=== PATIENT | female | born 1965 | race Caucasian/White ===

== ENCOUNTER 2018-04-19 10:41 | Emergency (ER) | payer MEDICARE, MEDICAID, SELFPAY ==
[2018-04-19 10:46] VITALS: BP 123/68; PULSE 84; RESP 20; TEMP 36.6; O2SAT 97
--- NOTE | 2018-04-19 10:59 | ED.GENADUL_ITS ---
Discharge Plan Disposition Patient Disposition: HOME Condition: Improving Discharge Details Chief Complaint: RespSymp Clinical Impression: Acute bronchitis Primary Care Provider: Iliana Hurt ED Provider: Moe Taylor Home Meds and New Rx's Prescriptions: New azithromycin 250 mg tablet See Rx Instructions .ROUTE .COMPLEX Qty: 6 RF: 0 Continued cholecalciferol (vitamin D3) [Vitamin D3] 1,000 UNIT capsule 1,000 unit PO DAILY RF: 0 acetaminophen [Mapap Extra Strength] 500 MG tablet 1 - 2 tab PO PRN PRNRF: 0 methylphenidate HCl [Ritalin] 20 MG tablet 20 mg PO TID RF: 0 bupropion HCl [Wellbutrin] 100 MG tablet 100 mg PO BID RF: 0 Discharge Instructions Instructions: Acute Bronchitis (ED) Additional Instructions: Home to rest. Small, frequent sips of fluids to maintain hydration. Recommend continue with Tylenol and ibuprofen as needed for aches, pains, fever. Follow-up with regular doctor if not improving in 7 days time. Medical Decision Making 52-year-old female presents from home stating she has had 10-14 days of cough, congestion that over the past 2-3 days has become productive of yellow sputum. She has ongoing subjective fever chills. He had some posttussive emesis but no persistent nausea or abdominal pain. Her vital signs are normal and she is well-appearing. Consistent with a developing bronchitis likely secondary to previous flulike illness. Discussed with her options for management and will place her on a course of antibiotics to include coverage of atypical organisms HPI General Mode of arrival: ambulatory . Date/Time Provider Initiated Documentation: 04/19/18 10:42 . Limitations to Documentation: no limitations . Information obtained by: patient . History of Present Illness 52 year old F p resents to the emergency department with the chief complaint of Cough, congestion, fever, production of sputum over greater than 10 days, described as moderate, Quality is described as dull, and is localized to the chest. Patient started experiencing this day(s) and it has been constant. No relieving factors improve symptom(s), No exacerbating factors reported . Patient notes fever/chills, loss of appetite, weakness and other (Posttussive emesis). Patient did receive the following treatments prior to arrival, none Related Data Home Medications Medication Instructions Recorded Confirmed cholecalciferol (vitamin D3) 1,000 unit PO DAILY 06/13/15 04/19/18 [Vitamin D3] acetaminophen [Mapap Extra 1 - 2 tab PO PRN PRN 08/19/15 04/19/18 Strength] bupropion HCl [Wellbutrin] 100 mg PO BID 05/27/17 04/19/18 methylphenidate HCl [Ritalin] 20 mg PO TID 05/27/17 04/19/18 azithromycin See Rx Instructions .ROUTE 04/19/18 .COMPLEX #6 tab Previous Rx's Medication Instructions Recorded azithromycin See Rx Instructions .ROUTE 04/19/18 .COMPLEX #6 tab Allergies Allergy/AdvReac Type Severity Reaction Status Date / Time codeine AdvReac Unknown unable to Unverified 04/19/18 10:49 take related to colon removal ibuprofen AdvReac Unknown unable to Unverified 04/19/18 10:49 take related to colon removal General Stated Complaint: RespSymp WILL: 3 Review of Systems Review of Systems 8 systems reviewed and otherwise neg PFSH Social History Smoking and Tabacco status: Never Exam Narrative Exam Narrative: GEN: awake, alert, oriented 3. Pleasant, well groomed, interactive. HEAD: Normocephalic, atraumatic ENT: Mucous membranes moist, oropharynx unremarkable, External ear exam unremarkable EYES: PERRL, EOMI NECK: Full ROM, no HAYDEN, no menigismus CHEST/RESP: Nontender, clear to auscultation bilateral, no wheeze/rhonchi/rales, cough noted CARDIOVASCULAR: RRR, no murmur, rub padma. 2+ Rad pulse bilateral ABDOMEN: Soft, nontender, no mass. +Bowel sounds EXT: Full ROM, no edema, no rash Neuro: Grossly normal neurologic exam, conversant, interactive. Psych: Speech fluent, thoughts congruent, affect normal Course Vital Signs Temperature 36.6 C 04/19/18 10:46 Pulse 84 04/19/18 10:46 Respiratory Rate 20 04/19/18 10:46 Blood Pressure 123/68 04/19/18 10:46 Pulse Oximetry 97 04/19/18 10:46 Temperature 36.6 C 04/19/18 10:46 Temperature Source Temporal Artery Scan 04/19/18 10:46 Pulse 84 04/19/18 10:46 Respiratory Rate 20 04/19/18 10:46 Respiratory Effort Non-Labored 04/19/18 10:50 Respiratory Depth Normal 04/19/18 10:50 Blood Pressure 123/68 04/19/18 10:46 Blood Pressure Position Sitting 04/19/18 10:46 Pulse Oximetry 97 04/19/18 10:46 Oxygen Delivery Method Room Air 04/19/18 10:46 Oxygen Flow Rate 0 04/19/18 10:46 Pain Level 8 04/19/18 10:46
== END 2018-04-19 11:11 | disposition home or self-care (01) ==
PROVIDERS: Emergency Provider Emergency Medicine; PCP Nurse Practitioner
DX: R50.9 Fever, unspecified (principal); R09.89 Other specified symptoms and signs involving the circulatory and respiratory systems; J20.9 Acute bronchitis, unspecified
CPT/HCPCS: 99283

== ENCOUNTER 2018-05-09 10:15 | Outpatient (CLI) | payer MEDICARE, MEDICAID, SELFPAY ==
[2018-05-09 12:23] LABS: TSH (W/Ref FT4) 1.86 uIU/mL (0.358-3.74)
[2018-05-10 12:35] LABS: SS-A Antibody 2.1 Units (<20)
[2018-05-10 12:36] LABS: SS-B (La) Ab, IgG 4.1 Units (<20)
== END 2018-05-09 10:35 ==
PROVIDERS: PCP Nurse Practitioner; Visit Provider Physician Assistant
DX: R43.0 Anosmia (principal); R43.2 Parageusia; R09.89 Other specified symptoms and signs involving the circulatory and respiratory systems
CPT/HCPCS: 36415; 84443; 86235

== ENCOUNTER 2018-07-26 10:26 | Outpatient (REF) | payer MEDICARE, MEDICAID, SELFPAY ==
[2018-07-26 13:15] LABS: HCT 25.9 % (36.0-46.0); HGB 8.1 g/dL (12.0-15.5); Mean Corp. HGB Concentration 31.3 g/dL (32.0-36.0); Mean Corpuscular Hemoglobin 30.8 pg (27.0-33.0); Mean Corpuscular Volume 98.5 fL (80-95); Mean Platelet Volume 11.7 fL (8.0-11.0); Platelet Count 184 x1000/uL (130-400); RBC 2.63 m/cumm (4.00-5.20); RBC Distribution Width 14.6 % (11.7-14.6); White Blood Cell Count 5.26 k/cumm (4.4-10.8)
[2018-07-26 13:37] LABS: Iron 20 ug/dL (50-175); Total Iron Binding Capacity 383 ug/dL (250-450); Transferrin Sat 5 % (15-50)
[2018-07-26 14:00] LABS: Anion Gap 10.3 mmol/L (3-11); BUN 13 mg/dL (7-18); CO2 24.7 mmol/L (21.0-32.0); Calcium 8.1 mg/dL (8.5-10.1); Chloride 107 mmol/L (98-107); Ferritin 27 ng/mL (8-388); Glucose 128 mg/dL (70-100); Potassium 4.3 mmol/L (3.5-5.1); Sodium 142 mmol/L (136-145); Vitamin B12 593 pg/mL (193-986)
[2018-07-28 06:29] LABS: Vitamin D 25 Total 22.9 ng/ml (30-100)
== END 2018-07-26 10:46 ==
LOC: NCHCN 10:26
PROVIDERS: PCP Nurse Practitioner; Visit Provider Nurse Practitioner Family
DX: E55.9 Vitamin D deficiency, unspecified (principal); E53.8 Deficiency of other specified B group vitamins; R53.83 Other fatigue; C18.9 Malignant neoplasm of colon, unspecified
CPT/HCPCS: 80048; 82306; 85027; 82607; 82728; 83540; 83550

== ENCOUNTER 2018-07-29 16:31 | Observation (INO) | payer MEDICARE, MEDICAID, SELFPAY ==
[2018-07-29 16:33] VITALS: BP 117/57; PULSE 97; RESP 16; TEMP 37; O2SAT 98
[2018-07-29 17:02] VITALS: BP 116/40; BP 118/60; BP 124/61; PULSE 105; PULSE 90; PULSE 97
[2018-07-29 17:31] LABS: Abs Immature Grans 0.02 k/cumm (0.0-0.09); Absolute Basophil Count 0.02 k/cumm (0.0-0.2); Absolute Eosinophil Count 0.04 k/cumm (0.0-0.7); Absolute Lymphocyte Count 1.31 k/cumm (1.2-3.4); Absolute Monocyte Count 0.46 k/cumm (0.11-0.7); Absolute Neutrophil Count 3.33 k/cumm (1.2-6.7); Basophils % 0.4; Eosinophils % 0.8; Immature Grans % 0.4; Lymphocytes % 25.3; Mean Corp. HGB Concentration 30.9 g/dL (32.0-36.0); Mean Corpuscular Hemoglobin 30.4 pg (27.0-33.0); Mean Corpuscular Volume 98.2 fL (80-95); Mean Platelet Volume 10.8 fL (8.0-11.0); Monocytes % 8.9; Neutrophils % 64.2; Platelet Count 171 x1000/uL (130-400); RBC 2.24 m/cumm (4.00-5.20); RBC Distribution Width 14.9 % (11.7-14.6); White Blood Cell Count 5.18 k/cumm (4.4-10.8)
[2018-07-29 17:38] LABS: HGB 6.8 g/dL (12.0-15.5)
[2018-07-29 17:46] LABS: INR 1.1 (0.9-1.1); PTT Activated 19.8 sec (21.0-31.4)
[2018-07-29 17:49] LABS: ALT 26 U/L (12-78); AST 37 U/L (15-37); Albumin 2.9 g/dL (3.4-5.0); Alkaline Phosphatase 82 U/L (46-116); Anion Gap 9.5 mmol/L (3-11); BUN 11 mg/dL (7-18); Bilirubin, Total 0.6 mg/dL (0.2-1.0); CO2 24.5 mmol/L (21.0-32.0); CREATININE 0.79 mg/dL (0.55-1.02); Calcium 8.1 mg/dL (8.5-10.1); Chloride 106 mmol/L (98-107); Glucose 180 mg/dL (70-100); Magnesium 1.9 mg/dL (1.8-2.4); Potassium 3.8 mmol/L (3.5-5.1); Sodium 140 mmol/L (136-145); Total Protein 6.3 g/dL (6.4-8.2)
[2018-07-29 17:53] LABS: Troponin I < 0.02 ng/mL (0.00-0.06)
--- NOTE | 2018-07-29 18:38 | ED.GENADUL_ITS ---
Discharge Plan Disposition Patient Disposition: [facility] INPATIENT Condition: Stable Discharge Details Chief Complaint: GI Bleed Clinical Impression: GI bleed, History of colostomy, Anemia Primary Care Provider: Iliana Hurt ED Provider: Dede Saucedo Home Meds and New Rx's Prescriptions: No Action cholecalciferol (vitamin D3) [Vitamin D3] 1,000 UNIT capsule 2,000 unit PO DAILY RF: 0 acetaminophen [Mapap Extra Strength] 500 MG tablet 1 - 2 tab PO PRN PRNRF: 0 ferrous sulfate [iron] 325 mg (65 mg iron) Tablet 325 mg PO TID RF: 0 methylphenidate HCl [Ritalin] 20 MG tablet 20 mg PO TID RF: 0 bupropion HCl [Wellbutrin] 100 MG tablet 100 mg PO BID RF: 0 Medical Decision Making 52-year-old female with history of colon cancer status post colostomy in 1999 who presents for GI bleeding, weakness, dizziness and shortness of breath for the past week. Vitals within normal limits. Orthostats done on arrival which are negative. Labs drawn on arrival which noted a hemoglobin of 6.8, hemoglobin on 07/26 was 8.1. Normal white blood cell count. Normal coagulation studies. Normal electrolytes. Negative troponin. Abdomen soft and nontender and do not see an indication for imaging. Patient states she had her colostomy with Dr. Dyson in 1999. She states she attempted to call his office this week but was unable to reach him. She states 1 year ago he thought that the area could be cauterized as her bleeding is close to the surface and due to irritation from her colostomy bag. Patient is refusing blood transfusion. Patient drove herself to the emergency department. As patient is symptomatic and refusing blood, and is continuing to bleed, would be concerned about worsening anemia. 1800 -- Case discussed with surgery Dr. Acevedo -she recommends that colostomy bag be removed to see if there is a source of bleeding which can be cauterized with silver nitrate. If no source is seen, likely unable to do anything at this time, and to monitor her hemoglobin and follow-up with surgery as indicated. 1929 --colostomy bag removed and there was a small source approximately 1 to 2 mm noted as an area of oozing around 5:00 in the stump. This area was cauterized with silver nitrate and the bleeding was completely stopped. A colostomy bag was replaced. Will admit patient for continued monitoring and for recheck of hemoglobin this evening or tomorrow morning as she is symptomatic. She drove herself to the emergency department, and as she is symptomatic and refusing blood, would be concerned about worsening anemia and would recommend recheck of labs. 1944 --Case discussed with hospitalist -accepts patient for admission. Medical Records Medical records reviewed: Yes I reviewed the patient's medical records. Lab Data Lab results reviewed: Yes I reviewed the patient's lab results. Laboratory Tests Range/Units 07/29/18 07/29/18 07/29/18 17:20 17:20 17:20 WBC (4.4-10.8) k/cumm 5.18 RBC (4.00-5.20) m/cumm 2.24 L Hgb (12.0-15.5) g/dL 6.8 L* Hct (36.0-46.0) % 22.0 L MCV (80-95) fL 98.2 H MCH (27.0-33.0) pg 30.4 MCHC (32.0-36.0) g/dL 30.9 L RDW (11.7-14.6) % 14.9 H Plt Count (130-400) x1000/uL 171 MPV (8.0-11.0) fL 10.8 Immature Gran % 0.4 Neutrophils % 64.2 Lymphocytes % 25.3 Monocytes % 8.9 Eosinophils % 0.8 Basophils % 0.4 Absolute Neutrophils (1.2-6.7) k/cumm 3.33 Absolute Lymphocytes (1.2-3.4) k/cumm 1.31 Absolute Monocytes (0.11-0.7) k/cumm 0.46 Absolute Eosinophils (0.0-0.7) k/cumm 0.04 Absolute Basophils (0.0-0.2) k/cumm 0.02 PT (9.3-11.0) sec 11.0 INR (0.9-1.1) 1.1 APTT (21.0-31.4) sec 19.8 L Sodium (136-145) mmol/L 140 Potassium (3.5-5.1) mmol/L 3.8 Chloride (98-107) mmol/L 106 Carbon Dioxide (21.0-32.0) mmol/L 24.5 Anion Gap (3-11) mmol/L 9.5 BUN (7-18) mg/dL 11 Creatinine (0.55-1.02) mg/dL 0.79 Estimated GFR/1.73 m2 (mL/min/1.73m2) >= 60.00 Glucose (70-100) mg/dL 180 H Calcium (8.5-10.1) mg/dL 8.1 L Magnesium (1.8-2.4) mg/dL 1.9 Total Bilirubin (0.2-1.0) mg/dL 0.6 AST (15-37) U/L 37 ALT (12-78) U/L 26 Alkaline Phosphatase (46-116) U/L 82 Troponin I (0.00-0.06) ng/mL < 0.02 Total Protein (6.4-8.2) g/dL 6.3 L Albumin (3.4-5.0) g/dL 2.9 L ECG Data Attestation: I personally reviewed and interpreted this ECG (s) as follows: Interpretation: Rate of 82, sinus, no acute ST elevation or depression. QTc 430. QRS 90 HPI General Mode of arrival: ambulatory . Date/Time Provider Initiated Documentation: 07/29/18 16:41 . Limitations to Documentation: no limitations . Information obtained by: patient . HPI Narrative: Patient is a 52-year-old female with a history of colon cancer status post colectomy with colostomy in 1999 who presents with bright red GI bleeding, weakness, shortness of breath and dizziness for the past week. She states she had a similar history occur 1 year ago but resolved on its own. She does admit to frequent GI bleeding in her colostomy bag but states it only occurs over a day and resolves. She also admits to a history of anemia associated with this but denies any previous history of transfusions and states she does not want to receive any blood due to fear of disease from donated blood. She understands that this blood was tested but is still concerned and refuses. She states she saw her primary care doctor earlier this week and had labs drawn due to her anemia which noted a hemoglobin of 8. She presents today with worsening shortness of breath, dizziness, and weakness upon standing. She denies any fever, nausea, vomiting, abdominal pain. Related Data Home Medications Medication Instructions Recorded Confirmed cholecalciferol (vitamin D3) 2,000 unit PO DAILY 06/13/15 07/29/18 [Vitamin D3] acetaminophen [Mapap Extra 1 - 2 tab PO PRN PRN 08/19/15 07/29/18 Strength] bupropion HCl [Wellbutrin] 100 mg PO BID 05/27/17 07/29/18 methylphenidate HCl [Ritalin] 20 mg PO TID 05/27/17 07/29/18 ferrous sulfate [iron] 325 mg PO TID 07/29/18 07/29/18 Allergies Allergy/AdvReac Type Severity Reaction Status Date / Time codeine AdvReac Unknown unable to Unverified 07/29/18 16:46 take related to colon removal ibuprofen AdvReac Unknown unable to Unverified 07/29/18 16:46 take related to colon removal General Stated Complaint: GI Bleed WILL: 2 Review of Systems Review of Systems All systems reviewed & are unremarkable except as noted in HPI and below Constitutional Reports as per HPI, Denies chills, Reports fatigue, Denies fever(s) and Reports weakness Eyes Denies blurry vision ENT Reports dizziness, Denies sore throat and Denies throat swelling Cardiovascular Reports chest pain and Reports dyspnea Respiratory Denies cough and Reports dyspnea Gastrointestinal Denies abdominal pain, Reports hematochezia, Denies diarrhea and Denies vomiting Genitourinary Denies hematuria and Denies dysuria Musculoskeletal Denies back pain and Denies numbness Integumentary/Breasts Denies lesions and Denies rash Neurologic Reports dizziness, Denies focal weakness, Denies numbness and Reports weakness Endocrine Reports fatigue Allergic/Immunologic Denies throat swelling [facility] Medical History PTSD (post-traumatic stress disorder) (Acute) Colon cancer (Chronic) Surgical History History of endometrial ablation (Acute) S/P colectomy (Acute) H/O ileostomy (Chronic) Social History Smoking/Tobacco Use Status: Never Alcohol Intake: never Drug use: Never Do you feel safe at home: Yes Do you feel safe in your relationship?: Yes Exam Const General: cooperative, healthy appearing and no acute distress [facility] Head: normal to inspection Face and sinus: normal facial exam Eyes General: appearance normal, both eyes and all related structures EOM: EOM intact bilaterally Neck Neck: normal visual inspection and No submandibular swelling Lymphatic: no lymphadenopathy noted Chest Chest: normal inspection of the chest and no tenderness Resp Effort & Inspection: normal respiratory effort and able to speak in complete sentences Auscultation: clear to auscultation bilaterally Cardio Rate: regular rate Rhythm: regular rhythm GI Inspection: normal to inspection and other (Colostomy bag in right lower quadrant. No bleeding around site.) Palpation: soft, not firm, not rigid and nontender Auscultation: normal bowel sounds Skin General skin exam: no rashes or lesions noted Neuro General: alert, awake and oriented x3 Cognition: normal cognition Speech: speech normal Motor: muscle tone normal throughout Sensory Exam: no sensory deficits noted Extrem General: normal to inspection, full ROM and no edema Psych Appearance: grossly normal Mental Status: mental status grossly normal Speech and Movement: speech and movement normal Affect: normal affect Course Vital Signs Temperature 98.6 F 07/29/18 16:33 Pulse 97 H 07/29/18 16:33 Respiratory Rate 16 07/29/18 16:33 Blood Pressure 117/57 L 07/29/18 16:33 Pulse Oximetry 98 07/29/18 16:33 Temperature 98.6 F 07/29/18 16:33 Temperature Source Skin 07/29/18 16:33 Pulse 90 07/29/18 17:02 Respiratory Rate 16 07/29/18 16:33 Respiratory Effort 07/29/18 16:49 Blood Pressure 116/40 L 07/29/18 17:02 Blood Pressure Position Sitting 07/29/18 16:33 Pulse Oximetry 98 07/29/18 16:33 Oxygen Delivery Method Room Air 07/29/18 16:33 Oxygen Flow Rate 0 07/29/18 16:33 Pain Level 0 07/29/18 16:33
[2018-07-29 18:41] VITALS: BP 117/51; PULSE 85; RESP 18; TEMP 37.3; O2SAT 98
--- NOTE | 2018-07-29 20:22 | HPE_ITS ---
Date of service: 07/29/18 Time of Service: 20:14 Assessment and Plan (1) GI bleed: Current visit: Yes Status: Chronic Lower GI bleed secondary apparently to unspecified stomatitis. Will await results of ER cautery but in any event will watch overnight and repeat hematocrit in AM. If bleeding persists will consult surgery. History of Present Illness Chief Complaint: lower GI bleed Narrative: 52 year old female with h/o colon CA, sp/ colostomy in 1999. Present with 1 week of bleeding per stoma. On no blo od thinners. In ER hematocrit of 22 was noted. Patient declined transfusion. Surgery was consulted by phone and advised take down of ostomy bag and cautery of any visible bleeding; this is being attempted at this time. Patient denies abdominal pain. States this type of bleeding has occurred once before but resolved spontaneously.She does agree to stay in hospital and says she would reconsider transfusion if counts continued to drop Review of Systems Review of Systems All systems reviewed & are unremarkable except as noted in HPI and below PFSH Medical History PTSD (post-traumatic stress disorder) (Acute) Colon cancer (Chronic) Surgical History History of endometrial ablation (Acute) S/P colectomy (Acute) H/O ileostomy (Chronic) Social History Smoking/Tobacco Use Status: Never Alcohol Intake: never Drug use: Never Do you feel safe at home: Yes Do you feel safe in your relationship?: Yes Meds Home Medications Medication Instructions Recorded Confirmed Type cholecalciferol (vitamin D3) 2,000 unit PO DAILY 06/13/15 07/29/18 History [Vitamin D3] acetaminophen [Mapap Extra 1 - 2 tab PO PRN PRN 08/19/15 07/29/18 History Strength] bupropion HCl [Wellbutrin] 100 mg PO BID 05/27/17 07/29/18 History methylphenidate HCl [Ritalin] 20 mg PO TID 05/27/17 07/29/18 History ferrous sulfate [iron] 325 mg PO TID 07/29/18 07/29/18 History Allergies Allergy/AdvReac Type Severity Reaction Status Date / Time codeine AdvReac Unknown unable to Unverified 07/29/18 16:46 take related to colon removal ibuprofen AdvReac Unknown unable to Unverified 07/29/18 16:46 take related to colon removal Exam Narrative Exam Narrative: 117/51, 85, 18, 37.3; HEENT unremarkable; neck supple; lungs clear; heart RRR; abdomen soft, NT, ostomy in place (opaque bag, unable to assess contents visually); extr: no edema; neuro non-focal Results Labs : 07/29/18 17:20 07/29/18 17:20 Laboratory Results - last 24 hr 07/29/18 07/29/18 07/29/18 17:20 17:20 17:20 WBC 5.18 RBC 2.24 L Hgb 6.8 L* Hct 22.0 L MCV 98.2 H MCH 30.4 MCHC 30.9 L RDW 14.9 H Plt Count 171 MPV 10.8 Immature Gran % 0.4 Neutrophils % 64.2 Lymphocytes % 25.3 Monocytes % 8.9 Eosinophils % 0.8 Basophils % 0.4 Absolute Neutrophils 3.33 Absolute Lymphocytes 1.31 Absolute Monocytes 0.46 Absolute Eosinophils 0.04 Absolute Basophils 0.02 PT 11.0 INR 1.1 APTT 19.8 L Sodium 140 Potassium 3.8 Chloride 106 Carbon Dioxide 24.5 Anion Gap 9.5 BUN 11 Creatinine 0.79 Estimated GFR/1.73 m2 >= 60.00 Glucose 180 H Calcium 8.1 L Magnesium 1.9 Total Bilirubin 0.6 AST 37 ALT 26 Alkaline Phosphatase 82 Troponin I < 0.02 Total Protein 6.3 L Albumin 2.9 L Last Vital Signs Temp 37.3 C 07/29/18 18:41 Pulse 85 07/29/18 18:41 Resp 18 07/29/18 18:41 BP 117/51 L 07/29/18 18:41 Pulse Ox 98 07/29/18 18:41
[2018-07-29 21:15] VITALS: BP 135/81; PULSE 80; RESP 16; TEMP 37; O2SAT 98
[2018-07-30] VITALS (14 sets, daily range): BP systolic 91–128; BP diastolic 59–72; PULSE 65–95; RESP 14–19; TEMP 36.6–37.1; O2SAT 95–98
--- NOTE | 2018-07-30 01:19 | NUR.NOTE ---
Nursing Note: colostomy bag changed post cauterization of bleeding at site on the stoma at 1999.
[2018-07-30] MEDS: Methylphenidate 10 MG TAB 20 MG PO ×3 (07:00→17:50)
[2018-07-30 07:01] LABS: Mean Corp. HGB Concentration 29.9 g/dL (32.0-36.0); Mean Corpuscular Hemoglobin 29.7 pg (27.0-33.0); Mean Corpuscular Volume 99.5 fL (80-95); Mean Platelet Volume 10.9 fL (8.0-11.0); Platelet Count 141 x1000/uL (130-400); RBC 1.95 m/cumm (4.00-5.20); White Blood Cell Count 3.86 k/cumm (4.4-10.8)
[2018-07-30 07:09] LABS: HCT 19.4 % (36.0-46.0); HGB 5.8 g/dL (12.0-15.5)
[2018-07-30] MEDS: Pantoprazole 40 MG VIAL IVP ×2 (08:07→19:43)
[2018-07-30] MEDS: Acetaminophen 500 MG TAB 1000 MG PO (08:07)
[2018-07-30] MEDS: Ferrous Sulfate 325 MG TAB PO ×3 (08:07→19:45)
[2018-07-30] MEDS: Normal Saline Flush 10 ML SYR IVP ×2 (08:08→19:43)
[2018-07-30] MEDS: buPROPion 100 MG TAB PO (08:30)
--- NOTE | 2018-07-30 09:44 | W.PM.PROGNOT ---
Date of Service Date of service: 07/30/18 Time of Service: 09:45 Assessment and Plan (1) GI bleed: Current visit: Yes Status: Chronic Lower GI bleed secondary apparently to unspecified stomatitis, cauterized in the ED after discussion with surgery. Even so, hct dropped overnight. Given symptomatic anemia with ongoing blood loss I strongly urged Janice to proceed with transfusion, 2 units. After reviewing her concerns and the risks/benefits, she agrees to proceed. I also added PPI as a precaution, but the source does appear to be the stoma. If h/h continue to drop later today and tomorrow, will discuss with surgery and expand evaluation likely to include EGD. (2) Anemia, blood loss: Current visit: Yes Status: Acute Has been on iron chronically, likely this represents acute on chronic blood loss. Has responded to oral iron in past but has taken months. (3) ADHD: Current visit: Yes Status: Acute Mood and behavior appears stable, continue outpatient methyfenidate and bupropion (4) DVT prophylaxis: Current visit: Yes Status: Acute holding medical prophylaxis with active bleed. SCDs. (5) Discharge planning issues: Current visit: Yes Status: Acute Hemodynamically stable so continue on medical floor. Home when h/h stable. Subjective Patient reports: no new complaints and afebrile; denies diarrhea and nausea Interval history since last seen: Still feeling lightheaded with sitting up, also some shortness of breath and slight chest tightness with activity. No current chest pain or palpitations. She feels week all over but nothing focal. Has not noted more blood in ostomy bag since cautery done, though stool occult blood positive. Exam Narrative Exam Narrative: HEENT: conjunctiva clear, pale, MMM. neck supple; lungs CTAB with normal effort; heart RRR no m/g/r; abdomen soft, NT, ostomy in place (no gross red blood or clots in bag or around stoma); extr: no edema, not tender; neuro non-focal Objective Objective Clinical Data: Abnormal lab results 07/29/18 07/29/18 07/29/18 Range/Units 17:20 17:20 17:20 WBC (4.4-10.8) k/cumm RBC 2.24 L (4.00-5.20) m/cumm Hgb 6.8 L* (12.0-15.5) g/dL Hct 22.0 L (36.0-46.0) % MCV 98.2 H (80-95) fL MCHC 30.9 L (32.0-36.0) g/dL RDW 14.9 H (11.7-14.6) % APTT 19.8 L (21.0-31.4) sec Glucose 180 H (70-100) mg/dL Calcium 8.1 L (8.5-10.1) mg/dL Total Protein 6.3 L (6.4-8.2) g/dL Albumin 2.9 L (3.4-5.0) g/dL Crossmatch 07/30/18 07/30/18 Range/Units 06:30 07:35 WBC 3.86 L (4.4-10.8) k/cumm RBC 1.95 L (4.00-5.20) m/cumm Hgb 5.8 L* (12.0-15.5) g/dL Hct 19.4 L* (36.0-46.0) % MCV 99.5 H (80-95) fL MCHC 29.9 L (32.0-36.0) g/dL RDW 15.0 H (11.7-14.6) % APTT (21.0-31.4) sec Glucose (70-100) mg/dL Calcium (8.5-10.1) mg/dL Total Protein (6.4-8.2) g/dL Albumin (3.4-5.0) g/dL Crossmatch See Detail Vital Signs Temperature 36.9 C 07/30/18 07:20 Temperature Source Tympanic 07/30/18 07:20 Pulse 66 07/30/18 07:20 Pulse Rhythm Regular 07/30/18 07:50 Respiratory Rate 17 07/30/18 07:20 Respiratory Effort Non-Labored 07/30/18 07:50 Respiratory Depth Normal 07/30/18 07:50 Respiratory Pattern Normal 07/30/18 07:50 Blood Pressure 100/66 07/30/18 07:20 Blood Pressure Position Sitting 07/29/18 16:33 Pulse Oximetry 96 07/30/18 07:20 Oxygen Delivery Method Room Air 07/30/18 07:20 Oxygen Flow Rate 0 07/30/18 07:20 Pain Level 4 07/30/18 08:07 Intake & Output 07/29/18 07/29/18 07/30/18 11:59 23:59 11:59 Intake Total 240 / 240 Output Total 300 / 300 Balance -60 / -60 Weight 97.931 kg Intake: Oral 240 / 240 Output: Stool 300 / 300 Other: Urine Color Yellow Yellow Urine Appearance Clear Clear Urine Odor None None Stool Occult Blood Positive Stool Size Moderate Stool Characteristics Liquid Brown Emesis Description None Voiding Methods Toilet Toilet Laboratory Results WBC 3.86 k/cumm (4.4-10.8) L 07/30/18 06:30 RBC 1.95 m/cumm (4.00-5.20) L 07/30/18 06:30 Hgb 5.8 g/dL (12.0-15.5) L* 07/30/18 06:30 Hct 19.4 % (36.0-46.0) L* 07/30/18 06:30 MCV 99.5 fL (80-95) H 07/30/18 06:30 MCH 29.7 pg (27.0-33.0) 07/30/18 06:30 MCHC 29.9 g/dL (32.0-36.0) L 07/30/18 06:30 RDW 15.0 % (11.7-14.6) H 07/30/18 06:30 Plt Count 141 x1000/uL (130-400) 07/30/18 06:30 MPV 10.9 fL (8.0-11.0) 07/30/18 06:30 Immature Gran % 0.4 07/29/18 17:20 Neutrophils % 64.2 07/29/18 17:20 Lymphocytes % 25.3 07/29/18 17:20 Monocytes % 8.9 07/29/18 17:20 Eosinophils % 0.8 07/29/18 17:20 Basophils % 0.4 07/29/18 17:20 Absolute Neutrophils 3.33 k/cumm (1.2-6.7) 07/29/18 17:20 Absolute Lymphocytes 1.31 k/cumm (1.2-3.4) 07/29/18 17:20 Absolute Monocytes 0.46 k/cumm (0.11-0.7) 07/29/18 17:20 Absolute Eosinophils 0.04 k/cumm (0.0-0.7) 07/29/18 17:20 Absolute Basophils 0.02 k/cumm (0.0-0.2) 07/29/18 17:20 PT 11.0 sec (9.3-11.0) 07/29/18 17:20 INR 1.1 (0.9-1.1) 07/29/18 17:20 APTT 19.8 sec (21.0-31.4) L 07/29/18 17:20 Sodium 140 mmol/L (136-145) 07/29/18 17:20 Potassium 3.8 mmol/L (3.5-5.1) 07/29/18 17:20 Chloride 106 mmol/L (98-107) 07/29/18 17:20 Carbon Dioxide 24.5 mmol/L (21.0-32.0) 07/29/18 17:20 Anion Gap 9.5 mmol/L (3-11) 07/29/18 17:20 BUN 11 mg/dL (7-18) 07/29/18 17:20 Creatinine 0.79 mg/dL (0.55-1.02) 07/29/18 17:20 Estimated GFR/1.73 m2 >= 60.00 (mL/min/1.73m2) 07/29/18 17:20 Glucose 180 mg/dL (70-100) H 07/29/18 17:20 Calcium 8.1 mg/dL (8.5-10.1) L 07/29/18 17:20 Magnesium 1.9 mg/dL (1.8-2.4) 07/29/18 17:20 Total Bilirubin 0.6 mg/dL (0.2-1.0) 07/29/18 17:20 AST 37 U/L (15-37) 07/29/18 17:20 ALT 26 U/L (12-78) 07/29/18 17:20 Alkaline Phosphatase 82 U/L (46-116) 07/29/18 17:20 Troponin I < 0.02 ng/mL (0.00-0.06) 07/29/18 17:20 Total Protein 6.3 g/dL (6.4-8.2) L 07/29/18 17:20 Albumin 2.9 g/dL (3.4-5.0) L 07/29/18 17:20 Patient ABO/Rh A Positive 07/30/18 07:35 Antibody Screen Negative 07/30/18 07:35 Crossmatch See Detail 07/30/18 07:35
--- NOTE | 2018-07-30 14:17 | PDOC.CMIN ---
Care Management Initial Assess REASON FOR HOSPITALIZATION:: Lower GI Bleed PAST MEDICAL HISTORY/PAST SURGICAL HISTORY:: Medical: PTSD (post-traumatic stress disorder) (Acute); Colon cancer (Chronic). Surgical: History of endometrial ablation (Acute); S/P colectomy (Acute); H/O ileostomy (Chronic) PREVIOUS FUNCTIONAL STATUS/SOCIAL/FAMILY SUPPORTS:: This is the first [facility] Inpatient admission for Janice. She has 5 children and they all live close to her. The youngest, 20 yo, is a dabetic and lives with her at their [place] home. She also has custody of her 15 yo granddaughter. Current source of income is SSID. Independent at baseline and had had a colostomy since age 32. She has a English Mendez, Max, that she loves. CURRENT FUNCTIONAL STATUS:: Lying in bed. One unit of blood has just finished transfusing and she said she feels a little better. Is hoping to be back on her feet and ready to go home tomorrow. ADVANCE DIRECTIVES:: None on file at [facility] Has patient been provided with information about the portal?: No Did the patient sign up for the portal?: No CODE STATUS:: Full Code CODE STATUS COMMENT:: Full Code INSURANCE COVERAGE / FINANCIAL ISSUES:: Medicaid. Medicare CURRENT HOME/COMMUNITY SERVICES/EQUIPMENT:: None at this time PRIMARY CARE PHYSICIAN:: Iliana Hurt NP POTENTIAL DISCHARGE NEEDS:: None identified at this time PATIENT/FAMILY EDUCATION NEEDS:: Discharge instructions and follow up appointments ANTICIPATED BARRIERS TO DISCHARGE:: None identified TRANSPORTATION:: Family will transpport PLAN:: Janice will return home when medically cleared for discharge. No services needed. Family will transport.
--- NOTE | 2018-07-30 15:03 | INITIAL_ITS ---
Care Management Initial Assess REASON FOR HOSPITALIZATION:: Lower GI Bleed PAST MEDICAL HISTORY/PAST SURGICAL HISTORY:: Medical: PTSD (post-traumatic stress disorder) (Acute); Colon cancer (Chronic). Surgical: History of endometrial ablation (Acute); S/P colectomy (Acute); H/O ileostomy (Chronic) PREVIOUS FUNCTIONAL STATUS/SOCIAL/FAMILY SUPPORTS:: This is the first [facility] Inpatient admission for Janice. She has 5 children and they all live close to her. The youngest, 20 yo, is a dabetic and lives with her at their [place] home. She also has custody of her 15 yo granddaughter. Current source of income is SSID. Independent at baseline and had had a colostomy since age 32. She has a Green[place] Mendez, Max, that she loves. CURRENT FUNCTIONAL STATUS:: Lying in bed. One unit of blood has just finished transfusing and she said she feels a little better. Is hoping to be back on her feet and ready to go home tomorrow. ADVANCE DIRECTIVES:: None on file at [facility] Has patient been provided with information about the portal?: No Did the patient sign up for the portal?: No CODE STATUS:: Full Code CODE STATUS COMMENT:: Full Code INSURANCE COVERAGE / FINANCIAL ISSUES:: Medicaid. Medicare CURRENT HOME/COMMUNITY SERVICES/EQUIPMENT:: None at this time PRIMARY CARE PHYSICIAN:: Iliana Hurt NP POTENTIAL DISCHARGE NEEDS:: None identified at this time PATIENT/FAMILY EDUCATION NEEDS:: Discharge instructions and follow up appointments ANTICIPATED BARRIERS TO DISCHARGE:: None identified TRANSPORTATION:: Family will transpport PLAN:: Janice will return home when medically cleared for discharge. No services needed. Family will transport.
[2018-07-30 18:03] LABS: HCT 27.6 % (36.0-46.0)
[2018-07-31 00:15] VITALS: BP 153/72; PULSE 82; RESP 16; TEMP 37.4; O2SAT 98
[2018-07-31 04:00] VITALS: BP 121/62; PULSE 74
[2018-07-31] MEDS: Methylphenidate 10 MG TAB 20 MG PO ×2 (06:07→11:30)
[2018-07-31 07:03] LABS: HCT 28.7 % (36.0-46.0)
[2018-07-31 07:30] VITALS: O2SAT 97
[2018-07-31 07:40] VITALS: BP 139/89; PULSE 97; RESP 20; TEMP 37.3; O2SAT 95
[2018-07-31] MEDS: Pantoprazole 40 MG VIAL IVP (07:44)
[2018-07-31] MEDS: Ferrous Sulfate 325 MG TAB PO (07:46)
[2018-07-31] MEDS: Acetaminophen 500 MG TAB 1000 MG PO (07:46)
[2018-07-31] MEDS: Normal Saline Flush 10 ML SYR IVP (07:47)
--- NOTE | 2018-07-31 09:08 | W.PM.PROGNOT ---
Date of Service Date of service: 07/31/18 Time of Service: 09:08 Assessment and Plan (1) GI bleed: Current visit: Yes Status: Chronic Lower GI bleed secondary apparently to stomatitis, cauterized in the ED after discussion with surgery. Even so, hct dropped the night of admission to josé miguel of 5.8%. Tolerated transfusion, 2 units. Apropriate increase in hgb, stable from last night to this morning, no ongoing bleeding noted (ostomy contents FOB neg) Can f/u with surgery (2) Chest pain: Current visit: Yes Status: Acute History and exam do suggest most likely MSK with some anxiety component. EKG reassuring. Even so, given age and risk factors and patient concern I think it prudent to further assess for cardiac disease and PE. Will get troponin and d-dime, CT prn. If these reassuring, treat with APAP prn. (3) Anemia, blood loss: Current visit: Yes Status: Acute Has been on iron chronically, likely this represents acute on chronic blood loss. Has responded to oral iron in past but has taken months. Labs prior to admission showed stores still quite low (trans sat 5%) despite high dose oral iron. Given this, consider IV iron as outpatient. (4) ADHD: Current visit: Yes Status: Acute Mood and behavior appears stable, continue outpatient methyfenidate and bupropion (5) DVT prophylaxis: Current visit: Yes Status: Acute holding medical prophylaxis with active bleed. SCDs. (6) Discharge planning issues: Current visit: Yes Status: Acute Hemodynamically stable so continue on medical floor. Home today if reassuring assessment for chest pain Subjective Patient reports: voiding w/o difficulty; denies blood in stool, vomiting and fever Interval history since last seen: events: s/p 2 units PRBC yesterday chest pain overnight, EKG no change from admission, not c/w ischemia per Dr. Diaz S: Patient c/o ongoing left sided chest pain. Sudden onset at rest last night around 9pm. Pressure type pain, heaviness, to left shoulder and upper arm, a/w numbness/tingling in left arm and then left neck to side of face. Has gradually improved overnight. She didn't want medication to cover it up so declined acetaminophen and alprazolam. She is a little SOB and lightheaded still, but not clearly worse. She does have some nausea, but she relates that to getting worked up emotionally last night with the pain. She hasn't noted any more bleeding into ostomy bag. No abdominal pain (had some soreness last night when crying. Exam Narrative Exam Narrative: GEN: A&O, NAD, speaking in full sentances. HEENT: conjunctiva clear, pale, MMM. neck supple, nl ROM and not tender, no masses. lungs: CTAB with normal effort; heart RRR no m/g/r; abdomen soft, NT, ostomy in place (no gross red blood or clots in bag or around stoma); MSK: no chest wall tenderness. some increase shoulder pain with abduction left shoulder, neg spurling, negative impingment signs. extr: no edema, not tender; neuro non-focal, nl strength/senstion UE Objective Objective Clinical Data: Abnormal lab results 07/30/18 07/30/18 07/31/18 Range/Units 07:35 17:20 06:49 Hgb 9.0 L D 9.0 L (12.0-15.5) g/dL Hct 27.6 L D 28.7 L (36.0-46.0) % Crossmatch See Detail Vital Signs Temperature 37.4 C 07/31/18 00:15 Temperature Source Tympanic 07/31/18 00:15 Pulse 74 07/31/18 04:00 Pulse Rhythm Regular 07/30/18 19:40 Respiratory Rate 16 07/31/18 00:15 Respiratory Effort Non-Labored 07/30/18 19:40 Respiratory Depth Normal 07/30/18 19:40 Respiratory Pattern Normal 07/30/18 19:40 Blood Pressure 121/62 07/31/18 04:00 Blood Pressure Position Sitting 07/29/18 16:33 Pulse Oximetry 98 07/31/18 00:15 Oxygen Delivery Method Room Air 07/31/18 00:15 Oxygen Flow Rate 0 07/31/18 00:15 Pain Level 5 07/31/18 07:46 Intake & Output 07/30/18 07/30/18 07/31/18 11:59 23:59 11:59 Intake Total 600 / 2040 1440 / 2040 Output Total 475 / 475 Balance 600 / 1565 965 / 1565 Intake: Oral 1140 / 1140 Blood Product 600 / 900 300 / 900 Rbc Leuko Reduced Unit 600 / 600 [id number] Rbc Leuko Reduced Unit 300 / 300 [id number] Output: Stool 475 / 475 Other: Urine Color Yellow Yellow Urine Appearance Clear Clear Urine Odor None None Comment voided in toilet Stool Occult Blood Positive Negative Voiding Methods Toilet Toilet Laboratory Results WBC 3.86 k/cumm (4.4-10.8) L 07/30/18 06:30 RBC 1.95 m/cumm (4.00-5.20) L 07/30/18 06:30 Hgb 9.0 g/dL (12.0-15.5) L 07/31/18 06:49 Hct 28.7 % (36.0-46.0) L 07/31/18 06:49 MCV 99.5 fL (80-95) H 07/30/18 06:30 MCH 29.7 pg (27.0-33.0) 07/30/18 06:30 MCHC 29.9 g/dL (32.0-36.0) L 07/30/18 06:30 RDW 15.0 % (11.7-14.6) H 07/30/18 06:30 Plt Count 141 x1000/uL (130-400) 07/30/18 06:30 MPV 10.9 fL (8.0-11.0) 07/30/18 06:30 Immature Gran % 0.4 07/29/18 17:20 Neutrophils % 64.2 07/29/18 17:20 Lymphocytes % 25.3 07/29/18 17:20 Monocytes % 8.9 07/29/18 17:20 Eosinophils % 0.8 07/29/18 17:20 Basophils % 0.4 07/29/18 17:20 Absolute Neutrophils 3.33 k/cumm (1.2-6.7) 07/29/18 17:20 Absolute Lymphocytes 1.31 k/cumm (1.2-3.4) 07/29/18 17:20 Absolute Monocytes 0.46 k/cumm (0.11-0.7) 07/29/18 17:20 Absolute Eosinophils 0.04 k/cumm (0.0-0.7) 07/29/18 17:20 Absolute Basophils 0.02 k/cumm (0.0-0.2) 07/29/18 17:20 PT 11.0 sec (9.3-11.0) 07/29/18 17:20 INR 1.1 (0.9-1.1) 07/29/18 17:20 APTT 19.8 sec (21.0-31.4) L 07/29/18 17:20 Sodium 140 mmol/L (136-145) 07/29/18 17:20 Potassium 3.8 mmol/L (3.5-5.1) 07/29/18 17:20 Chloride 106 mmol/L (98-107) 07/29/18 17:20 Carbon Dioxide 24.5 mmol/L (21.0-32.0) 07/29/18 17:20 Anion Gap 9.5 mmol/L (3-11) 07/29/18 17:20 BUN 11 mg/dL (7-18) 07/29/18 17:20 Creatinine 0.79 mg/dL (0.55-1.02) 07/29/18 17:20 Estimated GFR/1.73 m2 >= 60.00 (mL/min/1.73m2) 07/29/18 17:20 Glucose 180 mg/dL (70-100) H 07/29/18 17:20 Calcium 8.1 mg/dL (8.5-10.1) L 07/29/18 17:20 Magnesium 1.9 mg/dL (1.8-2.4) 07/29/18 17:20 Total Bilirubin 0.6 mg/dL (0.2-1.0) 07/29/18 17:20 AST 37 U/L (15-37) 07/29/18 17:20 ALT 26 U/L (12-78) 07/29/18 17:20 Alkaline Phosphatase 82 U/L (46-116) 07/29/18 17:20 Troponin I < 0.02 ng/mL (0.00-0.06) 07/29/18 17:20 Total Protein 6.3 g/dL (6.4-8.2) L 07/29/18 17:20 Albumin 2.9 g/dL (3.4-5.0) L 07/29/18 17:20 Patient ABO/Rh A Positive 07/30/18 07:35 Antibody Screen Negative 07/30/18 07:35 Crossmatch See Detail 07/30/18 07:35
[2018-07-31 09:52] LABS: Troponin I < 0.02 ng/mL (0.00-0.06)
[2018-07-31 09:58] LABS: D-Dimer 270 ng/mlFEU (<500)
--- NOTE | 2018-07-31 11:39 | DSE_ITS ---
Date of service: 07/31/18 Time of Service: 11:38 DS: Diagnosis Discharge Diagnosis (1) GI bleed: Status: Chronic (2) Chest pain: Status: Acute (3) Anemia, blood loss: Status: Acute (4) ADHD: Status: Acute (5) DVT prophylaxis: Status: Acute (6) Discharge planning issues: Status: Acute Discharge Plan Disposition Patient Disposition: HOME Condition: Stable Discharge Details Chief Complaint: GI Bleed Reason For Visit: LOWER GI BLEED Admit Date/Time: 07/29/18 20:23 Admit Provider: Denys Ortiz Attending Provider: Denys Ortiz Primary Care Provider: Iliana Hurt ED Provider: Dede Saucedo Hospital Course Hospital Course: Patient presented to the emergency room July 29 after noting a week of significant bleeding from her stoma including clots in her ostomy bag. Her hemoglobin was noted to be 8.1 on July 26 (last hemoglobin was normal at 12.5 on May 27, 2017), and was 6.8 at presentation in the emergency room. She was symptomatically with lightheadedness and shortness of breath. The stoma was cauterized after consultation with surgery, and the active bleeding stopped. Even so, the hemoglobin dropped from 6.8-5.8 overnight. Patient was initially hesitant to have a transfusion, but agreed given this acute drop in her symptoms to a transition of 2 units packed red blood cells. She tolerated it well. Her hemoglobin increased to 9 after transfusion and was stable morning of discharge. Overnight prior to discharge the patient experienced some left sided chest and shoulder pain associated with numbness in her arm and neck. EKG was unchanged. She was not acutely more short of breath or dizzy. The pain was persistent, so troponin and d-dimer were drawn next morning which were both normal. Exam was most consistent with musculoskeletal pain with possible nerve impingement. Patient was reassured and can follow-up as outpatient. Home Meds and New Rx's Prescriptions: Continued cholecalciferol (vitamin D3) [Vitamin D3] 1,000 UNIT capsule 2,000 unit PO DAILY RF: 0 acetaminophen [Mapap Extra Strength] 500 MG tablet 1 - 2 tab PO PRN PRNRF: 0 ferrous sulfate [iron] 325 mg (65 mg iron) Tablet 325 mg PO TID RF: 0 methylphenidate HCl [Ritalin] 20 MG tablet 20 mg PO TID RF: 0 bupropion HCl [Wellbutrin] 100 MG tablet 100 mg PO BID RF: 0 Discharge Instructions Instructions: Gastrointestinal Bleeding (DC) Additional Instructions: Do the blood test prior to follow up in the clinic Call Dr. Dyson to follow up as planned regarding the stoma. Come in right away if it starts to bleed a lot again Activity:: Activity as Tolerated Equipment/Supplies:: No Equipment Needed Diet:: As Tolerated Discharge Orders Other Ambulatory Orders: Hemoglobin/Hematocrit (Routine) Timeframe: 3 Days Location: Determined by Patient Ordered By: Gordon Richardson Exam Narrative Exam Narrative: GEN: A&O, NAD, speaking in full sentances. HEENT: conjunctiva clear, pale, MMM. neck supple, nl ROM and not tender, no masses. lungs: CTAB with normal effort; heart RRR no m/g/r; abdomen soft, NT, ostomy in place (no gross red blood or clots in bag or around stoma); MSK: no chest wall tenderness. some increase shoulder pain with abduction left shoulder, neg spurling, negative impingment signs. extr: no edema, not tender; neuro non-focal, nl strength/senstion UE DS: Data Vitals/I&O Vitals and I&O: Vital Signs Temperature 37.3 C 07/31/18 07:40 Temperature Source Tympanic 07/31/18 07:40 Pulse 97 H 07/31/18 07:40 Pulse Rhythm Regular 07/31/18 07:45 Respiratory Rate 20 07/31/18 07:40 Respiratory Effort Non-Labored 07/31/18 07:45 Respiratory Depth Normal 07/31/18 07:45 Respiratory Pattern Normal 07/31/18 07:45 Blood Pressure 139/89 07/31/18 07:40 Blood Pressure Position Sitting 07/29/18 16:33 Pulse Oximetry 95 07/31/18 07:40 Oxygen Delivery Method Room Air 07/31/18 07:40 Oxygen Flow Rate 0 07/31/18 07:40 Pain Level 5 07/31/18 07:46 Intake & Output 07/30/18 07/30/18 07/31/18 11:59 23:59 11:59 Intake Total 600 / 2040 1440 / 2040 250 / 250 Output Total 475 / 475 Balance 600 / 1565 965 / 1565 250 / 250 Intake: Oral 1140 / 1140 250 / 250 Blood Product 600 / 900 300 / 900 Rbc Leuko Reduced Unit 600 / 600 [id number] Rbc Leuko Reduced Unit 300 / 300 [id number] Output: Stool 475 / 475 Other: Urine Color Yellow Yellow Urine Appearance Clear Clear Clear Urine Odor None None Comment voided in toilet indep to toilet self. Stool Occult Blood Positive Negative Voiding Methods Toilet Toilet Toilet Labs on day of discharge: Labs from last 24 hours 07/31/18 07/31/18 07/31/18 09:15 09:15 06:49 Hgb 9.0 L Hct 28.7 L D-Dimer 270 Troponin I < 0.02 Patient ABO/Rh Antibody Screen Crossmatch 07/30/18 07/30/18 17:20 07:35 Hgb 9.0 L D Hct 27.6 L D D-Dimer Troponin I Patient ABO/Rh A Positive Antibody Screen Negative Crossmatch See Detail [facility] Medical History PTSD (post-traumatic stress disorder) (Acute) Colon cancer (Chronic) Surgical History History of endometrial ablation (Acute) S/P colectomy (Acute) H/O ileostomy (Chronic) Social History Smoking/Tobacco Use Status: Never Alcohol Intake: never Drug use: Never Do you feel safe at home: Yes Do you feel safe in your relationship?: Yes
--- NOTE | 2018-07-31 12:18 | PDOC.CMDIS ---
LACE Index Scoring Tool - Questions: Length of Stay (in days): 2 Acuity (Admit via E.D.?): Yes E.D. Visits: 1 - Answers: Total Score: 6 Risk of Readmission: Low Risk Care Management Discharge Reason for Hospitalization: Lower GI Bleed Discharge Plan: Janice will return home today. No services needed. She has an appointment already scheduled with Dr. Manfred Dyson. Plans to drive herself home. Patient/Family Education Needs: Discharge instructions
== END 2018-07-31 12:39 | disposition home or self-care (01) ==
LOC: ER 20:40 → MS 21:11
PROVIDERS: Internal Medicine; Admitting Provider General Practice; Emergency Provider Physician Assistant; PCP Nurse Practitioner; Visit Provider Family Medicine
DX: K94.01 Colostomy hemorrhage (principal); D62 Acute posthemorrhagic anemia; Y83.3 Surgical operation with formation of external stoma as the cause of abnormal reaction of the patient, or of later complication, without mention of misadventure at the time of the procedure; R19.5 Other fecal abnormalities; R07.9 Chest pain, unspecified; R20.0 Anesthesia of skin; M25.512 Pain in left shoulder; F90.9 Attention-deficit hyperactivity disorder, unspecified type; Z85.038 Personal history of other malignant neoplasm of large intestine; Z90.49 Acquired absence of other specified parts of digestive tract
CPT/HCPCS: 36415; 36430; 80053; 85027; 86850; 86900; 86901; 86920; 99222; 99232; 99239; 99285; NC; 83735; 84484; 85014; 85018; 85025; 85379; 85610; 85730; 93005; 93010; 99219; 99284; G0378; P9016

== ENCOUNTER 2018-08-03 13:51 | Outpatient (CLI) | payer MEDICARE, MEDICAID, SELFPAY ==
[2018-08-03 14:08] LABS: HCT 30.9 % (36.0-46.0); HGB 9.4 g/dL (12.0-15.5)
== END 2018-08-03 14:11 ==
PROVIDERS: PCP Nurse Practitioner; Visit Provider Family Medicine
DX: K92.2 Gastrointestinal hemorrhage, unspecified (principal)
CPT/HCPCS: 36415; 85014; 85018

== ENCOUNTER 2018-08-10 18:41 | Emergency (ER) | payer MEDICARE, MEDICAID, SELFPAY ==
--- NOTE | 2018-08-10 18:43 | W.ED.GENAD ---
Discharge Plan Disposition Patient Disposition: AGAINST MEDICAL ADVICE Condition: Fair Discharge Details Chief Complaint: GI Bleed Clinical Impression: GI bleed, Anemia, blood loss Primary Care Provider: Iliana Hurt ED Provider: Theresa Mistry Home Meds and New Rx's Prescriptions: Continued cholecalciferol (vitamin D3) [Vitamin D3] 1,000 UNIT capsule 2,000 unit PO DAILY RF: 0 acetaminophen [Mapap Extra Strength] 500 MG tablet 1 - 2 tab PO PRN PRNRF: 0 ferrous sulfate [iron] 325 mg (65 mg iron) Tablet 325 mg PO TID RF: 0 methylphenidate HCl [Ritalin] 20 MG tablet 20 mg PO TID RF: 0 Discharge Instructions Instructions: Anemia (ED) Additional Instructions: The vessel that was bleeding under your stoma was controlled with direct pressure. However, you need continued care as this has failed more conservative measurements of the past few weeks. You are leaving AGAINST MEDICAL ADVICE. Please follow-up with Dr. Dyson as soon as possible. You may return here at any point for further care. Spoke with Dr. Dyson who is happy to see you and care for your bleeding, he is expecting you at the [facility] ER. Referrals: Segundo Dyson DO [OSTEOPATHIC DOCTOR] - Iliana Hurt [Primary Care Provider] - Medical Decision Making Patient is a 52-year-old female presenting today with chief complaint of GI bleed. Patient is brought in via EMS. Patient has a st[place] [address] Dyson. Patient was seen here on 07/31/2018 at which time a small bleeding vessel on the inferior aspect of the stoma was cauterized. Patient was admitted overnight and needed to be transfused secondary to her anemic state. Patient was seen [address] Segundo Dyson at [facility], patient's preferred surgeon, at which time the vessel was stitched. Patient reports that this evening, she began noting bleeding into her pouch again. Has emptied 3 bags of blood. At this time, patient is 125 cc in the bag which was emptied approximately an hour and a half prior to arrival. She denies any pain. Is feeling weak and fatigued. States that when she initially noted the bleeding, she suddenly became weak and had difficulty with ambulation. EKG was reviewed by Dr. Saucedo with no acute ischemic changes noted. Consulted with Dr. Segundo Dyson at [facility]. He advised that as the patient has failed conservative management she may need operative intervention. He did advise that I remove the bag and apply direct pressure to the bleeding vessel. I did so at Hyster reaction and applied Rusher for 10 minutes. Patient had scant amount of bleeding noted prior to the pressure application Patient's hemoglobin is 9.5, this is up from 9.4 that was noted recently. Her potassium is low at 3.1. Magnesium is also low at 1.6, calcium low at 7.9. Type and screen was performed. INR is normal. Consulted with Dr. Dyson once again. Patient prefers to go to see him for definitive care. I advised that this would be AMA as patient will take POV to his facility. Patient refuses to have general surgeon here care for her, again requests Dr. Dyson. She is aware of the risks, particular the risk of deterioration when she leaves the facility. I expresssed by concern with her symptomatic anemia and advised she remain here which she refuses. She is cognitively appropriate and is going to [facility] ED where Dr. Dyson is expecting to see her. Al of her questions and concerns were addressed, she is in agreement with this plan. HPI General Mode of arrival: EMS. Date/Time Provider Initiated Documentation: 08/10/18 18:43. Limitations to Documentation: no limitations. Information obtained by: patient, family, EMS and RN notes reviewed. History of Present Illness 52 year old F presents to the emergency department with the chief complaint of GI bleed, described as moderate, with intensity rated at 1 (no pain). Patient started experiencing this hour(s) and it has been constant. Immobilization improves symptom(s), Movement worsens symptoms (feels lightheaded with movement) . Patient notes weakness; denies chest pain, cough, fever/chills, headaches, loss of appetite, nausea/vomiting, rash, shortness of breath and syncope (near syncope prior to arrival). Patient did receive the following treatments prior to arrival, none Related Data Home Medications Medication Instructions Recorded Confirmed cholecalciferol (vitamin D3) 2,000 unit PO DAILY 06/13/15 08/10/18 [Vitamin D3] acetaminophen [Mapap Extra 1 - 2 tab PO PRN PRN 08/19/15 08/10/18 Strength] methylphenidate HCl [Ritalin] 20 mg PO TID 05/27/17 08/10/18 ferrous sulfate [iron] 325 mg PO TID 07/29/18 08/10/18 Allergies Allergy/AdvReac Type Severity Reaction Status Date / Time codeine AdvReac Unknown unable to Unverified 08/10/18 18:59 take related to colon removal ibuprofen AdvReac Unknown unable to Unverified 08/10/18 18:59 take related to colon removal General WILL: 2 Review of Systems Constitutional Reports as per HPI, Denies chills, Reports fatigue, Denies fever(s), Denies headache(s) and Reports weakness (has felt lightheaded) ENT Denies headache(s) Cardiovascular Reports as per HPI, Denies chest pain and Denies dyspnea Respiratory Reports as per HPI, Denies cough and Denies dyspnea Gastrointestinal Reports as per HPI Musculoskeletal Reports as per HPI and Denies back pain Integumentary/Breasts Reports as per HPI and Denies rash Neurologic Reports as per HPI, Denies headache(s) and Reports weakness (has felt lightheaded) Endocrine Reports fatigue [facility] Medical History PTSD (post-traumatic stress disorder) (Acute) Colon cancer (Chronic) Surgical History History of endometrial ablation (Acute) S/P colectomy (Acute) H/O ileostomy (Chronic) Social History Smoking/Tobacco Use Status: Never Alcohol Intake: never Drug use: Never Do you feel safe at home: Yes Do you feel safe in your relationship?: Yes Exam Const General: cooperative, healthy appearing, comfortable, no acute distress and well developed Nutritional Appearance: average body habitus and well nourished Orientation: alert and awake HENAK Head: normal to inspection Mouth: moist mucous membranes Eyes Conjunctivae: conjunctival abnormality bilaterally pallor Resp Effort & Inspection: normal respiratory effort, able to speak in complete sentences and no respiratory distress Auscultation: clear to auscultation bilaterally, no rales, no rhonchi and no wheezes Cardio Rate: regular rate Rhythm: regular rhythm Heart Sounds: S1 normal and S2 normal GI Inspection: abnormal to inspection (patient has bleeding at the 6 oclock position of ostomy), no abdominal wall ecchymosis and non-distended Palpation: soft, no hepatosplenomegaly, not firm, no guarding, not rigid and nontender Percussion: normal to percussion Auscultation: normal bowel sounds Back/Spine/Pelvis Back: no CVA tenderness Skin General skin exam: no rashes or lesions noted Trauma: no lacerations or abrasions Neuro General: alert and awake Cognition: normal cognition Speech: speech normal Gait: normal gait Psych Appearance: grossly normal and well kempt Mental Status: mental status grossly normal Speech and Movement: speech and movement normal
[2018-08-10 18:50] VITALS: BP 139/70; PULSE 108; RESP 16; TEMP 37.2; O2SAT 95
[2018-08-10 19:27] LABS: Abs Immature Grans 0.01 k/cumm (0.0-0.09); Absolute Basophil Count 0.02 k/cumm (0.0-0.2); Absolute Eosinophil Count 0.17 k/cumm (0.0-0.7); Absolute Lymphocyte Count 2.14 k/cumm (1.2-3.4); Absolute Monocyte Count 0.77 k/cumm (0.11-0.7); Basophils % 0.3; Eosinophils % 2.8; HCT 31.3 % (36.0-46.0); HGB 9.5 g/dL (12.0-15.5); Immature Grans % 0.2; Mean Corp. HGB Concentration 30.4 g/dL (32.0-36.0); Mean Corpuscular Hemoglobin 29.7 pg (27.0-33.0); Mean Corpuscular Volume 97.8 fL (80-95); Monocytes % 12.6; Neutrophils % 49.1; Platelet Count 183 x1000/uL (130-400); White Blood Cell Count 6.11 k/cumm (4.4-10.8)
[2018-08-10 19:38] LABS: INR 1.1 (0.9-1.1)
[2018-08-10 19:45] LABS: ALT 33 U/L (12-78); AST 57 U/L (15-37); Albumin 3.1 g/dL (3.4-5.0); Alkaline Phosphatase 83 U/L (46-116); Anion Gap 11.7 mmol/L (3-11); BUN 11 mg/dL (7-18); Bilirubin, Total 0.7 mg/dL (0.2-1.0); CO2 22.3 mmol/L (21.0-32.0); Calcium 7.9 mg/dL (8.5-10.1); Chloride 105 mmol/L (98-107); Glucose 165 mg/dL (70-100); Magnesium 1.6 mg/dL (1.8-2.4); Potassium 3.1 mmol/L (3.5-5.1); Sodium 139 mmol/L (136-145); Total Protein 6.4 g/dL (6.4-8.2)
[2018-08-10 19:46] LABS: Troponin I < 0.05 ng/mL (0.00-0.06)
[2018-08-10] MEDS: Normal Saline 1,000 ML 1000 ML IV (19:59)
[2018-08-10] MEDS: Normal Saline Flush 10 ML SYR IVP (19:59)
--- NOTE | 2018-08-10 20:26 | ED.GENADUL_ITS ---
Discharge Plan Disposition Patient Disposition: AGAINST MEDICAL ADVICE Condition: Fair Discharge Details Chief Complaint: GI Bleed Clinical Impression: GI bleed, Anemia, blood loss Primary Care Provider: Iliana Hurt ED Provider: Theresa Mistry Home Meds and New Rx's Prescriptions: Continued cholecalciferol (vitamin D3) [Vitamin D3] 1,000 UNIT capsule 2,000 unit PO DAILY RF: 0 acetaminophen [Mapap Extra Strength] 500 MG tablet 1 - 2 tab PO PRN PRNRF: 0 ferrous sulfate [iron] 325 mg (65 mg iron) Tablet 325 mg PO TID RF: 0 methylphenidate HCl [Ritalin] 20 MG tablet 20 mg PO TID RF: 0 Discharge Instructions Instructions: Anemia (ED) Additional Instructions: The vessel that was bleeding under your stoma was controlled with direct pressure. However, you need continued care as this has failed more conservative measurements of the past few weeks. You are leaving AGAINST MEDICAL ADVICE. Please follow-up with Dr. Dyson as soon as possible. You may return here at any point for further care. Spoke with Dr. Dyson who is happy to see you and care for your bleeding, he is expecting you at the [facility] ER. Referrals: Segundo Dyson DO [OSTEOPATHIC DOCTOR] - Iliana Hurt [Primary Care Provider] - Medical Decision Making Patient is a 52-year-old female presenting today with chief complaint of GI bleed. Patient is brought in via EMS. Patient has a st[place] [address] Dyson. Patient was seen here on 07/31/2018 at which time a small bleeding vessel on the inferior aspect of the stoma was cauterized. Patient was admitted overnight and needed to be transfused secondary to her anemic state. Patient was seen [address] Segnudo Dyson at [facility], patient's preferred surgeon, at which time the vessel was stitched. Patient reports that this evening, she began noting bleeding into her pouch again. Has emptied 3 bags of blood. At this time, patient is 125 cc in the bag which was emptied approximately an hour and a half prior to arrival. She denies any pain. Is feeling weak and fatigued. States that when she initially noted the bleeding, she suddenly became weak and had difficulty with ambulation. EKG was reviewed by Dr. Saucedo with no acute ischemic changes noted. Consulted with Dr. Segundo Dyson at [facility]. He advised that as the patient has failed conservative management she may need operative intervention. He did advise that I remove the bag and apply direct pressure to the bleeding vessel. I did so at Hyster reaction and applied Rusher for 10 minutes. Patient had scant amount of bleeding noted prior to the pressure application Patient's hemoglobin is 9.5, this is up from 9.4 that was noted recently. Her potassium is low at 3.1. Magnesium is also low at 1.6, calcium low at 7.9. Type and screen was performed. INR is normal. Consulted with Dr. Dyson once again. Patient prefers to go to see him for definitive care. I advised that this would be AMA as patient will take POV to his facility. Patient refuses to have general surgeon here care for her, again requests Dr. Dyson. She is aware of the risks, particular the risk of deterioration when she leaves the facility. I expresssed by concern with her symptomatic anemia and advised she remain here which she refuses. She is cognitively appropriate and is going to [facility] ED where Dr. Dyson is expecting to see her. Al of her questions and concerns were addressed, she is in agreement with this plan. HPI General Mode of arrival: EMS . Date/Time Provider Initiated Documentation: 08/10/18 18:43 . Limitations to Documentation: no limitations . Information obtained by: patient, family, EMS and RN notes reviewed . History of Present Illness 52 year old F presents to the emergency department with the chief complaint of GI bleed, described as moderate, with intensity rated at 1 (no pain). Patient started experiencing this hour(s) and it has been constant. Immobilization improves symptom(s), Movement worsens symptoms (feels lightheaded with movement) . Patient notes weakness; denies chest pain, cough, fever/chills, headaches, loss of appetite, nausea/vomiting, rash, shortness of breath and syncope (near syncope prior to arrival). Patient did receive the following treatments prior to arrival, none Related Data Home Medications Medication Instructions Recorded Confirmed cholecalciferol (vitamin D3) 2,000 unit PO DAILY 06/13/15 08/10/18 [Vitamin D3] acetaminophen [Mapap Extra 1 - 2 tab PO PRN PRN 08/19/15 08/10/18 Strength] methylphenidate HCl [Ritalin] 20 mg PO TID 05/27/17 08/10/18 ferrous sulfate [iron] 325 mg PO TID 07/29/18 08/10/18 Allergies Allergy/AdvReac Type Severity Reaction Status Date / Time codeine AdvReac Unknown unable to Unverified 08/10/18 18:59 take related to colon removal ibuprofen AdvReac Unknown unable to Unverified 08/10/18 18:59 take related to colon removal General WILL: 2 Review of Systems Constitutional Reports as per HPI, Denies chills, Reports fatigue, Denies fever(s), Denies headache(s) and Reports weakness (has felt lightheaded) ENT Denies headache(s) Cardiovascular Reports as per HPI, Denies chest pain and Denies dyspnea Respiratory Reports as per HPI, Denies cough and Denies dyspnea Gastrointestinal Reports as per HPI Musculoskeletal Reports as per HPI and Denies back pain Integumentary/Breasts Reports as per HPI and Denies rash Neurologic Reports as per HPI, Denies headache(s) and Reports weakness (has felt lightheaded) Endocrine Reports fatigue [facility] Medical History PTSD (post-traumatic stress disorder) (Acute) Colon cancer (Chronic) Surgical History History of endometrial ablation (Acute) S/P colectomy (Acute) H/O ileostomy (Chronic) Social History Smoking/Tobacco Use Status: Never Alcohol Intake: never Drug use: Never Do you feel safe at home: Yes Do you feel safe in your relationship?: Yes Exam Const General: cooperative, healthy appearing, comfortable, no acute distress and well developed Nutritional Appearance: average body habitus and well nourished Orientation: alert and awake HENPR Head: normal to inspection Mouth: moist mucous membranes Eyes Conjunctivae: conjunctival abnormality bilaterally pallor Resp Effort & Inspection: normal respiratory effort, able to speak in complete sentences and no respiratory distress Auscultation: clear to auscultation bilaterally, no rales, no rhonchi and no wheezes Cardio Rate: regular rate Rhythm: regular rhythm Heart Sounds: S1 normal and S2 normal GI Inspection: abnormal to inspection (patient has bleeding at the 6 oclock position of ostomy), no abdominal wall ecchymosis and non-distended Palpation: soft, no hepatosplenomegaly, not firm, no guarding, not rigid and nontender Percussion: normal to percussion Auscultation: normal bowel sounds Back/Spine/Pelvis Back: no CVA tenderness Skin General skin exam: no rashes or lesions noted Trauma: no lacerations or abrasions Neuro General: alert and awake Cognition: normal cognition Speech: speech normal Gait: normal gait Psych Appearance: grossly normal and well kempt Mental Status: mental status grossly normal Speech and Movement: speech and movement normal
[2018-08-10 20:55] VITALS: BP 141/64; PULSE 92; RESP 16; O2SAT 97
== END 2018-08-10 20:56 | disposition left against medical advice (07) ==
PROVIDERS: Emergency Provider Physician Assistant; PCP Nurse Practitioner
DX: K92.2 Gastrointestinal hemorrhage, unspecified (principal); D62 Acute posthemorrhagic anemia; Z53.29 Procedure and treatment not carried out because of patient's decision for other reasons
CPT/HCPCS: 36415; 80053; 86850; 86900; 86901; 93005; 96360; 99284; 83735; 84484; 85025; 85610; 93010

== ENCOUNTER 2018-09-28 12:12 | Outpatient (REF) | payer MEDICARE, MEDICAID, SELFPAY ==
--- NOTE | 2018-09-28 10:30 | SKI_PTH ---
PATIENT: Janice Briones LOC: [facility] U#:[id number] AGE/SX: 52/F ROOM: RE09/28/[address]: Gordon Richardson : 1965 BED: DIS: 09/28/2018 SPEC #: [id number] RECD: 09/29/18 12:41 STATUS: WILFRID REQ #: [id number] MARIANO: 09/28/18 10:[address]: Gordon Richardson DEPT: Surgical Specimen RECD BY: Florence Beckwith ENTERED: 09/29/18 12:43 SP TYPE: KEVIN FERNANDEZ DR: Iliana Hurt Tissues: 1 - SKIN BIOPSY(SHAVE/PUNCH) Procedures: SKIN LEVEL 4 Comments: [id number]
== END 2018-09-28 12:32 ==
LOC: NCHCN 12:12
PROVIDERS: PCP Nurse Practitioner; Visit Provider Family Medicine
DX: L82.1 Other seborrheic keratosis (principal); L28.1 Prurigo nodularis
CPT/HCPCS: 88305

== ENCOUNTER 2018-10-03 00:46 | Outpatient (CLI) | payer MEDICARE, MEDICAID, SELFPAY ==
--- NOTE | 2018-10-03 12:47 | DI.MAMMO_ITS ---
SYMPTOMS/DIAGNOSIS: SCREENING, Z12.39 MAMMOGRAM: Mammograms were interpreted according to the usual protocol including computer analysis with CAD system, tomosynthesis and C view imaging. The breasts are of moderate density with fairly symmetrical distribution of fibroglandular tissue. No dominant mass or clumped microcalcification identified in either breast. The current examination is compared with previous examinations including December 2016 and there has been no gross interval change in appearance in comparison with the previous studies. CONCLUSION: No specific evidence of malignancy at this time. Routine screening examinations are suggested at yearly intervals due to the family history of breast carcinoma. Category I. Breast density Category B. MQSA ASSESSMENT OF FINDINGS: Negative. Category 1. Patient will receive a letter notifying them of these results. BI-RADS category B. There are scattered areas of fibroglandular density.
== END 2018-10-03 01:06 ==
PROVIDERS: PCP Nurse Practitioner; Visit Provider Nurse Practitioner
DX: Z12.31 Encounter for screening mammogram for malignant neoplasm of breast (principal)
CPT/HCPCS: 77063; 77067

== ENCOUNTER 2019-01-21 21:29 | Emergency (ER) | payer MEDICARE, MEDICAID, SELFPAY ==
[2019-01-21 21:33] VITALS: BP 150/79; PULSE 85; RESP 14; TEMP 37.2; O2SAT 94
--- NOTE | 2019-01-21 21:45 | ED.GENADUL_ITS ---
Discharge Plan Disposition Patient Disposition: HOME Condition: Stable Discharge Details Chief Complaint: Abd Prob Clinical Impression: Ileostomy care Primary Care Provider: Iliana Hurt ED Provider: Moe Taylor Home Meds and New Rx's Prescriptions: No Action cholecalciferol (vitamin D3) [Vitamin D3] 1,000 UNIT capsule 2,000 unit PO DAILY RF: 0 acetaminophen [Mapap Extra Strength] 500 MG tablet 1 - 2 tab PO PRN PRNRF: 0 ferrous sulfate [iron] 325 mg (65 mg iron) Tablet 325 mg PO TID RF: 0 methylphenidate HCl [Ritalin] 20 MG tablet 20 mg PO TID RF: 0 Medical Decision Making 53-year-old female status post colectomy with ileostomy, followed by Dr. Segundo Dyson. States that she had a large blood clot in her ostomy bag this evening, was worried that she had bleeding requiring suture repair and transfusion from the ostomy site last summer. She is afebrile with a blood pressure 150/79, pulse is 85. On exam, the ostomy bag is taken down there is discrete area of 1 cm oozing blood on the superior and left side rim of the ostomy. Screening labs obtained patient's hemoglobin is at her baseline, 9.6 today with hematocrit 31. Patient seen in consultation by Dr Bravo, who performed bedside cautery. Patient remains stable, she has pre-standing plans to follow-up in clinic with Dr. Dyson this week. She understands urgent return precautions to the ER. Lab Data Lab results reviewed: Yes I reviewed the patient's lab results. Labs: Laboratory Results - last 24 hr 01/21/19 01/21/19 22:00 22:00 WBC 4.73 RBC 3.67 L Hgb 9.6 L Hct 31.2 L MCV 85.0 MCH 26.2 L MCHC 30.8 L RDW 15.4 H Plt Count 142 MPV 11.2 H Immature Gran % 0.2 Neutrophils % 56.7 Lymphocytes % 27.9 Monocytes % 11.2 Eosinophils % 3.8 Basophils % 0.2 Absolute Neutrophils 2.68 Absolute Lymphocytes 1.32 Absolute Monocytes 0.53 Absolute Eosinophils 0.18 Absolute Basophils 0.01 RBC Morphology See below Hypochromasia 1+ Sodium 143 Potassium 3.4 L Chloride 106 Carbon Dioxide 27.1 Anion Gap 9.9 BUN 17 Creatinine 0.72 Estimated GFR/1.73 m2 >= 60.00 Glucose 219 H Calcium 8.2 L Magnesium 1.7 L Total Bilirubin 0.4 AST 45 H ALT 28 Alkaline Phosphatase 89 Total Protein 6.9 Albumin 3.1 L HPI General Mode of arrival: ambulatory . Date/Time Provider Initiated Documentation: 01/21/19 21:29 . Limitations to Documentation: no limitations . Information obtained by: patient . History of Present Illness 53 year old F presents to the emergency department with the chief complaint of Bleeding from ileostomy site, and is localized to the abdomen. Patient reports no radiation. Patient started experiencing this minute(s) and it has been now resolved. No relieving factors improve symptom(s), No exacerbating factors reported . Patient notes no other symptoms.. Patient did receive the following treatments prior to arrival, none Related Data Home Medications Medication Instructions Recorded Confirmed cholecalciferol (vitamin D3) 2,000 unit PO DAILY 06/13/15 01/21/19 [Vitamin D3] acetaminophen [Mapap Extra 1 - 2 tab PO PRN PRN 08/19/15 01/21/19 Strength] methylphenidate HCl [Ritalin] 20 mg PO TID 05/27/17 01/21/19 ferrous sulfate [iron] 325 mg PO TID 07/29/18 01/21/19 Allergies Allergy/AdvReac Type Severity Reaction Status Date / Time codeine AdvReac Unknown unable to Unverified 01/21/19 21:36 take related to colon removal ibuprofen AdvReac Unknown unable to Unverified 01/21/19 21:36 take related to colon removal General Stated Complaint: Abd Prob WILL: 3 Review of Systems Narrative: Similar to previous last summer. Has followed with Dr. Dyson. No vomiting, no abdominal pain, no fever. Reports intermittent muscle cramps sometimes with low magnesium [facility] Medical History Colon cancer (Chronic) PTSD (post-traumatic stress disorder) (Acute) Social History Smoking/Tobacco Use Status: Never Alcohol Intake: never Drug use: Never Substance use type: does not use Do you feel safe at home: Yes Do you feel safe in your relationship?: Yes Exam Narrative Exam Narrative: GEN: awake, alert, oriented 3. Pleasant, well groomed, interactive. HEAD: Normocephalic, atraumatic ENT: Mucous membranes moist, oropharynx unremarkable, External ear exam unremarkable EYES: PERRL, EOMI NECK: Full ROM, no HAYDEN, no menigismus CHEST/RESP: Nontender, clear to auscultation bilateral, no wheeze/rhonchi/rales CARDIOVASCULAR: RRR, no murmur, rub padma. 2+ Rad pulse bilateral ABDOMEN: Soft, nontender, no mass. +Bowel sounds. Right lower quadrant ileostomy dressed, clean dry and intact. EXT: Full ROM, no edema, no rash Neuro: Grossly normal neurologic exam, conversant, interactive. Psych: Speech fluent, thoughts congruent, affect normal Course Vital Signs Vital signs: Vital Signs Temperature 37.2 C 01/21/19 21:33 Pulse 85 01/21/19 21:33 Respiratory Rate 14 01/21/19 21:33 Blood Pressure 150/79 H 01/21/19 21:33 Pulse Oximetry 94 L 01/21/19 21:33 Temperature 37.2 C 01/21/19 21:33 Temperature Source Temporal Artery Scan 01/21/19 21:33 Pulse 85 01/21/19 21:33 Respiratory Rate 14 01/21/19 21:33 Respiratory Effort Non-Labored 01/21/19 21:35 Blood Pressure 150/79 H 01/21/19 21:33 Blood Pressure Position Sitting 01/21/19 21:33 Pulse Oximetry 94 L 01/21/19 21:33 Oxygen Delivery Method Room Air 01/21/19 21:33 Oxygen Flow Rate 0 01/21/19 21:33 Pain Level 0 01/21/19 21:33
[2019-01-21] MEDS: Normal Saline Flush 10 ML SYR IVP (22:03)
[2019-01-21 22:08] LABS: Abs Immature Grans 0.01 k/cumm (0.0-0.09); Absolute Basophil Count 0.01 k/cumm (0.0-0.2); Absolute Eosinophil Count 0.18 k/cumm (0.0-0.7); Absolute Lymphocyte Count 1.32 k/cumm (1.2-3.4); Absolute Monocyte Count 0.53 k/cumm (0.11-0.7); Absolute Neutrophil Count 2.68 k/cumm (1.2-6.7); Basophils % 0.2; Eosinophils % 3.8; HCT 31.2 % (36.0-46.0); HGB 9.6 g/dL (12.0-15.5); Immature Grans % 0.2; Lymphocytes % 27.9; Mean Corp. HGB Concentration 30.8 g/dL (32.0-36.0); Mean Corpuscular Hemoglobin 26.2 pg (27.0-33.0); Mean Platelet Volume 11.2 fL (8.0-11.0); Monocytes % 11.2; Neutrophils % 56.7; Platelet Count 142 x1000/uL (130-400); RBC 3.67 m/cumm (4.00-5.20); RBC Distribution Width 15.4 % (11.7-14.6); White Blood Cell Count 4.73 k/cumm (4.4-10.8)
[2019-01-21 22:18] LABS: Hypochromasia 1+
[2019-01-21 22:21] LABS: ALT 28 U/L (14-59); AST 45 U/L (15-37); Albumin 3.1 g/dL (3.4-5.0); Alkaline Phosphatase 89 U/L (46-116); Anion Gap 9.9 mmol/L (3-11); BUN 17 mg/dL (7-18); Bilirubin, Total 0.4 mg/dL (0.2-1.0); CO2 27.1 mmol/L (21.0-32.0); CREATININE 0.72 mg/dL (0.55-1.02); Calcium 8.2 mg/dL (8.5-10.1); Chloride 106 mmol/L (98-107); Glucose 219 mg/dL (74-106); Magnesium 1.7 mg/dL (1.8-2.4); Potassium 3.4 mmol/L (3.5-5.1); Sodium 143 mmol/L (136-145); Total Protein 6.9 g/dL (6.4-8.2)
[2019-01-21] MEDS: Lidocaine 2% Jelly 6 ML SYR (22:59)
[2019-01-21] MEDS: Silver Nitrate Stick 1 EACH (22:59)
--- NOTE | 2019-01-21 23:21 | W.SURGCON ---
Date of service: 01/21/19 Time of Service: 23:21 Assessment and Plan Assessment and plan (1) Stoma bleed: Status: Acute Assessment and plan: there are areas at 3 & 5oclock that seem to have areas that are irritated. This area is cauterized w/ electrolcautery. EMLA cream was applies for 25 mins prior. The procedure was done under clean conditions. Elcetrocuatery was used to ablate the areas that appear to be very irritated. No bleeding was noted and pt tolerated the procedure. She was given a fresh pouch. She will f/u w/ her own surgeon. History of Present Illness Narrative: Pt has had a exterminator stoma for CRC/crohn's. She comes in to the ED tonight w/ bleeding from the stoma. The whole stoma is very friable. There is no hypergranulation around the edge. There are no skin excoriations. There is no active bleeding as I am seeing it. Consults Consult date: 01/21/19 Requesting physician: Moe Taylor Review of Systems All systems reviewed & are unremarkable except as noted in HPI and below PFSH Medical History Colon cancer (Chronic) PTSD (post-traumatic stress disorder) (Acute) Surgical History H/O ileostomy (Chronic) History of endometrial ablation (Acute) S/P colectomy (Acute) Social History Smoking/Tobacco Use Status: Never Alcohol Intake: never Drug use: Never Substance use type: does not use Do you feel safe at home: Yes Do you feel safe in your relationship?: Yes Exam Const General: cooperative, healthy appearing, comfortable, no acute distress, well developed and well groomed Nutritional Appearance: average body habitus and well nourished Orientation: alert, awake and oriented x3 HENMT Head: normal to inspection, normocephalic and atraumatic Ears: hearing grossly normal bilaterally and external ears normal General nose exam: external nose normal Face and sinus: normal facial exam and sinuses nontender Mouth: oral mucosae normal, lip normal, tongue normal and moist mucous membranes Teeth and gingiva: dentition normal Eyes General: appearance normal, both eyes and all related structures Conjunctivae: conjunctivae normal Sclera: sclerae normal Pupils: PERRL Neck Neck: normal visual inspection and full ROM Chest Chest: normal inspection of the chest Resp Effort & Inspection: normal respiratory effort, able to speak in complete sentences, no cough, no nasal flaring, not tachypneic and no use of accessory muscles Auscultation: clear to auscultation bilaterally, no rales, no rhonchi and no wheezes Cardio Jugular venous pressure: no JVD Rate: regular rate Rhythm: regular rhythm GI Inspection: normal to inspection, no edema, non-distended and scar Palpation: soft, no masses, nontender and No ascites Auscultation: normal bowel sounds Other: stoma in RLQ. beefy red and healthy appearing. no active bleeding. It is slt friable at 3 and 5 olcock positions. skin around is clean and well maintained. Skin General skin exam: no rashes or lesions noted Trauma: no lacerations or abrasions Neuro General: alert, oriented x3, oriented, gait normal, moves all extremities, no focal motor deficits and CN's II-XI intact bilaterally Cognition: normal cognition Speech: speech normal Gait: normal gait Motor: muscle tone normal throughout Extrem General: normal to inspection, full ROM and no clubbing, cyanosis or edema Psych Appearance: grossly normal and well kempt Mental Status: mental status grossly normal Speech and Movement: speech and movement normal Affect: normal affect Results Last Vital Signs Temp 37.2 C 01/21/19 21:33 Pulse 85 01/21/19 21:33 Resp 14 01/21/19 21:33 BP 150/79 H 01/21/19 21:33 Pulse Ox 94 L 01/21/19 21:33 Labs Result diagrams: 01/21/19 22:00 01/21/19 22:00 Labs: Laboratory Results - last 24 hr 01/21/19 01/21/19 22:00 22:00 WBC 4.73 RBC 3.67 L Hgb 9.6 L Hct 31.2 L MCV 85.0 MCH 26.2 L MCHC 30.8 L RDW 15.4 H Plt Count 142 MPV 11.2 H Immature Gran % 0.2 Neutrophils % 56.7 Lymphocytes % 27.9 Monocytes % 11.2 Eosinophils % 3.8 Basophils % 0.2 Absolute Neutrophils 2.68 Absolute Lymphocytes 1.32 Absolute Monocytes 0.53 Absolute Eosinophils 0.18 Absolute Basophils 0.01 RBC Morphology See below Hypochromasia 1+ Sodium 143 Potassium 3.4 L Chloride 106 Carbon Dioxide 27.1 Anion Gap 9.9 BUN 17 Creatinine 0.72 Estimated GFR/1.73 m2 >= 60.00 Glucose 219 H Calcium 8.2 L Magnesium 1.7 L Total Bilirubin 0.4 AST 45 H ALT 28 Alkaline Phosphatase 89 Total Protein 6.9 Albumin 3.1 L
[2019-01-21] MEDS: Lidocaine/Prilocaine Cream 5 GM TUBE (23:31)
[2019-01-22] MEDS: Acetaminophen 500 MG TAB 1000 MG PO
[2019-01-22] MEDS: Acetaminophen 500 MG TAB (00:21)
== END 2019-01-22 00:15 | disposition home or self-care (01) ==
PROVIDERS: Emergency Provider Emergency Medicine; PCP Nurse Practitioner
DX: K94.01 Colostomy hemorrhage (principal); Z90.49 Acquired absence of other specified parts of digestive tract; Z85.038 Personal history of other malignant neoplasm of large intestine
CPT/HCPCS: 36415; 80053; 99252; 99283; 83735; 85025; 99284

== ENCOUNTER 2019-03-13 11:49 | Outpatient (REF) | payer MEDICARE, MEDICAID, SELFPAY ==
[2019-03-13 13:28] LABS: Bilirubin Negative (Negative); Blood Negative (Negative); Clarity Cloudy (Clear); Glucose Negative (Negative); Ketones Negative (Negative); Leukocyte Esterase Trace (Negative); Nitrite Positive (Negative); Specific Gravity >= 1.030 (1.005-1.025); Urobilinogen 0.2 EU/dL (Up TO 0.2)
[2019-03-13 13:49] LABS: Bacteria Rare HPF (Negative); C & S Indicated? Yes; Casts Negative LPF (Negative); Crystals Many Amorphous HPF (Negative); Epithelial Cells Rare HPF (Negative); Mucus Negative (Negative); RBC 0-2 HPF (0-2)
== END 2019-03-13 12:09 ==
LOC: NCHCN 11:49
PROVIDERS: PCP Nurse Practitioner; Visit Provider Nurse Practitioner Family
DX: R39.9 Unspecified symptoms and signs involving the genitourinary system (principal)
CPT/HCPCS: 87077; 81003; 81015; 87086; 87186

== ENCOUNTER 2019-03-20 11:35 | Outpatient (CLI) | payer MEDICARE, MEDICAID, SELFPAY ==
--- NOTE | 2019-03-20 11:15 | DI.RAD_ITS ---
EXAM: XR CHEST 2V PA LATERAL INDICATION: COUGH R05. COMPARISON: No exams were available for comparison TECHNIQUE: 2D digital imaging was performed. FINDINGS: The heart size is normal. The lungs are clear. There is no infiltrate or effusion. IMPRESSION: Negative chest x-ray.
== END 2019-03-20 11:55 ==
PROVIDERS: PCP Nurse Practitioner; Visit Provider Nurse Practitioner
DX: R05 Cough (principal)
CPT/HCPCS: 71046

== ENCOUNTER 2019-03-20 12:24 | Outpatient (REF) | payer MEDICARE, MEDICAID, SELFPAY ==
[2019-03-20 19:26] LABS: Iron 45 ug/dL (50-170); Total Iron Binding Capacity 422 ug/dL (250-450); Transferrin Sat 11 % (15-50)
[2019-03-20 19:34] LABS: Hemoglobin A1C 7.7 % (3.8-5.6)
[2019-03-20 19:43] LABS: Vitamin D 25 Total 22.4 ng/ml (30-100)
[2019-03-20 19:46] LABS: Vitamin B12 668 pg/mL (193-986)
[2019-03-20 20:19] LABS: Abs Immature Grans 0.01 k/cumm (0.0-0.09); Absolute Basophil Count 0.01 k/cumm (0.0-0.2); Absolute Eosinophil Count 0.06 k/cumm (0.0-0.7); Absolute Lymphocyte Count 1.16 k/cumm (1.2-3.4); Basophils % 0.2; Eosinophils % 1.3; HCT 34.4 % (36.0-46.0); HGB 10.2 g/dL (12.0-15.5); Immature Grans % 0.2 %; Mean Corp. HGB Concentration 29.7 g/dL (32.0-36.0); Mean Corpuscular Hemoglobin 22.6 pg (27.0-33.0); Mean Corpuscular Volume 76.3 fL (80-95); Monocytes % 10.8; Neutrophils % 62.5; RBC 4.51 m/cumm (4.00-5.20); RBC Distribution Width 17.7 % (11.7-14.6); White Blood Cell Count 4.64 k/cumm (4.4-10.8)
[2019-03-20 20:36] LABS: Anisocytosis 2+; Diff Comment RBC Morph Reviewed; Hypochromasia 3+; Microcytosis 3+; Ovalocytes 2+; Platelet Count 167 x1000/uL (130-400); Polychromasia Present
== END 2019-03-20 12:44 ==
LOC: NCHCN 12:24
PROVIDERS: PCP Nurse Practitioner; Visit Provider Nurse Practitioner
DX: D64.9 Anemia, unspecified (principal); R73.9 Hyperglycemia, unspecified; R53.83 Other fatigue; E55.9 Vitamin D deficiency, unspecified
CPT/HCPCS: 82306; 82607; 83036; 83540; 83550; 85025

== ENCOUNTER 2019-04-13 10:26 | Outpatient (REF) | payer MEDICARE, MEDICAID, SELFPAY ==
[2019-04-13 19:04] LABS: ALT 36 U/L (14-59); AST 74 U/L (15-37); Albumin 3.4 g/dL (3.4-5.0); Alkaline Phosphatase 103 U/L (46-116); Anion Gap 11.2 mmol/L (3-11); BUN 11 mg/dL (7-18); Bilirubin, Total 0.8 mg/dL (0.2-1.0); CO2 23.8 mmol/L (21.0-32.0); CREATININE 0.61 mg/dL (0.55-1.02); Calcium 8.4 mg/dL (8.5-10.1); Chloride 105 mmol/L (98-107); Glucose 256 mg/dL (74-106); Potassium 4.1 mmol/L (3.5-5.1); Sodium 140 mmol/L (136-145); Total Protein 7.3 g/dL (6.4-8.2)
== END 2019-04-13 10:46 ==
LOC: NCHCN 10:26
PROVIDERS: PCP Nurse Practitioner; Visit Provider Nurse Practitioner
DX: E11.9 Type 2 diabetes mellitus without complications (principal)
CPT/HCPCS: 80053

== ENCOUNTER 2019-08-17 02:33 | Outpatient (CLI) | payer OTHER, SELFPAY ==
[2019-08-17 12:54] LABS: Absolute Basophil Count 0.01 k/cumm (0.0-0.2); Absolute Eosinophil Count 0.06 k/cumm (0.0-0.7); Absolute Lymphocyte Count 1.02 k/cumm (1.2-3.4); Absolute Monocyte Count 0.27 k/cumm (0.11-0.7); Absolute Neutrophil Count 2.55 k/cumm (1.2-6.7); Basophils % 0.3; Eosinophils % 1.5; HCT 30.7 % (36.0-46.0); HGB 9.6 g/dL (12.0-15.5); Lymphocytes % 26.1; Mean Corp. HGB Concentration 31.3 g/dL (32.0-36.0); Mean Corpuscular Hemoglobin 28.2 pg (27.0-33.0); Mean Corpuscular Volume 90.3 fL (80-95); Mean Platelet Volume 11.5 fL (8.0-11.0); Monocytes % 6.9; Neutrophils % 65.2; Platelet Count 131 x1000/uL (130-400); RBC Distribution Width 16.5 % (11.7-14.6); White Blood Cell Count 3.91 k/cumm (4.4-10.8)
[2019-08-17 13:15] LABS: Anisocytosis 1+; Diff Comment RBC Morph Reviewed; Polychromasia Present
== END 2019-08-17 02:53 ==
PROVIDERS: PCP Nurse Practitioner; Visit Provider Surgery
DX: R58 Hemorrhage, not elsewhere classified (principal)
CPT/HCPCS: 36415; 85025

== ENCOUNTER 2019-11-09 10:04 | Outpatient (REF) | payer MEDICARE, MEDICAID, SELFPAY ==
[2019-11-09 18:40] LABS: Iron 42 ug/dL (50-170); Total Iron Binding Capacity 426 ug/dL (250-450); Transferrin Sat 10 % (15-50)
[2019-11-09 18:45] LABS: HCT 37.5 % (36.0-46.0); HGB 10.7 g/dL (11.2-15.7); MCH 23.2 pg (27.0-33.0); MCHC 28.5 % (32.0-36.0); MCV 81.2 fL (80-95); MPV 11.8 fL (8.0-11.0); Platelet Count 129 10^3/uL (130-400); RBC 4.62 10^6/uL (3.93-5.22); RDW 17.9 % (11.7-14.6); RDW-SD 53.1 fL; WBC 4.05 10^3/uL (4.4-10.8)
[2019-11-09 19:07] LABS: Vitamin B12 499 pg/mL (193-986)
[2019-11-09 19:11] LABS: COMMENT (LAB VIEW ONLY) 235.97 mg/dL; Microalb ug/mg Crea 7.8 ug/mg Cr
[2019-11-09 19:39] LABS: Hemoglobin A1C 6.7 % (<5.7)
== END 2019-11-09 10:24 ==
LOC: NCHCN 10:04
PROVIDERS: PCP Nurse Practitioner; Visit Provider Nurse Practitioner
DX: E11.9 Type 2 diabetes mellitus without complications (principal); D50.9 Iron deficiency anemia, unspecified; E55.9 Vitamin D deficiency, unspecified; E53.8 Deficiency of other specified B group vitamins
CPT/HCPCS: 85027; 82043; 82570; 82607; 83036; 83540; 83550

== ENCOUNTER 2020-01-29 14:21 | Outpatient (CLI) | payer MEDICARE, MEDICAID, SELFPAY ==
--- NOTE | 2020-01-29 10:35 | DI.MRI_ITS ---
EXAM: MR LUMBAR SPINE WO CLINICAL HISTORY: CHRONIC LOW BACK PAIN,M54.5. TECHNIQUE: Multiplanar multisequence MRI of the Lumbar spine was performed. COMPARISON: CR LUMBAR SPINE COMPLETE from 08/10/2012 CR LUMBAR SPINE COMPLETE from 08/10/2012 MR MRI - LUMBAR SPINE WO CONTRAST from 01/27/2013 FINDINGS: Conus medullaris is at the T12-L1 level. There is no evidence of conus mass nor subjacent clumping o f intrathecal nerve roots to suggest arachnoiditis. The distal thecal sac appears unremarkable.There is no evidence of Tarlov intrasacral cysts nor other significant findings within the sacral canal Bones:There are no fractures nor ominous osseous lesions in the lumbar vertebral bodies. With respect to the individual levels... T12-L1: Unremarkable L1-2: Normal disc height and signal. No disc herniation nor central canal stenosis.No foraminal steno sis L2-3: Normal disc height. No disc herniation nor central canal stenosis.No foraminal stenosis.No face t arthropathy. L3-4: Normal disc height. No disc herniation or central canal stenosis.No foraminal stenosis.No face t arthropathy. L4-5: Preserved disc height. Mild annular bulging but without a significant disc herniation. Centra l canal dimensions are lower normal. No foraminal stenosis. No significant facet arthropathy on the right side. Mild degenerative changes in the left facet joint L5-S1: Moderate decreased disc height. There is a relatively central small disc protrusion again not ed at this level which remains subligamentous and exhibits minimal if any significant change compared to the prior study. Contacts the anterior aspect of the thecal sac but there is no prominent canal stenosis at this level. Also no significant foraminal stenosis evident. Mild degenerative changes i n both facet joints. Soft tissues: The visualized SI joints and sacrum appear unremarkable. Paraspinal soft tissues appear unremarkable IMPRESSION: 1. Size of the small disc herniation at L5-S1 level appears relatively stable when compared to the pr ior MRI study of January 2013. It slightly indents the thecal sac but there is no significant centr al canal stenosis nor foraminal stenosis at this level. 2. No other significant disc protrusions evident. 3. No significant central nor foraminal canal stenosis. 4. No prominent facet arthropathy. DATA REPOSITORY:
== END 2020-01-29 14:41 ==
PROVIDERS: PCP Nurse Practitioner; Visit Provider Nurse Practitioner
DX: M51.27 Other intervertebral disc displacement, lumbosacral region (principal)
CPT/HCPCS: 72148

== ENCOUNTER 2020-04-08 23:22 | Emergency (ER) | payer MEDICARE, MEDICAID, SELFPAY ==
[2020-04-08 23:28] VITALS: BP 162/66; PULSE 92; RESP 18; TEMP 37.2; O2SAT 94
--- NOTE | 2020-04-08 23:36 | ED.GENADUL_ITS ---
Discharge Plan Disposition Patient Disposition: HOME Condition: Stable Discharge Details Clinical Impression: Stoma bleed Primary Care Provider: Iliana Hutr ED Provider: Martin De Leon Home Meds and New Rx's Prescriptions: Continued cholecalciferol (vitamin D3) [Vitamin D3] 1,000 UNIT capsule 2,000 unit PO DAILY RF: 0 ascorbate calcium (vitamin C) 500 mg tablet 250 mg PO BID RF: 0 ferrous gluconate 256 mg (28 mg iron) tablet 256 mg PO BID RF: 0 metformin 500 mg tablet 500 mg PO BID RF: 0 Shingrix gE Antigen Component 50 mcg suspension for reconstitution IM ONCE RF: 0 albuterol sulfate [ProAir HFA] 90 mcg/actuation HFA aerosol inhaler 2 puff inhalation .Q4-6HR PRNRF: 0 cholecalciferol (vitamin D3) 50 mcg (2,000 unit) tablet 50 mcg PO DAILY RF: 0 acetaminophen [Tylenol] 325 mg tablet 325 mg PO ONCE PRNRF: 0 methylphenidate HCl 20 mg tablet 20 mg PO DIRECTED RF: 0 bupropion HCl 100 mg tablet 100 mg PO BID RF: 0 levalbuterol tartrate [Xopenex HFA] 45 mcg/actuation HFA aerosol inhaler 2 inh inhalation .Q4-6HR RF: 0 mometasone 0.1 % cream 1 applic topical DAILY RF: 0 acetaminophen [Mapap Extra Strength] 500 MG tablet 1 - 2 tab PO PRN PRNRF: 0 methylphenidate HCl [Ritalin] 20 MG tablet 20 mg PO TID RF: 0 Discharge Instructions Additional Instructions: Your blood work did not show any evidence of significant bleeding here. You had no bleeding while observed here. Follow up with your surgeon who cares for your ostomy within 1 week if you have worsening bleeding that is unable to be controlled return to the emergency department Medical Decision Making 54 yo female with hx of ostomy from resection of malignant neoplasm of colon and has had bleeding at the ostomy site before requiring suturing and cauterization comes in after she started to have bleeding that sprayed from the ostomy prior to arrival. Denies dyspnea, fevers, chills, and no abdominal pain. There is no blood right now in the ostomy bag, will obtain another ostomy bag prior to taki ng the ostomy bag down to evaluate for source of bleeding. removed ostomy and she states the bleeding she had was on the inferior surface of the stoma and has no bleeding now even after I wiped the paste away. Will keep it uncovered and monitor for recurrent bleeding labs unremarkable and continues to have no bleeding. I offered to observe her here longer for bleeding recurrence but she declines and wishes to go home and f/u with her surgeon. She understands need to return immediately if she has worsening bleeding that is uncontrolled as she was getting dressed had a small amout of oozing from inerior stoma site that stopped when I entered the room, I applied a small surgicell to the area and had no recurrent bleeding after ostomy reapplied. Differential Diagnosis Differential Diagnosis: ostomy bleeding, arterial bleeding, gi bleed Lab Data Lab results reviewed: Yes I reviewed the patient's lab results. HPI General Mode of arrival: ambulatory . Date/Time Provider Initiated Documentation: 04/08/20 23:22 . Limitations to Documentation: no limitations . Information obtained by: patient . History of Present Illness 54 year old F presents to the emergency department with the chief complaint of blood from ostomy, described as moderate, Patient started experiencing this hour(s) (1) No relieving factors improve symptom(s), No exacerbating factors reported . Patient notes no other symptoms.. Related Data Home Medications Medication Instructions Recorded Confirmed cholecalciferol (vitamin D3) 2,000 unit PO DAILY 06/13/15 04/09/20 [Vitamin D3] acetaminophen [Mapap Extra 1 - 2 tab PO PRN PRN 08/19/15 04/09/20 Strength] methylphenidate HCl [Ritalin] 20 mg PO TID 05/27/17 04/09/20 acetaminophen 325 mg tablet 325 mg PO ONCE PRN 01/22/20 04/09/20 albuterol sulfate 90 mcg/actuation 2 puff INHALATION .Q4-6HR PRN g 01/22/20 04/09/20 aerosol inhaler ascorbate calcium (vitamin C) 500 250 mg PO BID tab 01/22/20 04/09/20 mg tablet bupropion HCl 100 mg tablet 100 mg PO BID 01/22/20 cholecalciferol (vitamin D3) 50 50 mcg PO DAILY 01/22/20 04/09/20 mcg (2,000 unit) tablet ferrous gluconate 256 mg (28 mg 256 mg PO BID tab 01/22/20 04/09/20 iron) tablet levalbuterol tartrate 45 2 inh INHALATION .Q4-6HR g 01/22/20 04/09/20 mcg/actuation aerosol inhaler metformin 500 mg tablet 500 mg PO BID 01/22/20 04/09/20 methylphenidate HCl 20 mg tablet 20 mg PO DIRECTED tab 01/22/20 04/09/20 mometasone 0.1 % topical cream 1 applic TOPICAL DAILY 01/22/20 04/09/20 varicella-zoster gE vac,2 of 2 50 mcg IM ONCE ea 01/22/20 mcg IM suspension Allergies Allergy/AdvReac Type Severity Reaction Status Date / Time codeine AdvReac Unknown unable to Unverified 04/09/20 00:02 take related to colon removal ibuprofen AdvReac Unknown unable to Unverified 04/09/20 00:02 take related to colon removal General Stated Complaint: Abd Prob WILL: 2 Review of Systems All systems reviewed & are unremarkable except as noted in HPI and below Constitutional Constitutional: Denies chills, Denies fever(s) and Denies weakness Cardiovascular Cardiovascular: Denies chest pain and Denies dyspnea Respiratory Respiratory: Denies cough and Denies dyspnea Gastrointestinal Gastrointestinal: Denies abdominal pain, Denies nausea and Denies vomiting Neurologic Neurologic: Denies weakness [facility] Medical History (Updated 04/09/20 @ 00:46 by Martin De Leon MD) Colon cancer PTSD (post-traumatic stress disorder) Stoma bleed Surgical History H/O ileostomy History of endometrial ablation S/P colectomy Social History Smoking/Tobacco Use Status: Never Smoking risk assessment performed?: Yes Alcohol Intake: never Drug use: Never Substance use type: does not use Do you feel safe at home: Yes Do you feel safe in your relationship?: Yes Exam Const General: no acute distress Orientation: alert HENMT Head: normal to inspection Ears: external ears normal General nose exam: external nose normal Mouth: moist mucous membranes Eyes General: appearance normal, both eyes and all related structures Neck Neck: normal visual inspection Resp Effort & Inspection: normal respiratory effort and able to speak in complete sentences Cardio Rate: regular rate GI Palpation: soft and nontender Skin General skin exam: no rashes or lesions noted Neuro General: patient alert and patient oriented x3 Extrem General: normal to inspection Psych Mental Status: mental status grossly normal Course Vital Signs Vital signs: Vital Signs Temperature 37.2 C 04/08/20 23:28 Pulse 92 H 04/08/20 23:28 Respiratory Rate 18 04/08/20 23:28 Blood Pressure 162/66 H 04/08/20 23:28 Pulse Oximetry 94 04/08/20 23:28 Temperature 37.2 C 04/08/20 23:28 Temperature Source Temporal Artery Scan 04/08/20 23:28 Pulse 92 H 04/08/20 23:28 Respiratory Rate 18 04/08/20 23:28 Blood Pressure 162/66 H 04/08/20 23:28 Blood Pressure Position Supine 04/08/20 23:28 Pulse Oximetry 94 04/08/20 23:28 Oxygen Delivery Method Room Air 04/08/20 23:28 Oxygen Flow Rate 0 04/08/20 23:28 Pain Level 0 04/08/20 23:28
[2020-04-08 23:44] LABS: Abs Immature Grans 0.02 10^3/uL (0.0-0.06); Absolute Basophil Count 0.02 10^3/uL (0.0-0.2); Absolute Eosinophil Count 0.17 10^3/uL (0.0-0.7); Absolute Lymphocyte Count 1.36 10^3/uL (1.2-3.4); Absolute Monocyte Count 0.62 10^3/uL (0.1-0.8); Basophils % 0.3; Eosinophils % 2.7; HCT 37.3 % (36.0-46.0); Immature Grans % 0.3; Lymphocytes % 21.6; MCH 28.2 pg (27.0-33.0); MCHC 32.2 % (32.0-36.0); MCV 87.8 fL (80-95); MPV 11.5 fL (8.0-11.0); Monocytes % 9.9; Neutrophils % 65.2; Nucleated RBC 0 %; Platelet Count 107 10^3/uL (130-400); RBC 4.25 10^6/uL (3.93-5.22); RDW 15.9 % (11.7-14.6); RDW-SD 51.3 fL; WBC 6.29 10^3/uL (4.4-10.8)
[2020-04-09 00:02] LABS: ALT 25 U/L (14-59); AST 41 U/L (15-37); Albumin 3.1 g/dL (3.4-5.0); Alkaline Phosphatase 112 U/L (46-116); Anion Gap 11.1 mmol/L (3-11); BUN 13 mg/dL (7-18); Bilirubin, Total 1.2 mg/dL (0.2-1.0); CO2 24.9 mmol/L (21.0-32.0); CREATININE 0.8 mg/dL (0.55-1.02); Calcium 8.3 mg/dL (8.5-10.1); Chloride 102 mmol/L (98-107); Glucose 306 mg/dL (74-106); Magnesium 1.6 mg/dL (1.8-2.4); Potassium 3.6 mmol/L (3.5-5.1); Sodium 138 mmol/L (136-145); Total Protein 7.1 g/dL (6.4-8.2)
[2020-04-09 00:03] LABS: INR 1.2 (0.9-1.1); PTT Activated 24.7 sec (21.0-27.5); Prothrombin Time 11.9 sec (9.3-11.0)
[2020-04-09] MEDS: Normal Saline 500 ML 999 ML IV (00:08)
--- NOTE | 2020-04-09 00:48 | NUR.NOTE ---
Nursing Note: Contact with pt after handoff from Lizet HARRELL. Pt performing own self care and ostomy bag replacement.
--- NOTE | 2020-04-09 00:51 | NUR.NOTE ---
Nursing Note: Pt calls out states,can you have the doctor come in because it's bleeding again.
[2020-04-09 01:18] VITALS: BP 148/82; PULSE 69; RESP 15; O2SAT 96
== END 2020-04-09 01:15 | disposition home or self-care (01) ==
LOC: ER 04-09 01:12
PROVIDERS: Emergency Provider Emergency Medicine; PCP Nurse Practitioner
DX: K94.01 Colostomy hemorrhage (principal); C18.9 Malignant neoplasm of colon, unspecified; Z98.890 Other specified postprocedural states
CPT/HCPCS: 80053; 86850; 86900; 86901; 96360; 99283; 83735; 85025; 85610; 85730

== ENCOUNTER 2020-04-09 22:45 | Emergency (ER) | payer MEDICARE, MEDICAID, SELFPAY ==
[2020-04-09 22:49] VITALS: BP 148/59; PULSE 93; RESP 18; TEMP 36.5; O2SAT 97
--- NOTE | 2020-04-09 23:10 | W.ED.GENAD ---
Discharge Plan Disposition Patient Disposition: HOME Condition: Stable Discharge Details Clinical Impression: Stoma bleed Primary Care Provider: Iliana Hurt ED Provider: Martin De Leon Home Meds and New Rx's Prescriptions: Continued cholecalciferol (vitamin D3) [Vitamin D3] 1,000 UNIT capsule 2,000 unit PO DAILY RF: 0 ascorbate calcium (vitamin C) 500 mg tablet 250 mg PO BID RF: 0 ferrous gluconate 256 mg (28 mg iron) tablet 256 mg PO BID RF: 0 metformin 500 mg tablet 500 mg PO BID RF: 0 Shingrix gE Antigen Component 50 mcg suspension for reconstitution IM ONCE RF: 0 albuterol sulfate [ProAir HFA] 90 mcg/actuation HFA aerosol inhaler 2 puff inhalation .Q4-6HR PRNRF: 0 cholecalciferol (vitamin D3) 50 mcg (2,000 unit) tablet 50 mcg PO DAILY RF: 0 acetaminophen [Tylenol] 325 mg tablet 325 mg PO ONCE PRNRF: 0 methylphenidate HCl 20 mg tablet 20 mg PO DIRECTED RF: 0 bupropion HCl 100 mg tablet 100 mg PO BID RF: 0 levalbuterol tartrate [Xopenex HFA] 45 mcg/actuation HFA aerosol inhaler 2 inh inhalation .Q4-6HR RF: 0 mometasone 0.1 % cream 1 applic topical DAILY RF: 0 acetaminophen [Mapap Extra Strength] 500 MG tablet 1 - 2 tab PO PRN PRNRF: 0 methylphenidate HCl [Ritalin] 20 MG tablet 20 mg PO TID RF: 0 Discharge Instructions Additional Instructions: follow up with Dr. Dyson for your stoma care as needed if you have recurrent bleeding that you are unable to stop return to the emergency department Medical Decision Making 54 yo female with hx of colon cancer s/p resection with ostomy comes in with bleeding from inferior portion of the ostomy site. Was seen yesterday and had no bleeding until she stood up then had oozing which I placed a surgicell gauze on and had no recurrent bleeding. She states again tonight she stood up and had bleeding come from the inferior ostomy site. No pain or distention. Will obtain cbc and has no evidence of bleeding on external ostomy, will obtain supplies to replace ostomy and evaluate the area for source of bleeding Patient did have bleeding at inferior border of the stoma and was oozing did not appear arterial. I offered to cauterize but she declined as this has not worked in the past and she would prefer a surgeon close it with a suture, will consult surgery Dr. Bravo evaluated and placed sutures with control of bleeding, will monitor here for recurrent bleeding until her ride is able to come later this morning pt with no recurrence of bleeding and otherwise feels well, will d/c home Differential Diagnosis Differential Diagnosis: irritation, artieral bleedin, venous bleed HPI General Mode of arrival: EMS. Date/Time Provider Initiated Documentation: 04/09/20 22:58. Limitations to Documentation: no limitations. Information obtained by: patient. History of Present Illness 54 year old F presents to the emergency department with the chief complaint of bleeding from stoma, described as moderate, Patient started experiencing this day(s) (1) and it has been constant. No relieving factors improve symptom(s), No exacerbating factors reported . Related Data Home Medications Medication Instructions Recorded Confirmed cholecalciferol (vitamin D3) 2,000 unit PO DAILY 06/13/15 04/09/20 [Vitamin D3] acetaminophen [Mapap Extra 1 - 2 tab PO PRN PRN 08/19/15 04/09/20 Strength] methylphenidate HCl [Ritalin] 20 mg PO TID 05/27/17 04/09/20 acetaminophen 325 mg tablet 325 mg PO ONCE PRN 01/22/20 04/09/20 albuterol sulfate 90 mcg/actuation 2 puff INHALATION .Q4-6HR PRN g 01/22/20 04/09/20 aerosol inhaler ascorbate calcium (vitamin C) 500 250 mg PO BID tab 01/22/20 04/09/20 mg tablet bupropion HCl 100 mg tablet 100 mg PO BID 01/22/20 cholecalciferol (vitamin D3) 50 50 mcg PO DAILY 01/22/20 04/09/20 mcg (2,000 unit) tablet ferrous gluconate 256 mg (28 mg 256 mg PO BID tab 01/22/20 04/09/20 iron) tablet levalbuterol tartrate 45 2 inh INHALATION .Q4-6HR g 01/22/20 04/09/20 mcg/actuation aerosol inhaler metformin 500 mg tablet 500 mg PO BID 01/22/20 04/09/20 methylphenidate HCl 20 mg tablet 20 mg PO DIRECTED tab 01/22/20 04/09/20 mometasone 0.1 % topical cream 1 applic TOPICAL DAILY 01/22/20 04/09/20 varicella-zoster gE vac,2 of 2 50 mcg IM ONCE ea 01/22/20 mcg IM suspension Allergies Allergy/AdvReac Type Severity Reaction Status Date / Time codeine AdvReac Unknown unable to Unverified 04/09/20 00:02 take related to colon removal ibuprofen AdvReac Unknown unable to Unverified 04/09/20 00:02 take related to colon removal General Stated Complaint: Abd Prob WILL: 3 Review of Systems All systems reviewed & are unremarkable except as noted in HPI and below Constitutional Constitutional: Denies chills, Denies fever(s) and Denies weakness Cardiovascular Cardiovascular: Denies chest pain and Denies dyspnea Respiratory Respiratory: Denies cough and Denies dyspnea Gastrointestinal Gastrointestinal: Denies abdominal pain, Denies nausea and Denies vomiting Musculoskeletal Musculoskeletal: Denies joint swelling Neurologic Neurologic: Denies weakness [facility] Medical History (Updated 04/10/20 @ 01:06 by Martin De Leon MD) Colon cancer PTSD (post-traumatic stress disorder) Stoma bleed Surgical History H/O ileostomy History of endometrial ablation S/P colectomy Social History Smoking/Tobacco Use Status: Never Smoking risk assessment performed?: Yes Alcohol Intake: never Drug use: Never Substance use type: does not use Do you feel safe at home: Yes Do you feel safe in your relationship?: Yes Exam Const General: no acute distress Orientation: alert HENID Head: normal to inspection Ears: external ears normal General nose exam: external nose normal Mouth: moist mucous membranes Eyes General: appearance normal, both eyes and all related structures Neck Neck: normal visual inspection Resp Effort & Inspection: normal respiratory effort and able to speak in complete sentences Cardio Rate: regular rate Skin General skin exam: no rashes or lesions noted Neuro General: patient alert and patient oriented x3 Extrem General: normal to inspection Psych Mental Status: mental status grossly normal Course Vital Signs Vital signs: Vital Signs Temperature 36.5 C 04/09/20 22:49 Pulse 93 H 04/09/20 22:49 Respiratory Rate 18 04/09/20 22:49 Blood Pressure 148/59 H 04/09/20 22:49 Pulse Oximetry 97 04/09/20 22:49 Temperature 36.5 C 04/09/20 22:49 Temperature Source Temporal Artery Scan 04/09/20 22:49 Pulse 93 H 04/09/20 22:49 Respiratory Rate 18 04/09/20 22:49 Respiratory Effort Non-Labored 04/09/20 23:00 Blood Pressure 148/59 H 04/09/20 22:49 Blood Pressure Position Supine 04/09/20 22:49 Pulse Oximetry 97 04/09/20 22:49 Oxygen Delivery Method Room Air 04/09/20 22:49 Oxygen Flow Rate 0 04/09/20 22:49 Pain Level 0 04/09/20 22:49
[2020-04-09 23:12] LABS: Abs Immature Grans 0.02 10^3/uL (0.0-0.06); Absolute Basophil Count 0.02 10^3/uL (0.0-0.2); Absolute Eosinophil Count 0.17 10^3/uL (0.0-0.7); Absolute Monocyte Count 0.39 10^3/uL (0.1-0.8); Absolute Neutrophil Count 2.95 10^3/uL (1.2-6.7); Basophils % 0.4; Eosinophils % 3.6; HCT 34.2 % (36.0-46.0); HGB 10.9 g/dL (11.2-15.7); Immature Grans % 0.4; Lymphocytes % 25.3; MCH 28.2 pg (27.0-33.0); MCHC 31.9 % (32.0-36.0); MCV 88.6 fL (80-95); Monocytes % 8.2; Neutrophils % 62.1; Nucleated RBC 0 %; Platelet Count 101 10^3/uL (130-400); RBC 3.86 10^6/uL (3.93-5.22); RDW 15.9 % (11.7-14.6); WBC 4.75 10^3/uL (4.4-10.8)
[2020-04-10] MEDS: Lidocaine/Epinephri/Tetracaine Topical Gel 3 ML TP (00:23)
[2020-04-10 02:48] VITALS: BP 148/59; PULSE 93; RESP 18; TEMP 36.5; O2SAT 97
--- NOTE | 2020-04-10 06:22 | NUR.NOTE ---
Nursing Note: Pt seen by Dr De Leon after standing again to assess for bleeding. None noted. Pt comfortable with original plan to DC to home.
--- NOTE | 2020-04-14 20:54 | W.SURGCON ---
Date of service: 04/09/20 Time of Service: 23:45 Assessment and Plan Assessment and plan (1) Crohn's disease in remission: Status: Acute (2) Stoma bleed: Status: Acute Assessment and plan: Patient would like a stitch placed at the site of bleeding. She refused to have it cauterized. The area is prepped and draped in usual sterile fashion using a Betadine scrub solution. The area of the vein at the 6 o'clock position is infiltrated with 10 cc of 1% lidocaine plain. There is a dilated vein and the 6 o'clock position. This is most likely the source of bleeding. 2 stitches of 4-0 Vicryl are placed through this to tie off the vein. Patient tolerated procedure well without complications. Appliance was replaced. 60 minutes is spent doing the consult and doing the procedure reviewing her chart and reviewing her labs including CBC and doing the required documentation. Patient will follow up with her regular surgeon Dr. Segundo Dyson (3) ADHD: Status: Acute History of Present Illness Narrative: Pt has had a detention stoma for CRC/crohn's. She comes in to the ED tonight w/ bleeding from the stoma. The whole stoma is very friable. There is no hypergranulation around the edge. There are no skin excoriations. There is no active bleeding as I am seeing it. The patient is well-known to me. Is in the ER on 215. The same problem. The ER physician cauterized it. Her hemoglobin at that time was 12. Hemoglobin tonight is 10.8. However reviewing the chart that is her normal hemoglobin appears to be. And I think the 12 he was in the room he is reading. Her whole stoma is very friable. There is no bleeding visualized while I look at her stoma. At the 6 o'clock position there is a small engorged vein almost looks like it is varicosed. This certainly could be a site of bleeding. She has had biopsies of her stoma to see if there is any recurrence of Crohn's in this area. This is a longstanding stoma. The tissue immediately surrounding the stoma is quite thickened and tough. Consults Consult date: 04/09/20 Review of Systems All systems reviewed & are unremarkable except as noted in HPI and below [facility] Medical History (Updated 04/14/20 @ 20:59 by Lexus Bravo DO) Colon cancer PTSD (post-traumatic stress disorder) Stoma bleed Surgical History H/O ileostomy History of endometrial ablation S/P colectomy Social History Smoking/Tobacco Use Status: Never Smoking risk assessment performed?: Yes Alcohol Intake: never Drug use: Never Substance use type: does not use Do you feel safe at home: Yes Do you feel safe in your relationship?: Yes Exam HENMT Other: No jaundice. No pupillary dilation. She is ANO x3 in no distress. Resp Effort & Inspection: normal respiratory effort and able to speak in complete sentences Auscultation: clear to auscultation bilaterally Cardio Rate: regular rate Rhythm: regular rhythm Other: Abdomen is soft and nontender. Postsurgical changes noted. No hernias. Her stoma is pink patent and productive. It is in the right lower quadrant. Technically it is an ileostomy. It has been there for some time. The stoma itself is quite friable and read bleeds readily. However there is absolutely no bleeding noted at the time of visualization. See HPI. I do not know if the stoma has been biopsied for any recurrent problems. Results Last Vital Signs Temp 36.5 C 04/10/20 02:48 Pulse 93 H 04/10/20 02:48 Resp 18 04/10/20 02:48 BP 148/59 H 04/10/20 02:48 Pulse Ox 97 04/10/20 02:48 Labs Result diagrams: 04/09/20 23:05
== END 2020-04-10 06:25 | disposition home or self-care (01) ==
LOC: ER 04-10 06:52
PROVIDERS: Emergency Provider Emergency Medicine; PCP Nurse Practitioner
DX: K94.01 Colostomy hemorrhage (principal); C18.9 Malignant neoplasm of colon, unspecified
CPT/HCPCS: 86850; 86900; 86901; 96360; 99283; 85025

== ENCOUNTER → 2020-04-15 07:57 | Outpatient (BNVA) | payer MEDICARE, MEDICAID, SELFPAY | PROVIDERS: PCP Nurse Practitioner; Referring Provider Nurse Practitioner; Visit Provider Psychiatry & Neurology Neurology | DX: M54.5 Low back pain (principal); G89.29 Other chronic pain | CPT/HCPCS: 95885; 95908; 99215 ==

== ENCOUNTER 2020-04-19 03:06 | Outpatient (CLI) | payer MEDICARE, MEDICAID, SELFPAY ==
--- NOTE | 2020-04-19 15:52 | DI.MAMMO_ITS ---
EXAM: MAMMO SCREENING CLINICAL HISTORY: SCREENING, Z12.39 TECHNIQUE: Mammograms were interpreted according to the usual protocol including computer analysis w [employer] CAD system, tomosynthesis and C-view imaging. COMPARISON: 2011 through 2018 FINDINGS: The breasts are composed of mainly fatty density , Breast Density category A. No suspicious masses or suspicious microcalcifications are seen. No skin thickening or abnormal axillary lymph nodes are seen. There has been no significant change from prior exams. IMPRESSION: BI-RADS Category 1, Negative mammogram Yearly screening mammography is recommended. Breast Density - Category A, fatty density. A negative radiographic report should not delay biopsy if a dominant or clinically suspicious mass is present. Up to ten percent of cancers are not identified on mammography. A negative report may reinforce clinical impression. Adenosis and dense breasts may obscure an underlying neoplasm. False positive reports average 6 to 10%. Patient will receive a letter notifying them of these results.
== END 2020-04-19 03:07 ==
LOC: DI 03:06
PROVIDERS: PCP Nurse Practitioner; Visit Provider Nurse Practitioner
DX: Z12.31 Encounter for screening mammogram for malignant neoplasm of breast (principal)
CPT/HCPCS: 77063; 77067

== ENCOUNTER 2020-04-19 12:12 | Outpatient (REF) | payer MEDICARE, MEDICAID, SELFPAY ==
[2020-04-19 15:38] LABS: Iron 33 ug/dL (50-170); Total Iron Binding Capacity 441 ug/dL (250-450); Transferrin Sat 7 % (15-50)
[2020-04-19 15:39] LABS: Hemoglobin A1C 8.3 % (<5.7)
[2020-04-19 15:54] LABS: Calculated LDL 73 mg/dL (<100); Cholesterol 136 mg/dL (<200); Ferritin 14 ng/mL (8-252); Folate 17.3 ng/mL (8.6-20.0); HDL Cholesterol 55 mg/dL (40-60); TSH (W/Ref FT4) 2.15 uIU/mL (0.36-3.74); Triglyceride 44 mg/dL (<150)
[2020-04-19 16:58] LABS: Reticulocyte 2.2 % (0.5-2.4)
[2020-04-19 22:04] LABS: CEA <0.5 ng/mL (See Note)
== END 2020-04-19 12:13 | disposition home or self-care (01) ==
LOC: NCHCN 12:12
PROVIDERS: PCP Nurse Practitioner; Visit Provider Nurse Practitioner
DX: E11.9 Type 2 diabetes mellitus without complications (principal); Z85.038 Personal history of other malignant neoplasm of large intestine
CPT/HCPCS: 80061; 82378; 82728; 82746; 83036; 83540; 83550; 84443; 85045

== ENCOUNTER 2020-05-01 11:48 | Outpatient (REF) | payer MEDICARE, MEDICAID, SELFPAY ==
--- NOTE | 2020-05-01 10:30 | PAPFT_PTH ---
PATIENT: Janice Briones LOC: [facility]#:[id number] AGE/SX: 54/F ROOM: RE05/01/[address]: Iliana Hurt : 1965 BED: DIS: 05/01/2020 SPEC #: [id number] RECD: 05/01/20 17:28 STATUS: WILFRID TORIBIO #: [id number] MARIANO: 05/01/20 10:[address]: Iliana Hurt DEPT: [facility] Cytology RECD BY: Florence Beckwith Tissues: 1 - CX/ENDOCX FOR PAP SMEARS Procedures: PAP THIN PREP/UVM Screening HPV DNA PROBE Comments: [id number]
--- OUTSIDE RECORDS SUMMARY | 2020-05-01 11:55 | XMS_ITS ---
:1965 Author Care Team Providers Name Role Phone DR. ALEX CANSECO Primary Care Provider [phone] DR. ALEX CANSECO Referring Provider [phone] ALEX CANSECO Primary Care Provider [phone] MONY CARRERO Primary Care Provider [phone] MONY CARRERO Referring Provider [phone] Allergies Code Code System Name Reaction Severity Status Onset 2670 RxNorm Codeine ? ? Active ? 5640 RxNorm Ibuprofen ? ? Active ? Notes: No time release medicatio n due to Colon removal Medications Name Status Start Date Stop Date ? ? Aleve 220 mg capsule Completed ? 08/01/2018 Take 2 capsules twice a day by oral route. Bengay Ultra Strength 4 %-30 %-10 % topical cream Active ? Not available Apply 1 g 3 times a day by topical route as directed. cholecalciferol (vitamin D3) 25 mcg (1,000 unit) capsule Complet ed ? 08/01/2018 Take 1 capsule every day by oral route. cholecalciferol (vitamin D3) 50 mcg (2,000 unit) capsule Active ? Not available Take 1 capsule every day by oral route. ferrous sulfate 325 mg (65 mg iron) tablet Active ? Not available Take 1 tablet 3 times a day by oral route. metformin 500 mg tablet Active ? Not avai lable Take 1 tablet every day by oral route. methylphenidate 20 mg tablet Active ? Not available Take 1 tablet 3 times a day by oral route. Tylenol Extra Strength 500 mg tablet Active ? Not available Take 2 tablets every 4 hours by oral route. Wellbutrin SR 100 mg tablet, 12 hr sustained-release Completed ? 08/01/2018 Take 1 tablet twice a day by oral route. Problems Name Status Onset Date Source ? Malignant Tumor of Colon Active 10/08/1999 ? Low Back Pain Active 06/03/2017 ? Posttraumatic Stress Disorder Active ? ? Procedures Date Name Performed by ? 10/08/1999 Colostomy Information not avai lable 10/08/1999 Removal of Colon Information not avai lable 08/23/2019 US, Abdomen, Limited [facility] - Radiology [address] [place] [address] (Work Place) Results Lab Results Date Name Specimen Result Interpretation Description Value Range Status Address ? 08/17/2019 CBC W/ Auto Diff ? No ? ? ? [facility] Vermo nt recorded. [facility] Hospital: [address], [place] 08/29/2018 CBC W/ Auto Diff WB Normal Wbc 4.8 4.8- [place] 10^3/ 10.8 Hospital mm^3 10^3 (Lab): 90 /mm^ [address] ? ? WB Low Rbc 3.74 3.90 Final [facility] 10^6/ -5.0 Hospital mm^3 3 (Lab): 90 10^6 [place] /mm^ [address] ? ? WB Low Hgb 10.7 12.0 Final [facility] g/dL -15. Hospital 5 (Lab): 90 g/dL [facility] ? ? WB Normal Hct 36 % 36-4 Final [facility] 6 % Hospital (Lab): 90 [facility] ? ? WB Normal Mcv 94.9 81.0 Final [facility] fL -99. Hospital 0 fL (Lab): 90 [facility] ? ? WB Low Mch 28.6 33.0 Final [facility] pg -36. Hospital 0 pg (Lab): 90 [facility] ? ? WB Low Mchc 30 33-3 Final [facility] g/dL 6 Hospital g/dL (Lab): 90 [facility] ? ? WB Normal Rdw 14.7 11.6 [facility] 8 % (Lab): 90 [facility] ? ? WB Normal Platelets 165 150- [facility] 400 Hospital mm^3 10^3 (Lab): 90 /mm^ [address] ? ? WB Normal Ne# 3.07 1.20 Final [facility] 10^3/ -6.7 Hospital mm^3 0 (Lab): 90 10^3 [place] /mm^ Road, [address] [place] ? ? WB Low Ly# 1.13 1.20 [place] 10^3/ -3.4 Hospital mm^3 0 (Lab): 90 10^3 [place] /mm^ Road, [address] [place] ? ? WB Normal Mo# 0.49 0.11 [place] 10^3/ -0.7 Hospital mm^3 0 (Lab): 90 10^3 [place] /mm^ Road, [address] [place] ? ? WB Normal Eo# 0.07 0.00 [facility] [place] 10^3/ -0.7 Hospital mm^3 0 (Lab): 90 10^3 [place] /mm^ Road, [address] [place] ? ? WB Normal Ba# 0.02 0.00 [place] 10^3/ -0.2 Hospital mm^3 0 (Lab): 90 10^3 [place] /mm^ [address], [address] [place] ? ? WB Normal Neut% 64 % 40-7 [place] per 4 % Hospital 100 per (Lab): 90 [address] [place] [address], [place] ? ? WB Normal Ly% 24 % 19-4 [place] per 8 % Hospital 100 per (Lab): [address]BC [address] [place] [address], [place] ? ? WB High Mo% 10.3 3.0- [place] % per 10.0 Hospital 100 % (Lab): 90 WBC per [place] [address], WBC [place] ? ? WB Normal Eo% 1.5 % 1.0- [place] per 7.0 Hospital 100 % (Lab): 90 WBC per [place] [address], WBC [place] ? ? WB Normal Ba% 0.4 % 0.0- [place] per 2.0 Hospital 100 % (Lab): 90 WBC per [place] [address], WBC [place] 07/15/2017 Carcinoembryonic ? No ? ? ? [facility], Quant, Serum observation [place] or Plasma recorded. [facility]: [address], [place] Past Encounters 09/07/2019 Manfred Dyson, DO: [address] [place] [address], Ph. 08/17/2019 Manfred Dyson, DO: [address] [place] [address], Ph. 08/14/2019 Manfred Dyson, DO: [address] [place] [address], Ph. 01/24/2019 Manfred Dyson, DO: [address] [place] [address], Ph. 12/05/2018 Manfred Dyson, DO: [address] [place] [address], Ph. Social History Tobacco Smoking Status Never Smoker Vaccine List None recorded. Plan of Care Reminders Provider Appointments None ? ? recorded. Lab None ? ? recorded. Referral None ? ? recorded. Procedures None ? ? recorded. Surgeries None ? ? recorded. Imaging None ? ? recorded. Vitals 09/07/2019 04:20PM General Surgery F/U 20 min Height Weight BMI Blood Pressure 162.56 cm 96.62 kg 36.6 kg/m2 110/68 mm[Hg] 08/17/2019 04:40PM General Surgery F/U 20 min Height Weight BMI Blood Pressure 162.56 cm 96.62 kg 36.6 kg/m2 102/68 mm[Hg] 08/14/2019 01:05PM General Surgery F/U 20 min Height Weight BMI Blood Pressure 162.56 cm 96.62 kg 36.6 kg/m2 126/68 mm[Hg] 01/24/2019 11:45AM General Surgery F/U 20 min Height Weight BMI Blood Pressure 162.56 cm 97.52 kg 36.9 kg/m2 104/62 mm[Hg] 12/05/2018 10:05AM General Surgery F/U 20 min Height Weight BMI Blood Pressure 162.56 cm 94.8 kg 35.9 kg/m2 104/62 mm[Hg] 08/29/2018 10:45AM General Surgery F/U 20 min Height Weight BMI Blood Pressure 162.56 cm 96.62 kg 36.6 kg/m2 100/60 mm[Hg] 08/01/2018 01:45PM General Surgery H&P 40 Height Weight BMI Blood Pressure 162.56 cm 96.62 kg 36.6 kg/m2 114/62 mm[Hg] 07/15/2017 03:30PM FOLLOW UP Height Weight BMI Blood Pressure 162.56 cm 97.07 kg 36.7 kg/m2 118/62 mm[Hg] 06/03/2017 10:30AM INITIAL CONSULT Height Weight BMI Blood Pressure 162.56 cm 96.62 kg 36.6 kg/m2 118/62 mm[Hg]
== END 2020-05-01 11:49 | disposition home or self-care (01) ==
LOC: NCHCN 11:48
PROVIDERS: PCP Nurse Practitioner; Visit Provider Nurse Practitioner
DX: Z12.4 Encounter for screening for malignant neoplasm of cervix (principal); Z11.51 Encounter for screening for human papillomavirus (HPV)
CPT/HCPCS: 88142; 87624

== ENCOUNTER 2020-07-01 03:23 | Outpatient (CLI) | payer MEDICARE, MEDICAID, SELFPAY ==
[2020-07-01 11:24] LABS: Abs Immature Grans 0.01 10^3/uL (0.0-0.06); Absolute Basophil Count 0.02 10^3/uL (0.0-0.2); Absolute Eosinophil Count 0.08 10^3/uL (0.0-0.7); Absolute Lymphocyte Count 1.18 10^3/uL (1.2-3.4); Absolute Monocyte Count 0.41 10^3/uL (0.1-0.8); Absolute Neutrophil Count 2.97 10^3/uL (1.2-6.7); Basophils % 0.4; Eosinophils % 1.7; HCT 41.6 % (36.0-46.0); HGB 13.4 g/dL (11.2-15.7); Immature Grans % 0.2; Lymphocytes % 25.3; MCH 29.5 pg (27.0-33.0); MCHC 32.2 % (32.0-36.0); MCV 91.4 fL (80-95); MPV 11.6 fL (8.0-11.0); Monocytes % 8.8; Neutrophils % 63.6; Nucleated RBC 0 %; Platelet Count 94 10^3/uL (130-400); RBC 4.55 10^6/uL (3.93-5.22); RDW 14.5 % (11.7-14.6); RDW-SD 48.9 fL; WBC 4.67 10^3/uL (4.4-10.8)
[2020-07-01 12:23] LABS: Iron 53 ug/dL (50-170); Total Iron Binding Capacity 384 ug/dL (250-450); Transferrin Sat 14 % (15-50)
[2020-07-01 12:51] LABS: ALT 28 U/L (14-59); AST 34 U/L (15-37); Albumin 3.4 g/dL (3.4-5.0); Alkaline Phosphatase 86 U/L (46-116); Anion Gap 7.9 mmol/L (3-11); BUN 12 mg/dL (7-18); Bilirubin, Total 1.2 mg/dL (0.2-1.0); CO2 27.1 mmol/L (21.0-32.0); CREATININE 0.6 mg/dL (0.55-1.02); Calcium 8.6 mg/dL (8.5-10.1); Chloride 108 mmol/L (98-107); Ferritin 26 ng/mL (8-252); Glucose 119 mg/dL (74-106); Potassium 4.2 mmol/L (3.5-5.1); Sodium 143 mmol/L (136-145); Vitamin B12 562 pg/mL (193-986)
[2020-07-02 09:14] LABS: Alpha 1 Antitrypsin,Serum 155 mg/dL (90-200)
[2020-07-02 09:34] LABS: HBs Antibody, Quant 5.2 mIU/mL (See Note); Hepatitis B Surface Ab Negative (See Note)
[2020-07-02 09:41] LABS: Hepatitis B Surface Ag Negative (Negative)
[2020-07-02 10:37] LABS: Hepatitis C Ab w Rflx HCV PCR Negative (Negative)
[2020-07-02 21:33] LABS: Mitochondrial Ab, M2 <0.1 U
[2020-07-03 13:32] LABS: IgA 557 mg/dL (85-499); Interpretation (See Note); Tissue Transglutaminase IgA 1.2 U/mL (<4.0)
[2020-07-03 14:31] LABS: Smooth Muscle Ab Screen Negative (Negative)
== END 2020-07-01 03:24 | disposition home or self-care (01) ==
LOC: LBO 03:23
PROVIDERS: PCP Nurse Practitioner; Visit Provider Internal Medicine
DX: R16.0 Hepatomegaly, not elsewhere classified (principal); D64.9 Anemia, unspecified; D51.9 Vitamin B12 deficiency anemia, unspecified; E55.9 Vitamin D deficiency, unspecified
CPT/HCPCS: 36415; 80053; 82306; 82784; 83516; 86706; 86803; 87340; 82103; 82607; 82728; 83540; 83550; 85025; 86255

== ENCOUNTER 2020-07-04 01:18 | Outpatient (CLI) | payer MEDICARE, MEDICAID, SELFPAY ==
--- NOTE | 2020-07-04 | DI.CT_ITS ---
Exam(s) CT ABDOMEN PELVIS W EXAM: CT ABDOMEN PELVIS W CLINICAL HISTORY: HEPATOMEGALY,R16.0. TECHNIQUE: Imaging Protocol: Axial computed tomography images with coronal and sagittal reformatted images were created and reviewed CONTRAST MATERIAL: Intravenous: Omnipaque 100cc Oral: Yes COMPARISON: No exams were available for comparison FINDINGS: VISUALIZED LUNG BASES: No nodules nor pleural effusions evident. ABDOMEN: There is no ascites. LIVER: Mildly enlarged and hypodense implying steatosis. In addition, the liver appears slightly mot tled which may indicate an element of cirrhosis. There appears to be recanalization of the umbilical vein which joins the left intrahepatic portal vein. There also appear to be esophageal varices. GALLBLADDER/BILIARY: No obvious gallbladder pathology. CBD is not dilated. PANCREAS: No evidence of pancreatic mass nor dilatation of the pancreatic duct. SPLEEN: The spleen is enlarged. There are no intrasplenic lesions but there is some capsular calcifi cation lateral aspect. Splenic vein diameter is somewhat increased, exhibiting diameter of 9 millime ters. Flow is demonstrated in the splenic and portal veins as well as superior mesenteric vein. ADRENALS: There are no significant adrenal masses. KIDNEYS:No cysts evident. No solid renal masses. No calculi nor hydronephrosis.. ABDOMINAL AORTA: Abdominal aorta is not enlarged. LYMPH NODES:There is no prominent retroperitineal nor paraaortic adenopathy. ABDOMINAL WALL: There is right-sided ileostomy. There has been prior colectomy. GI: There is no evidence of bowel obstruction, free air, nor abscess. PELVIS: GI: Appendix is not present (previous colectomy). LYMPH NODES: No adenopathy around the aortic bifurcation nor along the iliac chains. There is also n o inguinal adenopathy. REPRODUCTIVE: Age-appropriate URINARY BLADDER: No calculi nor obvious masses evident OSSEOUS: No significant osseous lesions. Sacroiliac joints appear unremarkable. Advanced disc space narrowing L5-S1 and vacuum phenomenon within this diminished disc space evident. IMPRESSION: 1. Hepatosplenomegaly and findings consistent with portal venous hypertension, as described above, in cluding esophageal varices. There is no ascites 2. Previous colectomy. Right-sided ileostomy. No bowel obstruction. No free air. No abscess. RADIATION DOSE DELIVERED: 1,185.61mGy.cm Total DLP DATA REPOSITORY: All CT scans at this facility are submitted to the National Radiology Data Registry (NRDR) Dose Index Registry (DIR) with the [employer] (ACR). RADIATION OPTIMIZATION: All CT scans at this facility use at least one of these dose optimization te chniques: automated exposure control; mA and/or kV adjustment per patient size (includes targeted exa ms where dose is matched to clinical indication); or iterative reconstruction.
[2020-07-04] MEDS: Breeza Beverage 473 ML BTL PO ×2 (11:39→11:40)
[2020-07-04] MEDS: Omnipaque 350 MG/ML 50 ML BTL PO (11:40)
[2020-07-04] MEDS: Omnipaque 350 MG/ML 100 ML BTL IJ (13:08)
[2020-07-04] MEDS: Normal Saline - Diluent 50 ML VIAL IV (13:08)
== END 2020-07-04 01:38 ==
PROVIDERS: PCP Nurse Practitioner; Visit Provider Internal Medicine
DX: R16.2 Hepatomegaly with splenomegaly, not elsewhere classified (principal); K76.6 Portal hypertension; Z90.49 Acquired absence of other specified parts of digestive tract; Z93.2 Ileostomy status
CPT/HCPCS: 74177; J3490; Q9967

== ENCOUNTER 2020-08-07 00:56 | Outpatient (CLI) | payer MEDICARE, MEDICAID, SELFPAY ==
--- NOTE | 2020-08-07 10:06 | DI.US_ITS ---
APPROVED REPORT EXAM: Comprehensive 2D, Doppler, and color-flow Echocardiogram Patient Location: Out-Patient Lead Portfolio Manager: Angelina Schwartz RDCS (AE) Indications: Pre op surgical, Cirrhosis of liver Other Information Study Quality: Adequate Conclusion Normal left ventricular wall thickness and chamber size. Estimated ejection fraction is 55 to 60%. Wall motion is normal Normal right ventricular size and systolic function Both atria are normal in size There is no significant valvular disease Wall motion Left Ventricle The left ventricle is normal size. The left ventricular systolic function is normal. The left ventric ular ejection fraction is within the normal range. There is normal left ventricular wall thickness. T here is normal LV segmental wall motion. There is no ventricular septal defect visualized. LVEF is 57 %. Right Ventricle The right ventricle is normal size. The right ventricular systolic function is normal. The RVSP is 22 .8 mmHg. Atria The left atrium size is normal. The right atrium size is normal. The interatrial septum is intact wit h no evidence for an atrial septal defect. Aortic Valve The aortic valve is normal in structure. Aortic valve is trileaflet. There is no aortic valvular sten osis. No aortic regurgitation is present. Mitral Valve The mitral valve is normal in structure. No evidence of mitral valve stenosis. Trace mitral regurgita tion. Tricuspid Valve The tricuspid valve is normal in structure. There is no tricuspid valve stenosis. Trace tricuspid reg urgitation. Pulmonic Valve The pulmonary valve is normal in structure. There is no pulmonic valvular stenosis. Trace pulmonic re gurgitation. Great Vessels The aortic root is normal in size. The ascending aorta is normal in size. Aortic arch is normal in ca liber. The IVC collapses <50% with inspiration. Pericardium There is no pericardial effusion. 2D Dimensions IVSD d PLAX 0.86 cm F: 0.6-1.0 LV Vol A2C d MOD 110.2 mL LVPW d PLAX 0.88 cm F: 0.6 - 1.0 LV Vol A4C d MOD 115.5 mL LVID d PLAX 5.30 cm F: 3.8 - 5.2 LA vol/ BSA A2C s A-L 22.6 mL/m2 LVDs 3.65 cm F: 2.2 - 3.5 LA vol/ BSA A4C s A-L 26.1 mL/m2 Ao Root d 2.68 cm F: 2.7 - 3.3 LA Vol/ BSA Biplane s A-L 25.3 mL/m2 RA Area A4C 15.58 cm2 LA Area A4C s MOD 19.13 cm2 RA Vol/ BSA A4C s A-L 19.5 mL/m2 LA Area A2C s MOD 17.06 cm2 Ao Asc Diam d 2.75 cm F: 2.3 - 3.1 LV EF A4C MOD 56.6 % LV EF Teichholz 57.2 % LV EF A2C MOD 57.3 % LVEF (Driscoll's) 54.95 % F: 54 - 74 LV EF Biplane MOD 55.0 % LV Volume 84.30 mL F: 46 - 106 SV 62.22 mL LV Volume Index 41.32 mL/m2 F: 29 - 61 SV Index 30.44 mL/m2 LV Vol Biplane MOD 113.2 mL FS 30.25 % M-Mode TAPSE 2.63 cm (M/F) >1.7 LV Diastology MV E' medial 0.095 (>0.07 m/s) E/A Ratio 1.1 LV E/e MED 8.40 (<14) MV E Vmax 0.79 (0.4-1.3 m/s) MV E' lateral 0.142 (>0.1 m/s) MV A Vmax 0.70 (0.4-1.3 m/s) LV E/e LAT 5.60 (<14) MV E/A Ratio 1.13 MV E/E' medial 8.41 MV E/E' lateral 5.60 Aortic Valve LVOT Area 3.46 cm2 AoV Area Vmax 2.65 cm2 LVOT Vmax 1.25 m/s AoV Area/ BSA (Vmax) 1.29 cm2/m2 LVOT Mean Jimbo. 0.79 m/s PAUL Mean Jimbo. 2.58 cm2 LVOT Peak Grad 6.3 mmHg PAUL Mean Jimbo. Index 1.26 cm2/m2 LVOT Mean Grad 3.0 mmHg LVOT VTI 0.246 m LVOT Diam s 2.05 cm AoV Vmax 1.64 m/s Velocity Ratio 0.76 AoV Mean Jimbo. 1.06 m/s AoV Peak Grad 10.7 mmHg LVOT SV 85.06 mL AoV Mean Grad 5.1 mmHg AoV VTI 0.326 m AoV Area VTI 2.61 cm2 AoV Area/ BSA (VTI) 1.28 cm/m2 Mitral Valve MV DT 197 (160-240 msec) MV PHT 57 msec MV Area PHT 3.85 cm2 MV VTI 0.418 m MV VTI Annulus 0.417 m MV Area VTI 2.03 (4.0-6.0 cm2) Pulmonary Valve PV Vmax 1.05 (0.5-1.5 m/s) RVOT Peak Gr. 2.84 mmHg PV Peak Grad 4.4 mmHg RVOT Mean Gr. 1.40 mmHg PV Mean Grad 2.4 mmHg RVOT VTI 0.208 m PV VTI 0.242 m RVOT Vmax 0.84 m/s Tricuspid Valve TR Peak Grad 14.8 mmHg TR Vmax 1.93 m/s RA Pressure 8.00 mmHg RVSP (TR) 22.8 mmHg
== END 2020-08-07 01:16 ==
PROVIDERS: PCP Nurse Practitioner; Visit Provider Internal Medicine
DX: Z01.810 Encounter for preprocedural cardiovascular examination (principal); K74.60 Unspecified cirrhosis of liver
CPT/HCPCS: 93306

== ENCOUNTER 2020-08-14 03:05 | Outpatient (CLI) | payer MEDICARE, MEDICAID, SELFPAY ==
--- NOTE | 2020-08-14 12:22 | W.NUTCONSULT ---
Date of service: 08/14/20 Time of Service: 10:00 Nutritional Consult ASSESSMENT: ASSESSMENT: Janice presents with referral for DM edu and weight loss concerns r/t NAFLD.. Hx Colon CA and Crohn's with removal of colon.Has surg scheduled for chronic bleeding around stoma. Noted: On Fe, Vit C, and D3 to cover micronutrient needs and help w/ hx anemia. On metformin 1000mg BID.. Patient reports FBG of 115 mg/dl this am and random fingerstick at this encounter revealed 126Mg/dl indicating DM. She stated that she does not eat breakfast and avoids leafy greens due to gastic dumping. Currently 212lbs at this encounter, she is 170% IBW. Documentation reveals A1c 8.3% (04/19/20) and patient states it is now 6.5% per last visit to provider. NUTRITIONAL DIAGNOSIS: Obesity r/t Food Choices and caloric intake AEB: 170% IBW INTERVENTION: INTERVENTION: Provided review and literature with food choices and sample menus to help with Crohn's/IBS along with portion sizes. Reviewed CHO counting techniques and recommended <45g/CHO/meal period to help with weight loss and BG levels. Explained 7% weight loss can result in lower A1c and provided demo and instructions on using Carbs and cals phone arsh to help with CHO counting. Reviewed hydration and encouraged continued omission of sodas in the diet. Due to multiple comorbidities we made the focus on fresh, whole food choices, water as a beverage and counting CHO's with goal of 7% weight loss within 30 days. MONITORING AND EVALUATION: MONITOR/EVAL: Janice has agreed to a F/U appointment in 30 days to track progress, She also agrees that she will use the phone arsh to help with CHO Tracking. She has contact info for this RD to set up F/U appointment and stated that her son will help her download Carbs and cals arsh to her tablet at home. Time Spent in Nutritional Counseling and Treatment: 2 units/ 30 minutes
== END 2020-08-14 03:06 | disposition home or self-care (01) ==
LOC: DS 03:05
PROVIDERS: PCP Nurse Practitioner; Visit Provider Dietitian, Registered
DX: E11.9 Type 2 diabetes mellitus without complications (principal); Z79.84 Long term (current) use of oral hypoglycemic drugs; E66.8 Other obesity; Z71.3 Dietary counseling and surveillance
CPT/HCPCS: 97802

== ENCOUNTER 2020-10-11 13:19 | Outpatient (REF) | payer MEDICARE, MEDICAID, SELFPAY ==
--- OUTSIDE RECORDS SUMMARY | 2020-10-11 13:23 | XMS_ITS | Encounter Summary ---
:1965 Author Care Team Providers Name Role Phone Dr. Iliana Hurt Primary Care Provider [phone] Iliana Hurt Primary Care Provider [phone] Yenifer Salcedo Primary Care Provider [phone] Dr. Iliana Hurt Referring Provider [phone] Yenifer Salcedo Referring Provider [phone] Reason for Visit f/u echo and labs [facility] Assessment and Plan 1. Cirrhosis of liver Reviewed that her imaging and lab work are consistent with cirrhosis secondary to DAMON. Recommend diet and exercise for weight loss with a goal weight loss of 10% total body weight which has b een shown to improve portal hypertension in patients with cirrhosis. Will arrange visit with GI reel stripper at [facility] to help with diet for DAMON cirrhosis, weight loss, and her end ileostomy. Her ECHO was normal. Discussed TIPS proc formerly [facility]. Will move forward with scheduling TIPS at [facility]. Reviewed on going cirrhosis management w ith ultrasound, CBC, CMP, INR, and AFP every 6 months. Next due in 12/2020. Reviewed that her blood work was negativ e for Hep B, Hep C, hemochromatosis, celiac, A1AT, AIH, and PBC. Reviewed that based on risk factors DAMON is the most likely underlying cause of her cirrhosis. 43 minutes was spent in face to face enc ounter. Approximately 6 minutes was spent in review of records and documentation. Approximate total encounter time today was 49 minutes. ? US, abdomen, limited - cir rhosis, HCC screening ? CBC w/ auto diff ? CMP, serum or plasma ? PT/INR ? afp (alpha-fetoprotein) tu mor marker, serum or plasma Discussion Note: None recorded.Patient educational handouts: No information available. Plan of Care Reminders Provider Appointments None ? ? recorded. Lab CBC W/ Auto [facility] CMP, Serum Jodi henderson [place] or Plasma 12/23/2020 [facility] ? PT/INR Harpreet perry [place] 12/23/2020 [facility] ? Afp Linda quigley [place] (Alpha-fetoprotein) 12/23/2020 [facility] Tumor Marker, Serum or Plasma Referral None ? ? recorded. Procedures None ? ? recorded. Surgeries None ? ? recorded. Imaging US, [facility] Xray Abdomen, Limited 12/23/2020 Medications Name Start Date ? ? Bengay Ultra Strength 4 %-30 %-10 % topical cream ? Apply 1 g 3 times a day by topical route as directed. cholecalciferol (vitamin D3) 50 mcg (2,000 unit) capsu le ? Take 1 capsule every day by oral route. ferrous sulfate 325 mg (65 mg iron) tablet ? Take 1 tablet 3 times a day by oral route. metformin 500 mg tablet ? Take 2 tablets twice a day by oral route. methylphenidate 20 mg tablet ? Take 1 tablet 3 times a day by oral route. Tylenol Extra Strength 500 mg tablet ? Take 2 tablets every 4 hours by oral route. Medications Administered None recorded. Vitals Height Weight BMI Blood Pressure 5 ft 4 in 216 lbs 37.1 kg/m2 108/60 mm[Hg] Results Lab Results None recorded. Allergies Code Code System Name Reaction Severity Onset 2670 RxNorm Codeine ? ? ? 5640 RxNorm Ibuprofen ? ? ? Notes: No time release medicatio n due to Colon removal Problems Name Status Onset Date Source ? Malignant Tumor of Colon Active 10/08/1999 ? Low Back Pain Active 06/03/2017 ? Posttraumatic Stress Disorder Active ? ? Procedures Date Name Performed by ? 10/08/1999 Colostomy Information not avai lable 10/08/1999 Removal of Colon Information not avai lable Vaccine List None recorded. Social History Tobacco Smoking Status Never Smoker Has tobacco cessation counseling been provided? N Are you able to care for yourself? Y Are you currently waiting on results of a COVID-19 test? N Tobacco - Do you use chewing tobacco? N Are you isolating or quarantining because you may have been N exposed to a person with COVID-19 or are worried that you ma y be sick with COVID-19? What was the date of your most recent tobacco screening? Do you have an advanced directive? N Tobacco - Do you smoke? N Do you use any illicit or recreational drugs? N Tobacco - Are you around people that smoke? N What is your level of alcohol consumption? None Have you travelled outside of [place] in the past 14 day s? N Have you experienced any of the following symptoms in the [facility] N 48 hours? Fever/Chills, Cough, Shortness of breath or difficulty breathing, fatigue, muscle or body aches, headach e, new loss of taste or smell, sore throat, congestion or runny nose, nausea or vomiting and/or diarrhea Which illicit or recreational drugs have you used? none Within the past 14 days, have you been in close physical N contact (6 feet or closer for a cumulative total of 15 minutes) with anyone that is known to have laboratory-confirmed COVID-19? OR Anyone who has any symptoms consistent with COVID-19? Do you or have you ever used any other forms of tobacco or N nicotine? Alcohol - Daily intake: None Family History Relation Problem Onset Age of Age Notes Mother Myocardial (No 49 (No Notes) infarction Information) Maternal Grandmother Malignant tumor of (No 60 ( No Notes) breast Information) Father Malignant neoplasm (No 80 (No Notes ) of skin Information) Paternal Aunt Malignant tumor of (No N/A (No Note s) colon Information) Functional Status Unknown. Past Encounters 08/13/2020 Cirrhosis of Liver Juani Hi MD: [address] [place] [phone], Ph. History of Present Illness Note: She is here today to review her new diagnosis of cirrhosis, ECHO results, and discuss TIPS for management of peristomal varices. She has been working on weight loss, but notes it is hard to find ananda that works for weight loss and her ostomy. She has not further bleeding episodes from her stoma. She notes that she has been avoiding lifting or exercise due to worries that her stoma will bleed again.Review of Systems: ROS as noted in the HPI Review of Systems None recorded. Physical Exam ? Notes: Gen: appears stated age, NAD
--- OUTSIDE RECORDS SUMMARY | 2020-10-11 13:23 | XMS_ITS ---
:1965 Author Care Team Providers Name Role Phone DR. ALEX CANSECO Primary Care Provider [phone] DR. ALEX CANSECO Referring Provider [phone] ALEX CANSECO Primary Care Provider [phone] MONY CARRERO Primary Care Provider [phone] MONY CARRERO Referring Provider [phone] Allergies Code Code System Name Reaction Severity [...] tablet Active ? Not avai lable Take 2 tablets twice a day by [...] not avai lable 08/23/2019 US, Abdomen, Limited [facility] - Radiology [address] [place] [address] (Work Place) 06/27/2020 CT, Abdomen, W/ Contrast Xray [facility] [address] [place], [place] [address] (Work Place) 07/01/2020 CT, Abdomen + Pelvis, W/ Contrast Xray [facility] [address] [place], [place] [address] (Work Place) Results Lab Results Date Name Specimen Result Interpretation Description Value Range Status Address ? 07/01/2020 CBC W/ Auto Diff ? No ? ? ? observation recorded. 08/17/2019 CBC W/ Auto Diff ? No ? ? ? [facility] nt recorded. [facility]: [address] [facility] [address], [place] 08/29/2018 CBC W/ Auto Diff WB Normal Wbc 4.8 4.8- Fin al [facility] 10^3/ 10.8 Hospital mm^3 10^3 (Lab): 90 /mm^ [place] [address] [facility] ? ? WB Low Rbc 3.74 3.90 Final [facility] 10^6/ -5.0 Hospital mm^3 3 (Lab): 90 10^6 [facility]^ [address] ? ? WB Low Hgb 10.7 12.0 Final [facility] g/dL -15. Hospital 5 (Lab): 90 g/dL [facility] ? ? WB Normal Hct 36 % 36-4 Final [facility] 6 % Hospital (Lab): 90 [facility] ? ? WB Normal Mcv 94.9 81.0 Final [facility] fL -99. Hospital 0 fL (Lab): 90 [facility] ? ? WB Low Mch 28.6 33.0 Final [facility] pg -36. Hospital 0 pg (Lab): [address] [place] [address] ? ? WB Low Mchc 30 33-3 Final [facility] g/dL 6 Hospital g/dL (Lab): 90 [facility], [place] ? ? WB Normal Rdw 14.7 11.6 [facility] [place] % -14. Hospital 8 % (Lab): [address], [place] ? ? WB Normal Platelets 165 150- [facility] [place] e 10^3/ 400 Hospital mm^3 10^3 (Lab): 90 /mm^ [address], [place] ? ? WB Normal Ne# 3.07 1.20 [facility] 10^3/ -6.7 Hospital mm^3 0 (Lab): 90 10^3 [place] /mm^ [address], [address] [place] ? ? WB Low Ly# 1.13 1.20 [facility] 10^3/ -3.4 Hospital mm^3 0 (Lab): 90 10^3 [place] /mm^ [address], [address] [place] ? ? WB Normal Mo# 0.49 0.11 [facility] [place] 10^3/ -0.7 Hospital mm^3 0 (Lab): 90 10^3 [place] /mm[address], [address] [place] ? ? WB Normal Eo# 0.07 0.00 [facility] [place] 10^3/ -0.7 Hospital mm^3 0 (Lab): 90 10^3 [place] /mm[address], [address] [place] ? ? WB Normal Ba# 0.02 0.00 [facility] [place] 10^3/ -0.2 Hospital mm^3 0 (Lab): 90 10^3 [place] [address], [address] [place] ? ? WB Normal Neut% 64 % 40-7 [facility] [place] per 4 % Hospital 100 per (Lab): 90 [address], [place] ? ? WB Normal Ly% 24 % 19-4 [facility] [place] per 8 % Hospital 100 per (Lab): [address], [place] ? ? WB High Mo% 10.3 3.0- [facility] [place] % per 10.0 Hospital 100 % (Lab): 90 WBC per [address], WBC [place] ? ? WB Normal Eo% 1.5 % 1.0- [facility] [place] per 7.0 Hospital 100 % (Lab): 90 WBC per [address], WBC [place] ? ? WB Normal Ba% 0.4 % 0.0- [facility] [place] per 2.0 Hospital 100 % (Lab): 90 WBC per [place] [address], WBC [place] 07/15/2017 Carcinoembryonic ? No ? ? ? [facility], Quant, Serum observation [place] or Plasma recorded. [facility]: [address], [place] Past Encounters 08/13/2020 Cirrhosis of Liver Juani Hi MD: [address] [place] [address], Ph. 06/27/2020 Large Liver; Gastrointestinal Hemorrhage Juani Hi MD: [address] [place] [address], Ph. 05/09/2020 Manfred Dyson, DO: [address] [place] [address], Ph. 09/07/2019 Manfred Dyson, DO: [address] [place] [address], Ph. 08/17/2019 Manfred Dyson, DO: [address] [place] [address], Ph. 08/14/2019 Manfred Dyson, DO: [address] [place] [address], Ph. Social History Tobacco Smoking Status Never Smoker Vaccine List None recorded. Plan of Care Reminders Provider Appointments None ? ? recorded. Lab None ? ? recorded. Referral None ? ? recorded. Procedures None ? ? recorded. Surgeries None ? ? recorded. Imaging None ? ? recorded. Vitals 08/13/2020 01:00PM GASTROENTEROLOGY FOLLOW UP Height Weight BMI Blood Pressure 162.56 cm 97.98 kg 37.1 kg/m2 108/60 mm[Hg] 06/27/2020 01:00PM GASTROENTEROLOGY NEW PATIENT Height Weight BMI Blood Pressure 162.56 cm 97.98 kg 37.1 kg/m2 124/62 mm[Hg] 05/09/2020 02:00PM General Surgery F/U 20 min Height 162.56 cm 09/07/2019 04:20PM General Surgery F/U 20 min [...]
[2020-10-11 14:55] LABS: Abs Immature Grans 0.11 10^3/uL (0.0-0.06); Absolute Basophil Count 0.04 10^3/uL (0.0-0.2); Absolute Eosinophil Count 0.13 10^3/uL (0.0-0.7); Absolute Lymphocyte Count 1.51 10^3/uL (1.2-3.4); Absolute Neutrophil Count 5.43 10^3/uL (1.2-6.7); Basophils % 0.5; Eosinophils % 1.6; HCT 42.6 % (36.0-46.0); Immature Grans % 1.3; Lymphocytes % 18.4; MCH 31.5 pg (27.0-33.0); MCHC 32.9 % (32.0-36.0); MCV 95.9 fL (80-95); MPV 11.6 fL (8.0-11.0); Monocytes % 12.2; Nucleated RBC 0 %; Platelet Count 107 10^3/uL (130-400); RBC 4.44 10^6/uL (3.93-5.22); RDW 14.7 % (11.7-14.6); RDW-SD 51.6 fL; WBC 8.22 10^3/uL (4.4-10.8)
== END 2020-10-11 13:20 | disposition home or self-care (01) ==
LOC: NCHCN 13:19
PROVIDERS: PCP Nurse Practitioner; Visit Provider Nurse Practitioner
DX: R79.1 Abnormal coagulation profile (principal); D69.6 Thrombocytopenia, unspecified
CPT/HCPCS: 85025

== ENCOUNTER 2020-11-30 11:36 | Outpatient (REF) | payer MEDICARE, MEDICAID, SELFPAY | END 2020-11-30 11:37 | disposition home or self-care (01) | LOC: LBN 11:36 | PROVIDERS: PCP Nurse Practitioner; Visit Provider Family Medicine | DX: N39.0 Urinary tract infection, site not specified (principal) | CPT/HCPCS: 87086 ==

== ENCOUNTER 2021-01-07 08:31 | Outpatient (CLI) | payer MEDICARE, MEDICAID, SELFPAY ==
--- NOTE | 2021-01-07 | DI.US_ITS ---
Exam(s) US ABDOMEN LIMITED EXAM: US ABDOMEN LIMITED CLINICAL HISTORY: F/U CIRRHOSIS OF LIVER, K74.60,S/P TIPS, EVALUATE FLOW IN TIPS TECHNIQUE: Ultrasound abdomen performed using standard protocol. COMPARISON: CT CT ABDOMEN PELVIS W from 07/04/2020 FINDINGS: LIVER: Normal size, 13.8 cm in length. Markedly increased echogenicity and coarsened echotexture. M ild surface nodularity, consistent with cirrhosis. No focal liver lesions are seen.. Blood flow is demonstrated in the TIPS as well as portal vein. GALLBLADDER: No evidence of cholelithiasis. No evidence of wall thickening. No pericholecystic fluid identified. GUERRA'S SIGN: Negative. BILIARY SYSTEM: No intrahepatic or extrahepatic biliary ductal dilation. RIGHT KIDNEY: Normal size. No evidence of renal calculi. No evidence of hydronephrosis. No suspicious renal mass. No cyst identified. PANCREAS: Normal where visualized. ABDOMINAL AORTA AND IVC: Visualized portions normal caliber. ASCITES: None seen. IMPRESSION: Cirrhotic liver. TIPS patent. DATA REPOSITORY:
== END 2021-01-07 08:51 ==
PROVIDERS: PCP Nurse Practitioner; Visit Provider Internal Medicine
DX: K74.69 Other cirrhosis of liver (principal); Z96.89 Presence of other specified functional implants
CPT/HCPCS: 76705

== ENCOUNTER 2021-01-09 02:18 | Outpatient (CLI) | payer MEDICARE, MEDICAID, SELFPAY ==
[2021-01-09 09:07] LABS: Abs Immature Grans 0.02 10^3/uL (0.0-0.06); Absolute Basophil Count 0.03 10^3/uL (0.0-0.2); Absolute Lymphocyte Count 0.78 10^3/uL (1.2-3.4); Absolute Monocyte Count 0.46 10^3/uL (0.1-0.8); Absolute Neutrophil Count 3.21 10^3/uL (1.2-6.7); Basophils % 0.7; Eosinophils % 2.2; HCT 40.3 % (36.0-46.0); HGB 13.6 g/dL (11.2-15.7); Immature Grans % 0.4; MCH 33.7 pg (27.0-33.0); MCHC 33.7 % (32.0-36.0); MPV 10.5 fL (8.0-11.0); Neutrophils % 69.7; Nucleated RBC 0 %; Platelet Count 101 10^3/uL (130-400); RBC 4.03 10^6/uL (3.93-5.22); RDW 14.1 % (11.7-14.6); RDW-SD 52.4 fL
[2021-01-09 10:47] LABS: Iron 236 ug/dL (50-170); Total Iron Binding Capacity 253 ug/dL (250-450)
[2021-01-09 11:13] LABS: Vitamin D 25 Total 33.2 ng/mL (30-100)
[2021-01-09 11:15] LABS: ALT 26 U/L (14-59); AST 49 U/L (15-37); Albumin 3.1 g/dL (3.4-5.0); Alkaline Phosphatase 112 U/L (46-116); Anion Gap 9.8 mmol/L (3-11); BUN 13 mg/dL (7-18); Bilirubin, Total 4.4 mg/dL (0.2-1.0); CO2 25.2 mmol/L (21.0-32.0); CREATININE 0.6 mg/dL (0.55-1.02); Calcium 8.2 mg/dL (8.5-10.1); Chloride 107 mmol/L (98-107); Ferritin 140 ng/mL (8-252); Glucose 128 mg/dL (74-106); Potassium 3.8 mmol/L (3.5-5.1); Sodium 142 mmol/L (136-145); Total Protein 6.4 g/dL (6.4-8.2); Vitamin B12 582 pg/mL (193-986)
[2021-01-10 09:13] LABS: HBs Antibody, Quant >1000.0 mIU/mL (See Note); Hepatitis B Surface Ab Positive (See Note)
[2021-01-10 09:26] LABS: Hepatitis B Surface Ag Negative (Negative)
[2021-01-10 09:54] LABS: Alpha 1 Antitrypsin,Serum 156 mg/dL (90-200)
[2021-01-10 09:55] LABS: Hepatitis C Ab w Rflx HCV PCR Negative (Negative)
[2021-01-10 10:54] LABS: IgA 557 mg/dL (85-499)
[2021-01-10 15:51] LABS: Smooth Muscle Ab Screen Negative (Negative)
[2021-01-10 19:37] LABS: Tissue Transglutaminase Ab IgA <1.2 U/mL
[2021-01-10 22:22] LABS: Mitochondrial Ab, M2 <0.1 U
== END 2021-01-09 02:19 | disposition home or self-care (01) ==
LOC: LBO 02:18
PROVIDERS: PCP Nurse Practitioner; Visit Provider Internal Medicine
DX: R16.0 Hepatomegaly, not elsewhere classified (principal)
CPT/HCPCS: 36415; 80053; 82306; 82784; 83516; 86706; 86803; 87340; 82103; 82607; 82728; 83540; 83550; 85025; 86255

== ENCOUNTER 2021-05-21 01:31 | Emergency (ER) | payer MEDICARE, MEDICAID, SELFPAY ==
[2021-05-21 01:35] VITALS: BP 117/57; PULSE 72; RESP 18; TEMP 36.8; O2SAT 97
--- NOTE | 2021-05-21 01:45 | DI.CT_ITS ---
Exam(s) CT RENAL COLIC WO EXAM: CT RENAL COLIC WO INDICATION: right flank pain. COMPARISON: CT CT ABDOMEN PELVIS W from 07/04/2020 TECHNIQUE: CT examination was performed without contrast administration. FINDINGS: Images obtained through the lung bases are unremarkable. There is mild splenomegaly. There is a no dular hepatic contour consistent with cirrhosis and there is a TI PS in place period. Visualized portions of the pancreas are unremarkable. Probable cholelithiasis, bile ducts are CT normal. Abdominal aorta is of normal diameter. No significant abdominal wall hernia. No significant abdominal or pelvic adenopathy. Adrenals appear normal bilaterally. The kidneys are normal in size and shape. There is moderate right hydronephrosis and hydroureter to the level of the distal ureter where there is a 3 millimeter in diameter intramural UVJ stone. Left kidney, ureter, and collecting system system are unremarkable, with no hydronephrosis or nephrol ithiasis. No ureteral dilatation or calcification identified. Urinary bladder is nearly empty and cannot be ev aluated. Right paramedian enterostomy noted.. IMPRESSION: 3 millimeter in diameter obstructing stone of the right ureterovesical junction period the stone appe ars to be intramural in location.. RADIATION DOSE DELIVERED: 1,385.72mGy.cm DLP 1,385.72mGy.cm Total DLP !Error CTDIvol RADIATION OPTIMIZATION: All CT scans at this facility use at least one of these dose optimization te chniques: automated exposure control; mA and/or kV adjustment per patient size (includes targeted exa ms where dose is matched to clinical indication); or iterative reconstruction.
--- NOTE | 2021-05-21 01:47 | ED.GENADUL_ITS ---
Discharge Plan Disposition Patient Disposition: HOME Condition: Stable Discharge Details Clinical Impression: Kidney stone, Flank pain Primary Care Provider: Iliana Hurt ED Provider: Martin De Leon Home Meds and New Rx's Prescriptions: New levofloxacin 750 mg tablet 750 mg PO DAILY Qty: 6 0RF ondansetron 4 mg tablet,disintegrating 4 mg PO Q8H PRN (Reason: nausea and vomiting) Qty: 30 0RF oxycodone 5 mg tablet 5 mg PO TID PRNQty: 10 0RF Continued calcium carbonate-vitamin D3 1,000 mg(2,500 mg)-800 unit tablet PO BID 0RF gabapentin 100 mg capsule See Rx Instructions PO QHS Qty: 90 5RF Rx Instructions: 100mg HS x 1wk, then 200mg HS x 1wk, then 300mg HS thereafter PO every day at bedtime; magnesium chloride 64 mg Tablet Extended Release 113 mg PO DAILY 0RF bupropion HCl 100 mg Tablet 100 mg PO BID 0RF ascorbate calcium (vitamin C) 500 mg tablet 250 mg PO BID 0RF ferrous gluconate 256 mg (28 mg iron) tablet 256 mg PO BID 0RF albuterol sulfate [ProAir HFA] 90 mcg/actuation HFA aerosol inhaler 2 puff inhalation .Q4-6HR PRN0RF levalbuterol tartrate [Xopenex HFA] 45 mcg/actuation HFA aerosol inhaler 2 inh inhalation .Q4-6HR 0RF metformin 500 mg tablet 1,000 mg PO BID 0RF acetaminophen [Mapap Extra Strength] 500 MG tablet 1 - 2 tab PO PRN PRN0RF methylphenidate HCl [Ritalin] 20 MG tablet 20 mg PO TID 0RF Discharge Data Discharge Physician: Martin De Leon Medical Decision Making 55 yo female with hx of crohn's s/p colon resection and ostomy, adhd, who comes in with complaints of burning with urination and right flank pain starting earlier tonight. She says yesterday she had n/v and did not feel well that improved and then her pain and dysuria began. Denies fevers, chills. Has had some blood in her urine when she urinated earlier as well. She arrives stable though does appear uncomfortable. she localizes the pain to the right oblique and right lower back. No cva tenderness, no abdominal tenderness, and normal appearing stool in her ostomy. She Has no midline back tenderness, no erythema, no warmth, no saddle anesthesia and normal distal sensation and pulses. Suspect pyelo vs cystitis vs kidney stone, will obtain ct renal colic and labs. She declines pain meds at this time. labs show bilirubin of 7 but had a TIPS done and has chronic cirrhosis. No ascites. She does have a 2.5mm uvj stone and is positive for nitrites. She has no fever or leukocytosis so doubt sepsis. I offered admission for pain control and antibiotics and if decline in status potential urological intervention but she declines at this time. She has stable vitals and no evidence of sepsis so feel it is reasonable to try oral antibiotics given the stone is at the uvj. Will start her on levofloxacin and will have her f/u with urology maria alejandra. Return precautions given (this was done with [employer] as there was an issue printing instructions through [employer] at the time) Differential Diagnosis Differential Diagnosis: cystitis, pyelo, kidney stone Medical Records Medical records reviewed: Yes I reviewed the patient's medical records. Imaging Data Radiologic Study: Attestation: I personally reviewed and interpreted this imaging study as follows: Imaging: CT Scan Radiologist's impression: IMPRESSION: 1. Right ureteral vesicular junction stone, 2.5 mm, almost within the urinary bladder. 2. Mild right hydroureteronephrosis. 3. Additional findings of enteritis with mesenteric inflammation. 4. Uncomplicated right lower quadrant ileostomy. 5. Cirrhosis. Splenomegaly. TIPS. No ascites. 6. Cholelithiasis, without cholecystitis. Lab Data Lab results reviewed: Yes I reviewed the patient's lab results. HPI General Mode of arrival: ambulatory . Date/Time Provider Initiated Documentation: 05/21/21 01:32 . Limitations to Documentation: no limitations . Information obtained by: patient . History of Present Illness 55 year old F presents to the emergency department with the chief complaint of dysuria, described as moderate, Patient started experiencing this hour(s) (6) and it has been constant. improves with No relieving factors improve symptom(s), No exacerbating factors reported . Patient notes denies chest pain, fever/chills and shortness of breath. Patient did receive the following treatments prior to arrival, other (tylenol) Related Data Home Medications Medication Instructions Recorded Confirmed acetaminophen 500 mg tablet (Mapap 1 - 2 tab PO PRN PRN 06/27/16 02/22/21 Extra Strength) methylphenidate HCl 20 mg tablet 20 mg PO TID 05/27/17 04/15/20 (Ritalin) albuterol sulfate 90 mcg/actuation 2 puff INHALATION .Q4-6HR PRN g 01/22/20 04/15/20 aerosol inhaler (ProAir HFA) ascorbate calcium (vitamin C) 500 250 mg PO BID tab 01/22/20 04/15/20 mg tablet ferrous gluconate 256 mg (28 mg 256 mg PO BID tab 01/22/20 04/15/20 iron) tablet levalbuterol tartrate 45 2 inh INHALATION .Q4-6HR g 01/22/20 04/15/20 mcg/actuation aerosol inhaler (Xopenex HFA) calcium carbonate 1,000 mg-vitamin tab PO BID tab 04/15/20 04/15/20 D3 20 mcg (800 unit) tablet gabapentin 100 mg capsule See Rx Instructions PO QHS #90 cap 04/15/20 04/15/20 bupropion HCl 100 mg tablet 100 mg PO BID 06/06/20 06/06/20 magnesium chloride 64 mg 113 mg PO DAILY 06/06/20 06/06/20 tablet,extended release metformin 500 mg tablet 1,000 mg PO BID tab 06/17/20 levofloxacin 750 mg tablet 750 mg PO DAILY #6 tab 05/21/21 ondansetron 4 mg disintegrating 4 mg PO Q8H PRN #30 tab 05/21/21 tablet oxycodone 5 mg tablet 5 mg PO TID PRN #10 tab 05/21/21 Previous Rx's Medication Instructions Recorded gabapentin 100 mg capsule See Rx Instructions PO QHS #90 cap 04/15/20 levofloxacin 750 mg tablet 750 mg PO DAILY #6 tab 05/21/21 ondansetron 4 mg disintegrating 4 mg PO Q8H PRN #30 tab 05/21/21 tablet oxycodone 5 mg tablet 5 mg PO TID PRN #10 tab 05/21/21 Allergies Allergy/AdvReac Type Severity Reaction Status Date / Time codeine AdvReac Unknown unable to Unverified 05/21/21 01:41 take related to colon removal ibuprofen AdvReac Unknown unable to Unverified 05/21/21 01:41 take related to colon removal General Stated Complaint: Urinary WILL: 4 Review of Systems All systems reviewed & are unremarkable except as noted in HPI and below Constitutional Constitutional: Denies chills, Denies fever(s) and Denies weakness Cardiovascular Cardiovascular: Denies chest pain and Denies dyspnea Respiratory Respiratory: Denies cough and Denies dyspnea Integumentary/Breasts Skin/Breast: Denies rash Neurologic Neurologic: Denies weakness PFSH All Active Problems (Updated 05/21/21 @ 03:29 by Martin De Leon MD) Kidney stone (Chronic) Flank pain (Acute) ADHD (Acute) Crohn's disease in remission (Acute) Anemia of chronic disease (Acute) Acute exacerbation of chronic low back pain (Acute) Back pain (Acute) Stoma bleed (Acute) Chest pain (Acute) H/O malignant neoplasm of colon (Acute) DVT prophylaxis (Acute) Discharge planning issues (Acute) Anemia, blood loss (Acute) GI bleed (Chronic) Medical History ADHD Adjustment disorder Anemia of chronic disease Chronic low back pain Colon cancer Crohn's disease in remission Depression with anxiety Diabetes mellitus type 2 in obese GERD (gastroesophageal reflux disease) Hyposmia HADLEY (obstructive sleep apnea) PTSD (post-traumatic stress disorder) Stoma bleed Vitamin B12 deficiency Vitamin D deficiency Surgical History H/O ileostomy History of endometrial ablation S/P colectomy S/P D&C (status post dilation and curettage) S/P LEEP Family History Mother , age 49 due to heart disease Diabetes Heart disease Hypertension Father Heart disease Social History Smoking/Tobacco Use Status: Never Smoking risk assessment performed?: Yes Alcohol Intake: never Drug use: Never Substance use type: does not use Household members: family Housing: house Number of Children: 5 number of grandchildren: 15 Pets and animals: Yes Pets and animals: dog(s) What type of physical activity do you participate in: none Seatbelt use: always Do you feel safe at home: Yes Do you feel safe in your relationship?: Yes Exam Const General: no acute distress Orientation: alert HENMT Head: normal to inspection Ears: external ears normal General nose exam: external nose normal Mouth: moist mucous membranes Eyes General: appearance normal, both eyes and all related structures Neck Neck: normal visual inspection Resp Effort & Inspection: normal respiratory effort and able to speak in complete sentences Cardio Rate: regular rate GI Palpation: soft and nontender Back/Spine/Pelvis Back: no CVA tenderness Skin General skin exam: no rashes or lesions noted Neuro General: patient alert and patient oriented x3 Extrem General: normal to inspection Psych Mental Status: mental status grossly normal Course Vital Signs Vital signs: Vital Signs Temperature 36.8 C 05/21/21 01:35 Pulse 72 05/21/21 01:35 Respiratory Rate 18 05/21/21 01:35 Blood Pressure 117/57 L 05/21/21 01:35 Pulse Oximetry 97 05/21/21 01:35 Temperature 36.8 C 05/21/21 01:35 Temperature Source Skin 05/21/21 01:35 Pulse 72 05/21/21 01:35 Respiratory Rate 18 05/21/21 01:35 Respiratory Effort 05/21/21 01:40 Blood Pressure 117/57 L 05/21/21 01:35 Blood Pressure Position Sitting 05/21/21 01:35 Pulse Oximetry 97 05/21/21 01:35 Oxygen Delivery Method Room Air 05/21/21 01:35 Oxygen Flow Rate 0 05/21/21 01:35 Pain Level 10 05/21/21 01:35
[2021-05-21] MEDS: Normal Saline 1,000 ML 1000 ML IV (01:56)
[2021-05-21 02:07] LABS: Abs Immature Grans 0.04 10^3/uL (0.0-0.06); Absolute Basophil Count 0.03 10^3/uL (0.0-0.2); Absolute Eosinophil Count 0.15 10^3/uL (0.0-0.7); Absolute Lymphocyte Count 1.65 10^3/uL (1.2-3.4); Absolute Monocyte Count 0.95 10^3/uL (0.1-0.8); Absolute Neutrophil Count 3.33 10^3/uL (1.2-6.7); Basophils % 0.5; Eosinophils % 2.4; HCT 42.9 % (36.0-46.0); HGB 14.6 g/dL (11.2-15.7); Immature Grans % 0.7; Lymphocytes % 26.8; MPV 11.1 fL (8.0-11.0); Monocytes % 15.4; Neutrophils % 54.2; Nucleated RBC 0 %; Platelet Count 104 10^3/uL (130-400); RBC 4.29 10^6/uL (3.93-5.22); RDW 14.2 % (11.7-14.6); RDW-SD 51.8 fL; WBC 6.15 10^3/uL (4.4-10.8)
[2021-05-21 02:17] LABS: BUN 22 mg/dL (7-18); CREATININE 0.8 mg/dL (0.55-1.02); Potassium 3.7 mmol/L (3.5-5.1); Sodium 135 mmol/L (136-145); Total Protein 7.5 g/dL (6.4-8.2)
[2021-05-21 02:30] LABS: ALT 41 U/L (14-59); AST 100 U/L (15-37); Albumin 3.3 g/dL (3.4-5.0); Alkaline Phosphatase 110 U/L (46-116); Anion Gap 13.2 mmol/L (3-11); Bilirubin, Total 7.1 mg/dL (0.2-1.0); CO2 18.8 mmol/L (21.0-32.0); Calcium 8.6 mg/dL (8.5-10.1); Chloride 103 mmol/L (98-107); Glucose 102 mg/dL (74-106); Lipase 93 U/L (73-393)
--- NOTE | 2021-05-21 02:45 | DI.VRAD_ITS ---
PROCEDURE INFORMATION: Exam: CT Abdomen And Pelvis Without Contrast Exam date and time: 05/21/2021 2:04 AM Age: 55 years old Clinical indication: Abdominal pain; Other: R flank and rlq; Prior surgery; Surgery date: 6+ months; Surgery type: Colectomy, ileostomy, leep, and endometrial ablation, ; patient HX: R flank pain radiating into rlq; Additional info: HX of colon cancer TECHNIQUE: Imaging protocol: Computed tomography of the abdomen and pelvis without contrast. Radiation optimization: All CT scans at this facility use at least one of these dose optimization techniques: automated exposure control; mA and/or kV adjustment per patient size (includes targeted exams where dose is matched to clinical indication); or iterative reconstruction. COMPARISON: CT ABDOMEN PELVIS W 07/04/2020 12:54 PM FINDINGS: Lungs: Lung bases are clear. Liver: Limited noncontrast liver imaging. Transjugular intrahepatic portosystemic shunt (TIPS) stent material noted. Gallbladder and bile ducts: Small calcified stones noted in the gallbladder. No inflammatory change. No ductal dilatation. Pancreas: Normal. No ductal dilation. Spleen: Elongated spleen, 15 cm. Splenic capsule calcifications noted laterally, unchanged. Adrenal glands: Normal. No mass. Kidneys and ureters: Mild right hydronephrosis. Right ureter is mildly dilated. A 2.5 mm stone is observed at the right ureteral vesicular junction. Normal left kidney. Stomach and bowel: Subtotal colectomy. Unremarkable distal colonic stump, collapsed. Right lower quadrant ileostomy. Fat planes around the small bowel are indistinct. No abnormal distension. Unremarkable stomach. Appendix: Absent. Intraperitoneal space: Mild mesenteric fat stranding. Negative for free fluid or free air. Negative for abscess. Vasculature: Unremarkable. No abdominal aortic aneurysm. Lymph nodes: Mildly prominent mesenteric lymph nodes. Negative for suspicious retroperitoneal lymphadenopathy. Urinary bladder: Collapsed urinary bladder. Reproductive: Unremarkable as visualized. Bones/joints: Negative for compression fracture. Moderate degenerative changes noted at the lumbosacral junction. Narrowing and osteophytes noted in both hips. Soft tissues: Unremarkable. IMPRESSION: 1. Right ureteral vesicular junction stone, 2.5 mm, almost within the urinary bladder. 2. Mild right hydroureteronephrosis. 3. Additional findings of enteritis with mesenteric inflammation. 4. Uncomplicated right lower quadrant ileostomy. 5. Cirrhosis. Splenomegaly. TIPS. No ascites. 6. Cholelithiasis, without cholecystitis. Dictated and Authenticated by: Martin Hdz MD. Ordering:ADELA Salazar MD
[2021-05-21 02:57] LABS: Bilirubin Large (Negative); Blood Large (Negative); Clarity Cloudy (Clear); Glucose 100 mg/dL (Negative); Ketones 15 mg/dL (Negative); Leukocyte Esterase Large (Negative); Nitrite Positive (Negative); Specific Gravity >= 1.030 (1.005-1.025)
[2021-05-21 03:13] LABS: RBC >50 HPF (0-2)
[2021-05-21 03:14] LABS: C & S Indicated? Yes
[2021-05-21] MEDS: fentaNYL 100 MCG/2 ML VIAL IVP (03:18)
[2021-05-21] MEDS: levoFLOXacin 500 MG, levoFLOXacin 250 MG 750 MG PO (03:37)
[2021-05-21] MEDS: Ondansetron 4 MG/2 ML VIAL IVP (03:37)
[2021-05-21 03:50] VITALS: BP 132/68; PULSE 95; RESP 18; O2SAT 98
== END 2021-05-21 03:50 | disposition home or self-care (01) ==
PROVIDERS: Emergency Provider Emergency Medicine; PCP Nurse Practitioner
DX: N20.0 Calculus of kidney (principal); R10.9 Unspecified abdominal pain; R11.2 Nausea with vomiting, unspecified
CPT/HCPCS: 36415; 80053; 83690; 96361; 96374; 96375; 99284; 74176; 81003; 81015; 85025; 87086; J2405; J3010

== ENCOUNTER → 2021-06-25 12:46 | Outpatient (BNVA) | payer MEDICARE, MEDICAID, SELFPAY | PROVIDERS: PCP Family Medicine; Referring Provider Nurse Practitioner; Visit Provider Nurse Practitioner Gerontology | DX: N20.0 Calculus of kidney (principal); N13.30 Unspecified hydronephrosis | CPT/HCPCS: 81003; 99215 ==

== ENCOUNTER 2021-07-30 09:56 | Outpatient (REF) | payer MEDICARE, MEDICAID, SELFPAY ==
--- OUTSIDE RECORDS SUMMARY | 2021-07-30 09:58 | XMS_ITS | Encounter Summary ---
:1965 Author Care Team Providers Name Role Phone Dr. Iliana Hurt Primary Care Provider [phone] Iliana Hurt Primary Care Provider [phone] Yenifer Salcedo Primary Care Provider [phone] Dr. Iliana Hurt Referring Provider [phone] Yenifer Salcedo Referring Provider [phone] Reason for Visit Dr Hi wants to see pt in May for a 6 month follow up. Patient's feet are swollen so much she can't wear shoes. By the afternoon she has to lay down, put cold packs on them. She has a hard time walki ng to the bathroom when they are that bad. Assessment and Plan 1. Cirrhosis of liver She has not had further bleeding since her TIPS. Her gradient was decreased from 10 mmHg to 4-5 mmHg. Reviewed on going cirrhosis management w ith ultrasound, CBC, CMP, INR, and AFP every 6 months. Next due in now. Follow up visit in 6 months with ultrasound and labs. #At risk for HCC - due for ultrasound now, will also eval uate TIPS given lower limb edema and increasing T bili. #Lower limb edema Start Lasix and Aldactone. Follow up lab s next week. 25 minutes was spent in face to face enc ounter. Approximately 5 minutes was spent in review of records and documentation. Approximate total encounter time today was 30 minutes. ? US, abdomen - cirrhosis, HCC screenin g, f/u TIP, ?increase velocities ? CBC w/ auto diff ? hepatic function panel, serum ? BMP, serum or plasma ? PT/INR ? Lasix 20 mg tablet ? Aldactone 50 mg tablet Discussion Note: None recorded.Patient educational handouts: No information available. Plan of Care Reminders Provider Appointments Gastroenterology Follow up 01/13/2022 Isabela Hi MD 10:00AM Lab CBC W/ Auto Diff 07/08/2021 [facility] l Lab ? Hepatic Function Panel, Serum 07/08/2021 [facility] Lab ? BMP, Serum or Plasma 07/08/2021 [facility] Lab ? PT/INR 07/08/2021 [facility] Lab Referral None recorded. ? ? Procedures None recorded. ? ? Surgeries None recorded. ? ? Imaging US, Abdomen 07/08/2021 [facility] Medications Name Start Date ? ? Aldactone 50 mg tablet ? Take 1 tablet every day by oral route. Bengay Ultra Strength 4 %-30 %-10 % topical cream ? Apply 1 g 3 times a day by topical route as directed. cholecalciferol (vitamin D3) 50 mcg (2,000 unit) capsu le ? Take 1 capsule every day by oral route. ferrous sulfate 325 mg (65 mg iron) tablet ? Take 1 tablet 3 times a day by oral route. Lasix 20 mg tablet ? Take 1 tablet every day by oral route. metformin 500 mg tablet ? Take 2 tablets twice a day by oral route. methylphenidate 20 mg tablet ? Take 1 tablet 3 times a day by oral route. Tylenol Extra Strength 500 mg tablet ? Take 2 tablets every 4 hours by oral route. Medications Administered None recorded. Vitals Height Weight BMI Blood Pressure 5 ft 4 in 220.8 lbs 37.9 kg/m2 110/64 mm[Hg] Results Lab Results None recorded. Allergies Code Code System Name Reaction Severity Onset 2670 RxNorm Codeine ? ? ? 5640 RxNorm Ibuprofen ? ? ? Notes: No time release medication due to Colon removal Problems Name Status Onset Date Source ? Malignant Tumor of Colon Active 10/08/1999 ? Low Back Pain Active 06/03/2017 ? Posttraumatic Stress Disorder Active ? ? Procedures Date Name Performed by ? 10/08/1999 Colostomy Information not avai lable 10/08/1999 Removal of Colon Information not avai lable 07/08/2021 US, Abdomen Xray [facility] [address] [place], [place] [address] (Work Place) Vaccine List None recorded. Social History Tobacco Smoking Status Never Smoker Has tobacco cessation counseling been provided? N Are you able to care for yourself? Y Are you currently waiting on results of a COVID-19 test? N Tobacco - Do you use chewing tobacco? N Are you isolating or quarantining because you may have been exposed N to a person with COVID-19 or are worried that you may be sic k with COVID-19? What was the date of your most recent tobacco screening? Do you have an advanced directive? N Tobacco - Do you smoke? N Do you use any illicit or recreational drugs? N Tobacco - Are you around people that smoke? N What is your level of alcohol consumption? None Have you travelled outside of [place] in the past 14 day s? N Have you experienced any of the following symptoms in the mt st 48 N hours? Fever/Chills, Cough, Shortness of breath or difficult y breathing, fatigue, muscle or body aches, headache, new loss of taste or smell, sore throat, congestion or runny nose, nause a or vomiting and/or diarrhea Have you had any vaccines in the last month or do you have a ny N vaccines scheduled? Which illicit or recreational drugs have you used? none Within the past 14 days, have you been in close physical con tact (6 N feet or closer for a cumulative total of 15 minutes) with an yone that is known to have laboratory-confirmed COVID-19? OR Anyo ne who has any symptoms consistent with COVID-19? Are you passively exposed to smoke? N Do you or have you ever used any other forms of tobacco or n icotine? N Alcohol - Daily intake: None Family History Relation Problem Onset Age of Age Notes Mother Myocardial infarction (No Information) 49 (N o Notes) Maternal Grandmother Malignant tumor of (No Information) 60 (No Notes) breast Father Malignant neoplasm of (No Information) 80 (N o Notes) skin Paternal Aunt Malignant tumor of (No Information) N/A (No Notes) colon Functional Status Unknown. Past Encounters 07/08/2021 Cirrhosis of Liver Juani Hi MD: [address] [place] [phone], Ph. History of Present Illness Note: <div>She has noted more lower edema around her feet. She has found that interferes with driving and walking. This has been present for the three to four weeks. She had a kidney stone at the timeand did get IV fluids and had decreased urination with hematuria. She was seen for this in [facility]. No jaundice, ascites, hepatic encephalopathy, or GI bleeding. She reports chest pain on occasion, reports this has been going on for years and is unchanged. She tries to eat low salt, but is not tracking her sodium intake, and states she does not like bland food. </div>Review of Systems: ROS as noted in the HPI Review of Systems None recorded. Physical Exam ? Notes: <div>Gen: appears state age, NAD</div><div>Limbs: +2 edema in feet bilaterally </div>
--- OUTSIDE RECORDS SUMMARY | 2021-07-30 09:58 | XMS_ITS ---
:1965 Author Care Team Providers Name Role Phone DR. ALEX CANSECO Primary Care Provider [phone] DR. ALEX CANSECO Referring Provider [phone] ALEX CANSECO Primary Care Provider [phone] MONY CARRERO Primary Care Provider [phone] MONY CARRERO Referring Provider [phone] Allergies Code Code System Name Reaction Severity Status Onset 2670 RxNorm Codeine ? ? Active ? 5640 RxNorm Ibuprofen ? ? Active ? Notes: No time release medication due to Colon removal Medications Name Status Start Date Stop Date ? ? Aldactone 50 mg tablet Active ? Not avail able Take 1 tablet every day by oral route. Aleve 220 mg capsule Completed ? 08/01/2018 [...] by oral route. Lasix 20 mg tablet Active ? Not available Take 1 tablet every day by oral [...] Performed by ? 10/08/1999 Colostomy Information not [facility] lab 10/08/1999 Removal of Colon Information not [facility] 08/23/2019 US, Abdomen, [facility] - Radiology [address] [place] [address] (Work Place) 06/27/2020 CT, Abdomen, W/ Contrast Xray [facility] [address] [place], [place] [address] (Work Place) 07/01/2020 CT, Abdomen + Pelvis, W/ Contrast Xray [facility] [address] [place], [place] [address] (Work Place) 12/20/2020 US, Abdomen, Limited Xray [facility] [address] [place], [place] [address] (Work Place) 11/28/2020 US, Duplex, Abdomen Xray [facility] [address] [place], [place] [address] (Work Place) 07/08/2021 US, Abdomen Xray [facility] [address] [place], [place] [address] (Work Place) Results Lab Results Date Name Specimen Result Interpretation Description Value Range Status Address ? 07/01/2020 CBC W/ Auto Diff ? No ? ? ? observation recorded. 08/17/2019 CBC W/ Auto Diff ? No ? ? ? [facility] nt recorded. [facility]: [address] [facility] [address], [place] 08/29/2018 CBC W/ Auto Diff WB Normal Wbc 4.8 4.8- Fin al [facility] 10^3/ 10.8 Hospital mm^3 10^3 Laboratory & /mm^ Pathology: 90 [address] [facility] ? ? WB Low Rbc 3.74 3.90 Final [facility] 10^6/ -5.0 Hospital mm^3 3 Laboratory & 10^6 Pathology: 90 /mm^ [address] ? ? WB Low Hgb 10.7 12.0 [place] g/dL -15. Hospital 5 Laboratory & g/dL Pathology: [facility] ? ? WB Normal Hct 36 % 36-4 [facility] [place] 6 % Hospital Laboratory & Pathology: [address] [place] [address] ? ? WB Normal Mcv 94.9 81.0 [place] fL -99. Hospital 0 fL Laboratory & Pathology: [address] [place] [address] ? ? WB Low Mch 28.6 33.0 [place] pg -36. Hospital 0 pg Laboratory & Pathology: [address] [place] [address] ? ? WB Low Mchc 30 33-3 [place] g/dL 6 Hospital g/dL Laboratory & Pathology: [address] [place] [address] ? ? WB Normal Rdw 14.7 11.6 [place] % -14. Hospital 8 % Laboratory & Pathology: [address] [place] [address] ? ? WB Normal Platelets 165 150- [place] [facility] 10^3/ 400 Hospital mm^3 10^3 Laboratory & /mm^ Pathology: 90 3 [facility] ? ? WB Normal Ne# 3.07 1.20 [facility] [place] 10^3/ -6.7 Hospital mm^3 0 Laboratory & 10^3 Pathology: 90 /mm^ [address] ? ? WB Low Ly# 1.13 1.20 [facility] 10^3/ -3.4 Hospital mm^3 0 Laboratory & 10^3 Pathology: 90 /mm^ [address] ? ? WB Normal Mo# 0.49 0.11 [facility] 10^3/ -0.7 Hospital mm^3 0 Laboratory & 10^3 Pathology: 90 /mm^ [address] ? ? WB Normal Eo# 0.07 0.00 [facility] 10^3/ -0.7 Hospital mm^3 0 Laboratory & 10^3 Pathology: 90 /mm^ [address] ? ? WB Normal Ba# 0.02 0.00 [facility] [place] 10^3/ -0.2 Hospital mm^3 0 Laboratory & 10^3 Pathology: 90 /mm^ [address] ? ? WB Normal Neut% 64 % 40-7 [place] per 4 % Hospital 100 per Laboratory & WBC 100 Pathology: 90 WBC [facility] ? ? WB Normal Ly% 24 % 19-4 [place] per 8 % Hospital 100 per Laboratory & WBC 100 Pathology: 90 WBC [facility] ? ? WB High Mo% 10.3 3.0- [facility] [place] % per 10.0 Hospital 100 % Laboratory & WBC per Pathology: 90 100 [facility] ? ? WB Normal Eo% 1.5 % 1.0- [place] per 7.0 Hospital 100 % Laboratory & WBC per Pathology: 90 100 [facility] ? ? WB Normal Ba% 0.4 % 0.0- [place] per 2.0 Hospital 100 % Laboratory & WBC per Pathology: 90 100 [facility] 07/15/2017 Carcinoembryonic ? No ? ? ? [facility], Quant, Serum observation [place] or Plasma recorded. [facility]: [address] [facility] , [place] Past Encounters 07/08/2021 Cirrhosis of Liver Juani Hi MD: [address] [place] [phone], Ph. 11/28/2020 Cirrhosis of Liver Juani Hi MD: [address] [place] [phone], Ph. 08/13/2020 Cirrhosis of Liver Juani Hi MD: [address] [place] [phone], Ph. 06/27/2020 Hepatomegaly; Gastrointestinal Hemorrhag e Juani Hi MD: [address] [place] [phone], Ph. 05/09/2020 Manfred Dyson, DO: [address] [place] [phone], Ph. Social History Tobacco Smoking Status Never Smoker Vaccine List None recorded. Plan of Care Reminders Provider Appointments None recorded. ? ? Lab None recorded. ? ? Referral None recorded. ? ? Procedures None recorded. ? ? Surgeries None recorded. ? ? Imaging None recorded. ? ? Vitals 07/08/2021 11:00AM FOLLOW UP Height Weight BMI Blood Pressure 162.56 cm 100.15 kg 37.9 kg/m2 110/64 mm[Hg] 11/28/2020 11:30AM GASTROENTEROLOGY FOLLOW UP Height Weight BMI Blood Pressure 162.56 cm 98.61 kg 37.3 kg/m2 128/62 mm[Hg] 08/13/2020 01:00PM GASTROENTEROLOGY FOLLOW UP Height Weight [...]
[2021-07-30 16:16] LABS: COMMENT (LAB VIEW ONLY) 194.64 mg/dL; Microalb ug/mg Crea 4.7 ug/mg Cr
== END 2021-07-30 09:57 | disposition home or self-care (01) ==
LOC: NCHCN 09:56
PROVIDERS: PCP Family Medicine; Visit Provider Family Medicine
DX: E11.9 Type 2 diabetes mellitus without complications (principal)
CPT/HCPCS: 82043; 82570

== ENCOUNTER 2021-08-13 16:03 | Outpatient (REF) | payer MEDICARE, MEDICAID, SELFPAY ==
[2021-08-13 14:26] LABS: HCT 38.6 % (36.0-46.0); HGB 13.4 g/dL (11.2-15.7); MCH 34.8 pg (27.0-33.0); MCHC 34.7 % (32.0-36.0); MCV 100 fL (80-95); MPV 11.4 fL (8.0-11.0); RBC 3.85 10^6/uL (3.93-5.22); RDW 14.2 % (11.7-14.6); RDW-SD 51.8 fL; WBC 5.05 10^3/uL (4.4-10.8)
[2021-08-13 14:34] LABS: ALT 33 U/L (14-59); AST 55 U/L (15-37); Albumin 3.1 g/dL (3.4-5.0); Alkaline Phosphatase 113 U/L (46-116); Anion Gap 8.3 mmol/L (3-11); BUN 12 mg/dL (7-18); Bilirubin, Direct 2.9 mg/dL (0.0-0.2); CO2 25.7 mmol/L (21.0-32.0); CREATININE 0.6 mg/dL (0.55-1.02); Calcium 8.3 mg/dL (8.5-10.1); Chloride 101 mmol/L (98-107); Glucose 129 mg/dL (74-106); Potassium 3.4 mmol/L (3.5-5.1); Sodium 135 mmol/L (136-145); Total Protein 6.8 g/dL (6.4-8.2)
[2021-08-13 14:48] LABS: Platelet Count 96 10^3/uL (130-400)
[2021-08-14 09:56] LABS: HIV-1/2 Ag & Ab Screen Negative (Negative)
== END 2021-08-13 16:04 | disposition home or self-care (01) ==
LOC: NCHCN 16:03
PROVIDERS: PCP Family Medicine; Visit Provider Family Medicine
DX: R60.0 Localized edema (principal); Z11.4 Encounter for screening for human immunodeficiency virus [HIV]; R79.1 Abnormal coagulation profile; K74.69 Other cirrhosis of liver
CPT/HCPCS: 80048; 80076; 85027; 87389

== ENCOUNTER → 2021-08-22 00:14 | Outpatient (CLI) | payer MEDICARE, MEDICAID, SELFPAY ==
--- NOTE | 2021-08-22 | DI.US_ITS ---
Exam(s) US ABDOMEN EXAM: US ABDOMEN CLINICAL HISTORY: F/U CIRRHOSIS OF LIVER, K74.60 TECHNIQUE: Ultrasound of complete upper abdomen performed using standard protocol. COMPARISON: US US ABDOMEN LIMITED from 01/07/[address] RENAL COLIC WO from 05/21/2021 FINDINGS: Recent CT scan of 05/21/2021 revealed a TIPS shunt in place. LIVER: Liver is echogenic with mildly coarse echotexture., consistent with element of cirrhosis. The re are no discrete focal hepatic lesions evident on these images. Flow interrogation in the portal v ein revealed flow to be hepatopetal. GALLBLADDER/BILIARY: No obvious gallstones evident on these images. The common hepatic duct isnot dilated, measuring 2-3mm at the level of edelmira hepatis. PANCREAS: There is no evidence of pancreatic mass nor dilatation of the pancreatic duct. SPLEEN: The spleen is not enlarged and there are no intrasplenic lesions evident. KIDNEYS:Kidneys exhibit normal size with no evidence of solid mass, calculus, nor hydronephrosis. No cortical cysts evident. Previously present hydronephrosis of the right kidney seen on the CT scan of 05/21/2021 is not evident on today's ultrasound. That was apparently caused by a small distal right ureteral calculus at the intramural aspect of the right UVJ. ABDOMINAL AORTA: There is no evidence of abdominal aortic aneurysm. IVC: Normal diameter where visualized. IMPRESSION: 1. No evidence of obvious cholelithiasis nor dilatation of the biliary tree on these ultrasound imag es... However, in reviewing the recent CT scan of 05/21/2021 there does appear to be a hyperdense ma terial at the level the gallbladder neck suspicious for gallstones. 2. Cirrhotic appearing liver. Prior CT scan revealed a TIPS in place. 3. There is no ascites. DATA REPOSITORY:
--- OUTSIDE RECORDS SUMMARY | 2021-08-22 00:16 | XMS_ITS | Encounter Summary ---
:1965 Author Organization [facility] [address] Care Team Providers Name Role Phone Iliana Hurt APRN Primary Care Provider Reason for Visit Diagnostic Test (Routine) - Closed Specialty Diagnoses / Procedures Referred By Contact Refer red To Contact Radiology Diagnoses Hepatic cirrhosis, unspecified hepatic cirrhosis type, unspecified whether ascites present Juani Hi MD [facility] Interventionl Rad Procedures IR TIPS [facility] [address] [place] [phone] Fax: Referral ID Status Reason Start Date Expiration Date Visits V isits Requested Authorized [id number] Closed Specialty 07/23/2020 01/22/2022 1 1 Service Requested Encounter Details Date Type Department Care Team Description 09/03/2020 Hospital Encounter Radiology [place] [facility] Juani Hi, Canceled (P-CHANGE [facility] PROVIDER) [facility] [address] [place], [place] [phone] Social History Tobacco Use Types Packs/Day Years Used Date Never Smoker Sex Assigned at Date Recorded Not on file documented as of this encounter Medications at Time of Discharge Medication Sig Dispensed Refills Start Date End Date oxyCODONE (Roxicodone) 5 mg Take 1 tablet by 10 tablet 0 Tablet mouth every 4 hours as needed for Pain. metFORMIN (Glucophage) 500 Take 500 mg by 0 mg Tablet mouth 2 times daily (with meals). 1,000 mg twice a day ferrous gluconate (Fergon) Take 324 mg by 0 324 mg (37.5 mg iron) mouth daily. Tablet methylphenidate (RITALIN) Take 20 mg by 0 20 mg Tablet mouth 3 times daily. Ostomy Supplies (Convatec by Misc.(Non-Drug; 0 Night Drain Container) Misc Combo Route) route. naproxen sodium (ALEVE) 220 Take 660 mg by 0 10/07/2020 mg tablet mouth 2 times daily as needed. HYDROcodone-acetaminophen Take 1-1.5 tablets 0 10/09/2020 5-325 mg per tablet by mouth every 6 hours as needed. clonazePAM (KLONOPIN) 1 mg Take 1 mg by mouth 0 10/09/2020 tablet 2 times daily. melatonin 3 mg Tab Take by mouth 0 nightly. documented as of this encounter Plan of Treatment Not on filedocumented as of this encounter Procedures Procedure Name Priority Date/Time Associated Diagnosis Comme nts IR TIPS Routine 10/08/2020 11:24 AM Hepatic cirrhosis, Re sults for this EDT unspecified hepatic procedur e are in cirrhosis type, the results unspecified whether section. ascites present documented in this encounter Results IR TIPS (10/08/2020 11:24 AM EDT) Anatomical Region Laterality Modality Abdomen X-Ray Angiography Specimen (Source) Anatomical Location Collection Method / Collectio n Time Received Time / Laterality Volume Narrative 10/10/2020 8:46 AM EDT IR PROCEDURE NOTE Procedure: TIPS creation Portosystemic pressure transduction Indication for Procedure: As per the not e by Dr. Rocha on 09/05/20, 54 y.o. female presenting in consultati on at the request of Dr. Juani Hi and Dr. Rob Huitron as well as the patient herself for recurrent ostial bleeding in the setting of DAMON Cirrhosis and Portal Hypertension for consideration of TIPSS creation. ??Past medical history is significant for obesity, pre-diabetes, c olon carcinoma status post colonic resection and colostomy creation in 2019 . ??The patient was recently diagnosed with macrocytosis. ??The patie nt was followed by Dr. Hi at [facility]. 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 ??The ashanti chavez underwent work-up at [facility] which revealed a normal echocar diogram and a conventional hepatic vein/portal vein anatomy. Procedure events and findings: After obtaining written/informed consent , the patient was positioned supine on the procedure table under Anes thesia. Right neck base was prepped and draped, maximum sterile [place] ier technique was employed through out the case. The right internal jugular vein was acce ssed using a micropuncture set. A 4 Fr sheath was placed then exchanged fo r a 5 Fr sheath. A second, more cranial, position on the right neck was selected and the right IJ vein was accessed once again using micropuncture technique, a 4 Fr sheath was placed. A 5 Fr angled catheter and glide wire we re placed through the existing 5 Fr sheath which were used to select the right hepatic vein. The catheter was then advanced distally into the hepa tic vein and wedged in a small hepatic vein branch. A CO2 portogram was performed, demonstrating position of the portal venous system. The more cranial 4 Fr sheath in the formerly [facility] t IJV was exchanged for a 10Fr sheath over a guidewire following dilati on of the tract. An IVUS probe was then advanced through the sheath and pos itioned in the IVC. The IVUS probe was used for intra-procedural imaging in cluding assistance with needle deployment and assessing stent position in the portal vein and at the hepatic vein-IVC confluence. The 5 Fr sheath was exchanged for a 10 F r sheath and advanced into the right hepatic vein. Attempts to advanced the Rosch Uchida TIPS set and needle resulted in dislodgement of the s radha from the right hepatic vein. The right hepatic vein was then selected with the assistance of a 5 Fr C2 glidecath and an 0.035 glidewire advanc ed through the 10 Fr sheath. The Rosch Uchida TIPS set and needle wer e then advanced through the sheath into the right hepatic vein over an 0.03 5 guidewire. The guidewire was removed and the needle was advanced, dir ected with the tip anteromedial and advanced through the parenchyma into the portal system, needle position documented with IVUS. Once the position in the portal system had been documented with contrast injection, a wire was advanced into the main portal vein. An angled catheter was adva nced into the portal vein and position was confirmed with contrast inj ection. An 0.035 Amplatz guidewire was then adv anced through the angled catheter into the splenic vein. Angled catheter w as removed and the parenchymal tract was dilated to 8 mm with over the wire 8 mm x 40 mm balloon angioplasty. At this time pressures were measured as follows: 15 mm Hg main portal vein, 5 mm Hg right atrium f or a gradient of 10 mm Hg. An 8-10 mm x 10 cm (8 cm covered) Viator r stent was then placed over the wire, positioned between the right edelmira l and right hepatic veins. The portal venous aspect of the stent was re inforced with a 10 mm x 40 mm LifeStar stent due to concern for kink d ue to telescoping at the junction between covered and uncovered portions o f the Viatorr. The TIPS (both stents) was then dilated to 8 mm. Repeat pressures were performed: 12 mm Hg main portal vein, 7-8 mm Hg right atr ium for a gradient of 4-5 mm Hg. IVUS showed the tip of the TIPS stent te rminating at the hepatic vein-IVC confluence. A 5 Fr angled catheter was a dvanced through the TIPS to the main portal vein and portogram was perfo rmed. Portogram showed flow from the portal vein through the TIPS to the right atrium. There was no opacification of varices in the expected region of the ostomy or the umbilicus. The angled catheter and IVUS probe were then respectively withdrawn. Both 10 Fr sheaths were removed and hemostasi s was obtained with manual compression. A dressing was applied. The patient tolerated the procedure well and there were no immediate complic ations. Medications: 1% Lidocaine <10 cc SQ, ple ase see Anesthesiology documentation for additional medication details. ??Antibiotic Prophylaxis: Unasyn 3 g IV once ? Contrast: 95 cc. Omni 350. Fluoro: 530 mGray Est Blood Loss: <20 cc. Complications: No immediate. Impression: 1. TIPS creation, 8-10 mm x 10 cm Viator r stent (8 cm covered) from the right portal vein to the IVC. 2. Uncovered 10mm stent placed across TI PS portal end (covered/uncovered junction) due to concern for kink at cov ered/uncovered junction. 2. TIPS dilated to 8 mm, final portosyst emic gradient 4-5 mm Hg on conclusion of procedure. 3. No opacification of varices in the re gion of the ostomy or umbilicus on post-procedural portal venography. Resident/Fellow: Vidal Delgado MD Attending: Gordon Fang MD. ??I, Dr. Malu burnett was present throughout this procedure. ?? Juani Hi MD IMG IR ORDERABLES documented in this encounter Visit Diagnoses Not on filedocumented in this encounter Care Teams Senior Environmental Scientist Relationship Specialty Start Date End Date Iliana Hurt APRN PCP - General Family Medicine 07/18/[address] [place] [address] [place] [address] documented as of this encounter
--- OUTSIDE RECORDS SUMMARY | 2021-08-22 00:16 | XMS_ITS | Encounter Summary ---
:1965 [place] [address] Care Team Providers Name Role Phone Iliana Hurt APRN Primary Care Provider Reason for Referral Consultation (Routine) - Closed Specialty Diagnoses / Procedures Referred By Contact Refer red To Contact Gastroenterology Diagnoses S/P TIPS (transjugular intrahepatic portosystemic shunt) Tatyana Coyne Drinane, Mary C, MD MD [address] [place] [id number] [facility] [place] [address] Referral ID Status Reason Start Date Expiration Date Visits V isits Requested Authorized [id number] Closed Consult, 10/09/2020 04/07/2021 1 1 Test & Treat Reason for Visit Auth/Cert Specialty Diagnoses / Procedures Referred By Contact Refer red To Contact Diagnoses S/P TIPS (transjugular intrahepatic portosystemic shunt) Hepatic cirrhosis Procedures PRO INSERT TRANSVEN INTRAHEP PORTOSYS SHUNT TRANSJUGULAR INTRAHEPATIC PORTAL SHUNT (WRVU 16.97) Referral ID Status Reason Start Date Expiration Date Visits Requ ested Visits Authorized [id number] 1 1 Encounter Details Date Type Department Care Team Description 10/08/2020 - Hospital Short Stay Unit at Alek Berman MD [facility] DIAGNOST[place] [address] S/P TIPS 10/09/2020 Encounter [place] [address] ([facility] [place] [address] intrahepatic [facility] portosyst emic shunt) [place] [id number] Social History Tobacco Use Types Packs/Day Years Used Date Never Smoker Smokeless Tobacco: Never Used Alcohol Use Standard Drinks/Week Comments Not Currently 0 (1 standard drink = 0.6 oz pure alcoho l) Sex Assigned at Date Recorded Not on file documented as of this encounter Last Filed Vital Signs Vital Sign Reading Time Taken Comments Blood Pressure 121/58 10/09/2020 11:19 AM EDT Pulse 89 10/08/2020 7:19 PM EDT Temperature 37 ??C (98.6 ??F) 10/09/2020 11:19 AM EDT Respiratory Rate 14 10/09/2020 11:19 AM EDT Oxygen Saturation 94% 10/09/2020 11:19 AM EDT Inhaled Oxygen Concentration - - Weight 95.7 kg (211 lb) 10/08/2020 6:36 AM EDT Height 162.6 cm (5' 4) 10/08/2020 6:36 AM EDT Body Mass Index 36.22 10/08/2020 6:36 AM EDT documented in this encounter Discharge Instructions Discharge Doc Knutson - 10/09/2020 1:49 PM EDT [facility] Vascular and Interventional Radiology Transjugular Intrahepatic Portosystemic Shunt (TIPS)-revision Activity And Diet: ??? Go home and rest quietly for the remainder of the day. You may resume your normal activities tomorrow. ??? Resume your usual diet after the procedure. ??? Do not drive, sign any important/legal documents, or make any important decisions for 24 hours following sedation medications. When to call your healthcare provider: ??? If you see any redness, swelling or drainage at the catheter site. ??? If you develop chills. ??? If you have a fever greater than or equal to 101 degrees Fahrenheit. ??? If you develop pain at the puncture site in your neck. ??? If you develop abdominal pain. Bandage: ??? Check the dressing/bandaid throughout the day for an increase in drainage. Keep the site dry for24 hours. Replace the bandaid as needed. You may shower 24 hours after the procedure. Medication: ??? DO NOT take aspirin-containing products, ibuprofen, or blood-thinning medication for the next 24hours unless your provider says you may do so. ??? Generally you may use acetaminophen as needed for discomfort unless you have liver disease and are instructed not to take acetaminophen. When to call the Interventional Radiology Department: Please call with any questions or concerns. Ifit is during regular office hours, please call [phone]. If it is after regular office hours, oron s or holidays, please call [phone] and ask to speak to the Sales Operations Coordinator on callfor Interventional Radiology. XX You have received medication during your procedure to help lessen anxiety and keep you comfortable. These medications affect judgement and reaction time. We recommend that you do not drive, operateequipment, sign any important documents, or smoke unattended for 24 hours following your procedure. Because of the sedation, be careful on stairs, as you may be unsteady on your feet. You may resume your regular diet as tolerated. IV site -- slight redness, or tenderness is normal, you can use a warm compress. If tenderness and redness increases or foul drainage occurs, please contact your M. D. Revised 12/08/18 Patient InstructionsPoDoc walker - 10/09/2020 12:28 PM EDT Instruction after leaving the hospital Why you were hospitalized: TIPS Procedure Specific instructions related to your condition: - See TIPS instructions below Follow-Up Appointments: - You have a hospital follow up with your primary care provider, Iliana Hurt APRN, Friday October 16, 2020 11:30 - Dr. Hi's office at [facility] will call you directly to schedule a follow up visit. - We will schedule you for a blood draw, likely at the end of the week. We will notify you when thisis scheduled. Your Inpatient Doctor(s) at [facility]: - Dr. Tatyana Coyne documented in this encounter Medications at Time of Discharge [...] by 0 324 mg (37.5 mg iron) Tablet mouth daily. methylphenidate (RITALIN) 20 Take 20 mg by mouth 0 mg Tablet 3 times daily. Ostomy Supplies (Convatec by Misc.(Non-Drug; 0 Night Drain Container) Misc Combo Route) route. documented as of this encounter Progress Notes Saul Curry RN - 10/09/2020 2:31 PM EDT [facility] Short Stay Unit Discharge Note All relevant discharge milestones have been met by the patent. After Visit Summary and discharge teaching reviewed with the patient. IV access has been discontinued. All personal belongings have been returned to the patient/family upon their departure from the unit.Patient has been discharged to home The patient has been discharged without VNA services. Discharge papers reviewed with pt, has f/u with pcp & at [facility], has script at local pharmacy, verbalized understanding. Pt a & o x4 breathing normally on RA in no apparent distress. Pt ambulates independently, has transportation. Pt to be discharged by wheelchair upon dressing. Yanni Dale RN - 10/09/2020 2:00 PM EDT CARE MANAGEMENT FINAL DISCHARGE NOTE Chart reviewed, care reviewed with primary team and at interdisciplinary rounds. Patient is medically ready for discharge 10/22/20. Needs for Transition of Care Plan for discharge is: Home without needs Agency Referrals: None indicated Transportation: Family in private vehicle. Functional status prior to admission: Independent Current Functional Ability: Stand by assist Current DME: None indicated DME Needed at DC: None indicated Patient is insured through: Primary Insurance: MEDICARE Payor: MEDICARE / Plan: MEDICARE PART A & B / Product Type: *No Product type* / Secondary Insurance: MEDICAID [place] Prescription Coverage: Yes, see above Preferred Pharmacy: See below [id number] - [place], [place] - [address] [place] [address] AT [address] OF [address] [id number] This plan was formulated with input from patient, Janice Silvestre, and team. All are in agreement with plan. Yanni Dale RN [employer] Senior Officer of Care Management Vidal Delgado MD - 10/09/2020 7:41 AM EDT Vascular and Interventional Radiology Inpatient Progress Note Admitted 10/08/2020 Procedure: s/p TIPS creation Post-procedure day: #1 Time of patient encounter: 7:00AM 24 Hour Events: - VSS and WNL. Tolerating light PO without issues. Some soreness of throat (possibly secondary to recent intubation) and right neck incision sites, improved with PRN medication overnight. - AAOx3 this AM, no signs/symptoms of encephalopathy. - No significant lab changes this AM. Last Value 24 Hour Range Temperature 36.8 ??C (98.2 ??F) Temp: [36.4 ??C (97.5 ??F)-36.8 ??C (98.2 ??F)] Heart Rate 89 Heart Rate: [73-89] Blood Pressure 138/58 BP: (138-170)/(58-88) Respiratory Rate 16 Resp: [13-21] SpO2 95 % SpO2: [93 %-98 %] Physical Exam GEN Pleasant female, in NAD CV Warm and well perfused PULM No increased WOB on RA NECK Right neck incision site with dressing CD&I, soft, mild tenderness to palpation Drains/Tubes: N/A Labs: Last 3 wbc, hgb, hct plt Recent Labs 10/09/20 0315 10/08/20 0559 WBC 11.9* 5.6 HGB 13.7 15.0 HCT 40.2 45.1 PLATELET 109* 99* Last 3 Lytes Recent Labs 10/09/205 10/08/20 0559 NA 138 140 K 4.4 3.9 CL 104 106 CO2 24 22 BUN 11 12 CREATININE 0.63* 0.52* Last 3 LFTs Recent Labs 10/09/20 0315 10/08/20 0559 AST 68* 35* ALT 35* 18 ALKPHOS 76 82 BILITOT 1.7* 1.5* BILIDIR 0.7* -- Micro: N/A Imaging: None since the time of the procedure. Assessment & Plan: 54 y.o. 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 TIPS stent balloon dilated to 8 mm, final portosystemic gradient 4-5 mm Hg on conclusion of procedure. No colostomy or periumbilical varices opacified at the time of the procedure. No signs/symptoms on encephalopathy this AM. - OK for discharge from the IR perspective - PRN pain control per the primary team - Follow-up as outpatient with GI (Dr. Hi) and baseline TIPS U/S in 1-2 weeks as outpatient (OKto be done at [facility], which is located closer to the patient). Vidal Delgado MD Diagnostic and Interventional Radiology (PGY 6) Pager No.: [phone] Saul Curry RN - 10/08/2020 6:18 PM EDT Pt a & o x4, feeling tired, but no longer falling asleep between care. Pain remains moderated at5/10, initially at R neck site, dressing CDI, now also has back pain, see MAR. Pt breathing normallyon RA, awaiting arrival of dinner at this time. Pt refused insulin. Pt in no apparent distress. Acceptable urinary output. Likely discharge tomorrow. Taffy will be pt's ride, lives 2 hours away. Peyton Pablo RN - 10/08/2020 12:18 PM EDT 1218 This RN providing break relief. Pt resting eyes closed. Respirations equal and unlabored. No apparent signs of discomfort or distress. Vitals WNL. Continue to monitor. 1236 This RN contacted Interventional Radiology for orders. Awaiting call back. 1239 Pt complaining of nausea. Pt medicated with PRN antiemetics. 1244 Hospital medicine at bedside. Dr. Curry from hospital medicine evaluating patient at this time. Peyton Pablo RN - 10/08/2020 12:15 PM EDT 1144: Pt received from IR Report from team Vital signs stable Placed on monitor and O2 1218: Report to Sheryl HARRELL for meal break 1245: Pt meets criteria for Phase II Tolerating ice chips without n/v Awaiting bed assignment and transfer 1315: Report given to Saul HARRELLeducation dean to short stay 02 Vidal Delgado MD - 10/08/2020 6:58 AM EDT INTERVENTIONAL RADIOLOGY FOCUSED H&P: Procedure: TIPS creation The patient's history and physical exam have been reviewed and completed. There has been no intervalchange from that of the pre-operative history and physical exam done within the last 30 days. Physical Exam: General: Pleasant female, AAOx3 Cardiovascular: Warm and well perfused Pulmonary: No increased WOB on RA The planned procedure (and sedation plan if appropriate) , its benefits and risks, and alternatives were discussed with the patient. The patient consented to the procedure. PRE-SEDATION ASSESSMENT: Sedation Plan: anesthesia Confirm NPO status: Yes Allergies reviewed: Yes Code Status: Attempt Cardiopulmonary Resuscitation (Full Code) documented in this encounter H&P Notes Nicolle Miranda MD - 10/08/2020 1:03 PM EDT Inpatient Hospital Medicine - Admission Note Problem List: Active Hospital Problems Diagnosis ??? S/P TIPS (transjugular intrahepatic portosystemic shunt) Resolved Hospital Problems No resolved problems to display. Active Non-Hospital Problems Diagnosis ??? Hx of colon cancer, stage III ??? H/O colectomy ??? Back pain ID: 54 y.o. Female presents to [facility] for TIPS History of Present Illness: AISHWARYA Rivers is a 54 y.o. woman with PMH of DAMON cirrhosis with portal HTN and peristomal varices, colon CA s/p colectomy 2019, pre-diabetes, obesity admitted to [facility] for monitoring post TIPS procedure. Patient is followed by Dr. Hi at [facility] and was referred to IR for TIPS for management of peristomal varices. The procedure was performed on 10/08/20 without complication and with reduction in portal venous pressures. Patient was evaluated in the PACU post procedure. She was somnolent from anesthesia and not fully participatory in interview. She noted she was not feeling good andnauseated and had received compazine. She also c/o neck soreness at the site of the procedure for which she received IV dilaudid in the PACU. Review of Systems: Review of Systems Unable to perform ROS: Mental status change Past Medical and Surgical History: Past Medical History: Diagnosis Date ??? H/O colectomy 06/22/2013 History reviewed. No pertinent surgical history. Prior To Admission Medications: Medications Prior to Admission Medication Sig Dispense Refill Last Dose ??? metFORMIN (Glucophage) 500 mg Tablet Take 500 mg by mouth 2 times daily (with meals). 1,000 mg twice a day 10/07/2020 at Unknown time ??? ferrous gluconate (Fergon) 324 mg (37.5 mg iron) Tablet Take 324 mg by mouth daily. 10/07/2020 atUnknown time ??? methylphenidate (RITALIN) 20 mg Tablet Take 20 mg by mouth 3 times daily. 10/07/2020 at Unknown time ??? Ostomy Supplies (Convatec Night Drain Container) Misc by [facility].(Non-Drug; Combo Route) route. 10/07/2020 at Unknown time ??? HYDROcodone-acetaminophen 5-325 mg per tablet Take 1-1.5 tablets by mouth every 6 hours as needed. More than a month at Unknown time ??? clonazePAM (KLONOPIN) 1 mg tablet Take 1 mg by mouth 2 times daily. More than a month at Unknowntime Allergies: Allergies Allergen Reactions ??? Codeine Other (See Comments) surgery ??? Ibuprofen Other (See Comments) surgery Family History: History reviewed. No pertinent family history. Social History and Habits: Social History Socioeconomic History ??? Marital status: Single Spouse name: Not on file ??? Number of children: Not on file ??? Years of education: Not on file ??? Highest education level: Not on file Occupational History ??? Not on file Tobacco Use ??? Smoking status: Never Smoker ??? Smokeless tobacco: Never Used Substance and Sexual Activity ??? Alcohol use: Not Currently ??? Drug use: Never ??? Sexual activity: Not on file Other Topics Concern ??? Not on file Social History Narrative ??? Not on file Social Determinants of Health Financial Resource Strain: ??? Difficulty of Paying Living Expenses: Not on file Food Insecurity: ??? Worried About Running Out of Food in the Last Year: Not on file ??? Ran Out of Food in the Last Year: Not on file Transportation Needs: ??? Lack of Transportation (Medical): Not on file ??? Lack of Transportation (Non-Medical): Not on file Physical Activity: ??? Days of Exercise per Week: Not on file ??? Minutes of Exercise per Session: Not on file Immunizations: There is no immunization history on file for this patient. Physical Exam: Last Set of Vitals and range of vitals over past 24 hours: Last value Range last 24 hrs Temperature Temp: 36.4 ??C (97.5 ??F) Temp: [36.4 ??C (97.5 ??F)-36.6 ??C (97.9 ??F)] Heart Rate Heart Rate: 77 Heart Rate: [62-88] Blood Pressure BP: 164/74 BP: (133-170)/(61-88) Respiratory Rate Resp: 16 Resp: [13-19] SpO2 SpO2: 95 % SpO2: [94 %-98 %] Body mass index is 36.22 kg/m??. Physical Exam Vitals and nursing note reviewed. Constitutional: General: She is not in acute distress. Appearance: She is not toxic-appearing or diaphoretic. Comments: Somnolent but arousable to voice and answering questions HENT: Head: Normocephalic and atraumatic. Nose: No congestion. Mouth/Throat: Mouth: Mucous membranes are moist. Pharynx: No oropharyngeal exudate. Eyes: General: No scleral icterus. Extraocular Movements: Extraocular movements intact. Pupils: Pupils are equal, round, and reactive to light. Cardiovascular: Rate and Rhythm: Normal rate and regular rhythm. Heart sounds: No murmur heard. Comments: R IJ site covered by dressing, c/d/i Pulmonary: Effort: Pulmonary effort is normal. No respiratory distress. Breath sounds: Normal breath sounds. No wheezing or rales. Abdominal: General: Abdomen is flat. Bowel sounds are normal. There is no distension. Palpations: Abdomen is soft. Tenderness: There is no abdominal tenderness. There is no guarding. Musculoskeletal: General: Normal range of motion. Cervical back: Normal range of motion and neck supple. Right lower leg: No edema. Left lower leg: No edema. Skin: General: Skin is warm and dry. Findings: No rash. Neurological: General: No focal deficit present. Laboratory (Last 24 Hours): Recent Results (from the past 24 hour(s)) Hemogram Result Value Ref Range WBC 5.6 4.0 - 9.5 x10(3)/mcL RBC 4.73 4.00 - 5.21 x10(6)/mcL Hemoglobin 15.0 11.7 - 15.5 gm/dL Hematocrit 45.1 35.7 - 45.8 % MCV 95.3 (H) 82.6 - 94.4 fL MCH 31.7 27.1 - 32.0 pg MCHC 33.3 31.7 - 35.0 gm/dL Platelets 99 (L) 145 - 357 x10(3)/mcL RDWSD 51.6 (H) 37.0 - 46.0 fL RDWCV 14.5 (H) 11.5 - 14.1 % MPV 11.8 7.6 - 12.9 fL nRBC % Auto 0.0 % nRBC Abs Auto 0.000 0.000 - 0.000 x10(3)/mcL Comprehensive metabolic panel (non-fasting) Result Value Ref Range Glucose Lvl 137 65 - 199 mg/dL BUN 12 8 - 18 mg/dL Creatinine 0.52 (L) 0.70 - 1.20 mg/dL Sodium 140 135 - 145 mmol/L Potassium 3.9 3.5 - 5.0 mmol/L Chloride 106 98 - 107 mmol/L CO2 22 22 - 31 mmol/L Anion Gap 12 5 - 15 mmol/L Calcium 9.2 8.5 - 10.5 mg/dL Total Protein 7.4 6.1 - 8.0 gm/dL Albumin 4.1 3.2 - 5.2 gm/dL AST 35 (H) 0 - 30 unit/L ALT 18 0 - 30 unit/L Alk Phos 82 35 - 105 unit/L Total Bilirubin 1.5 (H) 0.2 - 1.3 mg/dL Estimated GFR 108 >=60 mL/min/1.73 m?? Prothrombin Time Result Value Ref Range PT 14.4 (H) 9.4 - 12.5 sec INR 1.3 POCT Glucose Result Value Ref Range POC Glucose 142 65 - 199 mg/dL * Radiology: TIPS 10/08/20 Brief description of the procedure: ?? US-guided access of the right IJV x2 ?? Catheter selection of the right hepatic vein, CO2 portogram ?? Transcatheter IVUS from the IVC and the right atrium ?? TIPS creation, with 8-10 mm Viatorr stent 8 cm covered from the right portal vein to the IVC. Portal venous aspect of the stent reinforced with a 10 mm x 40 mm LifeStar stent. ?? Pressure transduction to determine portosystemic gradient ?? Portogram with CO2 and contrast injection ?? Findings of the procedure: ?? Patient and easily compressible right IJV by ultrasound ?? Pressure measurements following CYANIDE POT HARDENER of parenchymal tract to 8 mm: Main portal vein 15 mm Hg, right atrium 5 mm Hg, portosystemic gradient 10 mm Hg ?? 8-10 mm Viatorr stent 8 cm covered with 10 mm x 40 mm LifeStar stent reinforcing at portal venousaspect (stent extends from right portal vein to IVC), entirety of stent balloon dilated to 8 mm ?? Pressure measurements following TIPS creation and CYANIDE POT HARDENER to 8 mm: Main portal vein 12 mm Hg, right atrium 7-8 mm Hg, portosystemic gradient 4-5 mm Hg ?? IVUS showed tip of TIPS stent terminating at the hepatic vein-IVC confluence. ?? Portogram showed preferential flow from the portal vein through the TIPS to the right atrium. No opacification of varices in the expected region of the ostomy or the umbilicus. ?? EBL: <20 mL ?? Specimens: _N/A_ ?? Complications: No immediate ?? Plan/Disposition: - To PACU with Anesthesia. Admit to follow with Hospital Medicine (pager [phone]) - signout provided tothe admitting team. IR will also follow. Assessment: Janice Rivers is a 54 y.o. woman with PMH of DAMON cirrhosis with portal HTN and peristomal varices, colon CA s/p colectomy 2019, pre-diabetes, obesity admitted to [facility] for monitoring post TIPS procedure. Will plan to monitor overnight for evidence of hepatic encephalopathy, bleeding, or other immediate complication. Currently she is hemodynamically stable and waking up from anesthesia. #Post TIPS monitoring #H/o DAMON cirrhosis with portal HTN and peristomal bleeding - labs ordered for tomorrow AM - monitor for evidence of HE, dyspnea, bleeding - pain control with tylenol and oxycodone PRN #H/o pre DM - hold metformin - SSI Plan: Admit to hospital medicine for observation DVT Prophylaxis - anticipated stay <48 hours If currently a smoker - advised about smoking cessation and will provide smoking cessation material and support. Pneumovax and Influenza Immunizations given as needed. Discussed Advanced Directives and Code Status. The patient wishesto be Full Code. A copy of this document will be sent to the patient's Primary Care Physician and/or Referring Physician. Nicolle Miranda MD 10/08/2020 documented in this encounter Miscellaneous Notes Plan of Care - Manuel Wang RN - 10/09/2020 2:50 AM EDT OUTCOME EVALUATION NOTE: OUTCOME SUMMARY: Patient alert and oriented throughout shift. Vital signs stable. Patient able to ambulate to bathroom with no issue. Pain well controlled. Dressing to neck clean, dry and intact. Call monsalve within reachand patient ringing appropriately. Will continue to monitor. PLAN MOVING FORWARD: Mobilization, discharge INDIVIDUALIZED FALL PREVENTION INTERVENTIONS: Patient-specific fall risk factors per assessment: Recent surgery Assistance: SBA Supervision: Arms reach Surveillance: Bed locked in low position, call monsalve within reach, purposeful hourly rounding, clutter free environment, bed/chair alarm on Patient-specific fall prevention interventions for sensory deficits provided: Yes CPG GOAL OUTCOME EVALUATION: Continue care plan as documented. documented in this encounter Plan of Treatment Scheduled Referrals Name Type Priority Associated Diagnoses Order S chedule Referral to Outpatient Routine S/P TIPS Ordered: Gastroenterology Referral (transjugular 10/09/2020 intrahepatic portosystemic shunt) documented as of this encounter Procedures Procedure Name Priority Date/Time Associated Comments Diagnosis POCT GLUCOSE Routine 10/09/2020 11:22 Results for this AM EDT procedure are i n the results section. POCT GLUCOSE Routine 10/09/2020 7:24 AM Results f or this EDT procedure are i n the results section. HEMOGRAM Routine 10/09/2020 3:15 AM Results f or this EDT procedure are i n the results section. DIFFERENTIAL, Routine 10/09/2020 3:15 AM Results for this AUTOMATED EDT procedure are i n the results section. HC PROTHROMBIN TIME Routine 10/09/2020 3:15 AM Re sults for this EDT procedure are i n the results section. HC CBC,PLT & AUTO DIFF Routine 10/09/2020 3:15 AM EDT HEPATIC FUNCTION PANEL Routine 10/09/2020 3:15 AM Results for this EDT procedure are i n the results section. BASIC METABOLIC PANEL Routine 10/09/2020 3:15 AM Results for this (NON-FASTING) EDT procedure are in the results section. POCT GLUCOSE Routine 10/08/2020 11:46 Results for this AM EDT procedure are i n the results section. @TRANSJUGULAR 10/08/2020 7:35 AM Hepatic cirrhosis INTRAHEPATIC PORTAL EDT SHUNT (WRVU 16.97) HC VENIPUNCTURE Routine 10/08/2020 5:59 AM Result s for this EDT procedure are i n the results section. HC PROTHROMBIN TIME Routine 10/08/2020 5:59 AM Re sults for this EDT procedure are i n the results section. COMPREHENSIVE Routine 10/08/2020 5:59 AM Results for this METABOLIC PANEL EDT procedure ar e in (NON-FASTING) the results section. documented in this encounter Results POCT Glucose (10/09/2020 11:22 AM EDT) athologist Signature POC Glucose 174 65 - [facility] Comment: Supplemental ranges: <140 mg/dL before meals <180 mg/dL all other times of the day Specimen Anatomical Collection Method Collection Time Receive d Time (Source) Location / / Volume Laterality Blood 10/09/2020 11:22 10/09/2020 AM EDT 11:22 AM EDT Alek Berman MD POINT OF CARE TEST ORDERABLE S Performing Organization Address City/State/ZIP Code Phon e Number [address] POCT Glucose (10/09/2020 7:24 AM EDT) athologist Signature POC Glucose 164 65 - [facility] Comment: Supplemental ranges: <140 mg/dL before meals <180 mg/dL all other times of the day Specimen Anatomical Collection Method Collection Time Receive d Time (Source) Location / / Volume Laterality Blood 10/09/2020 7:24 AM 7:24 EDT AM EDT Alek Berman MD POINT OF CARE TEST ORDERABLE S Performing Organization Address City/[facility]/ZIP Code Phon e Number [address] (ABNORMAL) Differential, Automated (10/09/2020 3:15 AM EDT) [facility] gist Method Time Signature Neutrophils % 88.0 % [facility] Neutr Abs (ANC) 10.48 (H) 1.70 - [facility] 6.10 [facility] x10(3)/[facility] L LABORATORY Lymphocytes % 5.9 % [facility] Lymphocytes Abs 0.7 (L) 0.9 - 3.2 [facility] x10(3)/[facility] LABORATORY Monocytes % 5.4 % [facility] Monocyte Abs 0.6 0.3 - 0.9 [facility] x10(3)/[facility] LABORATORY Eosinophils % 0.0 % [facility] Eosinophils Abs 0.0 0.0 - 0.4 [facility] x10(3)/[facility] LABORATORY Basophils % 0.2 % [facility] Basophils Abs 0.0 0.0 - 0.1 [facility] x10(3)/[facility] LABORATORY Immature Gran % 0.50 % [facility] Comment: Immature granulocytes(IG's)percentage an d absolute count will include metamyelocytes, myelocytes, and promyelo cytes. Blood smears from CBCs yielding IG's will be scanned manually for concor dance. If this scan disagrees with the automated IG or if promyelocytes are not ed, a manual differential will be performed. Lisset Gran Abs 0.06 (H) 0.00 - 0.04 x10(3)/[facility] LABORATORY Specimen Anatomical Collection Method Collection Time Receive d Time (Source) Location / / Volume Laterality Blood 10/09/2020 3:15 AM 3:19 EDT AM EDT Resulting Agency Comment Spec In Lab Nicolle Miranda MD HEMATOLOGY ORDERABLES Performing Organization Address City/State/[place] [address] (ABNORMAL) Hemogram (10/09/2020 3:15 AM EDT) Analysis Performed At Patho logist Time Signature WBC 11.9 (H) 4.0 - 9.5 [facility] x10(3)/[facility] LABORATORY RBC 4.33 4.00 - [facility] [address] [facility] x10(6)/[facility] LABORATORY Hemoglobin 13.7 11.7 - [facility] 15.5 gm/dL [facility] Hematocrit 40.2 35.7 - [facility] 45.8 % [facility] MCV 92.8 82.6 - [facility] 94[facility]4 [facility]ATORY MCH 31.6 27.1 - [facility] pg [facility] MCHC 34.1 31.7 - [facility] 35.0 gm/dL [facility] Platelets 109 (L) 145 - 357 [facility] x10(3)/[facility] LABORATORY RDWSD 48.8 (H) 37.0 - [facility] 46.0 [facility] LABORATORY RDWCV 14.1 11.5 - [facility] 14.1 % [facility] MPV 11.4 7.6 - 12.9 [facility] LABORATORY nRBC % Auto 0.0 % [facility] nRBC Abs Auto 0.000 0.000 - [facility] 0.[address] [facility] x10(3)/[facility] LABORATORY Specimen Anatomical Collection Method Collection Time Receive d Time (Source) Location / / Volume Laterality Blood 10/09/2020 3:15 AM 3:19 EDT AM EDT Resulting Agency Comment Spec In Lab Nicolle Miranda MD HEMATOLOGY ORDERABLES Performing Organization Address City/State/[place] [address] (ABNORMAL) Basic Metabolic Panel (non-fasting) (10/09/2020 3:15 AM EDT) athologist Signature Glucose Lvl 167 65 - 199 [facility] mg/dL [facility] Comment: Diabetes: >=200 mg/dL plus symp toms BUN 11 8 - 18 mg/dL [facility] Creatinine 0.63 (L) 0.70 - 1.20 mg/dL [facility] Sodium 138 135 - 145 mmol/L [facility] Potassium 4.4 3.5 - 5.0 mmol/L [facility] Comment: Please note: ??Patients with WBC >100,00 0 may have falsely elevated Potassium levels. ??For accurate Potassium quantif ication in these patients send serum separator tube (gold top) for subsequent determinations. ??Contact the Clinical Chemistry Laboratory if there are any qu estions. Chloride 104 98 - 107 mmol/L [facility] CO2 24 22 - 31 mmol/L [facility] Anion Gap 10 5 - 15 mmol/L [facility] Calcium 8.5 8.5 - 10.5 mg/dL [facility] Estimated GFR 102 >=60 mL/min/1.73 m?? [facility] Comment: This patient? s estimated glomerular filtration rate (eGFR) is between 102 mL/min/1.73 m2 (patients with less muscl e mass) and 118 mL/min/1.73 m2 (patients with more muscle mass) as dete rmined by the CKD-EPI equation. Assessment of eGFR is not appropriate wh en creatinine concentrations are rapidly changing. For clinical decisions where creatinine clearance will affect therapy, a 24-hour urine creatinine kiarra montse may be advised. Assignment of CKD stage 1 - 5 for patien ts with an eGFR near the transition point between stages may be based on cli nical assessment of muscle mass and symptoms in addition to eGFR. Specimen Anatomical Collection Method Collection Time Receive d Time (Source) Location / / Volume Laterality Blood 10/09/2020 3:15 AM 3:19 EDT AM EDT Resulting Agency Comment Spec In Lab Nicolle Miranda MD CHEMISTRY ORDERABLES Performing Organization Address City/State/[place] [address] (ABNORMAL) Prothrombin Time (10/09/2020 3:15 AM EDT) P athologist Signature PT 17.5 (H) 9.4 - 12.5 [facility] LABORATORY INR 1.5 [facility] Comment: An INR <2.0 indicates adequate procoagul ant activity for hemostasis in most patients without underlying bleeding dis orders, though the INR may not adequately reflect hemostatic capacity i n patients with liver disease and synthetic impairment. The recommended ta rget INR range for therapeutic anticoagulation is 2.0 ? 3.0 for most applications, though lower and higher ranges may be appropriate depending on c linical circumstances. Specimen Anatomical Collection Method Collection Time Receive d Time (Source) Location / / Volume Laterality Blood 10/09/2020 3:15 AM 3:19 EDT AM EDT Resulting Agency Comment Spec In Lab Nicolle Miranda MD HEMATOLOGY ORDERABLES Performing Organization Address City/[facility]/[place] [address] (ABNORMAL) Hepatic Function Panel (10/09/2020 3:15 AM EDT) athologist Signature Total Protein 6.4 6.1 - 8.0 [facility] gm/dL [facility] Albumin 3.5 3.2 - 5.2 [facility] gm/dL [facility] AST 68 (H) 0 - 30 [facility] unit/L [facility] Comment: result rechecked-cecile ALT 35 (H) 0 - 30 unit/L [facility] Comment: result rechecked-cecile Alk Phos 76 35 - 105 unit/L [facility] Total Bilirubin 1.7 (H) 0.2 - 1.3 mg/dL [facility] Bili, Direct 0.7 (H) 0.0 - 0.3 mg/dL [facility] Specimen Anatomical Collection Method Collection Time Receive d Time (Source) Location / / Volume Laterality Blood 10/09/2020 3:15 AM 3:19 EDT AM EDT Resulting Agency Comment Spec In Lab Nicolle Miranda MD CHEMISTRY ORDERABLES Performing Organization Address City/[facility]/[place] [address] POCT Glucose (10/08/2020 11:46 AM EDT) athologist Signature POC Glucose 142 65 - 199 [facility] mg/dL [facility] Comment: Supplemental ranges: <140 mg/dL before meals <180 mg/dL all other times of the day Specimen Anatomical Collection Method Collection Time Receive d Time (Source) Location / / Volume Laterality Blood 10/08/2020 11:46 10/08/2020 AM EDT 11:46 AM EDT Alek Berman MD POINT OF CARE TEST ORDERABLE S Performing Organization Address City/[facility]/ZIP Code Phon e Number [place] [id number] HOSP[address] LAB[address]ORY [address] (ABNORMAL) Prothrombin Time (10/08/2020 5:59 AM EDT) P athologist Signature PT 14.4 (H) 9.4 - 12.5 [facility] LABORATORY INR 1.3 [facility] Comment: An INR <2.0 indicates adequate procoagul ant activity for hemostasis in most patients without underlying bleeding dis orders, though the INR may not adequately reflect hemostatic capacity i n patients with liver disease and synthetic impairment. The recommended ta rget INR range for therapeutic anticoagulation is 2.0 ? 3.0 for most applications, though lower and higher ranges may be appropriate depending on c linical circumstances. Specimen Anatomical Collection Method Collection Time Receive d Time (Source) Location / / Volume Laterality Blood 10/08/2020 5:59 AM 6:01 EDT AM EDT Resulting Agency Comment Spec In Lab Rob Huitron MD HEMATOLOGY ORDERABLES Performing Organization Address City/[facility]/ZIP Code Phon e Number [place] [phone]OSP[address] LAB[address]ORY Drive (ABNORMAL) Comprehensive metabolic panel (non-fasting) (10/08/2020 5:59 AM EDT) P athologist Signature Glucose Lvl 137 65 - 199 [facility] mg/dL [facility] Comment: Diabetes: >=200 mg/dL plus symp toms BUN 12 8 - 18 mg/dL [facility] Creatinine 0.52 (L) 0.70 - 1.20 mg/dL [facility] Sodium 140 135 - 145 mmol/L [facility] Potassium 3.9 3.5 - 5.0 mmol/L [facility] Comment: Please note: ??Patients with WBC >100,00 0 may have falsely elevated Potassium levels. ??For accurate Potassium quantif ication in these patients send serum separator tube (gold top) for subsequent determinations. ??Contact the Clinical Chemistry Laboratory if there are any qu estions. Chloride 106 98 - 107 mmol/L [facility] CO2 22 22 - 31 mmol/L [facility] Anion Gap 12 5 - 15 mmol/L [facility] Calcium 9.2 8.5 - 10.5 mg/dL [facility] Total Protein 7.4 6.1 - 8.0 gm/dL [facility] Albumin 4.1 3.2 - 5.2 gm/dL [facility] AST 35 (H) 0 - 30 unit/L [facility] ALT 18 0 - 30 unit/L [facility] Alk Phos 82 35 - 105 unit/L [facility] Total Bilirubin 1.5 (H) 0.2 - 1.3 mg/dL [facility] Estimated GFR 108 >=60 mL/min/1.73 m?? [facility] Comment: This patient? s estimated glomerular filtration rate (eGFR) is between 108 mL/min/1.73 m2 (patients with less muscl e mass) and 126 mL/min/1.73 m2 (patients with more muscle mass) as dete rmined by the CKD-EPI equation. Assessment of eGFR is not appropriate wh en creatinine concentrations are rapidly changing. For clinical decisions where creatinine clearance will affect therapy, a 24-hour urine creatinine kiarra willard may be advised. Assignment of CKD stage 1 - 5 for patien ts with an eGFR near the transition point between stages may be based on cli nical assessment of muscle mass and symptoms in addition to eGFR. Specimen Anatomical Collection Method Collection Time Receive d Time (Source) Location / / Volume Laterality Blood 10/08/2020 5:59 AM 6:01 EDT AM EDT Resulting Agency Comment Spec In Lab Rob Huitron MD CHEMISTRY ORDERABLES Performing Organization Address City/State/[place] [address] (ABNORMAL) Hemogram (10/08/2020 5:59 AM EDT) Analysis Performed At Patho logist Time Signature WBC 5.6 4.0 - 9.5 [facility](3[facility] LABORATORY RBC 4.73 4.00 - [facility] [address] [facility] x10(6)/[facility] LABORATORY Hemoglobin 15.0 11.7 - [facility] 15.[facility] gm/dL [facility] Hematocrit 45.1 35.7 - [facility] 45.8 % [facility] MCV 95.3 (H) 82.6 - [facility] 94.4 [facility] LABORATORY MCH 31.7 27.1 - [facility] 32.0 pg [facility] MCHC 33.3 31.7 - [facility] 35.0 gm/dL [facility] Platelets 99 (L) 145 - 357 [facility] x10(3)/[facility] LABORATORY RDWSD 51.6 (H) 37.0 - [facility] 46.0 [facility] LABORATORY RDWCV 14.5 (H) 11.5 - [facility] 14.1 % [facility] MPV 11.8 7.6 - 12.9 [facility] LABORATORY nRBC % Auto 0.0 % [facility] nRBC Abs Auto 0.000 0.000 - [facility] 0.000 [facility] x10(3)/[facility] LABORATORY Specimen Anatomical Collection Method Collection Time Receive d Time (Source) Location / / Volume Laterality Blood 10/08/2020 5:59 AM 6:01 EDT AM EDT Resulting Agency Comment Spec In Lab Rob Huitron MD HEMATOLOGY ORDERABLES Performing Organization Address City/State/[place] [address] documented in this encounter Visit Diagnoses Diagnosis S/P TIPS (transjugular intrahepatic port osystemic shunt) Other postprocedural status documented in this encounter Admitting Diagnoses Diagnosis S/P TIPS (transjugular intrahepatic port osystemic shunt) Other postprocedural status documented in this encounter Administered Medications Inactive Administered Medications - up to 3 most recent administrations Medication Order MAR Action Action Date Dose Rate Site acetaminophen (Tylenol) tablet 650 mg 650 mg, Oral, EVERY 8 HOURS PRN, Startin g on Wed10/08/20 at 1409, Until Wed10/09/20 at 1710, Pain, Fever, Headaches, Maximum dose of acetaminophen is 2000 mg from all sources in 24 hours. When ordered for pa in, acetaminophen should be given even when other ordered pain medications are indicated., Routine dextrose 10% infusion 250 mL, at 1,000 mL/hr, Intravenous, PETER RY 30 MIN PRN, Starting on Wed10/08/20 at 1343, Until Wed10/09/20 at 1710, For BG 50-70 mg/dL: Oral treatment preferred:?? If able to drink, give 120 mL Juice or R egular (not diet) soda OR If NPO, give 15 gram glucose 40% oral gel massaged into buccal mucosa OR if unconscious or uncooperative, give 25 gram (250 mL) Dex trose 10% IV over 15 minutes per protocol OR, if no IV access, 1 mg Glucagon IM. * * For BG less than 50 mg/dL: Oral treatment preferred:?? If able to drink, give 240 mL Juice or Regular (not diet) soda OR If NPO, give 30 gram glucose 40% oral gel m assaged in buccal mucosa OR if unconscious or uncooperative, give 25 gram (250 mL) Dextrose 10% I V over 15 minutes per protocol OR, if no IV access, 1 mg Glucagon IM. Rech deejay BG in 30 minutes. May repeat juice/soda, gel, dextrose or gluc agon once per episode. For persistent hypoglycemia, consider longer-acting treatment for the duration of the active insulin. ferrous gluconate (Fergon) tablet 324 mg Given 10/09/2020 9:06 AM EDT 324 mg 324 mg, Oral, DAILY, First dose on Wed10/09/20 at 0900, Until Discontinued, Routine glucagon (Glucagen) (1 mg/mL) injection solution 1 mg 1 mg, Intramuscular, EVERY 30 MIN PRN, S tarting on Wed10/08/20 at 1343, Until Wed10/09/20 at 1710, Low blood sugar, For BG 50-70 mg/d L: Oral treatment preferred:?? If able to drink, give 120 mL Juice or Regular (not diet) soda OR If NPO, give 15 gram glucose 40% oral gel massaged into b uccal mucosa OR if unconscious or uncooperative, give 25 gr am (250 mL) Dextrose 10% IV over 15 minutes per protocol OR, if no IV access, 1 mg G lucagon IM. For BG less than 50 mg/dL: Oral treatment preferred:?? If able to drink, give 240 mL Juice or Regular (not diet) soda OR If NPO, give 30 gram gluco se 40% oral gel massaged in buccal mucosa OR if unconscious or uncooperative, give 25 gram (250 mL) Dextrose 10% IV over 15 minutes per protocol OR, if no IV access, 1 mg Glucago n IM. Recheck BG in 30 minutes. May repeat juice/soda, gel, dex trose or glucagon once per episode. For persistent hypoglycemia, consider longer -acting treatment for the duration of the active insulin., Routine glucose (GLUTOSE) 40% oral geL 15-30 g, Buccal, EVERY 30 MIN PRN, Starting on 09/22 at 1343, Until Wed10/09/20 at 1710, Low blood sugar, For BG 50-70 mg/d L: Oral treatment preferred:?? If able to drink, give 120 mL Juice or Regular (not diet) soda OR If NPO, give 15 gram glucose 40% oral gel massaged into b uccal mucosa OR if unconscious or uncooperative, give 25 gr am (250 mL) Dextrose 10% IV over 15 minutes per protocol OR, if no IV access, 1 mg G lucagon IM. For BG less than 50 mg/dL: Oral treatment preferred:?? If able to drink, give 240 mL Juice or Regular (not diet) soda OR If NPO, give 30 gram gluco se 40% oral gel massaged in buccal mucosa OR if unconscious or uncooperative, give 25 gram (250 mL) Dextrose 10% IV over 15 minutes per protocol OR, if no IV access, 1 mg Glucago n IM. Recheck BG in 30 minutes. May repeat juice/soda, gel, dex trose or glucagon once per episode. For persistent hypoglycemia, consider longer -acting treatment for the duration of the active insulin. 1 tube contains 15 grams of glucose (n et weight of tube = 37.5 grams., Routine HYDROmorphone (Dilaudid) (2 mg/mL) Given 10/08/2020 12:13 PM EDT 0.4 mg multi-dose injection solution 0.4 mg 0.4 mg, Intravenous, EVERY 10 MIN PRN, Starting on Wed10/08/20 at 1206, Until Wed10/08/20 at 1335, Pain, For Moderate to Severe Pain (6-10 out of 10), Hold for respiratory rate less than 10 per minute. Maximum dose 3 mg over one hour including administrations in the OR. If multiple pain medications are ordered, start with HYDROmorphone or morphine and use fentaNYL for breakthrough pain, PACU Recovery, Routine insulin lispro (HumaLOG;Admelog) (100 Given 10/09/2020 11:27 AM EDT 1 Units unit/mL) subcutaneous injection vial 1-5 Units 1-5 Units, Subcutaneous, 3 TIMES DAILY BEFORE MEALS, First dose on Wed10/08/20 at 1630, Until Discontinued, CORRECTION BOLUS [1-4 Units] Sensitive Sliding Scale (BG in mg/dL): Correction factor 40 (1 unit of insulin is expected to drop the glucose 40 mg/dL) BG 160 - 200 Give 1 unit BG 201 - 240 Give 2 units BG 241 - 280 Give 3 units BG greater than 280, give 4 units and recheck BG in 2 hours. - If recheck BG is LESS than 280, give no insulin and resume schedule - If recheck BG is GREATER than 280, give 4 units and repeat BG in 2 hours (no more than 3 times) & call for new insulin orders. DO NOT hold if NPO, unless specifically directed to do so by written order. Per Blood Glucose Monitoring Policy, re-check a BG of > 240 mg/dL in 2 hours., Routine lactated ringers infusion New Bag 10/08/2020 7:35 AM EDT 1,000 mL, at 100 mL/hr, Intravenous, CONTINUOUS, Starting on Wed10/08/20 at 0700, Until Wed10/08/20 at 1335, Day of Surgery (Day of Procedure) New Bag 10/08/2020 7:20 AM EDT 1,000 mLs 100 mL/hr lidocaine (Xylocaine) 1% (10 mg/mL) injection 3 Given 10/08/2020 7:20 AM EDT 3 mg mg 3 mg (0.3 mL), Subcutaneous, ONCE PRN, 1 dose, Starting on Wed10/08/20 at 0642, Until Wed10/08/20 at 0720, for discomfort with PIV insertion, Day of Surgery (Day of Procedure), Routine ondansetron (pf) (Zofran) (2 mg/mL) inje ction 4-8 mg 4-8 mg, Intravenous, EVERY 8 HOURS PRN, Starting on Wed10/08/20 at 1343, Until Wed10/09/20 at 1710, Nausea, Start with 4mg and if ineffective in 30 minutes, give an additional 4mg If multiple antiemetic s are ordered, give ondansetron first. ondansetron (Zofran) tablet 4-8 mg 4-8 mg, Oral, EVERY 8 HOURS PRN, Startin g on Wed10/08/20 at 1343, Until Wed10/09/20 at 1710, Nausea, Vomiting, If multiple antiemetics are ordered, use ondansetron first. PO Preferred. If patient unable to take PO, may give IV if ordered. Start with 4mg and if ineffective in 45 minutes, give an add itional 4mg. If unable to take PO, may give IV., Routine oxyCODONE (Roxicodone) tablet 5 mg Given 10/09/2020 10:25 AM EDT 5 mg 5 mg, Oral, EVERY 4 HOURS PRN, Starting on Wed10/08/20 at 1411, Until Wed10/09/20 at 1710, Pain, Routine Given 10/09/2020 3:33 AM EDT 5 mg Given 10/08/2020 5:17 PM EDT 5 mg prochlorperazine (Compazine) (5 mg/mL) Given 10/08/2020 12:39 PM EDT 5 mg injection 5 mg 5 mg, Intravenous, EVERY 30 MIN PRN, 2 doses, Starting on Wed10/08/20 at 1206, Until Wed10/08/20 at 1335, Nausea, Maximum total dose of 10 mg (including OR administration). If multiple antiemetics ordered, use ondansetron first and if ineffective use prochlorperazine second and if ineffective use promethazine, PACU Recovery, Routine documented in this encounter Active and Recently Administered Medications Times are shown in EDT. Scheduled Medication Order 10/07/2020 10/08/2020 10/09/2020 ampicillin-sulbactam (Unasyn) 3 g vial a ttach to sodium chloride 0.9% 100 mL Mini-Bag Plus (COMPLETED) 0751 (New Bag - Provider: Ganesh Coon) 3 g, Intravenous, ONCE, 1 dose, On Wed at 0700, Administer over 30 Minutes, Warning Vesicant/Irritant Medication , Day of Surgery (Day of Procedure), Indication for (Active or Suspected): Prophylaxis ferrous gluconate (Fergon) tablet 324 mg 09 (Given - Provider: Saul Curry RN) 324 mg, Oral, DAILY, First dose on Wed at 0900, Until Discontinued, Routine insulin lispro (HumaLOG;Admelog) (100 un it/mL) subcutaneous injection vial 1-5 Units(Linked Group 1) 1702 (Not Given - Provider: Saul Curry RN - Reason: Patient/family refused) 0730 (Not Given - Provider: Matilda cade LPN - Reason: Patient/family refused)1127 (Given - Provider: Saul Curry RN) 1-5 Units, Subcutaneous, 3 TIMES DAILY B EFORE MEALS, First dose on Wed10/08/20 at 1630, Until Discontinued, CORRECTION BOLUS [1-4 Units] Sensitive Sliding Scale (BG in mg/dL): Correction factor 40 ( 1 unit of insulin is expected to drop th e glucose 40 mg/dL) BG 160 - 200 Give 1 unit BG 201 - 240 Give 2 units BG 241 - 280 Give 3 units BG greater than 280, give 4 units and recheck BG in 2 hours. - If recheck BG is LESS than 280, give no in sulin and resume schedule - If recheck BG is GREATER than 280, give 4 units and repeat BG in 2 hours (no more than 3 times) & call for new insulin orders. DO NOT hold if NPO, unless specifically dir ected to do so by written order. Per Blood Glucose Monitoring Policy, re-check a BG of > 240 mg/dL in 2 hours., Routine Continuous Medication Order 10/07/2020 10/08/2020 10/09/2020 lactated ringers infusion (CANCELED) 072 0 (New Bag - Provider: Jossy Farias, RN)0734 (Paused - Provider: Ganesh Coon - Comment: Switch to gravity)0735 (New Bag - Provider: Ganesh Coon)1108 (Anesthesia Volume Adjustment - Provider: Ganesh Coon) 1,000 mL, at 100 mL/hr, Intravenous, CON TINUOUS, Starting on Wed10/08/20 at 0700, Until Wed10/08/20 at 1335, Day of Surgery (Day of Procedure) 1435 (Stopped - Provider: Saul Curry RN) PRN Medication Order 10/07/2020 10/08/2020 10/09/2020 acetaminophen (Tylenol) tablet 650 mg 650 mg, Oral, EVERY 8 HOURS PRN, Startin g on Wed10/08/20 at 1409, Until Wed10/09/20 at 1710, Pain, Fever, Headaches, Maximum dose of acetaminophen is 2000 mg from all sources in 24 hours. When ordered f or pain, acetaminophen should be given e all when other ordered pain medications are indicated., Routine dextrose 10% infusion(Linked Group 2) 250 mL, at 1,000 mL/hr, Intravenous, PETER RY 30 MIN PRN, Starting on Wed10/08/20 at 1343, Until Wed10/09/20 at 1710, For BG 50-70 mg/dL: Oral treatment preferred:?? If able to drink, give 120 mL Juice or Regular (not diet) soda OR If NPO, gi ve 15 gram glucose 40% oral gel massaged into buccal mucosa OR if unconscious or uncooperative, give 25 gram (250 mL) Dextrose 10% IV over 15 minutes per protocol OR, if no IV access, 1 mg Glucagon IM. For BG less than 50 mg/dL: Oral treatment preferred:?? If able to drink, give 240 mL Juice or Regular (not diet) soda OR If NPO, give 30 gram glucose 40% oral gel massaged in buccal mucosa OR if unco nscious or uncooperative, give 25 gram (250 mL) Dextrose 10% IV over 15 minutes per protocol OR, if no IV access, 1 mg Glucagon IM. Recheck BG in 30 minutes. Ma y repeat juice/soda, gel, dextrose or gl ucagon once per episode. For persistent hypoglycemia, consider longer-acting treatment for the duration of the active insulin. glucagon (Glucagen) (1 mg/mL) injection solution 1 mg(Linked Dawn up 2) 1 mg, Intramuscular, EVERY 30 MIN PRN, S tarting on Wed10/08/20 at 1343, Until Wed10/09/20 at 1710, Low blood sugar, For BG 50-70 mg/dL: Oral treatment preferred:?? If able to drink, give 120 mL Juice or Regular (not diet) soda OR If NPO, g guillermo 15 gram glucose 40% oral gel massaged into buccal mucosa OR if unconscious or uncooperative, give 25 gram (250 mL) Dextrose 10% IV over 15 minutes per protoco l OR, if no IV access, 1 mg Glucagon IM. For BG less than 50 mg/dL: Oral treatment preferred:?? If able to drink, give 240 mL Juice or Regular (not diet) soda OR If NPO, give 30 gram glucose 40% oral gel massaged in buccal mucosa OR if unc onscious or uncooperative, give 25 gram (250 mL) Dextrose 10% IV over 15 minutes per protocol OR, if no IV access, 1 mg Glucagon IM. Recheck BG in 30 minutes. M ay repeat juice/soda, gel, dextrose or g lucagon once per episode. For persistent hypoglycemia, consider longer-acting treatment for the duration of the active insulin., Routine glucose (GLUTOSE) 40% oral geL(Linked Group 2) 15-30 g, Buccal, EVERY 30 MIN PRN, Start ing on Wed10/08/20 at 1343, Until Wed10/09/20 at 1710, Low blood sugar, For BG 50-70 mg/dL: Oral treatment preferred:?? If able to drink, give 120 mL Juice or Regular (not diet) soda OR If NPO, give 15 gram glucose 40% oral gel massaged into buccal mucosa OR if unconscious or uncooperative, give 25 gram (250 mL) Dextrose 10% IV over 15 minutes per protocol OR , if no IV access, 1 mg Glucagon IM. For BG less than 50 mg/dL: Oral treatment preferred:?? If able to drink, give 240 mL Juice or Regular (not diet) soda OR If NPO, give 30 gram glucose 40% oral gel massaged in buccal mucosa OR if unconsc ious or uncooperative, give 25 gram (250 mL) Dextrose 10% IV over 15 minutes per protocol OR, if no IV access, 1 mg Glucagon IM. Recheck BG in 30 minutes. May r epeat juice/soda, gel, dextrose or gluca musa once per episode. For persistent hypoglycemia, consider longer-acting treatment for the duration of the active insulin. 1 tube contains 15 grams of glucose (net weight of tube = 37.5 grams., Routine HYDROmorphone (Dilaudid) (2 mg/mL) multi -dose injection solution 0.4 mg (CANCELED) 1213 (Given - Provider: Peyton Pablo RN) 0.4 mg, Intravenous, EVERY 10 MIN PRN, S tarting on Wed10/08/20 at 1206, Until Wed10/08/20 at 1335, Pain, For Moderate to Severe Pain (6-10 out of 10), Hold for respiratory rate less than 10 per minute. Maximum dose 3 mg over one hour includin g administrations in the OR. If multiple pain medications are ordered, start with HYDROmorphone or morphine and use fentaNYL for breakthrough pain, PACU Recovery, Routine lidocaine (Xylocaine) 1% (10 mg/mL) injection 3 mg (COMPLETE D) 0720 (Given - Provider: Jossy Farias RN) 3 mg (0.3 mL), Subcutaneous, ONCE PRN, 1 dose, Starting on Wed10/08/20 at 0642, Until Wed10/08/20 at 0720, for discomfort with PIV insertion, Day of Surgery (Day of Procedure), Routine melatonin tablet 3 mg 3 mg, Oral, NIGHTLY PRN, Starting on Wed10/08/20 at 1343, Until Wed10/09/20 at 1710, Sleep, Routine ondansetron (pf) (Zofran) (2 mg/mL) injection 4-8 mg(Linked Grou p 3) 4-8 mg, Intravenous, EVERY 8 HOURS PRN, Starting on Wed10/08/20 at 1343, Until Wed10/09/20 at 1710, Nausea, Start with 4mg and if ineffective in 30 minutes, give an additional 4mg If multiple antiemetics are ordered, give ondansetron first. ondansetron (Zofran) tablet 4-8 mg(Linked Group 3) 4-8 mg, Oral, EVERY 8 HOURS PRN, Startin g on Wed10/08/20 at 1343, Until Wed10/09/20 at 1710, Nausea, Vomiting, If multiple antiemetics are ordered, use ondansetron first. PO Preferred. If patient un able to take PO, may give IV if ordered. Start with 4mg and if ineffective in 45 minutes, give an additional 4mg. If unable to take PO, may give IV., Routine oxyCODONE (Roxicodone) tablet 5 mg 1717 (Given - Provider: Saul Curry RN) 0333 (Given - Provider: Manuel Wang RN) 1025 (Given - Provider: Azeem Shields, SHARRI) 5 mg, Oral, EVERY 4 HOURS PRN, Starting on Wed10/08/20 at 1411, Until Wed10/09/20 at 1710, Pain, Routine prochlorperazine (Compazine) (5 mg/mL) injection 5 mg (CANCE LED) 1239 (Given - Provider: Sheryl Campos, SHARRI) 5 mg, Intravenous, EVERY 30 MIN PRN, 2 d oses, Starting on Wed10/08/20 at 1206, Until Wed10/08/20 at 1335, Nausea, Maximum total dose of 10 mg (including OR administration). If multiple antiemetics ord ered, use ondansetron first and if ineff ective use prochlorperazine second and if ineffective use promethazine, PACU Recovery, Routine senna-docusate (Pericolace) 8.6-50 mg per tablet 2 tablet 2 tablet, Oral, 2 TIMES DAILY PRN, Start ing on Wed10/08/20 at 1343, Until Wed10/09/20 at 1710, Constipation, Routine Linked Groups Order Group 1: POCT Fingerstick Glucose (CANCELED) Routine, 4 TIMES DAILY BEFORE MEALS & AT BEDTIME, First occurrence on Wed10/08/20 at 1700, Until Specified
Consider choosing FOUR TIMES A DAY BEFORE MEALS AND AT BEDTIME as frequency fo r: Patients who have good hypoglycemia a wareness: -Patients who are eating meals during the day and sleeping at night -Patient who are otherwise stable And insulin lispro (HumaLOG;Admelog) (100 unit/mL) subcutaneous injection vial 1-5 UnitsJump to med 1-5 Units, Subcutaneous, 3 TIMES DAILY B EFORE MEALS, First dose on Wed10/08/20 at 1630, Until Discontinued
CORRECTION BOLUS [1-4 Units] Sensitive Sliding Scale (BG in mg/dL): Corre ction factor 40 (1 unit of insulin is ex pected to drop the glucose 40 mg/dL) BG 160 - 200 Give 1 unit BG 201 - 240 Give 2 units BG 241 - 280 Give 3 units &nb sp;BG greater than 280, give 4 units and recheck BG in 2 hours. - If recheck BG is LESS than 280, give no insulin and resume schedule - If recheck BG is GREATER than 280, give 4 units and repeat BG in 2 hours (no more than 3 times) & call for new insulin orders. DO NOT hold if NPO, unless specifically directed to do so by written order. Per Blood Glucose Monitoring Policy, re-check a BG of > 240 mg/dL in 2 hours.
Routine Group 2: glucose (GLUTOSE) 40% oral geLJump to med 15-30 g, Buccal, EVERY 30 MIN PRN, Start ing on Wed10/08/20 at 1343, Until Wed10/09/20 at 1710, Low blood sugar
For BG 50-70 mg/dL: Oral treatment preferred:?? If able to drink, give 120 mL J uice or Regular (not diet) soda OR If FELT HAT FLANGING OPERATOR O, give 15 gram glucose 40% oral gel massaged into buccal mucosa OR if unconscious or uncooperative, give 25 gram (250 mL) Dextrose 10% IV over 15 minutes per pro tocol OR, if no IV access, 1 mg Glucagon IM. For BG less than 50 mg/dL: Oral treatment preferred:?? If able to drink, give 240 mL Juice or Regular (not diet) soda OR If NPO, give 30 gram gl ucose 40% oral gel massaged in buccal mu cosa OR if unconscious or uncooperative, give 25 gram (250 mL) Dextrose 10% IV over 15 minutes per protocol OR, if no IV access, 1 mg Glucagon IM. Rech deejay BG in 30 minutes. May repeat juice/s zena, gel, dextrose or glucagon once per episode. For persistent hypoglycemia, consider longer-acting treatment for the duration of the active insulin . 1 tube contains 15 grams of gluco se (net weight of tube = 37.5 grams.
Routine Or dextrose 10% infusionJump to med 250 mL, at 1,000 mL/hr, Intravenous, PETER RY 30 MIN PRN, Starting on Wed10/08/20 at 1343, Until Wed10/09/20 at 1710
For BG 50-70 mg/dL: Oral treatment preferred:?? If able to drink, give 120 m L Juice or Regular (not diet) soda OR If NPO, give 15 gram glucose 40% oral gel massaged into buccal mucosa OR if unconscious or uncooperative, give 25 gram (250 mL) Dextrose 10% IV over 15 minutes per protocol OR, if no IV access, 1 mg Gluca musa IM. For BG less than 50 mg/dL: Oral treatment preferred:?? If able to drink, give 240 mL Juice or Regular (not diet) soda OR If NPO, give 30 gram glucose 40% oral gel massaged in buccal mucosa OR if unconscious or uncooperative, give 25 gram (250 mL) Dextrose 10% IV over 15 minutes per protocol OR, if no IV access, 1 mg Glucagon IM. R echeck BG in 30 minutes. May repeat juic e/soda, gel, dextrose or glucagon once per episode. For persistent hypoglycemia, consider longer-acting treatment for the duration of the active insulin.
Or glucagon (Glucagen) (1 mg/mL) injection solution 1 mgJump to med 1 mg, Intramuscular, EVERY 30 MIN PRN, S tarting on Wed10/08/20 at 1343, Until Wed10/09/20 at 1710, Low blood sugar
For BG 50-70 mg/dL: Oral treatment preferred:?? If able to drink, give 120 mL Juice or Regular (not diet) soda OR I f NPO, give 15 gram glucose 40% oral gel massaged into buccal mucosa OR if unconscious or uncooperative, give 25 gram (250 mL) Dextrose 10% IV over 15 minutes per protocol OR, if no IV access, 1 mg Gluc agon IM. For BG less than 50 mg/dL: Oral treatment preferred:?? If able to drink, give 240 mL Juice or Regular (not diet) soda OR If NPO, give 30 gra m glucose 40% oral gel massaged in bucca l mucosa OR if unconscious or uncooperative, give 25 gram (250 mL) Dextrose 10% IV over 15 minutes per protocol OR, if no IV access, 1 mg Glucagon IM. Recheck BG in 30 minutes. May repeat jui ce/soda, gel, dextrose or glucagon once per episode. For persistent hypoglycemia, consider longer-acting treatment for the duration of the active insulin.
Routine Group 3: ondansetron (Zofran) tablet 4-8 mgJump to med 4-8 mg, Oral, EVERY 8 HOURS PRN, Startin g on Wed10/08/20 at 1343, Until Wed10/09/20 at 1710, Nausea, Vomiting
If multiple antiemetics are ordered, use ondansetron first. PO Prefer red. If patient unable to take PO, may g guillermo IV if ordered. Start with 4mg and if ineffective in 45 minutes, give an additional 4mg. If unable to take PO, may give IV.
Routine Or ondansetron (pf) (Zofran) (2 mg/mL) injection 4-8 mgJump to med 4-8 mg, Intravenous, EVERY 8 HOURS PRN, Starting on Wed10/08/20 at 1343, Until Wed10/09/20 at 1710, Nausea
Start with 4mg and if ineffective in 30 minutes, give an additional 4mg If multiple antiemetics are ordered, give ondansetron first.
documented in this encounter Care Teams Fashion Marketer Relationship Specialty Start Date End Date Iliana Hurt, ARSEN PCP - General Family Medicine 07/18/20 [address] [place] [address] documented as of this encounter
--- OUTSIDE RECORDS SUMMARY | 2021-08-22 00:16 | XMS_ITS | Encounter Summary ---
:1965 Author Organization [facility] [place] [address] Care Team Providers Name Role Phone Iliana Hurt APRN Primary Care Provider Encounter Details Date Type Department Care Team Description 08/14/2020 Orders Only Gastroenterology at [facility] Juani Hi, Hepatic cirrhosis, [facility] Jourdan jauregui [place] [address] [facility] Medical cirrhosis type, [place] unspecified whether [place], [place] ascites present [address] Social History Tobacco Use Types Packs/Day Years Used Date Never Smoker Sex Assigned at Date Recorded Not on file documented as of this encounter Plan of Treatment Not on filedocumented as of this encounter Visit Diagnoses Diagnosis Hepatic cirrhosis, unspecified hepatic c irrhosis type, unspecified whether ascites present documented in this encounter Care Teams Power Press Operator Relationship Specialty Start Date End Date Iliana Hurt APRN PCP - General Family Medicine 07/18/20 [place] [address] documented as of this encounter
--- OUTSIDE RECORDS SUMMARY | 2021-08-22 00:16 | XMS_ITS | Encounter Summary ---
:1965 Author Organization [facility] [place] [address] Care Team Providers Name Role Phone Iliana Hurt ARSEN Primary Care Provider Encounter Details Date Type Department Care Team Description 11/08/2020 Orders Only Radiology at [facility] [place] Gordon Fang MD [place] [address] DIAGNOSTIC RADIOLOGY [phone] [place], [place] [address] (Wo rk) Social History Tobacco Use Types Packs/Day Years Used Date Never Smoker Smokeless Tobacco: Never Used Alcohol Use Standard Drinks/Week Comments Not Currently 0 (1 standard drink = 0.6 oz pure alcoho l) Sex Assigned at Date Recorded Not on file documented as of this encounter Progress Notes Gordon Fang MD - 11/08/2020 5:22 PM EDT Images from the original note were not included. Good morning Dr. Fang, I received a call from Ms. Rivers in reference to this procedure ???IR TIPS [[id number]]?? dated 10.08.20. She has stated that she has an extreme amount of swelling, discomfort and pain in her feet. She said she did reach out to her PCP but they told her there was nothing they could do for her to reach out to you. She is asking that you contact her to discuss what she should do. Her contact information is [phone]. Thank you Trish Jiménez Sr. [facility] (P) [phone] (f) [phone] [email or web address] I called Ms. Rivers who has foot swelling when she is on her feet even for fairly short periods oftime. Leg elevation does help. Feet swell enough that her shoes do not fit and she has discomfort with walking. She says she is due to see Dr. Hi November 23 although I do not see that listed in [facility]. I told Ms. Rivers that treatment for her foot swelling might include work on the TIPS but I wouldnot do that until she is seen Dr. Hi. Her situation may be addressable with medication alone and revision of the TIPS could increase her risk of encephalopathy. documented in this encounter Plan of Treatment Not on filedocumented as of this encounter Visit Diagnoses Not on filedocumented in this encounter Care Teams Kiln Maintenance Relationship Specialty Start Date End Date Iliana Hurt APRN PCP - General Family Medicine 07/18/[address] [place] [address] [place] [address] documented as of this encounter
--- OUTSIDE RECORDS SUMMARY | 2021-08-22 00:16 | XMS_ITS | Encounter Summary ---
:1965 Author Organization [facility] [place] [address] Care Team Providers Name Role Phone Iliana Hurt APRN Primary Care Provider Reason for Referral Diagnostic Test (Routine) - Closed Specialty Diagnoses / Procedures Referred By Contact Refer red To Contact Radiology Diagnoses Hepatic cirrhosis, unspecified hepatic cirrhosis type, unspecified whether ascites present Juani Hi MD [facility] Interventionl Rad Procedures IR TIPS [place] [address] [place] [address] Fax: Referral ID Status Reason Start Date Expiration Date Visits V isits Requested Authorized [id number] Closed Specialty 07/23/2020 01/22/2022 1 1 Service Requested Reason for Visit Auth/Cert Specialty Diagnoses / Procedures Referred By Contact Refer red To Contact Diagnoses S/P TIPS (transjugular intrahepatic portosystemic shunt) Hepatic cirrhosis Procedures PRO INSERT TRANSVEN INTRAHEP PORTOSYS SHUNT TRANSJUGULAR INTRAHEPATIC PORTAL SHUNT (WRVU 16.97) Referral ID Status Reason Start Date Expiration Date Visits Requ ested Visits Authorized [id number] 1 1 Encounter Details Date Type Department Care Team Description 10/08/2020 Hospital Encounter Rad[place] [facility] [place] Hi, Hepatic cirrhosis, [facility] unspecified hepatic [address] [facility] Medical cirrhosis type, [facility] unspecified whether [address] [place], [place] ascites present [phone] [id number] Social History Tobacco Use Types Packs/Day Years Used Date Never Smoker Smokeless Tobacco: Never Used Alcohol Use Standard Drinks/Week Comments Not Currently 0 (1 standard drink = 0.6 oz pure alcoho l) Sex Assigned at Date Recorded Not on file documented as of this encounter Discharge Instructions Discharge Arya Moulton RN - 10/08/2020 8:07 AM EDT [facility] Vascular and Interventional Radiology Transjugular Intrahepatic Portosystemic [...] is during regular office hours, please call [phone]. If it is after regular office hours, oron weekends or holidays, please call [phone] and ask to speak to the County Agent on callfor Interventional Radiology. XX You have [...] please contact your M. D. Revised 12/08/18 documented in this encounter Medications at Time [...] Night Drain Container) Misc Combo Route) route. HYDROcodone-acetaminophen Take 1-1.5 tablets 0 10/09/2020 5-325 mg per tablet by mouth every 6 hours as needed. clonazePAM (KLONOPIN) 1 mg Take 1 mg by mouth 0 10/09/2020 tablet 2 times daily. documented as of this encounter Progress Notes Arya Menchaca RN - 10/08/2020 8:07 AM EDT [facility] DATABASE Name: FRANK RIVERS Date of : 1965 AGE: 54 y.o. Address: [address] [address] (home) Mobile: No relevant phone numbers on file. Referring Provider: Juani Hi REASON FOR VISIT: Order Questions Answers Where will study be performed? [facility] Radiology [120] Is the patient on anticoagulant / antiplatelet therapy ? 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 Huitron Is the patient ? No Allergies Allergen Reactions ??? Codeine Other (See Comments) surgery ??? Ibuprofen Other (See Comments) surgery Pertinent PMH: Patient Active Problem List Diagnosis Code ??? Hx of colon cancer, stage III Z85.038 ??? H/O colectomy Z90.49 ??? Back pain M54.9 Date/Procedure Meds Given/Comments 10/08/20 TIPS ANES. Laboratory Results: Lab Results Component Value Date INR 1.3 10/08/2020 Lab Results Component Value Date CREATININE 0.52 (L) 10/08/2020 Lab Results Component Value Date K 3.9 10/08/2020 Lab Results Component Value Date PLATELET 99 (L) 10/08/2020 documented in this encounter Procedure Notes Gordon Fang MD - 10/08/2020 11:59 PM EDT IR PROCEDURE NOTE Procedure: TIPS creation Portosystemic pressure transduction Indication for Procedure: As per the note by Dr. Rocha on 09/05/20, 54 y.o. female presenting in consultation at the request of Dr. Juani Hi and Dr. Rob Huitron as well as the patient herself for recurrent ostial bleeding in the setting of DAMON Cirrhosis and Portal Hypertension for consideration of TIPSS creation. Past medical history is significant for obesi ty, pre-diabetes, colon carcinoma status post colonic resection and colostomy creation in 2019. The patient was recently diagnosed with macrocytosis. The patient was followed by Dr. Hi at [facility]. The patient has had recurrent episodes of variceal bleeding related to her ostomy. The patient underwent work-up at [facility] which revealed a normal echocardiogram and a conventional hepatic vein/portal vein anatomy. Procedure events and findings: After obtaining written/informed consent, the patient was positioned supine on the procedure table under Anesthesia. Right neck base was prepped and draped, maximum sterile barrier technique was employed through out the case. The right internal jugular vein was accessed using a micropuncture set. A 4 Fr sheath was placed then exchanged for a 5 Fr sheath. A second, more cranial, position on the right neck was selected and the right IJ vein was accessed once again using micropuncture technique, a 4 Fr sheath was placed. A 5 Fr angled catheter and glide wire were placed through the existing 5 Fr sheath which were used to select the right hepatic vein. The catheter was then advanced distally into the hepatic vein and wedged in a small hepatic vein branch. A CO2 portogram was performed, demonstrating position of the portal venous system. The more cranial 4 Fr sheath in the right IJV was exchanged for a 10Fr sheath over a guidewire following dilation of the tract. An IVUS probe was then advanced through the sheath and positioned in the IVC. The IVUS probe was used for intra-procedural imaging including assistance with needle deploymentand assessing stent position in the portal vein and at the hepatic vein-IVC confluence. The 5 Fr sheath was exchanged for a 10 Fr sheath and advanced into the right hepatic vein. Attempts to advanced the Rosch Uchida TIPS set and needle resulted in dislodgement of the sheath from the right hepatic vein. The right hepatic vein was then selected with the assistance of a 5 Fr C2 glidecath and an 0.035 glidewire advanced through the 10 Fr sheath. The Rosch Uchida TIPS set and needle were then advanced through the sheath into the right hepatic vein over an 0.035 guidewire. The guidewire was removed and the needle was advanced, directed with thetip anteromedial and advanced through the parenchyma into the portal system, needle position documented with IVUS. Once the position in the portal system had been documented with contrast injection, a wire was advanced into the main portal vein. An angled catheter was advanced into the portal vein andposition was confirmed with contrast injection. An 0.035 Amplatz guidewire was then advanced through the angled catheter into the splenic vein. Angled catheter was removed and the parenchymal tract was dilated to 8 mm with over the wire 8 mm x 40 mm balloon angioplasty. At this time pressures were measured as follows: 15 mm Hg main portal vein, 5 mm Hg right atrium for a gradient of 10 mm Hg. An 8-10 mm x 10 cm (8 cm covered) Viatorr stent was then placed over the wire, positioned between the right portal and right hepatic veins. The portal venous aspect of the stent was reinforced with a 10 mm x 40 mm LifeStar stent due to concern for kink due to telescoping at the junction between covered and uncovered portions of the Viatorr. The TIPS (both stents) was then dilated to 8 mm. Repeat pressures were performed: 12 mm Hg main portal vein, 7-8 mm Hg right atrium for a gradient of 4-5 mm Hg. IVUS showed the tip of the TIPS stent terminating at the hepatic vein-IVC confluence. A 5 Fr angled catheter was advanced through the TIPS to the main portal vein and portogram was performed. Portogramshowed flow from the portal vein through the TIPS to the right atrium. There was no opacification ofvarices in the expected region of the ostomy or the umbilicus. The angled catheter and IVUS probe were then respectively withdrawn. Both 10 Fr sheaths were removedand hemostasis was obtained with manual compression. A dressing was applied. The patient tolerated the procedure well and there were no immediate complications. Medications: 1% Lidocaine <10 cc SQ, please see Anesthesiology documentation for additional medication details. Antibiotic Prophylaxis: Unasyn 3 g IV once Contrast: 95 cc. Omni 350. Fluoro: 530 mGray Est Blood Loss: <20 cc. Complications: No immediate. Impression: 1. TIPS creation, 8-10 mm x 10 cm Viatorr stent (8 cm covered) from the right portal vein to the IVC. 2. Uncovered 10mm stent placed across TIPS portal end (covered/uncovered junction) due to concern for kink at covered/uncovered junction. 2. TIPS dilated to 8 mm, final portosystemic gradient 4-5 mm Hg on conclusion of procedure. 3. No opacification of varices in the region of the ostomy or umbilicus on post- procedural portal venography. Resident/Fellow: Vidal Delgado MD Attending: Gordon Fang MD. I, Dr. Fang was present throughout this procedure. documented in this encounter Miscellaneous Notes Brief Op Note - Vidal Delgado MD - 10/08/2020 11:25 AM EDT INTERVENTIONAL RADIOLOGY BRIEF PROCEDURE NOTE Patient Name: Frank Rivers : 1965 Case Date: 10/08/2020 Operators: Attending: Leoncio Resident/Fellow: Sandy Post-operative diagnosis/Indication: DAMON cirrhosis, bleeding ostomy varcies Name of Procedure Performed: TIPS creation, portosystemic pressure transduction Brief description of the procedure: ?? US-guided [...] ?? Portogram with CO2 and contrast injection Findings of the procedure: ?? Patient and easily compressible right IJV by ultrasound ?? Pressure measurements following FRUIT AND VEGETABLE CLASSER of parenchymal tract to 8 mm: Main [...] ?? Pressure measurements following TIPS creation and FRUIT [employer] VEGETABLE CLASSER to 8 mm: Main portal vein 12 mm Hg, right atrium 7-8 mm Hg, portosystemic gradient 4-5 mm Hg ?? IVUS showed tip of TIPS stent terminating at the hepatic vein-IVC confluence. ?? Portogram showed preferential flow from the portal vein through the TIPS to the right atrium. No opacification of varices in the expected region of the ostomy or the umbilicus. EBL: <20 mL Specimens: _N/A_ Complications: No immediate Plan/Disposition: - To PACU with Anesthesia. Admit to follow with Hospital Medicine (pager [phone]) - signout provided tothe admitting team. IR will also follow. FULL PROCEDURE NOTE TO FOLLOW IN IMAGE REPORT documented in this encounter Plan of Treatment Not on filedocumented as of this encounter Procedures Procedure Name Priority Date/Time Associated Diagnosis Comme nts POCT GLUCOSE Routine 10/08/2020 4:31 PM Results f or this EDT procedure are i n the results section. IR TIPS Routine 10/08/2020 11:24 AM Hepatic cirrhosis, Re sults for this EDT unspecified hepatic procedur e are in cirrhosis type, the results unspecified whether section. ascites present documented in this encounter Results POCT Glucose (10/08/2020 4:31 PM EDT) P athologist Signature POC Glucose 160 65 - 199 JUANI RUIZ mg/dL [facility] Comment: Supplemental ranges: <140 mg/dL before meals <180 mg/dL all other times of the day Specimen Anatomical Collection Method Collection Time Receive d Time (Source) Location / / Volume Laterality Blood 10/08/2020 4:31 PM 4:31 EDT PM EDT Juani Hi MD POINT OF CARE TEST ORDERABLE S Performing Organization Address City/State/ZIP Code Phon e Number [place] [address] IR TIPS (10/08/2020 11:24 AM EDT) Anatomical [...] nt was followed by Dr. Hi at [facility]. 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 ??The pa scott underwent work-up at [facility] which revealed a normal echocar diogram [...] more cranial 4 Fr sheath in the [facility] t IJV was exchanged for a 10Fr [...] right hepatic vein. Attempts to advanced the [facility] Uchida TIPS set and needle resulted in [...] ORDERABLES documented in this encounter Visit Diagnoses Diagnosis Hepatic cirrhosis, unspecified hepatic c irrhosis type, unspecified whether ascites present documented in this encounter Administered Medications Inactive Administered Medications - up to 3 most recent administrations Medication Order MAR Action Action Date Dose Rate Site iohexoL (Omnipaque) (350 mg/mL) Given 10/08/2020 11:32 AM EDT 95 mLs injection solution 1-400 mL 1-400 mL, Intravenous, ONCE, 1 dose, On Wed10/08/20 at 0830, For intra-procedural use by proceduralist., Angio/IR (Intra-Procedure), Routine documented in this encounter Care Teams Flame Annealing Machine Operator Relationship Specialty Start Date End Date Iliana Hurt APRN PCP - General Family Medicine 07/18/20 [place] [address] documented as of this encounter
--- OUTSIDE RECORDS SUMMARY | 2021-08-22 00:16 | XMS_ITS | Encounter Summary ---
:1965 Author Organization [facility] [place] [address] Care Team Providers Name Role Phone Iliana Hurt APRN Primary Care Provider Reason for Visit Auth/Cert Specialty Diagnoses / Procedures Referred By Contact Refer red To Contact Diagnoses S/P TIPS (transjugular intrahepatic portosystemic shunt) Hepatic cirrhosis Procedures PRO INSERT TRANSVEN INTRAHEP PORTOSYS SHUNT TRANSJUGULAR INTRAHEPATIC PORTAL SHUNT (WRVU 16.97) Referral ID Status Reason Start Date Expiration Date Visits Requ ested Visits Authorized [id number] 1 1 Encounter Details Date Type Department Care Team Description 10/08/2020 Anesthesia Event [facility] Janae Rivera MD [facility] [place] [address] [facility] Quincy Barnhart MD [facility] [place] [place] [address] [place] [address] Anesthesia Record Procedure Summary Procedure Name Responsible Anesthesia Start Anesthesia Stop Anesthesiologist Time Time @TRANSJUGULAR Janae Pérez MD 10/08/20 0735 10/08/20 114 9 INTRAHEPATIC PORTAL SHUNT (WRVU 16.97) (N/A ) Events Date Time Event Comment 10/08/2020 0720 0735 AN Verify 0735 Start 0735 An Start Data 0742 An Induction 0745 An Intubation 0752 Anesthesia Ready 0823 Break/Relief In I assumed care f or Break Relief before which we: 1. Identifie d the patient 2. Identified the responsible provider(s) 3. Reviewed the pertinent medica l history 4. Discussed the surgical plan an d course 5. Reviewed intra-op anesthesia manag ement and issues during anesthesia 6. Se t expectations for the relief (and/or post-pro cedure) period 7. Allowed opportunity for questions and acknowledgement of understanding Mariam Hill CRNA 0823 Quick Note 1% lidocaine inj ected by IR staff 0948 Quick Note Do not redose an tibiotics per surgeon 1116 Procedure Stop 1136 Extubation/LMA Out 1137 an stop data 1149 Recovery or ICU Handoff Patient care was transferred to the destination unit staff after review of the patient's medica l history, current anesthetic/surgi bethany status and plan, according to the Provider Handoff Checklist. 1149 Stop Name Total Midazolam 2 mg fentaNYL 100 mcg IV Lidocaine 100 mg Propofol 200 mg Rocuronium 70 mg Ondansetron 4 mg Dexamethasone 8 mg Neostigmine 3 mg Glycopyrrolate 0.4 mg ampicillin-sulbactam (Unasyn) 3 g vial attach to sodiu m chloride 0.9% 100 3 g mL Mini-Bag Plus Propofol INF 971.36 mg lactated ringers infusion 600 mL Agents Name O2 Air N2O Sevoflurane (et) Blood No blood administrations on file. Lines, Drains, and Airways Type Details Placement Removal Incision 10/08/20; 0831; Right; neck; 10/08/[address], non-laparascopic puncture; Arya Martin RN ACCESS SITE FOR TIPS PIV 10/08/20; 0718; metacarpal 10/08/20 0718 by 09/12 1027 by vein (top of hand), left; Jossy Farias, RN Fredrick Chester cafi-oxl-wreimg catheter system; Anatomical Landmarks; 20 gauge, 1 in length; rtrn; intradermal injection, tolerated well, appears comfortable; 07/29/21 (LDA Cleanup utility RA#[id number]); 1027 (LDA Cleanup utility RA#[id number]) ETT Mask Ventilation: Easy (1); 10/08/20 0745 by Ana max, 10/08/20 1136 by Shaggy, ETT Type: Cuffed; ETT Size: Ganesh Elliott 7 mm; Aguilar Blade: 2; Notes: Asleep, Pre-O2, Stylette; Attempts: 1; Laryngoscopy Grade: 1; ETT Placement Verified By: Auscultation, Capnometry, Visual; Secured at Teeth: 21 cm; Inserted by: Tye LACKEY documented in this encounter Social History Tobacco Use Types Packs/Day Years Used Date Never Smoker Smokeless Tobacco: Never Used Alcohol Use Standard Drinks/Week Comments Not Currently 0 (1 standard drink = 0.6 oz pure alcoho l) Sex Assigned at Date Recorded Not on file documented as of this encounter OR Notes Anesthesia Postprocedure Evaluation - Janae Pérez MD - 10/08/2020 2:25 PM EDT Department of Anesthesiology Post-procedure Note Patient: Janice Rivers Procedure Summary Date: 10/08/20 Room / Location: [facility] INTERVENTIONAL RADIOLOGY / [facility] Anesthesia Start: 734 Anesthesia Stop: 1149 Procedure: TRANSJUGULAR INTRAHEPATIC PORTAL SHUNT (WRVU 16.97) (N/A ) Diagnosis: (Hepatic cirrhosis) Surgeons: Alek Berman MD Responsible Provider: Janae Pérez MD Anesthesia Type: general ASA Status: 3 All Anesthesia Providers: Anesthesiologist: Janae Pérez MD OFFICE SERVICE COORDINATOR: Alek Trivedi CRNA Student Nurse Doctor Of Medicine: Ganesh Coon Vitals Value Taken Time BP 162/87 10/08/20 1315 Temp 36.4 ??C (97.5 ??F) 10/08/20 1144 Pulse 85 10/08/20 1325 Resp 23 10/08/20 1325 SpO2 93 % 10/08/20 1329 Pain Level 0 10/08/20 1245 Vitals shown include unvalidated device data. Patient Location: PACU/[facility] Level of Consciousness: Awake and Alert Pain Management: Satisfactory Analgesia PONV: None Cardiovascular Status: At Baseline and Hemodynamically Stable Respiratory Status: At Baseline and Room Air Postoperative Fluid Status: Intravascular EUvolemia Possible Anesthetic Complications: NONE apparent at time of evaluation Final Primary Anesthesia Type: General (The anesthetic type performed was the same as planned.) Comments: JANAE PÉREZ MD Anesthesia Preprocedure Evaluation - Janae Pérez MD - 10/08/2020 7:15 AM EDT Pre-Anesthesia Evaluation for: Janice Rivers a 54 y.o. female. Procedure(s): TRANSJUGULAR INTRAHEPATIC PORTAL SHUNT (WRVU 16.97) Patient Active Problem List Diagnosis ??? Hx of colon cancer, stage III ??? H/O colectomy ??? Back pain Past Medical History: Diagnosis Date ??? H/O colectomy 06/22/2013 History reviewed. No pertinent surgical history. Social History Tobacco Use ??? Smoking status: Never Smoker ??? Smokeless tobacco: Never Used Substance Use Topics ??? Alcohol use: Not Currently Social History Substance and Sexual Activity Drug Use Never Allergies Allergen Reactions ??? Codeine Other (See Comments) surgery ??? Ibuprofen Other (See Comments) surgery Medications: MAR and/or home medications have been reviewed. Physical Exam: Preprocedure Vitals Current as of 10/08/20 0715 BP: 133/61 Pulse: 62 Resp: 16 SpO2: 98 Temp: 36.6 ??C (97.9 ??F) Height: 162.6 cm (5' 4) (10/08/20) Weight: 95.7 kg (211 lb) (10/08/20) BMI: 36.21 IBW: 54.7 kg (120 lb 10.7 oz) Last edited 10/08/20 0636 by RT Airway Assessment: Mallampati: II TM distance: >3 FB Neck ROM: full Cardiovascular Assessment: Rhythm: regular Pulmonary Assessment: unlabored breathing Dental Assessment: - normal exam Misc Assessment: Last Filed Perioperative Cognitive Screening None Anesthesia Plan: ASA 3 general, with a(n) intravenous induction 54 yo female for TIPS. PMH: DAMON cirrhosis, remote colon cancer with resection and ostomy, NIDDM, mild asthma associated with URI (no inhaler use for months). No recent illness, allergies reviewed, NPO. Tolerated prior anesthesia. Normal recent ECHO, labs and notes from OSH reviewed. Mild thombocytopenia noted. 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 GETA, std monitors. Region - Other Informed Consent: Anesthetic plan and risks discussed with patient. Use of blood products discussed with patient who consented to blood products. Plan discussed with OFFICE SERVICE COORDINATOR. Anesthesia Screening documented in this encounter Plan of Treatment Not on filedocumented as of this encounter Visit Diagnoses Not on filedocumented in this encounter Administered Medications Inactive Administered Medications - up to 3 most recent administrations Medication Order MAR Action Action Date Dose Rate Site ampicillin-sulbactam (Unasyn) 3 g New Bag 10/08/2020 7:51 AM EDT 3 g vial attach to sodium chloride 0.9% 100 mL Mini-Bag Plus 3 g, Intravenous, ONCE, 1 dose, On Wed10/08/20 at 0700, Administer over 30 Minutes, Warning Vesicant/Irritant Medication , Day of Surgery (Day of Procedure), Indication for (Active or Suspected): Prophylaxis dexamethasone (Decadron) injection Given 10/08/2020 7:51 AM EDT 8 mg Intravenous, PRN, Starting on Wed10/08/20 at 0751, Until Wed10/08/20 at 1149, Anesthesia Intra-op, Routine fentaNYL (pf) (50 mcg/mL) multi-dose Given 10/08/2020 10:36 AM E DT 50 mcg injection Intravenous, PRN, Starting on Wed10/08/20 at 1008, Until Wed10/08/20 at 1149, Anesthesia Intra-op, Routine Given 10/08/2020 10:08 AM EDT 50 mcg glycopyrrolate (Robinul) (0.2 mg/mL) Given 10/08/2020 11:14 AM E DT 0.4 mg multi-dose injection Intravenous, PRN, Starting on Wed10/08/20 at 1114, Until Wed10/08/20 at 1149, Anesthesia Intra-op, Routine lactated ringers infusion New Bag 10/08/2020 7:35 AM EDT 1,000 mL, at 100 mL/hr, Intravenous, CONTINUOUS, Starting on Wed10/08/20 at 0700, Until Wed10/08/20 at 1335, Day of Surgery (Day of Procedure) New Bag 10/08/2020 7:20 AM EDT 1,000 mLs 100 mL/hr lidocaine (pf) (Xylocaine) (20 mg/mL) 2% Given 10/08/2020 7:42 A M EDT 100 mg injection syringe Intravenous, PRN, Starting on Wed10/08/20 at 0742, Until Wed10/08/20 at 1149, Anesthesia Intra-op, Routine midazolam (pf) (Versed) (1 mg/mL) multi-dose Given 10/08/2020 7: 30 AM EDT 2 mg injection Intravenous, PRN, Starting on Wed10/08/20 at 0730, Until Wed10/08/20 at 1149, Anesthesia Intra-op, Routine neostigmine (Bloxiver) (1 mg/mL) injecti on Given 10/08/2020 11:14 AM EDT 3 mg Intravenous, PRN, Starting on Wed10/08/20 at 1114, Until Wed10/08/20 at 1149, Anesthesia Intra-op, Routine ondansetron (pf) (Zofran) (2 mg/mL) inje ction Given 10/08/2020 11:08 AM EDT 4 mg Intravenous, PRN, Starting on Wed10/08/20 at 1108, Until Wed10/08/20 at 1149, Anesthesia Intra-op, Routine propofoL (Diprivan) 10 mg/mL bolus injection Given 7:42 AM EDT 200 mg (Anesthesia) Intravenous, PRN, Starting on Wed10/08/20 at 0742, Until Wed10/08/20 at 1149, Anesthesia Intra-op propofoL (Diprivan) infusion New Bag 10/08/2020 7:45 AM 50 mcg/kg/min 28.71 mL/hr Intravenous, CONTINUOUS PRN, EDT Starting on Wed10/08/20 at 0745, Until Wed10/08/20 at 1149, Anesthesia Intra-op, Routine rocuronium (Zemuron) (10 mg/mL) multi-dose Given 10/08/2020 8:30 AM EDT 10 mg injection Intravenous, PRN, Starting on Wed10/08/20 at 0742, Until Wed10/08/20 at 1149, Anesthesia Intra-op, Routine Given 10/08/2020 7:42 AM EDT 60 mg documented in this encounter Care Teams Assistant Tennis Coach Relationship Specialty Start Date End Date Iliana Hurt APRN PCP - General Family Medicine 07/18/20 [address] [facility] [place] [address] documented as of this encounter
--- OUTSIDE RECORDS SUMMARY | 2021-08-22 00:16 | XMS_ITS | Encounter Summary ---
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 INT RAHEPATIC PORTAL Drive DR SHUNT (WRVU 16.97) [place] [address] DIAGNOSTIC [phone] RADIOLOGY [place], [place] 0375 (Wo rk) Social History Tobacco Use Types Packs/Day Years Used Date Never Smoker Smokeless Tobacco: Never Used Alcohol Use Standard Drinks/Week Comments Not Currently 0 (1 standard drink = 0.6 oz pure alcoho l) Sex Assigned at Date Recorded Not on file documented as of this encounter Last Filed Vital Signs Vital Sign Reading Time Taken Comments Blood Pressure 133/61 10/08/2020 6:36 AM EDT Pulse 62 10/08/2020 6:36 AM EDT Temperature 36.6 ??C (97.9 ??F) 10/08/2020 6:36 AM EDT Respiratory Rate 16 10/08/2020 6:36 AM EDT Oxygen Saturation 98% 10/08/2020 6:36 AM EDT Inhaled Oxygen Concentration - - Weight 95.7 kg (211 lb) 10/08/2020 6:36 AM EDT Height 162.6 cm (5' 4) 10/08/2020 6:36 AM EDT Body Mass Index 36.22 10/08/2020 6:36 AM EDT documented in this encounter Discharge Instructions Discharge InstructionsSukhDoc Robb - 10/09/2020 1:49 PM EDT [facility] Vascular and Interventional Radiology Transjugular [...] is during regular office hours, please call [phone]. If it is after regular office hours, oron weekends or holidays, please call [phone] and ask to speak to the Sr. Logistics Analyst on callfor Interventional Radiology. XX You have [...] 2020 11:30 - Dr. Hi's office at [facility] Gastroenterology will call you directly to schedule a follow up visit. - We will schedule you for a blood draw, likely at the end of the week. We will notify you when thisis scheduled. Your Inpatient Doctor(s) at [facility]: - Dr. Tatyana Coyne [...] Curry RN - 10/09/2020 2:31 PM EDT [facility] Short Stay Unit Discharge Note All relevant [...] pt, has f/u with pcp & at [facility], has script at local pharmacy, verbalized understanding. [...] Yes, see above Preferred [facility]: [id number] [facility] & [address] [phone] This plan was formulated with input from patient, Janice Rivers, and team. All are in agreement with plan. Yanni Dale RN Case Senior Managing Director of Care Management Vidal Delgado MD - [...] 109* 99* Last 3 Lytes Recent Labs 10/09/20 0315 10/08/20 0559 NA 138 140 K 4.4 [...] weeks as outpatient (OKto be done at [facility], which is located closer to the patient). Vidal Delgado MD Diagnostic and Interventional Radiology (PGY 6) Pager No.: [phone] Saul Curry RN - 10/08/2020 6:18 PM [...] and transfer 1315: Report given to Saul HARRELLhuman resources services specialist to short stay 02 Vidal Delgado MD [...] pain ID: 54 y.o. Female presents to [facility] for TIPS History of Present Illness: AISHWARYA Rivers is a 54 y.o. 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 Patient is followed by Dr. Hi at [facility] and was referred to IR for TIPS [...] Supplies (Convatec Night Drain Container) Misc by [facility].(Non-Drug; Combo Route) route. 10/07/2020 at Unknown time [...] IJV by ultrasound ?? Pressure measurements following ETHOLOGIST of parenchymal tract to 8 mm: Main [...] ?? Pressure measurements following TIPS creation and ETHOLOGIST to 8 mm: Main portal vein 12 [...] Admit to follow with Hospital Medicine (pager [phone]) - signout provided tothe admitting team. IR will also follow. Assessment: Janice Rivers is a 54 y.o. woman with PMH of DAMON cirrhosis with portal HTN and peristomal varices, colon CA s/p colectomy 2019, pre-diabetes, obesity admitted to [facility] for monitoring post TIPS [...] Signature POC Glucose 174 65 - 199 [facility] mg/dL [facility] Comment: Supplemental ranges: <140 mg/dL before meals <180 mg/dL all other times of the day Specimen Anatomical Collection Method Collection Time Receive d Time (Source) Location / / Volume Laterality Blood 10/09/2020 11:22 10/09/2020 AM EDT 11:22 AM EDT Alek Berman MD POINT OF CARE TEST ORDERABLE S Performing Organization Address City/State/[place] [address] POCT Glucose (10/09/2020 7:24 AM EDT) P athologist Signature POC Glucose 164 65 - 199 [facility] mg/dL [facility] Comment: Supplemental ranges: <140 mg/dL before meals <180 mg/dL all other times of the day Specimen Anatomical Collection Method Collection Time Receive d Time (Source) Location / / Volume Laterality Blood 10/09/2020 7:24 AM 7:24 EDT AM EDT Alek Berman MD POINT OF CARE TEST ORDERABLE S Performing Organization Address City/State/ZIP Code Phon e Number [address] (ABNORMAL) Differential, Automated (10/09/2020 3:15 AM EDT) Patholo gist Method Time Signature Neutrophils % 88.0 % [facility] Neutr Abs (ANC) 10.48 (H) 1.70 - [facility] 6.10 [facility] x10(3)/[facility] L LABORATORY Lymphocytes % 5.9 % [facility] Lymphocytes Abs 0.7 (L) 0.9 - 3.2 [facility] x10(3)/[facility] LABORATORY Monocytes % 5.4 % [facility] Monocyte Abs 0.6 0.3 - 0.9 [facility] x10(3)/[facility] LABORATORY Eosinophils % 0.0 % [facility] Eosinophils Abs 0.0 0.0 - 0.4 [facility] x10(3)/[facility] LABORATORY Basophils % 0.2 % [facility] Basophils Abs 0.0 0.0 - 0.1 [facility] x10(3)/[facility] LABORATORY Immature Gran % 0.50 % [facility] Comment: Immature granulocytes(IG's)percentage an d absolute count will include metamyelocytes, myelocytes, and promyelo cytes. Blood smears from CBCs yielding IG's will be scanned manually for concching danoracio. If this scan disagrees with the automated IG or if promyelocytes are not ed, a manual differential will be performed. [place] Gran Abs 0.06 (H) 0.00 - 0.04 x10(3)/[facility] LABORATORY Specimen Anatomical Collection Method Collection Time Receive d Time (Source) Location / / Volume Laterality Blood 10/09/2020 3:15 AM 1 3:19 EDT AM EDT Resulting Agency Comment Spec In Lab Nicolle Miranda MD HEMATOLOGY ORDERABLES Performing Organization Address City/State/[place] [address] (ABNORMAL) Hemogram (10/09/2020 3:15 AM EDT) Analysis Performed At Patho logist Time Signature WBC 11.9 (H) 4.0 - 9.5 [facility] x10(3)/[facility] LABORATORY RBC 4.33 4.00 - [facility] 5.21 [facility] x10(6)/[facility] LABORATORY Hemoglobin 13.7 11.7 - [facility] 15.[facility] gm/dL [facility] Hematocrit 40.2 35.7 - [facility] 45.8 % [facility] MCV 92.8 82.6 - [facility] 94.4 [facility] LABORATORY MCH 31.6 27.1 - [facility] 32.0 pg [facility] MCHC 34.1 31.7 - [facility] 35.0 gm/dL [facility] Platelets 109 (L) 145 - 357 [facility] x10(3)/[facility] LABORATORY RDWSD 48.8 (H) 37.0 - [facility] 46.0 [facility] LABORATORY RDWCV 14.1 11.5 - [facility] 14.1 % [facility] MPV 11.4 7.6 - 12.9 [facility] LABORATORY nRBC % Auto 0.0 % [facility] nRBC Abs Auto 0.000 0.000 - [facility] 0.000 [facility] x10(3)/[facility] LABORATORY Specimen Anatomical Collection Method Collection Time Receive d Time (Source) Location / / Volume Laterality Blood 10/09/2020 3:15 AM 3:19 EDT AM EDT Resulting Agency Comment Spec In Lab Nicolle Miranda MD HEMATOLOGY ORDERABLES Performing Organization Address City/State/[place] [address] (ABNORMAL) Basic Metabolic Panel (non-fasting) (10/09/2020 3:15 AM EDT) P athologist Signature Glucose Lvl 167 65 - 199 [facility] mg/dL [facility] Comment: Diabetes: >=200 mg/dL plus symp toms BUN 11 8 - 18 mg/dL [facility] Creatinine 0.63 (L) 0.70 - 1.20 mg/dL [facility] Sodium 138 135 - 145 mmol/L [facility] Potassium 4.4 3.5 - 5.0 mmol/L [facility] Comment: Please note: ??Patients with WBC >100,00 0 may have falsely elevated Potassium levels. ??For accurate Potassium quantif ication in these patients send serum separator tube (gold top) for subsequent determinations. ??Contact the Clinical Chemistry Laboratory if there are any qu estions. Chloride 104 98 - 107 mmol/L [facility] CO2 24 22 - 31 mmol/L [facility] Anion Gap 10 5 - 15 mmol/L [facility] Calcium 8.5 8.5 - 10.5 mg/dL [facility] Estimated GFR 102 >=60 mL/min/1.73 m?? [facility] Comment: This patient? s [...] Miranda MD CHEMISTRY ORDERABLES Performing Organization Address City/[facility]/[place] [address] (ABNORMAL) Prothrombin Time (10/09/2020 3:15 AM EDT) P athologist Signature PT 17.5 (H) 9.4 - 12.5 [facility] LABORATORY INR 1.5 [facility] Comment: An INR <2.0 [...] Miranda MD HEMATOLOGY ORDERABLES Performing Organization Address City/[facility]/[place] [address] (ABNORMAL) Hepatic Function Panel (10/09/2020 3:15 AM EDT) P athologist Signature Total Protein 6.4 6.1 - 8.0 [facility] gm/dL [facility] Albumin 3.5 3.2 - 5.2 [facility] gm/dL [facility] AST 68 (H) 0 - 30 [facility] unit/L [facility] Comment: result rechecked-cecile ALT 35 (H) 0 - 30 unit/L [facility] Comment: result rechecked-cecile Alk Phos 76 35 - 105 unit/L [facility] Total Bilirubin 1.7 (H) 0.2 - 1.3 mg/dL [facility] Bili, Direct 0.7 (H) 0.0 - 0.3 mg/dL [facility] Specimen Anatomical Collection Method Collection Time Receive d Time (Source) Location / / Volume Laterality Blood 10/09/2020 3:15 AM 1 3:19 EDT AM EDT Resulting Agency Comment Spec In Lab Nicolle Miranda MD CHEMISTRY ORDERABLES Performing Organization Address City/[facility]/[place] [address] POCT Glucose (10/08/2020 11:46 AM EDT) P athologist Signature POC Glucose 142 65 - 199 [facility] mg/dL [facility] Comment: Supplemental ranges: <140 mg/dL before meals <180 mg/dL all other times of the day Specimen Anatomical Collection Method Collection Time Receive d Time (Source) Location / / Volume Laterality Blood 10/08/2020 11:46 10/08/2020 AM EDT 11:46 AM EDT Alek Berman MD POINT OF CARE TEST ORDERABLE S Performing Organization Address City/[facility]/[place] [address] (ABNORMAL) Prothrombin Time (10/08/2020 5:59 AM EDT) P athologist Signature PT 14.4 (H) 9.4 - 12.5 [facility] LABORATORY INR 1.3 [facility] Comment: An INR <2.0 [...] Organization Address City/State/[place] [address] (ABNORMAL) Comprehensive metabolic panel (non-fasting) (10/08/2020 5:59 AM EDT) athologist Signature Glucose Lvl 137 65 - 199 [facility] mg/dL [facility] Comment: Diabetes: >=200 mg/dL plus symp toms BUN 12 8 - 18 mg/dL [facility] Creatinine 0.52 (L) 0.70 - 1.20 mg/dL [facility] Sodium 140 135 - 145 mmol/L [facility] Potassium 3.9 3.5 - 5.0 mmol/L [facility] Comment: Please note: ??Patients with WBC >100,00 0 may have falsely elevated Potassium levels. ??For accurate Potassium quantif ication in these patients send serum separator tube (gold top) for subsequent determinations. ??Contact the Clinical Chemistry Laboratory if there are any qu estions. Chloride 106 98 - 107 mmol/L [facility] CO2 22 22 - 31 mmol/L [facility] Anion Gap 12 5 - 15 mmol/L [facility] Calcium 9.2 8.5 - 10.5 mg/dL [facility] Total Protein 7.4 6.1 - 8.0 gm/dL [facility] Albumin 4.1 3.2 - 5.2 gm/dL [facility] AST 35 (H) 0 - 30 unit/L [facility] ALT 18 0 - 30 unit/L [facility] Alk Phos 82 35 - 105 unit/L [facility] Total Bilirubin 1.5 (H) 0.2 - 1.3 mg/dL [facility] Estimated GFR 108 >=60 mL/min/1.73 m?? [facility] Comment: This patient? s [...] Organization Address City/State/ZIP Code Phon e Number [place] [id number] (ABNORMAL) Hemogram (10/08/2020 5:59 AM EDT) Analysis Performed At Patho logist Time Signature WBC 5.6 4.0 - 9.5 [facility] x[facility](3[facility] LABORATORY RBC 4.73 4.00 - [facility] 5.21 [facility] x10(6)/[facility] LABORATORY Hemoglobin 15.0 11.7 - [facility] 15.5 gm/dL [facility] Hematocrit 45.1 35.7 - [facility] 45.8 % [facility] MCV 95.3 (H) 82.6 - [facility] 94.4 [facility] LABORATORY MCH 31.7 27.1 - [facility] 32.0 pg [facility] MCHC 33.3 31.7 - [facility] 35.0 gm/dL [facility] Platelets 99 (L) 145 - 357 [facility] x[facility](3[facility] LABORATORY RDWSD 51.6 (H) 37.0 - [facility] 46.0 [facility] LABORATORY RDWCV 14.5 (H) 11.5 - [facility] 14.1 % [facility] MPV 11.8 7.6 - 12.9 [facility] LABORATORY nRBC % Auto 0.0 % [facility] nRBC Abs Auto 0.000 0.000 - [facility] 0.000 [facility] x10(3)/[facility] LABORATORY Specimen Anatomical Collection Method Collection Time Receive d Time (Source) Location / / Volume Laterality Blood 10/08/2020 5:59 AM 6:01 EDT AM EDT Resulting Agency Comment Spec In Lab Rob Huitron MD HEMATOLOGY ORDERABLES Performing Organization Address City/State/[place] [address] documented in this encounter Visit Diagnoses Not on filedocumented in this encounter Admitting Diagnoses Diagnosis S/P [...] Prophylaxis ferrous gluconate (Fergon) tablet 324 mg 905 (Given - Provider: Saul Curry RN) 324 mg, Oral, DAILY, First dose on Wed at 0900, Until Discontinued, Routine insulin lispro (HumaLOG;Admelog) (100 un it/mL) subcutaneous injection vial 1-5 Units(Linked Group 1) 1702 (Not Given - Provider: Saul Curry RN - Reason: Patient/family refused) 0730 (Not Given - Provider: Matilda cade LPN - Reason: Patient/family refused)1127 (Given - Provider: Saul Curry, SHARRI) 1-5 Units, Subcutaneous, 3 TIMES DAILY B [...] 072 0 (New Bag - Provider: Jossy Farias RN)0734 (Paused - Provider: Ganesh Coon - Comment: Switch to gravity)0735 (New Bag - Provider: Ganesh Coon)1108 (Anesthesia Volume Adjustment - Provider: Ganesh Coon) 1,000 mL, at 100 mL/hr, Intravenous, CON TINUOUS, Starting on Wed10/08/20 at 0700, Until Wed10/08/20 at 1335, Day of Surgery (Day of Procedure) 1435 (Stopped - Provider: Saul Curry, SHARRI) PRN Medication Order 10/07/2020 10/08/2020 10/09/2020 acetaminophen [...] Wang RN) 1025 (Given - Provider: Azeem Shields RN) 5 mg, Oral, EVERY 4 HOURS PRN, Starting on Wed10/08/20 at 1411, Until Wed10/09/20 at 1710, Pain, Routine prochlorperazine (Compazine) (5 mg/mL) injection 5 mg (CANCE LED) 1239 (Given - Provider: Sheryl Campos RN) 5 mg, Intravenous, EVERY 30 MIN PRN, [...] or Regular (not diet) soda OR If HEAT TREAT SUPERVISOR O, give 15 gram glucose 40% oral [...] first.
documented in this encounter Care Teams Architectural Examiner Relationship Specialty Start Date End Date Iliana Hurt APRN PCP - General Family Medicine 07/18/20 [place] [address] documented as of this encounter
--- OUTSIDE RECORDS SUMMARY | 2021-08-22 00:16 | XMS_ITS | Clinical Summary ---
:1965 Author Organization [facility] [place] [address] Care Team Providers Name Role Phone Iliana Hurt APRN Primary Care Provider Allergies Active Allergy Reactions Severity Noted Date Comments Codeine Other (See Comments) 06/22/2013 surgery Ibuprofen Other (See Comments) 06/22/2013 surgery Medications Medication Sig Dispensed Refills Start Date End Date Status metFORMIN (Glucophage) Take 500 mg by 0 Active 500 mg Tablet mouth 2 times daily (with meals). 1,000 mg twice a day ferrous gluconate Take 324 mg by 0 Active (Fergon) 324 mg (37.5 mg mouth daily. iron) Tablet methylphenidate (RITALIN) Take 20 mg by 0 Active 20 mg Tablet mouth 3 times daily. Ostomy Supplies (Convatec by 0 Active Night Drain Container) Misc.(Non-Drug; Misc Combo Route) route. oxyCODONE (Roxicodone) 5 Take 1 tablet 10 tablet 0 10/09/2020 Active mg Tablet by mouth every 4 hours as needed for Pain. Active Problems Problem Noted Date S/P TIPS (transjugular intrahepatic portosystemic shun t) 10/08/2020 Hx of colon cancer, stage III 06/22/2013 H/O colectomy 06/22/2013 Back pain 06/22/2013 Social History Tobacco Use Types Packs/Day Years Used Date Never Smoker Smokeless Tobacco: Never Used Alcohol Use Standard Drinks/Week Comments Not Currently 0 (1 standard drink = 0.6 oz pure alcoho l) Sex Assigned at Date Recorded Not on file Last Filed Vital Signs Vital Sign Reading [...] Mass Index 36.22 10/08/2020 6:36 AM EDT Plan of Treatment Health Maintenance Due Date Last Done Comments Covid-19 Vaccine (#1) 1970 HIV screen 11/19/1983 Hepatitis C Screening 11/19/1983 Lipid Screening 11/19/1983 Tdap adult 1984 Tetanus vaccine 1984 HPV test 11/19/1995 PAP Smear 11/19/1995 Breast Cancer Share Decision Needed 2005 Colonoscopy 2010 Breast Cancer screening 11/19/2015 Zoster vaccine (1 of 2) 11/19/2015 Influenza (Flu) vaccine (1 of 1 - 10/23/2020 Influenza standard series) Advance Directive 2020 Diabetes Screening (HgbA1C or Glucose) 10/10/2023 , 10/08/2020 Medical Devices Implanted Type Area Varnish Inspector Device Shelf Model / Identifier Expiration Serial / Date Lot Stent Lifestar [id number] Otw Nit ([id number])-10/08/2020 IMPLANTS Liver CR [employer] - CR 04/19/2023 [id number] / Implanted: Qty: 1 on 10/08/2020 by Gordon Fang MD BARD / [id number] Description: 10MM X 40MM LIFESTAR STENT Insurance Payer Benefit Plan / Subscriber ID Effective Dates Phone Addre ss Type Group MEDICARE MEDICARE PART [id number] 2020-Presen [phone] [id number] [place] [id number] [place] [id number] 2020-Prese [phone] [address] [place] [address] Advance Directives Latest Code Status on File Code Status Date Activated Date Inactivated Comments Attempt Cardiopulmonary Resuscitation - 10/08/2020 6:57 AM 021 4:35 AM Inpatient Code Status decision made by: Patient Care Teams Insights Analyst Relationship Specialty Start Date End Date Iliana Hurt APRN PCP - General Family Medicine 07/18/20 [address] [place] [address]
--- OUTSIDE RECORDS SUMMARY | 2021-08-22 00:16 | XMS_ITS | Encounter Summary ---
:1965 [place] [address] Care Team Providers Name Role Phone Iliana Hurt APRN Primary Care Provider Encounter Details Date Type Department Care Team Description 09/05/2020 TH Visit Interventional Denys Rocha, Hepatic c irrhosis, (TeleHealth) Radiology at [facility] DO unspecified hepatic [facility] cirrhosis type, Drive [address] [place] [address] RADIOLOGY ascites present [phone] [place] [address] Social History Tobacco Use Types Packs/Day Years Used Date Never Smoker Sex Assigned at Date Recorded Not on file documented as of this encounter H&P Notes Denys Rocha, DO - 09/05/2020 1:00 PM EDT Images from the original note were not included. INTERVENTIONAL RADIOLOGY FOCUSED CONSULTATION, H&P and PRE-PROCEDURE NOTE: PCP: Iliana Hurt APRN Referring Provider: Dr. Juani Hi and Dr. Rob Huitron Planned Procedure: Planned procedure: TIPS Creation Procedure Indication: DAMON Cirrhosis. Recurrent ostial bleeding. Portal Hypertension. Presenting Diagnosis/ Complaint: Janice Rivers is a 54 y.o. female presenting in consultation at the request of Dr. Juani Hi and Dr. Rob Huitron as well as the patient herself for recurrentostial bleeding in the setting of DAMON Cirrhosis and Portal Hypertension for consideration of TIPSS creation. Past medical history is significant for obesity, pre-diabetes, colon carcinoma status post colonic resection and colostomy creation in 2019. The patient was recently diagnosed with macrocytosis. The patient was followed by Dr. Hi at [facility]. The patient has had recurrent episodes of variceal bleeding related to her ostomy. The patient underwent [facility] whichrevealed a normal echocardiogram and a conventional hepatic vein/portal vein anatomy. IR History: None Antiplatelets: None. Anticoagulants: None. Recent Laboratories: ??? No recent laboratories in our system nor in scanned documents. Reported history of thrombocytopenia. ??? Getting Laboratories Before Procedure: Hemogram, Coagulation Panel, and CMP. Allergies: Codeine and Ibuprofen. Past Medical/Surgical History: Patient Active Problem List Diagnosis Code ??? Hx of colon cancer, stage III Z85.038 ??? H/O colectomy Z90.49 ??? Back pain M54.9 Past Medical History: Diagnosis Date ??? H/O colectomy 06/22/2013 No past surgical history on file. Medications: Bengay Metformin Vitamin D Iron Supplement Methyphendiate Allergies: Codeine and Ibuprofen Social History and Habits: Social History Socioeconomic History ??? Marital status: Single Spouse name: Not on file ??? Number of children: Not on file ??? Years of education: Not on file ??? Highest education level: Not on file Occupational History ??? Not on file Tobacco Use ??? Smoking status: Never Smoker Substance and Sexual Activity ??? Alcohol use: Not on file ??? Drug use: Not on file ??? Sexual activity: Not on file Other Topics Concern ??? Not on file Social History Narrative ??? Not on file Social Determinants of Health Financial Resource Strain: ??? Difficulty of Paying Living Expenses: Food Insecurity: ??? Worried About Running Out of Food in the Last Year: ??? Ran Out of Food in the Last Year: Transportation Needs: ??? Lack of Transportation (Medical): ??? Lack of Transportation (Non-Medical): Physical Activity: ??? Days of Exercise per Week: ??? Minutes of Exercise per Session: Significant Family History: No family history on file. Pertinent ROS: as per HPI Labs: Imaging: Physical Exam: Pending (to be performed in angio the day of procedure) ASA: Pending (to be assessed in angio the day of procedure) Mallampati Class: Pending (to be assessed in angio the day of procedure) Discussion: Today, Ms. Rivers and I dicussed the TIPSS Procedure. In brief, I described the transjugular intrahepatic portosystemic shunt (TIPS) as a medical procedure in which a stent graft is used to connect the 2 blood vessels in the liver, portal vein and hepaticvein. Portal veins are the blood vessels that carry blood into the liver. Hepatic veins are blood vessels not draining blood from the liver. Transjugular means that we go through the vein in the neck. Intrahepatic stent replaced the stent graft through the hepatic parenchyma itself. Portosystemic moving that we are connecting the portal veins and hepatic veins. And shunt alluding that we are creating bypass of the liver through the shunt. I described that this procedure is done from multiple different reasons including variceal bleeding and ascites. Given her history recurrent bleeding from her ostomy, that the reason would be doing this is to decrease the pressure on the portal system to reduce the bleeding from her ostomy. I described that we do this procedure with general anesthesia in which the patient will be complete and sedated and intubated throughout the procedure. The patient will require admission to the hospital following the procedure, typically for 1 to 2 days. I reported that there are risks to the procedure which include new or worsening hepatic encephalopathy (mild confusion, trouble concentrating, changes in their sleep-wake cycle), which most of the timecan be managed with oral medications. In addition I reported a small risk of progression of hepatic failure as well as related to the procedure. Hemorrhage (bleeding) from the procedure itself, while typically small in volume, has been reported to be large requiring repeat interventions. Ms. Lei asked specifically about her thrombocytopenia (low platelets) and its effect on the procedure. Per report, her platelets have been in the high 80s to low 100s, which would be within the safe range for the procedure. If her platelets were significantly lower, she may require platelet transfusions during the procedure. I reported that we typically do this procedure in patients that have altered hepatic function and therefore are prone to thrombocytopenia. Assessment: 54 y.o. female with DAMON cirrhosis with portal hypertension complicated by recurrent variceal bleeding. Plan: Plan Planned procedure: TIPS Creation Labs to be performed day of procedure: Hemogram, Coags, CMP Sedation: Anesthesia Prophylactic antibiotic : Unasyn Contrast: Omnipaque, CO2 Additional medications for procedure: Lidocaine Planned access site: Right IJ Position: Supine Consent: Pending Medications to discontinue (and days held): None Cytopathology presence needed: No Case Urgency:: G- Other (non E or F elective cases) 09/10/2020 Over 20 minutes of this 30 minute visit were spent in counseling and coordination of care. Denys Rocha DO, MPH Staff Physician - Interventional Radiology Pager [phone] documented in this encounter Plan of Treatment Not on filedocumented as of this encounter Visit Diagnoses Diagnosis Hepatic cirrhosis, unspecified hepatic c irrhosis type, unspecified whether ascites present documented in this encounter Care Teams [employer] Architect Relationship Specialty Start Date End Date Iliana Hurt APRN PCP - General Family Medicine 07/18/[address] [place] [address] [place] [address] documented as of this encounter
--- OUTSIDE RECORDS SUMMARY | 2021-08-22 00:17 | XMS_ITS | Encounter Summary ---
:1965 Author Organization [facility] Address [address] [place] [address] Care Team Providers Name Role Phone VernellquincyIliana pleitez KENNETH Primary Care Provider Encounter Details Date Type Department Care Team Description 01/09/2021 Lab Requisition [facility] Outr Resulting Lab, Pathology & Laboratory Provider [facility] [address], [place] [id number] Social History Tobacco Use Types Packs/Day Years Used Date Never Assessed Sex Assigned at Date Recorded Not on file documented as of this encounter Plan of Treatment Not on filedocumented as of this encounter Procedures Procedure Name Priority Date/Time Associated Diagnosis Comme nts HEPATITIS C AB W Routine 01/09/2021 8:52 EST Resu lts for this REFLEX TO HCV RNA procedure are in BY PCR the results section. HEPATITIS B SURFACE Routine 01/09/2021 8:52 EST R esults for this ANTIBODY procedure are i n the results section. HEPATITIS B SURFACE Routine 01/09/2021 8:52 EST R esults for this ANTIGEN procedure are i n the results section. documented in this encounter Results HEPATITIS B SURFACE ANTIBODY (01/09/2021 8:52 EST) Hep B Surface Ab, >1000.0 See Note [facility] Quantitative Comment: mIU/mL [facility] Reference Range for Hep B Surface Ab, Quant: SERVICES Positive: >= 10.0 mIU/mL Negative: ??< 10.0 mIU/mL Patient is presumed to be immune to infection with Hep atitis B Virus. Hep B Surface Ab, Positive See Note [facility] Qualitative Comment: [facility] Reference Range for Hep B Surface Ab, Qual: SERVICES Unvaccinated: ??Negative Vaccinated: ??Positive Specimen Blood - Venous blood (substance) Performing Organization Address City/[facility]/ZIP Code Phon e Number [facility] [address] [place] [address] SERVICES HEPATITIS B SURFACE ANTIGEN (01/09/2021 8:52 EST) Pathologist Sig nature Hep B Surface Ag Negative Negative [facility] SERVICES Specimen Blood - Venous blood (substance) Performing Organization Address [facility] Phon e Number [facility] [address] [place] [address] SERVICES HEPATITIS C AB W REFLEX TO HCV RNA BY PCR (01/09/2021 8:52 EST) Pathologist Sig nature Hep C Antibody Negative Negative [facility] [place] SERVICES Specimen Blood - Venous blood (substance) Performing Organization Address [facility] Phon e Number [facility] [address] [place] [address] SERVICES documented in this encounter Visit Diagnoses Not on filedocumented in this encounter Care Teams Utility Mechanic Relationship Specialty Start Date End Date Iliana Hurt NP PCP - General 10/03/[address] [place] [address] documented as of this encounter
--- OUTSIDE RECORDS SUMMARY | 2021-08-22 00:17 | XMS_ITS | Encounter Summary ---
:1965 Author Organization [facility] Address [address] [place] [address] Care Team Providers Name Role Phone Iliana Hurt CARE MANAGEMENT SPECIALIST Primary Care Provider Encounter Details Date Type Department Care Team Description 05/02/2020 Lab Requisition [facility] Iliana Hurt, En counter for general adult medical examination without abnormal findings; Pathology & CARE MANAGEMENT SPECIALIST Encounter for screening for malignant ne oplasm of cervix; Laboratory Medicine [address] Encounter for screening for human papill omavirus (HPV) - [place], [place] [address] [facility] [address] [place], [place] [phone] (Work) [phone] Social History Tobacco Use Types Packs/Day Years Used Date Never Assessed Sex Assigned at Date Recorded Not on file documented as of this encounter Plan of Treatment Not on filedocumented as of this encounter Procedures Procedure Name Priority Date/Time Associated Diagnosis Comme nts PAP TEST Today 05/01/2020 10:30 Encounter for general Re sults for this EST adult medical procedure are in examination without the resu lts abnormal finding s section. Encounter for screening for malignant neoplasm of cervix Encounter for screening for human papillomavirus (HPV) HUMAN PAPILLOMAVIRUS Today 05/01/2020 10:30 Encounter for ge neral Results for this (HPV) DETECTION-HIGH EST adult medical proced ure are in RISK TYPES examination without the resu lts abnormal finding s section. Encounter for screening for malignant neoplasm of cervix Encounter for screening for human papillomavirus (HPV) documented in this encounter Results HUMAN PAPILLOMAVIRUS (HPV) DETECTION-HIGH RISK TYPES (05/01/2020 10:30 EST) Human Papillomavirus NegativeComment: No Negative [facility] (HPV) Detection-High E6 or E7 mRNA is CENTER LABORATOR Y Types detected from HPV SERVICES types 16,18,31,33,35,39,45 ,51,52,56,58,59,66, and 68 by substation operator automatic mediated amplification. Specimen Pap Test - Cervix and/or Endocervix Performing Organization Address City/State/ZIP Code Phon e Number [facility] [address] [place] [address] SERVICES PAP TEST (05/01/2020 10:30 EST) Specimens A. Cervix and/or UV MEDICAL Endocervix , ThinPrep CENTER Imaging System with LABORATORY Manual Evaluation SERVICES Specimen Adequacy Satisfactory for [facility] Evaluation - CENTER transformation zone LABORATORY component present SERVICES General Negative for [facility]ICAL Categorization intraepithelial CENTER lesion or malignancy LABORATORY SERVICES Descriptive Reactive cellular [facility] Diagnosis changes associated CENTER with inflammation LABORATORY present (includes SERVICES repair). Attestation By the signature below, the attending physician certifies that they have personally conducted a gross and/or microscopic [facility] Electronically examination of the described specimens and rendered or confirmed the above diagnosis. CENTER signed by CATE Riley MD on SERVICES 05/09/2020 at 09 37 Clinical History See below [facility] SERVICES HPV The result for the Human Pap illomavirus (HPV) Detection-High Risk Types is Negative. No E6 or E7 mRNA is detected from HPV types 16,18,31,33,35,39,45,51,52,56,58,59,66, and 68 by substation operator automatic mediated [facility] amplification.Testing was pe rformed on specimen [id number] and was resulted on 05/08/2020 1447 EDT by FELIBERTO, LAB INSTRUMENT RESULTS IN [facility] SERVICES Performing Lab [facility] SERVICES Scanned Images [facility] SERVICES Specimen Pap Test - Cervix and/or Endocervix Performing Organization Address City/State/ZIP Code Phon e Number [facility] [address] [place] [address] SERVICES documented in this encounter Visit Diagnoses Diagnosis Encounter for general adult medical exam ination without abnormal findings Unspecified general medical examination Encounter for screening for malignant ne oplasm of cervix Screening for malignant neoplasm of the cervix Encounter for screening for human papill omavirus (HPV) Special screening examination for human papillomavirus (HPV) documented in this encounter Care Teams Services Rep Relationship Specialty Start Date End Date Iliana Hurt, KENNETH PCP - General 10/03/18 [address] [place] [address] documented as of this encounter
--- OUTSIDE RECORDS SUMMARY | 2021-08-22 00:17 | XMS_ITS | Encounter Summary ---
:1965 Author Organization [facility] Address [address] [place] [address] Care Team Providers Name Role Phone VernellquincyIliana pleitez KENNETH Primary Care Provider Encounter Details Date Type Department Care Team Description 07/01/2020 Lab Requisition [facility] Outr Resulting Lab, Pathology & Laboratory Provider [facility] [address] [place], [place] [address] Social History Tobacco Use Types Packs/Day Years Used Date Never Assessed Sex Assigned at Date Recorded Not on file documented as of this encounter Plan of Treatment Not on filedocumented as of this encounter Procedures Procedure Name Priority Date/Time Associated Comments Diagnosis CELIAC DISEASE PANEL Today 07/01/2020 11:05 Res ults for this EDT procedure are i n the results section. HOLD SST Today 07/01/2020 11:05 Results for this EDT procedure are i n the results section. ALPHA 1 ANTITRYPSIN Today 07/01/2020 11:05 Resu lts for this EDT procedure are i n the results section. documented in this encounter Results HOLD SST (07/01/2020 11:05 EDT) Pathologist Sig nature Hold Hold [facility] Y SERVICES Specimen Blood - Venous blood (substance) Performing Organization Address City/[facility]/ZIP Code Phon e Number [facility] [address] [place] [address] SERVICES ALPHA 1 ANTITRYPSIN (07/01/2020 11:05 EDT) Pathologist Sig nature Alpha 1 Antitrypsin 155 90 - 200 mg/dL [facility] SERVICES Specimen Blood - Venous blood (substance) Performing Organization Address City/State/ZIP Code Phon e Number [facility] [address] [place] [address] SERVICES (ABNORMAL) CELIAC DISEASE PANEL (07/01/2020 11:05 EDT) Tissue 1.2 <4.0 U/mL [facility] Transglutaminase Comment: CENTER Antibody IGA A negative result may be due to IgA deficiency and does not rule out celiac disease. LABORATORY SERVICES ? Negative: ??<4.0 U/mL ? Weak Positive: ??4.0 - 10.0 U/mL ? Positive: ??>10.0 U/mL Results were obtained with александр FonemeshA Harperlabze R h-tTG IgA MATT assay on the [employer] DSX. IgA 557 (H) 85 - 499 [facility] mg/dL CENTER LABORATORY SERVICES Celiac Disease Negative Serology. [facility] Interpretation Celiac disease CENTER unlikely. LABORATORY Approximately 10% of SERVICES patients with celiac disease are seronegative. Patients who are already adhering to a gluten-free diet may also be seronegative. If celiac disease is highly clinically suspected, referral to gastroenterology for additional evaluation is recommended. Specimen Blood - Venous blood (substance) Performing Organization Address City/State/ZIP Code Phon e Number [facility] [address] [place] [address] SERVICES documented in this encounter Visit Diagnoses Not on filedocumented in this encounter Care Teams Senior Safety Support Manager Relationship Specialty Start Date End Date Iliana Hurt NP PCP - General 10/03/18 [address] [facility], [place] [address] documented as of this encounter
--- OUTSIDE RECORDS SUMMARY | 2021-08-22 00:17 | XMS_ITS | Encounter Summary ---
:[address] [facility] Address [address] [place] [address] Care Team Providers Name Role Phone Iliana Hurt CARBON PAPER COATING SUPERVISOR Primary Care Provider Encounter Details Date Type Department Care Team Description 01/09/2021 Lab Requisition [facility] Outr Resulting Lab, Pathology & Laboratory Provider [facility] [address] [place], [place] [address] Social History Tobacco Use Types Packs/Day Years Used Date Never Assessed Sex Assigned at Date Recorded Not on file documented as of this encounter Plan of Treatment Not on filedocumented as of this encounter Procedures Procedure Name Priority Date/Time Associated Comments Diagnosis ALPHA 1 ANTITRYPSIN Routine 01/09/2021 8:52 EST R esults for this procedure are i n the results section. documented in this encounter Results ALPHA 1 ANTITRYPSIN (01/09/2021 8:52 EST) Pathologist Sig nature Alpha 1 Antitrypsin 156 90 - 200 mg/dL [facility] SERVICES Specimen Blood - Venous blood (substance) Performing Organization Address City/State/[facility] Code Phon e Number [facility] [address] [place] [address] SERVICES documented in this encounter Visit Diagnoses Not on filedocumented in this encounter Care Teams Pot Firer Relationship Specialty Start Date End Date Iliana Hurt NP PCP - General 10/03/18 [facility] [place] [id number] documented as of this encounter
--- OUTSIDE RECORDS SUMMARY | 2021-08-22 00:17 | XMS_ITS | Encounter Summary ---
:1965 [place] [address] Care Team Providers Name Role Phone Blank He ASSISTANT MERCHANDISER Primary Care Provider [phone] Encounter Details Date Type Department Care Team Description 08/10/2012 Orders Only Functional Mandaeism Ronen Viveros APRN Program at [facility] [address] [place] [address] [place], [place] [address] [phone] (Wo rk) Social History Tobacco Use Types Packs/Day Years Used Date Never Assessed Sex Assigned at Date Recorded Not on file documented as of this encounter Plan of Treatment Not on filedocumented as of this encounter Procedures Procedure Name Priority Date/Time Associated Diagnosis Comme nts FILM LIBRARY Routine 08/10/2012 7:55 AM Results f or this STORAGE ONLY DX EDT procedure ar e in SPINE the results section. documented in this encounter Results Film Library- Storage only DX Spine (08/10/2012 7:55 AM EDT) Anatomical Region Laterality Modality Other Specimen (Source) Anatomical Collection Method Collection Time Re ceived Time Location / / Volume Laterality 08/10/2012 7:55 AM EDT Narrative 06/12/2013 8:09 AM EDT This is a Non-reportable exam Procedure Note 06/12/2013 This is a Non-reportable exam Rosa Viveros APRN IMG FILM LIBRARY ORDERABLES documented in this encounter Visit Diagnoses Not on filedocumented in this encounter Care Teams Rn Clinical Appeals Relationship Specialty Start Date End Date Blank He, ARSEN PCP - General 10/31/12 06/22/13 documented as of this encounter
--- OUTSIDE RECORDS SUMMARY | 2021-08-22 00:17 | XMS_ITS ---
:1965 Author Care Team Providers Name Role Phone DR. ALEX CANSECO Primary Care Provider [phone] DR. ALEX CANSECO Referring Provider [phone] ALEX CANSECO Primary Care Provider [phone] MONY CARRERO Primary Care Provider [phone] MONY CARRERO Referring Provider [phone] Allergies Code Code System Name Reaction Severity [...] Performed by ? 10/08/1999 Colostomy Information not [facility] lab 10/08/1999 Removal of Colon Information not [facility] 08/23/2019 US, Abdomen, [facility] - Radiology [address] [place] [address] (Work Place) 06/27/2020 CT, Abdomen, W/ Contrast Xray [facility] [address] [place], [place] [address] (Work Place) 07/01/2020 CT, Abdomen + Pelvis, W/ Contrast Xray [facility] [address] [place], [place] [address] (Work Place) 12/20/2020 US, Abdomen, Limited Xray [facility] [address] [place] [address] (Work Place) 11/28/2020 US, Duplex, Abdomen Xray [facility] [address] [place], [place] [address] (Work Place) 07/08/2021 US, Abdomen Xray [facility] [address] [place] [address] (Work Place) Results Lab Results Date Name Specimen Result Interpretation Description Value Range Status Address ? 07/01/2020 CBC W/ Auto Diff ? No ? ? ? observation recorded. 08/17/2019 CBC W/ Auto Diff ? No ? ? ? [facility] nt recorded. [facility]: [address] [facility] [place], [place] 08/29/2018 CBC W/ Auto Diff WB Normal Wbc 4.8 4.8- Fin al [facility] 10^3/ 10.8 Hospital mm^3 10^3 Laboratory & /mm^ Pathology: 90 3 [facility] ? ? WB Low Rbc 3.74 3.90 Final [facility] 10^6/ -5.0 Hospital mm^3 3 Laboratory & 10^6 Pathology: 90 /mm^ [address] ? ? WB Low Hgb 10.7 12.0 [facility] g/dL -15. Hospital 5 Laboratory & g/dL Pathology: [facility] ? ? WB Normal Hct 36 % 36-4 [facility] 6 % Hospital Laboratory & Pathology: [address] [place] [address] ? ? WB Normal Mcv 94.9 81.0 [facility] fL -99. Hospital 0 fL Laboratory & Pathology: [address] [place] [address] ? ? WB Low Mch 28.6 33.0 [facility] pg -36. Hospital 0 pg Laboratory & Pathology: [address] [place] [address] ? ? WB Low Mchc 30 33-3 [facility] g/dL 6 Hospital g/dL Laboratory & Pathology: [address] [place] [address] ? ? WB Normal Rdw 14.7 11.6 [facility] % -14. Hospital 8 % Laboratory & Pathology: [address] [place] [address] ? ? WB Normal Platelets 165 150- [facility] 10^3/ 400 Hospital mm^3 10^3 Laboratory & /mm^ Pathology: 90 3 [facility] ? ? WB Normal Ne# 3.07 1.20 [facility] 10^3/ -6.7 Hospital mm^3 0 Laboratory & 10^3 Pathology: 90 /mm^ [address] ? ? WB Low Ly# 1.13 1.20 [facility] 10^3/ -3.4 Hospital mm^3 0 Laboratory & 10^3 Pathology: 90 /mm^ [address] ? ? WB Normal Mo# 0.49 0.11 [facility] 10^3/ -0.7 Hospital mm^3 0 Laboratory & 10^3 Pathology: 90 /mm^ [address] ? ? WB Normal Eo# 0.07 0.00 [facility] 10^3/ -0.7 Hospital mm^3 0 Laboratory & 10^3 Pathology: 90 /mm^ [address] ? ? WB Normal Ba# 0.02 0.00 [facility] 10^3/ -0.2 Hospital mm^3 0 Laboratory & 10^3 Pathology: 90 /mm^ [address] ? ? WB Normal Neut% 64 % 40-7 [facility] per 4 % Hospital 100 per Laboratory & WBC 100 Pathology: 90 WBC [facility] ? ? WB Normal Ly% 24 % 19-4 [facility] per 8 % Hospital 100 per Laboratory & WBC 100 Pathology: 90 WBC [facility] ? ? WB High Mo% 10.3 3.0- [facility] % per 10.0 Hospital 100 % Laboratory & WBC per Pathology: 90 100 [facility] ? ? WB Normal Eo% 1.5 % 1.0- [facility] per 7.0 Hospital 100 % Laboratory & WBC per Pathology: 90 100 [facility] ? ? WB Normal Ba% 0.4 % 0.0- [facility] per 2.0 Hospital 100 % Laboratory & WBC per Pathology: 90 100 [facility] 07/15/2017 Carcinoembryonic ? No ? ? ? [facility] Ag, Quant, Serum observation [place] or Plasma recorded. [facility]: [address] [facility] , [place] Past Encounters 07/08/2021 Cirrhosis of Liver Juani Hi MD: [address] [place] [phone], Ph. 11/28/2020 Cirrhosis of Liver Juani Hi MD: [address] [place] [phone], Ph. 08/13/2020 Cirrhosis of Liver Juani Hi MD: [address] [place] [phone], Ph. 06/27/2020 Hepatomegaly; Gastrointestinal Hemorrhag e Juani Hi MD: [address] [place] [phone], Ph. 05/09/2020 Manfred Dyson, DO: [address] [place] [phone], Ph. Social History Tobacco Smoking Status Never [...]
--- OUTSIDE RECORDS SUMMARY | 2021-08-22 00:17 | XMS_ITS | Encounter Summary ---
:1965 Author Organization [facility] Address [address] [place] [address] Care Team Providers Name Role Phone Iliana Hurt PROFESSOR OF MATHEMATICS Primary Care Provider Encounter Details Date Type Department Care Team Description 08/13/2021 Lab Requisition [facility] Outr Resulting Lab, Pathology & Laboratory Provider [facility] [address] [place] [id number] Social History Tobacco Use Types Packs/Day Years Used Date Never Assessed Sex Assigned at Date Recorded Not on file documented as of this encounter Plan of Treatment Not on filedocumented as of this encounter Procedures Procedure Name Priority Date/Time Associated Comments Diagnosis HIV 1/2 ANTIGEN AND Routine 08/13/2021 8:13 EDT R esults for this ANTIBODY, 4TH procedure are in GENERATION the results section. documented in this encounter Results HIV 1/2 ANTIGEN AND ANTIBODY, 4TH GENERATION (08/13/2021 8:13 EDT) HIV 1 and 2 NegativeComment: If Negative [facility] Antibody/p24 acute HIV-1 LABORATORY Antigen, 4th infection is SERVICES Generation suspected in a high risk patient, submit plasma specimen for HIV-1 RNA quantitation test. Specimen Blood - Venous blood (substance) Narrative [facility] LABORATORY SERVICES - 08/14/2021 9:52 EDT Fourth Generation assay performed on the Siemens Trigenceaur XPT. Performing Organization Address City/State/ZIP Code Phon e Number [facility]OR[facility]ORY [address] [place] [address] SERVICES documented in this encounter Visit Diagnoses Not on filedocumented in this encounter Care Teams Ski Guide Relationship Specialty Start Date End Date Iliana Hurt NP PCP - General 10/03/18 [place] [address] documented as of this encounter
--- OUTSIDE RECORDS SUMMARY | 2021-08-22 00:17 | XMS_ITS | Encounter Summary ---
:1965 Author Organization [facility] Address [address] [facility] [place] [address] Care Team Providers Name Role Phone Deandra Hutchins MD Primary Care Provider Reason for Visit - Closed Specialty Diagnoses / Procedures Referred By Contact Refer red To Contact Procedures Deandra Hutchins MD Film Library- Storage Only CT [address] Abdomen & [place] [address] Referral ID Status Reason Start Date Expiration Date Visits Requ ested Visits Authorized [id number] Closed 07/17/2020 07/17/2021 1 1 Encounter Details Date Type Department Care Team Description 07/04/2020 Ancillary Procedure Radiology Library at Deandra Hutchins MD [place] [address] [address] [address] [phone] (Wo rk) Social History Tobacco Use Types Packs/Day Years Used Date Never Smoker Sex Assigned at Date Recorded Not on file documented as of this encounter Plan of Treatment Not on filedocumented as of this encounter Procedures Procedure Name Priority Date/Time Associated Diagnosis Comme nts FILM LIBRARY Routine 07/04/2020 12:00 AM Results for this STORAGE ONLY CT EDT procedure ar e in ABDOMEN AND PELVIS the resul ts section. documented in this encounter Results Film Library- Storage Only CT Abdomen & Pelvis (07/04/2020 12:00 AM EDT) Specimen (Source) Anatomical Location Collection Method / Collectio n Time Received Time / Laterality Volume Narrative [facility] - 07/17/2020 8:21 PM EDT This exam is auto-finalizing. It's purpo se is for storage only. Deandra Hutchins MD IMG FILM LIBRARY ORDERABLES Performing Organization Address City/State/ZIP Code Phon e Number [place], [place] documented in this encounter Visit Diagnoses Not on filedocumented in this encounter Care Teams Silverware Buffer Relationship Specialty Start Date End Date Deandra Hutchins MD PCP - General 06/23/13 07/17/20 [address] [place] [address] documented as of this encounter
--- OUTSIDE RECORDS SUMMARY | 2021-08-22 00:17 | XMS_ITS | Encounter Summary ---
:1965 Author Care Team Providers Name Role Phone Dr. Iliana Hurt Primary Care Provider [phone] Iliana Hurt Primary Care Provider [phone] Yenifer Salcedo Primary Care Provider [phone] Dr. Iliana Hurt Referring Provider [phone] Yenifer Salcedo Referring Provider [phone] Reason for Visit Dr Hi wants to [...] 10:00AM Lab CBC W/ Auto Diff 07/08/2021 [facility] l Lab ? Hepatic Function Panel, Serum 07/08/2021 [facility] l Lab ? BMP, Serum or Plasma 07/08/2021 [facility] l Lab ? PT/INR 07/08/2021 [...] 07/08/2021 US, Abdomen Xray [facility] [address] [place], [place] [address] (Work Place) Vaccine List [...] consumption? None Have you travelled outside of [place] in the past 14 day s? N Have you experienced any of the following symptoms in the mo st 48 N hours? Fever/Chills, Cough, Shortness [...] 07/08/2021 Cirrhosis of Liver Juani Hi MD: [address] [place] [phone], Ph. History of Present Illness Note: <div>She has noted more lower edema around her feet. She has found that interferes with driving and walking. This has been present for the three to four weeks. She had a kidney stone at the timeand did get IV fluids and had decreased urination with hematuria. She was seen for this in [facility]. No jaundice, ascites, hepatic encephalopathy, or [...]
--- OUTSIDE RECORDS SUMMARY | 2021-08-22 00:17 | XMS_ITS | Encounter Summary ---
:1965 Author Organization [facility] Address [address] [place] [address] Care Team Providers Name Role Phone Iliana Hurt MECHANICAL SPREADER OPERATOR Primary Care Provider Encounter Details Date Type Department Care Team Description 01/09/2021 Lab Requisition [facility] Outr Resulting Lab, Pathology & Laboratory Provider [facility] [address] [place], [place] [address] Social History Tobacco Use Types Packs/Day Years Used Date Never Assessed Sex Assigned at Date Recorded Not on file documented as of this encounter Plan of Treatment Not on filedocumented as of this encounter Procedures Procedure Name Priority Date/Time Associated Diagnosis Comme nts IGA Routine 01/09/2021 8:52 EST Results for this procedure are i n the results section . documented in this encounter Results (ABNORMAL) IGA (01/09/2021 8:52 EST) Pathologist Sig nature IgA 557 (H) 85 - 499 mg/dL [facility] SERVICES Specimen Blood - Venous blood (substance) Performing Organization Address City/State/ZIP Code Phon e Number [facility] [address] [place] [address] SERVICES documented in this encounter Visit Diagnoses Not on filedocumented in this encounter Care Teams Bond Clerk Relationship Specialty Start Date End Date Iliana Hurt NP PCP - General 10/03/18 [facility] [place], [place] [address] documented as of this encounter
--- OUTSIDE RECORDS SUMMARY | 2021-08-22 00:17 | XMS_ITS | Encounter Summary ---
:1965 Author Organization [facility] Address [address] [place] [address] Care Team Providers Name Role Phone VernellquincyIliana pleitez KENNETH Primary Care Provider Encounter Details Date Type Department Care Team Description 07/01/2020 Lab Requisition [facility] Outr Resulting Lab, Pathology & Laboratory Provider [facility] [address] [place], [place] [id number] Social History Tobacco Use Types Packs/Day Years Used Date Never Assessed Sex Assigned at Date Recorded Not on file documented as of this encounter Plan of Treatment Not on filedocumented as of this encounter Procedures Procedure Name Priority Date/Time Associated Diagnosis Comme nts HEPATITIS C AB W Routine 07/01/2020 11:05 Results for this REFLEX TO HCV RNA EDT procedure are in BY PCR the results section. HEPATITIS B SURFACE Routine 07/01/2020 11:05 Resu lts for this ANTIBODY EDT procedure are i n the results section. HEPATITIS B SURFACE Routine 07/01/2020 11:05 Resu lts for this ANTIGEN EDT procedure are i n the results section. documented in this encounter Results HEPATITIS B SURFACE ANTIBODY (07/01/2020 11:05 EDT) Hep B Surface Ab, 5.2 See Note [facility] [[email or web address] MEDICAL Quantitative Comment: mIU/mL [facility] Reference Range for Hep B Surface Ab, Quant: SERVICES Positive: >= 10.0 mIU/mL Negative: ??< 10.0 mIU/mL Patient is presumed to not be immune to infection with Hepatitis B Virus. Hep B Surface Ab, Negative See Note [facility] [[email or web address]] MEDICAL Qualitative Comment: [facility] Reference Range for Hep B Surface Ab, Qual: SERVICES Unvaccinated: ??Negative Vaccinated: ??Positive Specimen Blood - Venous blood (substance) Performing Organization Address City/[facility]/ZIP Code Phon e Number [facility] [address] [place] [address] SERVICES HEPATITIS B SURFACE ANTIGEN (07/01/2020 11:05 EDT) Pathologist Sig nature Hep B Surface Ag Negative Negative [facility] SERVICES Specimen Blood - Venous blood (substance) Performing Organization Address [facility]/ZIP Code Phon e Number [facility] [address] [place] [address] SERVICES HEPATITIS C AB W REFLEX TO HCV RNA BY PCR (07/01/2020 11:05 EDT) Pathologist Sig nature Hep C Antibody Negative Negative [facility] SERVICES Specimen Blood - Venous blood (substance) Performing Organization Address [facility] Phon e Number [facility] [address] [place] [address] SERVICES documented in this encounter Visit Diagnoses Not on filedocumented in this encounter Care Teams Product Manager Financial Services Relationship Specialty Start Date End Date Iliana Hurt NP PCP - General 10/03/[address] [place] [address] [place] [address] documented as of this encounter
--- OUTSIDE RECORDS SUMMARY | 2021-08-22 00:17 | XMS_ITS | Encounter Summary ---
:1965 Author Organization [facility] [address] Care Team Providers Name Role Phone Blank He APRN Primary Care Provider [phone] Reason for Visit Reason Comments Back Pain Left Leg Pain Encounter Details Date Type Department Care Team Description 06/22/2013 Office Visit [facility] Back pa in (Primary Dx) [place] [facility] [address] [place] [facility] [address] [place] [address] [phone] Social History Tobacco Use Types Packs/Day Years Used Date Never Smoker Sex Assigned at Date Recorded Not on file documented as of this encounter Last Filed Vital Signs Vital Sign Reading Time Taken Comments Blood Pressure 140/74 06/22/2013 12:57 PM EDT Pulse - - Temperature - - Respiratory Rate - - Oxygen Saturation - - Inhaled Oxygen Concentration - - Weight 93 kg (205 lb) 06/22/2013 12:57 PM EDT Height 165.1 cm (5' 5) 06/22/2013 12:57 PM EDT Body Mass Index 34.11 06/22/2013 12:57 PM EDT documented in this encounter Progress Notes [facility] APRN - 06/22/2013 1:29 PM EDT Chief complaint: Chief Complaint Patient presents with ??? Back Pain ??? Left Leg Pain History of present illness:This patient is a 47 y.o. female that presents to the spine center for Chronic low back pain with radiation to the left lateral thigh. The symptoms have been present for years but have increased and last year she stopped working because of the symptoms. 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 She describes the pain as anywhere from 6-10 on a scale of 10 a burning sensation without associated numbness, tingling, weakness. It's better she leans over a quarter sits and worse with walking or standing. She doesn't sleep well. She has mild balance difficulties that have been present since she had a colectomy atage 32. She was walking a year ago to try to lose weight but her leg pain became severe. Past medical history: colon cancer, Crohn's disease, colostomy, anxiety Social and family history: some very female who is no longer working she lives with her boyfriend. She doesn't use alcohol or tobacco. Family history is positive for mother dying of [place] in her 40s a grandmother with breast cancer and a son with juvenile diabetes. Problem List: Patient Active Problem List Diagnosis Code ??? Hx of colon cancer, stage III V10.05 ??? H/O colectomy V45.89 ??? Back pain 724.5 Review of Systems: negative for GI or symptoms. She has a colostomy she does have some night sweats. Medications and allergies were reviewed and updated. Physical Examination: this is an overweight female age 47, her shoulders, hips, knees are grossly level to inspection she has mild tenderness in the low back particularly over the SI joint on the left.Her gait isn't nonantalgic but cautious. She can walk briefly on heels and toes. She has mildly limited range of motion in the lumbar spine. She has normal strength, sensation, and reflexes. There is no García or clonus and Babinski are downgoing toes. Diagnostic data: MRI and x-rays of the spine were reviewed with her the x-rays show no malalignment only some mild facet hypertrophy. The MRI shows three-level disc desiccation at L3-4, L4-5, L5-S1. There is a small central disc protrusion but there is absolutely no canal stenosis or neural foraminal narrowing. Assessment: chronic back pain with mild facet hypertrophy and mild disc degeneration Plan: Janice is a pleasant, 47-year-old female who has had back pain and leg symptoms for the last year or so the back pain has been for many years. She has a history of colon cancer was concern that she may have some disease process going on but there is no evidence of this on her MRI. There is no evidence of nerve root impingement at any level and I suspect she may have some facet hypertrophy causing her symptoms. We discussed a medial branch block and radiofrequency and I giving her some materialsto review. If she would like to have this done then she will get back to me and I would scheduled for all questions were answered This note was written with voice recognition software documented in this encounter Plan of Treatment Not on filedocumented as of this encounter Visit Diagnoses Diagnosis Back pain - Primary Backache, unspecified documented in this encounter Care Teams Chief Marketing Officer Relationship Specialty Start Date End Date Blank He APRN PCP - General 10/31/12 06/22/13 documented as of this encounter
--- OUTSIDE RECORDS SUMMARY | 2021-08-22 00:17 | XMS_ITS | Clinical Summary ---
:1965 Author Organization [facility] Address [address] [place] [address] Care Team Providers Name Role Phone Iliana Hurt BOTTLE HOUSE PUMPER Primary Care Provider Encounters Date Type Specialty Care Team Description 08/13/2021 Lab Requisition Clinical Laboratory Outr Resulting Lab , Provider from Last 3 Months Social History Tobacco Use Types Packs/Day Years Used Date Never Assessed Sex Assigned at Date Recorded Not on file Plan of Treatment Health Maintenance Due Date Last Done Comments COVID-19 Vaccine (#1) 1970 Hepatitis C Screen Completed 01/09/2021, 07/01/2020 Procedures Procedure Name Priority Date/Time Associated Comments Diagnosis HIV 1/2 ANTIGEN AND Routine 08/13/2021 8:13 EDT R esults for this ANTIBODY, 4TH procedure are in GENERATION the results section. from Last 3 Months Results HIV 1/2 ANTIGEN AND ANTIBODY, 4TH GENERATION (08/13/2021 8:13 EDT) HIV 1 and 2 NegativeComment: If Negative [facility] Antibody/p24 acute HIV-1 LABORATORY Antigen, 4th infection is SERVICES Generation suspected in a high risk patient, submit plasma specimen for HIV-1 RNA quantitation test. Specimen Blood - Venous blood (substance) Narrative [facility] SERVICES - 08/14/2021 9:52 EDT Fourth Generation assay performed on the Siemens Centaur XPT. Performing Organization Address City/State/ZIP Code Phon e Number [facility] [address] [place] [address] SERVICES from Last 3 Months Care Teams Councilman Relationship Specialty Start Date End Date Iliana Hurt, KENNETH PCP - General 10/03/18 [place] [address] (work)
--- OUTSIDE RECORDS SUMMARY | 2021-08-22 00:17 | XMS_ITS | Encounter Summary ---
:1965 Author Organization [facility] Address [address] [place] [address] Care Team Providers Name Role Phone Deandra Hutchins MD Primary Care Provider Encounter Details Date Type Department Care Team Description 09/28/2018 Hospital Encounter [facility] - S Unknown, Pro Daniel andrade MD 1 [facility] [phone] [place] [address] (Work) [phone] Social History Tobacco Use Types Packs/Day Years Used Date Never Assessed Sex Assigned at Date Recorded Not on file documented as of this encounter Discharge Disposition Disposition Code Departure Means Destination Home or Self Longterm documented in this encounter Plan of Treatment Not on filedocumented as of this encounter Visit Diagnoses Not on filedocumented in this encounter Care Teams Filenet Admin Relationship Specialty Start Date End Date Deandra Hutchins MD PCP - General 12/18/09 10/02/[address] [phone] documented as of this encounter
--- OUTSIDE RECORDS SUMMARY | 2021-08-22 00:17 | XMS_ITS | Encounter Summary ---
:1965 Author Organization [facility] [place] [address] Care Team Providers Name Role Phone Iliana Hurt APRN Primary Care Provider Reason for Referral Diagnostic Test (Routine) - Closed Specialty Diagnoses / Procedures Referred By Contact Refer red To Contact Radiology Diagnoses Hepatic cirrhosis, unspecified hepatic cirrhosis type, unspecified whether ascites present Juani Hi MD [facility] Interventionl Rad Procedures IR TIPS [facility] [place] [address] [place] [address] Fax: Referral ID Status Reason Start Date Expiration Date Visits V isits Requested Authorized [id number] Closed Specialty 07/23/2020 01/22/2022 1 1 Service Requested Encounter Details Date Type Department Care Team Description 07/23/2020 Orders Only [facility]astro[facility]ology at [facility] Juani Hi, Hepatic cirrhosis, [facility] Jourdan jauregui [place] [address] [facility] cirrhosis type, Center unspecified whether [place], [place] ascites present [facility] Social History Tobacco Use Types Packs/Day Years Used Date Never Smoker Sex Assigned at Date Recorded Not on file documented as of this encounter Plan of Treatment Not on filedocumented as of this encounter Results IR TIPS (10/08/2020 11:24 [...] nt was followed by Dr. Hi at [facility]. 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 ??The ashanti chavez underwent work-up at [facility] which revealed a normal echocar diogram and [...] more cranial 4 Fr sheath in the rig t IJV was exchanged for a 10Fr [...] c irrhosis type, unspecified whether ascites present Hepatic cirrhosis, unspecified hepatic c irrhosis type, unspecified whether ascites present documented in this encounter Care Teams Sheep Sticker Relationship Specialty Start Date End Date Iliana Hurt APRN PCP - General Family Medicine 07/18/20 [place] [address] documented as of this encounter
--- OUTSIDE RECORDS SUMMARY | 2021-08-22 00:17 | XMS_ITS | Encounter Summary ---
:1965 Author Organization [facility] [place] [address] Care Team Providers Name Role Phone Blank He OIL FIELD PUMPER Primary Care Provider [phone] Encounter Details Date Type Department Care Team Description 06/18/2013 External Results XRay at [facility] Provider, [address] [place] [address] Social History Tobacco Use Types Packs/Day Years Used Date Never Assessed Sex Assigned at Date Recorded Not on file documented as of this encounter Plan of Treatment Not on filedocumented as of this encounter Procedures Procedure Name Priority Date/Time Associated Diagnosis Comme nts MRI/MRA SCAN Routine 01/27/2013 documented in this encounter Results Scan Doc: MRI/MRA (01/27/2013) Anatomical Region Laterality Modality Other Narrative This result has an attachment that is no t available. Scanning Provider MEDIA MGR SCAN EXT ORDR/RSLT documented in this encounter Visit Diagnoses Not on filedocumented in this encounter Care Teams Maintenance Engineer Oil Field Relationship Specialty Start Date End Date Blank He APRN PCP - General 10/31/12 06/22/13 documented as of this encounter
--- OUTSIDE RECORDS SUMMARY | 2021-08-22 00:17 | XMS_ITS | Encounter Summary ---
:1965 [place] [address] Care Team Providers Name Role Phone Blank He APRN Primary Care Provider [phone] Encounter Details Date Type Department Care Team Description 01/27/2013 Orders Only Functional Orthodoxy Ronen Viveros APRN Program at [facility] [address] [place] [address] [place], [place] [id number] [phone] (Wo rk) Social History Tobacco Use Types Packs/Day Years Used Date Never Assessed Sex Assigned at Date Recorded Not on file documented as of this encounter Plan of Treatment Not on filedocumented as of this encounter Procedures Procedure Name Priority Date/Time Associated Diagnosis Comme nts FILM LIBRARY Routine 01/27/2013 8:05 AM Results f or this STORAGE ONLY MR EST procedure ar e in SPINE the results section. documented in this encounter Results Film Library- Storage only MR Spine (01/27/2013 8:05 AM EST) Anatomical Region Laterality Modality Other Specimen (Source) Anatomical Collection Method Collection Time Re ceived Time Location / / Volume Laterality 01/27/2013 8:05 AM EST Narrative 06/12/2013 8:14 AM EDT This is a Non-reportable exam Procedure Note 06/12/2013 This is a Non-reportable exam Rosa Viveros APRN IMRodrigue FILM LIBRARY ORDERABLES documented in this encounter Visit Diagnoses Not on filedocumented in this encounter Care Teams Brazer Electronic Relationship Specialty Start Date End Date Blank He APRN PCP - General 10/31/12 06/22/13 documented as of this encounter
--- OUTSIDE RECORDS SUMMARY | 2021-08-22 00:18 | XMS_ITS | Encounter Summary ---
:1965 Author Organization [facility] Address [address] [place] [address] Care Team Providers Name Role Phone Unavailable Primary Care Provider Unavailable Encounter Details Date Type Department Care Team Description 05/14/2004 Results Only [facility] - Kendy Cee, KENNETH conversion [address] [facility] [address] [place] [phone] (Wo rk) Social History Tobacco Use Types Packs/Day Years Used Date Never Assessed Sex Assigned at Date Recorded Not on file documented as of this encounter Plan of Treatment Not on filedocumented as of this encounter Procedures Procedure Name Priority Date/Time Associated Diagnosis Comme [facility] CYTOPATHOLOGY Routine 05/14/2004 0:00 EST Results for this procedure are i n the results section . documented in this encounter Results CYTOPATHOLOGY (05/14/2004 0:00 EST) Pathology Report: CYTOPATHOLOGY REPORT [facility] Reports generated via electronic interface contain breezy ginal data; however they are lacking the format of the original re port. Caution should be taken when reading/interpreting unfo rmatted reports. Name: ? FRANK RIVERS ? Accession #: ? [id number] : ? 1965 (Age: 38) ??F ?Collect Date: ? 04/23 Location: ? [facility] ? Receive Date : ? 05/16/2004 Provider: ?KENDY NICHOLS ZMT OPERATOR Copy to: ? Specimen/Source: ?ThinPrep Pap Test, Cervix/ Endocervix Last Menstrual Period: ? 05/05/04 ? SPECIMEN ADEQUACY ? Satisfactory for Evaluation - transformation zone component present GENERAL CATEGORIZATION ? Negative for Intraepithelial Lesion or Malignan cy ? Document reviewed and electronically signed by: ? YULI Bates(ASCP)(IAC) ? Report Date: ??05/19/2004 15:34 End of Report Specimen Performing Organization Address City/State/ZIP Code Phon e Number [facility] [address] [place] [address] SERVICES [facility] [address] [place] [address] documented in this encounter Visit Diagnoses Not on filedocumented in this encounter
--- OUTSIDE RECORDS SUMMARY | 2021-08-22 00:18 | XMS_ITS | Encounter Summary ---
:1965 Author Organization [facility] Address [address] [place] [address] Care Team Providers Name Role Phone Deandra Hutchins MD Primary Care Provider Encounter Details Date Type Department Care Team Description 08/15/2015 Results Only [facility]- Iliana Mcmanus NP [phone] [address] [address] (Wo rk) Social History Tobacco Use Types Packs/Day Years Used Date Never Assessed Sex Assigned at Date Recorded Not on file documented as of this encounter Plan of Treatment Not on filedocumented as of this encounter Procedures Procedure Name Priority Date/Time Associated Diagnosis Comme nts PAP TEST- RESULT Routine 08/15/2015 0:00 EDT Resu lts for this ONLY procedure are i n the results section. documented in this encounter Results PAP TEST- RESULT ONLY (08/15/2015 0:00 EDT) Pathology Report: CYTOPATHOLOGY REPORT [facility] Reports generated via electronic interface contain breezy ginal data; SERVICES however they are lacking the format of the original re port. Caution should be taken when reading/interpreting unfo rmatted reports. Name: ? FRANK RIVERS ? Accession #: ? [id number] ? : ? 1965 (Age: [age]) ??F ?Collect Date: ? 08/15/2015 ? Location: ? [facility] ? Receive Date: ? 08/16/19 16 ? Provider: ILIANA CANSECO CASTING CLEANER Copy to: PELON MAYFIELD MD ? Final Report SPECIMEN ADEQUACY ? Satisfactory for Evaluation - transformation zone component present GENERAL CATEGORIZATION ? Negative for Intraepithelial Lesion or Malignan cy INTERPRETATION ? Reactive cellular cathleen nges associated with inflammation present (includes repair). Last Menstrual Period: 2 years ago Previous Gynecologic Pathology: BALA III: LSIL: Treatment History: Endometrial biopsy: 12/16/09, Specimen/Source: ??Pap Test, Cervix/Endocervix, ThinPr ep Imaging System with manual evaluation Document reviewed and electronically signed by: ? CHALO ALLEN MD ? Report ??Date: 08/30/2015 11:47 HPV with Pap Test ? Date Ordered: ? 08/30/2015 ? Status: ?? S igned Out ?Date Complete: ? 09/03/2015 ? By: ??Sy stem Interface ? Date Reported: ? 09/03/2015 ? Interpretation RESULT: Negative for HPV. No E6 or E7 mRNA is detected from HPV types 16,18,31,3 3,35, 39,45,51,52,56,58,59,66, and 68 by quill fixer media robinson amplification. Comments Document reviewed and electronically signed by: ? System Interface ? Report date: 09/03/2015 By the signature above, the attending physician certif ies that he/she has personally conducted a gross and/or microscopic examin ation of the described specimens and rendered or confirmed the above diagnosi s. End of Report Specimen Performing Organization Address [facility]/State/ZIP Code Phon e Number [facility] [address] [place] [address] SERVICES documented in this encounter Visit Diagnoses Not on filedocumented in this encounter Care Teams Welding Operator Relationship Specialty Start Date End Date Deandra Hutchins MD PCP - General 12/18/09 10/02/[address] [phone] documented as of this encounter
--- OUTSIDE RECORDS SUMMARY | 2021-08-22 00:18 | XMS_ITS | Encounter Summary ---
:1965 Author Organization [facility] Address [address] [place] [address] Care Team Providers Name Role Phone Deandra Hutchins MD Primary Care Provider Encounter Details Date Type Department Care Team Description 07/05/2006 Results Only [facility] - Kendy Cee, TEST ADMINISTRATOR conversion [address] [facility] [address] [place] [phone] (Wo rk) Social History Tobacco Use Types Packs/Day Years Used Date Never Assessed Sex Assigned at Date Recorded Not on file documented as of this encounter Plan of Treatment Not on filedocumented as of this encounter Procedures Procedure Name Priority Date/Time Associated Diagnosis Comme nts CYTOPATHOLOGY Routine 07/05/2006 0:00 EDT Results for this procedure are i n the results section . documented in this encounter Results CYTOPATHOLOGY (07/05/2006 0:00 EDT) Pathology Report: CYTOPATHOLOGY REPORT [facility] Reports generated via electronic interface contain breezy ginal data; however they are lacking the format of the original re port. Caution should be taken when reading/interpreting unfo rmatted reports. Name: ? FRANK ZIMMERMAN ? Accession #: ? [id number] : ? 1965 (Age: 40) ??F ?Collect Date: ? 06/22 Location: ? [facility] ? Receive Date : ? 07/06/2006 Provider: ?KENDY NICHOLS TEST ADMINISTRATOR Copy to: ? Specimen/Source: ? ThinPrep Pap Test, Cervix/Endocervix, processed on Zeomatrix ThinPrep Imaging System, with manual evaluation Last Menstrual Period: ? 06/14/06 Previous Gynecologic Pathology: ? BALA III: Carcinoma: Colon 1999 Treatment History: ? LEEP: Endometrial biopsy: 09/01/01 Other: ? HPVA - HPV testing requested if ASC-US on the current ThinPrep Pap test. ? SPECIMEN ADEQUACY ? Satisfactory for Evaluation - transformation zone component present GENERAL CATEGORIZATION ? Negative for Intraepithelial Lesion or Malignan cy ? Document reviewed and electronically signed by: ? CHINEDU Pulliam(ASCP) ? Report Date: ??07/07/2006 16:17 End of Report Specimen Performing Organization Address City/State/ZIP Code Phon e Number [facility] [address] [place] [address] SERVICES [facility] [address] [place] [address] documented in this encounter Visit Diagnoses Not on filedocumented in this encounter Care Teams Monument Stonecutter Relationship Specialty Start Date End Date Deandra Hutchins MD PCP - General 12/18/09 10/02/[address] [phone] documented as of this encounter
--- OUTSIDE RECORDS SUMMARY | 2021-08-22 00:18 | XMS_ITS | Encounter Summary ---
:1965 Author Organization [facility] Address [address] [place] [address] Care Team Providers Name Role Phone Unavailable Primary Care Provider Unavailable Encounter Details Date Type Department Care Team Description 08/04/1999 Results Only [facility] - Natalie Raphael, Chr istopher, conversion DO [address] [facility] [address] [facility] JUANA QUINTEROS [address] [place] [address] [place] [address] (Wo rk) Social History Tobacco Use Types Packs/Day Years Used Date Never Assessed Sex Assigned at Date Recorded Not on file documented as of this encounter Plan of Treatment Not on filedocumented as of this encounter Procedures Procedure Name Priority Date/Time Associated Diagnosis Comme [facility] SURGICAL PATHOLOGY Routine 08/04/1999 0:00 EDT Re sults for this procedure are i n the results section. documented in this encounter Results SURGICAL PATHOLOGY (08/04/1999 0:00 EDT) Pathology Report: SURGICAL PATHOLOGY REPORT [facility] Reports generated via electronic interface contain breezy ginal data; LAB however they are lacking the format of the original re port. Caution should be taken when reading/interpreting unfo rmatted reports. Name: ? FRANK ZIMMERMAN ? Accession #: ? [id number] ? : ? 1965 (Age: 33) ??F ? Collect Date: ? 08/04/1999 ? Location: ? [facility] ? Receive Date: ? 000 ? Provider: ROGER RAPHAEL DO Copy to: QUYEN LAW MD ? Final Pathologic Diagnosis: A. ?Colon, mass at 60 cm, biopsies: 1. 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 See comment. 2. ?Chronic colitis, mildly active with g ranulomas. B. ?Colon, sigmoid, biopsies: 1. ?Chronic col itis, mildly active with granulomas. ??See comment. C. ?Rectum, biopsies: 1. ?Chronic col itis, mildly active with granulomas. ??See comment. Comment: ? The biopsies from all three sites show chronic architectural changes as well as acute inflammation with crypt abscesses and cr yptitis as well as frequent granulomas. ??Some of the granulomas are crypt associated while others are not. ??These findings ar e suggestive of Crohn' s disease as an etiology for the chronic colitis. The biopsies from the mass at 6 0 cm show changes reminiscent of a tubulovillo us adenoma with high grade dysplasia. However in the light of the chronic colitis, this likely repres ents dysplasia arising in the setting of IBD. No definitive invasive tumor is identi fied. Dr. Fadia Hackett has reviewed this case and concurs with the diagnosis. ??( Dr. Riley)/[facility] Document reviewed and electronically signed by: Agueda Riley MD Report ??Date: 08/06/1999 17:24 By the signature above, the attending physician certif ies that he/she has personally conducted a gross and/or microscopic examin ation of the described specimens and rendered or confirmed the above diagnosi s. Specimen(s) Received: A. ?Mass 60 cm biopsy B. ?Sigmoid biopsy C. ?Rectal biopsy Clinical History: ? Chronic diarrhea and hematochezia, ? inflammato ry bowel disease Gross Description: ? Received in Hollande' s fixative labelled McNaulty and #1 mass at 60 cm are six henson-parkinson friable soft tissue fra gments ranging from 0.2 x 0.2 x 0.2 cm to 0.4 x 0.3 x 0.2 cm. ??The specimen is entirel y submitted as (A1) and (A2). Received in Hollande' s fixa tive labelled McNaulty and #2 sigmoid colon are four henson-parkinson irregular soft tissues ranging fro m 0.2 x 0.2 x 0.2 cm to 0.4 x 0.2 x 0.2 cm. ??The specimen is entirely submitted as (B1) and (B2). ?? Received in Hollande' s fixative labelled McNaulty a nd #3 rectum are two henson-parkinson irregular soft tiss ues measuring 0.2 x 0.2 x 0.2 cm to 0.4 x 0.2 x 0.2 cm. ??The specimen is entirely submitted as (C). ??(Chetan Coyle)/[facility] End of Report Specimen Performing Organization Address City/State/ZIP Code Phon e Number [facility] [address] [place] [phone] SERVICES [facility] [address] [place] [address] documented in this encounter Visit Diagnoses Not on filedocumented in this encounter
--- OUTSIDE RECORDS SUMMARY | 2021-08-22 00:18 | XMS_ITS | Encounter Summary ---
:1965 Author Organization [facility] Address [address] [place] [address] Care Team Providers Name Role Phone Unavailable Primary Care Provider Unavailable Encounter Details Date Type Department Care Team Description 12/16/2009 Results Only [facility] Katie Hampton MD Laboratory Services - [address] [place] [address] REY,S [facility] [address] [place] [phone] (Wo rk) Social History Tobacco Use Types Packs/Day Years Used Date Never Assessed Sex Assigned at Date Recorded Not on file documented as of this encounter Plan of Treatment Not on filedocumented as of this encounter Procedures Procedure Name Priority Date/Time Associated Diagnosis Comme [facility] SURGICAL PATHOLOGY Routine 12/16/2009 0:00 EDT Re sults for this procedure are i n the results section. documented in this encounter Results SURGICAL PATHOLOGY (12/16/2009 0:00 EDT) Pathology Report: SURGICAL PATHOLOGY REPORT ? [facility] Reports generated via electr CardLab interface contain original data; ? LAB however they are lacking the format of the original report. ? Caution should be taken when reading/interpreting unformatted reports. ? Name: ? MCNAMIKEY, FRANK ? Accession #: ? [id number] ? : ? 1965 (Age: 44) ??F ? Collec t Date: ? 12/16/2009 ? Location: ? [facility] ? R eceive Date: ? 12/16/2009 ? Provider: GAILYN B QUYEN MD ? Copy to: LEIA LAW MD ? Final Pathologic Diagnosis: ? Endometrium, biopsy: ? 1. ?Superficial fragments of weakly proliferative endometrium and lower uterine segment tissue. ??Se e comment. ? 2. ? No hyperplasia iden tified. ? Comment: ? Life Enrichment Assistant sectio ns have been reviewed at intradepartmental ? consultation conference. ??( Dr. Dyson)/kmm ? Document reviewed and electr onically signed by: ? IVORY J BUTNOR MD ? Report ??Date: 12/19/2009 10 :23 ? By the signature above, the attending physician certifies that he/she has ? personally conducted a gross and/or microscopic examination of the described ? specimens and rendered or co nfirmed the above diagnosis. ? Specimen(s) Received: ? Endometrial biopsy ? Clinical History: ? Menometrorrhagia; hx of colon Ca; FH of endometrial Ca ? Gross Description: ? Received in formalin labelled McNaulty, Frank and endometrium are 0.4 x 0.3 x 0.2 cm of henson-parkinson muc oid tissue fragments. ??The specimen is entirely ? submitted in one cassette fo llowing filtration. ??(Chetan Coyle)/mms ? End of Report ? Specimen Performing Organization Address City/State/ZIP Code Phon e Number [facility] [address] [place] [address] SERVICES [facility] [address] [place] [address] documented in this encounter Visit Diagnoses Not on filedocumented in this encounter
--- OUTSIDE RECORDS SUMMARY | 2021-08-22 00:18 | XMS_ITS | Encounter Summary ---
:1965 Author Organization [facility] Address [address] [place] [address] Care Team Providers Name Role Phone Deandra Hutchins MD Primary Care Provider Encounter Details Date Type Department Care Team Description 09/15/2011 Results Only [facility] Robb Nichols NP Laboratory Services - [address] [place] [address] [address] [facility] [phone] [place], [place] [id number] [phone] Social History Tobacco Use Types Packs/Day Years Used Date Never Assessed Sex Assigned at Date Recorded Not on file documented as of this encounter Plan of Treatment Not on filedocumented as of this encounter Procedures Procedure Name Priority Date/Time Associated Diagnosis Comme nts PAP TEST- RESULT Routine 09/15/2011 0:00 EDT Resu lts for this ONLY procedure are i n the results section. documented in this encounter Results PAP TEST- RESULT ONLY (09/15/2011 0:00 EDT) Pathology Report: CYTOPATHOLOGY REPORT [facility] Reports generated via electronic interface contain breezy ginal data; however they are lacking the format of the original re port. Caution should be taken when reading/interpreting unfo rmatted reports. Name: ? FRANK RIVERS ? Accession #: ? [id number] : ? 1965 (Age: 45) ??F ?Collect Date: ? 08/23 Location: ? [facility] ? Receive Date : ? 09/16/2011 Provider: ?KENDY NICHOLS CARGO INSPECTOR Copy to: ? Specimen/Source: ? Pap Test, Cervix/Endocervix, ThinPrep Imaging System with manual evaluation Last Menstrual Period: ? 03/05 Previous Gynecologic Pathology: ? BALA III: LSIL: Treatment History: ? Endometrial biopsy: 12/16/09, 09/01/01 ? SPECIMEN ADEQUACY ? Satisfactory for Evaluation - transformation zone component present GENERAL CATEGORIZATION ? Negative for Intraepithelial Lesion or Malignan cy INTERPRETATION ? Reactive cellular cathleen nges associated with inflammation present (includes repair). Shift in mike present suggestive of bacterial vaginos is. ? Document reviewed and electronically signed by: ? UMBERTO BREWSTER MD ? Report Date: ??09/24/2011 10:48 End of Report Specimen Performing Organization Address City/State/ZIP Code Phon e Number [facility] [address] [place] [address] SERVICES [facility] [address] [place] [address] documented in this encounter Visit Diagnoses Not on filedocumented in this encounter Care Teams Cardiac Cath Lab Technologist Relationship Specialty Start Date End Date Deandra Hutchins MD PCP - General 12/18/09 10/02/[address] [phone] documented as of this encounter
--- OUTSIDE RECORDS SUMMARY | 2021-08-22 00:18 | XMS_ITS | Encounter Summary ---
:1965 Author Organization [facility] Address [address] [place] [address] Care Team Providers Name Role Phone Unavailable Primary Care Provider Unavailable Encounter Details Date Type Department Care Team Description 06/06/1999 Results Only [facility] Marquise Mix MD conversion [address] [place] [address] Social History Tobacco Use Types Packs/Day Years Used Date Never Assessed Sex Assigned at Date Recorded Not on file documented as of this encounter Plan of Treatment Not on filedocumented as of this encounter Procedures Procedure Name Priority Date/Time Associated Diagnosis Comme nts CYTOPATHOLOGY Routine 06/06/1999 15:12 EDT Result s for this procedure are i n the results section . documented in this encounter Results CYTOPATHOLOGY (06/06/1999 15:12 EDT) Pathology Report: CYTOPATHOLOGY REPORT [facility] Reports generated via electronic interface contain breezy ginal data; however they are lacking the format of the original re port. Caution should be taken when reading/interpreting unfo rmatted reports. Name: ? FRANK RIVERS ? Accession #: ? [id number] : ? 1965 (Age: 33) ??F ?Collect Date: ? 05/23 Location: ?Receive Date: ? 06/06/1999 Provider: ?MARQUISE COVARRUBIAS MD Copy to: ?MARQUISE COVARRUBIAS MD ? Specimen/Source: ?Chief Nurse Executive ThinPrep Last Menstrual Period: ? GYNECOLOGIC ??CYTOPATHOLOG Y ??REPORT Name: FRANK RIVERS ? [facility] : 1965 ?? 33Y F ?Client ID: [id number] SS#: [id number] ? Ac cession #: [email or web address] Clinician: MARQUISE COVARRUBIAS MD ?? Location: [facility] ??Copy to: ?? Specimen: ?Chief Nurse Executive ThinPrep ? Source: Cervix/Endocervix ?Collected: 06/04/99 ? Received: 06/06/1999 ?LMP: 06/04/99 ? Hormone Therapy: No ? : No ? Radiation Therapy: No ?? Post : No ?Chemotherapy: No ?IUD: No ? Prev Abnormal Pap: Yes ?? Clinical Hx: ASCUS, CHRISTIANO, Cx BALA III, CUS, Cx ? bx BALA III. ?(Blank sams indicate information not provided on requisition) SPECIMEN ADEQUACY: ? Satisfactory For Evaluation ?? GENERAL CATEGORIZATION: ? WITHIN NORMAL LIMITS ? Reviewed And Electronically Signed By: ? Maggi chawla, CT(ASCP) ? Ana quigley, SCT(ASCP) ? Report Date : ?? 06/12/1999 Energy [employer] Archived Tests - Final Diagnosis Text Field: Clinical History : ; ASC US, CHRISTIANO, Cx BALA III, ASCUS, Cx bx BALA III. ? Document reviewed and electronically signed by: ? Conversion ? Report Date: ??06/12/1999 00:00 End of Report Specimen Performing Organization Address City/State/ZIP Code Phon e Number [facility] [address] [place] [address] SERVICES [facility] [address] [place] [address] documented in this encounter Visit Diagnoses Not on filedocumented in this encounter
--- OUTSIDE RECORDS SUMMARY | 2021-08-22 00:18 | XMS_ITS | Encounter Summary ---
:1965 Author Organization [facility] Address [address] [place] [address] Care Team Providers Name Role Phone Unavailable Primary Care Provider Unavailable Encounter Details Date Type Department Care Team Description 10/10/1999 Results Only [facility] - Natalie Raphael, Chr istopher, conversion DO [address] [facility] [address] [facility] [address] [place] [address] [place] [address] (Wo rk) Social History Tobacco Use Types Packs/Day Years Used Date Never Assessed Sex Assigned at Date Recorded Not on file documented as of this encounter Plan of Treatment Not on filedocumented as of this encounter Procedures Procedure Name Priority Date/Time Associated Diagnosis Comme [facility] SURGICAL PATHOLOGY Routine 10/10/1999 0:00 EDT Re sults for this procedure are i n the results section. documented in this encounter Results SURGICAL PATHOLOGY (10/10/1999 0:00 EDT) Pathology Report: SURGICAL PATHOLOGY REPORT ALF L[facility] Reports generated via electronic interface contain breezy ginal data; LAB however they are lacking the format of the original re port. Caution should be taken when reading/interpreting unfo rmatted reports. Name: ? FRANK ZIMMERMAN ? Accession #: ? [id number] ? : ? 1965 (Age: 33) ??F ? Collect Date: ? 10/10/1999 ? Location: ? [facility] ? Receive Date: ? 000 ? Provider: ROGER RAPHAEL DO Copy to: LEIA SALES MD ? Final Pathologic Diagnosis: ? Terminal ileum, colon, rectum, and anus, colect geovanna: 1. ?Mucinous ad enocarcinoma, invasive, arising within a tubulovillous adenoma. ??See comment. ? - Tumor invades throu gh muscularis propria and into pericolonic fat (AJCC: T3). - Fifty-eight benign regiona l lymph nodes negative for tumor (0/58) (AJCC: N0). - Proximal and distal surgical resection margins negat guillermo for tumor. 2. 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 See comment. Comment: ? The tumor is arising in the background of a tub ulovillous adenoma and consists of well differentiated neoplast ic glands associated with formation of large lakes of mucin extendi ng through the serosa and into the pericolonic fat. These mucinous foci constitu te greater than half of the tumor mass. ??Coexistence of adenocarcinoma and coliti s cystica profunda is in consideration, however, the confirmation of this possibi lity is difficult. The tumor mass measures 6.5 cm in greatest dimension. ??Althou gh the tumor is found arising within a tubulovillous adenoma, it has a diffuse flat component which c overs an area measuring 6.5 x 3.0 cm on the mucosal surfac e. ??In addition, a majority of the intestinal mucosa exhibits chronic inflammatio n with skip areas of focal acute cryptitis. ??There is significant glandular dis array with a thickening of the muscularis mucosa and muscularis propria with skip areas of transmural inflammation and granulomatous inflammation, consistent with a diagnosi s of Crohn' s disease. ??This case has been reviewed at the intrade partmental consultation conference. ??(Dr. Salmon)/ljn Document reviewed and electronically signed by: Eri Painting MD Report ??Date: 10/15/1999 14:33 By the signature above, the attending physician certif ies that he/she has personally conducted a gross and/or microscopic examin ation of the described specimens and rendered or confirmed the above diagnosi s. Specimen(s) Received: ? Colon - rectum Clinical History: ? Crohn' s; dysplastic lesion in descending colon ? Gross Description: ? Received in formalin labelled McNaulty and # 1 colon/rectum is the product of a colectomy received closed w ith a 9.0 cm portion of attached small bowel. ??The specimen measur es 60.0 cm in total length. ??Proximally, there is a structure that appears to be the ileocecal valve locat ed 9.0 cm from the proximal surgical resection margin. ??Distal to the presumed ileocecal valve, the bowel lumen has skip areas of stenosis and varie s in inner circumference from 9.0 cm to 2.0 cm. ??Approxim ately 15.0 cm from the presumed ileocecal valve there is a portion of membranous fibrofatty tissue attached to the bowel wall that grossly appears to be omentu m. ??There is a significant amount of pericolonic fat with evidence of fat wrappin g along the entire length of the specimen. ??There is a 5.0 cm surgical defect tow ards the proximal end of the specimen, 11.0 cm from the presumed ileocecal valve , with overlying henson-bynum cyst-like structure filled with mucoid-material. ??Ther e is no evidence of overlying exudate. ??The serosa of the proximal and mid portion of the spec imen is henson-pink and generally smooth. There is no identifiable serosa overlying the di stal 15.0 cm of the specimen. At the distal end of the specimen, there is a segment of anal mucosa measuring 3.5 cm in length and 2.5 cm in inner circumference. ??The mucosa of the portion of small bowel is hemorrhagic, edematous and has a cob blestone appearance. There is a 1.0 cm full thickness defect approximately 1.0 cm distal to the ileocecal valve without overlying serosal exudat e. ??Adjacent to this defect, there is a granular polypoid lesion measuring 1.0 x 0.8 x 0.3 cm. ??Subjacent to this lesion the mucosa is henson-brown and granular over an area measuring 7.0 x 3.0 cm. ??The proximal 10.0 cm of large bowel has a dilated lumen with hyperemic and focally hemorrhagic mucosa and flattened mucosal f olds. ??Distal to this segment (7.0 cm portion of bowel with attached o mental appearing tissue), the lumen becomes quite stenotic and the mucosa is edemato us, cobblestoned, and quite granular. ??There are several 0.8 cm to 1.0 cm full thickness defects in the bowel wall without any o verlying serosal exudate. ??The bowel lumen remains stenotic with a thickened muscularis propria to within 15.0 cm of the distal surgical resection margin. ??The distal end of the vineet gical resection margin measures 6.0 cm in inner circumference, and the mucosa is less hyperemic, henson-white, with smooth mucosal folds. ??There is a valentin miform appendix at the proximal end of the specimen measuring 5 .0 cm in length and 0.4 cm in diameter and is generally unremarkable. BLOCK MIRANDA A1 ?Proximal resection margin adjacent to staple line A2 ?Perpendicular section of distal surgi bethany resection margin A3 ?Full thickness warehouse representative section of small bowel mucosa A4 ?Fruit Raiser section of ileocecal v alve A5 ?Fruit Raiser section of cecum A6 ?Representat guillermo section of dilated proximal portion of large bowel A7 ?Fruit Raiser section of mucos a adjacent to surgical defect A8 ?Representat guillermo section of smaller full thickness defect from mid portion of large bowel A9 ?Two represe ntative sections of large bowel mucosa, 15.0 cm from ileocecal valve. A10 ?Representa tive section of large bowel, 20.0 cm from ileocecal valve A11 ?Representa tive section of large bowel, 25.0 cm from ileocecal valve A12 ?Representa tive section of large bowel, 30.0 cm from ileocecal valve A13 ?Representa tive section of large bowel, 35.0 cm from ileocecal valve A14 ?Representa tive section of large bowel, 40.0 cm from ileocecal valve A15 ?Representa tive section of focally hemorrhagic area 5.0 cm from ileocecal valve A16 ?Section of granular polypoid lesion in the mid portion of the specimen A17 ?Section ad jacent to surgical defect with overlying mucoid cyst-like structure A18 ?One-half o f distal tip of appendix and one warehouse representative cross section A19-A21 ? Three lymph nodes, bisected A22 ?Section of granular hemorrhagic mucosa 9.0 cm from ileocecal valve A23 ?Section of granular mucosa 12.0 cm f rom ileocecal valve A24 ?Section of granular mucosa and adjacent normal appearing mucosa 14.0 from ileocecal valve ? A25 ? Granular po lypoid lesion underlying serosal cyst-like structure, 11.0 cm from ileocecal valve (representing deepe st depth of invasion grossly) A26 ? Four intact lymph nodes in region of tumor A27 ? Four intact lymph nodes in the region of the tumor A28 ? Four intact lymph nodes in the region of the tumor A29 ? Four intact lymph nodes in the region of the tumor A30 ? Four intact lymph nodes in the region of the tumor A31 ? One lymph node in the region of the tumor, b isected A32 ? One lymph node in the region of the tumor, b isected A33 ? Four intact lymph nodes in the region of the tumor A34 ? Four intact lymph nodes in the region of the tumor A35 ? Four intact lymph nodes in the region of the tumor A36 ? Four intact lymph nodes A37 ? Four intact lymph nodes A38 ? Four intact lymph nodes A39 ? Four intact lymph nodes A40 ? One lymph node, bisected A41 ? Two intact lymph nodes ? (Dr. Salmon)/eliane End of Report Specimen Performing Organization Address City/State/[facility] Phon e Number [facility] [address] [place] [address] SERVICES ALF [facility] [address] [place] [address] documented in this encounter Visit Diagnoses Not on filedocumented in this encounter
--- OUTSIDE RECORDS SUMMARY | 2021-08-22 00:18 | XMS_ITS | Encounter Summary ---
:1965 Author Organization [facility] Address [address] [place] [address] Care Team Providers Name Role Phone Unavailable Primary Care Provider Unavailable Encounter Details Date Type Department Care Team Description 09/30/2001 Results Only [facility] - Deandra Min MD conversion [address] [facility] [address] [place] [phone] (Wo rk) Social History Tobacco Use Types Packs/Day Years Used Date Never Assessed Sex Assigned at Date Recorded Not on file documented as of this encounter Plan of Treatment Not on filedocumented as of this encounter Procedures Procedure Name Priority Date/Time Associated Diagnosis Comme [facility] SURGICAL PATHOLOGY Routine 09/30/2001 0:00 EDT Re sults for this procedure are i n the results section. documented in this encounter Results SURGICAL PATHOLOGY (09/30/2001 0:00 EDT) Pathology Report: SURGICAL PATHOLOGY REPORT ALF [facility] Reports generated via electronic interface contain breezy ginal data; LAB however they are lacking the format of the original re port. Caution should be taken when reading/interpreting unfo rmatted reports. Name: ? FRANK RIVERS ? Accession #: ? [id number] ? : ? 1965 (Age: 35) ??F ? Collect Date: ? 09/30/2001 ? Location: ? [facility] ? Receive Date: ? 002 ? Provider: DEANDRA LAW MD Copy to: QUYEN SALES MD ? Final Pathologic Diagnosis: ? Uterine contents, evacuation: 1. ?Immature hydropic chorionic villi. ?? See comment. 2. ?Hypersecretory endometrium. 3. ?Decidualized stroma. Comment: ? Given that some of the villi present are hydropic with scalloping, the differential of a partial mole was raised. ??However, these changes could be consistent with a blighted o vum. ??Flow cytometry will be performed on a paraffin block with the results issued in a separate report. ?? (Dr. Guzman)/eliane Document reviewed and electronically signed by: Agueda Riley MD Report ??Date: 10/08/2001 08:22 By the signature above, the attending physician certif ies that he/she has personally conducted a gross and/or microscopic examin ation of the described specimens and rendered or confirmed the above diagnosi s. Specimen(s) Received: ? Uterine contents Clinical History: ? Blighted ovum; LMP 08/01/01 Gross Description: ? Received in formalin labelled McNaulty and u terine contents are multiple red-brown spongy me mbranous diffusely hemorrhagic soft tissue fragments measuring 6.0 x 4.0 x 1.0 cm in aggregate. ??No parts are grossly identified. ??Approximately 50% of the specimen is submitted as (A1) to (A3). One additional section of tissue is submitted as (A4). ??(Chetan Mcdonough/dusty DNA FLOW CYTOMETRY RESULTS ? Date Ordered: ? 10/26/2001 ? Status: ?? Signed Out ?Date Complete: ? 10/26/2001 ? By: ??C carine Lara ? Date Reported: ? 10/27/2001 ? Interpretation ? Products of conception with entirely DNA diploi d cell population, see comments. ??See supplementary report. Comment ? The absence of aneuploidy (specifically triploi dy) would support a diagnosis of hydropic abortus given the differential d iagnosis. ??An early complete mole cannot be excl uded solely on the basis of the flow cytometric DNA analysis. Description ? Paraffin embedded tissue block A4; hydropic abo rtus r/o partial hydatidiform mole. Document reviewed and electronically signed by: ? Abdelrahman Mejía MD ? Report date: 10/27/2001 By the signature above, the attending physician certif ies that he/she has personally conducted a gross and/or microscopic examin ation of the described specimens and rendered or confirmed the above diagnosi s. End of Report Specimen Performing Organization Address City/State/ZIP Code Phon e Number [facility] [address] [place] [address] SERVICES ALF [facility] [address] [place] [address] documented in this encounter Visit Diagnoses Not on filedocumented in this encounter
--- OUTSIDE RECORDS SUMMARY | 2021-08-22 00:18 | XMS_ITS | Encounter Summary ---
:1965 Author Organization [facility] Address [address] [place] [address] Care Team Providers Name Role Phone Deandra Hutchins MD Primary Care Provider Encounter Details Date Type Department Care Team Description 09/28/2018 Results Only [facility]- Janae Alcantara MD [phone] [address] [place] [address] (Wo rk) Social History Tobacco Use Types Packs/Day Years Used Date Never Assessed Sex Assigned at Date Recorded Not on file documented as of this encounter Plan of Treatment Not on filedocumented as of this encounter Procedures Procedure Name Priority Date/Time Associated Diagnosis Comme nts SURGICAL PATHOLOGY Routine 09/28/2018 15:38 Resul ts for this EDT procedure are i n the results section. documented in this encounter Results SURGICAL PATHOLOGY (09/28/2018 15:38 EDT) Pathology SURGICAL PATHOLOGY REPORT [facility] Report: Reports generated via electronic interface conta in original data; CENTER however they are lacking the format of the original re port. LABORATORY Caution should be taken when reading/interpretin g unformatted reports. SERVICES Name: ? FRANK RIVERS ? Accession #: ? [id number] ? : ? 1965 (Age: [age]) ??F ? Collect Date: ? 09/28/2018 ? Location: ? [facility] ? Receive Date: ? 9 ? Provider: JANAE PARKER MD Copy to: ? Final Pathologic Diagnosis: SKIN OF WRIST/FOREARM, RIGHT, EXCISIONAL BIOPSY: - Seborrheic keratosis with superimposed changes of pr urigo nodularis. Microscopic Description: The stratum corneum is thickened by orthohyperkeratosi s with foci of parakeratosis and scale shira t. ??The epidermis shows marked irregular hyperplasia with elongate and thickened rete ridges. ??The keratinocytes show mild reactive changes with an accentuated granular layer. ??The dermal papillae are widened by thick bundles of collagen oriented in a vertical array. There is mild chronic inflammation. ??(Dr. Mack)/[facility] Document reviewed and electronically signed by: RAY MACK MD Report ??Date: 09/30/2018 16:21 By the signature above, the attending physician certif ies that he/she has personally conducted a gross and/or microscopic examin ation of the described specimens and rendered or confirmed the above diagnosi s. Specimen(s) Received: Excisional biopsy R wrist/forearm Clinical History: Nodule on arm, part papule c/w wart but growing latera lly sclerotic Gross Description: ? Received in formalin labelled with proper patient identification (initials M, D) and Rt arm is an unoriented lorne ptical excision of henson skin (1.4 x 1.0 cm, and is excised to a depth of 0.4 cm). There is a c entral white keratotic raised focus (1.0 x 0.7 x 0.1 cm) locate d on the skin surface. The margins are inked blue. The specimen is serially sectioned and entirely submitted as 1 tips, reverse en face and 2 and [address] central sections. RANULFO Cr (ASCP) 09/29/2018 5:23 PM End of Report Specimen Performing Organization Address City/State/ZIP Code Phon e Number [facility] [address] [place] [address] SERVICES documented in this encounter Visit Diagnoses Not on filedocumented in this encounter Care Teams Collection Analyst Relationship Specialty Start Date End Date Deandra Hutchins MD PCP - General 12/18/09 10/02/[address] [place] [phone] documented as of this encounter
--- OUTSIDE RECORDS SUMMARY | 2021-08-22 00:18 | XMS_ITS | Encounter Summary ---
:1965 Author Organization [facility] Address [address] [place] [address] Care Team Providers Name Role Phone Unavailable Primary Care Provider Unavailable Encounter Details Date Type Department Care Team Description 08/29/2001 Results Only [facility] - Deandra Min MD conversion [address] [facility] [address] [place] [phone] (Wo rk) Social History Tobacco Use Types Packs/Day Years Used Date Never Assessed Sex Assigned at Date Recorded Not on file documented as of this encounter Plan of Treatment Not on filedocumented as of this encounter Procedures Procedure Name Priority Date/Time Associated Diagnosis Comme nts CYTOPATHOLOGY Routine 08/29/2001 0:00 EDT Results for this procedure are i n the results section. SURGICAL PATHOLOGY Routine 08/29/2001 0:00 EDT Re sults for this procedure are i n the results section. documented in this encounter Results SURGICAL PATHOLOGY (08/29/2001 0:00 EDT) Pathology Report: SURGICAL PATHOLOGY REPORT ALF [facility] Reports generated via electronic interface contain breezy ginal data; LAB however they are lacking the format of the original re port. Caution should be taken when reading/interpreting unfo rmatted reports. Name: ? FRANK RIVERS ? Accession #: ? [id number] ? : ? 1965 (Age: 35) ??F ? Collect Date: ? 08/29/2001 ? Location: ? [facility] ? Receive Date: ? 002 ? Provider: DEANDRA LAW MD Copy to: QUYEN SALES MD ? Final Pathologic Diagnosis: ? Endometrium, biopsy: ? - ??Immature chorioni c villi, decidua and gestational endometrium consistent with products of conception. See comment. ?? Comment: ? Dr. Deandra Law' ??off ice has been contacted with the results of this biopsy on 09/01/01. ??(Dr. Salmon)/dtl Document reviewed and electronically signed by: Neville Cortez [facility] Report ??Date: 09/01/2001 16:16 By the signature above, the attending physician certif ies that he/she has personally conducted a gross and/or microscopic examin ation of the described specimens and rendered or confirmed the above diagnosi s. Specimen(s) Received: ? Endometrial bx Clinical History: ? Irregular menses/DUB Gross Description: ? Received in formalin labelled McNaulty and e ndometrial biopsy are multiple cylindrical soft tissue fragmen ts which range in measurement from 0.1 to 3.0 cm in length and 0.1 cm in diameter. ??Th e soft tissue is hemorrhagic, henson-brown, and mucousy. ??Th e entire specimen is submitted as (A1) and (A2). ??(Julissa Simmons/[facility] End of Report Specimen Performing Organization Address City/State/ZIP Code Phon e Number [facility] [address] [place] [address] SERVICES ALF [facility] [address] [place] [address] CYTOPATHOLOGY (08/29/2001 0:00 EDT) Pathology Report: CYTOPATHOLOGY REPORT [facility]F [facility] Reports generated via electronic interface contain breezy ginal data; however they are lacking the format of the original re port. Caution should be taken when reading/interpreting unfo rmatted reports. Name: ? FRANK RIVERS ? Accession #: ? [id number] : ? 1965 (Age: 35) ??F ?Collect Date: ? 09/2001 Location: ? [facility] ? Receive Date : ? 08/31/2001 Provider: ?DEANDRA LAW MD Copy to: ? Specimen/Source: ?ThinPrep Pap Test, Cervix/ Endocervix Last Menstrual Period: ? 08/02/01 Hormonal/Contraceptive Status: ? Control Pills Previous Gynecologic Pathology: ? BALA III: Treatment History: ? LEEP: ? SPECIMEN ADEQUACY ? Satisfactory for Evaluation - transformation zone component present - scant squamous epithelial component secondary to exc essive blood GENERAL CATEGORIZATION ? Negative for Intraepithelial Lesion or Malignan cy INTERPRETATION ? Reactive cellular cathleen nges associated with inflammation present (includes repair). ? Document reviewed and electronically signed by: ? PHILIP HAQUE MD ? Report Date: ??09/07/2001 14:25 End of Report Specimen Performing Organization Address City/State/ZIP Code Phon e Number [facility] [address] [place] [address] SERVICES ALF [facility] [address] [place] [address] documented in this encounter Visit Diagnoses Not on filedocumented in this encounter
--- OUTSIDE RECORDS SUMMARY | 2021-08-22 00:18 | XMS_ITS | Encounter Summary ---
:1965 Author Organization [facility] Address [address] [place] [address] Care Team Providers Name Role Phone Unavailable Primary Care Provider Unavailable Encounter Details Date Type Department Care Team Description 06/18/2009 Results Only [facility] Robb He NP Laboratory Services [address] [facility] [id number] [place] [address] [phone] Social History Tobacco Use Types Packs/Day Years Used Date Never Assessed Sex Assigned at Date Recorded Not on file documented as of this encounter Plan of Treatment Not on filedocumented as of this encounter Procedures Procedure Name Priority Date/Time Associated Diagnosis Comme [facility] CYTOPATHOLOGY Routine 06/18/2009 0:00 EDT Results for this procedure are i n the results section . documented in this encounter Results CYTOPATHOLOGY (06/18/2009 0:00 EDT) Pathology Report: CYTOPATHOLOGY REPORT ? [facility] ? LAB Reports generated via [employer] interface contain original data; ? however they are lacking the format of the original report. ? Caution should be taken when reading/interpreting unformatted reports. ? Name: ? FRANK RIVERS ? Accession #: ? [id number] ? : ? 1965 (Age: 43) ??F ?Collect Date: ? 06/18/2009 ? Location: ? [facility] ? Receive Date: ? 06/19/2009 ? Provider: ?KENDY OCAMPO NP ? Copy to: ? Specimen/Source: ? Pap Test, Cervix/Endocervix, ThinPrep Imaging System ? with manual evaluation ? Last Menstrual Period: ? 04/10 ? Hormonal/Contraceptive Statu s: ? Yes: Ortho-Novum ? Previous Gynecologic Patholo gy: ? BALA III: 08/98 ? Treatment History: ? Endometrial biopsy: 07/11/02 ? LEEP: 05/99 ? Other: ? Additional clinical informat ion: Colon carcinoma 2000 ? HPVA - HPV testing requested if ASC-US on the current ThinPrep Pap test. ? SPECIMEN ADEQUACY ? Satisfactory for Eval uation ? - transformation zone compon ent present ? GENERAL CATEGORIZATION ? Negative for Intraepi thelial Lesion or Malignancy ? INTERPRETATION ? Reactive cellular cathleen nges associated with inflammation present (includes ?? repair). ? Shift in mike present sugge stive of bacterial vaginosis. ? Document reviewed and electr onically signed by: ? PROSPER LUGO MD [facility] ? Report Date: ??05/07/ 2010 10:51 ? End of Report ? Specimen Performing Organization Address City/State/ZIP Code Phon e Number [facility] [address] [place] [address] SERVICES ALF [facility] [address] [place] [address] documented in this encounter Visit Diagnoses Not on filedocumented in this encounter
--- OUTSIDE RECORDS SUMMARY | 2021-08-22 00:18 | XMS_ITS | Encounter Summary ---
:1965 Author Organization [facility] Address [address] [place] [address] Care Team Providers Name Role Phone Deandra Hutchins MD Primary Care Provider Encounter Details Date Type Department Care Team Description 05/19/2005 Results Only [facility] - Kendy Cee, [employer] conversion [address] [phone] (Wo rk) Social History Tobacco Use Types Packs/Day Years Used Date Never Assessed Sex Assigned at Date Recorded Not on file documented as of this encounter Plan of Treatment Not on filedocumented as of this encounter Procedures Procedure Name Priority Date/Time Associated Diagnosis Comme nts CYTOPATHOLOGY Routine 05/19/2005 0:00 EST Results for this procedure are i n the results section . documented in this encounter Results CYTOPATHOLOGY (05/19/2005 0:00 EST) Pathology Report: CYTOPATHOLOGY REPORT [facility] Reports generated via electronic interface contain breezy ginal data; however they are lacking the format of the original re port. Caution should be taken when reading/interpreting unfo rmatted reports. Name: ? FRANK ZIMMERMAN ? Accession #: ? [id number] : ? 1965 (Age: 39) ??F ?Collect Date: ? 04/23 Location: ? [facility] ? Receive Date : ? 05/20/2005 Provider: ?KENDY NICHOLS [employer]ER Copy to: ? Specimen/Source: ? ThinPrep Pap Test, Cervix/Endocervix, processed on [employer] ThinPrep Imaging System, with manual evaluation Last Menstrual Period: ? 05/15/05 Other: ? HPVA - HPV testing requested if ASC-US on the current ThinPrep Pap test. ? SPECIMEN ADEQUACY ? Satisfactory for Evaluation - transformation zone component present GENERAL CATEGORIZATION ? Negative for Intraepithelial Lesion or Malignan cy ? Document reviewed and electronically signed by: ? YULI Moya(ASCP) ? Report Date: ??05/21/2005 16:29 End of Report Specimen Performing Organization Address City/State/ZIP Code Phon e Number [facility] [address] [place] [address] [facility] [address] [place] [address] documented in this encounter Visit Diagnoses Not on filedocumented in this encounter Care Teams Food Concession Manager Relationship Specialty Start Date End Date Deandra Hutchins MD PCP - General 12/18/09 10/02/[address] [place] [phone] documented as of this encounter
== END ==
PROVIDERS: PCP Family Medicine; Visit Provider Internal Medicine
DX: K74.60 Unspecified cirrhosis of liver (principal)
CPT/HCPCS: 76700

== ENCOUNTER 2021-11-03 18:39 | Emergency (ER) | payer MEDICARE, MEDICAID, SELFPAY ==
[2021-11-03 18:46] VITALS: BP 133/41; PULSE 72; RESP 18; TEMP 36.6; O2SAT 96
[2021-11-03 19:49] LABS: Abs Immature Grans 0.01 10^3/uL (0.0-0.06); Absolute Basophil Count 0.03 10^3/uL (0.0-0.2); Absolute Eosinophil Count 0.14 10^3/uL (0.0-0.7); Absolute Lymphocyte Count 1.23 10^3/uL (1.2-3.4); Absolute Monocyte Count 0.51 10^3/uL (0.1-0.8); Absolute Neutrophil Count 2.56 10^3/uL (1.2-6.7); Basophils % 0.7; Eosinophils % 3.1; HCT 35.4 % (36.0-46.0); HGB 12.5 g/dL (11.2-15.7); Immature Grans % 0.2; Lymphocytes % 27.5; MCHC 35.3 % (32.0-36.0); MCV 102 fL (80-95); MPV 10.4 fL (8.0-11.0); Monocytes % 11.4; Neutrophils % 57.1; Platelet Count 105 10^3/uL (130-400); RBC 3.47 10^6/uL (3.93-5.22); RDW 13.5 % (11.7-14.6); RDW-SD 51.3 fL; WBC 4.48 10^3/uL (4.4-10.8)
[2021-11-03 19:59] LABS: INR 1.4 (0.9-1.1); PTT Activated 27.9 sec (21.0-27.5); Prothrombin Time 13.8 sec (9.3-11.0)
[2021-11-03 20:22] LABS: AST 68 U/L (15-37); Albumin 2.7 g/dL (3.4-5.0); Anion Gap 8.7 mmol/L (3-11); BUN 12 mg/dL (7-18); Bilirubin, Total 0.9 mg/dL (0.2-1.0); CO2 26.3 mmol/L (21.0-32.0); CREATININE 0.7 mg/dL (0.55-1.02); Calcium 8.2 mg/dL (8.5-10.1); Chloride 105 mmol/L (98-107); Estimated GFR 102.07 (mL/min/1.73m2); Glucose 144 mg/dL (74-106); NT-proBNP 73 pg/mL (<300); Potassium 3.4 mmol/L (3.5-5.1); Sodium 140 mmol/L (136-145)
--- NOTE | 2021-11-03 20:36 | W.ED.GENAD ---
Discharge Plan Disposition Patient Disposition: HOME Condition: Good Discharge Details Clinical Impression: Edema, Hypoalbuminemia Primary Care Provider: Deandra Hutchins ED Provider: Joe Winn Home Meds and New Rx's Prescriptions: New furosemide [Lasix] 20 mg tablet 20 mg PO DAILY 7 Days Qty: 7 0RF Continued calcium carbonate-vitamin D3 1,000 mg(2,500 mg)-800 unit tablet PO BID magnesium chloride 64 mg Tablet Extended Release 113 mg PO DAILY ferrous gluconate 256 mg (28 mg iron) tablet 256 mg PO BID albuterol sulfate [ProAir HFA] 90 mcg/actuation HFA aerosol inhaler 2 puff inhalation .Q4-6HR PRN levalbuterol tartrate [Xopenex HFA] 45 mcg/actuation HFA aerosol inhaler 2 inh inhalation .Q4-6HR metformin 500 mg tablet 1,000 mg PO BID acetaminophen [Mapap Extra Strength] 500 MG tablet 1 - 2 tab PO PRN PRN ondansetron 4 mg tablet,disintegrating 4 mg PO Q8H PRN (Reason: nausea and vomiting) Qty: 30 0RF methylphenidate HCl [Ritalin] 20 MG tablet 20 mg PO TID Discharge Instructions Instructions: Edema (ED) Additional Instructions: At this time your laboratory work-up is reassuring. Your potassium is slightly low at 3.4. Please eat foods high in potassium like bananas, avocados, and legumes. Please take the Lasix as directed for the next week. Avoid salty foods. If you notice any worsening of your symptoms, or any new symptoms such as vomiting, diarrhea, fever, chills, shortness of breath, chest pain, numbness, weakness, or fainting , please return immediately to the emergency department for reevaluation. Please follow up with your primary care provider as soon as possible for reassessment and reevaluation. As always, it was a pleasure participating in your medical care today. Referrals: Deandra Hutchins MD [Primary Care Provider] - Discharge Data Discharge Date/Time-TO BE ENTERED AT DEPARTURE: 11/03/21 21:04 Medical Decision Making This is a 55-year-old female with a past medical history of cholecystectomy, type 2 diabetes, GERD, PTSD, previous bleeding problems secondary to previous liver disease, who presents today for evaluation of generalized edema. Patient states that for the last 24 hours she has had mild swelling in her legs, her feet, and she also feels slightly edematous in her hands. She denies any fever or chills. She did go to the ER yesterday and noticed that it was slightly painful to walk on her feet. She does admit to eating some chips the day before, but denies any other excessive salty food. She denies any chest pain or shortness of breath. She denies any exertional dyspnea. She does state that she used to be on a diuretic, but was taken off a few months ago because the pharmacy would not refill the prescription. She denies any other complaints at this time. No other modifying factors. Physical exam demonstrates trace pitting edema in the lower extremities, no signs of significant fluid overload. Lungs are clear. Oxygenation is excellent. No evidence of systemic severe edema. Patient denies any urinary symptoms. Laboratory work-up was performed, no white count bandemia or left shift. Minimal increase in MCV however hemoglobin is stable. We will recommend outpatient vitamin B complex supplementation. Electrolytes stable aside from minimally low potassium at 3.4. Will recommend continued outpatient potassium supplementation. Renal function is excellent. proBNP is normal. Albumin is low which may be a component of her swelling. We will give a dose of Lasix here, and a few days of 20 mg Lasix for home. At this stage I do not think that she requires prolonged diuresis. However I do think it is important that she follow-up closely with her primary care provider for further discussion of this. Will recommend close PCP follow-up, avoidance of salty foods. Discussed red flags for which to return. At this time no evidence of severe illness that requires admission, but explained the importance of close follow-up. I have extensively reviewed the treatment plan and discharge instructions with the patient. I have addressed all patient concerns at this time. The patient was made aware of what symptoms to monitor for that would warrant a return to the emergency department. Discussed the plan with the patient, they demonstrate verbal understanding and agreement with our assessment and plan at this time. The documentation in this chart was dictated using [employer] dictation software. Please excuse any dictation errors. HPI General Date/Time Provider Initiated Documentation: 11/03/21 18:53. HPI Narrative: This is a 55-year-old female with a past medical history of cholecystectomy, type 2 diabetes, GERD, PTSD, previous bleeding problems secondary to previous liver disease, who presents today for evaluation of generalized edema. Patient states that for the last 24 hours she has had mild swelling in her legs, her feet, and she also feels slightly edematous in her hands. She denies any fever or chills. She did go to the ER yesterday and noticed that it was slightly painful to walk on her feet. She does admit to eating some chips the day before, but denies any other excessive salty food. She denies any chest pain or shortness of breath. She denies any exertional dyspnea. She does state that she used to be on a diuretic, but was taken off a few months ago because the pharmacy would not refill the prescription. She denies any other complaints at this time. No other modifying factors. Related Data Home Medications Medication Instructions Recorded Confirmed acetaminophen 500 mg tablet (Mapap 1 - 2 tab PO PRN PRN 08/19/15 06/25/21 Extra Strength) methylphenidate HCl 20 mg tablet 20 mg PO TID 05/27/17 06/25/21 (Ritalin) albuterol sulfate 90 mcg/actuation 2 puff inhalation .Q4-6HR PRN 01/22/20 06/25/21 aerosol inhaler (ProAir HFA) ferrous gluconate 256 mg (28 mg 256 mg PO BID 01/22/20 06/25/21 iron) tablet levalbuterol tartrate 45 2 inh inhalation .Q4-6HR 01/22/20 06/25/21 mcg/actuation aerosol inhaler (Xopenex HFA) calcium carbonate 1,000 mg-vitamin tab PO BID 04/15/20 06/25/21 D3 20 mcg (800 unit) tablet magnesium chloride 64 mg 113 mg PO DAILY 06/06/20 06/25/21 tablet,extended release metformin 500 mg tablet 1,000 mg PO BID 06/17/20 06/25/21 ondansetron 4 mg disintegrating 4 mg PO Q8H PRN nausea and 05/21/21 06/25/21 tablet vomiting #30 tabs furosemide 20 mg tablet (Lasix) 20 mg PO DAILY 7 days #7 tabs 11/03/21 Previous Rx's Medication Instructions Recorded ondansetron 4 mg disintegrating 4 mg PO Q8H PRN nausea and 05/21/21 tablet vomiting #30 tabs furosemide 20 mg tablet (Lasix) 20 mg PO DAILY 7 days #7 tabs 11/03/21 Allergies Allergy/AdvReac Type Severity Reaction Status Date / Time codeine AdvReac Unknown unable to Unverified 06/25/21 12:54 take related to colon removal ibuprofen AdvReac Unknown unable to Unverified 06/25/21 12:54 take related to colon removal General Stated Complaint: Vascular WILL: 3 Review of Systems All systems reviewed & are unremarkable except as noted in HPI and below PFSH All Active Problems (Updated 11/04/21 @ 10:01 by Joe Winn DO) Edema (Acute) Hypoalbuminemia (Acute) ADHD (Acute) Crohn's disease in remission (Acute) Anemia of chronic disease (Acute) Acute exacerbation of chronic low back pain (Acute) Back pain (Acute) Stoma bleed (Acute) Chest pain (Acute) H/O malignant neoplasm of colon (Acute) DVT prophylaxis (Acute) Discharge planning issues (Acute) Anemia, blood loss (Acute) GI bleed (Chronic) Medical History Adjustment disorder Chronic low back pain Colon cancer Depression with anxiety Diabetes mellitus type 2 in obese GERD (gastroesophageal reflux disease) Hyposmia HADLEY (obstructive sleep apnea) PTSD (post-traumatic stress disorder) Vitamin B12 deficiency Vitamin D deficiency Surgical History H/O ileostomy History of endometrial ablation S/P colectomy S/P D&C (status post dilation and curettage) S/P LEEP Family History Mother , age 49 due to heart disease Diabetes Heart disease Hypertension Father Heart disease Social History Smoking/Tobacco Use Status: Never Smoking risk assessment performed?: Yes Alcohol Intake: never Drug use: Never Substance use type: does not use Household members: family Housing: house Number of Children: 5 number of grandchildren: 15 Pets and animals: Yes Pets and animals: dog(s) What type of physical activity do you participate in: none Seatbelt use: always Do you feel safe at home: Yes Do you feel safe in your relationship?: Yes Exam Narrative Exam Narrative: 1.Const: Well-nourished, Well-developed, appearing stated age 2.Eyes: PERRL, no conjunctival injection, and symmetrical lids. 3.ENT: Atraumatic external nose and ears. Moist MM. Neck: Symmetric, trachea midline, No thyromegaly. 4.CVS: +S1/S2, No murmurs or gallops. Peripheral pulses 2+ and equal in all extremities. Brisk capillary refill in all extremities. 5.RESP: Unlabored respiratory effort. Clear to auscultation bilaterally. No wheezes rales or rhonchi 6.GI: Soft, Nontender/Nondistended, No hepatosplenomegaly. No guarding or rebound. 7.MSK: Normocephalic/Atraumatic, Extremities w/o deformity or ttp No cyanosis or clubbing, Normal movement of all extremities.Trace pitting edema noted in the lower extremities. Minimal pitting edema by the ankles and feet. Good capillary refill. Good sensation. Dorsalis pedis +2 bilaterally. No significant swelling that I can appreciate in the hands, however the patient does admit to subjective swelling. Lungs are clear. 8.Skin: Warm, Dry. No rashes or lesions. 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 Sensation grossly intact, no focal neurologic deficits. 10.Psych: (AAO) x3. Appropriate mood and affect Course Vital Signs Vital signs: Vital Signs Temperature 36.6 C 11/03/21 18:46 Pulse 72 11/03/21 18:46 Respiratory Rate 18 11/03/21 18:46 Blood Pressure 133/41 L 11/03/21 18:46 Pulse Oximetry 96 11/03/21 18:46 Temperature 36.6 C 11/03/21 18:46 Temperature Source Temporal Artery Scan 11/03/21 18:46 Pulse 72 11/03/21 18:46 Respiratory Rate 18 11/03/21 18:46 Blood Pressure 133/41 L 11/03/21 18:46 Blood Pressure Position Sitting 11/03/21 18:46 Pulse Oximetry 96 11/03/21 18:46 Oxygen Delivery Method Room Air 11/03/21 18:46 Oxygen Flow Rate 0 11/03/21 18:46 Lab/Test Results Lab/Test Results: Laboratory Tests Range/Units 11/03/21 11/03/21 11/03/21 19:25 19:25 19:25 WBC (4.4-10.8) 10^3/uL 4.48 RBC (3.93-5.22) 10^6/uL 3.47 L Hgb (11.2-15.7) g/dL 12.5 Hct (36.0-46.0) % 35.4 L MCV (80-95) fL 102 H MCH (27.0-33.0) pg 36.0 H MCHC (32.0-36.0) % 35.3 RDW (11.7-14.6) % 13.5 Plt Count (130-400) 10^3/uL 105 L MPV (8.0-11.0) fL 10.4 Immature Gran % 0.2 Neutrophils % 57.1 Lymphocytes % 27.5 Monocytes % 11.4 Eosinophils % 3.1 Basophils % 0.7 Nucleated RBC % (0.0-0.3) % 0.0 Absolute Neutrophils (1.2-6.7) 10^3/uL 2.56 Absolute Lymphocytes (1.2-3.4) 10^3/uL 1.23 Absolute Monocytes (0.1-0.8) 10^3/uL 0.51 Absolute Eosinophils (0.0-0.7) 10^3/uL 0.14 Absolute Basophils (0.0-0.2) 10^3/uL 0.03 PT (9.3-11.0) sec 13.8 H INR (0.9-1.1) 1.4 H APTT (21.0-27.5) sec 27.9 H Sodium (136-145) mmol/L 140 Potassium (3.5-5.1) mmol/L 3.4 L Chloride (98-107) mmol/L 105 Carbon Dioxide (21.0-32.0) mmol/L 26.3 Anion Gap (3-11) mmol/L 8.7 BUN (7-18) mg/dL 12 Creatinine (0.55-1.02) mg/dL 0.7 Est GFR (CKD-EPI 2020) (mL/min/1.73m2) 102.07 Glucose (74-106) mg/dL 144 H Calcium (8.5-10.1) mg/dL 8.2 L Total Bilirubin (0.2-1.0) mg/dL 0.9 AST (15-37) U/L 68 H NT-Pro-B Natriuret Pep (<300) pg/mL 73 Albumin (3.4-5.0) g/dL 2.7 L
[2021-11-03 20:44] LABS: Total Protein 6.6 g/dL (6.4-8.2)
[2021-11-03 20:56] LABS: Alkaline Phosphatase 122 U/L (46-116)
[2021-11-03] MEDS: Furosemide 20 MG TAB (20:56)
[2021-11-03] MEDS: Potassium Chloride 20 MEQ TABCR 40 MEQ PO (20:56)
[2021-11-03 21:30] LABS: ALT 38 U/L (14-59)
== END 2021-11-03 21:04 | disposition home or self-care (01) ==
PROVIDERS: Emergency Provider Student in an Organized Health Care Education/Training Program; PCP Family Medicine
DX: E88.09 Other disorders of plasma-protein metabolism, not elsewhere classified (principal); R60.9 Edema, unspecified; E11.9 Type 2 diabetes mellitus without complications; Z79.84 Long term (current) use of oral hypoglycemic drugs; Z87.19 Personal history of other diseases of the digestive system
CPT/HCPCS: 80053; 99283; 83880; 85025; 85610; 85730; 99284

== ENCOUNTER 2021-11-27 21:21 | Outpatient (REF) | payer MEDICARE, MEDICAID, SELFPAY ==
[2021-11-27 15:51] LABS: Hemoglobin A1C 5.6 % (<5.7)
[2021-11-27 16:22] LABS: Vitamin D 25 Total 36.7 ng/mL (30-100)
[2021-11-27 16:25] LABS: BUN 9 mg/dL (7-18); CREATININE 0.6 mg/dL (0.55-1.02); Calcium 8.3 mg/dL (8.5-10.1); Chloride 107 mmol/L (98-107); Estimated GFR 105.28 (mL/min/1.73m2); Folate 14.2 ng/mL (8.6-20.0); Glucose 124 mg/dL (74-106); Sodium 141 mmol/L (136-145); TSH (W/Ref FT4) 1.91 uIU/mL (0.36-3.74); Vitamin B12 949 pg/mL (193-986)
--- OUTSIDE RECORDS SUMMARY | 2021-11-27 21:32 | XMS_ITS | Encounter Summary ---
:1965 [place] [address] Care Team Providers Name Role Phone Iliana Hurt APRN Primary Care Provider Reason for Referral Consultation (Routine) - Closed Specialty Diagnoses / Procedures Referred By Contact Refer red To Contact Gastroenterology Diagnoses S/P TIPS (transjugular intrahepatic portosystemic shunt) Tatyana Coyne Drinane, Mary C, MD MD [address] [place] [address] [facility] [place] [address] Referral ID Status Reason Start Date Expiration Date Visits V isits Requested Authorized [id number] Closed Consult, 10/09/2020 04/07/2021 1 1 Test & Treat Reason for Visit Auth/Cert Specialty Diagnoses / Procedures Referred By Contact Refer red To Contact Diagnoses S/P TIPS (transjugular intrahepatic portosystemic shunt) Hepatic cirrhosis Procedures PRO INSERT TRANSVEN INTRAHEP PORTOSYS SHUNT TRANSJUGULAR INTRAHEPATIC PORTAL SHUNT (WRVU 16.97) Referral ID Status Reason Start Date Expiration Date Visits Requ ested Visits Authorized [id number] 1 1 Encounter Details Date Type Department Care Team Description 10/08/2020 - Hospital Short Stay Unit at Alek Berman MD [facility] [place] [address] S/P TIPS 10/09/2020 Encounter [place] [address] ([facility] [place] [address] intrahepatic [facility] portosyst emic [place]unt) [place] [id number] Social History Tobacco Use Types Packs/Day Years [...] Doc Knutson - 10/09/2020 1:49 PM EDT [facility] Vascular and Interventional Radiology Transjugular Intrahepatic Portosystemic [...] is during regular office hours, please call [phone]. If it is after regular office hours, oron s or holidays, please call [phone] and ask to speak to the Rn Telephone Triage on callfor Interventional Radiology. XX You have [...] 2020 11:30 - Dr. Hi's office at [facility] Gastroenterology will call you directly to schedule a follow up visit. - We will schedule you for a blood draw, likely at the end of the week. We will notify you when thisis scheduled. Your Inpatient Doctor(s) at [facility]: - Dr. Tatyana Coyne documented in this [...] Curry RN - 10/09/2020 2:31 PM EDT [facility] Short Stay Unit Discharge Note All relevant [...] pt, has f/u with pcp & at [facility], has script at local pharmacy, verbalized understanding. [...] Yes, see above Preferred Pharmacy: See below [id number] - [place], [place] - [address] [place] [address] [address] [address] This plan was formulated with input from patient, Janice Silvestre, and team. All are in agreement with plan. Yanni Dale RN Case Imaging Technician of Care Management Vidal Delgado - 10/09/2020 7:41 AM EDT Vascular and [...] weeks as outpatient (OKto be done at [facility], which is located closer to the patient). Vidal Delgado MD Diagnostic and Interventional Radiology (PGY 6) Pager No.: [phone] Saul Curry RN - 10/08/2020 6:18 PM [...] and transfer 1315: Report given to Saul HARRELLramp flight attendant to short stay Vidal Delgado - 10/08/2020 6:58 AM EDT INTERVENTIONAL RADIOLOGY [...] pain ID: 54 y.o. Female presents to [facility] for TIPS History of Present Illness: AISHWARYA Rivers is a 54 y.o. 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 for monitoring post TIPS procedure. Patient is followed by Dr. Hi at [facility] and was referred to IR [...] Supplies ([employer] Night Drain Container) Misc by [facility]Non-Drug; Combo Route) route. 10/07/2020 at Unknown time [...] IJV by ultrasound ?? Pressure measurements following PREVENTIVE MAINTENANCE COORDINATOR of parenchymal tract to 8 mm: Main [...] ?? Pressure measurements following TIPS creation and PREVENTIVE MAINTENANCE COORDINATOR to 8 mm: Main portal vein 12 [...] Admit to follow with Hospital Medicine (pager [phone]) - signout provided tothe admitting team. IR will also follow. Assessment: Janice Rivers is a 54 y.o. 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 for monitoring post TIPS procedure. Will plan [...] Miscellaneous Notes Plan of Care - Manuel Wang, RN - 10/09/2020 2:50 AM EDT OUTCOME [...] - 199 [facility] mg/dL [facility] Comment: Supplemental ranges: <140 mg/dL before meals <180 mg/dL all other times of the day Specimen Anatomical Collection Method Collection Time Receive d Time (Source) Location / / Volume Laterality Blood 10/09/2020 11:22 10/09/2020 AM EDT 11:22 AM EDT Alek Berman MD POINT OF CARE TEST ORDERABLE S Performing Organization Address City/[facility]/ZIP Code Phon e Number [address] POCT Glucose (10/09/2020 7:24 AM EDT) athologist Signature POC Glucose 164 65 - 199 [facility] mg/dL [facility] Comment: Supplemental ranges: <140 mg/dL before meals <180 mg/dL all other times of the day Specimen Anatomical Collection Method Collection Time Receive d Time (Source) Location / / Volume Laterality Blood 10/09/2020 7:24 AM 7:24 EDT AM EDT Alek Berman MD POINT OF CARE TEST ORDERABLE S Performing Organization Address City/[facility]/ZIP Code Phon e Number [address] (ABNORMAL) Differential, Automated (10/09/2020 3:15 AM EDT) [facility] gist Method Time Signature Neutrophils % 88.0 % [facility]ORATORY Neutr Abs (ANC) 10.48 (H) 1.70 - [facility] 6.10 [facility] x10(3)/[facility] L LABORATORY Lymphocytes % 5.9 % [facility]ORY Lymphocytes Abs 0.7 (L) 0.9 - 3.2 [facility] x10(3)/[facility] LABORATORY Monocytes % 5.4 % [facility] Monocyte Abs 0.6 0.3 - 0.9 [facility] x10(3)/[facility] LABORATORY Eosinophils % 0.0 % [facility] Eosinophils Abs 0.0 0.0 - 0.4 [facility] x10(3)/[facility] LABORATORY Basophils % 0.2 % [facility] Basophils Abs 0.0 0.0 - 0.1 [facility] x10(3)/[facility] LABORATORY Immature Gran % 0.50 % [facility] Comment: Immature granulocytes(IG's)percentage an d absolute count will include metamyelocytes, myelocytes, and promyelo cytes. Blood smears from CBCs yielding IG's will be scanned manually for concor dance. If this scan disagrees with the automated IG or if promyelocytes are not ed, a manual differential will be performed. Lisset Gran Abs 0.06 (H) 0.00 - 0.04 x10(3)/[facility] LABORATORY Specimen Anatomical Collection Method Collection Time Receive d Time (Source) Location / / Volume Laterality Blood 10/09/2020 3:15 AM 3:19 EDT AM EDT Resulting Agency Comment Spec In Lab Nicolle Miranda MD HEMATOLOGY ORDERABLES Performing Organization Address City/State/[place] [address] (ABNORMAL) Hemogram (10/09/2020 3:15 AM EDT) Analysis Performed At Patho logist Time Signature WBC 11.9 (H) 4.0 - 9.5 [facility] x10(3)/[facility] LABORATORY RBC 4.33 4.00 - [facility] 5.21 [facility] x10(6)/[facility] LABORATORY Hemoglobin 13.7 11.7 - [facility] 15.5 gm/dL [facility] Hematocrit 40.2 35.7 - [facility] 45.8 % [facility] MCV 92.8 82.6 - [facility] 94.4 [facility] LABORATORY MCH 31.6 27.1 - [facility] 32.0 pg [facility] MCHC 34.1 31.7 - [facility] 35.0 gm/dL [facility] Platelets 109 (L) 145 - 357 [facility] x10(3)/[facility] LABORATORY RDWSD 48.8 (H) 37.0 - [facility] 46.0 [facility] LABORATORY RDWCV 14.1 11.5 - [facility] 14.1 % [facility] MPV 11.4 7.6 - 12.9 [facility] LABORATORY nRBC % Auto 0.0 % [facility]ORY nRBC Abs Auto 0.000 0.000 - [facility] 0.000 [facility] x10(3)/[facility] LABORATORY Specimen Anatomical Collection Method Collection Time Receive d Time (Source) Location / / Volume Laterality Blood 10/09/2020 3:15 AM 3:19 EDT AM EDT Resulting Agency Comment Spec In Lab Nicolle Miranda MD HEMATOLOGY ORDERABLES Performing Organization Address City/State/ZIP [place] [address] (ABNORMAL) Basic Metabolic Panel (non-fasting) (10/09/2020 3:15 AM EDT) P athologist Signature Glucose Lvl 167 65 - 199 [facility] mg/dL [facility] Comment: Diabetes: >=200 mg/dL plus symp toms BUN 11 8 - 18 mg/dL [facility]ATORY Creatinine 0.63 (L) 0.70 - 1.20 mg/dL [facility] Sodium 138 135 - 145 mmol/L [facility] Potassium 4.4 3.5 - 5.0 mmol/L [facility] Comment: Please note: ??Patients with WBC >100,00 0 may have falsely elevated Potassium levels. ??For accurate Potassium quantif ication in these patients send serum separator tube (gold top) for subsequent determinations. ??Contact the Clinical Chemistry Laboratory if there are any qu estions. Chloride 104 98 - 107 mmol/L [facility] CO2 24 22 - 31 mmol/L [facility] Anion Gap 10 5 - 15 mmol/L [facility] Calcium 8.5 8.5 - 10.5 mg/dL [facility] Estimated GFR 102 >=60 mL/min/1.73 m?? [facility] Comment: This patient? s estimated [...] Organization Address City/State/[place] [address] (ABNORMAL) Prothrombin Time (10/09/2020 3:15 AM EDT) P athologist Signature PT 17.5 (H) 9.4 - 12.5 [facility] LABORATORY INR 1.5 [facility] Comment: An INR <2.0 indicates [...] Miranda MD HEMATOLOGY ORDERABLES Performing Organization Address City/[facility]/ZIP Code Phon e Number [address] (ABNORMAL) Hepatic Function Panel (10/09/2020 3:15 AM EDT) athologist Signature Total Protein 6.4 6.1 - 8.0 [facility] gm/dL [facility] Albumin 3.5 3.2 - 5.2 [facility] gm/dL [facility] AST 68 (H) 0 - 30 [facility] unit/L [facility] Comment: result rechecked-cecile ALT 35 (H) 0 - 30 unit/L [facility] Comment: result rechecked-cecile Alk Phos 76 35 - 105 unit/L [facility] Total Bilirubin 1.7 (H) 0.2 - 1.3 mg/dL [facility] Bili, Direct 0.7 (H) 0.0 - 0.3 mg/dL [facility] Specimen Anatomical Collection Method Collection Time Receive d Time (Source) Location / / Volume Laterality Blood 10/09/2020 3:15 AM 3:19 EDT AM EDT Resulting Agency Comment Spec In Lab Nicolle Miranda MD CHEMISTRY ORDERABLES Performing Organization Address City/[facility]/ZIP Code Phon e Number [address] POCT Glucose (10/08/2020 11:46 AM EDT) athologist Signature POC Glucose 142 65 - 199 [facility] mg/dL [facility] Comment: Supplemental ranges: <140 mg/dL before meals <180 mg/dL all other times of the day Specimen Anatomical Collection Method Collection Time Receive d Time (Source) Location / / Volume Laterality Blood 10/08/2020 11:46 10/08/2020 AM EDT 11:46 AM EDT Alek Berman MD POINT OF CARE TEST ORDERABLE S Performing Organization Address City/[facility]/ZIP Code [place] [address] (ABNORMAL) Prothrombin Time (10/08/2020 5:59 AM EDT) athologist Signature PT 14.4 (H) 9.4 - 12.5 [facility] LABORATORY INR 1.3 [facility] Comment: An INR <2.0 indicates [...] Huitron MD HEMATOLOGY ORDERABLES Performing Organization Address City/[facility]/ZIP Code [place] [address] (ABNORMAL) Comprehensive metabolic panel (non-fasting) (10/08/2020 5:59 AM EDT) athologist Signature Glucose Lvl 137 65 - 199 [facility] mg/dL [facility] Comment: Diabetes: >=200 mg/dL plus symp toms BUN 12 8 - 18 mg/dL [facility] Creatinine 0.52 (L) 0.70 - 1.20 mg/dL [facility] Sodium 140 135 - 145 mmol/L [facility] Potassium 3.9 3.5 - 5.0 mmol/L [facility] Comment: Please note: ??Patients with WBC >100,00 0 may have falsely elevated Potassium levels. ??For accurate Potassium quantif ication in these patients send serum separator tube (gold top) for subsequent determinations. ??Contact the Clinical Chemistry Laboratory if there are any qu estions. Chloride 106 98 - 107 mmol/L [facility] CO2 22 22 - 31 mmol/L [facility] Anion Gap 12 5 - 15 mmol/L [facility] Calcium 9.2 8.5 - 10.5 mg/dL [facility] Total Protein 7.4 6.1 - 8.0 gm/dL [facility] Albumin 4.1 3.2 - 5.2 gm/dL [facility] AST 35 (H) 0 - 30 unit/L [facility] ALT 18 0 - 30 unit/L [facility] Alk Phos 82 35 - 105 unit/L [facility] Total Bilirubin 1.5 (H) 0.2 - 1.3 mg/dL [facility] Estimated GFR 108 >=60 mL/min/1.73 m?? [facility] Comment: This patient? s estimated [...] Organization Address City/State/[place] [address] (ABNORMAL) Hemogram (10/08/2020 5:59 AM EDT) Analysis Performed At Patho logist Time Signature WBC 5.6 4.0 - 9.5 [facility] x10(3)/[facility] LABORATORY RBC 4.73 4.00 - [facility] 5.21 [facility] x10(6)/[facility] LABORATORY Hemoglobin 15.0 11.7 - [facility] 15.5 gm/dL [facility] Hematocrit 45.1 35.7 - [facility] 45.8 % [facility] MCV 95.3 (H) 82.6 - [facility] 94.4 [facility] LABORATORY MCH 31.7 27.1 - [facility] 32.0 pg [facility] MCHC 33.3 31.7 - [facility] 35.0 gm/dL [facility] Platelets 99 (L) 145 - 357 [facility] x10(3)/[facility] LABORATORY RDWSD 51.6 (H) 37.0 - [facility] 46.0 [facility] LABORATORY RDWCV 14.5 (H) 11.5 - [facility] 14.1 % [facility] MPV 11.8 7.6 - 12.9 [facility] LABORATORY nRBC % Auto 0.0 % [facility] nRBC Abs Auto 0.000 0.000 - [facility] 0.000 [facility] x10(3)/[facility] LABORATORY Specimen Anatomical Collection Method Collection Time Receive d Time (Source) Location / / Volume Laterality Blood 10/08/2020 5:59 AM 6:01 EDT AM EDT Resulting Agency Comment Spec In Lab Rob Huitron MD HEMATOLOGY ORDERABLES Performing Organization Address City/State/[place] [address] documented in this encounter [...] Curry RN) 0333 (Given - Provider: Manuel Wang, SHARRI) 1025 (Given - Provider: Azeem Shields, SHARRI) [...] or Regular (not diet) soda OR If SOIL ENGINEER O, give 15 gram glucose 40% oral [...] first.
documented in this encounter Care Teams Information Technology Technician Relationship Specialty Start Date End Date Iliana Hurt, ARSEN PCP - General Family Medicine 07/18/20 [address] [facility] [place] [address] documented as of this encounter
--- OUTSIDE RECORDS SUMMARY | 2021-11-27 21:32 | XMS_ITS | Encounter Summary ---
:1965 Author Organization [facility] [place] [address] Care Team Providers Name Role Phone Iliana Hurt APRN Primary Care Provider Reason for Referral Diagnostic Test (Routine) - Closed Specialty Diagnoses / Procedures Referred By Contact Refer red To Contact Radiology Diagnoses Hepatic cirrhosis, unspecified hepatic cirrhosis type, unspecified whether ascites present Juani Hi MD [facility] Interventionl Rad Procedures IR TIPS [facility] [place] [address] [place] [address] Fax: Referral ID Status Reason Start Date Expiration Date Visits V isits Requested Authorized [id number] Closed Specialty 07/23/2020 01/22/2022 1 1 Service Requested Encounter Details Date Type Department Care Team Description 07/23/2020 Orders Only Gastroenterology at [facility] Juani Hi, Hepatic cirrhosis, [facility] Jourdan [place]ure[place] [address] One Medical cirrhosis type, Center unspecified whether [place], [place] ascites present [facility] Social History Tobacco Use Types Packs/Day [...] nt was followed by Dr. Hi at [facility]. ??The patient has had recurrent episodes of [...] present documented in this encounter Care Teams Wire Chief Relationship Specialty Start Date End Date Iliana Hurt APRN PCP - General Family Medicine 07/18/20 [place] [id number] documented as of this encounter
--- OUTSIDE RECORDS SUMMARY | 2021-11-27 21:32 | XMS_ITS | Encounter Summary ---
:1965 Author Organization [facility] [place] [address] Care Team Providers Name Role Phone Iliana Hurt APRN Primary Care Provider Reason for Referral Diagnostic Test (Routine) - Closed Specialty Diagnoses / Procedures Referred By Contact Refer red To Contact Radiology Diagnoses Hepatic cirrhosis, unspecified hepatic cirrhosis type, unspecified whether ascites present Juani Hi MD [facility] Interventionl Rad Procedures IR TIPS [facility] [place] [address] [place] [address] Fax: Referral ID Status Reason Start Date Expiration Date Visits V isits Requested Authorized [id number] Closed Specialty 07/23/2020 01/22/2022 1 1 Service Requested Reason for Visit Auth/Cert Specialty Diagnoses / Procedures Referred By Contact Refer red To Contact Diagnoses S/P TIPS (transjugular intrahepatic portosystemic shunt) Hepatic cirrhosis Procedures PRO INSERT TRANSVEN INTRAHEP PORTOSYS SHUNT TRANSJUGULAR INTRAHEPATIC PORTAL SHUNT (WRVU 16.97) Referral ID Status Reason Start Date Expiration Date Visits Requ ested Visits Authorized [id number] 1 1 Encounter Details Date Type Department Care Team Description 10/08/2020 Hospital Encounter Radiology at [facility] Juani Hi, Hepatic cirrhosis, [facility] unspecified hepatic Drive [facility] Medical cirrhosis type, [facility] unspecified whether [phone] [place], [place] ascites present [phone] [id number] Social History Tobacco Use Types Packs/Day Years Used Date Never Smoker Smokeless Tobacco: Never Used Alcohol Use Standard Drinks/Week Comments Not Currently 0 (1 standard drink = 0.6 oz pure alcoho l) Sex Assigned at Date Recorded Not on file documented as of this encounter Discharge Instructions Discharge Arya Moulton RN - 10/08/2020 8:07 AM EDT [facility] Vascular and Interventional Radiology Transjugular Intrahepatic [...] is during regular office hours, please call [phone]. If it is after regular office hours, oron weekends or holidays, please call [phone] and ask to speak to the [employer] Pan[employer] on callfor Interventional Radiology. XX You have [...] of : 1965 AGE: 54 y.o. Address: [address] [address] (home) Mobile: No relevant phone numbers on file. Referring Provider: Juani Hi REASON FOR VISIT: Order Questions Answers Where will study be performed? [facility] Radiology [120] Is the patient on [...] patient was followed by Dr. Hi at [facility]. The patient has had recurrent episodes of variceal bleeding related to her ostomy. The patient underwent work-up at [facility] which revealed a normal echocardiogram and a [...] Notes Brief Op Note - Vidal Delgado - 10/08/2020 11:25 AM EDT INTERVENTIONAL RADIOLOGY [...] IJV by ultrasound ?? Pressure measurements following OBGYN NURSE of parenchymal tract to 8 mm: Main [...] ?? Pressure measurements following TIPS creation and OBGYN NURSE to 8 mm: Main portal vein 12 [...] Admit to follow with Hospital Medicine (pager [phone]) - signout provided tothe admitting team. IR [...] 160 65 - 199 JUANI RUIZ mg/dL [facility] Comment: Supplemental ranges: <140 mg/dL before meals <180 mg/dL all other times of the day Specimen Anatomical Collection Method Collection Time Receive d Time (Source) Location / / Volume Laterality Blood 10/08/2020 4:31 PM 4:31 EDT PM EDT Juani Hi MD POINT OF CARE TEST ORDERABLE S Performing Organization Address City/State/ZIP Code Phon e Number [facility] [place] [address] IR TIPS (10/08/2020 11:24 [...] ostomy. ??The pa scott underwent work-up at [facility] which revealed a normal echocar diogram and [...] more cranial 4 Fr sheath in the [facility] t IJV was exchanged for a [...] right hepatic vein. [facility] and needle resulted in [...] Routine documented in this encounter Care Teams Sprinkler Irrigation Equipment Mechanic Relationship Specialty Start Date End Date Iliana Hurt APRN PCP - General Family Medicine 07/18/20 [address] [place] [address] documented as of this encounter
--- OUTSIDE RECORDS SUMMARY | 2021-11-27 21:32 | XMS_ITS | Encounter Summary ---
:1965 [place] [address] Care Team Providers Name Role Phone Iliana Hurt APRN Primary Care Provider Encounter Details Date Type Department Care Team Description 09/05/2020 TH Visit Interventional Denys Rocha, Hepatic c irrhosis, (TeleHealth) Radiology at [facility] DO unspecified hepatic [facility] cirrhosis type, Drive [address] [place] [address] RADIOLOGY ascites present [phone] [place] [address] Social History Tobacco Use Types Packs/Day Years [...] patient was followed by Dr. Hi at [facility]. The patient has had recurrent episodes of variceal bleeding related to her ostomy. The patient underwent [facility] whichrevealed a normal echocardiogram and a conventional [...] MPH Staff Physician - Interventional Radiology Pager [phone] documented in this encounter Plan of Treatment Not on filedocumented as of this encounter Visit Diagnoses Diagnosis Hepatic cirrhosis, unspecified hepatic c irrhosis type, unspecified whether ascites present documented in this encounter Care Teams Hospital Account Liaison Relationship Specialty Start Date End Date Iliana Hurt APRN PCP - General Family Medicine 07/18/[address] [place] [address] [place] [address] documented as of this encounter
--- OUTSIDE RECORDS SUMMARY | 2021-11-27 21:32 | XMS_ITS | Encounter Summary ---
:1965 Author Organization [facility] Address [address] [place] [address] Care Team Providers Name Role Phone Deandra Hutchins MD Primary Care Provider Reason for Visit - Closed Specialty Diagnoses / Procedures Referred By Contact Refer red To Contact Procedures Deandra Hutchins MD Film Library- Storage Only CT [address] Abdomen & [place] [address] Referral ID Status Reason Start Date Expiration Date Visits Requ ested Visits Authorized [id number] Closed 07/17/2020 07/17/2021 1 1 Encounter Details Date Type Department Care Team Description 07/04/2020 Ancillary Procedure Radiology Library at Deandra Hutchins MD [place] [address] [address] [id number] [phone] (Wo rk) Social History Tobacco Use Types [...] Time Received Time / Laterality Volume Narrative [facility] - 07/17/2020 8:21 PM EDT This exam is auto-finalizing. It's purpo se is for storage only. Deandra Hutchins MD IMG FILM LIBRARY ORDERABLES Performing Organization Address City/State/ZIP Code Phon e Number [place], [place] documented in this encounter Visit Diagnoses Not on filedocumented in this encounter Care Teams Linux Consultant Relationship Specialty Start Date End Date Deandra Hutchins MD PCP - General 06/23/13 07/17/20 [address] [place] [address] documented as of this encounter
--- OUTSIDE RECORDS SUMMARY | 2021-11-27 21:32 | XMS_ITS | Encounter Summary ---
:1965 Author Organization [facility] [place] [address] Care Team Providers Name Role Phone Blank He CELEBRITY MANAGER Primary Care Provider [phone] Encounter Details Date Type Department Care Team Description 06/18/2013 External Results XRay at [facility] Provider, [address] [place] [address] Social History Tobacco Use Types Packs/Day [...] on filedocumented in this encounter Care Teams Recreational Assistant Relationship Specialty Start Date End Date Blank He APRN PCP - General 10/31/12 06/22/13 documented as of this encounter
--- OUTSIDE RECORDS SUMMARY | 2021-11-27 21:32 | XMS_ITS | Encounter Summary ---
:[address] [facility] [place] [address] Care Team Providers Name Role Phone Iliana Hurt ARSEN Primary Care Provider Encounter Details Date Type Department Care Team Description 11/08/2020 Orders Only Radiology at [facility] Gordon Fang [place] [address] DIAGNOSTIC RADIOLOGY [phone] [place], [place] [address] (Wo rk) Social History Tobacco [...] in reference to this procedure ???IR TIPS [[id number]]?? dated 10.08.20. She has stated that she has an extreme amount of swelling, discomfort and pain in her feet. She said she did reach out to her PCP but they told her there was nothing they could do for her to reach out to you. She is asking that you contact her to discuss what she should do. Her contact information is [phone]. Thank you Trish Jmiénez Sr. Clinical [place] [facility] (P) [phone] (f) [phone] [email or web address] I called Ms. Rivers [...] on filedocumented in this encounter Care Teams Cook Chief Relationship Specialty Start Date End Date Iliana Hurt APRN PCP - General Family Medicine 07/18/[address] [place] [address] documented as of this encounter
--- OUTSIDE RECORDS SUMMARY | 2021-11-27 21:32 | XMS_ITS | Encounter Summary ---
:1965 Author Organization [facility] [place] [address] Care Team Providers Name Role Phone Iliana Hurt APRN Primary Care Provider Reason for Visit Diagnostic Test (Routine) - Closed Specialty Diagnoses / Procedures Referred By Contact Refer red To Contact Radiology Diagnoses Hepatic cirrhosis, unspecified hepatic cirrhosis type, unspecified whether ascites present Juani Hi MD [facility] Interventionl Rad Procedures IR TIPS [place] [address] [place] [address] Fax: Referral ID Status Reason Start Date Expiration Date Visits V isits Requested Authorized [id number] Closed Specialty 07/23/2020 01/22/2022 1 1 Service Requested Encounter Details Date Type Department Care Team Description 09/03/2020 Hospital Encounter Radiology at [facility] Juani Hi, Canceled (P-CHANGE [facility] PROVIDER) [facility] [address] [place], [place] [phone] [id number] Social History Tobacco Use Types Packs/Day Years [...] nt was followed by Dr. Hi at [facility]. 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 ??The ashanti chavez underwent work-up at [facility] which revealed a normal echocar diogram [...] more cranial 4 Fr sheath in the [facility] t IJV was exchanged for a [...] on filedocumented in this encounter Care Teams Enterprise Business Architect Relationship Specialty Start Date End Date Iliana Hurt APRN PCP - General Family Medicine 07/18/[address] [place] [address] documented as of this encounter
--- OUTSIDE RECORDS SUMMARY | 2021-11-27 21:32 | XMS_ITS | Encounter Summary ---
:1965 [place] [address] Care Team Providers Name Role Phone Blank He RETAIL ADVERTISING EXECUTIVE Primary Care Provider [phone] Encounter Details Date Type Department Care Team Description 08/10/2012 Orders Only Functional Yazidism Ronen Viveros APRN Program at [facility] [address] [place] [address] [place], [place] [id number] [phone] (Wo rk) Social History Tobacco Use Types [...] on filedocumented in this encounter Care Teams Director Of Safety Relationship Specialty Start Date End Date Blank He, ARSEN PCP - General 10/31/12 06/22/13 documented as of this encounter
--- OUTSIDE RECORDS SUMMARY | 2021-11-27 21:32 | XMS_ITS | Encounter Summary ---
:1965 [place] [address] Care Team Providers Name Role Phone Blank He APRN Primary Care Provider [phone] Encounter Details Date Type Department Care Team Description 01/27/2013 Orders Only Functional Scientology Ronen Viveros APRN Program at [facility] [address] [place] [address] [place], [place] [id number] [phone] (Wo rk) Social History Tobacco Use Types [...] on filedocumented in this encounter Care Teams Casino Manager Relationship Specialty Start Date End Date Blank He APRN PCP - General 10/31/12 06/22/13 documented as of this encounter
--- OUTSIDE RECORDS SUMMARY | 2021-11-27 21:32 | XMS_ITS | Encounter Summary ---
:1965 Author Organization [facility] [address] Care Team Providers Name Role Phone Iliana Hurt APRN Primary Care Provider Reason for Visit Auth/Cert Specialty Diagnoses / Procedures Referred By Contact Refer red To Contact Diagnoses S/P TIPS (transjugular intrahepatic portosystemic shunt) Hepatic cirrhosis Procedures PRO INSERT TRANSVEN INTRAHEP PORTOSYS SHUNT TRANSJUGULAR INTRAHEPATIC PORTAL SHUNT (WRVU 16.97) Referral ID Status Reason Start Date Expiration Date Visits Requ ested Visits Authorized [id number] 1 1 Encounter Details Date Type Department Care Team Description 10/08/2020 Surgery [facility] INT RAHEPATIC PORTAL Drive DR SHUNT (WRVU 16.97) [place] [address] DIAGNOSTIC [phone] RADIOLOGY [place], [place] [address] (Wo rk) Social History Tobacco [...] InstructionsSukhDoc Robb - 10/09/2020 1:49 PM EDT [facility] Vascular and Interventional Radiology Transjugular [...] is during regular office hours, please call [phone]. If it is after regular office hours, oron weekends or holidays, please call [phone] and ask to speak to the Paving Rammer on callfor Interventional Radiology. XX You have [...] 2020 11:30 - Dr. Hi's office at [facility] Gastroenterology will call you directly to schedule a follow up visit. - We will schedule you for a blood draw, likely at the end of the week. We will notify you when thisis scheduled. Your Inpatient Doctor(s) at [facility]: - Dr. Tatyana Coyne documented in this [...] Curry RN - 10/09/2020 2:31 PM EDT [facility] Short Stay Unit Discharge Note All [...] pt, has f/u with pcp & at [facility], has script at local pharmacy, verbalized understanding. [...] Yes, see above Preferred Pharmacy: [facility] below [id number] AT [facility] & [address] [address] This plan was formulated with input from patient, Janice Rivers, and team. All are in agreement with plan. Yanni Dale RN Case Clinical Data Management Manager of Care Management Vidal Delgado - 10/09/2020 [...] weeks as outpatient (OKto be done at [facility], which is located closer to the patient). Vidal Delgado MD Diagnostic and Interventional Radiology (PGY 6) Pager No.: [phone] Saul Curry RN - 10/08/2020 6:18 PM [...] monitor and O2 1218: Report to Sheryl RN for meal break 1245: Pt meets criteria for Phase II Tolerating ice chips without n/v Awaiting bed assignment and transfer 1315: Report given to Saul HARRELLsubstance abuse clinician to short stay 02 Vidal Delgado - 10/08/2020 6:58 AM EDT [...] pain ID: 54 y.o. Female presents to [facility] for TIPS History of Present Illness: AISHWARYA Rivers is a 54 y.o. 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 Patient is followed by Dr. Hi at [facility] and was referred to [...] Supplies ([employer] Night Drain Container) Misc by [facility]Non-Drug; Combo Route) route. 10/07/2020 at Unknown time [...] IJV by ultrasound ?? Pressure measurements following PROFESSOR OF GEOGRAPHY of parenchymal tract to 8 mm: Main [...] ?? Pressure measurements following TIPS creation and PROFESSOR OF GEOGRAPHY to 8 mm: Main portal vein 12 [...] Admit to follow with Hospital Medicine (pager [phone]) - signout provided tothe admitting team. IR will also follow. Assessment: Janice Rivers is a 54 y.o. 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 Will plan [...] Signature POC Glucose 174 65 - 199 [facility] mg/dL [facility] Comment: Supplemental ranges: <140 mg/dL before meals <180 mg/dL all other times of the day Specimen Anatomical Collection Method Collection Time Receive d Time (Source) Location / / Volume Laterality Blood 10/09/2020 11:22 10/09/2020 AM EDT 11:22 AM EDT Alek Berman MD POINT OF CARE TEST ORDERABLE S Performing Organization Address City/State/[place] [address] POCT Glucose (10/09/2020 7:24 AM EDT) P athologist Signature POC Glucose 164 65 - 199 [facility] mg/dL [facility] Comment: Supplemental ranges: <140 mg/dL before meals <180 mg/dL all other times of the day Specimen Anatomical Collection Method Collection Time Receive d Time (Source) Location / / Volume Laterality Blood 10/09/2020 7:24 AM 7:24 EDT AM EDT Alek Berman MD POINT OF CARE TEST ORDERABLE S Performing Organization Address City/State/[place] [address] [facility] [address]ORY [address] (ABNORMAL) Differential, Automated (10/09/2020 3:15 AM EDT) Patholo gist Method Time Signature Neutrophils % 88.0 % [facility] Neutr Abs (ANC) 10.48 (H) 1.70 - [facility] 6.10 [facility] x10(3)/[facility] L LABORATORY Lymphocytes % 5.9 % [facility] Lymphocytes Abs 0.7 (L) 0.9 - 3.2 [facility] x10(3)/[facility] LABORATORY Monocytes % 5.4 % [facility] Monocyte Abs 0.6 0.3 - 0.9 [facility] x10(3)/[facility] LABORATORY Eosinophils % 0.0 % [facility] Eosinophils Abs 0.0 0.0 - 0.4 [facility] x10(3)/[facility] LABORATORY Basophils % 0.2 % [facility] Basophils Abs 0.0 0.0 - 0.1 [facility] x10(3)/[facility] LABORATORY Immature Gran % 0.50 % [facility] Comment: Immature granulocytes(IG's)percentage an d absolute count will include metamyelocytes, myelocytes, and promyelo cytes. Blood smears from CBCs yielding IG's will be scanned manually for concor dance. If this scan disagrees with the automated IG or if promyelocytes are not ed, a manual differential will be performed. Lisset Gran Abs 0.06 (H) 0.00 - 0.04 x10(3)/[facility] LABORATORY Specimen Anatomical Collection Method Collection Time Receive d Time (Source) Location / / Volume Laterality Blood 10/09/2020 3:15 AM 1 3:19 EDT AM EDT Resulting Agency Comment Spec In Lab Nicolle Miranda MD HEMATOLOGY ORDERABLES Performing Organization Address City/State/[place] [address] (ABNORMAL) Hemogram (10/09/2020 3:15 AM EDT) Analysis Performed At Patho logist Time Signature WBC 11.9 (H) 4.0 - 9.5 [facility] x10(3)/[facility] LABORATORY RBC 4.33 4.00 - [facility] 5.21 [facility] x10(6)/[facility] LABORATORY Hemoglobin 13.7 11.7 - [facility] 15.5 gm/dL [facility]ORY Hematocrit 40.2 35.7 - [facility] 45.8 % [facility] LABORATORY MCV 92.8 82.6 - [facility] 94.4 [facility] LABORATORY MCH 31.6 27.1 - [facility] 32.0 pg [facility]ORATORY MCHC 34.1 31.7 - [facility] 35.0 gm/dL [facility]ORY Platelets 109 (L) 145 - 357 [facility] x10(3)/[facility] LABORATORY RDWSD 48.8 (H) 37.0 - [facility] 46.0 [facility] LABORATORY RDWCV 14.1 11.5 - [facility] 14.1 % [facility] LABORATORY MPV 11.4 7.6 - 12.9 [facility] LABORATORY nRBC % Auto 0.0 % [facility] nRBC Abs Auto 0.000 0.000 - [facility] 0.000 [facility] x10(3)/[facility] LABORATORY Specimen Anatomical Collection Method Collection Time Receive d Time (Source) Location / / Volume Laterality Blood 10/09/2020 3:15 AM 1 3:19 EDT AM EDT Resulting Agency Comment Spec In Lab Nicolle Miranda MD HEMATOLOGY ORDERABLES Performing Organization Address City/State/[place] [address] (ABNORMAL) Basic Metabolic Panel (non-fasting) (10/09/2020 3:15 AM EDT) P athologist Signature Glucose Lvl 167 65 - 199 [facility] mg/dL [facility] Comment: Diabetes: >=200 mg/dL plus symp toms BUN 11 8 - 18 mg/dL [facility] Creatinine 0.63 (L) 0.70 - 1.20 mg/dL [facility] Sodium 138 135 - 145 mmol/L [facility] Potassium 4.4 3.5 - 5.0 mmol/L [facility] Comment: Please note: ??Patients with WBC >100,00 0 may have falsely elevated Potassium levels. ??For accurate Potassium quantif ication in these patients send serum separator tube (gold top) for subsequent determinations. ??Contact the Clinical Chemistry Laboratory if there are any qu estions. Chloride 104 98 - 107 mmol/L [facility] CO2 24 22 - 31 mmol/L [facility] Anion Gap 10 5 - 15 mmol/L [facility] LABOR[facility]ORY Calcium 8.5 8.5 - 10.5 mg/dL [facility] Estimated GFR 102 >=60 mL/min/1.73 m?? [facility] Comment: This patient? s estimated [...] Miranda MD CHEMISTRY ORDERABLES Performing Organization Address City/[facility]/ZIP [facility] [place] [address] (ABNORMAL) Prothrombin Time (10/09/2020 3:15 AM EDT) P athologist Signature PT 17.5 (H) 9.4 - 12.5 [facility] LABORATORY INR 1.5 [facility] Comment: An INR <2.0 indicates [...] Miranda MD HEMATOLOGY ORDERABLES Performing Organization Address City/[facility] [place] [address] (ABNORMAL) Hepatic Function Panel (10/09/2020 3:15 AM EDT) P athologist Signature Total Protein 6.4 6.1 - 8.0 [facility] gm/dL [facility]ORY Albumin 3.5 3.2 - 5.2 [facility] gm/dL [facility] AST 68 (H) 0 - 30 [facility] unit/L [facility] Comment: result rechecked-cecile ALT 35 (H) 0 - 30 unit/L [facility] Comment: result rechecked-cecile Alk Phos 76 35 - 105 unit/L [facility] Total Bilirubin 1.7 (H) 0.2 - 1.3 mg/dL [facility] Bili, Direct 0.7 (H) 0.0 - 0.3 mg/dL [facility] LABOR[facility]ORY Specimen Anatomical Collection Method Collection Time Receive d Time (Source) Location / / Volume Laterality Blood 10/09/2020 3:15 AM 1 3:19 EDT AM EDT Resulting Agency Comment Spec In Lab Nicolle Miranda MD CHEMISTRY ORDERABLES Performing Organization Address City/State/ZIP [place] [address] POCT Glucose (10/08/2020 11:46 AM EDT) P athologist Signature POC Glucose 142 65 - 199 [facility] mg/dL [facility] Comment: Supplemental ranges: <140 mg/dL before meals <180 mg/dL all other times of the day Specimen Anatomical Collection Method Collection Time Receive d Time (Source) Location / / Volume Laterality Blood 10/08/2020 11:46 10/08/2020 AM EDT 11:46 AM EDT Alek Berman MD POINT OF CARE TEST ORDERABLE S Performing Organization Address City/[facility]/ZIP [place] [address] (ABNORMAL) Prothrombin Time (10/08/2020 5:59 AM EDT) P athologist Signature PT 14.4 (H) 9.4 - 12.5 [facility] LABORATORY INR 1.3 [facility] Comment: An INR <2.0 indicates [...] Organization Address City/State/[place] [address] (ABNORMAL) Comprehensive metabolic panel (non-fasting) (10/08/2020 5:59 AM EDT) athologist Signature Glucose Lvl 137 65 - 199 [facility] mg/dL [facility] Comment: Diabetes: >=200 mg/dL plus symp toms BUN 12 8 - 18 mg/dL [facility] Creatinine 0.52 (L) 0.70 - 1.20 mg/dL [facility] LAB[facility] Sodium 140 135 - 145 mmol/L [facility] Potassium 3.9 3.5 - 5.0 mmol/L [facility] Comment: Please note: ??Patients with WBC >100,00 0 may have falsely elevated Potassium levels. ??For accurate Potassium quantif ication in these patients send serum separator tube (gold top) for subsequent determinations. ??Contact the Clinical Chemistry Laboratory if there are any qu estions. Chloride 106 98 - 107 mmol/L [facility] CO2 22 22 - 31 mmol/L [facility] Anion Gap 12 5 - 15 mmol/L [facility] Calcium 9.2 8.5 - 10.5 mg/dL [facility] Total Protein 7.4 6.1 - 8.0 gm/dL [facility] Albumin 4.1 3.2 - 5.2 gm/dL [facility] AST 35 (H) 0 - 30 unit/L [facility] ALT 18 0 - 30 unit/L [facility] Alk Phos 82 35 - 105 unit/L [facility] Total Bilirubin 1.5 (H) 0.2 - 1.3 mg/dL [facility] Estimated GFR 108 >=60 mL/min/1.73 m?? [facility] Comment: This patient? s estimated [...] Organization Address City/State/ZIP Code Phon e Number [place] [id number] Drive (ABNORMAL) Hemogram (10/08/2020 5:59 AM EDT) Analysis Performed At Patho logist Time Signature WBC 5.6 4.0 - 9.5 [facility] x[facility](3[facility] LABORATORY RBC 4.73 4.00 - [facility] 5.21 [facility] x10(6)/[facility] LABORATORY Hemoglobin 15.0 11.7 - [facility] 15.5 gm/dL [facility] Hematocrit 45.1 35.7 - [facility] 45.8 % [facility]ORATORY MCV 95.3 (H) 82.6 - [facility] 94.4 [facility] LABORATORY MCH 31.7 27.1 - [facility] 32.0 pg [facility]ORY MCHC 33.3 31.7 - [facility] 35.0 gm/dL [facility] Platelets 99 (L) 145 - 357 [facility] x[facility](3)/[facility] LABORATORY RDWSD 51.6 (H) 37.0 - [facility] 46.0 [facility] LABORATORY RDWCV 14.5 (H) 11.5 - [facility] 14.1 % [facility] LABORATORY MPV 11.8 7.6 - 12.9 [facility] LABORATORY nRBC % Auto 0.0 % [facility] nRBC Abs Auto 0.000 0.000 - [facility] 0.000 [facility] x10(3)/[facility] LABORATORY Specimen Anatomical Collection Method Collection Time Receive d Time (Source) Location / / Volume Laterality Blood 10/08/2020 5:59 AM 6:01 EDT AM EDT Resulting Agency Comment Spec In Lab Rob Huitron MD HEMATOLOGY ORDERABLES Performing Organization Address City/State/[place] [address] documented in this encounter [...] (COMPLETE D) 0720 (Given - Provider: Jossy Farias, RN) 3 mg (0.3 mL), Subcutaneous, ONCE [...] or Regular (not diet) soda OR If ELECTRICAL EQUIPMENT ASSEMBLER O, give 15 gram glucose 40% oral [...] first.
documented in this encounter Care Teams Parimutuel Ticket Seller Relationship Specialty Start Date End Date Iliana Hurt APRN PCP - General Family Medicine 07/18/20 [place] [address] documented as of this encounter
--- OUTSIDE RECORDS SUMMARY | 2021-11-27 21:32 | XMS_ITS | Encounter Summary ---
:1965 Author Organization [facility] [place] [address] Care Team Providers Name Role Phone Iliana Hurt APRN Primary Care Provider Encounter Details Date Type Department Care Team Description 08/14/2020 Orders Only Gastroenterology at [facility] Juani Hi, Hepatic cirrhosis, [facility] Jourdan jauregui [place] [address] [place] [facility] Medical cirrhosis type, [place] unspecified whether [place], [place] ascites present [id number] Social History Tobacco Use Types Packs/Day Years Used Date Never Smoker Sex Assigned at Date Recorded Not on file documented as of this encounter Plan of Treatment Not on filedocumented as of this encounter Visit Diagnoses Diagnosis Hepatic cirrhosis, unspecified hepatic c irrhosis type, unspecified whether ascites present documented in this encounter Care Teams Slip Cover Seamstress Relationship Specialty Start Date End Date Iliana Hurt APRN PCP - General Family Medicine 07/18/20 [place] [address] documented as of this encounter
--- OUTSIDE RECORDS SUMMARY | 2021-11-27 21:34 | XMS_ITS | Encounter Summary ---
:1965 Author Organization [facility] Address [address] [place] [address] Care Team Providers Name Role Phone Deandra Hutchins MD Primary Care Provider Encounter Details Date Type Department Care Team Description 09/28/2018 Results Only [facility]- Janae Alcantara MD [phone] [address] [place] [address] (Wo rk) Social History Tobacco [...] (09/28/2018 15:38 EDT) Pathology SURGICAL PATHOLOGY REPORT [facility] MEDICAL Report: Reports generated via electronic interface conta in original data; CENTER however they are lacking the format of the original re port. LABORATORY Caution should be taken when reading/interpretin g unformatted reports. SERVICES Name: ? FRANK RIVERS ? Accession #: ? [id number] ? : ? 1965 (Age: 5 2) [...] array. There is mild chronic inflammation. ??(Dr. Mack)/[facility] Document reviewed and electronically signed by: RAY [...] Organization Address City/State/ZIP Code Phon e Number [facility] [address] [place] [address] SERVICES documented in this encounter Visit Diagnoses Not on filedocumented in this encounter Care Teams Department Clinician Relationship Specialty Start Date End Date Deandra Hutchins MD PCP - General 12/18/09 10/02/[address] [place] [phone] documented as of this encounter
--- OUTSIDE RECORDS SUMMARY | 2021-11-27 21:34 | XMS_ITS | Encounter Summary ---
:1965 Author Organization [facility] Address [address] [place] [address] Care Team Providers Name Role Phone VernellquincyIliana pleitez KENNETH Primary Care Provider Encounter Details Date Type Department Care Team Description 07/01/2020 Lab Requisition [facility] Outr Resulting Lab, Pathology & Laboratory Provider [facility] [address] [place], [place] [id number] Social History Tobacco Use Types Packs/Day Years [...] Hep B Surface Ab, 5.2 See Note [facility] MEDICAL Quantitative Comment: mIU/mL [facility] Reference Range for Hep B Surface Ab, Quant: SERVICES Positive: >= 10.0 mIU/mL Negative: ??< 10.0 mIU/mL Patient is presumed to not be immune to infection with Hepatitis B Virus. Hep B Surface Ab, Negative See Note [facility] MEDICAL Qualitative Comment: [facility] Reference Range for Hep B Surface Ab, Qual: SERVICES Unvaccinated: ??Negative Vaccinated: ??Positive Specimen Blood - Venous blood (substance) Performing Organization Address City/[facility]/ZIP Code Phon e Number [facility] [address] [place] [address] SERVICES HEPATITIS B SURFACE ANTIGEN (07/01/2020 11:05 EDT) Pathologist Sig nature Hep B Surface Ag Negative Negative [facility] LABORATORY SERVICES Specimen Blood - Venous blood (substance) Performing Organization Address [facility]/ZIP Code Phon e Number [facility] [address] [place] [address] SERVICES HEPATITIS C AB W REFLEX TO HCV RNA BY PCR (07/01/2020 11:05 EDT) Pathologist Sig nature Hep C Antibody Negative Negative [facility] LABORAT ORY SERVICES Specimen Blood - Venous blood (substance) Performing Organization Address [facility] Phon e Number [facility] [address] [place] [address] SERVICES documented in this encounter Visit Diagnoses Not on filedocumented in this encounter Care Teams Cork Tile Floor Layer Relationship Specialty Start Date End Date Iliana Hurt NP PCP - General 10/03/[address] [place] [address] [place] [address] documented as of this encounter
--- OUTSIDE RECORDS SUMMARY | 2021-11-27 21:34 | XMS_ITS | Encounter Summary ---
:1965 Author Organization [facility] Address [address] [place] [address] Care Team Providers Name Role Phone Unavailable Primary Care Provider Unavailable Encounter Details Date Type Department Care Team Description 09/30/2001 Results Only [facility] - Deandra Min MD conversion [address] [facility] [address] [place] [phone] (Wo rk) Social History Tobacco Use Types Packs/Day Years Used Date Never Assessed Sex Assigned at Date Recorded Not on file documented as of this encounter Plan of Treatment Not on filedocumented as of this encounter Procedures Procedure Name Priority Date/Time Associated Diagnosis Comme [facility] SURGICAL PATHOLOGY Routine 09/30/2001 0:00 EDT [...] ? FRANK RIVERS ? Accession #: ? [id number] ? : ? 1965 (Age: 35) ??F [...] Organization Address City/State/ZIP Code Phon e Number [facility] [address] [place] [address] SERVICES [facility] [address] [place] [address] documented in this encounter Visit Diagnoses Not on filedocumented in this encounter
--- OUTSIDE RECORDS SUMMARY | 2021-11-27 21:34 | XMS_ITS | Encounter Summary ---
:1965 Author Organization [facility] Address [address] [place] [address] Care Team Providers Name Role Phone Deandra Hutchins MD Primary Care Provider Encounter Details Date Type Department Care Team Description 09/15/2011 Results Only [facility] Robb Nichols NP Laboratory Services - [address] [place] [address] 790 [facility] [address] [place], [place] [id number] [phone] Social History Tobacco Use Types Packs/Day Years [...] FRANK RIVERS ? Accession #: ? [id number] : ? 1965 (Age: 45) ??F ?Collect Date: ? 08/23 Location: ? [facility] ? Receive Date : ? 09/16/2011 Provider: ?KENDY NICHOLS TURF SALES PERSON Copy to: ? Specimen/Source: ? Pap Test, [...] City/State/ZIP Code Phon e Number [facility] [address] [place] [address] SERVICES [facility] [address] [place] [address] documented in this encounter Visit Diagnoses Not on filedocumented in this encounter Care Teams Rod Finisher Relationship Specialty Start Date End Date Deandra Hutchins MD PCP - General 12/18/09 10/02/[address] [phone] documented as of this encounter
--- OUTSIDE RECORDS SUMMARY | 2021-11-27 21:34 | XMS_ITS | Encounter Summary ---
:1965 Author Organization [facility] Address [address] [place] [address] Care Team Providers Name Role Phone Unavailable Primary Care Provider Unavailable Encounter Details Date Type Department Care Team Description 06/06/1999 Results Only [facility] - Marquise Mix MD conversion [address] [place] [address] Social History Tobacco Use Types Packs/Day Years [...] FRANK RIVERS ? Accession #: ? [id number] : ? 1965 (Age: 33) ??F ?Collect Date: ? 05/23 Location: ?Receive Date: ? 06/06/1999 Provider: ?MARQUISE COVARRUBIAS MD Copy to: ?MARQUISE COVARRUBIAS MD ? Specimen/Source: ?President Celebrity Acquist[employer] ThinPrep Last Menstrual Period: ? GYNECOLOGIC ??CYTOPATHOLOG Y ??REPORT Name: FRANK RIVERS ? [facility] : 1965 ?? 33Y F ?Client ID: [id number] SS#: [id number] ? Ac cession #: [id number] Clinician: MARQUISE COVARRUBIAS MD ?? Location: [facility] ??Copy to: ?? Specimen: ?President Celebrity Acquistion ThinPrep ? Source: Cervix/Endocervix ?Collected: 06/04/99 ? [...] SCT(ASCP) ? Report Date : ?? 06/12/1999 [facility] Archived Tests - Final Diagnosis Text Field: Clinical History : ; ASC US, CHRISTIANO, Cx BALA III, ASCUS, Cx bx BALA III. ? Document reviewed and electronically signed by: ? Conversion ? Report Date: ??06/12/1999 00:00 End of Report Specimen Performing Organization Address City/State/ZIP Code Phon e Number [facility] [address] [place] [address] SERVICES [facility] [address] [place] [address] documented in this encounter Visit Diagnoses Not on filedocumented in this encounter
--- OUTSIDE RECORDS SUMMARY | 2021-11-27 21:34 | XMS_ITS | Encounter Summary ---
:1965 Author Organization [facility] Address [address] [place] [address] Care Team Providers Name Role Phone Unavailable Primary Care Provider Unavailable Encounter Details Date Type Department Care Team Description 12/16/2009 Results Only [facility] Katie Hampton MD Laboratory Services - [address] [place] [address] REY,S [facility] [address] [place] [phone] (Wo rk) Social History Tobacco Use Types Packs/Day Years Used Date Never Assessed Sex Assigned at Date Recorded Not on file documented as of this encounter Plan of Treatment Not on filedocumented as of this encounter Procedures Procedure Name Priority Date/Time Associated Diagnosis Comme [facility] SURGICAL PATHOLOGY Routine 12/16/2009 0:00 EDT Re sults for this procedure are i n the results section. documented in this encounter Results SURGICAL PATHOLOGY (12/16/2009 0:00 EDT) Pathology Report: SURGICAL PATHOLOGY REPORT ? [facility] Reports generated via electr nScaled interface contain original data; ? LAB however they are lacking the format of the original report. ? Caution should be taken when reading/interpreting unformatted reports. ? Name: ? MCNAMIKEY, FRANK ? Accession #: ? [id number] ? : ? 1965 (Age: 44) ??F [...] No hyperplasia iden tified. ? Comment: ? Worksite Wellness Practitioner sectio ns have been reviewed at intradepartmental [...] Organization Address City/State/ZIP Code Phon e Number [facility] [address] [place] [address] SERVICES [facility] [address] [place] [address] documented in this encounter Visit Diagnoses Not on filedocumented in this encounter
--- OUTSIDE RECORDS SUMMARY | 2021-11-27 21:34 | XMS_ITS | Encounter Summary ---
:1965 Author Organization [facility] Address [address] [place] [address] Care Team Providers Name Role Phone Unavailable Primary Care Provider Unavailable Encounter Details Date Type Department Care Team Description 08/04/1999 Results Only [facility] - Natalie Raphael, Chr istopher, conversion DO 111 [facility] [address] [facility] [address] [address] [place] [address] [place] [address] (Wo rk) Social History Tobacco Use Types Packs/Day Years Used Date Never Assessed Sex Assigned at Date Recorded Not on file documented as of this encounter Plan of Treatment Not on filedocumented as of this encounter Procedures Procedure Name Priority Date/Time Associated Diagnosis Comme [facility] SURGICAL PATHOLOGY Routine 08/04/1999 0:00 EDT [...] ? FRANK ZIMMERMAN ? Accession #: ? [id number] ? : ? 1965 (Age: 33) ??F [...] and concurs with the diagnosis. ??( Dr. Riley)/[facility] Document reviewed and electronically signed by: Agueda [...] specimen is entirely submitted as (C). ??(Chetan Coyle)/[facility] End of Report Specimen Performing Organization Address City/State/ZIP Code Phon e Number [facility] [address] [place] [phone] SERVICES [facility] [address] [place] [address] documented in this encounter Visit Diagnoses Not on filedocumented in this encounter
--- OUTSIDE RECORDS SUMMARY | 2021-11-27 21:34 | XMS_ITS | Encounter Summary ---
:1965 Author Organization [facility] Address [address] [place] [address] Care Team Providers Name Role Phone Unavailable Primary Care Provider Unavailable Encounter Details Date Type Department Care Team Description 08/29/2001 Results Only [facility] - Deandra Min MD conversion [address] [facility] [address] [place] [phone] (Wo rk) Social History Tobacco Use Types [...] ? FRANK RIVERS ? Accession #: ? [id number] ? : ? 1965 (Age: 35) ??F [...] reviewed and electronically signed by: Neville Cortez [facility] Report ??Date: 09/01/2001 16:16 By [...] is submitted as (A1) and (A2). ??(Julissa Simmons/[facility] End of Report Specimen Performing Organization Address City/State/ZIP Code Phon e Number [facility] [address] [place] [address] SERVICES [facility] [address] [place] [address] CYTOPATHOLOGY (08/29/2001 0:00 EDT) Pathology Report: CYTOPATHOLOGY REPORT [facility] Reports generated via electronic interface contain breezy ginal data; however they are lacking the format of the original re port. Caution should be taken when reading/interpreting unfo rmatted reports. Name: ? FRANK RIVERS ? Accession #: ? [id number] : ? 1965 (Age: 35) ??F ?Collect [...] Organization Address City/State/ZIP Code Phon e Number [facility] [address] [place] [address] SERVICES [facility] [address] [place] [address] documented in this encounter Visit Diagnoses Not on filedocumented in this encounter
--- OUTSIDE RECORDS SUMMARY | 2021-11-27 21:34 | XMS_ITS | Clinical Summary ---
:1965 Author Organization [facility] Address [address] [place] [address] Care Team Providers Name Role Phone Iliana Hurt SALES AND PRODUCTION MANAGER Primary Care Provider Encounters Date Type Specialty Care Team Description 11/27/2021 Lab Requisition Clinical Laboratory Outr Resulting Lab , Provider 11/27/2021 Lab Requisition Clinical Laboratory Outr Resulting Lab , Provider from Last 3 Months Social History Tobacco Use Types Packs/Day Years Used Date Never Assessed Sex Assigned at Date Recorded Not on file Plan of Treatment Health Maintenance Due Date Last Done Comments COVID-19 Vaccine (#1) 1970 Hepatitis C Screen Completed 01/09/2021, 07/01/2020 Procedures Procedure Name Priority Date/Time Associated Diagnosis Comme nts CALCIUM, IONIZED Routine 11/27/2021 11:22 EDT Res ults for this procedure are i n the results section. from Last 3 Months Results (ABNORMAL) CALCIUM, IONIZED (11/27/2021 11:22 EDT) Calcium, Ionized 1.06 (L)Comment: 1.14 - 1.35 [facility] Testing performed mmol/L LABORATORY on heparinized SERVICES plasma. Results may be biased 5% lower than that of whole blood. Specimen Blood - Venous blood (substance) Performing Organization Address City/State/ZIP Code Phon e Number [facility] [address] [place] [address] SERVICES from Last 3 Months Care Teams Agent Broker Relationship Specialty Start Date End Date Iliana Hurt NP PCP - General 10/03/18 [address] [facility] [place] [id number]
--- OUTSIDE RECORDS SUMMARY | 2021-11-27 21:34 | XMS_ITS | Encounter Summary ---
:[address] [facility] Address [address] [place] [address] Care Team Providers Name Role Phone VernellquincyIliana pleitez KENNETH Primary Care Provider Encounter Details Date Type Department Care Team Description 07/01/2020 Lab Requisition [facility] Outr Resulting Lab, Pathology & Laboratory Provider [facility] [address] [place], [place] [address] Social History Tobacco Use Types Packs/Day Years [...] 11:05 EDT) Pathologist Sig nature Hold Hold [facility] LABORATOR Y SERVICES Specimen Blood - Venous blood (substance) Performing Organization Address City/[facility]/ZIP Code Phon e Number [facility] [address] [place] [address] SERVICES ALPHA 1 ANTITRYPSIN (07/01/2020 11:05 EDT) Pathologist Sig nature Alpha 1 Antitrypsin 155 90 - 200 mg/dL [facility] SERVICES Specimen Blood - Venous blood (substance) Performing Organization Address City/State/ZIP Code Phon e Number [facility] [address] [place] [address] SERVICES (ABNORMAL) CELIAC DISEASE PANEL (07/01/2020 11:05 EDT) Tissue 1.2 <4.0 U/mL [facility] Transglutaminase Comment: CENTER Antibody IGA A negative result may be due to IgA deficiency and does not rule out celiac disease. LABORATORY SERVICES ? Negative: ??<4.0 U/mL ? Weak Positive: ??4.0 - 10.0 U/mL ? Positive: ??>10.0 U/mL Results were obtained with александр VitaSensisA Feebboe R h-tTG IgA MATT assay on the Galazar DSX. IgA 557 (H) 85 - 499 [facility] mg/dL CENTER LABORATORY SERVICES Celiac Disease Negative Serology. [facility] Interpretation Celiac disease CENTER unlikely. LABORATORY Approximately 10% of SERVICES patients with celiac disease are seronegative. Patients who are already adhering to a gluten-free diet may also be seronegative. If celiac disease is highly clinically suspected, referral to gastroenterology for additional evaluation is recommended. Specimen Blood - Venous blood (substance) Performing Organization Address City/State/ZIP Code Phon e Number [facility] [address] [place] [address] SERVICES documented in this encounter Visit Diagnoses Not on filedocumented in this encounter Care Teams Drug Coordinator Relationship Specialty Start Date End Date Iliana Hurt NP PCP - General 10/03/18 [address] [facility], [place] [address] documented as of this encounter
--- OUTSIDE RECORDS SUMMARY | 2021-11-27 21:34 | XMS_ITS | Encounter Summary ---
:1965 Author Organization [facility] Address [address] [place] [address] Care Team Providers Name Role Phone Iliana Hurt CORE BAKER Primary Care Provider Encounter Details Date Type Department Care Team Description 01/09/2021 Lab Requisition [facility] Outr Resulting Lab, Pathology & Laboratory Provider [facility] [address] [place], [place] [address] Social History Tobacco Use Types Packs/Day Years [...] 156 90 - 200 mg/dL [facility] LABORATORY SERVICES Specimen Blood - Venous blood (substance) Performing Organization Address City/State/[facility] Code Phon e Number [facility] [address] [place] [address] SERVICES documented in this encounter Visit Diagnoses Not on filedocumented in this encounter Care Teams Drum Worker Relationship Specialty Start Date End Date Iliana Hurt NP PCP - General 10/03/18 [facility] [place] [id number] documented as of this encounter
--- OUTSIDE RECORDS SUMMARY | 2021-11-27 21:34 | XMS_ITS | Encounter Summary ---
:1965 Author Organization [facility] Address [address] [place] [address] Care Team Providers Name Role Phone Unavailable Primary Care Provider Unavailable Encounter Details Date Type Department Care Team Description 05/14/2004 Results Only [facility] - Kendy Cee, KENNETH conversion [address] [facility] [address] [place] [phone] (Wo rk) Social History Tobacco Use Types Packs/Day Years Used Date Never Assessed Sex Assigned at Date Recorded Not on file documented as of this encounter Plan of Treatment Not on filedocumented as of this encounter Procedures Procedure Name Priority Date/Time Associated Diagnosis Comme [facility] CYTOPATHOLOGY Routine 05/14/2004 [...] FRANK RIVERS ? Accession #: ? [id number] : ? 1965 (Age: 38) ??F ?Collect Date: ? 04/23 Location: ? [facility] ? Receive Date : ? 05/16/2004 Provider: ?KENDY NICHOLS MEDICAL RESIDENT Copy to: ? Specimen/Source: ?ThinPrep Pap Test, Cervix/ Endocervix Last Menstrual Period: ? 05/05/04 ? SPECIMEN ADEQUACY ? Satisfactory for Evaluation - transformation zone component present GENERAL CATEGORIZATION ? Negative for Intraepithelial Lesion or Malignan cy ? Document reviewed and electronically signed by: ? YULI Bates(ASCP)(IAC) ? Report Date: ??05/19/2004 15:34 End of Report Specimen Performing Organization Address City/State/ZIP Code Phon e Number [facility] [address] [place] [address] SERVICES [facility] [address] [place] [address] documented in this encounter Visit Diagnoses Not on filedocumented in this encounter
--- OUTSIDE RECORDS SUMMARY | 2021-11-27 21:34 | XMS_ITS | Encounter Summary ---
:1965 Author Organization [facility] Address [address] [place] [address] Care Team Providers Name Role Phone VernellquincyIliana pleitez KENNETH Primary Care Provider Encounter Details Date Type Department Care Team Description 01/09/2021 Lab Requisition [facility] Outr Resulting Lab, Pathology & Laboratory Provider [facility] [address] [place], [place] [id number] Social History Tobacco Use Types Packs/Day Years [...] Hep B Surface Ab, >1000.0 See Note [facility] Quantitative Comment: mIU/mL [facility] Reference Range for Hep B Surface Ab, Quant: SERVICES Positive: >= 10.0 mIU/mL Negative: ??< 10.0 mIU/mL Patient is presumed to be immune to infection with Hep atitis B Virus. Hep B Surface Ab, Positive See Note [facility] Qualitative Comment: [facility] Reference Range for Hep B Surface Ab, Qual: SERVICES Unvaccinated: ??Negative Vaccinated: ??Positive Specimen Blood - Venous blood (substance) Performing Organization Address City/[facility]/ZIP Code Phon e Number [facility] [address] [place] [address] SERVICES HEPATITIS B SURFACE ANTIGEN (01/09/2021 8:52 EST) Pathologist Sig nature Hep B Surface Ag Negative Negative [facility] SERVICES Specimen Blood - Venous blood (substance) Performing Organization Address [facility] Phon e Number [facility] [address] [place] [address] SERVICES HEPATITIS C AB W REFLEX TO HCV RNA BY PCR (01/09/2021 8:52 EST) Pathologist Sig nature Hep C Antibody Negative Negative [facility] ORY SERVICES Specimen Blood - Venous blood (substance) Performing Organization Address [facility] Phon e Number [facility] [address] [place] [address] SERVICES documented in this encounter Visit Diagnoses Not on filedocumented in this encounter Care Teams Lie Detector Operator Relationship Specialty Start Date End Date Iliana Hurt NP PCP - General 10/03/[address] [place] [address] documented as of this encounter
--- OUTSIDE RECORDS SUMMARY | 2021-11-27 21:34 | XMS_ITS | Encounter Summary ---
:1965 Author Organization [facility] Address [address] [place] [address] Care Team Providers Name Role Phone Deandra Hutchins MD Primary Care Provider Encounter Details Date Type Department Care Team Description 05/19/2005 Results Only [facility] - Kendy Cee, DIRECTOR OF INTELLIGENCE conversion [address] [phone] (Wo rk) Social History Tobacco Use Types [...] FRANK ZIMMERMAN ? Accession #: ? [id number] : ? 1965 (Age: 39) ??F ?Collect Date: ? 04/23 Location: ? [facility] ? Receive Date : ? 05/20/2005 Provider: ?KENDY NICHOLS DIRECTOR OF INTELLIGENCE Copy to: ? Specimen/Source: ? ThinPrep Pap Test, Cervix/Endocervix, processed on [employer] [address] ThinPrep Imaging System, with manual evaluation Last [...] e Number [facility] [address] [place] [address] SERVICES [facility] [address] [place] [address] documented in this encounter Visit Diagnoses Not on filedocumented in this encounter Care Teams Leave Specialist Relationship Specialty Start Date End Date Deandra Hutchins MD PCP - General 12/18/09 10/02/[address] [place] [phone] documented as of this encounter
--- OUTSIDE RECORDS SUMMARY | 2021-11-27 21:34 | XMS_ITS | Encounter Summary ---
:1965 Author Organization [facility] Address [address] [place] [address] Care Team Providers Name Role Phone Unavailable Primary Care Provider Unavailable Encounter Details Date Type Department Care Team Description 10/10/1999 Results Only [facility] - Natalie Raphael, Chr istopher, conversion DO 111 [facility] [address] [facility] [address] [place] [address] [place] [address] (Wo rk) Social History Tobacco Use Types Packs/Day Years Used Date Never Assessed Sex Assigned at Date Recorded Not on file documented as of this encounter Plan of Treatment Not on filedocumented as of this encounter Procedures Procedure Name Priority Date/Time Associated Diagnosis Comme [facility] SURGICAL PATHOLOGY Routine 10/10/1999 0:00 EDT Re sults for this procedure are i n the results section. documented in this encounter Results SURGICAL PATHOLOGY (10/10/1999 0:00 EDT) Pathology Report: SURGICAL PATHOLOGY REPORT [facility] Reports generated via electronic interface contain breeyz ginal data; LAB however they are lacking the format of the original re port. Caution should be taken when reading/interpreting unfo rmatted reports. Name: ? FRANK ZIMMERMAN ? Accession #: ? [id number] ? : ? 1965 (Age: 33) ??F [...] margins negat guillermo for tumor. 2. ?Active body worker isabel colitis, consistent with inflammatory bowel disease. [...] surgi bethany resection margin A3 ?Full thickness sales promotion representative section of small bowel mucosa A4 ?Senior Project Controls Specialist section of ileocecal v alve A5 ?Senior Project Controls Specialist section of cecum A6 ?Representat guillermo section of dilated proximal portion of large bowel A7 ?Senior Project Controls Specialist section of mucos a adjacent to surgical [...] f distal tip of appendix and one sales promotion representative cross section A19-A21 ? Three lymph [...] End of Report Specimen Performing Organization Address City/State/[facility] Phon e Number [facility] [address] [place] [address] SERVICES [facility] [address] [place] [address] documented in this encounter Visit Diagnoses Not on filedocumented in this encounter
--- OUTSIDE RECORDS SUMMARY | 2021-11-27 21:34 | XMS_ITS | Encounter Summary ---
:1965 Author Organization [facility] Address [address] [place] [address] Care Team Providers Name Role Phone Deandra Hutchins MD Primary Care Provider Encounter Details Date Type Department Care Team Description 08/15/2015 Results Only [facility]- Iliana Mcmanus NP [phone] [address] [facility] [address] (Wo rk) Social History Tobacco Use [...] (08/15/2015 0:00 EDT) Pathology Report: CYTOPATHOLOGY REPORT [facility] Reports generated via electronic interface contain breezy ginal data; SERVICES however they are lacking the format of the original re port. Caution should be taken when reading/interpreting unfo rmatted reports. Name: ? FRANK RIVERS ? Accession #: ? [id number] ? : ? 1965 (Age: [age]) ??F ?Collect Date: ? 08/15/2015 ? Location: ? [facility] ? Receive Date: ? 08/16/19 16 ? Provider: ILIANA CANSECO FRONT END ALIGNMENT SPECIALIST Copy to: PELON MAYFIELD MD ? Final [...] types 16,18,31,3 3,35, 39,45,51,52,56,58,59,66, and 68 by quality worker media robinson amplification. Comments Document reviewed and electronically signed by: ? System Interface ? Report date: 09/03/2015 By the signature above, the attending physician certif ies that he/she has personally conducted a gross and/or microscopic examin ation of the described specimens and rendered or confirmed the above diagnosi s. End of Report Specimen Performing Organization Address [facility]/State/ZIP Code Phon e Number [facility] [address] [place] [address] SERVICES documented in this encounter Visit Diagnoses Not on filedocumented in this encounter Care Teams Search Engine Marketing Strategist Relationship Specialty Start Date End Date Deandra Hutchins MD PCP - General 12/18/09 10/02/[address] [phone] documented as of this encounter
--- OUTSIDE RECORDS SUMMARY | 2021-11-27 21:34 | XMS_ITS | Encounter Summary ---
:1965 Author Organization [facility] Address [address] [place] [address] Care Team Providers Name Role Phone VernellquincyIliana pleitez KENNETH Primary Care Provider Encounter Details Date Type Department Care Team Description 04/19/2020 Lab Requisition [facility] Outr Resulting Lab, Pathology & Laboratory Provider [facility] [address] [place] [address] Social History Tobacco Use Types Packs/Day Years Used Date Never Assessed Sex Assigned at Date Recorded Not on file documented as of this encounter Plan of Treatment Not on filedocumented as of this encounter Procedures Procedure Name Priority Date/Time Associated Diagnosis Comme nts CEA Routine 04/19/2020 11:51 EST Results for this procedure are i n the results section . documented in this encounter Results CEA (04/19/2020 11:51 EST) CEA <0.5 See Note [facility] Comment: ng/mL LABORATORY % Distribution of CEA (ng/mL): SERVICES ??0.0 - 2.5 in 98.2% of Nonsmokers and 87.3% of Smoke rs ??2.6 - 5 in 1.8% of Nonsmokers and 8% of Smokers ??5.1 - 10.1 in 4.7% of Smokers NOTE: Serum CEA concentration shou ld not be interpeted as absolute evidence for the presence or absence of malignant disease. ?? Assayed on Siemens ADVIA Ramiro taur XPT using chemiluminescent technology. ??Values obtained by different assay methods cannot be used interchangeably. Specimen Blood - Venous blood (substance) Performing Organization Address City/State/ZIP Code Phon e Number [facility]OR[facility]ORY [address] [place] [address] SERVICES documented in this encounter Visit Diagnoses Not on filedocumented in this encounter Care Teams Rn Pacu Relationship Specialty Start Date End Date Iliana Hurt NP PCP - General 10/03/18 [place] [address] documented as of this encounter
--- OUTSIDE RECORDS SUMMARY | 2021-11-27 21:34 | XMS_ITS | Encounter Summary ---
:1965 Author Organization [facility] Address [address] [place] [address] Care Team Providers Name Role Phone Iliana Hurt COIN DEALER Primary Care Provider Encounter Details Date Type Department Care Team Description 11/27/2021 Lab Requisition [facility] Outr Resulting Lab, Pathology & Laboratory Provider [facility] [address] [place], [place] [id number] Social History Tobacco Use Types Packs/Day Years Used Date Never Assessed Sex Assigned at Date Recorded Not on file documented as of this encounter Plan of Treatment Pending Results Name Type Priority Associated Diagnoses Date/Ti me PTH INTACT Lab Routine 11/27/2021 11:2 2 EDT documented as of this encounter Visit Diagnoses Not on filedocumented in this encounter Care Teams 4Th Grade Teacher Relationship Specialty Start Date End Date Iliana Hurt NP PCP - General 10/03/18 [place] [address] documented as of this encounter
--- OUTSIDE RECORDS SUMMARY | 2021-11-27 21:34 | XMS_ITS | Encounter Summary ---
:1965 Author Organization [facility] Address [address] [place] [address] Care Team Providers Name Role Phone Unavailable Primary Care Provider Unavailable Encounter Details Date Type Department Care Team Description 06/18/2009 Results Only [facility] Robb He NP Laboratory Services [address] [facility] [address] [place] [address] [phone] Social History Tobacco Use Types Packs/Day Years Used Date Never Assessed Sex Assigned at Date Recorded Not on file documented as of this encounter Plan of Treatment Not on filedocumented as of this encounter Procedures Procedure Name Priority Date/Time Associated Diagnosis Comme [facility] CYTOPATHOLOGY Routine 06/18/2009 0:00 EDT Results for this procedure are i n the results section . documented in this encounter Results CYTOPATHOLOGY (06/18/2009 0:00 EDT) Pathology Report: CYTOPATHOLOGY REPORT ? [facility] ? LAB Reports generated via [employer] interface contain original data; ? however they are lacking the format of the original report. ? Caution should be taken when reading/interpreting unformatted reports. ? Name: ? FRANK RIVERS ? Accession #: ? [id number] ? : ? 1965 (Age: 43) ??F [...] City/State/ZIP Code Phon e Number [facility] [address] [place] [address] SERVICES [facility] [address] [place] [address] documented in this encounter Visit Diagnoses Not on filedocumented in this encounter
--- OUTSIDE RECORDS SUMMARY | 2021-11-27 21:34 | XMS_ITS | Encounter Summary ---
:1965 Author Organization [facility] Address [address] [place] [address] Care Team Providers Name Role Phone Iliana Hurt DIRECTOR MBA Primary Care Provider Encounter Details Date Type Department Care Team Description 01/09/2021 Lab Requisition [facility] Outr Resulting Lab, Pathology & Laboratory Provider [facility] [address] [place], [place] [address] Social History Tobacco Use Types Packs/Day Years [...] IgA 557 (H) 85 - 499 mg/dL [facility] SERVICES Specimen Blood - Venous blood (substance) Performing Organization Address City/State/ZIP Code Phon e Number [facility] [address] [place] [address] SERVICES documented in this encounter Visit Diagnoses Not on filedocumented in this encounter Care Teams Machine Package Sealer Relationship Specialty Start Date End Date Iliana Hurt NP PCP - General 10/03/18 [facility] [place] [address] documented as of this encounter
--- OUTSIDE RECORDS SUMMARY | 2021-11-27 21:34 | XMS_ITS | Encounter Summary ---
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 Specimen Blood - Venous blood (substance) Narrative [facility] LABORATORY SERVICES - 08/14/2021 9:52 EDT Fourth Generation assay performed on the Siemens Audinateaur XPT. Performing Organization Address City/State/ZIP Code Phon e Number [facility] [address] [place] [address] SERVICES documented in this encounter Visit Diagnoses Not on filedocumented in this encounter Care Teams General Counselor Relationship Specialty Start Date End Date Iliana Hurt NP PCP - General 10/03/18 [place] [address] documented as of this encounter
--- OUTSIDE RECORDS SUMMARY | 2021-11-27 21:34 | XMS_ITS ---
:1965 Author Care Team Providers Name Role Phone DR. ALEX CANSECO Primary Care Provider [phone] DR. ALEX CANSECO Referring Provider [phone] ALEX CANSECO Primary Care Provider [phone] MONY CARRERO Primary Care Provider [phone] MONY CARRERO Referring Provider [phone] Allergies Code Code System Name Reaction Severity [...] 3 times a day by oral route. furosemide 20 mg tablet Active ? Not avai lable TAKE 1 TABLET BY MOUTH EVERY DAY metformin 500 mg tablet Active ? Not avai lable Take 2 tablets twice a day by oral route. methylphenidate 20 mg tablet Active ? Not available Take 1 tablet 3 times a day by oral route. spironolactone 50 mg tablet Active ? Not available TAKE 1 TABLET BY MOUTH EVERY DAY Tylenol Extra Strength 500 mg tablet Active [...] Performed by ? 10/08/1999 Colostomy Information not [facility] lab 10/08/1999 Removal of Colon Information not [facility] 08/23/2019 US, Abdomen, [facility] - Radiology [address] [place] [address] (Work Place) 06/27/2020 CT, Abdomen, W/ Contrast Xray [facility] [address] [place], [place] [address] (Work Place) 07/01/2020 CT, Abdomen + Pelvis, W/ Contrast Xray [facility] [address] [place] [address] (Work Place) 12/20/2020 US, Abdomen, Limited Xray [facility] [address] [place] [address] (Work Place) 11/28/2020 US, Duplex, Abdomen Xray [facility] [address] [place] [address] (Work Place) 07/08/2021 US, Abdomen Xray [facility] [address] [place] [address] (Work Place) Results Lab Results Date Name Specimen Result Interpretation Description Value Range Status Address ? 07/01/2020 CBC W/ Auto Diff ? No ? ? ? observation recorded. 08/17/2019 CBC W/ Auto Diff ? No ? ? ? [facility] observation [facility] nt recorded. [facility] [address] [facility] [address] [place], [place] 08/29/2018 CBC W/ Auto Diff WB Normal Wbc 4.8 4.8- Fin al [facility] 10^3/ 10.8 Hospital mm^3 10^3 Laboratory & /mm^ Pathology: 90 3 [facility] ? ? WB Low Rbc 3.74 3.90 Final [facility] 10^6/ -5.0 Hospital mm^3 3 Laboratory & 10^6 Pathology: 90 /mm^ [address] ? ? WB Low Hgb 10.7 12.0 [place] g/dL -15. Hospital 5 Laboratory & g/dL Pathology: [facility] ? ? WB Normal Hct 36 % 36-4 [facility] [place] 6 % Hospital Laboratory & Pathology: [address] [place] [address] ? ? WB Normal Mcv 94.9 81.0 [place] fL -99. Hospital 0 fL Laboratory & Pathology: [address] [place] [address] ? ? WB Low Mch 28.6 33.0 [place] pg -36. Hospital 0 pg Laboratory & Pathology: [address] [place] [address] ? ? WB Low Mchc 30 33-3 [place] g/dL 6 Hospital g/dL Laboratory & Pathology: [address] [place] [address] ? ? WB Normal Rdw 14.7 11.6 [place] % -14. Hospital 8 % Laboratory & Pathology: [address] [place] [address] ? ? WB Normal Platelets 165 150- [place] 10^3/ 400 Hospital mm^3 10^3 Laboratory & /mm^ Pathology: 90 3 [facility] ? ? WB Normal Ne# 3.07 1.20 [facility] 10^3/ -6.7 Hospital mm^3 0 Laboratory & 10^3 Pathology: 90 /mm^ [address] ? ? WB Low Ly# 1.13 1.20 [facility] 10^3/ -3.4 Hospital mm^3 0 Laboratory & 10^3 Pathology: 90 /mm^ [address] ? ? WB Normal Mo# 0.49 0.11 [facility] 10^3/ -0.7 Hospital mm^3 0 Laboratory & 10^3 Pathology: 90 /mm^ [address] ? ? WB Normal Eo# 0.07 0.00 [facility] 10^3/ -0.7 Hospital mm^3 0 Laboratory & 10^3 Pathology: 90 /mm^ [address] ? ? WB Normal Ba# 0.02 0.00 [facility] [place] 10^3/ -0.2 Hospital mm^3 0 Laboratory & 10^3 Pathology: 90 /mm^ [address] ? ? WB Normal Neut% 64 % 40-7 [place] per 4 % Hospital 100 per Laboratory & WBC 100 Pathology: 90 WBC [facility] ? ? WB Normal Ly% 24 % 19-4 [place] per 8 % Hospital 100 per Laboratory & WBC 100 Pathology: 90 WBC [facility] ? ? WB High Mo% 10.3 3.0- [facility] [place] % per 10.0 Hospital 100 % Laboratory & WBC per Pathology: 90 100 [facility] ? ? WB Normal Eo% 1.5 % 1.0- [place] per 7.0 Hospital 100 % Laboratory & WBC per Pathology: 90 100 [facility] ? ? WB Normal Ba% 0.4 % 0.0- [place] per 2.0 Hospital 100 % Laboratory & WBC per Pathology: 90 100 [facility] 07/15/2017 Carcinoembryonic ? No ? ? ? [facility] Ag, Quant, Serum observation [place] or Plasma recorded. [facility]: [address] [facility] , [place] Past Encounters 07/08/2021 Cirrhosis of Liver Juani Hi MD: [address] [place] [phone], Ph. 11/28/2020 Cirrhosis of Liver Juani Hi MD: [address] [place] [phone], Ph. 08/13/2020 Cirrhosis of Liver Juani Hi MD: [address] [place] [phone], Ph. 06/27/2020 Hepatomegaly; Gastrointestinal Hemorrhag e Juani Hi MD: [address] [place] [phone], Ph. Social History Tobacco Smoking Status Never [...]
[2021-11-27 21:35] LABS: Ionized Calcium 1.06 mmol/L (1.14-1.35)
[2021-11-28 09:52] LABS: Parathyroid Hormone,Intact 21 pg/mL (19-88)
== END 2021-11-27 21:22 | disposition home or self-care (01) ==
LOC: NCHCN 21:21
PROVIDERS: PCP Family Medicine; Visit Provider Family Medicine
DX: E11.9 Type 2 diabetes mellitus without complications (principal); E55.9 Vitamin D deficiency, unspecified; E53.8 Deficiency of other specified B group vitamins; E83.51 Hypocalcemia; D50.9 Iron deficiency anemia, unspecified
CPT/HCPCS: 80048; 82306; 82330; 82607; 82746; 83036; 83970; 84443

== ENCOUNTER → 2021-12-18 03:11 | Outpatient (CLI) | payer MEDICARE, MEDICAID, SELFPAY ==
--- NOTE | 2021-12-18 08:00 | DI.MAMMO_ITS ---
Exam(s) MAMMO SCREENING EXAM: MAMMO SCREENING CLINICAL HISTORY: SCREENING, Z12.39 TECHNIQUE: Bilateral full field digital CC and MLO mammographic images were obtained with 3D tomosyn thesis and utilizing computer aided detection (CAD). COMPARISON: Available for comparison. FINDINGS: Masses/Architectural Distortion: None seen. Microcalcifications: No suspicious pleomorphic-type are seen. Skin Thickening/Nipple Retraction: None. IMPRESSION: 1. No significant interval change with no specific features of malignancy noted. 2. Unless there is more urgent need, screening mammography is recommended, as per [place] [employer] guidelines. BI-RADS Category 1 - Negative Breast Density - Category B - Scattered areas of fibroglandular density Breast density category C or D implies that the patient has dense breast tissue. Dense breast tissue is very common and is not abnormal but dense breast tissue can make it harder to find cancer on a ma mmogram. Also, dense breast tissue may increase their breast cancer risk. This information about the result of the mammogram report was provided to the patient to raise their awareness. Use this report when you speak with the patient about their risks for breast cancer, which includes their family hist ory. At that time, you may recommend for more screening tests (Ultrasound or MRI) as they might be us eful based on their risk. A negative radiographic report should not delay biopsy if a dominant or clinically suspicious mass is present. Up to ten percent of cancers are not identified on mammography. A negative report may reinforce clinical impression. Adenosis and dense breasts may obscure an underlying neoplasm. False positive reports average 6 to 10%. Patient will receive a letter notifying them of these results.
== END ==
PROVIDERS: PCP Family Medicine; Visit Provider Family Medicine
DX: Z12.31 Encounter for screening mammogram for malignant neoplasm of breast (principal)
CPT/HCPCS: 77063; 77067

== ENCOUNTER → 2022-01-28 02:43 | Outpatient (CLI) | payer MEDICARE, MEDICAID, SELFPAY ==
--- NOTE | 2022-01-28 08:30 | DI.US_ITS ---
Exam(s) US RENAL EXAM: US RENAL CLINICAL HISTORY: monitoring right hydro, N13.30 TECHNIQUE: Ultrasound performed using standard protocol. COMPARISON: CT CT RENAL COLIC WO from 05/21/2021 FINDINGS: Kidneys are normal in size and shape. There is no evidence of hydronephrosis, nephrolithiasis, or re nal mass by ultrasound criteria. Urinary bladder is unremarkable in appearance and empties well with voiding. Ureteral jets were nonv isualized. IMPRESSION: No evidence of urinary tract obstruction. DATA REPOSITORY:
== END ==
PROVIDERS: PCP Family Medicine; Visit Provider Nurse Practitioner Gerontology
DX: N13.30 Unspecified hydronephrosis (principal)
CPT/HCPCS: 76770

== ENCOUNTER 2022-03-04 13:23 | Outpatient (REF) | payer MEDICARE, MEDICAID, SELFPAY ==
[2022-03-04 20:22] LABS: INR 1.4 (0.9-1.1)
[2022-03-04 20:23] LABS: HCT 39.8 % (36.0-46.0); HGB 13.7 g/dL (11.2-15.7); MCH 34.6 pg (27.0-33.0); MCHC 34.4 % (32.0-36.0); MCV 101 fL (80-95); MPV 11.2 fL (8.0-11.0); Platelet Count 100 10^3/uL (130-400); RBC 3.96 10^6/uL (3.93-5.22); RDW 13.2 % (11.7-14.6); RDW-SD 49.3 fL; WBC 4.79 10^3/uL (4.4-10.8)
[2022-03-04 20:30] LABS: ALT 25 U/L (14-59); AST 51 U/L (15-37); Alkaline Phosphatase 150 U/L (46-116); Anion Gap 6.4 mmol/L (3-11); BUN 17 mg/dL (7-18); Bilirubin, Total 11.3 mg/dL (0.2-1.0); CO2 24.6 mmol/L (21.0-32.0); CREATININE 0.6 mg/dL (0.55-1.02); Calcium 8.8 mg/dL (8.5-10.1); Chloride 102 mmol/L (98-107); Estimated GFR 105.28 (mL/min/1.73m2); Glucose 206 mg/dL (74-106); Sodium 133 mmol/L (136-145); Total Protein 6.6 g/dL (6.4-8.2)
[2022-03-06 10:36] LABS: AFP Tumor Marker 9.7 ng/mL (<8.1)
== END 2022-03-04 13:24 | disposition home or self-care (01) ==
LOC: NCHCN 13:23
PROVIDERS: PCP Family Medicine; Visit Provider Family Medicine
DX: K74.69 Other cirrhosis of liver (principal); D75.89 Other specified diseases of blood and blood-forming organs; R79.1 Abnormal coagulation profile
CPT/HCPCS: 80053; 85027; 82105; 85610

== ENCOUNTER 2022-03-11 01:39 | Outpatient (CLI) | payer MEDICARE, MEDICAID, SELFPAY ==
--- NOTE | 2022-03-11 07:00 | DI.US_ITS ---
Exam(s) US ABDOMEN EXAM: US ABDOMEN CLINICAL HISTORY: NONALCOHOLIC CIRRHOSIS, K74.69, S/P TIPS, Z95.828 TECHNIQUE: Ultrasound of complete upper abdomen performed using standard protocol. COMPARISON: CT CT RENAL COLIC WO from 05/21/2021 US US RENAL from 01/28/2022 FINDINGS: There is no ascites evident. LIVER: Liver size is upper normal. No discrete focal hepatic lesions identified. GALLBLADDER/BILIARY: There are no gallstones. No gallbladder wall edema nor pericholecystic fluid. The common hepatic duct isnot dilated, measuring 6mm at the level of edelmira hepatis. PANCREAS: There is no evidence of pancreatic mass nor dilatation of the pancreatic duct. SPLEEN: The spleen is enlarged, measuring 16-17 cm. No distinct splenic masses identified. KIDNEYS:Kidneys exhibit normal size with no evidence of solid mass, calculus, nor hydronephrosis. No cortical cysts evident. ABDOMINAL AORTA: There is no evidence of abdominal aortic aneurysm. IVC: Normal diameter where visualized. IMPRESSION: 1. No evidence of ascites in this patient who has had a prior TIPS procedure. 2. Splenomegaly again noted, as evident on the CT scan of April 2021. 3. No obvious gallstones. 4. No hydronephrosis. I note that this patient had mild right-sided hydronephrosis due to a calculu s at the right UVJ on the prior CT scan of 05/21/2021. DATA REPOSITORY:
== END 2022-03-11 01:59 ==
LOC: DI 01:39
PROVIDERS: PCP Family Medicine; Visit Provider Family Medicine
DX: R16.1 Splenomegaly, not elsewhere classified (principal)
CPT/HCPCS: 76700

== ENCOUNTER 2022-06-05 15:15 | Outpatient (REF) | payer MEDICARE, MEDICAID, SELFPAY ==
[2022-06-05 19:39] LABS: HCT 37.6 % (36.0-46.0); HGB 13.4 g/dL (11.2-15.7); MCHC 35.6 % (32.0-36.0); MCV 101 fL (80-95); MPV 11.8 fL (8.0-11.0); RBC 3.72 10^6/uL (3.93-5.22); RDW 14.3 % (11.7-14.6); RDW-SD 52.7 fL; WBC 4.53 10^3/uL (4.4-10.8)
[2022-06-05 19:42] LABS: Platelet Count 86 10^3/uL (130-400)
[2022-06-05 20:03] LABS: INR 1.4 (0.9-1.1); Prothrombin Time 14.4 sec (9.3-11.0)
[2022-06-05 20:06] LABS: ALT 23 U/L (14-59); AST 45 U/L (15-37); Albumin 2.5 g/dL (3.4-5.0); Alkaline Phosphatase 164 U/L (46-116); Anion Gap 4.9 mmol/L (3-11); BUN 10 mg/dL (7-18); Bilirubin, Total 8.2 mg/dL (0.2-1.0); CO2 27.1 mmol/L (21.0-32.0); Calcium 8.4 mg/dL (8.5-10.1); Chloride 103 mmol/L (98-107); Estimated GFR 66.12 (mL/min/1.73m2); Glucose 369 mg/dL (74-106); Magnesium 1.6 mg/dL (1.8-2.4); NT-proBNP 82 pg/mL (<300); Potassium 4.1 mmol/L (3.5-5.1); Sodium 135 mmol/L (136-145); Total Protein 6.4 g/dL (6.4-8.2)
[2022-06-08 09:12] LABS: AFP Tumor Marker 8.5 ng/mL (<8.1)
== END 2022-06-05 15:16 | disposition home or self-care (01) ==
LOC: NCHCN 15:15
PROVIDERS: PCP Family Medicine; Visit Provider Family Medicine
DX: K74.60 Unspecified cirrhosis of liver (principal); R97.8 Other abnormal tumor markers; R79.1 Abnormal coagulation profile; D75.89 Other specified diseases of blood and blood-forming organs; E83.51 Hypocalcemia; R25.2 Cramp and spasm; R60.0 Localized edema; R07.89 Other chest pain; R06.89 Other abnormalities of breathing
CPT/HCPCS: 80053; 85027; 82105; 83735; 83880; 85610

== ENCOUNTER 2022-06-23 01:22 | Outpatient (CLI) | payer MEDICARE, MEDICAID, SELFPAY ==
--- NOTE | 2022-06-23 11:00 | DI.NM_ITS ---
APPROVED REPORT Exam: Exercise Treadmill Patient Location: Out-Patient Room/Bed: Stress Nurse: Aimee Edward RN Ordering Provider:LEIA LAW, Contact Number: [phone] BMI: 34.32 Baseline Rhythm: Sinus Rhythm Indications: Chest pain Medical History Medical History: Hepatic cirrhosis, TIPS procedure, obesity, asthma, HADLEY, gerd, PTSD, depression/anxi ety, T2DM, anemia, ADHD Cardiac Medications: Metformin, magnesium chloride, levalbuterol tartrate, ferrous gluconate, albuter ol sulfate Allergies: Codeine, ibuprofen Cardiac Risk Factors: Diabetes, asthma, obesity, family hx Previous Cardiac Procedures: None Pretest Chest Pain Characteristics: None Exercise History: Sedentary Physical Disabilities: None Lung Sounds: Clear to auscultation, Clear to auscultation Heart Sounds: Regular Stress Test Details Test: Exercise stress testing was performed using a Jai protocol. Nuclear Acquisition: Rest Tc-99m/Stress Tc-99m 1 day Rest Isotope: Tc-99m Sestamibi. Dose: 11.0 Date: 06/23/2022 Injection Time: 1100 Stress Isotope: Tc-99m Sestamibi. Dose: 34.0 Date: 06/23/2022 Injection Time: 1325 HR Resting HR Supine: 84 bpm Max Heart Rate (APMHR): 164.307020 bpm Resting HR Standin bpm Target HR (85% APMHR): 139.343213 bpm Max HR Achieved: 156 bpm % of APMHR: 95.12 Recovery HR: 95 bpm HR response to stress: Normal HR response to stress BP Resting BP Supine: 120/84 mmHg Resting BP Standin/72 mmHg Max BP: 162/70 mmHg Recovery BP: 140/68 mmHg BP response to stress: Normal blood pressure response to stress. ECG Resting ECG: Sinus Rhythm Ectopy: None Stress ECG: Sinus Tachycardia ST Change: No significant ST segment changes noted Arrhythmia: Rare PVC Recovery ECG: Sinus Rhythm Recovery ST Change: No significant ST segment changes noted Recovery Arrhythmia: Occasional PACs, rare PVC Clinical Reason for Termination: Fatigue Stress Symptoms: General Fatigue Exercise duration: 4 min31 sec Highest Stage Reached: Stage 2: 2.5 mph at 12% grade. Exercise capacity: 6.44 METs Angina Score: None Dan Treadmill Score: 4.7 Rate Pressure Product: 08570 Stress ECG Conclusion 1. Resting electrocardiogram was within normal limits 2. Patient exercised on the Jai protocol and completed a workload of 6.44 METS 3. Normal heart rate and blood pressure response to exercise. The patient achieved 95% of predicted heart rate for age 4. There was no electrocardiographic evidence of myocardial ischemia 5. There were no significant dysrhythmias 6. See MPI report Dan Treadmill Score is 4.7 which is Moderate risk. Stress Test Summary STAGE Time (mins) Speed (mph) Grade (%) HR BP SpO2 SYMPTOMS METS Supine 84 120/84 Standing 90 128/72 95% 1 3 1.7 10 141 90% 4.5 2 6 2.5 12 156 90% 7 1 min recovery 136 162/70 96% 3 min recovery 112 150/54 97% 6 min recovery 95 140/68 97% MPI Conclusion Myocardial perfusion is normal. There is no ischemia or evidence of prior infarction EF 67%, normal wall motion Radiologist Interpretation Radiologist Interpretation by: Rob Velez MD Interpretation Date/Time: 06/25/2022 17:53:00
== END 2022-06-23 01:42 ==
LOC: DI 01:22
PROVIDERS: PCP Family Medicine; Visit Provider Family Medicine
DX: R07.9 Chest pain, unspecified (principal)
CPT/HCPCS: 78452; 93016; 93018; 93017

== ENCOUNTER 2022-08-09 06:20 | Emergency (ER) | payer MEDICARE, MEDICAID, SELFPAY ==
[2022-08-09 06:24] VITALS: BP 130/61; PULSE 89; RESP 18; TEMP 38.1; O2SAT 96
[2022-08-09 06:42] VITALS: TEMP 37.2
--- NOTE | 2022-08-09 07:00 | DI.RAD_ITS ---
Exam(s) XR KNEE LT 3V AP,LAT,TRISTAN EXAM: XR KNEE LT 3V AP,LAT,TRISTAN h CLINICAL HISTORY: 3 days worsening left knee pain. TECHNIQUE: 2D digital imaging was performed. COMPARISON: No exams were available for comparison FINDINGS: 3 views No evidence of acute fracture but there is a joint effusion evident. No joint space narrowing. No o steochondral defects. IMPRESSION: No significant osseous findings but joint effusion noted signifying internal derangement. Recommend follow-up MRI. DATA REPOSITORY: RADIATION DOSE DELIVERED:
--- NOTE | 2022-08-09 07:11 | ED.GENADUL_ITS ---
Discharge Plan Disposition Patient Disposition: Home Discharge Details Clinical Impression: Internal derangement of knee Primary Care Provider: Deandra Hutchins ED Provider: Bryant Pack Home Meds and New Rx's Prescriptions: New sulfamethoxazole-trimethoprim [Bactrim DS] 800-160 mg tablet 1 tab PO BID Qty: 14 0RF Continued calcium carbonate-vitamin D3 1,000 mg(2,500 mg)-800 unit tablet PO BID magnesium chloride 64 mg Tablet Extended Release 113 mg PO DAILY ferrous gluconate 256 mg (28 mg iron) tablet 256 mg PO BID albuterol sulfate [ProAir HFA] 90 mcg/actuation HFA aerosol inhaler 2 puff inhalation .Q4-6HR PRN levalbuterol tartrate [Xopenex HFA] 45 mcg/actuation HFA aerosol inhaler 2 inh inhalation .Q4-6HR metformin 500 mg tablet 1,000 mg PO BID acetaminophen [Mapap Extra Strength] 500 MG tablet 1 - 2 tab PO PRN PRN ondansetron 4 mg tablet,disintegrating 4 mg PO Q8H PRN (Reason: nausea and vomiting) Qty: 30 0RF methylphenidate HCl [Ritalin] 20 MG tablet 20 mg PO TID Discharge Instructions Instructions: Swollen Knee Joint (ED), Dysuria (ED), Knee Pain (ED) Medical Decision Making Patient with 4 days of left lower extremity left knee pain. No appreciable effusion no secondary signs of septic joint however this patient would be immunocompromised with her liver disease. Could be musculoskeletal purely in origin. Could be intra-articular gout crystals. Ligamentous injury is possible. Concern with doing the joint aspiration in a patient with liver disease would be to cause a hemarthrosis in somebody with platelet dysfunction. We will hold off on joint tap at this time. We will obtain basic labs and see if inflammatory markers are elevated. Obtain a plain film x-ray to see if there is any other obvious cause of the patient's pain. Will reassess after imaging but will have low threshold to go perform a joint aspiration if necessary or just initiate treatment with antibiotics. Differential Diagnosis Differential Diagnosis: Musculoskeletal pain/septic joint/knee arthritis/gout Medical Records Medical records reviewed: Yes I reviewed the patient's medical records. Lab Data Lab results reviewed: Yes I reviewed the patient's lab results. HPI General Date/Time Provider Initiated Documentation: 06/18/23 07:03 . HPI Narrative: Patient with a history of idiopathic liver disease distant history of colon cancer status post colon resection with colostomy in place. Now presents with 3 days of worsening left leg pain mostly focused in the knee. Pain is just proximal to the knee. Hurts more when she bends her knee and sends pain radiating up the leg. No pain distal to the knee. No swelling of the lower extremity. No previous knee injury to this site. Denies recent trauma. States that the pain has been constant and worsening. Denies history of excessive bleeding or bruising anywhere else in the body. Denies fever or chills. No significant rash or redness over the area with pain. She can walk but with great. Related Data Home Medications Medication Instructions Recorded Confirmed acetaminophen 500 mg tablet (Mapap 1 - 2 tab PO PRN PRN 08/19/15 06/25/21 Extra Strength) methylphenidate HCl 20 mg tablet 20 mg PO TID 05/27/17 06/25/21 (Ritalin) albuterol sulfate 90 mcg/actuation 2 puff inhalation .Q4-6HR PRN 01/22/20 06/25/21 aerosol inhaler (ProAir HFA) ferrous gluconate 256 mg (28 mg 256 mg PO BID 01/22/20 06/25/21 iron) tablet levalbuterol tartrate 45 2 inh inhalation .Q4-6HR 01/22/20 06/25/21 mcg/actuation aerosol inhaler (Xopenex HFA) calcium carbonate 1,000 mg-vitamin tab PO BID 04/15/20 06/25/21 D3 20 mcg (800 unit) tablet magnesium chloride 64 mg 113 mg PO DAILY 06/06/20 06/25/21 tablet,extended release metformin 500 mg tablet 1,000 mg PO BID 06/17/20 06/25/21 ondansetron 4 mg disintegrating 4 mg PO Q8H PRN nausea and 05/21/21 06/25/21 tablet vomiting #30 tabs sulfamethoxazole 800 1 tab PO BID #14 tabs 08/09/22 mg-trimethoprim 160 mg tablet (Bactrim DS) Previous Rx's Medication Instructions Recorded ondansetron 4 mg disintegrating 4 mg PO Q8H PRN nausea and 05/21/21 tablet vomiting #30 tabs sulfamethoxazole 800 1 tab PO BID #14 tabs 08/09/22 mg-trimethoprim 160 mg tablet (Bactrim DS) Allergies Allergy/AdvReac Type Severity Reaction Status Date / Time codeine AdvReac Unknown unable to Unverified 06/25/21 12:54 take related to colon removal ibuprofen AdvReac Unknown unable to Unverified 06/25/21 12:54 take related to colon removal General Stated Complaint: Orthopedic WILL: 3 Review of Systems Narrative: CONST: Negative for fever, body aches and chills. HENT: Negative for neck pain/stiffness, headache, congestion, sore throat, swelling. EYES: Negative for discharge/pain or vision changes. RESP: Negative for cough/hemoptysis and shortness of breath. CV: Negative chest pain, difficulty breathing, palpitations. ABD: Negative pain, nausea, vomiting. : Negative increase frequency, dysuria, blood in urine or stool. MUSC: SKIN: Negative rash, lesions/sores. NEURO: Negative headache, dizziness, weakness. PFSH All Active Problems (Updated 08/09/22 @ 08:28 by Bryant Pack MD) Internal derangement of knee (Acute) ADHD (Acute) Crohn's disease in remission (Acute) Anemia of chronic disease (Acute) Acute exacerbation of chronic low back pain (Acute) Back pain (Acute) Stoma bleed (Acute) Chest pain (Acute) H/O malignant neoplasm of colon (Acute) DVT prophylaxis (Acute) Discharge planning issues (Acute) Anemia, blood loss (Acute) GI bleed (Chronic) Medical History Adjustment disorder Chronic low back pain Colon cancer Depression with anxiety Diabetes mellitus type 2 in obese GERD (gastroesophageal reflux disease) Hyposmia HADLEY (obstructive sleep apnea) PTSD (post-traumatic stress disorder) Vitamin B12 deficiency Vitamin D deficiency Surgical History H/O ileostomy History of endometrial ablation S/P colectomy S/P D&C (status post dilation and curettage) S/P LEEP Family History Mother , age 49 due to heart disease Diabetes Heart disease Hypertension Father Heart disease Social History Smoking/Tobacco Use Status: Never Smoking risk assessment performed?: Yes Alcohol Intake: never Drug use: Never Substance use type: does not use Household members: family Housing: house Number of Children: 5 number of grandchildren: 15 Pets and animals: Yes Pets and animals: dog(s) What type of physical activity do you participate in: none Seatbelt use: always Do you feel safe at home: Yes Do you feel safe in your relationship?: Yes Exam Narrative Exam Narrative: GENERAL APPEARANCE NAD, activity normal for age, jaundiced with scleral icterus EYES lids/conjunctiva normal. EARS/NOSE/THROAT Mucous membranes moist, nares normal, lips/teeth normal uvula midline without oral pharyngeal erythema, exudate or swelling No lymphangitis/lymphedema. HEAD/NECK normocephalic atraumatic, no facial trauma, neck is supple. RESPIRATORY respiratory effort normal, speaks in full sentences, no tripod position, no accessory muscle use. Lungs clear to auscultation without rhonchi, wheezes, rales CARDIAC Regular rate and rhythm, no edema. ABDOMINAL Soft, ND/NT. No evidence of fluid wave. No pulsatile masses on exam, rebound tenderness, Jimenez sign or pain over Mcburney's point. Right-sided colostomy bag in place MUSCLES/EXTREMITIES tenderness to palpation of the left lower extremity just proximal to the knee. No appreciable knee effusion. No erythema. No tenderness to palpation behind the knee. Pain on both active and passive flexion extension SKIN Warm, jaundiced and dry. No rashes, dermatoses, petechiae or lesions. NEUROLOGICAL Speech is clear and appropriate. Normal level of consciousness. Gait and coordination are normal. 5/5 strength in all extremities. PSYCH Normal mood and affect. Judgement/competence is appropriate Course Vital Signs Vital signs: Vital Signs Temperature 38.1 C H 08/09/22 06:24 Pulse 89 08/09/22 06:24 Respiratory Rate 18 08/09/22 06:24 Blood Pressure 130/61 08/09/22 06:24 Pulse Oximetry 96 08/09/22 06:24 Temperature 37.2 C 08/09/22 06:42 Temperature Source Oral 08/09/22 06:42 Pulse 89 08/09/22 06:24 Respiratory Rate 18 06/18/23 06:24 Respiratory Effort Normal 08/09/22 06:28 Blood Pressure 130/61 08/09/22 06:24 Blood Pressure Position Sitting 08/09/22 06:24 Pulse Oximetry 96 08/09/22 06:24 Oxygen Delivery Method Room Air 08/09/22 06:24 Oxygen Flow Rate 0 08/09/22 06:24 Pain Level 10 08/09/22 06:24
[2022-08-09 07:34] LABS: Absolute Basophil Count 0.05 10^3/uL (0.0-0.2); Absolute Eosinophil Count 0.01 10^3/uL (0.0-0.7); Absolute Lymphocyte Count 0.58 10^3/uL (1.2-3.4); Absolute Monocyte Count 0.73 10^3/uL (0.1-0.8); Absolute Neutrophil Count 5.56 10^3/uL (1.2-6.7); Basophils % 0.7; Eosinophils % 0.1; HCT 33.5 % (36.0-46.0); HGB 11.9 g/dL (11.2-15.7); Immature Grans % 4.1; MCH 37.3 pg (27.0-33.0); MCHC 35.5 % (32.0-36.0); MCV 105 fL (80-95); MPV 10.1 fL (8.0-11.0); Monocytes % 10.1; RBC 3.19 10^6/uL (3.93-5.22); RDW 13.6 % (11.7-14.6); RDW-SD 52.7 fL; WBC 7.23 10^3/uL (4.4-10.8)
[2022-08-09 07:37] LABS: ESR 32 mm/hr (0-30)
[2022-08-09 07:41] LABS: INR 1.4 (0.9-1.1); Prothrombin Time 13.9 sec (9.3-11.0)
[2022-08-09 07:45] LABS: ALT 10 U/L (14-59); AST 19 U/L (15-37); Albumin 2.1 g/dL (3.4-5.0); Alkaline Phosphatase 141 U/L (46-116); Anion Gap 10.6 mmol/L (3-11); BUN 17 mg/dL (7-18); C-Reactive Protein 3.88 mg/dL (0.0-0.3); CO2 21.4 mmol/L (21.0-32.0); CREATININE 1.1 mg/dL (0.55-1.02); Calcium 8.3 mg/dL (8.5-10.1); Chloride 97 mmol/L (98-107); Estimated GFR 58.97 (mL/min/1.73m2); Glucose 453 mg/dL (74-106); Lipase 32 U/L (16-77); Potassium 4.9 mmol/L (3.5-5.1); Sodium 129 mmol/L (136-145); Total Protein 6.2 g/dL (6.4-8.2)
[2022-08-09 07:57] LABS: Diff Comment Diff Reviewed; Platelet Count 95 10^3/uL (130-400); RBC Morphology Normal
[2022-08-09 08:48] VITALS: BP 133/50; PULSE 85; O2SAT 97
--- NOTE | 2022-08-09 09:25 | DI.VRAD_ITS ---
PROCEDURE INFORMATION: Exam: XR Left Knee Exam date and time: 08/09/2022 8:00 AM Age: 56 years old Clinical indication: Other: 3 days worsening left knee pain; Patient HX: PT slipped 3 days ago TECHNIQUE: Imaging protocol: Radiologic exam of the left knee. Views: 3 views. COMPARISON: No relevant prior studies available. FINDINGS: Bones/joints: Mild joint space narrowing and osteophyte formation in the patellofemoral joint consistent with degenerative changes. Mild suprapatellar joint effusion. There is no evidence of acute fracture.There is no evidence of malalignment or dislocation. Soft tissues: Normal. IMPRESSION: 1. Mild joint space narrowing and osteophyte formation in the patellofemoral joint consistent with degenerative changes. 2. There is no evidence of acute fracture.There is no evidence of malalignment or dislocation. 3. Mild suprapatellar joint effusion Dictated and Authenticated by: Christopher Wynne MD. Ordering:RAHEEL Hurtado MD
[2022-08-10 10:17] LABS: Lyme Ab w Rflx to Lyme Confirm Negative (Negative)
--- NOTE | 2022-08-10 10:50 | NUR.NOTE ---
Nursing Note:Patient had a question about where her prescription was
[2022-08-11 16:50] LABS: Anaplasma phagocytophilum Negative (Negative); B. miyamotoi PCR Negative (Negative); Babesia divergens/MO-1 Negative (Negative); Babesia duncani Negative (Negative); Babesia microti Negative (Negative); Ehrlichia chaffeensis Negative (Negative); Ehrlichia ewingii/canis Negative (Negative); Ehrlichia muris eauclairensis Negative (Negative)
== END 2022-08-09 08:57 | disposition home or self-care (01) ==
PROVIDERS: Emergency Provider Emergency Medicine; PCP Family Medicine
DX: M23.92 Unspecified internal derangement of left knee (principal)
CPT/HCPCS: 36415; 73562; 80053; 83690; 85652; 87798; 99283; 85025; 85610; 86140; 86618; 87070; 87205; 89051; 89060; 99284

== ENCOUNTER 2022-08-22 21:18 | Inpatient (IN) | payer MEDICARE, MEDICAID, SELFPAY ==
[2022-08-22 21:27] VITALS: BP 137/76; PULSE 96; RESP 18; TEMP 36.5; O2SAT 93
--- NOTE | 2022-08-22 22:50 | ED.GENADUL_ITS ---
Discharge Plan Disposition Patient Disposition: Admit to [facility] Discharge Details Chief Complaint: Orthopedic Clinical Impression: Hepatorenal syndrome, ELVIA (acute kidney injury), Acute dehydration Primary Care Provider: Deandra Hutchins ED Provider: Trevon Lima Home Meds and New Rx's Prescriptions: No Action calcium carbonate-vitamin D3 1,000 mg(2,500 mg)-800 unit tablet PO BID magnesium chloride 64 mg Tablet Extended Release 113 mg PO DAILY ferrous gluconate 256 mg (28 mg iron) tablet 256 mg PO BID albuterol sulfate [ProAir HFA] 90 mcg/actuation HFA aerosol inhaler 2 puff inhalation .Q4-6HR PRN levalbuterol tartrate [Xopenex HFA] 45 mcg/actuation HFA aerosol inhaler 2 inh inhalation .Q4-6HR metformin 500 mg tablet 1,000 mg PO BID acetaminophen [Mapap Extra Strength] 500 MG tablet 1 - 2 tab PO PRN PRN ondansetron 4 mg tablet,disintegrating 4 mg PO Q8H PRN (Reason: nausea and vomiting) Qty: 30 0RF furosemide 20 mg Tablet 20 mg PO DAILY spironolactone 50 mg Tablet 50 mg PO DAILY methylphenidate HCl [Ritalin] 20 MG tablet 20 mg PO TID sulfamethoxazole-trimethoprim [Bactrim DS] 800-160 mg tablet 1 tab PO BID Qty: 14 0RF Medical Decision Making 56-year-old female history of liver disease presents with left knee pain and swelling over the past several weeks, has moderate joint effusion to the left knee, range of motion intact, no joint laxity, soft compartments warm well perfused sensate extremity. Counseled patient that given her level of discomfort and swollen joint without definitive trauma and arthrocentesis would be indicated however patient is refusing as she states that she was told arthrocentesis could potentially kill her. We discussed my differential diagnosis at length including hemarthrosis from a traumatic source versus Lyme arthritis versus rheumatologic process versus arthritis versus less likely septic joint given chronicity of pain and swelling afebrile nontoxic state and range of motion. Will obtain basic labs tick panel trial of anti-inflammatory. Will encourage use of crutches if patient is having difficulty ambulating. 2: 56 likely component of hepatorenal syndrome and prerenal ELVIA. Patient did respond to fluid bolus insulin and calcium. No EKG changes hemodynamically stable. Will admit for controlled electrolyte correction. Likely component of pseudo hyponatremia corrected sodium of 126-127 HPI General Date/Time Provider Initiated Documentation: 08/22/22 22:31 . HPI Narrative: 56-year-old female history of liver failure, presents with several weeks of swollen painful left knee may have twisted her knee when sitting on the couch several weeks ago however does not remember a large traumatic event; endorses recent urgent care evaluation. Denies fevers chills nausea vomiting. Has been having issues ambulating due to discomfort Related Data Home Medications Medication Instructions Recorded Confirmed acetaminophen 500 mg tablet (Mapap 1 - 2 tab PO PRN PRN 08/19/15 08/23/22 Extra Strength) methylphenidate HCl 20 mg tablet 20 mg PO TID 05/27/17 08/23/22 (Ritalin) albuterol sulfate 90 mcg/actuation 2 puff inhalation .Q4-6HR PRN 01/22/20 08/23/22 aerosol inhaler (ProAir HFA) ferrous gluconate 256 mg (28 mg 256 mg PO BID 01/22/20 08/23/22 iron) tablet levalbuterol tartrate 45 2 inh inhalation .Q4-6HR 01/22/20 08/23/22 mcg/actuation aerosol inhaler (Xopenex HFA) calcium carbonate 1,000 mg-vitamin 1 tab PO BID 04/15/20 08/23/22 D3 20 mcg (800 unit) tablet magnesium chloride 64 mg 113 mg PO DAILY 06/06/20 08/23/22 tablet,extended release metformin 500 mg tablet 1,000 mg PO BID 06/17/20 08/23/22 ondansetron 4 mg disintegrating 4 mg PO Q8H PRN nausea and 05/21/21 08/23/22 tablet vomiting #30 tabs sulfamethoxazole 800 1 tab PO BID #14 tabs 08/09/22 08/23/22 mg-trimethoprim 160 mg tablet (Bactrim DS) furosemide 20 mg tablet 20 mg PO DAILY 08/22/22 08/23/22 spironolactone 50 mg tablet 50 mg PO DAILY 08/22/22 08/23/22 Previous Rx's Medication Instructions Recorded ondansetron 4 mg disintegrating 4 mg PO Q8H PRN nausea and 05/21/21 tablet vomiting #30 tabs sulfamethoxazole 800 1 tab PO BID #14 tabs 08/09/22 mg-trimethoprim 160 mg tablet (Bactrim DS) Allergies Allergy/AdvReac Type Severity Reaction Status Date / Time codeine AdvReac Unknown unable to Unverified 08/22/22 21:37 take related to colon removal ibuprofen AdvReac Unknown unable to Unverified 08/22/22 21:37 take related to colon removal General Stated Complaint: Orthopedic WILL: 3 Review of Systems Narrative: Review of Systems Constitutional: negative Eyes: negative ENT: negative Cardiovascular: negative Respiratory: negative Gastrointestinal: negative : negative Musculoskeletal: Knee pain Skin: negative Neurologic: negative Psych: negative PFSH All Active Problems (Updated 08/23/22 @ 02:59 by Trevon Lima MD) Internal derangement of knee (Acute) Hepatorenal syndrome (Acute) ELVIA (acute kidney injury) (Acute) Acute dehydration (Acute) ADHD (Acute) Crohn's disease in remission (Acute) Anemia of chronic disease (Acute) Acute exacerbation of chronic low back pain (Acute) Back pain (Acute) Stoma bleed (Acute) Chest pain (Acute) H/O malignant neoplasm of colon (Acute) DVT prophylaxis (Acute) Discharge planning issues (Acute) Anemia, blood loss (Acute) GI bleed (Chronic) Medical History Adjustment disorder Chronic low back pain Colon cancer Depression with anxiety Diabetes mellitus type 2 in obese GERD (gastroesophageal reflux disease) Hyposmia HADLEY (obstructive sleep apnea) PTSD (post-traumatic stress disorder) Vitamin B12 deficiency Vitamin D deficiency Surgical History H/O ileostomy History of endometrial ablation S/P colectomy S/P D&C (status post dilation and curettage) S/P LEEP Family History Mother , age 49 due to heart disease Diabetes Heart disease Hypertension Father Heart disease Social History Smoking/Tobacco Use Status: Never Smoking risk assessment performed?: Yes Alcohol Intake: never Drug use: Never Substance use type: does not use Household members: family Housing: house Number of Children: 5 number of grandchildren: 15 Pets and animals: Yes Pets and animals: dog(s) What type of physical activity do you participate in: none Seatbelt use: always Do you feel safe at home: Yes Do you feel safe in your relationship?: Yes Exam Narrative Exam Narrative: Physical Examination General: alert, awake, cooperative, resting comfortably, no acute distress Skin: no lesions, rashes or trauma appreciated; jaundice Neuro: AAOx3, normal speech, moving all extremities Extremities: Moderate left knee effusion, flexion and extension intact, warm well perfused extremity, sensate, no joint laxity Course Vital Signs Vital signs: Vital Signs Temperature 36.5 C 08/22/22 21:27 Pulse 96 H 08/22/22 21:27 Respiratory Rate 18 08/22/22 21:27 Blood Pressure 137/76 08/22/22 21:27 Pulse Oximetry 93 08/22/22 21:27 Temperature 36.5 C 08/22/22 21:27 Temperature Source Skin 08/22/22 21:27 Pulse 96 H 08/22/22 21:27 Respiratory Rate 18 08/22/22 21:27 Respiratory Effort Normal 08/22/22 21:32 Blood Pressure 137/76 08/22/22 21:27 Blood Pressure Position Supine 08/22/22 21:27 Pulse Oximetry 93 08/22/22 21:27 Oxygen Delivery Method Room Air 08/22/22 21:27 Oxygen Flow Rate 0 08/22/22 21:27
[2022-08-22 23:12] LABS: Abs Immature Grans 0.94 10^3/uL (0.0-0.06); Absolute Eosinophil Count 0.02 10^3/uL (0.0-0.7); Basophils % 0.5; Eosinophils % 0.1; HCT 31.9 % (36.0-46.0); Immature Grans % 5.4; Lymphocytes % 5.4; MCH 36.9 pg (27.0-33.0); MCHC 34.5 % (32.0-36.0); MCV 107 fL (80-95); MPV 9.7 fL (8.0-11.0); Monocytes % 8.5; Neutrophils % 80.1; Nucleated RBC 0.1 % (0.0-0.3); Platelet Count 133 10^3/uL (130-400); RBC 2.98 10^6/uL (3.93-5.22); RDW 14.6 % (11.7-14.6); RDW-SD 57.5 fL; WBC 17.55 10^3/uL (4.4-10.8)
[2022-08-22 23:14] LABS: Absolute Basophil Count 0.09 10^3/uL (0.0-0.2); Absolute Lymphocyte Count 0.95 10^3/uL (1.2-3.4); Absolute Monocyte Count 1.49 10^3/uL (0.1-0.8); Absolute Neutrophil Count 14.06 10^3/uL (1.2-6.7)
[2022-08-22] MEDS: Dexamethasone 10 MG/ML VIAL IVP (23:15)
[2022-08-22 23:17] LABS: Diff Comment Agrees w/ Instrument; Macrocytosis 1+
[2022-08-22 23:28] LABS: INR 1.6 (0.9-1.1); PTT Activated 32.3 sec (21.5-31.9); Prothrombin Time 16.1 sec (9.3-11.0)
--- NOTE | 2022-08-22 23:30 | RT.EKG_ITS ---
APPROVED REPORT Exam: Resting ECG Reason for Exam: hyperkalemia Patient Location: E HR:92 bpm ECG Measurements Heart Rate 92 AXIS VT 164 P 72 QRSd 99 QRS -6 QT 352 T 38 QTc 436 Conclusion Sinus rhythm...normal P axis, V-rate 60- 99 sinus rhythm, normal axis, normal intervals, non ischemic
[2022-08-22 23:31] LABS: ALT 12 U/L (14-59); AST 45 U/L (15-37); Albumin 1.9 g/dL (3.4-5.0); Alkaline Phosphatase 131 U/L (46-116); Anion Gap 6.9 mmol/L (3-11); BUN 43 mg/dL (7-18); Bilirubin, Total 17.5 mg/dL (0.2-1.0); CO2 23.1 mmol/L (21.0-32.0); CREATININE 1.5 mg/dL (0.55-1.02); Calcium 8.2 mg/dL (8.5-10.1); Chloride 90 mmol/L (98-107); Estimated GFR 40.65 (mL/min/1.73m2); Total Protein 7.6 g/dL (6.4-8.2)
[2022-08-22 23:32] LABS: Glucose 530 mg/dL (74-106)
[2022-08-22 23:33] LABS: Potassium 7.5 mmol/L (3.5-5.1); Sodium 120 mmol/L (136-145)
[2022-08-23] VITALS (74 sets, daily range): BP systolic 99–149; BP diastolic 36–109; PULSE 68–111; RESP 12–26; TEMP 36.9–37.4; O2SAT 92–99
[2022-08-23] MEDS: Normal Saline 250 ML 1000 ML IV
[2022-08-23] MEDS: Insulin REGULAR-Human 100 UNITS/ML UNIT 6 UNITS IV (00:20)
[2022-08-23] MEDS: Albuterol 2.5 MG/3 ML INH SOLN VIAL UPD (00:20)
[2022-08-23] MEDS: CALCIUM GLUCONATE in NaCl 1 GM/50 ML BAG IVPB (00:20)
[2022-08-23 02:49] LABS: Anion Gap 8.6 mmol/L (3-11); BUN 43 mg/dL (7-18); CO2 21.4 mmol/L (21.0-32.0); CREATININE 1.6 mg/dL (0.55-1.02); Calcium 8.4 mg/dL (8.5-10.1); Chloride 92 mmol/L (98-107); Estimated GFR 37.62 (mL/min/1.73m2); Glucose 439 mg/dL (74-106)
[2022-08-23 02:52] LABS: Potassium 6.2 mmol/L (3.5-5.1); Sodium 122 mmol/L (136-145)
[2022-08-23] MEDS: Normal Saline 500 ML 1000 ML IV (03:00)
--- NOTE | 2022-08-23 03:45 | W.PM.HP.N ---
Date of service: 08/23/22 Time of Service: 03:45 Assessment and Plan Assessment and plan (1) Knee effusion: Status: Acute Assessment and plan: Knee effusion. With patient declining tap it is not possible to know etiology. First concern for monoarticular arthritis would be for septic joint, though there is no fever or erythema and this appears to be a more or less subacute process, all making acute septic joint less likely. Still there remains a concern, and especially with an otherwise unaccounted for leukocytosis. I would at least obtain blood cultures, and ER has sent off a tick panel. Other issues: 1. Worsening liver failure. This is probably best deemed chronic with subacute decline. Would advise f/u with GI (sees Dr. Juani Hi at [place]). Is not encephalopathic. 2. Azotemia. Likely from poor PO. Will trend with gentle hydration 3. Hyperkalemia: Bactrim may be the culprit here. Regardless she is not exhibiting any EKG effects. Will give dose Kayexalate and trend, and place on Tely 4. Hyperglycemia (non-ketotic)):will trend with sliding scale insulin coverage and hydration 5. Hyponatremia: at least partly pseudohyponatremia (from glucose), is improving already with hydration and correction of glucose. Difficult exam so I don't know if she has ascites, so unclear if this is to be considered true or effective hypovolemia, but in any case will trend with gentle hydration. Reviewed ADs, requests Full Code History of Present Illness History of Present Illness Chief Complaint: weakness, knee pain Narrative: 56 female with h/o liver failure of unspecified etiology, s/p TIPS, DM, colon CA with ostomy in 1999 -- seen here 08/09 with left knee swelling w/o diagnosis. Was started on Bactrim empirically. Returns tonight with continued knee swelling and continued and progressive inability to ambulate due to knee pain, and subsequent poor PO intake. In ER findings of note for white count 17; Hct 31 and platelet 107 (both approx baseline); Na 120, K 7.5, BUN 43, Cr 1.6, glucose 530; TBili 17.5, INR 1.6; EKG remarkably normal, Patient declined knee aspiration. Given Calcium, Insulin for hyperkalemia; given Decadron 10 for knee. I was asked to evaluate for admission. Patient again refuses knee aspiration. States that aside from knee pain she is feeling more or less her usual self except for a degree of anorexia. No cough or cold symptoms. No CP or abdominal pain or changes in stool. No dysuria or frequency. Review of Systems Narrative: per HPI PFSH All Active Problems (Updated 08/23/22 @ 04:03 by Denys Ortiz MD) Knee effusion (Acute) Internal derangement of knee (Acute) Hepatorenal syndrome (Acute) ELVIA (acute kidney injury) (Acute) Acute dehydration (Acute) ADHD (Acute) Crohn's disease in remission (Acute) Anemia of chronic disease (Acute) Acute exacerbation of chronic low back pain (Acute) Back pain (Acute) Stoma bleed (Acute) Chest pain (Acute) H/O malignant neoplasm of colon (Acute) DVT prophylaxis (Acute) Discharge planning issues (Acute) Anemia, blood loss (Acute) GI bleed (Chronic) Medical History Adjustment disorder Chronic low back pain Colon cancer Depression with anxiety Diabetes mellitus type 2 in obese GERD (gastroesophageal reflux disease) Hyposmia HADLEY (obstructive sleep apnea) PTSD (post-traumatic stress disorder) Vitamin B12 deficiency Vitamin D deficiency Surgical History H/O ileostomy History of endometrial ablation S/P colectomy S/P D&C (status post dilation and curettage) S/P LEEP Family History Mother , age 49 due to heart disease Diabetes Heart disease Hypertension Father Heart disease Social History Smoking/Tobacco Use Status: Never Smoking risk assessment performed?: Yes Alcohol Intake: never Drug use: Never Substance use type: does not use Household members: family Housing: house Number of Children: 5 number of grandchildren: 15 Pets and animals: Yes Pets and animals: dog(s) What type of physical activity do you participate in: none Seatbelt use: always Do you feel safe at home: Yes Do you feel safe in your relationship?: Yes Meds Allergies and Home Medications Allergies Allergy/AdvReac Type Severity Reaction Status Date / Time codeine AdvReac Unknown unable to Unverified 07/01/23 21:37 take related to colon removal ibuprofen AdvReac Unknown unable to Unverified 08/22/22 21:37 take related to colon removal Home Medications Medication Instructions Recorded Confirmed Type acetaminophen 500 mg tablet (Mapap 1 - 2 tab PO PRN PRN 08/19/15 08/23/22 History Extra Strength) methylphenidate HCl 20 mg tablet 20 mg PO TID 05/27/17 08/23/22 History (Ritalin) albuterol sulfate 90 mcg/actuation 2 puff inhalation .Q4-6HR PRN 01/22/20 08/23/22 History aerosol inhaler (ProAir HFA) ferrous gluconate 256 mg (28 mg 256 mg PO BID 01/22/20 08/23/22 History iron) tablet levalbuterol tartrate 45 2 inh inhalation .Q4-6HR 01/22/20 08/23/22 History mcg/actuation aerosol inhaler (Xopenex HFA) calcium carbonate 1,000 mg-vitamin 1 tab PO BID 04/15/20 08/23/22 History D3 20 mcg (800 unit) tablet magnesium chloride 64 mg 113 mg PO DAILY 06/06/20 08/23/22 History tablet,extended release metformin 500 mg tablet 1,000 mg PO BID 06/17/20 08/23/22 History ondansetron 4 mg disintegrating 4 mg PO Q8H PRN nausea and 05/21/21 08/23/22 Rx tablet vomiting #30 tabs sulfamethoxazole 800 1 tab PO BID #14 tabs 08/09/22 08/23/22 Rx mg-trimethoprim 160 mg tablet (Bactrim DS) furosemide 20 mg tablet 20 mg PO DAILY 08/22/22 08/23/22 History spironolactone 50 mg tablet 50 mg PO DAILY 08/22/22 08/23/22 History Exam Narrative Exam Narrative: 137/76, 96, 36.5, 22, 94% RA. HEENT jaundiced; neck supple; lungs clear to anterior exam; heart RRR; abdomen soft and NT, ostomy patent extremities left knee with mild-moderaste effusion, slightly warm, no erythema, painful passive ROM; neuro Ox3, lucid, no asterixis, moves all 4s Results Labs 08/22/22 23:05 08/23/22 02:30 Labs: Laboratory Results - last 24 hr 08/22/22 08/22/22 08/22/22 23:05 23:05 23:05 WBC 17.55 H RBC 2.98 L Hgb 11.0 L Hct 31.9 L MCV 107 H MCH 36.9 H MCHC 34.5 RDW 14.6 Plt Count 133 MPV 9.7 Immature Gran % 5.4 Neutrophils % 80.1 Lymphocytes % 5.4 Monocytes % 8.5 Eosinophils % 0.1 Basophils % 0.5 Nucleated RBC % 0.1 Absolute Neutrophils 14.06 H Absolute Lymphocytes 0.95 L Absolute Monocytes 1.49 H Absolute Eosinophils 0.02 Absolute Basophils 0.09 RBC Morphology See Below Macrocytosis 1+ PT 16.1 H INR 1.6 H APTT 32.3 H Sodium 120 L* Potassium 7.5 H* Chloride 90 L Carbon Dioxide 23.1 Anion Gap 6.9 BUN 43 H Creatinine 1.5 H Est GFR (CKD-EPI 2020) 40.65 Glucose 530 H* Calcium 8.2 L Total Bilirubin 17.5 H AST 45 H ALT 12 L Alkaline Phosphatase 131 H Total Protein 7.6 Albumin 1.9 L 08/23/22 02:30 WBC RBC Hgb Hct MCV MCH MCHC RDW Plt Count MPV Immature Gran % Neutrophils % Lymphocytes % Monocytes % Eosinophils % Basophils % Nucleated RBC % Absolute Neutrophils Absolute Lymphocytes Absolute Monocytes Absolute Eosinophils Absolute Basophils RBC Morphology Macrocytosis PT INR APTT Sodium 122 L* Potassium 6.2 H* Chloride 92 L Carbon Dioxide 21.4 Anion Gap 8.6 BUN 43 H Creatinine 1.6 H Est GFR (CKD-EPI 2020) 37.62 Glucose 439 H Calcium 8.4 L Total Bilirubin AST ALT Alkaline Phosphatase Total Protein Albumin Last Vital Signs Temp 36.5 C 08/22/22 21:27 Pulse 96 H 08/22/22 21:27 Resp 22 08/23/22 03:20 BP 137/76 08/22/22 21:27 Pulse Ox 94 08/23/22 03:20 Time Spent Time spent with Patient: >75 minutes Time was spent: preparing to see the patient(eg.review tests), obtaining and/or reviewing separately otained hiistory, ordering medications,tests, procedures, referring, communicating with other health healthcare applications analyst and indepentently interpreting results
[2022-08-23] MEDS: Sodium Zirconium Cyclosilicate 10 GM PKT PO (05:00)
[2022-08-23] MEDS: Insulin Aspart 300 UNITS/3 ML PEN SC (05:00)
[2022-08-23] MEDS: Normal Saline 1,000 ML 100 ML IV (05:30)
[2022-08-23 06:32] LABS: Bilirubin Small (Negative); Blood Moderate (Negative); Clarity Clear (Clear); Glucose >=1000 mg/dL (Negative); Ketones Negative (Negative); Leukocyte Esterase Trace (Negative); Nitrite Negative (Negative); Urobilinogen 0.2 mg/dL (Up to 0.2); pH 5.5 (5-8)
[2022-08-23 06:33] LABS: Bacteria Rare HPF (Negative); C & S Indicated? Yes; Casts Negative LPF (Negative); Crystals Negative HPF (Negative); Epithelial Cells Few HPF (Negative); Mucus Negative (Negative); RBC 0-2 HPF (0-2)
[2022-08-23 07:45] LABS: HCT 27.6 % (36.0-46.0); HGB 9.5 g/dL (11.2-15.7); MCH 38.5 pg (27.0-33.0); MCHC 34.4 % (32.0-36.0); MPV 10.4 fL (8.0-11.0); RDW 14.8 % (11.7-14.6); RDW-SD 61.1 fL
[2022-08-23 07:58] LABS: Anion Gap 13.5 mmol/L (3-11); BUN 41 mg/dL (7-18); CO2 15.5 mmol/L (21.0-32.0); CREATININE 1.5 mg/dL (0.55-1.02); Calcium 7.9 mg/dL (8.5-10.1); Chloride 93 mmol/L (98-107); Estimated GFR 40.65 (mL/min/1.73m2)
[2022-08-23 08:01] LABS: Glucose 567 mg/dL (74-106)
[2022-08-23 08:02] LABS: Potassium 6.1 mmol/L (3.5-5.1); Sodium 122 mmol/L (136-145)
[2022-08-23 08:11] LABS: BE (Venous) -5 mmol/L (-2-3); HCO3 (Venous) 19 mmol/L (23-28); pCO2 (Venous) 30 mmHg (41-51); pH (Venous) 7.42 (7.31-7.41); pO2 (Venous) 102 mmHg
[2022-08-23] MEDS: INSULIN REGULAR IN 0.9 % NACL 100 UNIT/100 ML BAG IV (08:15)
[2022-08-23 08:21] LABS: TCO2 (Venous) > 99 mmol/L (24-29)
[2022-08-23 08:22] LABS: Lactate 4.9 mmol/L (0.6-1.4)
[2022-08-23 08:28] LABS: C-Reactive Protein 7.86 mg/dL (0.0-0.3); PHOSPHORUS 4.2 mg/dL (2.6-4.7)
--- NOTE | 2022-08-23 08:31 | W.PM.PROGNOT ---
Date of Service Date of service: 08/23/22 Time of Service: 08:31 Assessment and Plan Assessment and plan (1) Monoarticular arthritis: Status: Deleted Assessment and plan: likely septic arthritis; need arthrocentesis, for gram stain, crystal analysis and cultures; already had blood and urine cultures sent, so I will start her empirically on vancomycin and cefepime. I did contact Dr. Soliz who will be in this morning to perform arthrocentesis. Case discussed with Dr. Soliz. Patient was also reviewed on signout from Dr. Ortiz Critical care time spent interviewing and examining the patient, reviewing studies, discussing case with patient's nurse and consulting physicians was 90 minutes (2) Left knee pain: Status: Deleted Assessment and plan: NSAID contraindicated d/t her ELVIA and liver disease, APAP also relative contraindication d/t her liver disease, although probably could use in small amounts, (3) ELVIA (acute kidney injury): Status: Acute Assessment and plan: likely prerenal azotemia from dehydration and sepsis; continue iv fluids, currently on NS d/t her hyponatremia and hyperkalemia (4) Anemia of chronic disease: Status: Acute (5) Hyperbilirubinemia: Status: Acute (6) Cirrhosis of liver: Status: Acute (7) DVT prophylaxis: Status: Acute Assessment and plan: SCD (8) Discharge planning issues: Status: Acute Subjective Subjective Interval history since last seen: Janice is 56 yr old female diabetic type II on metformin (controlled, last HbA1C 5.6%), remote s/p colostomy for colorectal cancer (followed by Dr. Segundo Dyson), chronic liver disease (?etiology, she denies viral hepatitis, she is followed by her PCP, Deandra Hutchins and Juani Hi, hepatology/GI from [facility], whom she has not seen in the last year, next follow up in September), patient is s/p TIPSS, procedure. For 2 weeks she has had left knee swelling and pain. She was treated in the ED 08/09/22 w/ Rx for bactrim DS for presumptive infection but no arthrocentesis was performed d/t concern for causing hemarthrosis secondary to her platelet dyfunction from her liver disease even though xray of knee demonstrated knee effusion. When she did not improve she went to [facility] urgent care center at the beginning of last week. She was made referral for MRI of her knee, orthopedic referral and given a walker but not prescribed any medications and no labs. Since that time she has been nauseated, not eating well, complaining of chills but no rigors. Evaluation last night included labs CBC, UA, CMP but no imaging. CMP demonstrated ELVIA ( BUN 43, creatinine 1.5, baseline 10 and 1.0), glucose 530, but AG 6.9, K 7.5 Na 120; total bili 17.5, AST 45, ALT 12, alk phos 131 (baseline TBili 8.2, AST 45, ALT 23, ALK PHOS 164). CBC WBC 17,000 w/ left shift, anemia (Hb 11 gm, baseline 13), UA no ketones, protein or nitrites, only trace bacteria trace leukocyte esterase, 10 to 20 WBC. Urine and blood cultures were obtained. Although septic arthritis was considered no arthrocentesis was obtained as patient expressed concern that such procedure could lead to systemic infection and she could from the procedure. When I asked her about this she says she was told this when she was evaluated in the ED on 08/09. No antibiotics were started last night and patient was given dexamethasone from the ED. She was admitted for treatment of dehydration, ELVIA, and heptorenal syndrome was suspected. She was put on glucose checks q3hr, not put on sliding scale or insulin drip. This morning she has elevated blood lactate 4.9 and her AG is going up to 13.5, K 6.1, Na 122 (corrects to 130 based on glucose levels), glucose now 567, despite given 10 units insulin.CRP 7.86, procalcitonin 0.7. I am advising patient to get arthrocentesis and I am starting her on empiric antibiotics w/ vancomycin and cefepime. Exam Narrative Exam Narrative: Obese white female who is obviously jaundiced and icteric. She is alert and oriented. Lungs are clear to auscultation Heart is regular rate and rhythm without audible murmur rub or gallop Abdomen is soft and nontender she has a intact colostomy in the right lower quadrant Extremities: left knee is obviously swollen and tender to flex and extend, there is no redness to the skin (skin jaundiced), but left knee is warmer compared to right knee Objective Last Vital Signs Temp 37 C 08/23/22 06:25 Pulse 96 H 08/23/22 06:01 Resp 18 08/23/22 06:20 BP 123/39 L 08/23/22 06:01 Pulse Ox 99 08/23/22 06:25 Laboratory Results - last 24 hr 08/22/22 08/22/22 08/22/22 23:05 23:05 23:05 WBC 17.55 H RBC 2.98 L Hgb 11.0 L Hct 31.9 L MCV 107 H MCH 36.9 H MCHC 34.5 RDW 14.6 Plt Count 133 MPV 9.7 Immature Gran % 5.4 Neutrophils % 80.1 Lymphocytes % 5.4 Monocytes % 8.5 Eosinophils % 0.1 Basophils % 0.5 Nucleated RBC % 0.1 Absolute Neutrophils 14.06 H Absolute Lymphocytes 0.95 L Absolute Monocytes 1.49 H Absolute Eosinophils 0.02 Absolute Basophils 0.09 RBC Morphology See Below Macrocytosis 1+ PT 16.1 H INR 1.6 H APTT 32.3 H VBG pH VBG pCO2 VBG pO2 VBG HCO3 VBG Total CO2 VBG Base Excess VBG Lactate Sodium 120 L* Potassium 7.5 H* Chloride 90 L Carbon Dioxide 23.1 Anion Gap 6.9 BUN 43 H Creatinine 1.5 H Est GFR (CKD-EPI 2020) 40.65 Glucose 530 H* Calcium 8.2 L Total Bilirubin 17.5 H AST 45 H ALT 12 L Alkaline Phosphatase 131 H Total Protein 7.6 Albumin 1.9 L Urine Color Urine Clarity Urine pH Ur Specific [place] Urine Protein Urine Ketones Urine Blood Urine Nitrite Urine Bilirubin Urine Urobilinogen Ur Leukocyte Esterase Urine RBC Urine WBC Ur Epithelial Cells Urine Crystals Urine Bacteria Urine Casts Urine Mucus Ur Culture Indicated? Urine Glucose 08/23/22 08/23/22 08/23/22 02:30 05:10 07:32 WBC RBC Hgb Hct MCV MCH MCHC RDW Plt Count MPV Immature Gran % Neutrophils % Lymphocytes % Monocytes % Eosinophils % Basophils % Nucleated RBC % Absolute Neutrophils Absolute Lymphocytes Absolute Monocytes Absolute Eosinophils Absolute Basophils RBC Morphology Macrocytosis PT INR APTT VBG pH VBG pCO2 VBG pO2 VBG HCO3 VBG Total CO2 VBG Base Excess VBG Lactate Sodium 122 L* 122 L* Potassium 6.2 H* 6.1 H* Chloride 92 L 93 L Carbon Dioxide 21.4 15.5 L Anion Gap 8.6 13.5 H BUN 43 H 41 H Creatinine 1.6 H 1.5 H Est GFR (CKD-EPI 2020) 37.62 40.65 Glucose 439 H 567 H* Calcium 8.4 L 7.9 L Total Bilirubin AST ALT Alkaline Phosphatase Total Protein Albumin Urine Color Yellow Urine Clarity Clear Urine pH 5.5 Ur Specific [place] 1.010 Urine Protein Negative Urine Ketones Negative Urine Blood Moderate H Urine Nitrite Negative Urine Bilirubin Small H Urine Urobilinogen 0.2 Ur Leukocyte Esterase Trace H Urine RBC 0-2 Urine WBC 10-20 H Ur Epithelial Cells Few Urine Crystals Negative Urine Bacteria Rare Urine Casts Negative Urine Mucus Negative Ur Culture Indicated? Yes Urine Glucose >=1000 H 08/23/22 08/23/22 08:08 08:08 WBC RBC Hgb Hct MCV MCH MCHC RDW Plt Count MPV Immature Gran % Neutrophils % Lymphocytes % Monocytes % Eosinophils % Basophils % Nucleated RBC % Absolute Neutrophils Absolute Lymphocytes Absolute Monocytes Absolute Eosinophils Absolute Basophils RBC Morphology Macrocytosis PT INR APTT VBG pH 7.42 H VBG pCO2 30 L VBG pO2 102 VBG HCO3 19 L VBG Total CO2 > 99 H VBG Base Excess -5 L VBG Lactate 4.9 H* Sodium Potassium Chloride Carbon Dioxide Anion Gap BUN Creatinine Est GFR (CKD-EPI 2020) Glucose Calcium Total Bilirubin AST ALT Alkaline Phosphatase Total Protein Albumin Urine Color Urine Clarity Urine pH Ur Specific [place] Urine Protein Urine Ketones Urine Blood Urine Nitrite Urine Bilirubin Urine Urobilinogen Ur Leukocyte Esterase Urine RBC Urine WBC Ur Epithelial Cells Urine Crystals Urine Bacteria Urine Casts Urine Mucus Ur Culture Indicated? Urine Glucose Time Spent with Patient Time Spent with Patient: >50 minutes Time was spent: preparing to see the patient(eg.review tests), obtaining and/or reviewing separately otained hiistory, ordering medications,tests, procedures, referring, communicating with other health career technical supervisor, indepentently interpreting results, counseling the patient and care coordination
--- NOTE | 2022-08-23 08:35 | INITIAL_ITS ---
Date of service: 08/23/22 Time of Service: 08:35 Care Management Initial Assmt Initial Assessment REASON FOR HOSPITALIZATION:: knee effusion and ELVIA PREVIOUS FUNCTIONAL STATUS/SOCIAL/FAMILY SUPPORTS:: Janice lives in a double wide mobile home in [place] with one of her her sons. She has 4 sons and a daughter. Another son lives next door with his family and a daughter lives in [place]. Janice also has 14 grandchildren. She uses a cane and a walker as needed and also has a commode. Since she developed the infection in he knee her ambulation has been difficult and her sons and [id number] have been helping her. CURRENT FUNCTIONAL STATUS:: Janice was sitting up in be when CM met with her. She was very pleasant and engaged well with CM. She talked a bit about her family and the challenges she has had since her knee became swollen, painful and infected. She is scheduled to go to the OR tomorrow for a washout. Janice requested that CM assist her with the completion of her Advanced Directives, which was done. Copies were made and the document was filed with the [place] AD Registry. ADVANCE DIRECTIVES:: none on file Has patient been provided with info about the portal/API?: Yes Did the patient sign up for the portal?: Yes CODE STATUS:: Full Code INSURANCE COVERAGE / FINANCIAL ISSUES:: Medicare Medicaid CURRENT HOME/COMMUNITY SERVICES/EQUIPMENT:: cane, walker, commode PRIMARY CARE PHYSICIAN:: Deandra Hutchins POTENTIAL DISCHARGE NEEDS:: follow up with PCP and plan of care PATIENT/FAMILY EDUCATION NEEDS:: Review of discharge instructions, activity, limitations, follow up plan, discuss Ask Me Three TRANSPORTATION:: via private vehicle PLAN:: Anticipate Janice will be discharged home with no new services when medically cleared by provider. She will follow up with her plan of care as prescribed and transport with family. CM will follow and support discharge needs. PFSH All Active Problems (Updated 08/23/22 @ 11:31 by Justin Soliz MD) Septic arthritis of knee, left (Acute) Cirrhosis of liver (Acute) Hyperbilirubinemia (Acute) Hepatorenal syndrome (Acute) ELVIA (acute kidney injury) (Acute) Acute dehydration (Acute) ADHD (Acute) Crohn's disease in remission (Acute) Anemia of chronic disease (Acute) Acute exacerbation of chronic low back pain (Acute) Back pain (Acute) Stoma bleed (Acute) Chest pain (Acute) H/O malignant neoplasm of colon (Acute) DVT prophylaxis (Acute) Discharge planning issues (Acute) Anemia, blood loss (Acute) GI bleed (Chronic) Medical History Adjustment disorder Chronic low back pain Colon cancer Depression with anxiety Diabetes mellitus type 2 in obese GERD (gastroesophageal reflux disease) Hyposmia HADLEY (obstructive sleep apnea) PTSD (post-traumatic stress disorder) Vitamin B12 deficiency Vitamin D deficiency Surgical History H/O ileostomy History of endometrial ablation S/P colectomy S/P D&C (status post dilation and curettage) S/P LEEP Family History Mother , age 49 due to heart disease Diabetes Heart disease Hypertension Father Heart disease Social History Smoking/Tobacco Use Status: Never Smoking risk assessment performed?: Yes Alcohol Intake: never Drug use: Never Substance use type: does not use Household members: family Housing: house Number of Children: 5 number of grandchildren: 15 Pets and animals: Yes Pets and animals: dog(s) What type of physical activity do you participate in: none Seatbelt use: always Do you feel safe at home: Yes Do you feel safe in your relationship?: Yes
[2022-08-23 08:39] LABS: Platelet Count 106 10^3/uL (130-400); WBC 13.74 10^3/uL (4.4-10.8)
[2022-08-23 08:40] LABS: MCV 112 fL (80-95); RBC 2.47 10^6/uL (3.93-5.22)
[2022-08-23] MEDS: CEFEPIME 2 GM in Normal Saline 100 ML IVPB ×2 (08:45→19:28)
[2022-08-23 08:55] LABS: Procalcitonin 0.7 ng/mL
[2022-08-23] MEDS: Insulin REGULAR-Human 100 UNITS/ML UNIT 10 UNITS IV (09:00)
[2022-08-23] MEDS: VANCOMYCIN/WATER (PEG) 1.75 GM/350 ML BAG IV (10:10)
[2022-08-23 10:25] LABS: Anion Gap 10.3 mmol/L (3-11); BUN 44 mg/dL (7-18); CO2 18.7 mmol/L (21.0-32.0); CREATININE 1.7 mg/dL (0.55-1.02); Calcium 7.8 mg/dL (8.5-10.1); Chloride 95 mmol/L (98-107); Estimated GFR 34.98 (mL/min/1.73m2); Potassium 5.9 mmol/L (3.5-5.1)
[2022-08-23 10:35] LABS: Glucose 572 mg/dL (74-106); Sodium 124 mmol/L (136-145)
--- NOTE | 2022-08-23 10:47 | NUR.NOTE ---
Dr. Soliz in, aspirated cloudy yellow-orange fluid from left knee. Labs sent to lab from knee aspirate. Pt helen procedure fair. Nursing Note:
--- NOTE | 2022-08-23 11:10 | W.ORTHOCONSU ---
Date of service: 08/23/22 Time of Service: 10:30 History of Present Illness History of Present Illness Chief Complaint: Left knee pain and swelling Narrative: Janice is a 56-year-old who does have a complex medical history. She is status post colectomy for colon cancer with a colostomy. She has longstanding liver cirrhosis which is followed by hepatology at [facility]. She has had no joint replacement or joint surgery. However, just over 2 weeks ago she developed the relatively acute onset of left knee pain. She felt that his knee pain was present with most all motions about the left knee. She was seen in the emergency department on August 09. At that time she was noted to have significant left knee pain and pain with any motion, passively or actively. There was a concern at that time for infection given her medical conditions of diabetes and liver disease. However, no aspiration was performed. Nevertheless, Bactrim was prescribed for unclear etiology and reason. She reports continued pain. She went to [facility] who then ordered an MRI and referral to orthopedics. However, this pain continued to progress such that she was unable to bear any weight on the left leg and unable to move the left leg without extreme pain. She had increasing nausea, malaise, fatigue. She declined aspiration of the left knee in the emergency department but was admitted to the ICU for multiple electrolyte abnormalities including hyperglycemia, greater than 500, hyperkalemia, greater than 6, hyponatremia, elevated liver enzymes and bilirubin. Her C-reactive protein was greater than 7. I was called by Dr. Ramires within this morning due to the concern about a potential septic left knee given that she tolerates no motion of the left knee and has notable swelling with this history. Janice reports that she is unable to bear any weight on the left leg and she only can move it a few degrees without exquisite pain shooting up and down the leg although originating within the knee itself. She denies any pain within any other joints or any other extremities. She denies previous surgery or injury to this left knee except for a mild twisting injury while getting off the couch predating her current symptoms. Consults Consult date: 08/23/22 Requesting physician: Segundo Diaz Consult Reason Septic arthritis, left knee Assessment and Plan Assessment and plan (1) Septic arthritis of knee, left: Status: Acute Assessment and plan: Janice is a 56-year-old who unfortunately has septic arthritis of her left knee. This is a [place] left knee which is quite uncommon except in those patients who have some immune compensation. Unfortunate, but given her diabetes, liver disease, previous history of surgery and cancer, this does not fit the category. Unfortunately, she likely presented with the start of the infection greater than 2 weeks ago. The fluid obtained today is grossly purulent. At this point I would recommend urgent irrigation and debridement of the left knee. The infection is significantly chondrotoxic and can lead to irreparable changes in the left knee in the form of arthritis, bony erosions, cystic degeneration, even after adequate infectious treatment. Unfortunately, if she is too sick to proceed with anesthesia today. She has severe hyperkalemia, notable hyponatremia, recalcitrant hyperglycemia on an insulin drip, among others. However, she is showing some improvements with the electrolytes since her admission last night. I discussed the case with Dr. Banda as well as with anesthesia. We all agree that she is heading in the right direction but do not feel she is safe to undergo anesthesia at this time. She is not a candidate for a spinal given the infection and the elevated INR. Dr. Banda will continue to aggressively work on managing these electrolyte abnormalities, with a goal glucose of 200, sodium of greater than 128, and potassium close to 5, particular less than 5.5. These changes will have to happen slow but are trending in the right direction except for the glucose. I reviewed this with Janice. I was very honest with her this is a serious situation and that she does need surgery. My preference would be for an arthroscopic irrigation and debridement given that this is a [place] knee. However, it has been present for greater than 2 weeks and the likelihood of potential failure of this is still quite high. I would like to repeat an x-ray to make sure there is been no gross bony changes about the left knee that would need to be dealt with in a more open approach. I was also very honest that there is a chance of failure of this procedure requiring a secondary arthroscopic lavage or potential an open procedure or even worse case scenario antibiotic spacer placement. I reviewed the technical details of the case, performing it arthroscopically. I reviewed some of the risk to include continued infection, need for repeat procedures, pain, stiffness. She agrees with the need to proceed. She may eat and drink today but she will be n.p.o. after midnight tonight with plan for surgery in the morning assuming that her electrolyte abnormalities continue to improve. I will follow closely with her labs throughout the day today and discussed with Dr. Banda and anesthesia along the way to make sure we are ready for surgical debridement, source control. Continue to follow blood cultures. She has no other areas of pain to suggest secondary infection site, however, this must be entertained for any areas of pain. If she is unable to make improvements with her electrolytes or she seems to be getting worse then urgent transfer to a tertiary center would be recommended. Review of Systems All systems reviewed & are unremarkable except as noted in HPI and below PFSH All Active Problems (Updated 08/23/22 @ 11:31 by Justin Soliz MD) Septic arthritis of knee, left (Acute) Cirrhosis of liver (Acute) Hyperbilirubinemia (Acute) Hepatorenal syndrome (Acute) ELVIA (acute kidney injury) (Acute) Acute dehydration (Acute) ADHD (Acute) Crohn's disease in remission (Acute) Anemia of chronic disease (Acute) Acute exacerbation of chronic low back pain (Acute) Back pain (Acute) Stoma bleed (Acute) Chest pain (Acute) H/O malignant neoplasm of colon (Acute) DVT prophylaxis (Acute) Discharge planning issues (Acute) Anemia, blood loss (Acute) GI bleed (Chronic) Medical History Adjustment disorder Chronic low back pain Colon cancer Depression with anxiety Diabetes mellitus type 2 in obese GERD (gastroesophageal reflux disease) Hyposmia HADLEY (obstructive sleep apnea) PTSD (post-traumatic stress disorder) Vitamin B12 deficiency Vitamin D deficiency Surgical History H/O ileostomy History of endometrial ablation S/P colectomy S/P D&C (status post dilation and curettage) S/P LEEP Family History Mother , age 49 due to heart disease Diabetes Heart disease Hypertension Father Heart disease Social History Smoking/Tobacco Use Status: Never Smoking risk assessment performed?: Yes Alcohol Intake: never Drug use: Never Substance use type: does not use Household members: family Housing: house Number of Children: 5 number of grandchildren: 15 Pets and animals: Yes Pets and animals: dog(s) What type of physical activity do you participate in: none Seatbelt use: always Do you feel safe at home: Yes Do you feel safe in your relationship?: Yes Exam Narrative Exam Narrative: Semireclined in the hospital bed. Head is normocephalic and atraumatic. Alert and oriented x3. Eyes are anicteric. Skin is jaundiced. She sits with the left leg in a semiflexed position, both at the hip and the knee. There is a large effusion about the left knee. There is generalized pain to palpation throughout the knee and the soft tissues as well as the joint line. She holds the leg in about 40 degrees of flexion. I can move it 5 or 10 degrees in either direction but anything more than that she grabs the leg and screams in pain. She has notable, 2+, pitting edema throughout the left leg, 1+ pitting edema on the right side. She is able to demonstrate active dorsiflexion and plantarflexion of the left ankle without limitation although causing some very mild knee pain. Sensation intact to light touch over the deep and superficial peroneal nerve and tibial nerve. Results Last Vital Signs Temp 36.9 C 08/23/22 07:30 Pulse 96 H 08/23/22 07:30 Resp 18 08/23/22 07:30 BP 123/39 L 08/23/22 06:01 Pulse Ox 99 08/23/22 07:30 Labs 08/23/22 07:32 08/23/22 10:00 Labs: Laboratory Results - last 24 hr 08/22/22 08/22/22 08/22/22 23:05 23:05 23:05 WBC 17.55 H RBC 2.98 L Hgb 11.0 L Hct 31.9 L MCV 107 H MCH 36.9 H MCHC 34.5 RDW 14.6 Plt Count 133 MPV 9.7 Immature Gran % 5.4 Neutrophils % 80.1 Lymphocytes % 5.4 Monocytes % 8.5 Eosinophils % 0.1 Basophils % 0.5 Nucleated RBC % 0.1 Absolute Neutrophils 14.06 H Absolute Lymphocytes 0.95 L Absolute Monocytes 1.49 H Absolute Eosinophils 0.02 Absolute Basophils 0.09 RBC Morphology See Below Macrocytosis 1+ PT 16.1 H INR 1.6 H APTT 32.3 H VBG pH VBG pCO2 VBG pO2 VBG HCO3 VBG Total CO2 VBG Base Excess VBG Lactate Sodium 120 L* Potassium 7.5 H* Chloride 90 L Carbon Dioxide 23.1 Anion Gap 6.9 BUN 43 H Creatinine 1.5 H Est GFR (CKD-EPI 2020) 40.65 Glucose 530 H* Calcium 8.2 L Phosphorus Total Bilirubin 17.5 H AST 45 H ALT 12 L Alkaline Phosphatase 131 H C-Reactive Protein Total Protein 7.6 Albumin 1.9 L Procalcitonin Urine Color Urine Clarity Urine pH Ur Specific [place] Urine Protein Urine Ketones Urine Blood Urine Nitrite Urine Bilirubin Urine Urobilinogen Ur Leukocyte Esterase Urine RBC Urine WBC Ur Epithelial Cells Urine Crystals Urine Bacteria Urine Casts Urine Mucus Ur Culture Indicated? Urine Glucose 08/23/22 08/23/22 08/23/22 02:30 05:10 07:32 WBC RBC Hgb Hct MCV MCH MCHC RDW Plt Count MPV Immature Gran % Neutrophils % Lymphocytes % Monocytes % Eosinophils % Basophils % Nucleated RBC % Absolute Neutrophils Absolute Lymphocytes Absolute Monocytes Absolute Eosinophils Absolute Basophils RBC Morphology Macrocytosis PT INR APTT VBG pH VBG pCO2 VBG pO2 VBG HCO3 VBG Total CO2 VBG Base Excess VBG Lactate Sodium 122 L* 122 L* Potassium 6.2 H* 6.1 H* Chloride 92 L 93 L Carbon Dioxide 21.4 15.5 L Anion Gap 8.6 13.5 H BUN 43 H 41 H Creatinine 1.6 H 1.5 H Est GFR (CKD-EPI 2020) 37.62 40.65 Glucose 439 H 567 H* Calcium 8.4 L 7.9 L Phosphorus Total Bilirubin AST ALT Alkaline Phosphatase C-Reactive Protein Total Protein Albumin Procalcitonin Urine Color Yellow Urine Clarity Clear Urine pH 5.5 Ur Specific [place] 1.010 Urine Protein Negative Urine Ketones Negative Urine Blood Moderate H Urine Nitrite Negative Urine Bilirubin Small H Urine Urobilinogen 0.2 Ur Leukocyte Esterase Trace H Urine RBC 0-2 Urine WBC 10-20 H Ur Epithelial Cells Few Urine Crystals Negative Urine Bacteria Rare Urine Casts Negative Urine Mucus Negative Ur Culture Indicated? Yes Urine Glucose >=1000 H 08/23/22 08/23/22 08/23/22 07:32 08:08 08:08 WBC 13.74 H RBC 2.47 L Hgb 9.5 L Hct 27.6 L MCV 112 H D MCH 38.5 H MCHC 34.4 RDW 14.8 H Plt Count 106 L MPV 10.4 Immature Gran % Neutrophils % Lymphocytes % Monocytes % Eosinophils % Basophils % Nucleated RBC % Absolute Neutrophils Absolute Lymphocytes Absolute Monocytes Absolute Eosinophils Absolute Basophils RBC Morphology Macrocytosis PT INR APTT VBG pH 7.42 H VBG pCO2 30 L VBG pO2 102 VBG HCO3 19 L VBG Total CO2 > 99 H VBG Base Excess -5 L VBG Lactate Sodium Potassium Chloride Carbon Dioxide Anion Gap BUN Creatinine Est GFR (CKD-EPI 2020) Glucose Calcium Phosphorus 4.2 Total Bilirubin AST ALT Alkaline Phosphatase C-Reactive Protein 7.86 H Total Protein Albumin Procalcitonin Urine Color Urine Clarity Urine pH Ur Specific [place] Urine Protein Urine Ketones Urine Blood Urine Nitrite Urine Bilirubin Urine Urobilinogen Ur Leukocyte Esterase Urine RBC Urine WBC Ur Epithelial Cells Urine Crystals Urine Bacteria Urine Casts Urine Mucus Ur Culture Indicated? Urine Glucose 08/23/22 08/23/22 08/23/22 08:08 08:08 10:00 WBC RBC Hgb Hct MCV MCH MCHC RDW Plt Count MPV Immature Gran % Neutrophils % Lymphocytes % Monocytes % Eosinophils % Basophils % Nucleated RBC % Absolute Neutrophils Absolute Lymphocytes Absolute Monocytes Absolute Eosinophils Absolute Basophils RBC Morphology Macrocytosis PT INR APTT VBG pH VBG pCO2 VBG pO2 VBG HCO3 VBG Total CO2 VBG Base Excess VBG Lactate 4.9 H* Sodium 124 L Potassium 5.9 H Chloride 95 L Carbon Dioxide 18.7 L Anion Gap 10.3 BUN 44 H Creatinine 1.7 H Est GFR (CKD-EPI 2020) 34.98 Glucose 572 H* Calcium 7.8 L Phosphorus Total Bilirubin AST ALT Alkaline Phosphatase C-Reactive Protein Total Protein Albumin Procalcitonin 0.7 Urine Color Urine Clarity Urine pH Ur Specific [place] Urine Protein Urine Ketones Urine Blood Urine Nitrite Urine Bilirubin Urine Urobilinogen Ur Leukocyte Esterase Urine RBC Urine WBC Ur Epithelial Cells Urine Crystals Urine Bacteria Urine Casts Urine Mucus Ur Culture Indicated? Urine Glucose Imaging Imaging Studies: X-ray of the left knee was performed August 09 which demonstrates no significant arthritic change. No fracture. No bony lesions. There is a large effusion seen on the lateral view. Procedures Joint Aspiration/Injection Joint Asp./Inject. 1: Time out performed: Yes (Verbally) Side of body: left Joint aspirated: knee Ultrasound guidance: No Skin prep: Chlorhexidine Local anesthesia used: other (Ethyl chloride spray) Amount of anesthesia used (ml): 0 Needle size used: 18G Fluid obtained: purulent Total fluid obtained (ml): 35 Patient tolerated procedure: well Complications: none Additional comments: Fluid sent to the lab for cell count and culture
[2022-08-23 11:48] LABS: Clarity Cloudy
[2022-08-23 11:49] LABS: Nucleated Cells 25780 uL (0)
[2022-08-23 12:13] LABS: Mononuclear Cells 12 %; Polynuclear Cells 88 %
--- NOTE | 2022-08-23 12:14 | DI.RAD_ITS ---
Exam(s) XR KNEE LT 2V AP,LAT EXAM: XR KNEE LT 2V AP,LAT CLINICAL HISTORY: ongoing septic arthritis - evaluate for bone lesio. TECHNIQUE: 2D digital imaging was performed of the left knee. Two images were obtained. AP and lat eral views were obtained. COMPARISON: CR,XR XR KNEE LT 3V AP,LAT,TRISTAN from 08/09/2022 FINDINGS: BONES: No acute fracture is present. No bony destructive lesion is seen. Anterior patellar enthesoph ytes are seen. JOINTS: The knee is normally aligned. There is a small joint effusion present. SOFT TISSUE: Normal. IMPRESSION: Small joint effusion. If there is continued clinical concern for septic arthritis, MRI or aspiration is recommended. DATA REPOSITORY: RADIATION DOSE DELIVERED:
[2022-08-23 12:31] LABS: Anion Gap 4.7 mmol/L (3-11); BUN 42 mg/dL (7-18); CO2 20.3 mmol/L (21.0-32.0); CREATININE 1.5 mg/dL (0.55-1.02); Calcium 7.6 mg/dL (8.5-10.1); Chloride 94 mmol/L (98-107); Estimated GFR 40.65 (mL/min/1.73m2); Glucose 484 mg/dL (74-106); Potassium 5.6 mmol/L (3.5-5.1)
--- NOTE | 2022-08-23 12:31 | DI.VRAD_ITS ---
PROCEDURE INFORMATION: Exam: XR Left Knee Exam date and time: 08/23/2022 11:59 AM Age: 56 years old Clinical indication: Other: Septic arthritus TECHNIQUE: Imaging protocol: Radiologic exam of the left knee. Views: 1 or 2 views. COMPARISON: CR XR KNEE LT 3V AP,LAT,TRISTAN 08/09/2022 8:00 AM FINDINGS: Bones/joints: No bony destruction, acute fracture or dislocation. Minimal left knee osteoarthritis. Extensor mechanism enthesopathy again noted. Small suprapatellar joint effusion. Soft tissues: See Bones/joints finding. IMPRESSION: Small suprapatellar joint effusion. No radiographic evidence of osteomyelitis. If there is continued concern for septic arthritis, recommend arthrocentesis or MRI for further evaluation. Dictated and Authenticated by: Humberto Cansa MD. Ordering:KALA Anderson MD
[2022-08-23 12:35] LABS: Sodium 119 mmol/L (136-145)
[2022-08-23] MEDS: Normal Saline 1,000 ML 150 ML IV (13:03)
[2022-08-23 14:59] LABS: Anion Gap 7.5 mmol/L (3-11); BUN 41 mg/dL (7-18); CO2 19.5 mmol/L (21.0-32.0); CREATININE 1.6 mg/dL (0.55-1.02); Calcium 7.4 mg/dL (8.5-10.1); Chloride 95 mmol/L (98-107); Estimated GFR 37.62 (mL/min/1.73m2)
[2022-08-23 15:02] LABS: Glucose 517 mg/dL (74-106)
[2022-08-23 15:03] LABS: Potassium 6.1 mmol/L (3.5-5.1); Sodium 122 mmol/L (136-145)
[2022-08-23 16:39] LABS: Anion Gap 6.4 mmol/L (3-11); BUN 41 mg/dL (7-18); CO2 20.6 mmol/L (21.0-32.0); CREATININE 1.5 mg/dL (0.55-1.02); Calcium 7.4 mg/dL (8.5-10.1); Chloride 97 mmol/L (98-107); Estimated GFR 40.65 (mL/min/1.73m2); Glucose 441 mg/dL (74-106); Potassium 5.8 mmol/L (3.5-5.1)
[2022-08-23 16:41] LABS: Sodium 124 mmol/L (136-145)
[2022-08-23] MEDS: INSULIN REGULAR IN 0.9 % NACL 100 UNIT/100 ML BAG 10 UNIT IV (18:05)
[2022-08-23] MEDS: Normal Saline 1,000 ML 200 ML IV ×2 (18:11→23:13)
[2022-08-23 18:29] LABS: Lactate 2.8 mmol/L (0.6-1.4)
[2022-08-23 18:36] LABS: Anion Gap 1.2 mmol/L (3-11); BUN 40 mg/dL (7-18); CO2 19.8 mmol/L (21.0-32.0); CREATININE 1.4 mg/dL (0.55-1.02); Calcium 7.3 mg/dL (8.5-10.1); Chloride 92 mmol/L (98-107); Estimated GFR 44.16 (mL/min/1.73m2); Glucose 393 mg/dL (74-106); Potassium 5.5 mmol/L (3.5-5.1)
[2022-08-23 18:40] LABS: Sodium 113 mmol/L (136-145)
[2022-08-23 20:09] LABS: Anion Gap 5.5 mmol/L (3-11); BUN 42 mg/dL (7-18); CO2 20.5 mmol/L (21.0-32.0); CREATININE 1.4 mg/dL (0.55-1.02); Calcium 7.4 mg/dL (8.5-10.1); Chloride 100 mmol/L (98-107); Estimated GFR 44.16 (mL/min/1.73m2); Glucose 340 mg/dL (74-106); Potassium 5.5 mmol/L (3.5-5.1); Sodium 126 mmol/L (136-145)
[2022-08-23] MEDS: Normal Saline Flush 10 ML SYR IVP (21:13)
[2022-08-24] VITALS (67 sets, daily range): BP systolic 90–131; BP diastolic 30–89; PULSE 59–103; RESP 11–23; TEMP 36.1–37.2; O2SAT 91–100; BMI 35.4
--- NOTE | 2022-08-24 00:04 | NUR.NOTE ---
Nursing Note: MIVF changed to D5LR @ 100ml/hr, Insulin drip to remain @ 4units/hour.
[2022-08-24] MEDS: DEXTROSE 5%-LACTATED RINGERS 1,000 ML 100 ML IV (00:09)
[2022-08-24 00:38] LABS: Lactate 1.8 mmol/L (0.6-1.4)
[2022-08-24 00:50] LABS: Anion Gap 4.7 mmol/L (3-11); BUN 40 mg/dL (7-18); CO2 21.3 mmol/L (21.0-32.0); CREATININE 1.2 mg/dL (0.55-1.02); Calcium 7.6 mg/dL (8.5-10.1); Chloride 104 mmol/L (98-107); Estimated GFR 53.13 (mL/min/1.73m2); Glucose 181 mg/dL (74-106); Potassium 5.7 mmol/L (3.5-5.1); Sodium 130 mmol/L (136-145)
--- NOTE | 2022-08-24 01:35 | NUR.NOTE ---
Nursing Note: Anticipate BG increase secondary to change in MIVF to include Dextrose, and patient ate 75% of diet with supper.
[2022-08-24] MEDS: INSULIN REGULAR IN 0.9 % NACL 100 UNIT/100 ML BAG 11 UNIT IV (04:06)
[2022-08-24] MEDS: Levothyroxine 50 MCG TAB (05:44)
[2022-08-24 06:40] LABS: HGB 8.3 g/dL (11.2-15.7); MCH 37.1 pg (27.0-33.0); MCHC 34.6 % (32.0-36.0); RBC 2.24 10^6/uL (3.93-5.22); RDW-SD 57.8 fL; WBC 10.94 10^3/uL (4.4-10.8)
[2022-08-24 06:50] LABS: INR 1.6 (0.9-1.1); PTT Activated 32.7 sec (21.5-31.9); Prothrombin Time 16.2 sec (9.3-11.0)
[2022-08-24 06:55] LABS: Magnesium 1.8 mg/dL (1.8-2.4)
[2022-08-24 06:59] LABS: ALT 9 U/L (14-59); AST 32 U/L (15-37); Albumin 1.3 g/dL (3.4-5.0); Alkaline Phosphatase 93 U/L (46-116); Anion Gap 6.6 mmol/L (3-11); BUN 34 mg/dL (7-18); Bilirubin, Total 7.5 mg/dL (0.2-1.0); CO2 21.4 mmol/L (21.0-32.0); Calcium 7.6 mg/dL (8.5-10.1); Chloride 105 mmol/L (98-107); Estimated GFR 66.12 (mL/min/1.73m2); Glucose 125 mg/dL (74-106); Potassium 4.8 mmol/L (3.5-5.1); Sodium 133 mmol/L (136-145); Total Protein 5.8 g/dL (6.4-8.2)
[2022-08-24 07:00] LABS: Vancomycin, Random 10.2 ug/mL
[2022-08-24 07:46] LABS: MCV 107 fL (80-95)
[2022-08-24 07:47] LABS: Platelet Count 93 10^3/uL (130-400)
--- NOTE | 2022-08-24 08:22 | DI.US_ITS ---
APPROVED REPORT EXAM: Comprehensive 2D, Doppler, and color-flow Echocardiogram Other Information Study Quality: Adequate. Technically limited study due to inability to position patient exam done sup [facility] bedside ICU. Conclusion Normal left ventricular wall thickness and chamber size. Ejection fraction is 60 to 65%. Wall motio n is normal Normal right ventricular size and systolic function Both atria are normal in size There is no structural or hemodynamically significant valvular disease No valvular vegetations were identified Wall motion Left Ventricle The left ventricle is normal size. The left ventricular systolic function is normal. The left ventric ular ejection fraction is within the normal range. There is normal left ventricular wall thickness. T here is normal LV segmental wall motion. There is no ventricular septal defect visualized. LVEF is 63 %. Right Ventricle The right ventricle is normal size. The right ventricular systolic function is normal. Atria The left atrium size is normal. The right atrium size is normal. The interatrial septum is intact wit h no evidence for an atrial septal defect. Aortic Valve Aortic valve is trileaflet. No hemodynamically significant valvular aortic stenosis. No aortic regu rgitation is present. Mitral Valve The mitral valve is normal in structure. No evidence of mitral valve stenosis. Trace mitral regurgita tion. Tricuspid Valve The tricuspid valve is normal in structure. There is no tricuspid valve stenosis. Trace tricuspid reg urgitation. Unable to assess PA pressure. Pulmonic Valve The pulmonary valve is normal in structure. There is no pulmonic valvular stenosis. Trace pulmonic re gurgitation. Great Vessels The aortic root is normal in size. The ascending aorta is normal in size. Aortic arch is normal in ca liber. IVC is normal in size and collapses >50% with inspiration. Pericardium There is no pericardial effusion. 2D Dimensions IVSD d PLAX 0.74 cm F: 0.6-1.0 LV Vol A2C d MOD 139.4 mL LVPW d PLAX 0.80 cm F: 0.6 - 1.0 LV Vol A4C d MOD 136.1 mL LVID d PLAX 5.15 cm F: 3.8 - 5.2 LA vol/ BSA A2C s A-L 34.5 mL/m2 LVDs 3.25 cm F: 2.2 - 3.5 LA vol/ BSA A4C s A-L 41.6 mL/m2 Ao Root d 2.71 cm F: 2.7 - 3.3 LA Vol/ BSA Biplane s A-L 40.4 mL/m2 RA Area A4C 17.40 cm2 LA Area A4C s MOD 24.39 cm2 RA Vol/ BSA A4C s A-L 23.9 mL/m2 LA Area A2C s MOD 20.85 cm2 Ao Asc Diam d 2.70 cm F: 2.3 - 3.1 LV EF A4C MOD 62.8 % LV EF Teichholz 65.5 % LV EF A2C MOD 63.5 % LVEF (Driscoll's) 60.35 % F: 54 - 74 LV EF Biplane MOD 60.3 % LV Volume 104.79 mL F: 46 - 106 SV 83.44 mL LV Volume Index 54.01 mL/m2 F: 29 - 61 SV Index 43.03 mL/m2 LV Vol Biplane MOD 138.3 mL FS 36.15 % M-Mode TAPSE 2.79 cm (M/F) >1.7 LV Diastology MV E' medial 0.186 (>0.07 m/s) E/A Ratio 1.1 LV E/e MED 5.55 (<14) MV E Vmax 1.04 (0.4-1.3 m/s) MV E' lateral 0.172 (>0.1 m/s) MV A Vmax 0.95 (0.4-1.3 m/s) LV E/e LAT 6.00 (<14) MV E/A Ratio 1.08 MV E/E' medial 5.58 MV E/E' lateral 6.03 Aortic Valve LVOT Area 3.55 cm2 AoV Area Vmax 2.60 cm2 LVOT Vmax 1.83 m/s AoV Area/ BSA (Vmax) 1.33 cm2/m2 LVOT Mean Jimbo. 1.35 m/s PAUL Mean Jimbo. 2.92 cm2 LVOT Peak Grad 13.4 mmHg PAUL Mean Jimbo. Index 1.50 cm2/m2 LVOT Mean Grad 8.4 mmHg LVOT VTI 0.308 m LVOT Diam s 2.10 cm AoV Vmax 2.51 m/s Velocity Ratio 0.73 AoV Mean Jimbo. 1.66 m/s AoV Peak Grad 25.3 mmHg LVOT SV 109.42 mL AoV Mean Grad 12.9 mmHg AoV VTI 0.427 m AoV Area VTI 2.56 cm2 AoV Area/ BSA (VTI) 1.32 cm/m2 Mitral Valve MV DT 250 (160-240 msec) MV PHT 73 msec MV Area PHT 3.03 cm2 MV VTI 0.341 m MV Area VTI 3.21 (4.0-6.0 cm2) Pulmonary Valve PV Vmax 1.84 (0.5-1.5 m/s) RVOT Peak Gr. 7.42 mmHg PV Peak Grad 13.6 mmHg RVOT Mean Gr. 3.95 mmHg PV Mean Grad 7.7 mmHg RVOT VTI 0.283 m PV VTI 0.340 m RVOT Vmax 1.36 m/s
--- NOTE | 2022-08-24 08:55 | PUCC_ITS ---
General Date of Service Date of service: 08/24/22 Time of Service: 08:55 Reason for Admission to ICU: Sepsis Assessment and Plan Assessment and plan (1) Gram-positive cocci bacteremia: Status: Acute (2) Septic arthritis of knee, left: Status: Acute (3) Hypotension: Status: Acute (4) Cirrhosis of liver: Status: Acute (5) Hyperbilirubinemia: Status: Acute (6) Lactic acidosis: Status: Acute (7) Hyponatremia: Status: Acute (8) Hyperglycemia: Status: Acute (9) Hypocalcemia: Status: Acute (10) Hypoproteinemia: Status: Acute (11) Coagulopathy: Status: Acute (12) Leukocytosis: Status: Acute (13) Thrombocytopenia: Status: Chronic Assessment and plan: This is a 56 yo with cirrhosis s/p TIPS admitted for left septic arthritic and gram positive bacteremia. She is going to the OR today for a washout. She is covered with cefepime and vanc for now while speciation is pending. She underwent echo this morning to ensure there is no endocarditis. Although not common, it is possible the pimple she popped with blood could be a nidus of her bacteremia, particularly with her immunocompromized state (cirrhosis). Recommendations Pulmonary: No acute concerns Cardiac: Hypotension - reassess after OR - may required vasopressor support - MAP goal >65mmHg - if needed would recommend Levophed post op - reassess volume status post op - pending echo read Renal: Renal insufficiency - follows [facility] hepatology, concern for hepatorenal - continue to monitor strict I/O's - MAP >65mmHg Lactic acidosis - normalized, no need to further trend Hyponatremia - improved at back at her baseline Hypokalemia - resolved Hypocalcemia - continue to monitor I&O: Intake & Output 08/21/22 08/22/22 08/23/22 08/24/22 23:59 23:59 23:59 23:59 Intake Total 5156.083 / 5156.083 250.201 / 250.201 Output Total 2575 / 2775 625 / 625 Balance 2581.083 / 2381.083 -374.799 / -374.799 Weight 81.647 kg 89.3 kg 93.7 kg Daily Fluid Goal:: positive GI Nutrition: Cirrhosis - continue to trend bilirubin - not in acute on chronic or fulminate failure Date of Last Bowel Movement: 08/23/22 Infectious Disease: Grams positive cocci bacteremia - vanc - cefepime - await speciation - await echo results Left septic knee arthritis - OR today - care per ortho - continuing LR sonya-op with volume re-assessment post operatively Hematologic: Leukocytosis - reactive Coagulopathy - due to liver failure - recommend fibringogen to assess for DIC Thrombocytopenia - some dilution effect - consider manual to assess for schistocytes if worsening Neurologic: No acute concerns Endocrine: Hyperglycemia - recommend stopping both D5LR and insulin infusion - can give low dose long acting subq - continue to monitor - sliding scale Lines: PIV Prophylaxis: DVT ppx per ortho recommendations (her coagulopathy from cirrhosis is not protective from DVT) Code Status: Resuscitation Status Full Code Subjective Critical and life-threatening events over the past 24 hours: This is a 56 yo with known cirrhosis s/p TIPS, colon cancer with ostomy (1999) who was diagnosed with gram positive cocci in clusters, both in her blood and as well within her left knee (which is [place]). She did have lactic acidosis which has normalized with resuscitation. She also had severe hyperglycemia and was started on an insulin drip for this. She is planned to go to the OR today for a washout of the knee. She is on both cefepime and vancomycin. She was having an echo completed during my interview. She denies discomfort and overall is feeling well. When asking about possible sources for her bacteremia, she states that recently she had a large pimple on her hip that she did pop and notes a fair amount of blood came out during this. Exam Narrative Exam Narrative: Gen: NAD, normal respiratory effort, well-nourished HENT: PERRL, icteric Chest: No respiratory distress, normal appearance of chest, clear to auscultation bilaterally, no crackles or wheezes, normal inspiratory effort Heart: regular rate and rhythym, no murmurs, rubs or gallops Abdomen: Non-distended, soft, non tender Extremities: No clubbing, + LE edema Neuro: AAOx3 , non focal Psych: cooperative, appropriate mental affect Most Recent VS/Results Last Vital Signs Temp 36.6 C 08/24/22 04:00 Pulse 67 08/24/22 06:01 Resp 16 08/24/22 06:01 BP 98/43 L 08/24/22 06:01 Pulse Ox 92 08/24/22 04:00 Laboratory Results - last 24 hr 08/23/22 08/23/22 08/23/22 08:08 08:08 10:00 WBC RBC Hgb Hct MCV MCH MCHC RDW Plt Count MPV PT INR APTT VBG O2 Saturation VBG Lactate Sodium 124 L Potassium 5.9 H Chloride 95 L Carbon Dioxide 18.7 L Anion Gap 10.3 BUN 44 H Creatinine 1.7 H Est GFR (CKD-EPI 2020) 34.98 Glucose 572 H* Calcium 7.8 L Magnesium Total Bilirubin AST ALT Alkaline Phosphatase Total Protein Albumin Procalcitonin 0.7 Fluid Source Fluid Color Fluid Clarity Fluid WBC Fld Polynuclear WBCs % Fluid Mononuclear Cell Random Vancomycin 08/23/22 08/23/22 08/23/22 10:30 12:09 14:00 WBC RBC Hgb Hct MCV MCH MCHC RDW Plt Count MPV PT INR APTT VBG O2 Saturation VBG Lactate Sodium 119 L* 122 L* Potassium 5.6 H 6.1 H* Chloride 94 L 95 L Carbon Dioxide 20.3 L 19.5 L Anion Gap 4.7 7.5 BUN 42 H 41 H Creatinine 1.5 H 1.6 H Est GFR (CKD-EPI 2020) 40.65 37.62 Glucose 484 H 517 H* Calcium 7.6 L 7.4 L Magnesium Total Bilirubin AST ALT Alkaline Phosphatase Total Protein Albumin Procalcitonin Fluid Source L Knee Fluid Color Yellow Fluid Clarity Cloudy Fluid WBC 98367 Fld Polynuclear WBCs % 88 Fluid Mononuclear Cell 12 Random Vancomycin 08/23/22 08/23/22 08/23/22 16:15 18:10 18:10 WBC RBC Hgb Hct MCV MCH MCHC RDW Plt Count MPV PT INR APTT VBG O2 Saturation VBG Lactate 2.8 H* Sodium 124 L 113 L* D Potassium 5.8 H 5.5 H Chloride 97 L 92 L Carbon Dioxide 20.6 L 19.8 L Anion Gap 6.4 1.2 L BUN 41 H 40 H Creatinine 1.5 H 1.4 H Est GFR (CKD-EPI 2020) 40.65 44.16 Glucose 441 H 393 H Calcium 7.4 L 7.3 L Magnesium Total Bilirubin AST ALT Alkaline Phosphatase Total Protein Albumin Procalcitonin Fluid Source Fluid Color Fluid Clarity Fluid WBC Fld Polynuclear WBCs % Fluid Mononuclear Cell Random Vancomycin 08/23/22 08/23/22 08/24/22 19:42 20:00 00:30 WBC RBC Hgb Hct MCV MCH MCHC RDW Plt Count MPV PT INR APTT VBG O2 Saturation VBG Lactate Sodium 126 L D Cancelled 130 L Potassium 5.5 H Cancelled 5.7 H Chloride 100 Cancelled 104 Carbon Dioxide 20.5 L Cancelled 21.3 Anion Gap 5.5 Cancelled 4.7 BUN 42 H Cancelled 40 H Creatinine 1.4 H Cancelled 1.2 H Est GFR (CKD-EPI 2020) 44.16 Cancelled 53.13 Glucose 340 H Cancelled 181 H Calcium 7.4 L Cancelled 7.6 L Magnesium Total Bilirubin AST ALT Alkaline Phosphatase Total Protein Albumin Procalcitonin Fluid Source Fluid Color Fluid Clarity Fluid WBC Fld Polynuclear WBCs % Fluid Mononuclear Cell Random Vancomycin 08/24/22 08/24/22 08/24/22 00:30 06:20 06:20 WBC 10.94 H RBC 2.24 L Hgb 8.3 L Hct 24.0 L MCV 107 H D MCH 37.1 H MCHC 34.6 RDW 15.0 H Plt Count 93 L MPV 10.0 PT INR APTT VBG O2 Saturation VBG Lactate 1.8 H Sodium Potassium Chloride Carbon Dioxide Anion Gap BUN Creatinine Est GFR (CKD-EPI 2020) Glucose Calcium Magnesium Total Bilirubin AST ALT Alkaline Phosphatase Total Protein Albumin Procalcitonin Fluid Source Fluid Color Fluid Clarity Fluid WBC Fld Polynuclear WBCs % Fluid Mononuclear Cell Random Vancomycin 10.2 08/24/22 08/24/22 08/24/22 06:20 06:20 06:20 WBC RBC Hgb Hct MCV MCH MCHC RDW Plt Count MPV PT 16.2 H INR 1.6 H APTT 32.7 H VBG O2 Saturation VBG Lactate Sodium 133 L Potassium 4.8 Chloride 105 Carbon Dioxide 21.4 Anion Gap 6.6 BUN 34 H Creatinine 1.0 Est GFR (CKD-EPI 2020) 66.12 Glucose 125 H Calcium 7.6 L Magnesium 1.8 Total Bilirubin 7.5 H AST 32 ALT 9 L Alkaline Phosphatase 93 Total Protein 5.8 L Albumin 1.3 L Procalcitonin Fluid Source Fluid Color Fluid Clarity Fluid WBC Fld Polynuclear WBCs % Fluid Mononuclear Cell Random Vancomycin 08/24/22 06:20 WBC RBC Hgb Hct MCV MCH MCHC RDW Plt Count MPV PT INR APTT VBG O2 Saturation VBG Lactate 2.0 H Sodium Potassium Chloride Carbon Dioxide Anion Gap BUN Creatinine Est GFR (CKD-EPI 2020) Glucose Calcium Magnesium Total Bilirubin AST ALT Alkaline Phosphatase Total Protein Albumin Procalcitonin Fluid Source Fluid Color Fluid Clarity Fluid WBC Fld Polynuclear WBCs % Fluid Mononuclear Cell Random Vancomycin Review of Systems All systems reviewed & are unremarkable except as noted in HPI and below Time spent with patient Time spent in Critical Care: 65 Time spent in Critical care included: Chart review, Documenting critically ill care, Time at immediate bedside and Discussing critically ill care with other medical staff
[2022-08-24] MEDS: CEFEPIME 2 GM in Normal Saline 100 ML IVPB ×2 (09:01→20:19)
--- NOTE | 2022-08-24 09:39 | PGE_ITS ---
Date of Service Date of service: 08/24/22 Time of Service: 07:35 Assessment and Plan Assessment and plan (1) Septic arthritis of knee, left: Status: Acute Assessment and plan: Janice is a 56-year-old with multiple medical comorbidities who has septic arthritis of the left knee. This is likely going to be staphylococcal given gram-positive cocci in clusters although awaiting more formal culture results from the left knee. She is also bacteremic with likely the similar organism, gram-positive cocci in clusters, awaiting final cultures. This has been painful and swollen for a few weeks which does unfortunately portend a worse prognosis for curative treatment with arthroscopic washout. Nevertheless in a [place] knee situation without significant arthritic change in the x-ray nor other bony lesions on the x-ray I would recommend arthroscopic irrigation and debridement and synovectomy. I discussed this previously with her yesterday. Once again I reviewed it with her today. The biggest concern here would be the need for repeat procedure. It would take a few days to find out if this is necessary. Sometimes actually requires an open approach. Nevertheless, we will attempt this with arthroscopic intervention. Her questions were answered. She agreed to proceed. She has been NPO. Qualifiers: Septic arthritis organism: staphylococcal Qualified Code(s): M00.062 - Staphylococcal arthritis, left knee Subjective Subjective Interval history since last seen: Janice reports that she was able to sleep some last night. In general she is feeling better than she was yesterday although she still has exquisite left knee pain. Overnight she had significant improvement with her blood sugar levels as well as her sodium and potassium levels. Her blood cultures returned positive for gram-positive cocci in clusters yesterday evening as well. Cell count from the knee fluid revealed greater than 25,000 cells, predominance of PMNs. Initial Gram stain also shows gram-positive cocci in clusters within the knee fluid itself. No acute issues overnight. She is slightly fluid overloaded but draining clear urine. She denies any other pain in her right leg, right arm, or left arm. Exam Narrative Exam Narrative: Resting in the hospital bed. No acute distress. Alert and oriented x3. Brief evaluation of the left knee shows a notable effusion, warmth, swelling, and pain with palpation. No other acute changes are appreciated within the left leg. Objective Last Vital Signs Temp 36.6 C 08/24/22 04:00 Pulse 93 H 08/24/22 09:05 Resp 21 08/24/22 09:05 BP 117/48 L 08/24/22 09:05 Pulse Ox 92 08/24/22 04:00 Laboratory Results - last 24 hr 08/23/22 08/23/22 08/23/22 08:08 10:00 10:30 WBC RBC Hgb Hct MCV MCH MCHC RDW Plt Count MPV PT INR APTT VBG O2 Saturation VBG Lactate Sodium 124 L Potassium 5.9 H Chloride 95 L Carbon Dioxide 18.7 L Anion Gap 10.3 BUN 44 H Creatinine 1.7 H Est GFR (CKD-EPI 2020) 34.98 Glucose 572 H* Calcium 7.8 L Magnesium Total Bilirubin AST ALT Alkaline Phosphatase Total Protein Albumin Fluid Source L Knee Fluid Color Yellow Fluid Clarity Cloudy Fluid WBC 32473 Fld Polynuclear WBCs % 88 Fluid Mononuclear Cell 12 Random Vancomycin 08/23/22 08/23/22 08/23/22 12:09 14:00 16:15 WBC RBC Hgb Hct MCV MCH MCHC RDW Plt Count MPV PT INR APTT VBG O2 Saturation VBG Lactate Sodium 119 L* 122 L* 124 L Potassium 5.6 H 6.1 H* 5.8 H Chloride 94 L 95 L 97 L Carbon Dioxide 20.3 L 19.5 L 20.6 L Anion Gap 4.7 7.5 6.4 BUN 42 H 41 H 41 H Creatinine 1.5 H 1.6 H 1.5 H Est GFR (CKD-EPI 2020) 40.65 37.62 40.65 Glucose 484 H 517 H* 441 H Calcium 7.6 L 7.4 L 7.4 L Magnesium Total Bilirubin AST ALT Alkaline Phosphatase Total Protein Albumin Fluid Source Fluid Color Fluid Clarity Fluid WBC Fld Polynuclear WBCs % Fluid Mononuclear Cell Random Vancomycin 08/23/22 08/23/22 08/23/22 18:10 18:10 19:42 WBC RBC Hgb Hct MCV MCH MCHC RDW Plt Count MPV PT INR APTT VBG O2 Saturation VBG Lactate 2.8 H* Sodium 113 L* D 126 L D Potassium 5.5 H 5.5 H Chloride 92 L 100 Carbon Dioxide 19.8 L 20.5 L Anion Gap 1.2 L 5.5 BUN 40 H 42 H Creatinine 1.4 H 1.4 H Est GFR (CKD-EPI 2020) 44.16 44.16 Glucose 393 H 340 H Calcium 7.3 L 7.4 L Magnesium Total Bilirubin AST ALT Alkaline Phosphatase Total Protein Albumin Fluid Source Fluid Color Fluid Clarity Fluid WBC Fld Polynuclear WBCs % Fluid Mononuclear Cell Random Vancomycin 08/23/22 08/24/22 08/24/22 20:00 00:30 00:30 WBC RBC Hgb Hct MCV MCH MCHC RDW Plt Count MPV PT INR APTT VBG O2 Saturation VBG Lactate 1.8 H Sodium Cancelled 130 L Potassium Cancelled 5.7 H Chloride Cancelled 104 Carbon Dioxide Cancelled 21.3 Anion Gap Cancelled 4.7 BUN Cancelled 40 H Creatinine Cancelled 1.2 H Est GFR (CKD-EPI 2020) Cancelled 53.13 Glucose Cancelled 181 H Calcium Cancelled 7.6 L Magnesium Total Bilirubin AST ALT Alkaline Phosphatase Total Protein Albumin Fluid Source Fluid Color Fluid Clarity Fluid WBC Fld Polynuclear WBCs % Fluid Mononuclear Cell Random Vancomycin 08/24/22 08/24/22 08/24/22 06:20 06:20 06:20 WBC 10.94 H RBC 2.24 L Hgb 8.3 L Hct 24.0 L MCV 107 H D MCH 37.1 H MCHC 34.6 RDW 15.0 H Plt Count 93 L MPV 10.0 PT 16.2 H INR 1.6 H APTT 32.7 H VBG O2 Saturation VBG Lactate Sodium Potassium Chloride Carbon Dioxide Anion Gap BUN Creatinine Est GFR (CKD-EPI 2020) Glucose Calcium Magnesium Total Bilirubin AST ALT Alkaline Phosphatase Total Protein Albumin Fluid Source Fluid Color Fluid Clarity Fluid WBC Fld Polynuclear WBCs % Fluid Mononuclear Cell Random Vancomycin 10.2 08/24/22 08/24/22 08/24/22 06:20 06:20 06:20 WBC RBC Hgb Hct MCV MCH MCHC RDW Plt Count MPV PT INR APTT VBG O2 Saturation VBG Lactate 2.0 H Sodium 133 L Potassium 4.8 Chloride 105 Carbon Dioxide 21.4 Anion Gap 6.6 BUN 34 H Creatinine 1.0 Est GFR (CKD-EPI 2020) 66.12 Glucose 125 H Calcium 7.6 L Magnesium 1.8 Total Bilirubin 7.5 H AST 32 ALT 9 L Alkaline Phosphatase 93 Total Protein 5.8 L Albumin 1.3 L Fluid Source Fluid Color Fluid Clarity Fluid WBC Fld Polynuclear WBCs % Fluid Mononuclear Cell Random Vancomycin Time Spent with Patient Time Spent with Patient: 25-34 minutes Time was spent: obtaining and/or reviewing separately otained hiistory, indepentently interpreting results, counseling the patient and care coordination
--- NOTE | 2022-08-24 09:40 | ANES.PREOP_ITS ---
General Info Date of Service Date Performed: 08/24/22 Height: 5 ft 4 in Weight: 93.7 kg Body Mass Index (BMI): 35.4 Surgical Procedure: Operation Date: 08/24/22 09:35 Proposed Procedure Side Surgeon p Knee Arthroscopy Left Justin Soliz MD Meds Allergies and Home Medications Allergies Allergy/AdvReac Type Severity Reaction Status Date / Time codeine AdvReac Unknown unable to Unverified 08/22/22 21:37 take related to colon removal ibuprofen AdvReac Unknown unable to Unverified 08/22/22 21:37 take related to colon removal Home Medication Medication Instructions Recorded acetaminophen 500 mg tablet (Mapap 1 - 2 tab PO PRN PRN 08/19/15 Extra Strength) methylphenidate HCl 20 mg tablet 20 mg PO TID 05/27/17 (Ritalin) albuterol sulfate 90 mcg/actuation 2 puff inhalation .Q4-6HR PRN 01/22/20 aerosol inhaler (ProAir HFA) ferrous gluconate 256 mg (28 mg 256 mg PO BID 01/22/20 iron) tablet levalbuterol tartrate 45 2 inh inhalation .Q4-6HR 01/22/20 mcg/actuation aerosol inhaler (Xopenex HFA) calcium carbonate 1,000 mg-vitamin 1 tab PO BID 04/15/20 D3 20 mcg (800 unit) tablet magnesium chloride 64 mg 113 mg PO DAILY 06/06/20 tablet,extended release metformin 500 mg tablet 1,000 mg PO BID 06/17/20 ondansetron 4 mg disintegrating 4 mg PO Q8H PRN nausea and 05/21/21 tablet vomiting #30 tabs sulfamethoxazole 800 1 tab PO BID #14 tabs 08/09/22 mg-trimethoprim 160 mg tablet (Bactrim DS) furosemide 20 mg tablet 20 mg PO DAILY 08/22/22 spironolactone 50 mg tablet 50 mg PO DAILY 08/22/22 Current Visit Medications: Current Medications Generic Name Dose Route Start Last Admin Trade Name Freq PRN Reason Stop Dose Admin Acetaminophen 500 mg 08/23/22 11:41 Acetaminophen 500 Mg Tab PO QID PRN PRN Albuterol Sulfate 2 puff 08/23/22 07:40 Albuterol Hfa 8 Gm 60 Puff Inh IH Q4H PRN PRN Device 1 each 08/23/22 05:00 Inhaler, Assist Device MC DIRECTED RYAN Dextrose 0 gm 08/23/22 04:18 Glucose Oral Gel 15 Gm/37.5 Gm Tube PO DIRECTED PRN Dextrose/Water 0 gm 08/23/22 04:18 Dextrose 50%-Water 25 Gm/50 Ml Syr IVP DIRECTED PRN Dimethicone/Zinc Oxide 0 gm 08/23/22 04:18 Juancarlos Protect Cream 142 Gm Tube TP PRN PRN Fentanyl 50 mcg 08/23/22 11:35 Fentanyl 100 Mcg/2 Ml Vial IVP Q4H PRN PRN Gabapentin 100 mg 08/23/22 20:00 08/24/22 09:02 Gabapentin 100 Mg Cap PO Not Given BID RYAN Vancomycin/PEG/NADA/Lysine/Water 1.5 gm in 300 mls @ 200 mls/hr 08/24/22 10:00 Vancocin Injection IV Q18H RYAN Cefepime HCl 2 gm/ Sodium 100 mls @ 200 mls/hr 08/23/22 08:00 08/24/22 09:01 Chloride IVPB 200 mls/hr Q12H RYAN Administration Ringer's Solution 1,000 mls @ 150 mls/hr 08/24/22 09:45 IV INFUSION RYAN Insulin Aspart 0 units 08/24/22 12:00 Insulin Aspart 300 Units/3 Ml Pen SC 0800,1200,1700 [facility] Protocol Insulin Glargine 25 units 08/24/22 09:33 Insulin Glargine 300 Units/3 Ml Pen SC 08/24/22 09:34 NOW STA Sodium Chloride 0 ml 08/23/22 19:47 08/23/22 21:13 Normal Saline Flush 10 Ml Syr IVP 20 ml PRN PRN Administration PFSH Active Problems Active Problems: Problem Status Onset Code Septic arthritis of knee, left M00.9 Cirrhosis of liver K74.60 Hyperbilirubinemia E80.6 Hepatorenal syndrome K76.7 ELVIA (acute kidney injury) N17.9 Acute dehydration E86.0 ADHD F90.9 Crohn's disease in remission K50.90 Anemia of chronic disease D63.8 Acute exacerbation of chronic low back pain M54.5, G89.29 Back pain M54.9 Stoma bleed Chest pain R07.9 H/O malignant neoplasm of colon Z85.038 DVT prophylaxis Z29.9 Discharge planning issues Z02.9 Anemia, blood loss D50.0 GI bleed K92.2 Medical History Medical History Adjustment disorder Chronic low back pain Colon cancer Depression with anxiety Diabetes mellitus type 2 in obese GERD (gastroesophageal reflux disease) Hyposmia HADLEY (obstructive sleep apnea) PTSD (post-traumatic stress disorder) Vitamin B12 deficiency Vitamin D deficiency Surgical History Surgical History H/O ileostomy History of endometrial ablation S/P colectomy S/P D&C (status post dilation and curettage) S/P LEEP Tobacco Smoking/Tobacco Use Status: Never Alcohol Alcohol Intake: never Substance Use Substance use: Never Substance use type: does not use Vital Signs and Lab Results Vital Signs Most Recent Vital Signs in EMR: Most Recent Vital Signs Temp Pulse Resp BP Pulse Ox 36.6 C 93 H 21 117/48 L 92 08/24/22 04:00 08/24/22 09:05 08/24/22 09:05 08/24/22 09:05 08/24/22 04:00 Point of Care Results Point of Care Results: Finger Stick Blood Glucose 81 08/24/22 08:00 Lab Results 08/24/22 06:20 08/24/22 06:20 Blood Type / Crossmatch: No Data to Display Complete Blood Count: White Blood Count 10.94 10^3/uL (4.4-10.8) H 08/24/22 06:20 Red Blood Count 2.24 10^6/uL (3.93-5.22) L 08/24/22 06:20 Hemoglobin 8.3 g/dL (11.2-15.7) L 08/24/22 06:20 Hematocrit 24.0 % (36.0-46.0) L 08/24/22 06:20 Platelet Count 93 10^3/uL (130-400) L 08/24/22 06:20 Venous Blood Lactate 2.0 mmol/L (0.6-1.4) H 08/24/22 06:20 Complete Metabolic Panel: Sodium 133 mmol/L (136-145) L 08/24/22 06:20 Potassium 4.8 mmol/L (3.5-5.1) 08/24/22 06:20 Chloride 105 mmol/L (98-107) 08/24/22 06:20 Carbon Dioxide 21.4 mmol/L (21.0-32.0) 08/24/22 06:20 BUN 34 mg/dL (7-18) H 08/24/22 06:20 Creatinine 1.0 mg/dL (0.55-1.02) 08/24/22 06:20 Est GFR (CKD-EPI 2020) 66.12 (mL/min/1.73m2) 08/24/22 06:20 Magnesium 1.8 mg/dL (1.8-2.4) 08/24/22 06:20 Calcium 7.6 mg/dL (8.5-10.1) L 08/24/22 06:20 Albumin 1.3 g/dL (3.4-5.0) L 08/24/22 06:20 Glucose 125 mg/dL (74-106) H 08/24/22 06:20 C-Reactive Protein 7.86 mg/dL (0.0-0.3) H 08/23/22 08:08 Liver Function Panel: Alanine Aminotransferase (ALT/SGPT) 9 U/L (14-59) L 08/24/22 06 :20 Aspartate Amino Transf (AST/SGOT) 32 U/L (15-37) 08/24/22 06:20 Coagulation Panel: INR International Normalized Ratio 1.6 (0.9-1.1) H 08/24/22 06 :20 Prothrombin Time 16.2 sec (9.3-11.0) H 08/24/22 06:20 Activated Partial Thromboplast Time 32.7 sec (21.5-31.9) H 08/24/22 06:20 Fibrinogen Pending 08/24/22 23:59 Cardiac Panel: No Data to Display Arterial Blood Gas: No Data to Display Venous Blood Gas: Venous Blood pH 7.42 (7.31-7.41) H 08/23/22 08:08 Venous Blood Partial Pressure O2 102 mmHg 08/23/22 08:08 Venous Blood Partial Pressure CO2 30 mmHg (41-51) L 08/23/22 08 :08 Venous Blood Oxygen Saturation % 08/23/22 08:08 Venous Blood HCO3 19 mmol/L (23-28) L 08/23/22 08:08 Venous Blood Base Excess -5 mmol/L (-2-3) L 08/23/22 08:08 Venous Blood Total Carbon Dioxide > 99 mmol/L (24-29) H 3 08:08 Pancreas Panel: Lipase 32 U/L (16-77) 08/09/22 07:25 Thyroid Panel: No Data to Display Infectious Disease: No Data to Display Blood Cultures: No Data to Display Toxicology Panel: No Data to Display Imaging and Studies Imaging and Studies Study information below may be from another EMR and interpreted by another provider. Please see original notes in EMR for more complete details. EKG Summary: DATE/TIME OF SERVICE: : 1965PERFORMING LOCATION: ICU APPROVED REPORT Exam: Resting ECG Reason for Exam: hyperkalemia Patient Location: E HR:92 bpm ECG Measurements Heart Rate 92 AXIS TX 164 P 72 QRSd 99 QRS -6 QT 352 T38 QTc 436 Conclusion Sinus rhythm...normal P axis, V-rate 60- 99 sinus rhythm, normal axis, normal intervals, non ischemic Stress Test Summary: 06/23/22:MPI Conclusion Myocardial perfusion is normal. There is no ischemia or evidence of prior infarction EF 67%, normal wall motion Echocardiogram Summary: Date of Exam: 08/07/20Sex: F Admission Date: 08/07/20 : 1965 Age: 54 APPROVED REPORT EXAM: Comprehensive 2D, Doppler, and color-flow Echocardiogram Patient Location: Out-Patient Emergency Vehicle Technician: Angelina Schwartz RDCS (AE) Indications: Pre op surgical, Cirrhosis of liver Other Information Study Quality: Adequate Conclusion Normal left ventricular wall thickness and chamber size. Estimated ejection fraction is 55 to 60%. Wall motion is normal Normal right ventricular size and systolic function Both atria are normal in size There is no significant valvular disease Wall motion Anesthesia Assessment and Plan Anesthesia History Personal History: No History of Anesthesia Complications Family History: No Family History of Anesthesia Complications Exercise Tolerance Exercise Tolerance: Metabolic Equivalents>4 Pertinent Negatives Pertinent Negatives: No Symptoms of GERD, No Major Cardiovascular Symptoms or Complaints and No Major Pulmonary Symptoms or Complaints Cardiac & Pulmonary Exam Cardiac Exam: Normal S1/S2 Heart Sounds Pulmonary Exam: Clear Bilateral Breath Sounds Implantable Cardiac Device Does patient have a Pacemaker or an ICD?: No Airway Exam Known Difficult Airway: No Mallampati Class: 2 Mouth Opening: Normal (> 3cm) Thyromental Distance: Greater than 3 cm Neck Range of Motion: Full ROM Neck Circumference: Normal Teeth Condition: Normal Dentition ASA Classification ASA Score: ASA 3 Emergency Case?: No NPO Status NPO Status: NPO Clears >2 hours, Solids >8 hours Anesthesia Plan Resuscitation Status: Full Code Anesthesia Technique: General Anesthesia Airway Planned: LMA Monitors Used: Standard Monitors
[2022-08-24] MEDS: ceFAZolin 2 GM/50 ML BAG 100 GM (10:16)
[2022-08-24] MEDS: Lactated Ringers 1,000 ML 150 ML IV ×2 (10:19→15:45)
[2022-08-24 11:16] LABS: Lyme Ab w Rflx to Lyme Confirm Negative (Negative)
[2022-08-24] MEDS: VANCOMYCIN/WATER (PEG) 1.5 GM/300 ML BAG IV (11:27)
[2022-08-24] MEDS: fentaNYL 100 MCG/2 ML VIAL 50 MCG IVP (11:28)
[2022-08-24] MEDS: Insulin Glargine 300 UNITS/3 ML PEN 25 UNITS SC (11:36)
[2022-08-24] MEDS: Insulin Aspart 300 UNITS/3 ML PEN SC ×2 (11:39→17:07)
[2022-08-24] MEDS: HYDROmorphone 2 MG/ML SYR IVP (12:45)
[2022-08-24] MEDS: Ketorolac 15 MG/ML VIAL IVP (12:46)
--- NOTE | 2022-08-24 14:14 | W.ANESPOSTOP ---
Postoperative Evaluation Date, Time and Location Date Performed: 08/24/22 Time Performed: 14:14 Patient Location: Intensive Care Unit Vital Signs Most Recent Imported Vital Signs: Most Recent Vital Signs Temp Pulse Resp BP Pulse Ox 36.2 C L 61 18 108/40 L 100 08/24/22 11:44 08/24/22 13:31 08/24/22 13:31 08/24/22 13:31 08/24/22 13:31 Pain Score Most Recent Pain Score: Most Recent Pain Score Pain Level 3 08/24/22 13:44 Assessment Mental Status: Awake (Alert & Oriented to Patient Baseline) Airway and Respiratory Function: Patent airway with normal (patient baseline) respiratory exam Cardiovascular Function: Hemodynamically Stable Hydration Status: Adequately Hydrated Nausea & Vomiting: No Nausea or Vomiting Pain: Pain is tolerable per patient Peripheral Nerve Block: Patient did not receive a nerve block
--- NOTE | 2022-08-24 15:18 | PGE_ITS ---
Date of Service Date of service: 08/24/22 Time of Service: 15:19 Assessment and Plan Assessment and plan (1) Staphylococcus aureus bacteremia: Status: Acute Assessment and plan: Sepsis, present on admission. In setting of septic arthritis L knee. Await repeat blood cultures. BPs borderline - continue IVF. Consider CHIARA. Continue Vancomycin/Cefepime. Trend CRP, procalcitonin. (2) Septic arthritis of knee, left: Status: Acute Assessment and plan: S/p washout. As above Qualifiers: Septic arthritis organism: staphylococcal Qualified Code(s): M00.062 - Staphylococcal arthritis, left knee (3) ELVIA (acute kidney injury): Status: Resolved Assessment and plan: Prerenal, in setting of sepsis, resolved. (4) Anemia of chronic disease: Status: Acute Assessment and plan: Hgb down to 8.3 from 11.0 on admission and a baseline of 13. Some of this is likely dilutional. However, I'll get anemia studies. May require a transfusion. (5) Hyperbilirubinemia: Status: Acute Assessment and plan: In setting of cirrhosis, sepsis, ?shock liver. Bili is down to 7.5 from 17.5 Contiue to monitor. (6) Cirrhosis of liver: Status: Chronic Assessment and plan: Hydrate cautiously. (7) DVT prophylaxis: Status: Acute Assessment and plan: SCD given thrombocytopenia (8) Discharge planning issues: Status: Acute Assessment and plan: Full code Continues to require hospitalization Due to low BP, would keep in the ICU. Discussed with Dr Soliz and Dr Colindres. Total Critical Care Time 45 minutes. Subjective Subjective Interval history since last seen: Ms Briones c/o L knee pain post I&D today. Her blood and arthrocenthesis cultures are positive for staph aureus. Sensitivities are pending. washout cultures already are positive for GPCs as well. The patient denies dizziness, CP, SOB, n/v. Exam Narrative Exam Narrative: General: MIddle-aged female who is moaning in pain, A&Ox3 HEENT: EOMI, MMM Heart: RRR, no m/r/g Lungs: CTAB Abdomen: soft, nontender, nondistended Extremities: L knee w/ jo-wrap and cryo cuff. Objective Last Vital Signs Temp 36.2 C L 08/24/22 11:44 Pulse 79 08/24/22 14:01 Resp 16 08/24/22 14:01 BP 90/56 L 08/24/22 14:01 Pulse Ox 97 08/24/22 14:01 Laboratory Results - last 24 hr 08/22/22 08/23/22 08/23/22 23:05 10:30 16:15 WBC RBC Hgb Hct MCV MCH MCHC RDW Plt Count MPV PT INR APTT VBG Lactate Sodium 124 L Potassium 5.8 H Chloride 97 L Carbon Dioxide 20.6 L Anion Gap 6.4 BUN 41 H Creatinine 1.5 H Est GFR (CKD-EPI 2020) 40.65 Glucose 441 H Calcium 7.4 L Magnesium Total Bilirubin AST ALT Alkaline Phosphatase Total Protein Albumin Fluid Source L Knee Fluid Color Yellow Fluid Clarity Cloudy Fluid WBC 19413 Fld Polynuclear WBCs % 88 Fluid Mononuclear Cell 12 Random Vancomycin Lyme Disease Antibody Negative 08/23/22 08/23/22 08/23/22 18:10 18:10 19:42 WBC RBC Hgb Hct MCV MCH MCHC RDW Plt Count MPV PT INR APTT VBG Lactate 2.8 H* Sodium 113 L* D 126 L D Potassium 5.5 H 5.5 H Chloride 92 L 100 Carbon Dioxide 19.8 L 20.5 L Anion Gap 1.2 L 5.5 BUN 40 H 42 H Creatinine 1.4 H 1.4 H Est GFR (CKD-EPI 2020) 44.16 44.16 Glucose 393 H 340 H Calcium 7.3 L 7.4 L Magnesium Total Bilirubin AST ALT Alkaline Phosphatase Total Protein Albumin Fluid Source Fluid Color Fluid Clarity Fluid WBC Fld Polynuclear WBCs % Fluid Mononuclear Cell Random Vancomycin Lyme Disease Antibody 08/23/22 08/24/22 08/24/22 20:00 00:30 00:30 WBC RBC Hgb Hct MCV MCH MCHC RDW Plt Count MPV PT INR APTT VBG Lactate 1.8 H Sodium Cancelled 130 L Potassium Cancelled 5.7 H Chloride Cancelled 104 Carbon Dioxide Cancelled 21.3 Anion Gap Cancelled 4.7 BUN Cancelled 40 H Creatinine Cancelled 1.2 H Est GFR (CKD-EPI 2020) Cancelled 53.13 Glucose Cancelled 181 H Calcium Cancelled 7.6 L Magnesium Total Bilirubin AST ALT Alkaline Phosphatase Total Protein Albumin Fluid Source Fluid Color Fluid Clarity Fluid WBC Fld Polynuclear WBCs % Fluid Mononuclear Cell Random Vancomycin Lyme Disease Antibody 08/24/22 08/24/22 08/24/22 06:20 06:20 06:20 WBC 10.94 H RBC 2.24 L Hgb 8.3 L Hct 24.0 L MCV 107 H D MCH 37.1 H MCHC 34.6 RDW 15.0 H Plt Count 93 L MPV 10.0 PT 16.2 H INR 1.6 H APTT 32.7 H VBG Lactate Sodium Potassium Chloride Carbon Dioxide Anion Gap BUN Creatinine Est GFR (CKD-EPI 2020) Glucose Calcium Magnesium Total Bilirubin AST ALT Alkaline Phosphatase Total Protein Albumin Fluid Source Fluid Color Fluid Clarity Fluid WBC Fld Polynuclear WBCs % Fluid Mononuclear Cell Random Vancomycin 10.2 Lyme Disease Antibody 08/24/22 08/24/22 08/24/22 06:20 06:20 06:20 WBC RBC Hgb Hct MCV MCH MCHC RDW Plt Count MPV PT INR APTT VBG Lactate 2.0 H Sodium 133 L Potassium 4.8 Chloride 105 Carbon Dioxide 21.4 Anion Gap 6.6 BUN 34 H Creatinine 1.0 Est GFR (CKD-EPI 2020) 66.12 Glucose 125 H Calcium 7.6 L Magnesium 1.8 Total Bilirubin 7.5 H AST 32 ALT 9 L Alkaline Phosphatase 93 Total Protein 5.8 L Albumin 1.3 L Fluid Source Fluid Color Fluid Clarity Fluid WBC Fld Polynuclear WBCs % Fluid Mononuclear Cell Random Vancomycin Lyme Disease Antibody Objective Narrative Objective Narrative: Echo; Normal left ventricular wall thickness and chamber size.? Ejection fraction is 60 to 65%.? 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
[2022-08-24] MEDS: Lactated Ringers 500 ML IV (15:49)
--- NOTE | 2022-08-24 17:20 | PDOC.CMPRO ---
Date of service: 08/24/22 Time of Service: 17:20 Care Management Progress Note Progress Note Text Progress Note Text: S/O:Janice was lying in bed when CM met with her. She was a bit sleepy as she had gone to the OR earlier for a laparoscopic washout of her knee. She stated that she was still having pain in her knee, but that it is better. Janice remains afebrile and her vital signs are relatively stable. Her WBC has come down from yesterday but is still slightly elevated at 10.9 (normal to 10.8). She remains ICU level of care as her blood pressure has been on the low side with SBPs in the 90s to 120s. Janice has grown staphylococcus aureus in her blood and synovial fluid cultures. It is likely she will require a prolonged course of antibiotics. A: Janice is a 56 year old woman admitted on 08/23/22 with sepsis from an infected knee P:Janice will likely be discharged home when medically cleared by provider. She has S.aureus bacteremia and may need prolonged IVAB therapy. If that becomes necessary, CM will assist with the coordination of those services either through outpatient infusions, home infusions or swing bed. CM will follow and continue to assess for discharge planning needs.
--- NOTE | 2022-08-24 17:41 | IN_ITS ---
Date of service: 08/24/22 Time of Service: 14:48 PT Notes Visit Reasons: Hyperglycemia, ELVIA, Hyperkalemia Physical Therapy Inpatient Initial Evaluation Date: 08/24/2022 Referring Doctor: Justin Soliz MD PT Orders: PT CONSULT: S/P Ortho surgery. S/P L knee washout. WBAT with assistive devices. Gentle progressions Precautions: Fall. Standard. WBAT on the left LE with AD. Patient Profile/Admitting Diagnosis: Janice is a 56-year-old female with septic arthritis of the left knee, bacteremia, s/p arthroscopic irrigation and debridement with synovectomy on postoperative day 0, previous history of colectomy for colon cancer with a colostomy, [place]standing liver cirrhosis [place] [facility] [place] azotemia, hyperkalemia, hyperglycemia, and hyponatremia. PMHX: All Active Problems?(Updated 08/23/22 @ 04:03 by Denys Ortiz MD) Knee effusion (Acute) Internal derangement of knee (Acute) Hepatorenal syndrome (Acute) ELVIA (acute kidney injury) (Acute) Acute dehydration (Acute) ADHD (Acute) Crohn's disease in remission (Acute) Anemia of chronic disease (Acute) Acute exacerbation of chronic low back pain (Acute) Back pain (Acute) Stoma bleed (Acute) Chest pain (Acute) H/O malignant neoplasm of colon (Acute) DVT prophylaxis (Acute) Discharge planning issues (Acute) Anemia, blood loss (Acute) GI bleed (Chronic) Medical History? Adjustment disorder Chronic low back pain Colon cancer Depression with anxiety Diabetes mellitus type 2 in obese GERD (gastroesophageal reflux disease) Hyposmia HADLEY (obstructive sleep apnea) PTSD (post-traumatic stress disorder) Vitamin B12 deficiency Vitamin D deficiency Surgical History? happy fourth to see Wednesday yes I will see Wednesday [id number] Wednesday okay by watching H/O ileostomy History of endometrial ablation S/P colectomy S/P D&C (status post dilation and curettage) S/P LEEP Social History/Home Situation: Lives with son in a one-floor private home with 1-2 steps to enter. Has not walked since she twisted her L knee two weeks ago. Prior to that, patient was independent with all aspects of ADLs Equipment Owned/DME: FWW, SPC, BSC Subjective: Reports 10/10 pain and is not sure how much she can do with PT for this session. Agreeable to get out of bed. Mildly lightheaded but resolved with slow mo vement transitioning from supine<>sit and sit<>stand. [place] like she was leaning too far back when she stood up but sensation resolved after a couple of minutes. Objective: General Observation: Supine in bed. Telemetry monitoring in place. SCDs in place. Mental Status: Alert and oriented as to person, place, time, and purpose. Able to pay attention, focus, and respond appropriately. Speech slightly mumbled. Pain: 10/10 in L knee Vital Signs: WNL as closely monitored via tele ROM: Right Lower Extremity: Hip flexion WFL. Hip abduction WFL. Knee flexion 20 -80 degrees. Knee extension -20 degrees. Ankle dorsiflexion WFL. Ankle plantarflexion WFL. Left Lower Extremity: Hip flexion WFL. Hip abduction WFL. Knee flexion WFL. Ankle dorsiflexion WFL. Ankle plantarflexion WFL. Strength: Right Lower Extremity: Hip flexors 5/5. Hip abductors 5/5. Knee flexors 5/5. Knee extensors 5/5. Ankle dorsiflexors 4/5. Ankle plantarflexors 5/5. Left Lower Extremity: Hip flexors 4/5. Hip abductors 4/5. Knee flexors 3-/5. Knee extensors 3-/5. Ankle dorsiflexors 4/5. Ankle plantarflexors 5/5. Bed Mobility/Transfers: Supine to sit minimal assist with HOB at 45 degrees Sit to stand minimal assist with FWW, cues provided for safety Stand to sit minimal assist with FWW, cues provided for safety Bed to reclining chair minimal assist with FWW, cues provided for safety Reclining chair to bed minimal assist with FWW, cues provided for safety Gait: Instructed patient with level surface ambulation of 5-6 steps feet requiring minimal assist. Reported 10/10 pain but no moaning, no groaning, no grimacing observed/heard. Mildly compromised balance posterioly upon standing up but was able to correct self with verbal cues. Balance: Static Sitting: Good Dynamic Sitting: Fair Static Standing: Fair Dynamic Standing: Fair Special Tests: Mobility Limitations Standardized Measure [facility] AM-PAC 6 clicks Basic Mobility Inpatient Short Form: Raw Score: 18 CMS Score: 47% deficit THERA EX: Ankle DF/PF while seated x 10 Chest expansion exercises with DBE x 5 LAQ to about -20 degrees of knee extension on the L, full LAQ on R x 10 Chest expansion exercises with DBE x 5 Seated marches x 10 Chest expansion exercises with DBE x 5 Informed Consent/Education: Patient was instructed in purpose of PT consult and plan of care. Agreeable to proceed with established PT POC to achieve personal goals. ASSESSMENT: Requires use of FWW for all mobility ADL performance and assistance of 1 to maximize independence and reduce fall risk. Able to work through pain. Requires pre-medication to maximize independence and ensure safety. Impaired balance, anxiety over pain level, and difficulty walking all requires skilled services as inpatient. may require sub-acute/short-term rehab to achieve optimal functional mobility outcomes. Patient presents with clinical signs and symptoms consistent with current/admitting diagnoses that have resulted to mobility limitations, gait instability, generalized weakness, and overall ADL decline as demonstrated by the following impairment level findings: 1. Decreased strength to L hip and knee major muscle groups 2. Impaired sitting/standing balance 3. Impaired activity tolerance 4. Limitation of joint range of motion in L knee and hip 5. Pain and anxiety over pain Impairments are contributing to the following functional limitations: 1. Decline in bed mobility skills 2. Decline in transfer skills 3. Difficulty with ambulation without assistive device and physical assistance 4. Increased completion time for mobility ADL performance 5. Increased risk for falls 6. Difficulty with managing steps alone safely Patient is assessed as a 35054 moderate complexity based on the following: History: 56-year-old female with past medical history as indicated above Examination: Demonstrable impairment in strength, balance, and mobility level with underlying impairments and functional limitations as exhibited above as well as deficit score of 47% utilizing the [facility] Mobility Inpatient Short Form Presentation: Evolving Decision Makin moderate complexity Goals: Goals X1 week 1. Supine-Sit independent 2. Sit-Supine independent 3. Sit-Stand independent 4. Stand-Sit independent with FWW 5. Bed-Chair independent with FWW 6. Chair-Bed independent with FWW 7. Independent gait on level surface with use of FWW for at least 300 feet without report of pain nor dyspnea 8. Independent stair negotiation while holding onto B rails for at least 3 steps without report of pain nor dyspnea 9. Independent with home exercise program 10. Good static and dynamic standing balance/tolerance PLAN OF CARE/TREATMENT: -1-2x/day, 7 days/week x 1 week. -Plan of care has been reviewed with the CAT CRACKER OPERATOR providing the service under Physical Therapy direction. -Pre-medicate for pain. -Initiate Physical Therapy intervention for pain management as needed, strengthening, bed mobility, transfers, gait, stairs, balance training, and use of assistive device. Per orthopod, gently progress mobility. DISCHARGE RECOMMENDATIONS: [] Home with no services [] [] Home with services [specify] [] Home with outpatient PT [] [] SNF for continued rehabilitation [] [] Paleology Teacher Care [] [] SNF versus LTC based on ability to participate and progress [] [X] Subacute rehab vs. Swing bed level I vs. PT based on progress towards goals and on medical status TREATMENT CODE/TIME: 82725 x 20 minutes, 46283 x 31 minutes beginning at 14:48 PM. Thank you for the opportunity to participate in the care of this patient. Yas Lenz PT, DPT, CLT [facility] [place], [place]
[2022-08-24] MEDS: Lactated Ringers 250 ML IV (18:16)
[2022-08-24] MEDS: Acetaminophen 500 MG TAB PO (20:18)
--- NOTE | 2022-08-24 22:09 | ROE_ITS ---
Date of service: 08/24/22 Time of Service: 11:00 Operative Note Operative Note DATE OF PROCEDURE: 08/24/22 PRE-OP DIAGNOSIS: Left Knee Septic Arthritis POST-OP DIAGNOSIS: same PROCEDURE: Left Knee Arthroscopic Debridement and Synovectomy SURGEON: Justin Soliz ANESTHESIA TYPE: General LMA/ETT Refer to Anesthesia Record ESTIMATED BLOOD LOSS: 5 PATHOLOGY: none sent TOURNIQUET TIME: 0 COMPLICATIONS: None Patient was transported to: PACU Patient's condition: stable Indications: I have seen Janice in consultation from the hospitalist team for left knee pain and swelling. An aspiration of the proved septic arthritis of the left knee. Unfortunately the duration of the septic arthritis has been at least 2 weeks if not longer. Nevertheless, I recommended urgent debridement. I recommend this be done arthroscopically. I reviewed this with Janice. I discussed the risk to include bleeding, continued infection, pain, stiffness, worsening arthritis, need for repeat procedures. Despite these risks, she elects to proceed. Findings: Gross purulence was encountered within the knee. There was some abundant synovectomy but it seemed to be quite superficial. I was able to easily debride this material throughout. There is no significant cartilage abnormalities asrh reciated besides some grade 1/II changes over the medial side of the knee, mostly involving the femur. 9 L of irrigation was used throughout the knee. A synovectomy was performed anteriorly, within the medial lateral gutters, and in the suprapatellar space. Procedure Description: Janice was greeted in the preoperative holding area where the correct side was identified and marked. The consent was previously reviewed with the patient and signed. The history and physical was updated. All questions were answered. Janice was taken back to the operating room. The patient was placed into the supine position on the operating room table. All bony prominences were well padded. Prophylactic antibiotics in the form of Cefazolin were administered. The left leg was then prepped with Chloraprep and draped in a standard fashion with stockinette and extremity drape. A timeout to confirm correct identity, side and site, procedure, allergies, anesthesia, and medical concerns was performed. The leg was placed into a pneumatic leg jorge, [id number]. Prior to starting the case an aspiration was performed with 30 cc of purulent material was removed from the knee and sent to lab. Then, a standard lateral portal was made at the lateral border of the patella tendon in line with the inferior pole of the patella, soft spot. The skin and deep tissue was incised sharply and the blunt trochar was inserted atraumatically. There was notable synovitis and thickened material seen within the knee. I was able to cycle inflow and outflow few times which helped clear this and I was able to clearly see cartilage of the patella and the femur. With a view of the lateral aspect of the knee I then placed a superolateral portal to serve as a working portal but also outflow portal. This was made with spinal needle localization. A knife was used to incise the skin and deep tissues and a trocar was placed into this portal site. I then utilized a 5 mm shaver to perform the debridement and irrigation throughout the knee. Systematically went to the suprapatellar pouch removing any purulent material. There was a lot of inflamed synovium which was debrided with the shaver. This was taken down and the lateral gutter. I then moved over medially. Under visualization a medial portal was then established with a spinal needle. This now become the working portal. An aggressive anterior synovectomy was performed of any inflamed appearing synovium. Valgus stress was applied to the knee and the medial compartment was inspected. This showed some areas of grade I chondromalacia of the femur may be some focal areas of grade 2. However, there is no large chondral defects. There was no significant adherence of this purulent material or any inflamed material to the cartilage itself. No meniscal tear is appreciated. Inflamed synovium from the notch was removed. I then brought the knee into a [id number] position and inspected the lateral compartment which once again did not show any significant cartilage abnormalities. No meniscal tear. There was no significant adherence of this purulent material or inflamed tissue to the cartilage surfaces. The arthroscope was brought back into the suprapatellar pouch and the leg was in full extension. The knee was thoroughly irrigated with the arthroscopic fluid on high flow and pressure. Shaver was once again utilized to perform any residual synovectomy of any inflamed synovium. A total of 9 L of fluid was ran through the knee. Inflow was stopped and excess fluid was removed. The wounds were closed with 4-0 Nylon. They were dressed with Xeroform, 4x4 gauze, ABD pad, Kerlix and an HELENE wrap. A cryo-cuff was applied. Janice tolerated the procedure well and was returned to her room in the ICU for recovery in a stable condition suffering no known complication.
[2022-08-24] MEDS: INSULIN REGULAR IN 0.9 % NACL 100 UNIT/100 ML BAG IV (23:30)
[2022-08-25] VITALS (29 sets, daily range): BP systolic 92–112; BP diastolic 36–59; PULSE 55–92; RESP 12–23; TEMP 36.4–36.8; O2SAT 91–99
[2022-08-25] MEDS: Acetaminophen 500 MG TAB PO ×4 (00:50→19:01)
[2022-08-25] MEDS: Lactated Ringers 1,000 ML 150 ML IV ×2 (00:59→08:02)
[2022-08-25] MEDS: VANCOMYCIN/WATER (PEG) 1.5 GM/300 ML BAG IV (03:28)
[2022-08-25] MEDS: Ketorolac 15 MG/ML VIAL IVP ×2 (07:34→13:14)
[2022-08-25] MEDS: Normal Saline Flush 10 ML SYR IVP ×2 (07:35→22:02)
[2022-08-25 07:49] LABS: Abs Immature Grans 0.66 10^3/uL (0.0-0.06); HCT 22.5 % (36.0-46.0); HGB 7.8 g/dL (11.2-15.7); MCH 38.2 pg (27.0-33.0); MCHC 34.7 % (32.0-36.0); MCV 110 fL (80-95); MPV 10.4 fL (8.0-11.0); Platelet Count 102 10^3/uL (130-400); RBC 2.04 10^6/uL (3.93-5.22); RDW 15.2 % (11.7-14.6); RDW-SD 61.6 fL; WBC 11.46 10^3/uL (4.4-10.8)
[2022-08-25] MEDS: CEFEPIME 2 GM in Normal Saline 100 ML IVPB (08:05)
[2022-08-25 08:08] LABS: Anion Gap 8.7 mmol/L (3-11); BUN 49 mg/dL (7-18); C-Reactive Protein 4.11 mg/dL (0.0-0.3); CO2 18.3 mmol/L (21.0-32.0); CREATININE 1.5 mg/dL (0.55-1.02); Calcium 7.4 mg/dL (8.5-10.1); Chloride 101 mmol/L (98-107); Estimated GFR 40.65 (mL/min/1.73m2); Glucose 316 mg/dL (74-106); Magnesium 1.8 mg/dL (1.8-2.4); Potassium 5.3 mmol/L (3.5-5.1); Sodium 128 mmol/L (136-145)
[2022-08-25 08:14] LABS: Iron 51 ug/dL (50-170); Total Iron Binding Capacity 69 ug/dL (250-450); Transferrin Sat 74 % (15-50)
[2022-08-25 08:23] LABS: Absolute Monocyte Count 0.57 10^3/uL (0.1-0.8); Absolute Neutrophil Count 9.86 10^3/uL (1.2-6.7); Bands % 1; Diff Comment Manual Differential; Macrocytosis 2+; Metamyelocytes % 2; Polychromasia Present
[2022-08-25 08:34] LABS: Procalcitonin 0.7 ng/mL
[2022-08-25 08:54] LABS: Ferritin 768 ng/mL (8-252)
[2022-08-25 08:57] LABS: Vitamin B12 > 2000 pg/mL (193-986)
[2022-08-25] MEDS: Furosemide 20 MG/2 ML VIAL IVP (09:07)
[2022-08-25] MEDS: Insulin Glargine 300 UNITS/3 ML PEN 40 UNITS SC (09:14)
[2022-08-25] MEDS: Insulin Aspart 300 UNITS/3 ML PEN SC ×8 (09:15→22:01)
[2022-08-25 09:28] LABS: BE (Venous) -9 mmol/L (-2-3); HCO3 (Venous) 17 mmol/L (23-28); O2 Sat (Venous) 97 %; TCO2 (Venous) 17 mmol/L (24-29); pCO2 (Venous) 33 mmHg (41-51); pH (Venous) 7.32 (7.31-7.41); pO2 (Venous) 81 mmHg
[2022-08-25 09:31] LABS: Lactate 3.5 mmol/L (0.6-1.4)
[2022-08-25 10:16] LABS: Bilirubin Negative (Negative); Blood Small (Negative); Clarity Sl Cloudy (Clear); Glucose Negative (Negative); Ketones Negative (Negative); Leukocyte Esterase Small (Negative); Nitrite Negative (Negative); Urobilinogen 0.2 mg/dL (Up to 0.2)
[2022-08-25 10:31] LABS: Bacteria Few HPF (Negative); C & S Indicated? Yes; Casts 0-2 Hyaline LPF (Negative); Crystals Negative HPF (Negative); Epithelial Cells Few HPF (Negative); Mucus Negative (Negative)
--- NOTE | 2022-08-25 12:02 | PGE_ITS ---
Date of Service Date of service: 08/25/22 Time of Service: 12:03 Assessment and Plan Assessment and plan (1) Staphylococcus aureus bacteremia: Status: Acute Assessment and plan: Sepsis, present on admission. Fluid cx with MSSA; blood cx sensitivities are still pending. In setting of septic arthritis L knee. Await repeat blood cultures. BPs better - d/c IVF. Consider CHIARA. Will need to discuss with ID. Continue vanco until blood cultures definitively rule out MRSA. I have changed cefepime to cefazolin. Trend CRP, procalcitonin. (2) Septic arthritis of knee, left: Status: Acute Assessment and plan: S/p washout 08/24/22. As above Ok to work with PT. Qualifiers: Septic arthritis organism: staphylococcal Qualified Code(s): M00.062 - Staphylococcal arthritis, left knee (3) ELVIA (acute kidney injury): Status: Resolved Assessment and plan: Prerenal, in setting of sepsis, resolved. Cr of 1.3 is baseline. (4) Anemia of chronic disease: Status: Acute Assessment and plan: Hgb down to 7.8 today, but I think she is fluid overloaded. Resume diuresis. Does have evidence of folate deficiency - will replete. Check hematest. May require a transfusion on this admission, but does not need it today. (5) Hyperbilirubinemia: Status: Acute Assessment and plan: In setting of cirrhosis, sepsis, ?shock liver. Recheck LFTs. Obtain US RUQ. Contiue to monitor. (6) Cirrhosis of liver: Status: Chronic Assessment and plan: As above. D/c IVF. Obtain US abdomen. (7) DVT prophylaxis: Status: Acute Assessment and plan: SCD given thrombocytopenia; however, can consider starting heparin tomorrow since plts are improving. (8) Discharge planning issues: Status: Acute Assessment and plan: Full code Continues to require hospitalization Transfer out of the ICU. Subjective Subjective Interval history since last seen: Ms Briones's pain is a lot better. Denies dizziness, CP, SOB, nausea. Had a BM today. Spent the night on insulin drip but was transitioned to basal bolus insulin this morning. Exam Narrative Exam Narrative: General: Middle-aged female who is much more comfortable; very alert a nd awake, A&Ox3, slight slurring of words HEENT: EOMI, MMM Heart: RRR, no m/r/g Lungs: CTAB Abdomen: soft, nontender, nondistended, RLQ ostomy c/d/i Extremities: L knee w/ jo-wrap and cryo cuff. Objective Last Vital Signs Temp 36.7 C 08/25/22 07:48 Pulse 64 08/25/22 10:37 Resp 16 08/25/22 10:37 BP 112/36 L 08/25/22 10:37 Pulse Ox 99 08/25/22 10:37 Laboratory Results - last 24 hr 08/22/22 08/23/22 08/25/22 23:05 10:30 06:45 WBC RBC Hgb Hct MCV MCH MCHC RDW Plt Count MPV Immature Gran % Neutrophils % Band Neutrophils % Lymphocytes % Monocytes % Eosinophils % Basophils % Metamyelocytes % Nucleated RBC % Absolute Neutrophils Absolute Lymphocytes Absolute Monocytes Absolute Eosinophils Absolute Basophils RBC Morphology Polychromasia Macrocytosis VBG pH VBG pCO2 VBG pO2 VBG HCO3 VBG Total CO2 VBG O2 Saturation VBG Base Excess VBG Lactate Sodium Potassium Chloride Carbon Dioxide Anion Gap BUN Creatinine Est GFR (CKD-EPI 2020) Glucose Calcium Magnesium Iron 51 TIBC 69 L Transferrin % Sat 74 H Ferritin C-Reactive Protein Vitamin B12 Folate Procalcitonin Urine Color Urine Clarity Urine pH Ur Specific [place] Urine Protein Urine Ketones Urine Blood Urine Nitrite Urine Bilirubin Urine Urobilinogen Ur Leukocyte Esterase Urine RBC Urine WBC Ur Epithelial Cells Urine Crystals Urine Bacteria Urine Casts Urine Mucus Ur Culture Indicated? Urine Glucose Fluid Source L Knee Fluid Color Yellow Fluid Clarity Cloudy Fluid WBC [id number] Fld Polynuclear WBCs % 88 Fluid Mononuclear Cell 12 Lyme Disease Antibody Negative 08/25/22 08/25/22 08/25/22 06:45 06:45 06:45 WBC RBC Hgb Hct MCV MCH MCHC RDW Plt Count MPV Immature Gran % Neutrophils % Band Neutrophils % Lymphocytes % Monocytes % Eosinophils % Basophils % Metamyelocytes % Nucleated RBC % Absolute Neutrophils Absolute Lymphocytes Absolute Monocytes Absolute Eosinophils Absolute Basophils RBC Morphology Polychromasia Macrocytosis VBG pH VBG pCO2 VBG pO2 VBG HCO3 VBG Total CO2 VBG O2 Saturation VBG Base Excess VBG Lactate Sodium 128 L Potassium 5.3 H Chloride 101 Carbon Dioxide 18.3 L Anion Gap 8.7 BUN 49 H Creatinine 1.5 H Est GFR (CKD-EPI 2020) 40.65 Glucose 316 H Calcium 7.4 L Magnesium 1.8 Iron TIBC Transferrin % Sat Ferritin 768 H C-Reactive Protein Cancelled 4.11 H Vitamin B12 > 2000 H Folate 6.0 L Procalcitonin 0.7 Urine Color Urine Clarity Urine pH Ur Specific [place] Urine Protein Urine Ketones Urine Blood Urine Nitrite Urine Bilirubin Urine Urobilinogen Ur Leukocyte Esterase Urine RBC Urine WBC Ur Epithelial Cells Urine Crystals Urine Bacteria Urine Casts Urine Mucus Ur Culture Indicated? Urine Glucose Fluid Source Fluid Color Fluid Clarity Fluid WBC Fld Polynuclear WBCs % Fluid Mononuclear Cell Lyme Disease Antibody 08/25/22 08/25/22 08/25/22 06:45 09:20 09:20 WBC 11.46 H RBC 2.04 L Hgb 7.8 L Hct 22.5 L MCV 110 H MCH 38.2 H MCHC 34.7 RDW 15.2 H Plt Count 102 L MPV 10.4 Immature Gran % See Differential Neutrophils % 85.0 Band Neutrophils % 1 Lymphocytes % 7.0 Monocytes % 5.0 Eosinophils % 0.0 Basophils % 0.0 Metamyelocytes % 2 Nucleated RBC % 0.0 Absolute Neutrophils 9.86 H Absolute Lymphocytes 0.80 L Absolute Monocytes 0.57 Absolute Eosinophils 0.00 Absolute Basophils 0.00 RBC Morphology See Below Polychromasia Present Macrocytosis 2+ VBG pH 7.32 VBG pCO2 33 L VBG pO2 81 VBG HCO3 17 L VBG Total CO2 17 L VBG O2 Saturation 97 VBG Base Excess -9 L VBG Lactate 3.5 H* Sodium Potassium Chloride Carbon Dioxide Anion Gap BUN Creatinine Est GFR (CKD-EPI 2020) Glucose Calcium Magnesium Iron TIBC Transferrin % Sat Ferritin C-Reactive Protein Vitamin B12 Folate Procalcitonin Urine Color Urine Clarity Urine pH Ur Specific [place] Urine Protein Urine Ketones Urine Blood Urine Nitrite Urine Bilirubin Urine Urobilinogen Ur Leukocyte Esterase Urine RBC Urine WBC Ur Epithelial Cells Urine Crystals Urine Bacteria Urine Casts Urine Mucus Ur Culture Indicated? Urine Glucose Fluid Source Fluid Color Fluid Clarity Fluid WBC Fld Polynuclear WBCs % Fluid Mononuclear Cell Lyme Disease Antibody 08/25/22 09:55 WBC RBC Hgb Hct MCV MCH MCHC RDW Plt Count MPV Immature Gran % Neutrophils % Band Neutrophils % Lymphocytes % Monocytes % Eosinophils % Basophils % Metamyelocytes % Nucleated RBC % Absolute Neutrophils Absolute Lymphocytes Absolute Monocytes Absolute Eosinophils Absolute Basophils RBC Morphology Polychromasia Macrocytosis VBG pH VBG pCO2 VBG pO2 VBG HCO3 VBG Total CO2 VBG O2 Saturation VBG Base Excess VBG Lactate Sodium Potassium Chloride Carbon Dioxide Anion Gap BUN Creatinine Est GFR (CKD-EPI 2020) Glucose Calcium Magnesium Iron TIBC Transferrin % Sat Ferritin C-Reactive Protein Vitamin B12 Folate Procalcitonin Urine Color Yellow Urine Clarity Sl Cloudy Urine pH 5.0 Ur Specific [place] 1.010 Urine Protein Negative Urine Ketones Negative Urine Blood Small H Urine Nitrite Negative Urine Bilirubin Negative Urine Urobilinogen 0.2 Ur Leukocyte Esterase Small H Urine RBC 3-5 H Urine WBC 5-10 Ur Epithelial Cells Few Urine Crystals Negative Urine Bacteria Few Urine Casts 0-2 Hyaline Urine Mucus Negative Ur Culture Indicated? Yes Urine Glucose Negative Fluid Source Fluid Color Fluid Clarity Fluid WBC Fld Polynuclear WBCs % Fluid Mononuclear Cell Lyme Disease Antibody Time Spent with Patient Time Spent with Patient: 35-49 minutes Time was spent: preparing to see the patient(eg.review tests), obtaining and/or reviewing separately otained hiistory, ordering medications,tests, procedures, referring, communicating with other health career education teacher, indepentently interpreting results, counseling the patient and care coordination
--- NOTE | 2022-08-25 13:42 | PT.INTREAT ---
Date of service: 08/25/22 Time of Service: 09:40 PT Notes Visit Reasons: Hyperglycemia, ELVIA, Hyperkalemia Inpatient Physical Therapy Treatment Note [facility] Date: 08/25/2022 PRECAUTIONS: Fall, Standard,? WBAT on the left LE with AD. SUBJECTIVE: Stated she is doing better today. OBJECTIVE: PAIN: Received pain meds approximately an hour prior to PT session. Indicated she had no pain following PT activities. BED MOBILITY/TRANSFERS Rolling L/R: I Supine-sit: SBA Sit-supine: SBA Sit-stand: SBA Stand-sit: SBA GAIT Assistive Device: FWW Weight bearing: As tolerated on the left Assist: SBA Distance: 3 ft bed to chair and performed stepping in place for 30 reps VITALS: Monitored by nursing staff THEREX: Performed ankle pumps in sitting for 20 reps, LAQs on R/L for 10 reps x 2 sets, seated hip abd/adduction for 10 reps x 2 sets, seated marching for 10 reps x 2 sets, as well as working on chest expension with DBE x 5 reps between each tasks. ASSESSMENT: Doing very well with mobility today and gave great effort with her exercises. PLAN: Continue to focus on improved ADL function. TREATMENT CODE/TIME: [id number], 9:40 to 10:00 (20')
[2022-08-25 16:48] LABS: Lactate 2.4 mmol/L (0.6-1.4)
[2022-08-25 18:00] LABS: Lab Add On Test DONE
[2022-08-25 18:11] LABS: Glucose 418 mg/dL (74-106)
[2022-08-25] MEDS: ceFAZolin 2 GM/50 ML BAG IVPB (19:02)
[2022-08-25 19:31] LABS: Anaplasma phagocytophilum Negative (Negative); B. miyamotoi PCR Negative (Negative); Babesia divergens/MO-1 Negative (Negative); Babesia duncani Negative (Negative); Babesia microti Negative (Negative); Ehrlichia chaffeensis Negative (Negative); Ehrlichia ewingii/canis Negative (Negative); Ehrlichia muris eauclairensis Negative (Negative)
[2022-08-25] MEDS: Insulin Glargine 300 UNITS/3 ML PEN 60 UNITS SC (19:55)
[2022-08-25] MEDS: Lactated Ringers 1,000 ML 80 ML IV (22:02)
[2022-08-25] MEDS: Pantoprazole 40 MG VIAL IVP (22:02)
[2022-08-26] VITALS (8 sets, daily range): BP systolic 94–119; BP diastolic 45–71; PULSE 67–83; RESP 14–20; TEMP 36–37; O2SAT 94–100
[2022-08-26] MEDS: VANCOMYCIN/WATER (PEG) 1.5 GM/300 ML BAG IV (04:21)
[2022-08-26] MEDS: ceFAZolin 2 GM/50 ML BAG IVPB ×3 (06:17→20:35)
[2022-08-26] MEDS: Acetaminophen 500 MG TAB PO (06:17)
[2022-08-26 07:01] LABS: HGB 7.6 g/dL (11.2-15.7); MCH 37.8 pg (27.0-33.0); MCHC 34.5 % (32.0-36.0); MCV 110 fL (80-95); MPV 10.4 fL (8.0-11.0); Nucleated RBC 0.2 % (0.0-0.3); RBC 2.01 10^6/uL (3.93-5.22); RDW 15.1 % (11.7-14.6); RDW-SD 60.3 fL; WBC 14.42 10^3/uL (4.4-10.8)
[2022-08-26 07:19] LABS: Anion Gap 6.9 mmol/L (3-11); BUN 65 mg/dL (7-18); CO2 19.1 mmol/L (21.0-32.0); CREATININE 1.7 mg/dL (0.55-1.02); Calcium 7.5 mg/dL (8.5-10.1); Chloride 102 mmol/L (98-107); Estimated GFR 34.98 (mL/min/1.73m2); Glucose 269 mg/dL (74-106); Magnesium 1.8 mg/dL (1.8-2.4); Potassium 5.5 mmol/L (3.5-5.1); Sodium 128 mmol/L (136-145)
[2022-08-26 07:28] LABS: ALT 23 U/L (14-59); AST 50 U/L (15-37); Albumin 1.2 g/dL (3.4-5.0); Alkaline Phosphatase 125 U/L (46-116); Bilirubin, Direct 3.5 mg/dL (0.0-0.2); Bilirubin, Total 4.9 mg/dL (0.2-1.0); Total Protein 5.4 g/dL (6.4-8.2)
--- NOTE | 2022-08-26 08:00 | DI.US_ITS ---
Exam(s) US ABDOMEN LIMITED EXAM: US ABDOMEN LIMITED CLINICAL HISTORY: cirrhosis TECHNIQUE: Ultrasound abdomen performed using standard protocol. COMPARISON: US US ABDOMEN from 08/22/2021 FINDINGS: LIVER: Cirrhotic appearance. Tips in place which appears patent.. Normalechogenicity. No focal lisha er lesions are seen.. GALLBLADDER: Not well evaluated. Not well distended. No pericholecystic fluid identified. GUERRA'S SIGN: Negative. BILIARY SYSTEM: No intrahepatic or extrahepatic biliary ductal dilation. RIGHT KIDNEY: Normal size. No evidence of renal calculi. No evidence of hydronephrosis. No suspicious renal mass. No cyst identified. PANCREAS: Obscured by bowel gas. ABDOMINAL AORTA AND IVC: Visualized portions normal caliber. ASCITES: None seen. IMPRESSION: Cirrhotic appearing liver. Patent TIPS shunt. Gallbladder not well evaluated due to contracted state. DATA REPOSITORY:
[2022-08-26] MEDS: Normal Saline Flush 10 ML SYR IVP (08:21)
[2022-08-26] MEDS: Pantoprazole 40 MG VIAL IVP ×2 (08:22→20:31)
[2022-08-26 08:23] LABS: Absolute Basophil Count 0.04 10^3/uL (0.0-0.2)
[2022-08-26] MEDS: Insulin Aspart 300 UNITS/3 ML PEN SC ×6 (08:23→22:48)
[2022-08-26] MEDS: Furosemide 20 MG TAB PO (08:23)
[2022-08-26] MEDS: Folic Acid 1 MG TAB PO (08:23)
[2022-08-26] MEDS: Insulin Glargine 300 UNITS/3 ML PEN 60 UNITS SC ×2 (08:27→20:45)
[2022-08-26 08:31] LABS: Macrocytosis 2+; Platelet Count 99 10^3/uL (130-400)
[2022-08-26 08:32] LABS: Basophilic Stippling Present; Polychromasia Present
[2022-08-26 08:42] LABS: Diff Comment Manual Differential
[2022-08-26 08:43] LABS: Absolute Lymphocyte Count 0.87 10^3/uL (1.2-3.4); Absolute Monocyte Count 0.29 10^3/uL (0.1-0.8); Absolute Neutrophil Count 11.82 10^3/uL (1.2-6.7); Atypical Lymphocytes % 1; Bands % 2; Metamyelocytes % 5; Myelocytes % 4
[2022-08-26 08:44] LABS: Absolute Eosinophil Count 0.14 10^3/uL (0.0-0.7)
--- NOTE | 2022-08-26 10:10 | PDOC.CMPRO ---
Date of service: 08/26/22 Time of Service: 10:11 Care Management Progress Note Progress Note Text Progress Note Text: S/O:Janice was sitting up in bed when CM met with her. CM learned today that her son Fabricio Lainez has been staying at the hospital 14/09 in the waiting room or in Janice' room. Apparently he is court ordered to remain in her custody at all times as a condition of release from group home. There was much discussion today as the [facility] visiting policy had recently changed and was not widely distributed. Janice and Fabricio had been told that he would not be able to stay past 8pm as that is when visiting hours end. As it turns out, with the new policy, visitation has no set hours so he will be allowed to stay. Clinically, Janice is doing better. She reports less pain and is able to move and bear weight. Her WBC remains elevated but her CRP has decreased and she remains afebrile. Janice worked with PT yesterday, but declined to do so today. This morning she was waiting to see if she needed a transfusion and this afternoon told the FIELD CONTACT TECHNICIAN that she was too frustrated and stressed out to do PT. Janice raised some concerns about her care and CM informed the [employer] of nursing director about the issues identified. A: Janice is a 56 year old woman admitted on 08/23/22 with sepsis from an infected knee P:Janice will likely be discharged home when medically cleared by provider. She has S.aureus bacteremia and may need prolonged IVAB therapy. If that becomes necessary, CM will assist with the coordination of those services either through outpatient infusions, home infusions or swing bed. CM will follow and continue to assess for discharge planning needs.
[2022-08-26] MEDS: Acetaminophen Solution 650 MG/20.3 ML CUP PO ×2 (12:08→18:09)
--- NOTE | 2022-08-26 12:41 | W.PM.PROGNOT ---
Date of Service Date of service: 08/26/22 Time of Service: 12:41 Assessment and Plan Assessment and plan (1) Septic arthritis of knee, left: Status: Acute Assessment and plan: Janice is doing well postop day #2 from arthroscopic washout/debridement of her left knee. She was encouraged to continue with physical therapy not only with range of motion but with weightbearing as well. She will also continue her antibiotics as planned watching serial CRP labs as well to ensure continued resolution of sepsis and the septic arthritis of her left knee. Qualifiers: Septic arthritis organism: staphylococcal Qualified Code(s): M00.062 - Staphylococcal arthritis, left knee Subjective Subjective Interval history since last seen: Janice postop day #2 for an arthroscopic washout/debridement of her left knee for septic arthritis of the left knee, and she is doing very well. She states that her knee is much more comfortable now than it was prior to surgery. She does have some minimal discomfort for which she is asking for Tylenol. She has been working with physical therapy and motion of her knee as well as weightbearing on her knee is much more comfortable than it was prior to surgery. She is using Cryo/Cuff for comfort as well. Exam Narrative Exam Narrative: Brief exam of the left knee while in the Cryo/Cuff shows that the dressing is intact without evidence of drainage. She is able to passively move her knee from 0 to 90 degrees getting some slight discomfort after 90 degrees. No pain throughout the knee to palpation. Objective Last Vital Signs Temp 97.2 F L 08/26/22 10:36 Pulse 71 08/26/22 10:36 Resp 14 08/26/22 01:48 BP 119/71 08/26/22 10:36 Pulse Ox 98 08/26/22 10:36 Laboratory Results - last 24 hr 08/22/22 08/23/22 08/25/22 23:05 10:30 12:30 WBC RBC Hgb Hct MCV MCH MCHC RDW Plt Count MPV Immature Gran % Neutrophils % Band Neutrophils % Lymphocytes % Atypical Lymphs % Monocytes % Eosinophils % Basophils % Metamyelocytes % Myelocytes % Nucleated RBC % Absolute Neutrophils Absolute Lymphocytes Absolute Monocytes Absolute Eosinophils Absolute Basophils RBC Morphology Polychromasia Basophilic Stippling Macrocytosis VBG Lactate Cancelled Sodium Potassium Chloride Carbon Dioxide Anion Gap BUN Creatinine Est GFR (CKD-EPI 2020) Glucose Calcium Magnesium Total Bilirubin Conjugated Bilirubin AST ALT Alkaline Phosphatase Total Protein Albumin B. divergens/MO-1 PCR Negative Babesia duncani (PCR) Negative Babesia microti DNA PCR Negative E.chaffeensis DNA (PCR) Negative E.ewingii/canis DNA PCR Negative E.muris eauclairensis (PCR) Negative Path Cons Comment A. phagocytophilum (PCR) Negative Blood B. miyamotoi (PCR) Negative Add-On Test Request 08/25/22 08/25/22 08/25/22 16:37 16:37 16:37 WBC RBC Hgb Hct MCV MCH MCHC RDW Plt Count MPV Immature Gran % Neutrophils % Band Neutrophils % Lymphocytes % Atypical Lymphs % Monocytes % Eosinophils % Basophils % Metamyelocytes % Myelocytes % Nucleated RBC % Absolute Neutrophils Absolute Lymphocytes Absolute Monocytes Absolute Eosinophils Absolute Basophils RBC Morphology Polychromasia Basophilic Stippling Macrocytosis VBG Lactate 2.4 H* Sodium Potassium Chloride Carbon Dioxide Anion Gap BUN Creatinine Est GFR (CKD-EPI 2020) Glucose 418 H Calcium Magnesium Total Bilirubin Conjugated Bilirubin AST ALT Alkaline Phosphatase Total Protein Albumin B. divergens/MO-1 PCR Babesia duncani (PCR) Babesia microti DNA PCR E.chaffeensis DNA (PCR) E.ewingii/canis DNA PCR E.muris eauclairensis (PCR) Path Cons Comment A. phagocytophilum (PCR) Blood B. miyamotoi (PCR) Add-On Test Request DONE 08/26/22 08/26/22 08/26/22 06:00 06:00 06:00 WBC 14.42 H RBC 2.01 L Hgb 7.6 L Hct 22.0 L MCV 110 H MCH 37.8 H MCHC 34.5 RDW 15.1 H Plt Count 99 L MPV 10.4 Immature Gran % See Differential Neutrophils % 80.0 Band Neutrophils % 2 Lymphocytes % 5.0 Atypical Lymphs % 1 Monocytes % 2.0 Eosinophils % 1.0 Basophils % 0.0 Metamyelocytes % 5 Myelocytes % 4 Nucleated RBC % 0.2 Absolute Neutrophils 11.82 H Absolute Lymphocytes 0.87 L Absolute Monocytes 0.29 Absolute Eosinophils 0.14 Absolute Basophils 0.04 RBC Morphology See Below Polychromasia Present Basophilic Stippling Present Macrocytosis 2+ VBG Lactate Sodium 128 L Potassium 5.5 H Chloride 102 Carbon Dioxide 19.1 L Anion Gap 6.9 BUN 65 H Creatinine 1.7 H Est GFR (CKD-EPI 2020) 34.98 Glucose 269 H Calcium 7.5 L Magnesium 1.8 Total Bilirubin 4.9 H Conjugated Bilirubin 3.5 H AST 50 H ALT 23 Alkaline Phosphatase 125 H Total Protein 5.4 L Albumin 1.2 L B. divergens/MO-1 PCR Babesia duncani (PCR) Babesia microti DNA PCR E.chaffeensis DNA (PCR) E.ewingii/canis DNA PCR E.muris eauclairensis (PCR) Path Cons Comment A. phagocytophilum (PCR) Blood B. miyamotoi (PCR) Add-On Test Request Time Spent with Patient Time Spent with Patient: <25 minutes Time was spent: counseling the patient and care coordination
[2022-08-26 13:57] LABS: HCT 26.2 % (36.0-46.0); HGB 8.9 g/dL (11.2-15.7)
--- NOTE | 2022-08-26 14:31 | CHAPLAIN ---
Janice was resting in bed when I visited. I explained my role and offered support. She had two people visiting. Janice asked for some fresh ice water so I was able to get that for her. I will continue to visit. Janice is waiting to here if she'll need IV antibiotics, need to swing here, or take oral meds at home.
--- NOTE | 2022-08-26 15:35 | PT.INNT ---
Date of service: 08/26/22 Time of Service: 09:52 PT Notes Visit Reasons: Hyperglycemia, ELVIA, Hyperkalemia Patient states she is waiting to find out if she needs a blood transfusion, wants to wait until afternoon for therapy. Declines at 13:08 and at 15:20 refuses therapy because she is too frustrated and stressed out. States she will participate in therapy tomorrow but is not interested in doing any moving today beyond the ankle pumps she has already been doing on her own.
[2022-08-26 16:33] LABS: Vancomycin, Random 31.5 ug/mL
[2022-08-26 19:24] LABS: Fibrinogen 186 mg/dL (171-384)
--- NOTE | 2022-08-26 19:59 | W.PM.PROGNOT ---
Date of Service Date of service: 08/26/22 Time of Service: 19:59 Subjective Subjective Interval history since last seen: Patient is here for a left knee septic arthritis. She is getting cefazolin and vancomycin as scheduled. She has multiple complaints today including not getting enough attention from the nurses. She says her Tovar catheter overflowed and her colostomy was not changed promptly. There is also concern that her son who is on parole has been staying here in the hospital continuously. At 1 point she said if he does not stay then she is going to leave AGAINST MEDICAL ADVICE. This gradually calm down and thus far she is willing to stay and receive medical therapies. She has been intermittently upset throughout the day. Overnight output from her colostomy was heme positive. Her Toradol was stopped and she was started on IV Protonix twice a day. Today's hemoglobin was low at 7.6. She was asymptomatic with this. She had an abdominal ultrasound today. Her blood cultures are positive for gram-positive cocci in clusters both bottles. Exam Narrative Exam Narrative: On exam she is in moderate distress mostly upset about care issues. When focusing on her health issues she is much less distracted. She states the pain in her left knee is 100% better. She is just getting OTC medications at this time. Her abdominal ultrasound today showed cirrhosis of the liver and evidence of her TI PS stent. Her hemoglobin from this morning was 7.6, this was repeated 5 hours later and came back at 8.9. There is not been gross bleeding from her colostomy. Objective Last Vital Signs Temp 37 C 08/26/22 19:51 Pulse 67 08/26/22 19:51 Resp 16 08/26/22 19:51 BP 100/50 L 08/26/22 19:51 Pulse Ox 99 08/26/22 19:51 Laboratory Results - last 24 hr 08/22/22 08/23/22 08/26/22 23:05 10:30 06:00 WBC RBC Hgb Hct MCV MCH MCHC RDW Plt Count MPV Immature Gran % Neutrophils % Band Neutrophils % Lymphocytes % Atypical Lymphs % Monocytes % Eosinophils % Basophils % Metamyelocytes % Myelocytes % Nucleated RBC % Absolute Neutrophils Absolute Lymphocytes Absolute Monocytes Absolute Eosinophils Absolute Basophils RBC Morphology Polychromasia Basophilic Stippling Macrocytosis Sodium 128 L Potassium 5.5 H Chloride 102 Carbon Dioxide 19.1 L Anion Gap 6.9 BUN 65 H Creatinine 1.7 H Est GFR (CKD-EPI 2020) 34.98 Glucose 269 H Calcium 7.5 L Magnesium 1.8 Total Bilirubin Conjugated Bilirubin AST ALT Alkaline Phosphatase Total Protein Albumin Random Vancomycin B. divergens/MO-1 PCR Negative Babesia duncani (PCR) Negative Babesia microti DNA PCR Negative E.chaffeensis DNA (PCR) Negative E.ewingii/canis DNA PCR Negative E.muris eauclairensis (PCR) Negative Path Cons Comment A. phagocytophilum (PCR) Negative Blood B. miyamotoi (PCR) Negative 08/26/22 08/26/22 08/26/22 06:00 06:00 13:30 WBC 14.42 H RBC 2.01 L Hgb 7.6 L 8.9 L Hct 22.0 L 26.2 L MCV 110 H MCH 37.8 H MCHC 34.5 RDW 15.1 H Plt Count 99 L MPV 10.4 Immature Gran % See Differential Neutrophils % 80.0 Band Neutrophils % 2 Lymphocytes % 5.0 Atypical Lymphs % 1 Monocytes % 2.0 Eosinophils % 1.0 Basophils % 0.0 Metamyelocytes % 5 Myelocytes % 4 Nucleated RBC % 0.2 Absolute Neutrophils 11.82 H Absolute Lymphocytes 0.87 L Absolute Monocytes 0.29 Absolute Eosinophils 0.14 Absolute Basophils 0.04 RBC Morphology See Below Polychromasia Present Basophilic Stippling Present Macrocytosis 2+ Sodium Potassium Chloride Carbon Dioxide Anion Gap BUN Creatinine Est GFR (CKD-EPI 2020) Glucose Calcium Magnesium Total Bilirubin 4.9 H Conjugated Bilirubin 3.5 H AST 50 H ALT 23 Alkaline Phosphatase 125 H Total Protein 5.4 L Albumin 1.2 L Random Vancomycin B. divergens/MO-1 PCR Babesia duncani (PCR) Babesia microti DNA PCR E.chaffeensis DNA (PCR) E.ewingii/canis DNA PCR E.muris eauclairensis (PCR) Path Cons Comment A. phagocytophilum (PCR) Blood B. miyamotoi (PCR) 08/26/22 16:05 WBC RBC Hgb Hct MCV MCH MCHC RDW Plt Count MPV Immature Gran % Neutrophils % Band Neutrophils % Lymphocytes % Atypical Lymphs % Monocytes % Eosinophils % Basophils % Metamyelocytes % Myelocytes % Nucleated RBC % Absolute Neutrophils Absolute Lymphocytes Absolute Monocytes Absolute Eosinophils Absolute Basophils RBC Morphology Polychromasia Basophilic Stippling Macrocytosis Sodium Potassium Chloride Carbon Dioxide Anion Gap BUN Creatinine Est GFR (CKD-EPI 2020) Glucose Calcium Magnesium Total Bilirubin Conjugated Bilirubin AST ALT Alkaline Phosphatase Total Protein Albumin Random Vancomycin 31.5 B. divergens/MO-1 PCR Babesia duncani (PCR) Babesia microti DNA PCR E.chaffeensis DNA (PCR) E.ewingii/canis DNA PCR E.muris eauclairensis (PCR) Path Cons Comment A. phagocytophilum (PCR) Blood B. miyamotoi (PCR) Objective Narrative Objective Narrative: Left knee septic arthritis. Continue cefazolin and vancomycin. Sensitivities to the Staph aureus from the wound shows it is sensitive to oxacillin as well as vancomycin. The blood culture results are still pending sensitivity and identification. GI bleed. She had heme positive stool output and a low hemoglobin which seems to have rebounded. Avoiding transfusion at this time. She will likely need some further work-up for this GI bleeding including endoscopy through her colostomy site. Continue PPI therapy and avoid NSAID medications for now. Time Spent with Patient Time Spent with Patient: 35-49 minutes Time was spent: preparing to see the patient(eg.review tests), obtaining and/or reviewing separately otained hiistory, ordering medications,tests, procedures, referring, communicating with other health customer care specialist, indepentently interpreting results, counseling the patient and care coordination
[2022-08-27] VITALS (8 sets, daily range): BP systolic 94–121; BP diastolic 57–70; PULSE 63–82; RESP 14–18; TEMP 36.4–37.3; O2SAT 96–98
[2022-08-27] MEDS: ceFAZolin 2 GM/50 ML BAG IVPB ×2 (03:52→12:47)
[2022-08-27] MEDS: Acetaminophen Solution 650 MG/20.3 ML CUP PO ×2 (05:52→18:46)
[2022-08-27 06:24] LABS: HCT 23.2 % (36.0-46.0); MCH 37.2 pg (27.0-33.0); MCHC 34.5 % (32.0-36.0); MCV 108 fL (80-95); MPV 9.6 fL (8.0-11.0); Platelet Count 101 10^3/uL (130-400); RBC 2.15 10^6/uL (3.93-5.22); RDW 15.8 % (11.7-14.6)
[2022-08-27 06:38] LABS: Anion Gap 7.7 mmol/L (3-11); BUN 48 mg/dL (7-18); CO2 21.3 mmol/L (21.0-32.0); CREATININE 1.3 mg/dL (0.55-1.02); Calcium 7.5 mg/dL (8.5-10.1); Chloride 107 mmol/L (98-107); Estimated GFR 48.26 (mL/min/1.73m2); Glucose 154 mg/dL (74-106); Potassium 4.6 mmol/L (3.5-5.1); Sodium 136 mmol/L (136-145)
[2022-08-27 07:30] LABS: Absolute Neutrophil Count 12.38 10^3/uL (1.2-6.7); Bands % 2
[2022-08-27 07:31] LABS: Absolute Lymphocyte Count 1.65 10^3/uL (1.2-3.4); Metamyelocytes % 5
[2022-08-27 07:32] LABS: Absolute Eosinophil Count 0.17 10^3/uL (0.0-0.7); Absolute Monocyte Count 0.17 10^3/uL (0.1-0.8); Atypical Lymphocytes % 0; Diff Comment Manual Differential; Myelocytes % 5; Promyelocytes % 3
[2022-08-27 07:33] LABS: Basophilic Stippling Present; Macrocytosis 2+; Polychromasia Present
[2022-08-27] MEDS: Folic Acid 1 MG TAB PO (08:26)
[2022-08-27 08:27] LABS: Lab Add On Test DONE
[2022-08-27] MEDS: Insulin Aspart 300 UNITS/3 ML PEN SC ×7 (08:28→21:45)
[2022-08-27] MEDS: Insulin Glargine 300 UNITS/3 ML PEN 60 UNITS SC ×2 (08:29→21:45)
[2022-08-27] MEDS: Pantoprazole 40 MG VIAL IVP ×2 (08:30→21:45)
[2022-08-27 08:36] LABS: Albumin 1.2 g/dL (3.4-5.0)
--- NOTE | 2022-08-27 09:58 | PT.INTREAT ---
PT Notes Visit Reasons: Hyperglycemia, ELVIA, Hyperkalemia Date: 08/27/2022 PRECAUTIONS: Fall, Standard,? WBAT on the left LE with AD. SUBJECTIVE: Pt in bed when approached for therapy this morning, pt reports the knee is alittle painful but agreed to participating with therapy. pt seen for a second time in the afternoon, pt agreed to participating with therapy. OBJECTIVE: ? PAIN: 3/10. ? BED MOBILITY/TRANSFERS? Rolling L/R: Supervision Supine-sit: Supervision? Sit-supine: Supervision? Sit-stand:? SBA ? Stand-sit: SBA? GAIT? Assistive Device: FWW ? Weight bearing: As tolerated on the left Assist: SBA ? Distance:? 300' ? VITALS:? Monitored by nursing staff ? THEREX: AM-Performed ankle pumps in sitting for 20 reps, LAQs on R/L for 10 reps x 2 sets, seated hip abd/adduction for 10 reps x 2 sets, seated marching for 10 reps x 2 sets, as well as working on chest expension with DBE x 5 reps between each tasks. PM-In bed doing SLR [id number], hip abduction/adduction [id number], heel slide [id number], supine clamshells 45h1mfr, ankle pumps [id number], supine to EOB supervision static sitting unsupported 5mins, with weight shifting L/R, front and back, sit to stand supervision, static standing 1.5mins, bed mobility going back in bed supervision. ? ASSESSMENT:?pt had positive bleeding upon standing and required nurse to access situation requiring pt to sit unsupported by the EOB for ~10mins, pt able to perform weight shifting, seated Quad sets, marching while waiting for nurse to assess. bleeding came from open boil situated in pt lower abdominal right quarter. pt able to continue with gait training after getting bandaged by nurse. pt repositioned in bed, compression setup A post session. PLAN: Continue with balance training, global strengthening and general conditioning for improved safety, mobility and activity tolerance. TREATMENT CODE/TIME: 30707 Therapeutic Activityx3, 27079 Gait training(9:23 to 9:53am- 2:10-2:33pm)
--- NOTE | 2022-08-27 11:32 | PDOC.CMPRO ---
Date of service: 08/27/22 Time of Service: 11:32 Care Management Progress Note Progress Note Text Progress Note Text: S/O:Janice was sitting up in bed when CM met with her. She was smiling and visiting with family. Janice stated that she is feeling much better and that she was able to walk with PT today. She was pleased as she was unable to do so yesterday and was concerned she would have more difficulty. Janice also shared that without the drama, she was having a much better day. CM informed Janice that she would likely need a prolonged (6-8 week) course of IVAB. Janice indicated that she was aware and hoped that she would be able to receive the treatment at home. CM informed her that if it was possible, efforts would be made to reach that goal. Potential barriers to home infusion may include the specific antibiotic, frequency of administration, cost, and insurance approval, as well as her clinical course. CM will continue to follow. A: Janice is a 56 year old woman admitted on 08/23/22 with sepsis from an infected knee P:Janice has S.aureus bacteremia and will need prolonged IVAB therapy (6-8 weeks). possible. CM will assist with the coordination of those services either through outpatient infusions, home infusions or swing bed. Janice' preference would be to do home infusions. CM will follow and continue to assess for discharge planning needs.
[2022-08-27] MEDS: VANCOMYCIN/WATER (PEG) 1 GM/200 ML BAG IV (13:17)
--- NOTE | 2022-08-27 17:33 | PGE_ITS ---
Date of Service Date of service: 08/27/22 Time of Service: 17:33 Assessment and Plan Assessment and plan (1) Staphylococcus aureus bacteremia: Status: Acute Assessment and plan: Sepsis, present on admission. Due to MSSA with evidence of septic arthritis L knee. Blood cx 08/23, 08/25 positive. Repeated this morning. TTE w/o evidence of vegetations. Consider CHIARA. Change abx to oxacillin. Trend CRP, procalcitonin. COnsider pritchett-CT. Consider ID consult if WBC continues to climb and no clear reason identifiable. (2) Septic arthritis of knee, left: Status: Acute Assessment and plan: S/p washout 08/24/22. As above Continue working with PT. Qualifiers: Septic arthritis organism: staphylococcal Qualified Code(s): M00.062 - Staphylococcal arthritis, left knee (3) ELVIA (acute kidney injury): Status: Resolved Assessment and plan: Prerenal, in setting of sepsis, resolved. Cr of 1.3 is baseline. Resume diuretics (4) Anemia of chronic disease: Status: Acute Assessment and plan: Hgb was up to 8.9 yesterday afternoon, but back down to 8.0 which is around where she has been. Heme positive. Replete folate. May require a transfusion on this admission, but does not need it today. (5) Hyperbilirubinemia: Status: Acute Assessment and plan: In setting of cirrhosis, sepsis, ?shock liver. US RUQ shows a functional TIPS. Continue to monitor. (6) Cirrhosis of liver: Status: Chronic Assessment and plan: As above. Resume diuretics (7) DVT prophylaxis: Status: Acute Assessment and plan: SCD given thrombocytopenia and heme positive stools (8) Discharge planning issues: Status: Acute Assessment and plan: Full code Continues to require hospitalization Subjective Subjective Interval history since last seen: Ms Rivers is feeling better today. She denies dizziness, CP, SOB, nausea. Her L knee hurts. She states there was a pimple that had expressed pus earlier today in her R groin; she has no other painful areas. She has been walking with PT. She would like to get her agee catheter out. We discussed her persistently positive blood cultures and the change in her antibiotics and the plan to obtain a pritchett-CT if her leucocytosis does not improve tomorrow. Exam Narrative Exam Narrative: General: Middle-aged female who is A&Ox3, resting comfortably in bed, appears to be feeling better HEENT: EOMI, MMM Heart: RRR, +FREDY which I appreciate clearly today (the patient states she has had since she was a child). Lungs: CTAB Abdomen: soft, nontender, nondistended, RLQ ostomy c/d/i Extremities: L knee w/ jo-wrap, trace edema L foot/ankle Objective Last Vital Signs Temp 37.3 C 08/27/22 15:31 Pulse 82 08/27/22 15:31 Resp 14 08/27/22 15:31 BP 121/70 08/27/22 15:31 Pulse Ox 97 08/27/22 15:31 Laboratory Results - last 24 hr 08/24/22 08/27/22 08/27/22 19:53 06:00 06:00 WBC 16.50 H RBC 2.15 L Hgb 8.0 L Hct 23.2 L MCV 108 H MCH 37.2 H MCHC 34.5 RDW 15.8 H Plt Count 101 L MPV 9.6 Immature Gran % 0.0 Neutrophils % 73.0 Band Neutrophils % 2 Lymphocytes % 10.0 Atypical Lymphs % 0 Monocytes % 1.0 Eosinophils % 1.0 Basophils % 0.0 Metamyelocytes % 5 Myelocytes % 5 Promyelocytes % 3 Nucleated RBC % 1.0 H Absolute Neutrophils 12.38 H Absolute Lymphocytes 1.65 Absolute Monocytes 0.17 Absolute Eosinophils 0.17 Absolute Basophils 0.00 RBC Morphology See Below Polychromasia Present Basophilic Stippling Present Macrocytosis 2+ Fibrinogen 186 Sodium 136 Potassium 4.6 Chloride 107 Carbon Dioxide 21.3 Anion Gap 7.7 BUN 48 H Creatinine 1.3 H Est GFR (CKD-EPI 2020) 48.26 Glucose 154 H Calcium 7.5 L Albumin Add-On Test Request 08/27/22 08/27/22 06:00 08:27 WBC RBC Hgb Hct MCV MCH MCHC RDW Plt Count MPV Immature Gran % Neutrophils % Band Neutrophils % Lymphocytes % Atypical Lymphs % Monocytes % Eosinophils % Basophils % Metamyelocytes % Myelocytes % Promyelocytes % Nucleated RBC % Absolute Neutrophils Absolute Lymphocytes Absolute Monocytes Absolute Eosinophils Absolute Basophils RBC Morphology Polychromasia Basophilic Stippling Macrocytosis Fibrinogen Sodium Potassium Chloride Carbon Dioxide Anion Gap BUN Creatinine Est GFR (CKD-EPI 2020) Glucose Calcium Albumin 1.2 L Add-On Test Request DONE Time Spent with Patient Time Spent with Patient: 25-34 minutes Time was spent: preparing to see the patient(eg.review tests), obtaining and/or reviewing separately otained hiistory, ordering medications,tests, procedures, referring, communicating with other health client care specialist, indepentently interpreting results, counseling the patient and care coordination
--- NOTE | 2022-08-27 18:50 | NUR.NOTE ---
Tovar cath was removed as ordered. Patient tolerated procedure well. Nursing Note:
--- NOTE | 2022-08-28 | DI.CT_ITS ---
Exam(s) CT CHEST PE CTA EXAM: CT CHEST PE CTA CLINICAL HISTORY: pleuritic chest pain. TECHNIQUE: Imaging Protocol: Axial CT angiography was performed with multi-slice acquisition and mu lti-planar reconstructions as well as axial, coronal and sagittal MIP reconstructions. CONTRAST MATERIAL: Intravenous: Omnipaque 350 Contrast volume:100 ml COMPARISON: CT CT RENAL COLIC WO from 05/21/2021 CT,NM,TMT NM MPI REST STRESS GRP from 06/23/2022 FINDINGS: Pulmonary Arteries: No evidence of filling defect to suggest pulmonary emboli. Tracheobronchial tree: Patent where visualized. Mediastinum and Shanice: No dominant adenopathy or fluid collection. Pulmonary parenchyma: Small area of peripheral scarring in the left upper lobe. No consolidation or dominant measurable mass. Pleura: No effusion or pneumothorax. Heart: The heart is not dilated. No coronary artery calcifications are seen. Aorta: Thoracic aorta non-dilated. No aneurysm. No dissection. Upper abdomen: Tips. Cirrhotic liver. Small amount of ascites. Enlarged spleen. Choledochal lith iasis. No gallbladder distension. Bones: Unremarkable for age. IMPRESSION: No evidence of pulmonary embolism. No acute abnormality in the chest. RADIATION DOSE DELIVERED: 512.67mGy.cm Total DLP DATA REPOSITORY: All CT scans at this facility are submitted to the National Radiology Data Registry (NRDR) Dose Index Registry (DIR) with the [employer] ([employer]). RADIATION OPTIMIZATION: All CT scans at this facility use at least one of these dose optimization te chniques: automated exposure control; mA and/or kV adjustment per patient size (includes targeted exa ms where dose is matched to clinical indication); or iterative reconstruction.
[2022-08-28 01:32] VITALS: BP 102/52; PULSE 75; RESP 18; TEMP 37.1; O2SAT 97
[2022-08-28] MEDS: Acetaminophen Solution 650 MG/20.3 ML CUP PO ×3 (05:06→17:33)
[2022-08-28 07:46] LABS: Abs Immature Grans 1.26 10^3/uL (0.0-0.06); Absolute Basophil Count 0.03 10^3/uL (0.0-0.2); Absolute Eosinophil Count 0.08 10^3/uL (0.0-0.7); Absolute Lymphocyte Count 1.07 10^3/uL (1.2-3.4); Absolute Monocyte Count 1.32 10^3/uL (0.1-0.8); Absolute Neutrophil Count 9.43 10^3/uL (1.2-6.7); Basophils % 0.2; Eosinophils % 0.6; HCT 22.9 % (36.0-46.0); HGB 7.7 g/dL (11.2-15.7); Immature Grans % 9.6; Lymphocytes % 8.1; MCH 37.9 pg (27.0-33.0); MCHC 33.6 % (32.0-36.0); MCV 113 fL (80-95); MPV 10.1 fL (8.0-11.0); Neutrophils % 71.5; Nucleated RBC 0.4 % (0.0-0.3); RBC 2.03 10^6/uL (3.93-5.22); RDW 16.9 % (11.7-14.6); RDW-SD 67.1 fL; WBC 13.19 10^3/uL (4.4-10.8)
[2022-08-28 08:20] LABS: Platelet Count 63 10^3/uL (130-400)
[2022-08-28 08:21] LABS: Diff Comment Diff Reviewed
[2022-08-28 08:22] LABS: Anion Gap 6.1 mmol/L (3-11); BUN 37 mg/dL (7-18); C-Reactive Protein 2.53 mg/dL (0.0-0.3); CO2 20.9 mmol/L (21.0-32.0); Calcium 7.6 mg/dL (8.5-10.1); Chloride 112 mmol/L (98-107); Estimated GFR 66.12 (mL/min/1.73m2); Glucose 111 mg/dL (74-106); Macrocytosis 2+; Magnesium 1.7 mg/dL (1.8-2.4); Polychromasia Present; Potassium 4.5 mmol/L (3.5-5.1); Sodium 139 mmol/L (136-145)
[2022-08-28 08:25] LABS: Procalcitonin 0.5 ng/mL
[2022-08-28] MEDS: Folic Acid 1 MG TAB PO (09:18)
[2022-08-28] MEDS: Furosemide 20 MG TAB PO (09:18)
[2022-08-28] MEDS: Insulin Aspart 300 UNITS/3 ML PEN SC ×6 (09:19→21:27)
[2022-08-28] MEDS: Spironolactone 50 MG TAB PO (09:21)
[2022-08-28] MEDS: Pantoprazole 40 MG VIAL IVP ×2 (09:21→21:10)
[2022-08-28] MEDS: Insulin Glargine 300 UNITS/3 ML PEN 60 UNITS SC ×2 (10:42→21:10)
--- NOTE | 2022-08-28 11:12 | PT.INTREAT ---
PT Notes Visit Reasons: Hyperglycemia, ELVIA, Hyperkalemia Date: 08/27/2022 PRECAUTIONS: Fall, Standard,? WBAT on the left LE with AD. SUBJECTIVE: Pt in bed when approached for therapy this morning, pt reports chest pain and pain on the left scapular area, pt had catheter removed last night and was going back and forth the commode as a rsult, pt reports that she has pressed on her nurse call button and has been waiting for a nurse to come and check her. OBJECTIVE: ? PAIN: yes legs, chest and left shoulder area ? BED MOBILITY/TRANSFERS? Rolling L/R: Supervision Supine-sit: Supervision? Sit-supine: Supervision? VITALS:? Monitored by nursing staff ? THEREX: AM-Performed ankle pumps in sitting for 20 reps, LAQs on R/L for 10 reps x 2 sets, seated hip abd/adduction for 10 reps x 2 sets, seated marching for 10 reps x 2 sets, as well as working on chest expension with DBE x 5 reps between each tasks. ? ASSESSMENT:?pt vitals checked prior to bed level exercise to make sure pt is not having angina, pt vitals at 124/69 mmhg, 99% sa02, 77bpm. pt relaxed after knowing her numbers and was able to participate with bed level exercises, refused standing activities this morning and reports she would try later in the afternoon if her condition improves. PLAN: Continue with balance training, global strengthening and general conditioning for improved safety, mobility and activity tolerance. TREATMENT CODE/TIME: 23231 Therapeutic Activity (10:50-11:05am)
--- NOTE | 2022-08-28 11:30 | PDOC.CMPRO ---
Date of service: 08/28/22 Time of Service: 11:30 Care Management Progress Note Progress Note Text Progress Note Text: S/O: Third positive blood culture, still awaiting negative blood culture and then ID consult to inform IV ABX course. CM continues to follow. Janice is hoping to receive IV ABX treatment at home. CM informed her that if it was possible, efforts would be made to reach that goal. Potential barriers to home infusion may include the specific antibiotic, frequency of administration, cost, and insurance approval, as well as her clinical course. CM will continue to follow. A: Janice is a 56 year old woman admitted on 08/23/22 with sepsis from an infected knee P: Janice has S.aureus bacteremia and will need prolonged IV ABX therapy (6-8 weeks) possible. CM will?assist with the coordination of those services either through outpatient infusions, home infusions or swing bed. Janice's preference would be to do home infusions.?CM will follow and continue to assess for discharge planning needs.
[2022-08-28 11:44] VITALS: BP 112/66; PULSE 73; RESP 18; TEMP 36.8; O2SAT 96
[2022-08-28 12:38] VITALS: BP 131/75; PULSE 71; RESP 17; TEMP 37.1; O2SAT 97
[2022-08-28] MEDS: MAGNESIUM SULFATE 2 GM/50 ML BAG IVPB (12:43)
--- NOTE | 2022-08-28 14:21 | PT.INNT ---
PT Notes Visit Reasons: Hyperglycemia, ELVIA, Hyperkalemia Pt approached for therapy this afternoon multiple times during the course of the afternoon but was unavailable., pt waiting for transport going down for EKG.
[2022-08-28 15:29] VITALS: BP 105/65; PULSE 81; RESP 18; TEMP 37; O2SAT 97
--- NOTE | 2022-08-28 17:45 | RT.EKG_ITS ---
APPROVED REPORT Exam: Resting ECG Reason for Exam: chest pain Patient Location: I HR:75 bpm ECG Measurements Heart Rate 75 AXIS AK 147 P 60 QRSd 94 QRS 2 QT 391 T 33 QTc 437 Conclusion Sinus rhythm...normal P axis, V-rate 50- 99 Normal Electrocardiogram
--- NOTE | 2022-08-28 17:51 | W.PM.PROGNOT ---
Date of Service Date of service: 08/28/22 Time of Service: 17:51 Assessment and Plan Assessment and plan (1) Pleuritic chest pain: Status: Acute Assessment and plan: In setting of bacteremia as well as thrombocytopenia with mechanical DVT ppx only. My concerns are: possible pulmonary embolism, possible septic embolism. Place on tele, obtain EKG, troponin, CTA chest. (2) Staphylococcus aureus bacteremia: Status: Acute Assessment and plan: Sepsis, present on admission. Due to MSSA with evidence of septic arthritis L knee. Blood cx 08/23, 08/25, 08/27 positive. Repeat blood cx again tomorrow am. TTE w/o evidence of vegetations. Consider CHIARA. WBC and CRP better. Continue oxacillin. Trend CRP, procalcitonin. Consider ID consult if WBC continues to climb and no clear reason identifiable. (3) Septic arthritis of knee, left: Status: Acute Assessment and plan: S/p washout 08/24/22. As above Continue working with PT. Qualifiers: Septic arthritis organism: staphylococcal Qualified Code(s): M00.062 - Staphylococcal arthritis, left knee (4) ELVIA (acute kidney injury): Status: Resolved Assessment and plan: Prerenal, in setting of sepsis, resolved. Cr is 1.0 today. Monitor with administration of IV contrast. (5) Anemia of chronic disease: Status: Acute Assessment and plan: H/H down to 7.7, around where it was yesterday. Heme positive. Replete folate. May require a transfusion on this admission, but does not need it today. (6) Hyperbilirubinemia: Status: Acute Assessment and plan: In setting of cirrhosis, sepsis, ?shock liver. US RUQ shows a functional TIPS. Continue to monitor. (7) Cirrhosis of liver: Status: Chronic Assessment and plan: As above. Resume diuretics (8) DVT prophylaxis: Status: Acute Assessment and plan: I took the SCDs off until we have definitively ruled out a PE. We were avoiding chemical DVT ppx given thrombocytopenia and heme positive stools. Plts are 63 today. (9) Discharge planning issues: Status: Acute Assessment and plan: Full code Continues to require hospitalization Subjective Subjective Interval history since last seen: Reports pleuritic L-sided CP since 9 am this am of which I was unaware until now. Hurts to take a deep breath. Otherwise, has been doing well. NO dizziness, SOB, nausea. Has been getting out of bed on her own to use commode. Exam Narrative Exam Narrative: General: Middle-aged female who is A&Ox3, appears uncomfortable pulling herself up in bed to get up to get to the commode HEENT: EOMI, MMM Heart: RRR, +FREDY, CP not reproducible with palpation Lungs: CTAB Abdomen: soft, nontender, nondistended, RLQ ostomy c/d/i Extremities: L knee w/ jo-wrap, trace edema L foot/ankle; SCDs BLEs Objective Last Vital Signs Temp 37 C 08/28/22 15:29 Pulse 81 08/28/22 15:29 Resp 18 08/28/22 15:29 BP 105/65 08/28/22 15:29 Pulse Ox 97 08/28/22 15:29 Laboratory Results - last 24 hr 08/28/22 08/28/22 08/28/22 07:10 07:10 07:10 WBC 13.19 H RBC 2.03 L Hgb 7.7 L Hct 22.9 L MCV 113 H D MCH 37.9 H MCHC 33.6 RDW 16.9 H Plt Count 63 L MPV 10.1 Immature Gran % 9.6 Neutrophils % 71.5 Lymphocytes % 8.1 Monocytes % 10.0 Eosinophils % 0.6 Basophils % 0.2 Nucleated RBC % 0.4 H Absolute Neutrophils 9.43 H Absolute Lymphocytes 1.07 L Absolute Monocytes 1.32 H Absolute Eosinophils 0.08 Absolute Basophils 0.03 RBC Morphology See Below Polychromasia Present Macrocytosis 2+ Sodium 139 Potassium 4.5 Chloride 112 H Carbon Dioxide 20.9 L Anion Gap 6.1 BUN 37 H Creatinine 1.0 Est GFR (CKD-EPI 2020) 66.12 Glucose 111 H Calcium 7.6 L Magnesium 1.7 L C-Reactive Protein 2.53 H Procalcitonin 0.5 Time Spent with Patient Time Spent with Patient: 25-34 minutes Time was spent: preparing to see the patient(eg.review tests), obtaining and/or reviewing separately otained hiistory, ordering medications,tests, procedures, referring, communicating with other health professional healthcare representative, indepentently interpreting results, counseling the patient and care coordination
[2022-08-28 18:09] VITALS: PULSE 94
[2022-08-28 20:39] LABS: Troponin I < 50 ng/L (<or=60)
[2022-08-28] MEDS: Omnipaque 350 MG/ML 100 ML BTL IJ (20:39)
[2022-08-28] MEDS: Normal Saline - Diluent 50 ML VIAL IJ (20:40)
[2022-08-28] MEDS: HYDROmorphone 2 MG/ML SYR IVP (21:09)
--- NOTE | 2022-08-28 21:21 | DI.VRAD_ITS ---
PROCEDURE INFORMATION: Exam: CTA Chest With Contrast Exam date and time: 08/28/2022 8:36 PM Age: 56 years old Clinical indication: Other: Pleuritic chest pain TECHNIQUE: Imaging protocol: Computed tomographic angiography of the chest with contrast. Exam focused on the arteries. 3D rendering (Not supervised by radiologist): MIP and/or 3D reconstructed images were created by the technologist. Contrast material: 350; Contrast volume: 100 ml; Contrast route: INTRAVENOUS (IV); COMPARISON: CR XR CHEST 2V PA LATERAL 03/20/2019 11:15 AM FINDINGS: Pulmonary arteries: No pulmonary emboli. Aorta: No aortic aneurysm. No aortic dissection. Thyroid: 9 mm right thyroid lobe nodule. Lungs: No consolidation. No masses. Pleural spaces: Unremarkable. No pneumothorax. No pleural effusion. Heart: No cardiomegaly. No pericardial effusion. Lymph nodes: Unremarkable. No enlarged lymph nodes. Liver: Cirrhotic liver, tips in place. Gallbladder and bile ducts: Gallbladder is partially imaged, likely cholelithiasis, no evidence for acute cholecystitis. Spleen: Splenomegaly. Bones/joints: Unremarkable. No acute fracture. Soft tissues: Unremarkable. IMPRESSION: No pulmonary emboli. Dictated and Authenticated by: Mendez Álvarez MD. Ordering:PEDRO Nye MD
[2022-08-28 23:01] VITALS: PULSE 65
[2022-08-29 00:04] VITALS: BP 110/70; PULSE 75; RESP 18; TEMP 37.5; O2SAT 95
[2022-08-29] MEDS: HYDROmorphone 2 MG/ML SYR IVP ×4 (05:27→20:47)
[2022-08-29 07:35] VITALS: BP 128/71; PULSE 78; RESP 18; TEMP 36.5; O2SAT 96
[2022-08-29 08:17] LABS: Abs Immature Grans 1.06 10^3/uL (0.0-0.06); Absolute Basophil Count 0.05 10^3/uL (0.0-0.2); Absolute Eosinophil Count 0.09 10^3/uL (0.0-0.7); Absolute Lymphocyte Count 0.89 10^3/uL (1.2-3.4); Absolute Monocyte Count 0.99 10^3/uL (0.1-0.8); Absolute Neutrophil Count 7.23 10^3/uL (1.2-6.7); Basophils % 0.5; Eosinophils % 0.9; HCT 23.1 % (36.0-46.0); HGB 7.6 g/dL (11.2-15.7); Immature Grans % 10.3; Lymphocytes % 8.6; MCH 37.4 pg (27.0-33.0); MCHC 32.9 % (32.0-36.0); MCV 114 fL (80-95); MPV 10.1 fL (8.0-11.0); Monocytes % 9.6; Neutrophils % 70.1; Nucleated RBC 0.2 % (0.0-0.3); RBC 2.03 10^6/uL (3.93-5.22); RDW 17.5 % (11.7-14.6); RDW-SD 70.3 fL; WBC 10.31 10^3/uL (4.4-10.8)
[2022-08-29 08:34] LABS: ALT 17 U/L (14-59); AST 47 U/L (15-37); Albumin 1.1 g/dL (3.4-5.0); Alkaline Phosphatase 103 U/L (46-116); Anion Gap 7.9 mmol/L (3-11); BUN 35 mg/dL (7-18); Bilirubin, Direct 4.1 mg/dL (0.0-0.2); Bilirubin, Total 5.7 mg/dL (0.2-1.0); C-Reactive Protein 3.66 mg/dL (0.0-0.3); CO2 20.1 mmol/L (21.0-32.0); CREATININE 1.1 mg/dL (0.55-1.02); Calcium 7.5 mg/dL (8.5-10.1); Chloride 111 mmol/L (98-107); Estimated GFR 58.97 (mL/min/1.73m2); Glucose 147 mg/dL (74-106); Potassium 4.3 mmol/L (3.5-5.1); Sodium 139 mmol/L (136-145); Total Protein 5.3 g/dL (6.4-8.2)
[2022-08-29 08:42] LABS: Diff Comment Diff Reviewed; Macrocytosis 2+; Platelet Count 63 10^3/uL (130-400)
[2022-08-29] MEDS: Spironolactone 50 MG TAB PO (09:50)
[2022-08-29] MEDS: Folic Acid 1 MG TAB PO (09:50)
[2022-08-29] MEDS: Furosemide 20 MG TAB PO (09:50)
[2022-08-29] MEDS: Pantoprazole 40 MG VIAL IVP ×2 (09:51→20:48)
[2022-08-29] MEDS: Insulin Aspart 300 UNITS/3 ML PEN SC ×7 (09:53→20:49)
[2022-08-29] MEDS: Normal Saline Flush 10 ML SYR IVP (09:53)
[2022-08-29] MEDS: Normal Saline 500 ML 100 ML IV (09:54)
[2022-08-29] MEDS: Insulin Glargine 300 UNITS/3 ML PEN 60 UNITS SC ×2 (09:55→20:48)
--- NOTE | 2022-08-29 10:40 | PT.INTREAT ---
PT Notes Visit Reasons: Hyperglycemia, ELVIA, Hyperkalemia Inpatient Physical Therapy Treatment Note [facility] Date: 08/29/22 PRECAUTIONS: SUBJECTIVE: Pt reports that she is experiencing a lot of discomfort and just had pain medication so she is not able to walk being she is ligh theaded from it. OBJECTIVE: Supine-sit: SBA Sit-supine: SBA Sit-stand: SBA Stand-sit: SBA Bed to commode SBA without a assistive device stand pivot GAIT THEREX: LAQ x 20, Marching x 30, hip abd x 30, ankle pumps x 30. I refilled pt's cryo and that was applied post session. ASSESSMENT: Pt seemed to be experiencing a lot of discomfort and the pain medications were making it difficult for her so she did not want to walk. PLAN: Cont as per PT POC as per helen. TREATMENT CODE/TIME: 10:10-10:40 (30) KIET MURPHY
[2022-08-29 11:02] VITALS: BP 130/71; PULSE 71; RESP 16; TEMP 36.5; O2SAT 95
[2022-08-29 15:00] VITALS: PULSE 86
[2022-08-29 15:07] VITALS: BP 126/61; PULSE 85; RESP 16; TEMP 36.6; O2SAT 98
--- NOTE | 2022-08-29 16:11 | W.PM.PROGNOT ---
Date of Service Date of service: 08/29/22 Time of Service: 16:12 Assessment and Plan Assessment and plan (1) Pleuritic chest pain: Status: Acute Assessment and plan: In setting of bacteremia as well as thrombocytopenia with mechanical DVT ppx only. No pulmonary embolism on CTA chest. Cont. tele. Troponin neg. (2) Staphylococcus aureus bacteremia: Status: Acute Assessment and plan: Sepsis, present on admission. Due to MSSA with evidence of septic arthritis L knee. Blood cx 08/23, 08/25, 08/27 positive. Repeat blood cx today, 08/29. TTE w/o evidence of vegetations. Consider CHIARA. WBC normalized and CRP better. Continue oxacillin. Trend CRP, procalcitonin. Consider ID consult if WBC continues to climb and no clear reason identifiable. (3) Septic arthritis of knee, left: Status: Acute Assessment and plan: S/p washout 08/24/22. As above Continue working with PT. Qualifiers: Septic arthritis organism: staphylococcal Qualified Code(s): M00.062 - Staphylococcal arthritis, left knee (4) ELVIA (acute kidney injury): Status: Resolved Assessment and plan: Prerenal, in setting of sepsis, resolved. Cr is 1.1 today. Monitor with administration of IV contrast. (5) Anemia of chronic disease: Status: Acute Assessment and plan: H/H down to 7.6. Heme positive. Replete folate. May require a transfusion on this admission, but does not need it today. Monitoring. (6) Hyperbilirubinemia: Status: Acute Assessment and plan: In setting of cirrhosis, sepsis, ?shock liver. US RUQ shows a functional TIPS. Continue to monitor. (7) Cirrhosis of liver: Status: Chronic Assessment and plan: As above. Resume diuretics (8) DVT prophylaxis: Status: Acute Assessment and plan: I took the SCDs off until we have definitively ruled out a PE. We were avoiding chemical DVT ppx given thrombocytopenia and heme positive stools. Plts are 63 today. (9) Discharge planning issues: Status: Acute Assessment and plan: Full code Continues to require hospitalization Subjective Subjective Patient reports: no new complaints, tolerating liquids well and afebrile; denies vomiting or shortness of breath Interval history since last seen: Left knee with less pain. Exam Narrative Exam Narrative: General: Middle-aged female; conversant and pleasant. NAD HEENT: Sclera clear. MMM Heart: RRR, +FREDY Lungs: CTAB Abdomen: soft, nontender, nondistended, RLQ ostomy c/d/i Extremities: L knee w/ jo-wrap, trace edema L foot/ankle; SCDs BLEs Objective Last Vital Signs Temp 36.6 C 08/29/22 15:07 Pulse 85 08/29/22 15:07 Resp 16 08/29/22 15:07 BP 126/61 08/29/22 15:07 Pulse Ox 98 08/29/22 15:07 Laboratory Results - last 24 hr 08/28/22 08/28/22 08/29/22 18:25 20:13 07:25 WBC RBC Hgb Hct MCV MCH MCHC RDW Plt Count MPV Immature Gran % Neutrophils % Lymphocytes % Monocytes % Eosinophils % Basophils % Nucleated RBC % Absolute Neutrophils Absolute Lymphocytes Absolute Monocytes Absolute Eosinophils Absolute Basophils RBC Morphology Macrocytosis Sodium 139 Potassium 4.3 Chloride 111 H Carbon Dioxide 20.1 L Anion Gap 7.9 BUN 35 H Creatinine 1.1 H Est GFR (CKD-EPI 2020) 58.97 Glucose 147 H Calcium 7.5 L Magnesium 2.0 Total Bilirubin 5.7 H Conjugated Bilirubin 4.1 H AST 47 H ALT 17 Alkaline Phosphatase 103 Troponin I Cancelled < 50 C-Reactive Protein 3.66 H Total Protein 5.3 L Albumin 1.1 L 08/29/22 07:25 WBC 10.31 RBC 2.03 L Hgb 7.6 L Hct 23.1 L MCV 114 H MCH 37.4 H MCHC 32.9 RDW 17.5 H Plt Count 63 L MPV 10.1 Immature Gran % 10.3 Neutrophils % 70.1 Lymphocytes % 8.6 Monocytes % 9.6 Eosinophils % 0.9 Basophils % 0.5 Nucleated RBC % 0.2 Absolute Neutrophils 7.23 H Absolute Lymphocytes 0.89 L Absolute Monocytes 0.99 H Absolute Eosinophils 0.09 Absolute Basophils 0.05 RBC Morphology See Below Macrocytosis 2+ Sodium Potassium Chloride Carbon Dioxide Anion Gap BUN Creatinine Est GFR (CKD-EPI 2020) Glucose Calcium Magnesium Total Bilirubin Conjugated Bilirubin AST ALT Alkaline Phosphatase Troponin I C-Reactive Protein Total Protein Albumin Time Spent with Patient Time Spent with Patient: 25-34 minutes Time was spent: preparing to see the patient(eg.review tests), obtaining and/or reviewing separately otained hiistory, ordering medications,tests, procedures, referring, communicating with other health care administrative tech, indepentently interpreting results and counseling the patient
[2022-08-29 19:38] VITALS: BP 121/73; PULSE 84; RESP 16; TEMP 37; O2SAT 94
[2022-08-30 00:33] VITALS: PULSE 81
[2022-08-30] MEDS: Enoxaparin 100 MG/ML SYR SC ×2 (03:24→16:30)
[2022-08-30 05:48] VITALS: BP 119/66; PULSE 100; RESP 16; TEMP 37.3; O2SAT 93
[2022-08-30 06:39] LABS: HCT 24.8 % (36.0-46.0); HGB 8.4 g/dL (11.2-15.7); MCH 38.5 pg (27.0-33.0); MCHC 33.9 % (32.0-36.0); MCV 114 fL (80-95); MPV 10.1 fL (8.0-11.0); RBC 2.18 10^6/uL (3.93-5.22); RDW 17.8 % (11.7-14.6); RDW-SD 72.3 fL; WBC 14.57 10^3/uL (4.4-10.8)
[2022-08-30 06:52] LABS: Anion Gap 9.8 mmol/L (3-11); BUN 29 mg/dL (7-18); C-Reactive Protein 3.99 mg/dL (0.0-0.3); CO2 19.2 mmol/L (21.0-32.0); CREATININE 1.2 mg/dL (0.55-1.02); Calcium 7.3 mg/dL (8.5-10.1); Chloride 108 mmol/L (98-107); Estimated GFR 53.13 (mL/min/1.73m2); Glucose 97 mg/dL (74-106); Potassium 4.1 mmol/L (3.5-5.1); Sodium 137 mmol/L (136-145)
[2022-08-30 06:56] LABS: Platelet Count 72 10^3/uL (130-400)
[2022-08-30 06:57] LABS: Absolute Eosinophil Count 0.15 10^3/uL (0.0-0.7); Absolute Lymphocyte Count 1.17 10^3/uL (1.2-3.4); Absolute Monocyte Count 0.44 10^3/uL (0.1-0.8); Absolute Neutrophil Count 11.66 10^3/uL (1.2-6.7); Bands % 6; Diff Comment Manual Differential; Macrocytosis 2+; Metamyelocytes % 6; Myelocytes % 2
[2022-08-30] MEDS: Folic Acid 1 MG TAB PO (07:26)
[2022-08-30] MEDS: Furosemide 20 MG TAB PO (07:26)
[2022-08-30] MEDS: Spironolactone 50 MG TAB PO (07:27)
[2022-08-30] MEDS: Pantoprazole 40 MG VIAL IVP ×2 (07:27→21:42)
[2022-08-30] MEDS: Normal Saline Flush 10 ML SYR IVP ×5 (07:27→16:30)
[2022-08-30] MEDS: HYDROmorphone 2 MG/ML SYR IVP ×3 (07:27→17:28)
[2022-08-30 07:30] VITALS: BP 121/73; PULSE 98; RESP 16; TEMP 37.3; O2SAT 95
[2022-08-30 08:02] VITALS: PULSE 101
[2022-08-30] MEDS: Insulin Aspart 300 UNITS/3 ML PEN SC ×6 (08:38→21:42)
[2022-08-30] MEDS: Acetaminophen Solution 650 MG/20.3 ML CUP PO ×2 (08:38→17:27)
[2022-08-30] MEDS: Normal Saline 500 ML 100 ML IV (09:45)
--- NOTE | 2022-08-30 11:13 | PT.INNT ---
PT Notes Visit Reasons: Hyperglycemia, ELVIA, Hyperkalemia PT refused PT services x 2 today first attempt pt wanted to wait because she was getting ready to take a shower and the second she was too tired from walking and taking a shower.
[2022-08-30 11:19] LABS: HGB 7.4 g/dL (11.2-15.7); MCH 38.5 pg (27.0-33.0); MCHC 33.6 % (32.0-36.0); MCV 115 fL (80-95); MPV 10.3 fL (8.0-11.0); RBC 1.92 10^6/uL (3.93-5.22); RDW-SD 75.3 fL; WBC 10.77 10^3/uL (4.4-10.8)
[2022-08-30 11:51] LABS: Platelet Count 60 10^3/uL (130-400)
[2022-08-30 15:17] VITALS: BP 123/69; PULSE 89; RESP 16; TEMP 36.4; O2SAT 96
--- NOTE | 2022-08-30 15:54 | PGE_ITS ---
Date of Service Date of service: 08/30/22 Time of Service: 15:54 Assessment and Plan Assessment and plan (1) Pleuritic chest pain: Status: Acute Assessment and plan: In setting of bacteremia as well as thrombocytopenia with mechanical DVT ppx only. No pulmonary embolism on CTA chest. Cont. tele. Troponin neg. (2) Staphylococcus aureus bacteremia: Status: Acute Assessment and plan: Sepsis, present on admission. Due to MSSA with evidence of septic arthritis L knee. Blood cx 08/23, 08/25, 08/27 , 08/29 positive. MIdline removed last PM (possible source of ongoing bacteremia? vs possible bacterial endocarditis). Repeat bl cxs in AM of 08/31. TTE w/o evidence of vegetations. Consider CHIARA. WBC normalized and CRP better. Continue oxacillin. Trend CRP, procalcitonin. Discuss with ID Tomorrow. (3) Septic arthritis of knee, left: Status: Acute Assessment and plan: S/p washout 08/24/22. As above Continue working with PT. Qualifiers: Septic arthritis organism: staphylococcal Qualified Code(s): M00.062 - Staphylococcal arthritis, left knee (4) ELVIA (acute kidney injury): Status: Resolved Assessment and plan: Prerenal, in setting of sepsis, resolved. Cr is 1.2 today. Monitor with administration of IV contrast. (5) Anemia of chronic disease: Status: Acute Assessment and plan: H/H down to 7.6 > 7.4 Heme positive. Replete folate. Repeating Hgb this evening. Transfuse as needed. (6) Hyperbilirubinemia: Status: Acute Assessment and plan: In setting of cirrhosis, sepsis, ?shock liver. US RUQ shows a functional TIPS. Continue to monitor. (7) Cirrhosis of liver: Status: Chronic Assessment and plan: As above. Resume diuretics (8) DVT prophylaxis: Status: Acute Assessment and plan: SCDs (9) Discharge planning issues: Status: Acute Assessment and plan: Full code Continues to require hospitalization Subjective Subjective Patient reports: no new complaints and afebrile; denies nausea or vomiting Exam Narrative Exam Narrative: General: Middle-aged female; conversant and pleasant. NAD HEENT: Sclera clear. MMM Heart: RRR, +FREDY Lungs: CTAB Abdomen: soft, nontender, nondistended, RLQ ostomy c/d/i Extremities: L knee w/ jo-wrap, trace edema L foot/ankle; SCDs BLEs Objective Last Vital Signs Temp 36.4 C L 08/30/22 15:17 Pulse 89 08/30/22 15:17 Resp 16 08/30/22 15:17 BP 123/69 08/30/22 15:17 Pulse Ox 96 08/30/22 15:17 Laboratory Results - last 24 hr 08/30/22 08/30/22 08/30/22 05:35 06:26 06:26 WBC 14.57 H RBC 2.18 L Hgb 8.4 L Hct 24.8 L MCV 114 H MCH 38.5 H MCHC 33.9 RDW 17.8 H Plt Count 72 L MPV 10.1 Immature Gran % 0.0 Neutrophils % 74.0 Band Neutrophils % 6 Lymphocytes % 8.0 Monocytes % 3.0 Eosinophils % 1.0 Basophils % 0.0 Metamyelocytes % 6 Myelocytes % 2 Nucleated RBC % 0.0 Absolute Neutrophils 11.66 H Absolute Lymphocytes 1.17 L Absolute Monocytes 0.44 Absolute Eosinophils 0.15 Absolute Basophils 0.00 RBC Morphology See Below Macrocytosis 2+ Sodium 137 Potassium 4.1 Chloride 108 H Carbon Dioxide 19.2 L Anion Gap 9.8 BUN 29 H Creatinine 1.2 H Est GFR (CKD-EPI 2020) 53.13 Glucose 97 Calcium 7.3 L C-Reactive Protein Cancelled 3.99 H 08/30/22 10:53 WBC 10.77 RBC 1.92 L Hgb 7.4 L Hct 22.0 L MCV 115 H MCH 38.5 H MCHC 33.6 RDW 18.0 H Plt Count 60 L MPV 10.3 Immature Gran % Neutrophils % Band Neutrophils % Lymphocytes % Monocytes % Eosinophils % Basophils % Metamyelocytes % Myelocytes % Nucleated RBC % Absolute Neutrophils Absolute Lymphocytes Absolute Monocytes Absolute Eosinophils Absolute Basophils RBC Morphology Macrocytosis Sodium Potassium Chloride Carbon Dioxide Anion Gap BUN Creatinine Est GFR (CKD-EPI 2020) Glucose Calcium C-Reactive Protein Time Spent with Patient Time Spent with Patient: 25-34 minutes Time was spent: preparing to see the patient(eg.review tests), obtaining and/or reviewing separately otained hiistory, ordering medications,tests, procedures, referring, communicating with other health critical care nurse specialist and indepentently interpreting results
[2022-08-30 20:10] LABS: HCT 22.4 % (36.0-46.0); HGB 7.7 g/dL (11.2-15.7); MCH 38.1 pg (27.0-33.0); MCHC 34.4 % (32.0-36.0); MCV 111 fL (80-95); MPV 10.8 fL (8.0-11.0); Platelet Count 44 10^3/uL (130-400); RBC 2.02 10^6/uL (3.93-5.22); RDW 17.9 % (11.7-14.6); RDW-SD 71.4 fL
[2022-08-30 20:11] VITALS: BP 121/68; PULSE 76; RESP 14; TEMP 36.8; O2SAT 98
[2022-08-30] MEDS: Insulin Glargine 300 UNITS/3 ML PEN 60 UNITS SC (21:40)
[2022-08-31] MEDS: HYDROmorphone 2 MG/ML SYR IVP ×4 (02:01→22:24)
[2022-08-31] MEDS: Enoxaparin 100 MG/ML SYR SC ×2 (03:27→16:50)
--- NOTE | 2022-08-31 04:15 | DI.US_ITS ---
Exam(s) US UPPER EXTREMITY VENOUS RT EXAM: US UPPER EXTREMITY VENOUS RT CLINICAL HISTORY: Right Arm swollen, Midline removed from this arm TECHNIQUE: GRAYSCALE, COLOR, DOPPLER IMAGING OF THE VENOUS SYSTEM OF THE UPPER EXTREMITY-BILATERAL COMPARISON: US US ABDOMEN LIMITED from 08/26/2022 FINDINGS: Basilic vein: Patent. Normal color-flow and normal compression and augmentation properties. Brachial vein(s):Patent. Normal color flow. Normal compression and augmentation properties. Cephalic vein:Abnormal. There is intraluminal thrombus within the cephalic vein measuring 12 cm lakhwinder th. Axillary vein: Patent. Normal color flow. Normal compression and augmentation properties. Visualized subclavian vein: Patent. No obvious intraluminal thrombus. IMPRESSION: 1. Positive study for intraluminal thrombus within the right cephalic vein. This is above the elbow level. The length of the clot is approximately 12 cm. 2. There is no extension into the axillary vein at this time. DATA REPOSITORY:
[2022-08-31 07:25] VITALS: BP 114/71; PULSE 86; RESP 17; TEMP 36.5; O2SAT 97
--- NOTE | 2022-08-31 09:01 | PDOC.CMPRO ---
Date of service: 08/31/22 Time of Service: 09:01 Care Management Progress Note Progress Note Text Progress Note Text: S/O: Janice was sitting up in bed visiting with family when CM met with her. She was smiling and appeared to be in good spirits. Janice shared that she had developed a blood clot in her right arm and displayed how swollen it was. She has persistent bacteremia with MSSA. The most recent cultures (prior to today) are still positive. Her midline catheter was removed last evening as a potential source for her bacteremia. Janice informed CM that she feels much improved. She stated that her knee is still sore but she has been able to walk with PT and is doing a little better each day. When she ia able to clear the bacteremia, a plan can be developed to determine how and where she will complete the required course of IV antibiotics.? Janice is hoping to receive IV ABX treatment at home. CM informed her that if it was possible, efforts would be made to reach that goal. Potential barriers to home infusion may include the specific antibiotic, frequency of administration, cost, and insurance approval, as well as her clinical course. CM will continue to follow. A: Janice is a 56 year old woman admitted on 08/23/22 with sepsis from an infected knee P: Janice has S.aureus bacteremia and will need prolonged IV ABX therapy (6-8 weeks) possible. CM will?assist with the coordination of those services either through outpatient infusions, home infusions or swing bed. Janice's preference would be to do home infusions.?CM will follow and continue to assess for discharge planning needs.
[2022-08-31 09:04] LABS: Abs Immature Grans 0.79 10^3/uL (0.0-0.06); Absolute Basophil Count 0.02 10^3/uL (0.0-0.2); Absolute Eosinophil Count 0.07 10^3/uL (0.0-0.7); Absolute Lymphocyte Count 1.18 10^3/uL (1.2-3.4); Absolute Monocyte Count 0.82 10^3/uL (0.1-0.8); Basophils % 0.3; Eosinophils % 0.9; HCT 22.5 % (36.0-46.0); HGB 7.7 g/dL (11.2-15.7); MCH 38.9 pg (27.0-33.0); MCHC 34.2 % (32.0-36.0); MCV 114 fL (80-95); Monocytes % 10.4; Neutrophils % 63.4; Nucleated RBC 0.3 % (0.0-0.3); RBC 1.98 10^6/uL (3.93-5.22); RDW 18.4 % (11.7-14.6); RDW-SD 75.4 fL; WBC 7.88 10^3/uL (4.4-10.8)
[2022-08-31] MEDS: Spironolactone 50 MG TAB PO (09:15)
[2022-08-31] MEDS: Furosemide 20 MG TAB PO (09:15)
[2022-08-31] MEDS: Folic Acid 1 MG TAB PO (09:15)
[2022-08-31] MEDS: Pantoprazole 40 MG VIAL IVP ×2 (09:16→22:26)
[2022-08-31] MEDS: Insulin Glargine 300 UNITS/3 ML PEN 60 UNITS SC ×2 (09:16→22:24)
[2022-08-31 09:17] LABS: Diff Comment Diff Reviewed
[2022-08-31 09:18] LABS: Macrocytosis 2+
[2022-08-31] MEDS: Insulin Aspart 300 UNITS/3 ML PEN SC ×6 (09:18→18:03)
[2022-08-31] MEDS: Acetaminophen Solution 650 MG/20.3 ML CUP PO ×2 (09:30→18:06)
[2022-08-31 10:30] LABS: ALT 27 U/L (14-59); AST 68 U/L (15-37); Albumin 1.2 g/dL (3.4-5.0); Alkaline Phosphatase 94 U/L (46-116); Anion Gap 9.9 mmol/L (3-11); BUN 28 mg/dL (7-18); Bilirubin, Total 6.2 mg/dL (0.2-1.0); CO2 18.1 mmol/L (21.0-32.0); CREATININE 1.1 mg/dL (0.55-1.02); Calcium 6.9 mg/dL (8.5-10.1); Chloride 107 mmol/L (98-107); Estimated GFR 58.97 (mL/min/1.73m2); Glucose 227 mg/dL (74-106); Potassium 4.5 mmol/L (3.5-5.1); Sodium 135 mmol/L (136-145); Total Protein 5.2 g/dL (6.4-8.2)
[2022-08-31 10:35] LABS: C-Reactive Protein 3.59 mg/dL (0.0-0.3); NT-proBNP 350 pg/mL (<300)
[2022-08-31 11:28] LABS: Procalcitonin 0.4 ng/mL
[2022-08-31 15:17] VITALS: BP 98/60; PULSE 83; RESP 18; TEMP 37; O2SAT 96
--- NOTE | 2022-08-31 17:29 | PT.INTREAT ---
Date of service: 08/31/22 Time of Service: 12:48 PT Notes Visit Reasons: Hyperglycemia, ELVIA, Hyperkalemia Physical Therapy Inpatient Treatment Note Date: 08/28/2022 PRECAUTIONS: Fall, Standard,? WBAT on the left LE with AD. SUBJECTIVE: Agreeable to walking as far as she could today. Operations Mgr with patient trying to find IV route to draw blood from when PT came in. Still fatigued but was able to negotiate distance to and from bathroom using FWW with no report of increase pain in the L knee. OBJECTIVE: IV access through L antecubital area. Resting in bed. ? BED MOBILITY/TRANSFERS? Rolling L/R: supervision Supine-sit: supervision? Sit-supine: supervision? Sit-stand: supervision ? Stand-sit: supervision Bed to toilet seat: supervision Toilet seat to bed: supervision GAIT: 25 feet + 25 feet using FWW with WBAT on the L LE. Fatigued, id not feel confident about trying to walk farther today. ? THEREX: Supine heel slides x10, only able to bend at the knee about 50 degrees Supine SLR x 5 Quads sets x 10 Slide outs x 10 ? ASSESSMENT:? Patient does not need any physical assistance as long as she has her FWW for all transfers and short distance ambulation. Ongoing medical management slowly allowing improving functional outcomes in patient. PLAN: Progress with balance training, global strengthening and general conditioning for improved safety, mobility and activity tolerance. TREATMENT CODE/TIME: 55832 x 15 minutes, 20083 x 12 minutes beginning at 12:48 PM.?
--- NOTE | 2022-08-31 18:01 | PGE_ITS ---
Date of Service Date of service: 08/31/22 Time of Service: 18:01 Assessment and Plan Assessment and plan (1) Pleuritic chest pain: Status: Acute Assessment and plan: In setting of bacteremia as well as thrombocytopenia with mechanical DVT ppx only. No pulmonary embolism on CTA chest. Cont. tele. Troponin neg. (2) Staphylococcus aureus bacteremia: Status: Acute Assessment and plan: Sepsis, present on admission. Due to MSSA with evidence of septic arthritis L knee. Blood cx 08/23, 08/25, 08/27 , 08/29 positive. MIdline removed last PM (possible source of ongoing bacteremia? vs possible bacterial endocarditis). Repeat bl cxs today; very difficult to obtain d/t poor veinous access. 1 set was eventually obtained. TTE w/o evidence of vegetations. Will need CHIARA if todays set of cultures is still positive. WBC normalized and CRP better. Continue oxacillin. Trend CRP, procalcitonin. Discuss with ID Tomorrow. (3) Septic arthritis of knee, left: Status: Acute Assessment and plan: S/p washout 08/24/22. As above Continue working with PT. Qualifiers: Septic arthritis organism: staphylococcal Qualified Code(s): M00.062 - Staphylococcal arthritis, left knee (4) ELVIA (acute kidney injury): Status: Resolved Assessment and plan: Prerenal, in setting of sepsis, resolved. Cr is 1.1 today. Monitor with administration of IV contrast. (5) Anemia of chronic disease: Status: Acute Assessment and plan: H/H down to 7.6 > 7.4 > 7.7 Heme positive. Replete folate. (6) Hyperbilirubinemia: Status: Acute Assessment and plan: In setting of cirrhosis, sepsis, ?shock liver. US RUQ shows a functional TIPS. Continue to monitor. (7) Cirrhosis of liver: Status: Chronic Assessment and plan: As above. Resume diuretics (8) Hypocalcemia: Status: Acute Assessment and plan: Corrects to normal when low albumin taken into account. (9) DVT prophylaxis: Status: Acute Assessment and plan: SCDs (10) Discharge planning issues: Status: Acute Assessment and plan: Full code Continues to require hospitalization Subjective Subjective Patient reports: no new complaints and afebrile; denies diarrhea, nausea, vomiting or shortness of breath Interval history since last seen: Working well with PT. Exam Narrative Exam Narrative: General: Middle-aged female; conversant and pleasant. NAD HEENT: Sclera clear. MMM Heart: RRR, +FREDY Lungs: CTAB Abdomen: soft, nontender, nondistended, RLQ ostomy c/d/i Extremities: L knee w/ jo-wrap, trace edema L foot/ankle; SCDs BLEs Objective Last Vital Signs Temp 37.0 C 08/31/22 15:17 Pulse 83 08/31/22 15:17 Resp 18 08/31/22 15:17 BP 98/60 L 08/31/22 15:17 Pulse Ox 96 08/31/22 15:17 Laboratory Results - last 24 hr 08/30/22 08/31/22 08/31/22 20:00 08:55 10:00 WBC 8.60 7.88 RBC 2.02 L 1.98 L Hgb 7.7 L 7.7 L Hct 22.4 L 22.5 L MCV 111 H D 114 H MCH 38.1 H 38.9 H MCHC 34.4 34.2 RDW 17.9 H 18.4 H Plt Count 44 L MPV 10.8 Immature Gran % 10.0 Neutrophils % 63.4 Lymphocytes % 15.0 Monocytes % 10.4 Eosinophils % 0.9 Basophils % 0.3 Nucleated RBC % 0.3 Absolute Neutrophils 5.00 Absolute Lymphocytes 1.18 L Absolute Monocytes 0.82 H Absolute Eosinophils 0.07 Absolute Basophils 0.02 RBC Morphology See Below Macrocytosis 2+ Sodium Potassium Chloride Carbon Dioxide Anion Gap BUN Creatinine Est GFR (CKD-EPI 2020) Glucose Calcium Total Bilirubin AST ALT Alkaline Phosphatase C-Reactive Protein 3.59 H NT-Pro-B Natriuret Pep 350 H Total Protein Albumin Procalcitonin 08/31/22 08/31/22 10:00 10:00 WBC RBC Hgb Hct MCV MCH MCHC RDW Plt Count MPV Immature Gran % Neutrophils % Lymphocytes % Monocytes % Eosinophils % Basophils % Nucleated RBC % Absolute Neutrophils Absolute Lymphocytes Absolute Monocytes Absolute Eosinophils Absolute Basophils RBC Morphology Macrocytosis Sodium 135 L Potassium 4.5 Chloride 107 Carbon Dioxide 18.1 L Anion Gap 9.9 BUN 28 H Creatinine 1.1 H Est GFR (CKD-EPI 2020) 58.97 Glucose 227 H Calcium 6.9 L Total Bilirubin 6.2 H AST 68 H ALT 27 Alkaline Phosphatase 94 C-Reactive Protein NT-Pro-B Natriuret Pep Total Protein 5.2 L Albumin 1.2 L Procalcitonin 0.4 Time Spent with Patient Time Spent with Patient: 25-34 minutes Time was spent: preparing to see the patient(eg.review tests), obtaining and/or reviewing separately otained hiistory, ordering medications,tests, procedures, referring, communicating with other health resident care supervisor, indepentently interpreting results, counseling the patient and care coordination
[2022-08-31 20:57] VITALS: BP 122/66; PULSE 91; RESP 12; TEMP 37.4; O2SAT 98
--- NOTE | 2022-09-01 | DI.CT_ITS ---
Exam(s) CT ABDOMEN PELVIS W EXAM: CT ABDOMEN PELVIS W CLINICAL HISTORY: Refractory bacteremia. TECHNIQUE: Imaging Protocol: Axial computed tomography images with coronal and sagittal reformatted images were created and reviewed CONTRAST MATERIAL: Intravenous: Omnipaque-350 100cc Oral: None COMPARISON: CT CT CHEST PE CTA from 08/28/2022 FINDINGS: VISUALIZED LUNG BASES: No nodules nor pleural effusions evident. There are no infiltrates in the vis ualized lung bases. ABDOMEN: There is mild ascites. Esophageal varices evident. LIVER: Cirrhotic appearing liver with TIPS stent in place in the liver. No focal hepatic lesions. N o dilated intrahepatic ducts. GALLBLADDER/BILIARY: The gallbladder contains small radiopaque calculi and is grossly edematous with pericholecystic fluid. CBD is not dilated. PANCREAS: Pancreas is somewhat atrophic. No pancreatic masses. No dilated intrahepatic ducts. SPLEEN: Splenomegaly noted. There is thin linear calcification in the lateral capsule the spleen. T here are multiple collaterals including esophageal varices. ADRENALS: There are no significant adrenal masses. KIDNEYS:Right kidney unremarkable. Subcapsular fluid around the left kidney noted probably combinati on of small cysts and small subcapsular hematoma. No calculi. No hydronephrosis on either side. No solid renal masses. Mildly are. ABDOMINAL AORTA: Abdominal aorta is not enlarged. LYMPH NODES:There is no retroperitoneal nor paraaortic adenopathy. ABDOMINAL WALL: Anasarca, relatively symmetrical. GI: There is an anterior right abdominal wall ostomy site. No hernia at this level. No evidence of bowel obstruction. PELVIS: GI: Prior colectomy. right sided ileostomy. LYMPH NODES: There is no intrapelvic nor inguinal adenopathy. REPRODUCTIVE: Retroverted uterus. Some fluid in the cul-de-sac noted. No ovarian masses evident. URINARY BLADDER: Not distended. Distal ureters not dilated. No bladder mass seen. No radiopaque ca lculi in the bladder lumen. OSSEOUS: No fractures and no significant osseous lesions. No fractures. Chronic degenerative disc disease L5-S1. IMPRESSION: 1. TIPS, cirrhotic liver, splenomegaly, and collateralization, including esophageal varices. Mild as cites evident in the abdomen pelvis. 2. There is cholelithiasis and there is significant amount of Sammie cholecystic fluid, more so than ca n be accounted for by the amount of ascites. Suspect cholecystitis. CBD is not dilated. There is n o obvious radiopaque calculus in the lower CBD. 3. Pancreas appears somewhat atrophic. 4. Visualized lung bases are clear. RADIATION DOSE DELIVERED: 1,377.29mGy.cm Total DLP DATA REPOSITORY: All CT scans at this facility are submitted to the National Radiology Data Registry (NRDR) Dose Index Registry (DIR) with the [employer] (A[employer]). RADIATION OPTIMIZATION: All CT scans at this facility use at least one of these dose optimization te chniques: automated exposure control; mA and/or kV adjustment per patient size (includes targeted exa ms where dose is matched to clinical indication); or iterative reconstruction.
[2022-09-01] MEDS: Enoxaparin 100 MG/ML SYR SC (05:19)
[2022-09-01 07:22] LABS: C-Reactive Protein 3.03 mg/dL (0.0-0.3)
[2022-09-01 07:38] VITALS: BP 140/76; PULSE 84; TEMP 37.1; O2SAT 95
[2022-09-01] MEDS: Folic Acid 1 MG TAB PO (08:10)
[2022-09-01] MEDS: Furosemide 20 MG TAB PO (08:11)
[2022-09-01] MEDS: Pantoprazole 40 MG VIAL IVP ×2 (08:11→20:32)
[2022-09-01] MEDS: Spironolactone 50 MG TAB PO (08:11)
[2022-09-01] MEDS: Insulin Glargine 300 UNITS/3 ML PEN 60 UNITS SC ×2 (08:15→20:33)
[2022-09-01] MEDS: Insulin Aspart 300 UNITS/3 ML PEN SC ×4 (09:33→17:37)
[2022-09-01] MEDS: HYDROmorphone 2 MG/ML SYR IVP ×2 (09:41→18:10)
--- NOTE | 2022-09-01 10:06 | PDOC.CMPRO ---
Date of service: 09/01/22 Time of Service: 17:13 Care Management Progress Note Progress Note Text Progress Note Text: S/O: Janice was sitting up in bed visiting with family when CM met with her. She was smiling and engaged easily with CM. Janice shared that she continues to ambulate with PT. She also informed CM that she has been getting up to the bathroom at night vs using the commode. She did say that her knee hurt a bit more today. All blood cultures drawn to date are positive. The provider has reached out to [facility] [place] [place] re: a CHIARA. Janice indicated that she has been told she would need to be there for 2-3 days then would return to [facility] to complete the IV antibiotic course. A: Janice is a 56 year old woman admitted on 08/23/22 with sepsis from an infected knee P: Janice has S.aureus bacteremia and will need prolonged IV ABX therapy (6-8 weeks) possible. CM will?assist with the coordination of those services either through outpatient infusions, home infusions or swing bed. Janice's preference would be to do home infusions.?CM will follow and continue to assess for discharge planning needs.
[2022-09-01 10:31] LABS: HCT 22.2 % (36.0-46.0); HGB 7.4 g/dL (11.2-15.7); MCH 38.5 pg (27.0-33.0); MCHC 33.3 % (32.0-36.0); MCV 116 fL (80-95); MPV 10.3 fL (8.0-11.0); RBC 1.92 10^6/uL (3.93-5.22); RDW 18.7 % (11.7-14.6); RDW-SD 78.9 fL
--- NOTE | 2022-09-01 10:41 | PTTR_ITS ---
Date of service: 09/01/22 Time of Service: 09:43 PT Notes Visit Reasons: Hyperglycemia, ELVIA, Hyperkalemia Inpatient Physical Therapy Treatment Note [facility] Date: 09/01/22 PRECAUTIONS: Fall, standard, activity as tolerated SUBJECTIVE: patient supine in bed, reports she just got back into bed and has been up all morning, agreeable to bed level exercises but not to ambulation. Afternoon patient supine in bed, agreeable to therapy, agreeable to walking. OBJECTIVE: PAIN: c/o stiffness, soreness from laying in one position all night. Also belie ves that getting up to walk to restroom may have contributed to increased pain today. Afternoon patient reports being cold, less stiff than this morning. BED MOBILITY/TRANSFERS Rolling L/R: refused due to being afraid to bend her IV access AFTERNOON: supine to sit standby, sit to stand standby, stand to sit standby, s it to supine min assist to get left leg into bed. GAIT: afternoon patient ambulates CGA, help managing IV pole, with FWW 75 feet in room, no c/o dizziness, shortness of breath. Reports knee gets to throbbing pretty good after ambulation, so she doesn't wish to push too hard. Reduced step length, adequate step height. THEREX: RLE 10x heel slides, refused heel slides LLE. Bilateral 10x hip internal & external rotation, ab & adduction, SLR's, 2x10 ankle pumps, 2x5 TA activation with chin tuck. ASSESSMENT: Patient tolerates therapy well, is agreeable to attempt ambulation in the afternoon. PLAN: Continue global strengthening per plan of care TREATMENT CODE/TIME: 26514 Ther Ex 17 minutes beginning at 9:43 Afternoon [id number] Gait 15 minutes beginning at 13:59
[2022-09-01 11:08] LABS: Absolute Eosinophil Count 0.13 10^3/uL (0.0-0.7); Absolute Lymphocyte Count 0.73 10^3/uL (1.2-3.4); Absolute Monocyte Count 0.46 10^3/uL (0.1-0.8); Absolute Neutrophil Count 5.02 10^3/uL (1.2-6.7); Bands % 9; Metamyelocytes % 3; Myelocytes % 1; Platelet Count 63 10^3/uL (130-400)
[2022-09-01 11:09] LABS: Anisocytosis 2+; Diff Comment Manual Differential; Macrocytosis 2+; Polychromasia Present
--- NOTE | 2022-09-01 14:27 | CHAPLAIN ---
Janice was in bed when I visited. She had three family members with her. Janice said she had a blood clot in her arm recently and added that she may be here for several more weeks. She seems to be comfortable here will continue to visit.
[2022-09-01] MEDS: Omnipaque 350 MG/ML 100 ML BTL IJ (14:50)
[2022-09-01] MEDS: Normal Saline - Diluent 50 ML VIAL IJ (14:51)
[2022-09-01 15:14] VITALS: BP 137/71; PULSE 94; RESP 16; TEMP 37.5; O2SAT 97
--- NOTE | 2022-09-01 18:34 | W.PM.PROGNOT ---
Date of Service Date of service: 09/01/22 Time of Service: 18:34 Assessment and Plan Assessment and plan (1) Pleuritic chest pain: Status: Acute Assessment and plan: In setting of bacteremia as well as thrombocytopenia with mechanical DVT ppx only. No pulmonary embolism on CTA chest. Cont. tele. Troponin neg. (2) Staphylococcus aureus bacteremia: Status: Acute Assessment and plan: Sepsis, present on admission. Due to MSSA with evidence of septic arthritis L knee. Blood cx 08/23, 08/25, 08/27 , 08/29 > midline removed > 08/31 all positive for MSSA TTE w/o evidence of vegetations. Will need CHIARA if todays set of cultures is still positive. Spoke with ID at [facility] [place]; recommend CT abd/ WBC normalized and CRP better. Continue oxacillin. Trend CRP, procalcitonin. Procal 0.4. (3) Septic arthritis of knee, left: Status: Acute Assessment and plan: S/p washout 08/24/22. As above Continue working with PT. Qualifiers: Septic arthritis organism: staphylococcal Qualified Code(s): M00.062 - Staphylococcal arthritis, left knee (4) ELVIA (acute kidney injury): Status: Resolved Assessment and plan: Prerenal, in setting of sepsis, resolved. Cr is 1.1 today. Monitor with administration of IV contrast. (5) Anemia of chronic disease: Status: Acute Assessment and plan: H/H down to 7.6 > 7.4 > 7.7>7.4 Heme positive. Replete folate. (6) Hyperbilirubinemia: Status: Acute Assessment and plan: In setting of cirrhosis, sepsis, ?shock liver. US RUQ shows a functional TIPS. Continue to monitor. (7) Cirrhosis of liver: Status: Chronic Assessment and plan: As above. Resume diuretics (8) Hypocalcemia: Status: Acute Assessment and plan: Corrects to normal when low albumin taken into account. (9) DVT prophylaxis: Status: Acute Assessment and plan: SCDs (10) Discharge planning issues: Status: Acute Assessment and plan: Full code Continues to require hospitalization Subjective Subjective Patient reports: no new complaints, tolerating a regular diet and afebrile; denies diarrhea, nausea or vomiting Interval history since last seen: Working well with PT; ambulating better. Exam Narrative Exam Narrative: General: Middle-aged female; conversant and pleasant. NAD HEENT: Sclera clear. MMM Heart: RRR, +FREDY Lungs: CTAB Abdomen: soft, nontender, nondistended, RLQ ostomy c/d/i Extremities: L knee w/ jo-wrap / decreased swelling. trace edema L foot/ankle Objective Last Vital Signs Temp 37.5 C 09/01/22 15:14 Pulse 94 H 09/01/22 15:14 Resp 16 09/01/22 15:14 BP 137/71 09/01/22 15:14 Pulse Ox 97 09/01/22 15:14 Laboratory Results - last 24 hr 09/01/22 09/01/22 06:55 10:20 WBC 6.60 RBC 1.92 L Hgb 7.4 L Hct 22.2 L MCV 116 H MCH 38.5 H MCHC 33.3 RDW 18.7 H Plt Count 63 L MPV 10.3 Immature Gran % See Differential Neutrophils % 67.0 Band Neutrophils % 9 Lymphocytes % 11.0 Monocytes % 7.0 Eosinophils % 2.0 Basophils % 0.0 Metamyelocytes % 3 Myelocytes % 1 Nucleated RBC % 1.0 H Absolute Neutrophils 5.02 Absolute Lymphocytes 0.73 L Absolute Monocytes 0.46 Absolute Eosinophils 0.13 Absolute Basophils 0.00 RBC Morphology See Below Polychromasia Present Anisocytosis 2+ Macrocytosis 2+ C-Reactive Protein 3.03 H Time Spent with Patient Time Spent with Patient: 25-34 minutes Time was spent: preparing to see the patient(eg.review tests), obtaining and/or reviewing separately otained hiistory, ordering medications,tests, procedures, referring, communicating with other health medicare compliance auditor, indepentently interpreting results, counseling the patient and care coordination
--- NOTE | 2022-09-01 19:07 | W.PM.PROGNOT ---
Date of Service Date of service: 09/01/22 Time of Service: 16:00 Assessment and Plan Assessment and plan (1) Septic arthritis of knee, left: Status: Acute Assessment and plan: Janice is a 56-year-old who is about a week status post left knee arthroscopic washout with synovectomy. In regards to the knee, I think she is doing fine. She has a significantly improved clinical examination where she can move the knee and she is able to ambulate. The soreness would be expected given the septic arthritis about the left knee. It is also possible that this may lead to some early arthritic change and some level of inflammation in the knee. However, her clinical exam is not that of a recurrent infection. She has had continued positive blood cultures but I highly doubt that the knee is responsible for this. I recommend removing the sutures in the next 5 to 7 days. She does not need a dressing on the knee. Continue physical therapy. Weightbearing as tolerated. Qualifiers: Septic arthritis organism: staphylococcal Qualified Code(s): M00.062 - Staphylococcal arthritis, left knee Subjective Subjective Interval history since last seen: Janice reports be doing much better in regards to the left knee. She still has some soreness of the left knee but she is able to independently ambulate to the bathroom. She has been able to work with physical therapy and try to increase her ambulatory capacity. However, she does find that trying to go for a longer walk does cause some soreness and pain about the left knee. However, she states that things are 100% better than where she was from before the surgery. She was unable to bear weight or move the left knee. She has had no drainage from the wounds. She has had no signs of erythema around the leg. She has been able to move independently within the bed without significant left knee pain. Exam Narrative Exam Narrative: Sitting in the bed. No acute distress. Alert and oriented x3. Evaluation of left leg shows well approximated portal sites. No erythema. No significant bruising. Minimal swelling around the left knee. She is able to straight leg raise. She actively can move the knee from 5 to 95 degrees. Passive range of motion this arc does not cause pain deeper flexion does seem to cause some discomfort anteriorly. No pain to palpation along the femur or the tibia. Objective Last Vital Signs Temp 37.1 C 09/01/22 23:35 Pulse 92 H 09/01/22 23:35 Resp 16 09/01/22 23:35 BP 134/68 09/01/22 23:35 Pulse Ox 98 09/01/22 23:35 Laboratory Results - last 24 hr 09/01/22 09/01/22 06:55 10:20 WBC 6.60 RBC 1.92 L Hgb 7.4 L Hct 22.2 L MCV 116 H MCH 38.5 H MCHC 33.3 RDW 18.7 H Plt Count 63 L MPV 10.3 Immature Gran % See Differential Neutrophils % 67.0 Band Neutrophils % 9 Lymphocytes % 11.0 Monocytes % 7.0 Eosinophils % 2.0 Basophils % 0.0 Metamyelocytes % 3 Myelocytes % 1 Nucleated RBC % 1.0 H Absolute Neutrophils 5.02 Absolute Lymphocytes 0.73 L Absolute Monocytes 0.46 Absolute Eosinophils 0.13 Absolute Basophils 0.00 RBC Morphology See Below Polychromasia Present Anisocytosis 2+ Macrocytosis 2+ C-Reactive Protein 3.03 H Time Spent with Patient Time Spent with Patient: 25-34 minutes Time was spent: referring, communicating with other health respiratory care faculty, indepentently interpreting results, counseling the patient and care coordination
[2022-09-01 23:35] VITALS: BP 134/68; PULSE 92; RESP 16; TEMP 37.1; O2SAT 98
[2022-09-02] MEDS: HYDROmorphone 2 MG/ML SYR IVP ×3 (03:27→17:43)
[2022-09-02 07:14] LABS: HCT 22.2 % (36.0-46.0); MCH 38.3 pg (27.0-33.0); MCHC 33.3 % (32.0-36.0); MCV 115 fL (80-95); RBC 1.93 10^6/uL (3.93-5.22); RDW 19.4 % (11.7-14.6); RDW-SD 78.7 fL; WBC 8.45 10^3/uL (4.4-10.8)
[2022-09-02 07:24] LABS: Anion Gap 9.9 mmol/L (3-11); BUN 20 mg/dL (7-18); CO2 19.1 mmol/L (21.0-32.0); Chloride 106 mmol/L (98-107); Estimated GFR 66.12 (mL/min/1.73m2); Glucose 77 mg/dL (74-106); Potassium 3.8 mmol/L (3.5-5.1); Sodium 135 mmol/L (136-145)
[2022-09-02 07:39] VITALS: BP 95/47; PULSE 62; RESP 18; TEMP 36.1; O2SAT 96
[2022-09-02] MEDS: Insulin Glargine 300 UNITS/3 ML PEN 60 UNITS SC ×2 (07:58→20:18)
[2022-09-02] MEDS: Furosemide 20 MG TAB PO (07:59)
[2022-09-02] MEDS: Pantoprazole 40 MG VIAL IVP ×2 (07:59→20:17)
[2022-09-02] MEDS: Folic Acid 1 MG TAB PO (07:59)
[2022-09-02] MEDS: Spironolactone 50 MG TAB PO (07:59)
[2022-09-02 08:23] LABS: HGB 7.4 g/dL (11.2-15.7); Platelet Count 78 10^3/uL (130-400)
[2022-09-02 08:24] LABS: Absolute Basophil Count 0.08 10^3/uL (0.0-0.2); Absolute Eosinophil Count 0.34 10^3/uL (0.0-0.7); Absolute Lymphocyte Count 1.44 10^3/uL (1.2-3.4); Absolute Neutrophil Count 4.99 10^3/uL (1.2-6.7); Bands % 4; Diff Comment Manual Differential; Hypochromasia 2+; Macrocytosis 2+; Metamyelocytes % 5; Myelocytes % 1; Polychromasia Present
[2022-09-02] MEDS: Insulin Aspart 300 UNITS/3 ML PEN SC ×6 (09:15→22:20)
--- NOTE | 2022-09-02 09:48 | CMPROGNOTE_ITS ---
Date of service: 09/02/22 Time of Service: 09:48 Care Management Progress Note Progress Note Text Progress Note Text: S/O: Janice was sitting up in bed visiting with family when CM met with her. She shared that she continues to feel well and that she is able to tolerate some weight on her injured knee. Jan[place] still [place] [facility] [place] CHIARA that is needed to rule out endocarditis. Janice has persistent bacteremia with no focal site of infection identified. CM continues to follow. A: Janice is a 56 year old woman admitted on 08/23/22 with sepsis from an infected knee P: Janice has S.aureus bacteremia and will need prolonged IV ABX therapy (6-8 weeks) possible. CM will?assist with the coordination of those services either through outpatient infusions, home infusions or swing bed. Janice's preference would be to do home infusions.?CM will support Janice and continue to assess for discharge planning needs.
[2022-09-02 15:34] VITALS: BP 115/64; PULSE 99; RESP 18; TEMP 37.6; O2SAT 96
--- NOTE | 2022-09-02 17:56 | PGE_ITS ---
Date of Service Date of service: 09/02/22 Time of Service: 17:56 Assessment and Plan Assessment and plan (1) Pleuritic chest pain: Status: Acute Assessment and plan: Resolved. In setting of bacteremia as well as thrombocytopenia with mechanical DVT ppx only. No pulmonary embolism on CTA chest. Cont. tele. Troponin neg. (2) Staphylococcus aureus bacteremia: Status: Acute Assessment and plan: Sepsis, present on admission. Due to MSSA with evidence of septic arthritis L knee. Blood cx 08/23, 08/25, 08/27 , 08/29 > midline removed > 08/31 all positive for MSSA TTE w/o evidence of vegetations. Will need CHIARA if todays set of cultures is still positive. Spoke with ID at [facility] on 09/01; recommend CT abd/pelvis. CT w/o evidence of source of infection such as an abscess. Today, 09/02/22, spoke with both [facility] and [facility] transfer centers and neither were able to accept her in transfer d/t capacity. Pt does not want to be transferred beyond [facility] or [facility] WBC normalized and CRP better. Continue oxacillin. Trended CRP; now flat in the 3's. Procal 0.4. (initially was 0.7). (3) Septic arthritis of knee, left: Status: Acute Assessment and plan: S/p washout 08/24/22. As above Continue working with PT. Ortho following. Qualifiers: Septic arthritis organism: staphylococcal Qualified Code(s): M00.062 - Staphylococcal arthritis, left knee (4) ELVIA (acute kidney injury): Status: Resolved Assessment and plan: Prerenal, in setting of sepsis, resolved. Cr is 1.0 today. (5) Anemia of chronic disease: Status: Acute Assessment and plan: H/H down to 7.6 > 7.4 > 7.7>7.4>7.4 Some decrease in HGB likely d/t freq. phlebotomy particularly for blood cultures. Heme positive. Replete folate. (6) Hyperbilirubinemia: Status: Acute Assessment and plan: In setting of cirrhosis, sepsis, ?shock liver. US RUQ shows a functional TIPS. Continue to monitor. (7) Cirrhosis of liver: Status: Chronic Assessment and plan: As above. Resume diuretics (8) Hypocalcemia: Status: Acute Assessment and plan: Corrects to normal when low albumin taken into account. (9) DVT prophylaxis: Status: Acute Assessment and plan: SCDs (10) Discharge planning issues: Status: Acute Assessment and plan: Full code Continues to require hospitalization Cont to discuss transfer with [facility] and [facility] Subjective Subjective Patient reports: no new complaints, tolerating a regular diet and afebrile; denies nausea, vomiting or shortness of breath Interval history since last seen: Walking in room with standby assist / PT. Exam Narrative Exam Narrative: General: Middle-aged female; conversant and pleasant. NAD HEENT: Sclera clear. MMM Heart: RRR, +FREDY Lungs: CTAB Abdomen: soft, nontender, nondistended, RLQ ostomy c/d/i Extremities: L knee w/ jo-wrap / decreased swelling. trace edema L foot/ankle Objective Last Vital Signs Temp 37.6 C H 09/02/22 15:34 Pulse 99 H 09/02/22 15:34 Resp 18 09/02/22 15:34 BP 115/64 09/02/22 15:34 Pulse Ox 96 09/02/22 15:34 Laboratory Results - last 24 hr 09/02/22 09/02/22 06:30 06:30 WBC 8.45 RBC 1.93 L Hgb 7.4 L Hct 22.2 L MCV 115 H MCH 38.3 H MCHC 33.3 RDW 19.4 H Plt Count 78 L MPV 10.0 Immature Gran % See Differential Neutrophils % 55.0 Band Neutrophils % 4 Lymphocytes % 17.0 Monocytes % 13.0 Eosinophils % 4.0 Basophils % 1.0 Metamyelocytes % 5 Myelocytes % 1 Nucleated RBC % 1.0 H Absolute Neutrophils 4.99 Absolute Lymphocytes 1.44 Absolute Monocytes 1.10 H Absolute Eosinophils 0.34 Absolute Basophils 0.08 RBC Morphology See Below Polychromasia Present Hypochromasia 2+ Macrocytosis 2+ Sodium 135 L Potassium 3.8 Chloride 106 Carbon Dioxide 19.1 L Anion Gap 9.9 BUN 20 H Creatinine 1.0 Est GFR (CKD-EPI 2020) 66.12 Glucose 77 Calcium 7.0 L Time Spent with Patient Time Spent with Patient: 25-34 minutes Time was spent: preparing to see the patient(eg.review tests), obtaining and/or reviewing separately otained hiistory, ordering medications,tests, procedures, referring, communicating with other health career development coordinator/teacher, indepentently interpreting results and care coordination
--- NOTE | 2022-09-02 17:59 | INPN_ITS ---
PT Notes Visit Reasons: Hyperglycemia, ELVIA, Hyperkalemia Physical Therapy Inpatient Progress Note Date: 09/02/2022 Dates of Service: 08/24/2022 through 09/02/2022 PRECAUTIONS: Fall. Standard. WBAT on the left LE with AD. SUBJECTIVE: Verbalizes that she only needs to walk about 30 to 35 feet at home at a time. Feels better in terms of mobility performance. Able to perform bed level exercises on her own. Agreeable to decreasing PT frequency to 3 times a week for continued BLE strengthening. States that she may go to [facility] for management of ongoing infection. OBJECTIVE: IV access through L antecubital area.? Resting in bed. ? BED MOBILITY/TRANSFERS? Rolling L/R: independent Supine-sit: independent? Sit-supine: independent ? Sit-stand: independent ? Stand-sit: independent Bed to toilet seat: independent Toilet seat to bed:? independent GAIT: 60 feet using FWW with WBAT on the L LE with supervision.? Did not appear as fat igued compared to last seen two days ago. ? THEREX: Supine heel slides x10,? only able to bend at the knee about 50 degrees Supine SLR x 5 Quads sets x 10 Slide outs x 10 ? ASSESSMENT:? Independent inside room with FWW, may need supervision for line management only. Only requires PT 3x/week for continued sterngthening to B LE. Patient presents with clinical signs and symptoms consistent with current/admitting diagnoses that have resulted to mobility limitations, gait instability, generalized weakness, and overall ADL decline as demonstrated by the following impairment level findings: 1.? Decreased strength to L hip and knee major muscle groups 2.? Impaired sitting/standing balance 3.? Impaired activity tolerance Impairments are contributing to the following functional limitations: 1.? Increased completion time for mobility ADL performance 2.? Increased risk for falls 3.? Difficulty with managing steps alone safely Patient is assessed as a 97503 moderate complexity based on the following: History: 56-year-old female with past medical history as indicated above Examination: Demonstrable impairment in strength, balance, and mobility level with underlying impairments and functional limitations as exhibited above as well as deficit score of 23% utilizing the [facility] Mobility Inpatient Short Form Presentation: Evolving Decision Makin moderate complexity Goals: Goals X1 week 1. Supine-Sit independent MET 2. Sit-Supine independent MET 3. Sit-Stand independent MET 4. Stand-Sit independent with FWW MET 5. Bed-Chair independent with FWW MET 6. Chair-Bed independent with FWW MET 7. Independent gait on level surface with use of FWW for at least 300 feet without report of pain nor dyspnea NOT MET 8. Independent stair negotiation while holding onto B rails for at least 3 steps without report of pain nor dyspnea NOT MET 9. Independent with home exercise program NOT MET 10. Good static and dynamic standing balance/tolerance NOT MET PLAN OF CARE/TREATMENT: -1x/day, 3 days/week x 1 week. -Plan of care has been reviewed with the RADIO TIME SALESPERSON providing the service under Physical Therapy direction. -Pre-medicate for pain. -Initiate Physical Therapy intervention for pain management as needed, strengthening, bed mobility, transfers, gait, stairs, balance training, and use of assistive device.?Per orthopod,? gently progress mobility. DISCHARGE RECOMMENDATIONS: [] ? Home with no services [] [X] ? Home with services. Patient will benefit from home health PT services in order to progress mobility level using least restrictive assistive ambulatory device, assess home safety, identify additional equipment needs, and establish a functional maintenance program that will increase ability of patient to remain at home. [] ? Home with outpatient PT [] [] ? SNF for continued rehabilitation [] [] ? Public Relations Account Supervisor Care [] [] ? SNF versus LTC based on ability to participate and progress [] PLAN: Progress with balance training, global strengthening and general conditioning for improved safety, mobility and activity tolerance. TREATMENT CODE/TIME: 58996 x 18 minutes beginning at 11:42 AM.?
[2022-09-02 23:22] VITALS: BP 114/65; PULSE 85; RESP 18; TEMP 36.1; O2SAT 97
[2022-09-03] MEDS: HYDROmorphone 2 MG/ML SYR IVP ×4 (01:31→19:36)
[2022-09-03 07:20] LABS: Absolute Basophil Count 0.02 10^3/uL (0.0-0.2); Absolute Eosinophil Count 0.05 10^3/uL (0.0-0.7); Absolute Lymphocyte Count 0.95 10^3/uL (1.2-3.4); Absolute Monocyte Count 0.56 10^3/uL (0.1-0.8); Basophils % 0.3; Eosinophils % 0.7; HCT 22.5 % (36.0-46.0); HGB 7.6 g/dL (11.2-15.7); Immature Grans % 5.7; Lymphocytes % 13.6; MCH 39.2 pg (27.0-33.0); MCHC 33.8 % (32.0-36.0); MCV 116 fL (80-95); MPV 9.9 fL (8.0-11.0); Neutrophils % 71.7; RBC 1.94 10^6/uL (3.93-5.22); RDW 19.7 % (11.7-14.6); RDW-SD 81.8 fL; WBC 6.98 10^3/uL (4.4-10.8)
[2022-09-03 07:38] LABS: ALT 17 U/L (14-59); AST 48 U/L (15-37); Albumin 1.2 g/dL (3.4-5.0); Alkaline Phosphatase 98 U/L (46-116); Anion Gap 10.3 mmol/L (3-11); BUN 20 mg/dL (7-18); Bilirubin, Total 4.8 mg/dL (0.2-1.0); CO2 19.7 mmol/L (21.0-32.0); CREATININE 1.2 mg/dL (0.55-1.02); Chloride 105 mmol/L (98-107); Estimated GFR 53.13 (mL/min/1.73m2); Glucose 105 mg/dL (74-106); Potassium 3.7 mmol/L (3.5-5.1); Sodium 135 mmol/L (136-145); Total Protein 5.3 g/dL (6.4-8.2)
[2022-09-03 07:56] LABS: Diff Comment Diff Reviewed; Macrocytosis 2+; Platelet Count 75 10^3/uL (130-400); Polychromasia Present
[2022-09-03 08:07] VITALS: BP 126/70; PULSE 93; RESP 18; TEMP 35.9; O2SAT 96
--- NOTE | 2022-09-03 08:36 | CMPROGNOTE_ITS ---
Date of service: 09/03/22 Time of Service: 08:36 Care Management Progress Note Progress Note Text Progress Note Text: S/O: Janice was sitting up in bed when CM met with her. She stated that she continues to do well. She verbalized feeling that she is making slow progress every day. Her knee pain is better and she is feeling more independent. She shared that she has been getting up at 5:30 each morning and giving herself a sponge bath. She stated that she is generally an early riser.Janice still has not been accepted at either [facility] [place] which is necessary to rule out endocarditis. She stated that the doctor told her today that she will rece guillermo the same treatment with or without the CHIARA, but that she will need to have it done at some point in case there is vegetation. Janice had another set of blood cultures drawn this morning. All previous cultures have grown MSSA and the length of antibiotic course cannot be determined until the cultures are no longer positive. A: Janice is a 56 year old woman admitted on 08/23/22 with sepsis from an infected knee P: Janice has S.aureus bacteremia and will need prolonged IV ABX therapy (6-8 weeks) possible. CM will?assist with the coordination of those services either through outpatient infusions, home infusions or swing bed. Janice's preference would be to do home infusions.?CM will support Janice and continue to assess for discharge planning needs.
[2022-09-03] MEDS: Pantoprazole 40 MG VIAL IVP ×2 (08:39→20:49)
[2022-09-03] MEDS: Folic Acid 1 MG TAB PO (08:40)
[2022-09-03] MEDS: Furosemide 20 MG TAB PO (08:40)
[2022-09-03] MEDS: Insulin Aspart 300 UNITS/3 ML PEN SC ×6 (08:43→20:50)
[2022-09-03] MEDS: Spironolactone 50 MG TAB PO (08:43)
[2022-09-03] MEDS: Insulin Glargine 300 UNITS/3 ML PEN 60 UNITS SC ×2 (08:44→20:51)
--- NOTE | 2022-09-03 13:29 | W.PM.PROGNOT ---
Date of Service Date of service: 09/03/22 Time of Service: 13:29 Assessment and Plan Assessment and plan (1) Staphylococcus aureus bacteremia: Status: Acute Assessment and plan: Sepsis, present on admission. Due to MSSA with evidence of septic arthritis L knee. Blood cx 08/23, 08/25, 08/27 , 08/29 > midline removed > 08/31 all positive for MSSA TTE w/o evidence of vegetations, normal LV and RV and no valvulopathy Repeat blood cultures done today (09/02); patient needs CHIARA but not emergently however still should be completed prior to completion of her antibiotics. I explained to patient that irrregardless of her TTE or CHIARA, she needs 6 weeks of targeted antibiotic treatment for MSSA endocarditis but 6 weeks can not be counted until she has her first negative set of blood cultures. Dr. Garcia spoke with ID at [facility] [place] 09[place]; recommend CT abd/pelvis. CT w/o evidence of source of infection such as an abscess per Dr. Garcia. However, she has cholelithiasis (not new as this was seen on abdominal US from 08/26) however Dr. Gutierrez is reading this CT as having more pericholecystic fluid than can be accounted for her ascites. She did not have any radiopaque stones in her CBD. I will repeat her abdominal US. 09/02/22, Dr. Garcia spoke with both [facility] and [facility] transfer centers and neither were able to accept her in transfer d/t capacity. Pt does not want to be transferred beyond [facility] or [facility]. I reached out again to [facility] transfer center and they have no medicine beds and can not accept transfer. Cardiology will not accept the patient on their service. WBC normalized and CRP better. Continue oxacillin 2 gm iv q4h. Per patient her insurance will not fully cover home antibiotic infusions. She refuses to go to SNF, only wants to swing bed here. I told her that this may or may not be an option depending on our bed census. I told her that first we will try for acute transfer to tertiary center and if not possible then try to arrange CHIARA. I will discuss w/ CM regarding viability of home infusion on a continuous pump of either oxacillin or ancef. Trended CRP; now flat in the 3's. Procal 0.4. (initially was 0.7). Professional time spent reviewing the chart, inteviewing the patient, making attempted phone call to family (no answer/unable to leave message d/t voice mail full), calls to [facility], discussion w/ staff, examination of patient, signout from Dr. Garcia and putting in orders and documentation of care, all told was over 45 minutes. (2) Septic arthritis of knee, left: Status: Acute Assessment and plan: S/p washout 08/24/22. As above Continue working with PT. Ortho following. Qualifiers: Septic arthritis organism: staphylococcal Qualified Code(s): M00.062 - Staphylococcal arthritis, left knee (3) ELVIA (acute kidney injury): Status: Resolved Assessment and plan: Prerenal, in setting of sepsis, resolved. Cr is 1.0 today. (4) Anemia of chronic disease: Status: Acute Assessment and plan: H/H down to 7.6 > 7.4 > 7.7>7.4>7.4 Some decrease in HGB likely d/t freq. phlebotomy particularly for blood cultures. Heme positive. Replete folate. (5) Hyperbilirubinemia: Status: Acute Assessment and plan: In setting of cirrhosis, sepsis, ?shock liver. US RUQ shows a functional TIPS. Repeat her US in light of Dr. Gutierrez's reading of probable acute cholecystitis. Clinically she does not have cholecystitis even though her CT and her US shows gall stones. (6) Cirrhosis of liver: Status: Chronic Assessment and plan: As above. Resume diuretics (7) Hypocalcemia: Status: Acute Assessment and plan: Corrects to normal when low albumin taken into account. (8) DVT prophylaxis: Status: Acute Assessment and plan: SCDs (9) Discharge planning issues: Status: Acute Assessment and plan: Full code Continues to require hospitalization Cont to discuss transfer with [facility] and [facility], patient does not want transfer to other [facility] tertiary care centers, although family has expressed frustration as to why she has not been sent to [facility]. If [facility] still unable to accept then I will revisit transfer further afield w/ the patient. Subjective Subjective Interval history since last seen: No new complaints. Knee pain is improving. Able to ambulate w/ FWW independently although staff is still encouraging her to have stand by assistance to avoid falls. No fevers. Last blood c&s was still positive for MSSA as of 08/31. Repeat blood cultures drawn today. I called [facility] this afternoon and they still have no beds for med/surg transfers to hospitalist service and cardiology will not accept her for transfer to their service and they will not peform a down and back for CHIARA. I will try [facility] tomorrow however she may have to wait until dc to have her CHIARA. Clinically, she is not in any acute valvular distress i.e. no acute AI or MR, CHF, so doubt that she has severe valvulopathy for endocarditis, this CHIARA is not emergent. Nevertheless, the fact that she has persistent MSSA bacteremia warrants CHIARA. Extesive workup for source has been perforemed w/ no etiology other than her septic knee she presented w/ on admission. Exam Narrative Exam Narrative: Obese white female who appears slightly icteric but better than I recall her looking when she was admitted. She is alert and oriented x 3 and in no acute discomfort Lungs: clear Heart: loud systolic murmur grade 3/6 over precordium but loudest over aortic outflow tract and w radiation to base of both carotid arteries Abdomen: soft, nontender Extremities: no redness or increased warmth over her left knee, surgical wounds from knee wash out are healing, no tenderness or crepitus w/ palpation and no pain w/ PROM, intact pedal pulses and no edema Objective Last Vital Signs Temp 35.9 C L 09/03/22 08:07 Pulse 93 H 09/03/22 08:07 Resp 18 09/03/22 08:07 BP 126/70 09/03/22 08:07 Pulse Ox 96 09/03/22 08:07 Laboratory Results - last 24 hr 09/03/22 09/03/22 06:40 06:40 WBC 6.98 RBC 1.94 L Hgb 7.6 L Hct 22.5 L MCV 116 H MCH 39.2 H MCHC 33.8 RDW 19.7 H Plt Count 75 L MPV 9.9 Immature Gran % 5.7 Neutrophils % 71.7 Lymphocytes % 13.6 Monocytes % 8.0 Eosinophils % 0.7 Basophils % 0.3 Nucleated RBC % 0.0 Absolute Neutrophils 5.00 Absolute Lymphocytes 0.95 L Absolute Monocytes 0.56 Absolute Eosinophils 0.05 Absolute Basophils 0.02 RBC Morphology See Below Polychromasia Present Macrocytosis 2+ Sodium 135 L Potassium 3.7 Chloride 105 Carbon Dioxide 19.7 L Anion Gap 10.3 BUN 20 H Creatinine 1.2 H Est GFR (CKD-EPI 2020) 53.13 Glucose 105 Calcium 7.0 L Total Bilirubin 4.8 H AST 48 H ALT 17 Alkaline Phosphatase 98 Total Protein 5.3 L Albumin 1.2 L Time Spent with Patient Time Spent with Patient: 35-49 minutes Time was spent: preparing to see the patient(eg.review tests), obtaining and/or reviewing separately otained hiistory, ordering medications,tests, procedures, referring, communicating with other health point of care technician, indepentently interpreting results, counseling the patient and care coordination
[2022-09-03 15:06] VITALS: BP 123/66; PULSE 89; RESP 16; TEMP 37.1; O2SAT 95
--- NOTE | 2022-09-03 17:43 | PHA.REVIEW2 ---
Pharmacy Admission Review - Admission Clinical Review (Last Reviewed 08/23/22 @ 11:27 by Justin Soliz MD) Pleuritic chest pain (Acute) Staphylococcus aureus bacteremia (Acute) Hypotension (Acute) Leukocytosis (Acute) Coagulopathy (Acute) Hypoproteinemia (Acute) Hypocalcemia (Acute) Hyperglycemia (Acute) Hyponatremia (Acute) Lactic acidosis (Acute) Gram-positive cocci bacteremia (Acute 08/23/22) Septic arthritis of knee, left (Acute ~08/09/22) Hyperbilirubinemia (Acute) Hepatorenal syndrome (Acute) Acute dehydration (Acute) Anemia of chronic disease (Acute) DVT prophylaxis (Acute) Discharge planning issues (Acute) codeine Adverse Reaction (Unknown, Unverified 08/22/22 21:37) unable to take related to colon removal ibuprofen Adverse Reaction (Unknown, Unverified 08/22/22 21:37) unable to take related to colon removal Resuscitation Status Full Code Height 5 ft 4 in Weight 102.5 kg - Renal Dosing Renal Dosing: BUN 20 mg/dL (7-18) H 09/03/22 06:40 Creatinine 1.2 mg/dL (0.55-1.02) H 09/03/22 06:40 Medications needing adjustments: Reviewed List of meds needing interventions: eCrCl 61 ml/min; all orders dosed appropriately - Anticoagulation Anticoagulation: Hgb 7.6 g/dL (11.2-15.7) L 09/03/22 06:40 Hct 22.5 % (36.0-46.0) L 09/03/22 06:40 Plt Count 75 10^3/uL (130-400) L 09/03/22 06:40 INR 1.6 (0.9-1.1) H 08/24/22 06:20 Creatinine 1.2 mg/dL (0.55-1.02) H 09/03/22 06:40 DVT Prophylaxis: N/A (SCDs only) Therapeutic Anticoagulation: N/A - Opiate Usage Evaluate Pain Scale/Pains Meds: Reviewed Scheduled Bowel Reg ordered if on Opiates?: No - Relevant Labs Sodium 135 mmol/L (136-145) L 09/03/22 06:40 Potassium 3.7 mmol/L (3.5-5.1) 09/03/22 06:40 Chloride 105 mmol/L (98-107) 09/03/22 06:40 Phosphorus 4.2 mg/dL (2.6-4.7) 08/23/22 08:08 Magnesium 2.0 mg/dL (1.8-2.4) 08/29/22 07:25 C-Reactive Protein 3.03 mg/dL (0.0-0.3) H 09/01/22 06:55 - DM Control DM Control: Glucose 105 mg/dL (74-106) 09/03/22 06:40 Finger Stick Blood Glucose 246 Finger Stick Blood Glucose 246 Finger Stick Blood Glucose 246 Finger Stick Blood Glucose 182 Finger Stick Blood Glucose 182 - Cardiac Review Cardiac Review: Troponin I < 50 ng/L (<or=60) 08/28/22 20:13 NT-Pro-B Natriuret Pep 350 pg/mL (<300) H 08/31/22 10:00
[2022-09-03 19:51] VITALS: BP 100/60; PULSE 86; RESP 16; TEMP 36.6; O2SAT 95
--- NOTE | 2022-09-04 | DI.US_ITS ---
Exam(s) US EXTREMITY VENOUS BI EXAM: US EXTREMITY VENOUS BI CLINICAL HISTORY: bilateral leg edema; pain TECHNIQUE: Grayscale, color, and doppler imaging of the deep venous system of both lower extremities was performed. COMPARISON: None FINDINGS: There is no evidence of intraluminal thrombus and there is normal compression and augmentation demons trated within the common femoral veins, femoral veins, and popliteal veins of both lower extremities. In the calves the interrogated veins also exhibit normal compression/ augmentation properties. The greater saphenous veins also appear patent as do the saphenofemoral junctions bilaterally.. IMPRESSION: 1. No ultrasound evidence of DVT in either lower extremity. DATA REPOSITORY:
--- NOTE | 2022-09-04 | DI.US_ITS ---
APPROVED REPORT EXAM: Comprehensive 2D, Doppler, and color-flow Echocardiogram Patient Location: In-Patient Room/Bed: [address] Postal Carrier: Angelina Schwartz RDCS (AE) Indications: Heart murmur, MSSA bacteremia, r/o mr follow up to 08/24/22 echo Conclusion Normal left ventricular wall thickness and chamber size. Ejection fraction is 65%. Wall motion is n ormal Normal right ventricular size and systolic function Both atria are normal in size No structural or hemodynamically significant valvular disease is identified No valvular vegetations are noted Wall motion Left Ventricle The left ventricular systolic function is normal. The left ventricular ejection fraction is within th e normal range. There is normal LV segmental wall motion. There is no ventricular septal defect visua lized. LVEF is 64%. Right Ventricle The right ventricle is normal size. The right ventricular systolic function is normal. Atria The left atrium size is normal. The right atrium size is normal. The interatrial septum is intact wit h no evidence for an atrial septal defect. Aortic Valve The aortic valve is normal in structure. No aortic regurgitation is present. There is no aortic valv ular vegetation. Mitral Valve The mitral valve is normal in structure. Trace to mild mitral regurgitation. There is no evidence of mitral valve vegetations. Tricuspid Valve The tricuspid valve is normal in structure. Trace tricuspid regurgitation. Unable to assess PA pressu re. There is no tricuspid valve vegetations. Pulmonic Valve The pulmonary valve is normal in structure. There is no pulmonic valve vegetations. Pericardium There is no pericardial effusion. 2D Dimensions LVEF (Driscoll's) 64.26 % F: 54 - 74 LV Vol A2C d MOD 142.4 mL LV Volume 95.73 mL F: 46 - 106 LV Vol A4C d MOD 115.6 mL LV Volume Index 46.47 mL/m2 F: 29 - 61 LA vol/ BSA A2C s A-L 36.2 mL/m2 LV Vol Biplane MOD 128.8 mL LA vol/ BSA A4C s A-L 32.9 mL/m2 LA Vol/ BSA Biplane s A-L 34.9 mL/m2 LA Area A4C s MOD 21.69 cm2 LA Area A2C s MOD 22.51 cm2 LV EF A4C MOD 64.5 % LV EF A2C MOD 64.2 % LV EF Biplane MOD 64.3 % SV 82.78 mL SV Index 40.26 mL/m2
[2022-09-04] MEDS: HYDROmorphone 2 MG/ML SYR IVP ×2 (02:40→09:28)
[2022-09-04 06:17] VITALS: BP 101/64; PULSE 96; RESP 18; TEMP 36; O2SAT 99
[2022-09-04 07:45] VITALS: BP 115/64; PULSE 96; RESP 16; TEMP 37; O2SAT 95
--- NOTE | 2022-09-04 08:00 | DI.US_ITS ---
Exam(s) US ABDOMEN EXAM: US ABDOMEN CLINICAL HISTORY: abnormal CT TECHNIQUE: Ultrasound of complete upper abdomen performed using standard protocol. COMPARISON: US US UPPER EXTREMITY VENOUS RT from 08/31/[address] ABDOMEN PELVIS W from 09/01/2022 FINDINGS: There is no obvious ascites evident. LIVER: Tips stent noted with vascular flow therein. Not occluded. No significant focal hepatic lesi ons. GALLBLADDER/BILIARY: Gallstones noted. Gallbladder wall thickness is upper normal but there is some pericholecystic fluid noted. The common hepatic duct isnot dilated, measuring 4mm at the level of edelmira hepatis. PANCREAS: There is no evidence of pancreatic mass nor dilatation of the pancreatic duct. SPLEEN: Spleen size slightly. No intrasplenic lesions. KIDNEYS:Kidneys exhibit normal size with no evidence of solid mass, calculus, nor hydronephrosis. No cortical cysts evident. ABDOMINAL AORTA: There is no evidence of abdominal aortic aneurysm. IVC: Normal diameter where visualized. IMPRESSION: 1. Cirrhotic appearing liver with patent TIPS stent. No ominous focal hepatic lesions 2. Cholelithiasis. Minimal pericholecystic fluid. CBD not dilated. 3. No obvious ascites. DATA REPOSITORY:
--- NOTE | 2022-09-04 09:19 | PDOC.CMPRO ---
Date of service: 09/04/22 Time of Service: 09:19 Care Management Progress Note Progress Note Text Progress Note Text: S/O: Janice was sitting up in bed when CM met with her. She informed CM that she had been to radiology for an ultrasound this morning. She has been told that the blood cultures drawn yesterday are negative so far. If they remain negative for another 24 hours, Janice will have a PICC or midline placed. CM will begin the process of determining the out of pocket cost that Janice will incur if she is able to complete her antibiotic therapy with home infusions. Orders were faxed by CM to both [facility] and [facility]. No beds are available at [facility] or [facility] for her to be able to transfer for a CHIARA. A: Janice is a 56 year old woman admitted on 08/23/22 with sepsis from an infected knee P: Janice has S.aureus bacteremia and will need prolonged IV ABX therapy (6-8 weeks) possible. CM will?assist with the coordination of those services either through outpatient infusions, home infusions or swing bed. Janice's preference would be to do home infusions.?CM will support Janice and continue to assess for discharge planning needs.
[2022-09-04] MEDS: Furosemide 20 MG TAB PO (09:29)
[2022-09-04] MEDS: Folic Acid 1 MG TAB PO (09:29)
[2022-09-04] MEDS: Spironolactone 50 MG TAB PO (09:29)
[2022-09-04] MEDS: Pantoprazole 40 MG VIAL IVP ×2 (09:29→21:10)
[2022-09-04] MEDS: Insulin Glargine 300 UNITS/3 ML PEN 60 UNITS SC ×2 (09:31→21:11)
[2022-09-04 10:20] LABS: Abs Immature Grans 0.22 10^3/uL (0.0-0.06); Absolute Basophil Count 0.05 10^3/uL (0.0-0.2); Absolute Eosinophil Count 0.02 10^3/uL (0.0-0.7); Absolute Lymphocyte Count 0.56 10^3/uL (1.2-3.4); Absolute Monocyte Count 0.66 10^3/uL (0.1-0.8); Absolute Neutrophil Count 5.82 10^3/uL (1.2-6.7); Basophils % 0.7; Eosinophils % 0.3; HCT 29.3 % (36.0-46.0); HGB 8.6 g/dL (11.2-15.7); Lymphocytes % 7.6; MCH 38.4 pg (27.0-33.0); MCHC 29.4 % (32.0-36.0); MCV 131 fL (80-95); MPV 10.7 fL (8.0-11.0); Neutrophils % 79.4; Platelet Count 69 10^3/uL (130-400); RBC 2.24 10^6/uL (3.93-5.22); RDW-SD 94.1 fL; WBC 7.33 10^3/uL (4.4-10.8)
[2022-09-04 10:52] LABS: ALT 24 U/L (14-59); AST 59 U/L (15-37); Albumin 1.4 g/dL (3.4-5.0); Alkaline Phosphatase 105 U/L (46-116); Anion Gap 9.2 mmol/L (3-11); BUN 16 mg/dL (7-18); Bilirubin, Total 6.2 mg/dL (0.2-1.0); C-Reactive Protein 3.18 mg/dL (0.0-0.3); CO2 19.8 mmol/L (21.0-32.0); CREATININE 1.1 mg/dL (0.55-1.02); Calcium 7.4 mg/dL (8.5-10.1); Chloride 105 mmol/L (98-107); Estimated GFR 58.97 (mL/min/1.73m2); Glucose 109 mg/dL (74-106); Potassium 3.7 mmol/L (3.5-5.1); Sodium 134 mmol/L (136-145); Total Protein 6.1 g/dL (6.4-8.2)
[2022-09-04 11:23] LABS: Procalcitonin 0.2 ng/mL
[2022-09-04] MEDS: Insulin Aspart 300 UNITS/3 ML PEN SC ×4 (12:50→17:09)
--- NOTE | 2022-09-04 13:10 | PGE_ITS ---
Date of Service Date of service: 09/04/22 Time of Service: 13:10 Assessment and Plan Assessment and plan (1) Staphylococcus aureus bacteremia: Status: Acute Assessment and plan: Initial presentation on August 22 with sepsis secondary to left knee septic arthritis with positive blood cultures for MSSA. Multiple blood cultures were positive again from August 23 as well as a positive joint culture from August 24 and repeat blood cultures from August 25 August 27 August 29 and August 31, 2022. First complete set of negative cultures was from yesterday September 03, 2022. Based on this finding she should complete 6 weeks of targeted antibiotic therapy directed against MSSA 6 weeks would take her through October 15, 2022. She has been on oxacillin since August 27, 2022. Prior to that she was on cefepime and vancomycin since August 23, 2022. Given her history of cirrhosis secondary to Solorzano Ancef would be a better choice and oxacillin. Professional time spent interviewing and examining patient, discussion of goals of care with hospital team (care management, nursing and consulting professionals) was 45 minutes. (2) Septic arthritis of knee, left: Status: Acute Assessment and plan: S/p washout 08/24/22. As above Continue working with PT. Ortho following. Qualifiers: Septic arthritis organism: staphylococcal Qualified Code(s): M00.062 - Staphylococcal arthritis, left knee (3) Anemia of chronic disease: Status: Acute Assessment and plan: H/H down to 7.6 > 7.4 > 7.7>7.4>7.4 >8.6 Some decrease in HGB likely d/t freq. phlebotomy particularly for blood cultures. Heme positive. Replete folate. (4) Hyperbilirubinemia: Status: Acute Assessment and plan: Her hyperbilirubinemia is secondary to her chronic liver disease from SOLORZANO. Repeat ultrasound shows cholelithiasis, minimal pericholecystic fluid, no common bile duct dilatation and a cirrhotic appearing liver with patent TIPS stent. No focal hepatic lesions. (5) Cirrhosis of liver: Status: Chronic Assessment and plan: As above. Resume diuretics however given her persistent lower extremity edema will increase her Lasix from 20 mg daily to 40 mg twice daily and continue her spironolactone at 50 mg daily. (6) Hypocalcemia: Status: Acute Assessment and plan: Corrects to normal when low albumin taken into account. (7) DVT prophylaxis: Status: Acute Assessment and plan: SCDs (8) Discharge planning issues: Status: Acute Assessment and plan: Full code Continues to require hospitalization Patient is medically stable and does not require emergent transfer to tertiary care center. Both [facility] as well as [facility] are at capacity and are unable or unwilling to take her in transfer. This point now that her blood cultures are showing no growth I think the plan will be to set up home infusion of Ancef 2 g IV every 8 hours or continuous infusion pump of 6 g of Ancef every 24 hours for the next 6 weeks and arrange outpatient CHIARA. She can then follow-up with home physical therapy and Occupational Therapy and follow-up with Dr. Soliz as an outpatient. We will arrange to have the PICC line placed once her blood cultures have shown no growth for 48 hours Subjective Subjective Interval history since last seen: Patient complaining of pain behind left knee in her calf and behind the knee worse w/ bending of first getting out of bed. She still has quite a bit of edema in both legs from knees to calfs. Edema in her hands has resolved. I told her that I spoke w/ [facility] yesterday and neither medicine nor cardiology would take her in transfer and [facility] does not perform down and back CHIARA. I called [facility] today and they are at capacity and unable to take her in transfer. I had the call center reach out to cardiology and they spoke w/ Dr. Ranjan Santoyo, who declined to take her for inpatient CHIARA and recommended that we arrange outpatient CHIARA w/ [facility]. I then spoke w/ Rola., Dr. Martinez De Leon, at [facility]. He reviewed her case w/ me. He agrees that ideally she should have CHIARA given her MSSA bacteremia but given that she is improving (she finally had her first negative blood cultures yesterday) and that her TTE did not show any vegetations or valvulopathy, he agreed that an argument can be made for doing the CHIARA as oupatient since it will not change the medical management. He suggested doing a repeat TTE prior to her completion of her antibiotics and this would help to reassure us that no new valvular pathology has developed. I told him that acutally I had been thinking of repeating this as she has a systolic murmur that was not appreciated on admission, although patient says she has had lifelong hx of heart murmur. I explained all of this to the patient. Given her cirrhosis, and the risk of hepatitis from oxacillin, Ancef 2 gm IV Q8HR for 6 weeks begining from yesterday would be the preferred choice of antibiotics. I will have CM work on the logistics in getting a continuous home pump infusion of ancef 6 gm delivered over 24hr period to be repeated daily x 6 weeks i.e. through 10/15/22. We will consult on picc line tomorrow if her cultures remain negative x 48 hr. Exam Narrative Exam Narrative: Janice is sitting up in bed visiting with her family. She is alert and oriented person place time circumstance finishing her lunch. Lungs are clear to auscultation anteriorly posteriorly she has some fine rales no rhonchi or wheezes Heart is regular rate and rhythm she has a harsh systolic murmur across the precordium graded 3 out of 6. Most notable over the aortic outflow tract. Abdomen obese soft and nontender Upper extremities without peripheral edema Lower extremities she has 2+ pitting edema from her knees down to her ankles. Left knee shows no redness in the arthroscopic skin wounds appear to be intact without any drainage. Patient does have some tenderness with flexion of the left knee that tenderness she says is over the patella area but she also feels it behind the knee and into the calf. Told her were going get an ultrasound of her legs. She also needs further diuretics to help remove the excess fluid Objective Last Vital Signs Temp 37 C 09/04/22 07:45 Pulse 96 H 09/04/22 07:45 Resp 16 09/04/22 07:45 BP 115/64 09/04/22 07:45 Pulse Ox 95 09/04/22 07:45 Laboratory Results - last 24 hr 09/04/22 09/04/22 09/04/22 10:10 10:10 10:10 WBC 7.33 RBC 2.24 L Hgb 8.6 L Hct 29.3 L MCV 131 H MCH 38.4 H MCHC 29.4 L D RDW 20.0 H Plt Count 69 L MPV 10.7 Immature Gran % 3.0 Neutrophils % 79.4 Lymphocytes % 7.6 Monocytes % 9.0 Eosinophils % 0.3 Basophils % 0.7 Nucleated RBC % 0.0 Absolute Neutrophils 5.82 Absolute Lymphocytes 0.56 L Absolute Monocytes 0.66 Absolute Eosinophils 0.02 Absolute Basophils 0.05 Sodium 134 L Potassium 3.7 Chloride 105 Carbon Dioxide 19.8 L Anion Gap 9.2 BUN 16 Creatinine 1.1 H Est GFR (CKD-EPI 2020) 58.97 Glucose 109 H Calcium 7.4 L Total Bilirubin 6.2 H AST 59 H ALT 24 Alkaline Phosphatase 105 C-Reactive Protein 3.18 H Total Protein 6.1 L Albumin 1.4 L Procalcitonin 0.2 Time Spent with Patient Time Spent with Patient: 35-49 minutes Time was spent: preparing to see the patient(eg.review tests), ordering medications,tests, procedures, referring, communicating with other health healthcare financial analyst (Calls to [facility] transfer center as well as discussion with infectious disease service from [facility]), indepentently interpreting results, counseling the patient and care coordination
[2022-09-04] MEDS: ceFAZolin 2 GM/50 ML BAG IV ×2 (14:05→21:10)
[2022-09-04 14:40] VITALS: BP 119/64; PULSE 104; RESP 16; TEMP 37.6; O2SAT 95
[2022-09-04] MEDS: Diclofenac 1% Gel 100 GM TUBE TP ×2 (17:08→21:10)
[2022-09-04] MEDS: Furosemide 20 MG TAB 40 MG PO (17:08)
[2022-09-04 23:25] VITALS: BP 104/61; PULSE 85; RESP 16; TEMP 38; O2SAT 95
[2022-09-05] MEDS: ceFAZolin 2 GM/50 ML BAG IV ×3 (05:45→21:43)
[2022-09-05 07:12] LABS: ESR 18 mm/hr (0-30)
[2022-09-05 07:30] LABS: ALT 16 U/L (14-59); AST 48 U/L (15-37); Albumin 1.2 g/dL (3.4-5.0); Alkaline Phosphatase 93 U/L (46-116); Anion Gap 8.1 mmol/L (3-11); BUN 19 mg/dL (7-18); Bilirubin, Total 5.2 mg/dL (0.2-1.0); CO2 19.9 mmol/L (21.0-32.0); CREATININE 1.2 mg/dL (0.55-1.02); Calcium 7.2 mg/dL (8.5-10.1); Chloride 106 mmol/L (98-107); Estimated GFR 53.13 (mL/min/1.73m2); Glucose 103 mg/dL (74-106); Magnesium 1.4 mg/dL (1.8-2.4); Potassium 3.4 mmol/L (3.5-5.1); Sodium 134 mmol/L (136-145); Total Protein 5.3 g/dL (6.4-8.2)
[2022-09-05 07:45] VITALS: BP 106/67; PULSE 73; RESP 17; TEMP 36.2; O2SAT 94
[2022-09-05] MEDS: Diclofenac 1% Gel 100 GM TUBE TP ×4 (09:04→21:45)
[2022-09-05] MEDS: Folic Acid 1 MG TAB PO (09:04)
[2022-09-05] MEDS: Spironolactone 50 MG TAB PO ×2 (09:04→14:25)
[2022-09-05] MEDS: Furosemide 20 MG TAB 40 MG PO (09:04)
[2022-09-05] MEDS: Pantoprazole 40 MG VIAL IVP ×2 (09:04→21:43)
[2022-09-05] MEDS: Insulin Glargine 300 UNITS/3 ML PEN 60 UNITS SC ×2 (10:04→21:45)
[2022-09-05] MEDS: Insulin Aspart 300 UNITS/3 ML PEN SC ×5 (10:04→17:25)
[2022-09-05 12:04] VITALS: BP 109/65; PULSE 74; RESP 18; TEMP 36.7; O2SAT 97
--- NOTE | 2022-09-05 12:38 | W.PM.PROGNOT ---
Date of Service Date of service: 09/05/22 Time of Service: 12:38 Assessment and Plan Assessment and plan (1) Staphylococcus aureus bacteremia: Status: Acute Assessment and plan: Initial presentation on August 22 with sepsis secondary to left knee septic arthritis with positive blood cultures for MSSA. Multiple blood cultures were positive again from August 23 as well as a positive joint culture from August 24 and repeat blood cultures from August 25 August 27 August 29 and August 31, 2022. First complete set of negative cultures was from yesterday September 03, 2022. Based on this finding she should complete 6 weeks of targeted antibiotic therapy directed against MSSA 6 weeks would take her through October 15, 2022. She has been on oxacillin since August 27, 2022. Prior to that she was on cefepime and vancomycin since August 23, 2022. Given her history of cirrhosis secondary to Damon Ancef would be a better choice and oxacillin. Awaiting CM to receive approval for home infusion of Ancef. Patient is tearful and wants to go home. I told her that as soon as we can get home antibiotics set up she can be discharged home Professional time spent interviewing and examining patient, discussion of goals of care with hospital team (care management, nursing and consulting professionals) was 30 minutes. (2) Septic arthritis of knee, left: Status: Acute Assessment and plan: S/p washout 08/24/22. As above Continue working with PT. Ortho following. Qualifiers: Septic arthritis organism: staphylococcal Qualified Code(s): M00.062 - Staphylococcal arthritis, left knee (3) Anemia of chronic disease: Status: Acute Assessment and plan: H/H down to 7.6 > 7.4 > 7.7>7.4>7.4 >8.6 Some decrease in HGB likely d/t freq. phlebotomy particularly for blood cultures. Heme positive. Replete folate. (4) Hyperbilirubinemia: Status: Acute Assessment and plan: Her hyperbilirubinemia is secondary to her chronic liver disease from DAMON. Repeat ultrasound shows cholelithiasis, minimal pericholecystic fluid, no common bile duct dilatation and a cirrhotic appearing liver with patent TIPS stent. No focal hepatic lesions. (5) Cirrhosis of liver: Status: Chronic Assessment and plan: As above. Resume diuretics however given her persistent lower extremity edema, I have changed her oral lasix to iv lasix and added one time dose of zaroxolyn and will increse her spironolactone to 100 mg daily (6) Hypocalcemia: Status: Acute Assessment and plan: Corrects to normal when low albumin taken into account. (7) DVT prophylaxis: Status: Acute Assessment and plan: SCDs (8) Discharge planning issues: Status: Acute Assessment and plan: Full code Continues to require hospitalization Patient is medically stable and does not require emergent transfer to tertiary care center. Both [facility] as well as [facility] are at capacity and are unable or unwilling to take her in transfer. This point now that her blood cultures are showing no growth I think the plan will be to set up home infusion of Ancef 2 g IV every 8 hours or continuous infusion pump of 6 g of Ancef every 24 hours for the next 6 weeks and arrange outpatient CHIARA. She can then follow-up with home physical therapy and Occupational Therapy and follow-up with Dr. Soliz as an outpatient. We will arrange to have the PICC line placed once her blood cultures have shown no growth for 48 hours Subjective Subjective Interval history since last seen: Patient complains of bilateral hand swelling as well as leg/foot edema. This has not improved despite an increase in her oral lasix. She says that her feet hurt when she stands on the bottom of her feet d/t the edema. I asked her if the Tramadol helps w/ her pain and she did not know what I was talking about. She says that the only thing the nurses have been giving her is the Voltaren gel and she says that last night her male nurse rubbed it on her crotch and reported that he thought that it was for yeast. Exam Narrative Exam Narrative: Janice is tearful but otherwise alert and oriented Lungs: clear Heart: RRR w/ harsh grade 3 systolic murmur across the precordium, loudest over aortic outflow Abdomen: obeses, soft, nontender Extremities: trace to 1+ edema of hands, 2+/3- edema of her feet, ankles, and pretibia up to her knees; left knee wound healing well w/out drainage or redness Objective Last Vital Signs Temp 36.7 C 09/05/22 12:04 Pulse 74 09/05/22 12:04 Resp 18 09/05/22 12:04 BP 109/65 09/05/22 12:04 Pulse Ox 97 09/05/22 12:04 Laboratory Results - last 24 hr 09/05/22 09/05/22 06:40 06:40 ESR 18 Sodium 134 L Potassium 3.4 L Chloride 106 Carbon Dioxide 19.9 L Anion Gap 8.1 BUN 19 H Creatinine 1.2 H Est GFR (CKD-EPI 2020) 53.13 Glucose 103 Calcium 7.2 L Magnesium 1.4 L Total Bilirubin 5.2 H AST 48 H ALT 16 Alkaline Phosphatase 93 Total Protein 5.3 L Albumin 1.2 L Time Spent with Patient Time Spent with Patient: 25-34 minutes Time was spent: preparing to see the patient(eg.review tests), ordering medications,tests, procedures, referring, communicating with other health point of care technician, indepentently interpreting results, counseling the patient and care coordination
[2022-09-05] MEDS: traMADol 50 MG TAB 100 MG PO (12:48)
[2022-09-05] MEDS: ALBUMIN HUMAN 25 GM/100 ML BTL IV (14:23)
[2022-09-05] MEDS: metOLazone 2.5 MG TAB PO (14:24)
[2022-09-05] MEDS: Furosemide 40 MG/4 ML VIAL IVP ×2 (14:24→21:43)
[2022-09-05 15:22] VITALS: BP 105/60; PULSE 81; RESP 18; TEMP 36.7; O2SAT 95
--- NOTE | 2022-09-05 18:44 | DI.RAD_ITS ---
Exam(s) XR PORTABLE CHEST AP POST LINE EXAM: XR PORTABLE CHEST AP POST LINE CLINICAL HISTORY: PICC placement verification. TECHNIQUE: 2D digital imaging was performed. COMPARISON: CR XR CHEST 2V PA LATERAL from 03/20/[address] ABDOMEN PELVIS W from 09/01/2022 FINDINGS: Single AP portable view. Heart size is upper normal. The mediastinum is not widened. Distal tip of the left PICC line is in the upper right atrium. TIPS catheter is noted in the liver. No infiltrates nor pleural effusions evident slightly increased pulmonary markings bilaterally and sy mmetrically noted which may be exaggerated by portable supine technique. IMPRESSION: Increased markings both lung sams are probably exaggerated by the portable supine technique. No co nfluent infiltrates. No obvious pleural effusions. Recommend nonportable PA and lateral views when clinically possible.Distal tip of the PICC line is in the upper right atrium. Hepatic TIPS shunt stent noted. DATA REPOSITORY: RADIATION DOSE DELIVERED:
--- NOTE | 2022-09-05 19:09 | DI.VRAD_ITS ---
PROCEDURE INFORMATION: Exam: XR Chest Exam date and time: 09/05/2022 7:00 PM Age: 56 years old Clinical indication: Device placement; Patient HX: Picc line placement; Additional info: Supine image TECHNIQUE: Imaging protocol: Radiologic exam of the chest. Views: 1 view. COMPARISON: CT CHEST PE CTA 08/28/2022 8:36 PM FINDINGS: Tubes, catheters and devices: Left arm PICC projects over upper right atrium in satisfactory position. Lungs: No silvana airspace consolidation on portable imaging. Pleural spaces: No pleural effusion. No pneumothorax. Heart/Mediastinum: Mild cardiomegaly, mild vascular congestion. Bones/joints: No acute fracture. Intraperitoneal space: TIPS projects over right upper quadrant as expected IMPRESSION: 1. Left arm PICC projects over upper right atrium in satisfactory position. 2. Mild cardiomegaly, mild vascular congestion. Dictated and Authenticated by: Virginia Buenrostro MD. Ordering:[facility] Emily Raymond MD
[2022-09-05 22:48] VITALS: BP 145/69; PULSE 82; RESP 18; TEMP 36.8; O2SAT 96
[2022-09-06] VITALS (7 sets, daily range): BP systolic 97–120; BP diastolic 56–65; PULSE 70–81; RESP 16–18; TEMP 36.5–36.9; O2SAT 94–97
[2022-09-06] MEDS: Furosemide 40 MG/4 ML VIAL IVP (05:30)
[2022-09-06] MEDS: ceFAZolin 2 GM/50 ML BAG IV ×3 (05:30→22:06)
[2022-09-06 07:14] LABS: Abs Immature Grans 0.07 10^3/uL (0.0-0.06); Absolute Basophil Count 0.01 10^3/uL (0.0-0.2); Absolute Eosinophil Count 0.06 10^3/uL (0.0-0.7); Absolute Lymphocyte Count 0.96 10^3/uL (1.2-3.4); Absolute Monocyte Count 0.51 10^3/uL (0.1-0.8); Absolute Neutrophil Count 3.22 10^3/uL (1.2-6.7); Basophils % 0.2; Eosinophils % 1.2; HCT 22.1 % (36.0-46.0); HGB 7.4 g/dL (11.2-15.7); Immature Grans % 1.4; Lymphocytes % 19.9; MCH 38.9 pg (27.0-33.0); MCHC 33.5 % (32.0-36.0); MCV 116 fL (80-95); MPV 10.8 fL (8.0-11.0); Monocytes % 10.6; Neutrophils % 66.7; RDW 18.6 % (11.7-14.6); RDW-SD 78.4 fL; WBC 4.83 10^3/uL (4.4-10.8)
[2022-09-06 07:33] LABS: ALT 11 U/L (14-59); AST 45 U/L (15-37); Albumin 1.6 g/dL (3.4-5.0); Alkaline Phosphatase 89 U/L (46-116); Anion Gap 7.5 mmol/L (3-11); BUN 21 mg/dL (7-18); Bilirubin, Direct 3.5 mg/dL (0.0-0.2); Bilirubin, Total 6.1 mg/dL (0.2-1.0); CO2 23.5 mmol/L (21.0-32.0); CREATININE 1.2 mg/dL (0.55-1.02); Calcium 7.7 mg/dL (8.5-10.1); Chloride 104 mmol/L (98-107); Estimated GFR 53.13 (mL/min/1.73m2); Glucose 71 mg/dL (74-106); Magnesium 1.2 mg/dL (1.8-2.4); Sodium 135 mmol/L (136-145); Total Protein 5.5 g/dL (6.4-8.2)
[2022-09-06] MEDS: Pantoprazole 40 MG VIAL IVP (07:48)
[2022-09-06] MEDS: Spironolactone 50 MG TAB 100 MG PO (07:48)
[2022-09-06] MEDS: Diclofenac 1% Gel 100 GM TUBE TP ×4 (07:48→22:06)
[2022-09-06] MEDS: Folic Acid 1 MG TAB PO (07:48)
[2022-09-06 07:51] LABS: Anisocytosis 2+; Diff Comment RBC Morph Reviewed; Macrocytosis 2+; Platelet Count 65 10^3/uL (130-400)
[2022-09-06] MEDS: Folic Acid 1 MG TAB 4 MG PO (08:41)
[2022-09-06] MEDS: Insulin Glargine 300 UNITS/3 ML PEN 40 UNITS SC ×2 (08:42→22:07)
--- NOTE | 2022-09-06 10:26 | PGE_ITS ---
Date of Service Date of service: 09/06/22 Time of Service: 10:26 Assessment and Plan Assessment and plan (1) Staphylococcus aureus bacteremia: Status: Acute Assessment and plan: Initial presentation on August 22 with sepsis secondary to left knee septic arthritis with positive blood cultures for MSSA. Multiple blood cultures were positive again from August 23 as well as a positive joint culture from August 24 and repeat blood cultures from August 25 August 27 August 29 and August 31, 2022. First complete set of negative cultures was from yesterday September 03, 2022. Based on this finding she should complete 6 weeks of targeted antibiotic therapy directed against MSSA 6 weeks would take her through October 15, 2022. She has been on oxacillin since August 27, 2022. Prior to that she was on cefepime and vancomycin since August 23, 2022. Given her history of cirrhosis secondary to Solorzano Ancef would be a better choice and oxacillin. She has now been on Ancef since 09/04. Case was discussed w/ I.D. at [facility] Dr. Jorge De Leon earlier in the week. Awaiting to receive approval for home infusion of Ancef. Patient is tearful and wants to go home. I told her that as soon as we can get home antibiotics set up she can be discharged home Professional time spent interviewing and examining patient, discussion of goals of care with hospital team (care management, nursing and consulting tez johnson) was 30 minutes. (2) Septic arthritis of knee, left: Status: Acute Assessment and plan: S/p washout 08/24/22. As above Continue working with PT. Ortho following. Qualifiers: Septic arthritis organism: staphylococcal Qualified Code(s): M00.062 - Staphylococcal arthritis, left knee (3) Anemia of chronic disease: Status: Acute Assessment and plan: H/H down to 7.6 > 7.4 > 7.7>7.4>7.4 >8.6>7.4 Some decrease in HGB likely d/t freq. phlebotomy particularly for blood cultures. Heme positive, on protonix Will transfuse 1 unit of PRBC today. Folate replacement increased to 5 mg daily, recheck levels in one week along w/ metabolites (HC, MMA) (4) Hyperbilirubinemia: Status: Acute Assessment and plan: Her hyperbilirubinemia is secondary to her chronic liver disease from SOLORZANO. Repeat ultrasound shows cholelithiasis, minimal pericholecystic fluid, no common bile duct dilatation and a cirrhotic appearing liver with patent TIPS stent. No focal hepatic lesions. (5) Cirrhosis of liver: Status: Chronic Assessment and plan: As above. good diuretic response to iv lasix and zarolxoly but now w/ worsening hypokalemia and hypomagnesemia. Will correct w/ oral potassium and iv and oral magnesium. I have increased her spironolactone and will put her back on oral lasix. (6) Hypocalcemia: Status: Acute Assessment and plan: Corrects to normal when low albumin taken into account. (7) DVT prophylaxis: Status: Acute Assessment and plan: SCDs (8) Discharge planning issues: Status: Acute Assessment and plan: Full code Continues to require hospitalization Patient is medically stable and does not require emergent transfer to tertiary care center. Both [facility] as well as [facility] are at capacity and are unable or unwilling to take her in transfer. This point now that her blood cultures are showing no growth I think the plan will be to set up home infusion of Ancef 2 g IV every 8 hours or continuous infusion pump of 6 g of Ancef every 24 hours for the next 6 weeks and arrange outpatient CHIARA. She can then follow-up with home physical therapy and Occupational Therapy and follow-up with Dr. Soliz as an outpatient. PICC line placed yesterday. Subjective Subjective Interval history since last seen: Patient states that her feet and legs do not hurt as much. She can now walk w/out the bottoms of her feet hurting. She diuresed 5.4 liters overnight w/ the iv furosemide and zaroxoly. I told her that I will put her on oral lasix and I increased her spironolactone dose. She is getting more anemic, partly d/t phlebotomies however she has been steadily drifiting down on her hemoglobin. Looking back on her prior anemic workup, it did not appear to be c/w iron deficiency but she has a folate deficiency. She is on folate 1 mg daily. I have increased this to 5 mg daily. I am checking her MMA and Homocysteine levels. Her B12 was normal at the beginning of this month. If she responds to the higher dose of the folic acid her homocysteine levels will decline and within a week he r MCV should start to decrease. However this will take time and I think she would benefit from a transfusion to get her Hb over 8 gm. She is agreeable to this. She has not noticed any melena or hematochezia. She remains on protonix 40 mg IV bid. She does not need this high a dose and may be contributing to her low Mg levels (in addition to that caused by her diuresis). I told her that I am hopeful that we can insurance to cover the home infusion of the Ancef. She understands that her repeat TTE did not show any new changes and she has no evidence for valvulopathy or vegetations on this study. She also understands that a CHIARA can not be arranged while she is an inpatient so we will make the referrals upon discharge. Exam Narrative Exam Narrative: Janice is lying in bed. She just came back from washing her hair. She appears calm, relaxed Skin is icteric Lungs; clear Heart: RRR w/ harsh grade 3/6 systolic murmur heard across the precordium but loudest at the aortic outflow area Abdomen: soft, nontender, nondistended Legs/feet: edema is much improved, now 1+, left knee wound is healing Objective Last Vital Signs Temp 36.5 C 09/06/22 06:15 Pulse 81 09/06/22 06:15 Resp 18 09/06/22 06:15 BP 120/62 09/06/22 06:15 Pulse Ox 97 09/06/22 06:15 Laboratory Results - last 24 hr 09/06/22 09/06/22 06:35 06:35 WBC 4.83 RBC 1.90 L Hgb 7.4 L Hct 22.1 L MCV 116 H D MCH 38.9 H MCHC 33.5 D RDW 18.6 H Plt Count 65 L MPV 10.8 Immature Gran % 1.4 Neutrophils % 66.7 Lymphocytes % 19.9 Monocytes % 10.6 Eosinophils % 1.2 Basophils % 0.2 Nucleated RBC % 0.0 Absolute Neutrophils 3.22 Absolute Lymphocytes 0.96 L Absolute Monocytes 0.51 Absolute Eosinophils 0.06 Absolute Basophils 0.01 RBC Morphology See Below Anisocytosis 2+ Macrocytosis 2+ Sodium 135 L Potassium 3.0 L Chloride 104 Carbon Dioxide 23.5 Anion Gap 7.5 BUN 21 H Creatinine 1.2 H Est GFR (CKD-EPI 2020) 53.13 Glucose 71 L Calcium 7.7 L Magnesium 1.2 L Total Bilirubin 6.1 H Conjugated Bilirubin 3.5 H AST 45 H ALT 11 L Alkaline Phosphatase 89 Total Protein 5.5 L Albumin 1.6 L Time Spent with Patient Time Spent with Patient: 25-34 minutes Time was spent: preparing to see the patient(eg.review tests), ordering medications,tests, procedures, referring, communicating with other health healthcare financial analyst, indepentently interpreting results, counseling the patient and care coordination
[2022-09-06] MEDS: MAGNESIUM SULFATE 4 GM/100 ML BAG IVPB (10:58)
[2022-09-06] MEDS: Potassium Chloride 10 MEQ CAPCR 40 MEQ PO (10:58)
[2022-09-06] MEDS: Torsemide 20 MG TAB PO (11:34)
[2022-09-06] MEDS: Potassium Chloride 20 MEQ TABCR PO ×3 (11:34→22:07)
[2022-09-06] MEDS: Insulin Aspart 300 UNITS/3 ML PEN SC ×3 (12:22→17:31)
[2022-09-06] MEDS: diphenhydrAMINE 25 MG CAP PO (13:59)
[2022-09-06] MEDS: Acetaminophen 325 MG TAB 650 MG PO (13:59)
--- NOTE | 2022-09-06 15:52 | PDOC.CMPRO ---
Date of service: 09/06/22 Time of Service: 15:52 Care Management Progress Note Progress Note Text Progress Note Text: S/O: Janice was sitting up in bed when CM met with her. She continues to show improvement and her last set of blood cultures remain negative. CM send updated notes, including PICC insertion information, to [facility] and [facility] home infusion companies. No information is yet available regarding costs, and precise administration information (bolus vs cassettes). When all information is available, CM will review with Janice so that a firm plan can be made regarding discharge or swingbed. A: Janice is a 56 year old woman admitted on 08/23/22 with sepsis from an infected knee P: Janice has S.aureus bacteremia and will need prolonged IV ABX therapy (6-8 weeks) possible. CM will?assist with the coordination of those services either through outpatient infusions, home infusions or swing bed. Janice's preference would be to do home infusions.?CM will support Janice and continue to assess for discharge planning needs.
[2022-09-06] MEDS: Magnesium Oxide 400 MG TAB 800 MG PO (22:08)
[2022-09-07] MEDS: ceFAZolin 2 GM/50 ML BAG IV ×3 (06:31→22:12)
[2022-09-07 06:37] VITALS: BP 102/62; PULSE 77; RESP 18; TEMP 36.8; O2SAT 94
[2022-09-07 06:59] LABS: Abs Immature Grans 0.05 10^3/uL (0.0-0.06); Absolute Basophil Count 0.03 10^3/uL (0.0-0.2); Absolute Eosinophil Count 0.06 10^3/uL (0.0-0.7); Absolute Lymphocyte Count 1.03 10^3/uL (1.2-3.4); Absolute Monocyte Count 0.53 10^3/uL (0.1-0.8); Absolute Neutrophil Count 2.57 10^3/uL (1.2-6.7); Basophils % 0.7; Eosinophils % 1.4; HCT 23.3 % (36.0-46.0); HGB 7.7 g/dL (11.2-15.7); Immature Grans % 1.2; Lymphocytes % 24.1; MCH 37.2 pg (27.0-33.0); MCV 113 fL (80-95); MPV 10.3 fL (8.0-11.0); Monocytes % 12.4; Neutrophils % 60.2; RBC 2.07 10^6/uL (3.93-5.22); RDW 20.4 % (11.7-14.6); RDW-SD 84.8 fL; WBC 4.27 10^3/uL (4.4-10.8)
[2022-09-07 07:07] LABS: Anion Gap 6.6 mmol/L (3-11); BUN 26 mg/dL (7-18); CO2 24.4 mmol/L (21.0-32.0); CREATININE 1.2 mg/dL (0.55-1.02); Calcium 7.8 mg/dL (8.5-10.1); Chloride 105 mmol/L (98-107); Estimated GFR 53.13 (mL/min/1.73m2); Glucose 95 mg/dL (74-106); Magnesium 1.8 mg/dL (1.8-2.4); Potassium 4.1 mmol/L (3.5-5.1); Sodium 136 mmol/L (136-145)
[2022-09-07 07:41] LABS: Anisocytosis 2+; Diff Comment RBC Morph Reviewed; Macrocytosis 2+; Platelet Count 64 10^3/uL (130-400); Polychromasia Present
[2022-09-07] MEDS: Torsemide 20 MG TAB PO (09:10)
[2022-09-07] MEDS: Pantoprazole 20 MG TABCR PO (09:10)
[2022-09-07] MEDS: Spironolactone 50 MG TAB 100 MG PO (09:10)
[2022-09-07] MEDS: Magnesium Oxide 400 MG TAB 800 MG PO ×2 (09:11→22:12)
[2022-09-07] MEDS: Diclofenac 1% Gel 100 GM TUBE TP ×4 (09:11→22:11)
[2022-09-07] MEDS: Insulin Glargine 300 UNITS/3 ML PEN 40 UNITS SC ×2 (09:11→22:13)
[2022-09-07] MEDS: Insulin Aspart 300 UNITS/3 ML PEN SC ×5 (09:12→17:43)
--- NOTE | 2022-09-07 09:43 | PGE_ITS ---
Date of Service Date of service: 09/07/22 Time of Service: 09:44 Assessment and Plan Assessment and plan (1) Staphylococcus aureus bacteremia: Status: Acute Assessment and plan: Initial presentation on August 22 with sepsis secondary to left knee septic arthritis with positive blood cultures for MSSA. Multiple blood cultures were positive again from August 23 as well as a positive joint culture from August 24 and repeat blood cultures from August 25 August 27 August 29 and August 31, 2022. First complete set of negative cultures was from yesterday September 03, 2022. Based on this finding she should complete 6 weeks of targeted antibiotic therapy directed against MSSA 6 weeks would take her through October 15, 2022. She has been on oxacillin since August 27, 2022. Prior to that she was on cefepime and vancomycin since August 23, 2022. Given her history of cirrhosis secondary to Solorzano Ancef would be a better choice and oxacillin. She has now been on Ancef since 09/04. Case was discussed w/ I.D. at [facility] Dr. Jorge De Leon earlier in the week. Awaiting to receive approval for home infusion of Ancef. Patient is tearful and wants to go home. I told her that as soon as we can get home antibiotics set up she can be discharged home Professional time spent interviewing and examining patient, discussion of goals of care with hospital team (care management, nursing and consulting tez johnson) was 20 minutes. (2) Septic arthritis of knee, left: Status: Acute Assessment and plan: S/p washout 08/24/22. As above Continue working with PTReba Senior following. I will check with Dr. Soliz about removal of her sutures Qualifiers: Septic arthritis organism: staphylococcal Qualified Code(s): M00.062 - Staphylococcal arthritis, left knee (3) Anemia of chronic disease: Status: Acute Assessment and plan: H/H down to 7.6 > 7.4 > 7.7>7.4>7.4 >8.6>7.4>7.7 Some decrease in HGB likely d/t freq. phlebotomy particularly for blood cultures. Heme positive, on protonix s/p transfusion of 1 unit PRBC yesterday Folate replacement increased to 5 mg daily, recheck levels in one week along w/ metabolites (HC, MMA) (4) Hyperbilirubinemia: Status: Acute Assessment and plan: Her hyperbilirubinemia is secondary to her chronic liver disease from SOLORZANO. Repeat ultrasound shows cholelithiasis, minimal pericholecystic fluid, no common bile duct dilatation and a cirrhotic appearing liver with patent TIPS stent. No focal hepatic lesions. (5) Cirrhosis of liver: Status: Chronic Assessment and plan: As above. patient now on torsemide 20 mg daily along w/ incr. dose of spironolactone 100 mg daily and potassium supplement 20 meq daily (6) Hypocalcemia: Status: Acute Assessment and plan: Corrects to normal when low albumin taken into account. (7) DVT prophylaxis: Status: Acute Assessment and plan: SCDs (8) Discharge planning issues: Status: Acute Assessment and plan: Full code Continues to require hospitalization Patient is medically stable and does not require emergent transfer to tertiary care center. Both [facility] as well as [facility] are at capacity and are unable or unwilling to take her in transfer. This point now that her blood cultures are showing no growth I think the plan will be to set up home infusion of Ancef 2 g IV every 8 hours or continuous infusion pump of 6 g of Ancef every 24 hours for the next 6 weeks and arrange outpatient CHIARA. She can then follow-up with home physical therapy and Occupational Therapy and follow-up with Dr. Soliz as an outpatient. PICC line placed over the weekend Subjective Subjective Patient reports: no new complaints, feels better and pain is less; denies nausea or shortness of breath Interval history since last seen: Patient states that her leg/pedal edema have improved. Feet are not painful now to walk. Exam Narrative Exam Narrative: Personal pressures and overall reports. Circumstance. She is asking when she can go home she is inquiring as to when the home antibiotics will get approved. Lungs are clear to auscultation Heart is regular rate and rhythm with a systolic ejection murmur grade 2/6 Abdomen obese soft nontender nondistended normal bowel sounds Lower extremities 1+ pedal and pretibial edema Objective Last Vital Signs Temp 36.8 C 09/07/22 06:37 Pulse 77 09/07/22 06:37 Resp 18 09/07/22 06:37 BP 102/62 09/07/22 06:37 Pulse Ox 94 09/07/22 06:37 Laboratory Results - last 24 hr 09/06/22 09/06/22 09/07/22 08:05 12:25 06:30 WBC RBC Hgb Hct MCV MCH MCHC RDW Plt Count MPV Immature Gran % Neutrophils % Lymphocytes % Monocytes % Eosinophils % Basophils % Nucleated RBC % Absolute Neutrophils Absolute Lymphocytes Absolute Monocytes Absolute Eosinophils Absolute Basophils RBC Morphology Polychromasia Anisocytosis Macrocytosis Sodium 136 Potassium 4.1 D Chloride 105 Carbon Dioxide 24.4 Anion Gap 6.6 BUN 26 H Creatinine 1.2 H Est GFR (CKD-EPI 2020) 53.13 Glucose 95 Calcium 7.8 L Magnesium 1.8 Homocysteine Cancelled Patient ABO/Rh A Positive Antibody Screen NEGATIVE Crossmatch See Detail 09/07/22 06:30 WBC 4.27 L RBC 2.07 L Hgb 7.7 L Hct 23.3 L MCV 113 H MCH 37.2 H MCHC 33.0 RDW 20.4 H Plt Count 64 L MPV 10.3 Immature Gran % 1.2 Neutrophils % 60.2 Lymphocytes % 24.1 Monocytes % 12.4 Eosinophils % 1.4 Basophils % 0.7 Nucleated RBC % 0.0 Absolute Neutrophils 2.57 Absolute Lymphocytes 1.03 L Absolute Monocytes 0.53 Absolute Eosinophils 0.06 Absolute Basophils 0.03 RBC Morphology See Below Polychromasia Present Anisocytosis 2+ Macrocytosis 2+ Sodium Potassium Chloride Carbon Dioxide Anion Gap BUN Creatinine Est GFR (CKD-EPI 2020) Glucose Calcium Magnesium Homocysteine Patient ABO/Rh Antibody Screen Crossmatch Time Spent with Patient Time Spent with Patient: <25 minutes Time was spent: preparing to see the patient(eg.review tests), ordering medications,tests, procedures, referring, communicating with other health lawn care worker, indepentently interpreting results, counseling the patient and care coordination
--- NOTE | 2022-09-07 09:50 | CMPROGNOTE_ITS ---
Date of service: 09/07/22 Time of Service: 09:50 Care Management Progress Note Progress Note Text Progress Note Text: S/O: Janice was sitting in her chair, visiting with her DIL Ignacia Lainez when CM met with her. She is awake, pleasant and easy to engage in conversation. She is agreeable to be discharged home on a course of IV Ancef ($0 copay per Ignacia at [facility]) and New [facility] RN services. Ignacia agrees to help with home IV ABX, if needed. Dr. Diaz spoke with [facility] about the PICC line and the PICC line team is planning to be here this afternoon. ETA of delivery will be provided by [facility] after updated PICC info is received and approved, and a 1 day delay can be expected. Also, Janice is new to insulin and would benefit from diabetic education prior to discharge. CM left message for provider relations consultant. CM also notified Jaydon at [facility] of discharge needs. CM will continue to follow. A: 56 year old female admitted to [facility] on Hyperglycemia, ELVIA, Hyperkalcemia, sepsis from an infected knee P: Janice has S.aureus bacteremia and will need prolonged IV ABX therapy (6-8 weeks) possible. CM will?assist with the coordination of those services either through outpatient infusions, home infusions or swing bed. Janice's preference would be to do home infusions.?CM will support Janice and continue to assess for discharge planning needs.
[2022-09-07] MEDS: Potassium Chloride 20 MEQ TABCR PO (11:04)
[2022-09-07] MEDS: Folic Acid 1 MG TAB 5 MG PO (11:04)
--- NOTE | 2022-09-07 15:30 | DI.RAD_ITS ---
Exam(s) XR PORTABLE CHEST AP EXAM: XR PORTABLE CHEST AP CLINICAL HISTORY: for PICC line placement TECHNIQUE: 2D digital imaging was performed. COMPARISON: CR,XR XR PORTABLE CHEST AP POST LINE from 09/05/2022 FINDINGS: The PICC line has been pulled back. The tip now lies in the lower superior vena cava. There is no e vidence of pneumothorax. LUNGS: Clear. No pleural abnormality seen. HEART: Normal size. AORTA: Normal diameter. BONES: Unremarkable for age. Soft tissues: Tips visualized. IMPRESSION: Satisfactory placement PICC line. DATA REPOSITORY: RADIATION DOSE DELIVERED:
[2022-09-07 16:02] VITALS: BP 137/74; PULSE 77; RESP 17; TEMP 37.1; O2SAT 97
[2022-09-07 22:08] VITALS: BP 106/60; PULSE 81; RESP 17; TEMP 36.5; O2SAT 95
[2022-09-08] MEDS: Acetaminophen Solution 650 MG/20.3 ML CUP PO (00:38)
[2022-09-08 05:00] VITALS: BP 111/69; PULSE 75; RESP 20; TEMP 37.2; O2SAT 95
[2022-09-08] MEDS: Mylanta Suspension 30 ML CUP PO (05:12)
[2022-09-08] MEDS: traMADol 50 MG TAB 100 MG PO (05:12)
[2022-09-08] MEDS: Normal Saline Flush 10 ML SYR IVP ×3 (05:13→14:31)
[2022-09-08] MEDS: ceFAZolin 2 GM/50 ML BAG IV ×3 (05:14→22:44)
[2022-09-08 05:34] LABS: Abs Immature Grans 0.04 10^3/uL (0.0-0.06); Absolute Basophil Count 0.02 10^3/uL (0.0-0.2); Absolute Eosinophil Count 0.05 10^3/uL (0.0-0.7); Absolute Lymphocyte Count 1.26 10^3/uL (1.2-3.4); Absolute Neutrophil Count 2.45 10^3/uL (1.2-6.7); Basophils % 0.5; Eosinophils % 1.2; HCT 23.7 % (36.0-46.0); HGB 7.8 g/dL (11.2-15.7); Immature Grans % 0.9; Lymphocytes % 29.2; MCH 37.3 pg (27.0-33.0); MCHC 32.9 % (32.0-36.0); MCV 113 fL (80-95); MPV 10.3 fL (8.0-11.0); Monocytes % 11.6; Neutrophils % 56.6; RBC 2.09 10^6/uL (3.93-5.22); RDW 20.4 % (11.7-14.6); RDW-SD 84.4 fL; WBC 4.32 10^3/uL (4.4-10.8)
[2022-09-08 05:44] LABS: BUN 33 mg/dL (7-18); CREATININE 1.2 mg/dL (0.55-1.02); Calcium 7.9 mg/dL (8.5-10.1); Chloride 102 mmol/L (98-107); Estimated GFR 53.13 (mL/min/1.73m2); Glucose 123 mg/dL (74-106); Magnesium 1.4 mg/dL (1.8-2.4); Potassium 3.7 mmol/L (3.5-5.1); Sodium 132 mmol/L (136-145)
[2022-09-08] MEDS: Prochlorperazine 10 MG/2 ML VIAL 5 MG IVP (05:59)
[2022-09-08 06:08] LABS: Platelet Count 62 10^3/uL (130-400)
[2022-09-08 06:09] LABS: Anisocytosis 2+; Diff Comment Diff Reviewed; Macrocytosis 1+
[2022-09-08 07:31] VITALS: BP 112/67; PULSE 81; RESP 17; TEMP 36.5; O2SAT 92
[2022-09-08] MEDS: Folic Acid 1 MG TAB 5 MG PO (08:57)
[2022-09-08] MEDS: Magnesium Chloride 64 MG TABCR 128 MG PO ×2 (08:57→22:42)
[2022-09-08] MEDS: Spironolactone 50 MG TAB 100 MG PO (08:57)
[2022-09-08] MEDS: Potassium Chloride 20 MEQ TABCR PO (08:57)
--- NOTE | 2022-09-08 08:57 | PDOC.CMPRO ---
Date of service: 09/08/22 Time of Service: 08:57 Care Management Progress Note Progress Note Text Progress Note Text: S/O: Janice was sitting up in bed when CM met with her. CM confirmed that the plan is for Janice to discharge home tomorrow around 1 pm. Her antibiotic will be delivered by [facility] this evening at 7pm. Janice confirmed that her [id number] will be there to receive the delivery. [facility] is scheduled to arrive tomorrow in time to administer the 2pm dose of Ceftriaxone At that time they will begin teaching Janice and her family how to perform the antibiotic infusions. Janice shared that she is looking forward to being home and that she feels well supported by friends and family. A: 56 year old female admitted to [facility] on Hyperglycemia, ELVIA, Hyperkalcemia, sepsis from an infected knee P: Janice has S.aureus bacteremia and will need prolonged IV ABX therapy (6 weeks). CM ?assisted with the coordination of those services through [facility] outpatient infusion company and [facility].?CM will continue to support Janice and to assess for discharge planning needs.
[2022-09-08] MEDS: Pantoprazole 20 MG TABCR PO (08:58)
[2022-09-08] MEDS: Torsemide 20 MG TAB PO (08:58)
[2022-09-08] MEDS: Normal Saline 500 ML 100 ML IV (08:59)
[2022-09-08] MEDS: Insulin Glargine 300 UNITS/3 ML PEN 40 UNITS SC ×2 (09:00→22:46)
[2022-09-08] MEDS: MAGNESIUM SULFATE 4 GM/100 ML BAG IVPB (09:00)
[2022-09-08] MEDS: Insulin Aspart 300 UNITS/3 ML PEN SC ×5 (09:01→18:03)
[2022-09-08 11:03] VITALS: BP 96/60; PULSE 60; RESP 16; TEMP 36.2; O2SAT 94
[2022-09-08] MEDS: Potassium Chloride Liquid 20 MEQ PKT PO (12:02)
[2022-09-08 14:16] LABS: Homocysteine 13.3 umol/L (5.0-13.9)
[2022-09-08 15:14] VITALS: BP 100/64; PULSE 69; RESP 16; TEMP 35.9; O2SAT 95
[2022-09-08] MEDS: Diclofenac 1% Gel 100 GM TUBE TP ×2 (15:28→22:44)
--- NOTE | 2022-09-08 16:31 | W.PM.PROGNOT ---
Date of Service Date of service: 09/08/22 Time of Service: 16:31 Assessment and Plan Assessment and plan (1) Staphylococcus aureus bacteremia: Status: Acute Assessment and plan: In setting of septic L knee, s/p irrigation and washout. Continue cefazolin through 10/15/22 (6 weeks from 09/03). Blood cultures positive on 08/23, 08/25, 08/27, 08/29, 08/31. Blood cultures from 09/03: NGTD. LUE PICC placed on 09/05. Anticipate discharge home on home health antibiotics tomorrow. (2) Septic arthritis of knee, left: Status: Acute Assessment and plan: S/p washout 08/24/22. Sutures removed today. Continue PT. Qualifiers: Septic arthritis organism: staphylococcal Qualified Code(s): M00.062 - Staphylococcal arthritis, left knee (3) Anemia of chronic disease: Status: Acute Assessment and plan: Hgb 7.8 today, stable. Heme +. S/p transfusion of 1 unit pRBCs on 09/06/22. Folate deficient - this is being repleted. I do think that our blood daily blood draws are contributing to the anemia. Continue PPI. Would limit outpatient blood draws to once weekly. (4) Hyperbilirubinemia: Status: Acute Assessment and plan: Due to cirrhosis/DAMON. US RUQ did not identify any acute pathology. Follow up as outpatient. (5) Cirrhosis of liver: Status: Chronic Assessment and plan: As above. Continue torsemide 20 mg daily, spironolactone 100 mg daily. (6) Hypocalcemia: Status: Acute Assessment and plan: Corrects to normal when low albumin taken into account. (7) Hypomagnesemia: Status: Acute Assessment and plan: The patient has a hard time tolerate magnesium oxide formulation. I have changed her to magnesium chloride and repleted today's magnesium of 1.4 IV. Will need to be followed up as outpatient. (8) DVT prophylaxis: Status: Acute Assessment and plan: SCDs (9) Discharge planning issues: Status: Acute Assessment and plan: Full code Anticipate discharge home tomorrow with home health abx, nursing, PT. Will need outpatient CHIARA. Subjective Subjective Interval history since last seen: Ms Rivers states that tramadol made her feel very out of it this morning and that the magnesium pill made her very nauseated last night. She felt cotton-mouthed this morning, like she might be getting dehydrated, and the water didn't taste good, she stated. But this resolved on its own. She is feeling back to normal now. Denies dizziness, CP, SOB, n/v. Is planned for discharge home tomorrow. Is inquiring about bubble packs on discharge. Her pharmacy is [facility] in [place]. Exam Narrative Exam Narrative: General: Pleasant middle-aged female who appears to be at her baseline mental status, A&Ox3, NAD HEENT: EOMI, MMM Heart: RRR, I do not appreciate the murmur today Lungs: CTAB anteriorly Abdomen: soft, nontender, nondistended Extremities: no edema BLEs; stitches from L knee were taken out in front of me by Dr Soliz - incision sites look well healed, dry, intact Objective Last Vital Signs Temp 35.9 C L 09/08/22 15:14 Pulse 69 09/08/22 15:14 Resp 16 09/08/22 15:14 BP 100/64 09/08/22 15:14 Pulse Ox 95 09/08/22 15:14 Laboratory Results - last 24 hr 09/08/22 09/08/22 05:00 05:00 WBC 4.32 L RBC 2.09 L Hgb 7.8 L Hct 23.7 L MCV 113 H MCH 37.3 H MCHC 32.9 RDW 20.4 H Plt Count 62 L MPV 10.3 Immature Gran % 0.9 Neutrophils % 56.6 Lymphocytes % 29.2 Monocytes % 11.6 Eosinophils % 1.2 Basophils % 0.5 Nucleated RBC % 0.0 Absolute Neutrophils 2.45 Absolute Lymphocytes 1.26 Absolute Monocytes 0.50 Absolute Eosinophils 0.05 Absolute Basophils 0.02 RBC Morphology See Below Anisocytosis 2+ Macrocytosis 1+ Sodium 132 L Potassium 3.7 Chloride 102 Carbon Dioxide 29.0 Anion Gap 1.0 L BUN 33 H Creatinine 1.2 H Est GFR (CKD-EPI 2020) 53.13 Glucose 123 H Calcium 7.9 L Magnesium 1.4 L Time Spent with Patient Time Spent with Patient: 25-34 minutes Time was spent: preparing to see the patient(eg.review tests), obtaining and/or reviewing separately otained hiistory, ordering medications,tests, procedures, referring, communicating with other health child care education coordinator, indepentently interpreting results, counseling the patient and care coordination
[2022-09-08 22:37] VITALS: BP 111/61; PULSE 75; RESP 18; TEMP 36.3; O2SAT 95
[2022-09-09] MEDS: ceFAZolin 2 GM/50 ML BAG IV (06:21)
[2022-09-09 07:36] VITALS: BP 105/63; PULSE 69; RESP 18; TEMP 36.4; O2SAT 93
[2022-09-09 08:14] LABS: AST 43 U/L (15-37); Albumin 1.5 g/dL (3.4-5.0); Alkaline Phosphatase 94 U/L (46-116); Anion Gap 7.1 mmol/L (3-11); BUN 35 mg/dL (7-18); Bilirubin, Direct 3.2 mg/dL (0.0-0.2); Bilirubin, Total 5.7 mg/dL (0.2-1.0); CO2 26.9 mmol/L (21.0-32.0); CREATININE 1.2 mg/dL (0.55-1.02); Calcium 7.8 mg/dL (8.5-10.1); Chloride 104 mmol/L (98-107); Estimated GFR 53.13 (mL/min/1.73m2); Glucose 111 mg/dL (74-106); Magnesium 1.9 mg/dL (1.8-2.4); Potassium 4.1 mmol/L (3.5-5.1); Sodium 138 mmol/L (136-145); Total Protein 5.7 g/dL (6.4-8.2)
[2022-09-09 08:23] LABS: ALT < 6 U/L (14-59)
[2022-09-09] MEDS: Insulin Glargine 300 UNITS/3 ML PEN 40 UNITS SC (08:26)
[2022-09-09] MEDS: Diclofenac 1% Gel 100 GM TUBE TP (08:26)
[2022-09-09] MEDS: Insulin Aspart 300 UNITS/3 ML PEN SC ×3 (08:27→13:12)
[2022-09-09] MEDS: Magnesium Chloride 64 MG TABCR 128 MG PO (08:28)
[2022-09-09] MEDS: Spironolactone 50 MG TAB 100 MG PO (08:28)
[2022-09-09] MEDS: Torsemide 20 MG TAB PO (08:28)
[2022-09-09] MEDS: Pantoprazole 20 MG TABCR PO (08:29)
[2022-09-09] MEDS: Folic Acid 1 MG TAB 5 MG PO (08:29)
[2022-09-09] MEDS: Potassium Chloride Liquid 20 MEQ PKT PO (08:29)
--- NOTE | 2022-09-09 09:31 | PDOC.CMDIS ---
Date of service: 09/09/22 Time of Service: 09:31 LACE Index Scoring Tool Questions: Length of Stay (in days): 14 or more Was the patient admitted via the E.D.?: Yes Comorbidities: Diabetes w/o Complication, Any Tumor and Liver or Renal Disease E.D. Visits: 2 Answers: Total Score: 17 Risk of Readmission: High Risk Care Management Discharge Plan Reason for Hospitalization: knee effusion and ELVIA Discharge Plan: Janice will be discharged home with new home health services for nursing. She will have 6 weeks of IV antibiotics provided by [facility] and coordinated with [facility]. Janice will follow up with her plan of care as prescribed and transport with family. Patient/Family Education Needs: Review of discharge instructions, activity, limitations, follow up plan, discuss Ask Me Three
--- NOTE | 2022-09-09 09:40 | DM INPTCON_ITS ---
Date of service: 09/09/22 Time of Service: 09:41 Diabetes Inpatient Consult Reason for Visit: Diabetes consult - routine, ELVIA DESCRIPTION/ASSESSMENT: 56yo female with Hx of DM II without complication. Weight has Trended up from admission (81.6kg 08/22 - to 91.3kg today) with 9.7kg wt gain. Taking 75-100% of meals ordered. Current BMI of 34.5 is consistent with stage II obesity. Most recent Hgb A1c at 5.6 11/27/21. Taking calcium/vit D at home as well as 1gm m etformin BID. Estimated nutrition needs are 1784kcals (MSJx1.2), 73g protein (.8g/kg) and ~1800mL fluid (1ml/kcal).Repletion of Folate and magnesium noted. Pt anticipated to discharge home tomorrow on home health and hospice per provider update today. INTERVENTION: No aggressive intervention needed at this time. PLAN: Will monitor for changes in nutrition status to discharge and remain available for any outpatient referrals for any education needs for nutrition and diabetes. Time Spent in Nutritional Counseling and Treatment: 0
[2022-09-09 10:59] LABS: Abs Immature Grans 0.03 10^3/uL (0.0-0.06); Absolute Basophil Count 0.02 10^3/uL (0.0-0.2); Absolute Eosinophil Count 0.02 10^3/uL (0.0-0.7); Absolute Lymphocyte Count 0.91 10^3/uL (1.2-3.4); Absolute Monocyte Count 0.44 10^3/uL (0.1-0.8); Absolute Neutrophil Count 1.85 10^3/uL (1.2-6.7); Basophils % 0.6; Eosinophils % 0.6; HCT 24.8 % (36.0-46.0); HGB 8.1 g/dL (11.2-15.7); Immature Grans % 0.9; Lymphocytes % 27.8; MCH 37.3 pg (27.0-33.0); MCHC 32.7 % (32.0-36.0); MCV 114 fL (80-95); MPV 10.1 fL (8.0-11.0); Monocytes % 13.5; Neutrophils % 56.6; RBC 2.17 10^6/uL (3.93-5.22); RDW 19.3 % (11.7-14.6); RDW-SD 81.3 fL; WBC 3.27 10^3/uL (4.4-10.8)
--- NOTE | 2022-09-09 11:27 | DSE_ITS ---
Date of service: 09/09/22 Time of Service: 11:27 DS: Diagnosis Discharge Diagnosis (1) Sepsis: Status: Acute (2) Staphylococcus aureus bacteremia: Status: Acute (3) Septic arthritis of knee, left: Status: Acute (4) Hyperglycemia: Status: Resolved (5) ELVIA (acute kidney injury): Status: Resolved (6) Thrombosis of right cephalic vein: Status: Acute Asessment and Plan: septic thrombosis (7) IDDM (insulin dependent diabetes mellitus): Status: Chronic (8) Anemia of chronic disease: Status: Acute (9) Hyperbilirubinemia: Status: Acute (10) Cirrhosis of liver: Status: Chronic (11) Hypocalcemia: Status: Acute (12) Hypomagnesemia: Status: Acute (13) Hypokalemia: Status: Acute (14) Hypoglycemia: Status: Acute (15) Pleuritic chest pain: Status: Acute (16) Thrombocytopenia: Status: Chronic (17) Coagulopathy: Status: Acute (18) Heme + stool: Status: Acute (19) Lactic acidosis: Status: Resolved (20) Hyponatremia: Status: Resolved (21) Hypoproteinemia: Status: Acute (22) Crohn's disease in remission: Status: Acute (23) Obesity (BMI 30.0-34.9): Status: Chronic (24) Folate deficiency: Status: Acute Discharge Plan Disposition Patient Disposition: Home W/Home Health Services Condition: Improving Discharge Details Reason For Visit: Hyperglycemia, ELVIA, Hyperkalemia Admit Date/Time: 08/23/22 04:18 Admit Provider: Denys Ortiz Attending Provider: Denys Ortiz Primary Care Provider: Deandra Hutchins [facility] Course Hospital Course: Ms Briones is a 56 year old female with h/o previously noninsulin dependent diabetes mellitus, cirrhosis of the liver due to DAMON s/p TIPS, H/o colon ca s/p ostomy in 1999, HADLEY, who was admitted to [facility] ICU on 08/23/22 after presenting with sepsis due to septic arthritis of L knee, having failed outpatient therapy with bactrim. She had presented with evidence of ELVIA, worsening liver function tests, coagulopathy, thrombocytopenia, lactic acidosis, leucocytosis, hyperkalemia, hyperglycemia without evidence of DKA, and hyponatremia. She was not in shock. She was treated with IVF and insulin drip, initially, and as it became clear that the etiology of her presentation was infectious, with intravenous antibiotics. While initially hepatorenal syndrome was considered, we feel her ELVIA was prerenal due to dehydration and responded to IVF and antibiotic therapy/treatment of sepsis. The patient had arthrocenthesis done by Dr Soliz on 08/23/22, c/w septic arthritis. The patient was started on vancomycin/cefepime. She went for a left knee arthroscopic debridement and synovectomy of the left knee on 08/24/22, during which pus was evacuated. Blood cultures on admission, as well as arthrocenthesis cultures and the cultures from the washout procedure all grew MSSA. Antibiotics were narrowed to cefazolin, initially, but then changed to oxacillin on 08/27/22 due to persistently positive blood cultures. Repeat blood cultures done on 08/25/22, 08/27/22, 08/29/22, 08/31/22 were still positive. Blood cultures on 09/03/22 finally were negative. A LUE PICC line was placed on 09/05/22. A transthoracic echocardiogram done on 08/24/22 showed no evidence of valvular disease. After going on and off insulin drip several times, she was transitioned to basal bolus insulin and was transferred out of the ICU on 08/25/22. Because there was a difficulty getting the patient to a tertiary care facility on inpatient basis, an outpatient CHIARA is being pursued. The patient has been noted to have an intermittent murmur on this admission, likely related to her volume status, but we cannot rule out endocarditis, and she does have a TIPS shunt. She did have a transthoracic echo done again on 09/04/22 to ensure there were no obvious valvular lesions now, and there were none. US abdomen done on 08/26/22 showed a patent TIPS, cirrhotic liver, contracted gallbladder. There was no evidence of intrahepatic abscess. CT abdomen/pelvis on 09/01/22 showed no evidence of intraabdominal abscess. She does have esophageal varices and cholelithiasis. There was evidence of ascites and some amount of pericholecystic fluid which was c/w ascites. There was no clinical evidence of cholecystitis. US abdomen done on 09/04/22 again showed no focal intrahepatic lesions. TIPS appeared stable. I spoke with [facility] who stated that TIPS shunts are not mechanically retrievable/exchangeable and that yes, there is a possibility of seeding, necessitating consideration of long- standing antibiotics. The case was discussed with ID, who recommended switching antibiotics back to cefazolin due to the patient's h/o liver disease, which was done on 09/04/22. The patient is being referred for outpatient ID follow up. Additionally, on this admission, CT chest was done on 08/28/22 due to the patient's report of chest pain on inspiration and was negative for a PE or any evidence of septic emboli. The pain was likely musculoskeletal. The patient required a transfusion of 1 unit of pRBCs for her anemia. She did not have hemodynamically significant bleeding but was heme positive. She was started on a PPI. She is also folate deficient and was started on folate replacement. She does have evidence of a RUE thrombosis in her cephalic vein. She cannot be safely anticoagulated due to her varices and thrombocytopenia. It is likely that this thrombosis is septic. Her diuretics were held due to lower than her baseline BPs on initial admission with evidence of prerenal ELVIA. Diuresis was restarted and intensified by the time of her discharge. She is now on aldactone and torsemide. Diuretics are being used to treat her ascites and edema related to her cirrhosis. Of note, the patient was no longer taking methylphenydate at home and it was not continued on discharge. Her insulin regimen on discharge is lantus 38 units BID, aspart 2 units: 10 grams of carbs consumed, 2 units for every 50 points that her blood sugar is over 150. She met with diabetes education and is being discharged home with a DEXCOM CGM. She is being discharged home with 6 weeks of IV cefazolin starting from her 1st negative blood culture. Her last day of antibiotics is expected to be on 10/15/22. She should have weekly bloodwork to include CBC w/ diff, BMP, magnesium, CRP. Both potassium and magnesium did have to be repleted on this admission. She should follow up with Dr Soliz, who removed her stitches on 09/08/22. She should follow up with her PCP in 1-2 weeks. A referral for CHIARA is being sent on discharge. Care for patient in addition to completion of her discharge paperwork and referrals took 80 minutes on the day of discharge. Home Meds and New Rx's Prescriptions: New diclofenac sodium 1 % Gel 2 g topical QID PRN PRNQty: 100 0RF Rx Instructions: apply to Left knee cefazolin in dextrose (iso-os) 2 gram/50 mL Piggyback 2 g IV Q8H Qty: 0 0RF folic acid 1 mg Tablet 1 mg PO DAILY Qty: 30 0RF insulin glargine [Lantus Solostar U-100 Insulin] 100 unit/mL (3 mL) Insulin Pen 38 unit subcut BID Qty: 15 0RF pantoprazole 20 mg Tablet,Delayed Release (Dr/Ec) 20 mg PO DAILY@0730 Qty: 30 0RF Mag 64 64 mg Tablet,Delayed Release (Dr/Ec) 128 mg PO BID Qty: 120 0RF torsemide 20 mg Tablet 20 mg PO DAILY Qty: 30 0RF spironolactone 100 mg tablet 100 mg PO DAILY Qty: 30 0RF insulin aspart U-100 100 unit/mL (3 mL) insulin pen 1 sliding scale dose subcut USEASDIRECTD Qty: 15 0RF Rx Instructions: Use with meals and at bedtime. With meals: use 2 units SC for every 10 grams of carbohydrates consumed. In addition, use 2 units for every 50 points that your blood sugar is over 150 with meals and at bedtime. (DME) Dexcom G7 Sensor Device See Rx Instructions .Route Qty: 3 0RF Rx Instructions: For blood sugar monitoring in am, before meals, and at bedtime (DME) pen needle, diabetic [Sure-Fine Pen [place]] 31 gauge x 5/16 needle See Rx Instructions .Route Qty: 200 1RF Rx Instructions: For lantus injections BID and aspart AC/HS (DME) Dexcom G7 High Raw Sugar Boiler Misc See Rx Instructions .Route Qty: 1 0RF Rx Instructions: For blood sugar monitoring AC/HS (DME) lancets 30 gauge misc See Rx Instructions .Route Qty: 200 0RF Rx Instructions: As directed ([facility]) 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 meter Kit See Rx Instructions .Route Qty: 1 0RF Rx Instructions: glucometer for blood sugar checks AC/HS (DME) Blood Glucose Test Strip See Rx Instructions .Route Qty: 200 0RF Rx Instructions: For blood sugar checks AC&HS Continued calcium carbonate-vitamin D3 1,000 mg(2,500 mg)-800 unit tablet 1 tab PO BID levalbuterol tartrate [Xopenex HFA] 45 mcg/actuation HFA aerosol inhaler 2 inh inhalation .Q4-6HR metformin 500 mg tablet 1,000 mg PO BID acetaminophen [Mapap Extra Strength] 500 MG tablet 1 - 2 tab PO PRN PRN ondansetron 4 mg tablet,disintegrating 4 mg PO Q8H PRN (Reason: nausea and vomiting) Qty: 30 0RF Discontinued magnesium chloride 64 mg Tablet Extended Release 113 mg PO DAILY ferrous gluconate 256 mg (28 mg iron) tablet 256 mg PO BID albuterol sulfate [ProAir HFA] 90 mcg/actuation HFA aerosol inhaler 2 puff inhalation .Q4-6HR PRN furosemide 20 mg Tablet 20 mg PO DAILY spironolactone 50 mg Tablet 50 mg PO DAILY methylphenidate HCl [Ritalin] 20 MG tablet 20 mg PO TID sulfamethoxazole-trimethoprim [Bactrim DS] 800-160 mg tablet 1 tab PO BID Qty: 14 0RF Discharge Instructions Instructions: Cefazolin (By injection), Insulin Aspart, Recombinant (By injection), Insulin Glargine (By injection), Hypoglycemia in a Person with Diabetes (DC), Sepsis (DC), Septic Arthritis (DC), Bacteremia (DC), PICC (Peripherally Inserted Central Catheter) (DC) Additional Instructions: Finish your antibiotics as prescribed. Your last day of antibiotics is 10/15/22. Routine PICC line care. Return to the hospital with any fevers, bleeding, chest pain, shortness of breath, or if you feel worse. Follow up with your PCP in 1-2 weeks. Follow up with orthopedics with Dr Soliz and with Infectious Diseases and for your CH[facility]ARA (transesophageal echocardiogram) at [facility]. Follow up with Diabetes education. Home health: routine PICC line care. Weekly labs: CBC w/diff, BMP, magnesium, CRP. Results to Dr Hutchins. Care Plan Goals: Home with new home health nursing and PT. Stand Alone Forms: Nursing Discharge Form Referrals: C[facility]OLOG[facility] [OTHER] - (A nurse from Cardiology will call you when they go over your paperwork for CHIARA (MSSA sepsis, question of endocarditis). [employer] is working on your referral) INFECTIOUS,[facility] [OTHER] - 10/19/22 11:30 am (MSSA bacteremia, septic arthritis L knee, ?endocarditis ) Angelito Galloway RDN [CUSTOMS ENTRY WRITER] - (Angelito the life skills educator will call you to set up an appointment) Deandra Hutchins MD [Primary Care Provider] - 09/18/22 1:20 pm Justin Soliz MD [ [facility] STAFF PHYSICIAN] - (A nurse from Dr Patino office will call you with an appointment in the next 2 days ) Activity:: Activity as Tolerated Equipment/Supplies:: No Equipment Needed Diet:: consistent carb low sodium Discharge Orders Discharge Orders: Discharge Order (Routine); Ordered 09/09/22 Ordered By: Parris Ulloa DS: Summary Time Spent with Patient providing and/or coordinating discharge services: Greater than 30 minutes Status at Discharge Functional status at discharge: uses cane/walker Overall status at discharge: patient is progressing back to baseline Mental Status: mental status grossly normal Speech and Movement: speech and movement normal Mood: congruent mood Affect: normal affect Exam Narrative Exam Narrative: General: Pleasant middle-aged female who appears to be at her baseline mental status, A&Ox3, NAD HEENT: EOMI, MMM Heart: RRR, I do not appreciate the murmur today Lungs: CTAB anteriorly Abdomen: soft, nontender, nondistended Extremities: no edema BLEs, incision sites L knee look well healed, dry, intact Psych Mental Status: mental status grossly normal Speech and Movement: speech and movement normal Mood: congruent mood Affect: normal affect DS: Data Vitals/I&O Vitals and I&O: Vital Signs Temperature 36.4 C L 09/09/22 07:36 Temperature Source Tympanic 09/09/22 07:36 Pulse 69 09/09/22 07:36 Pulse Rhythm Regular 09/09/22 07:00 Pulse 78 08/25/22 20:35 Respiratory Rate 18 09/09/22 07:36 Respiratory Effort Normal, Non-Labored 09/09/22 07:00 Respiratory Depth Normal 09/09/22 07:00 Respiratory Pattern Normal 09/09/22 07:00 Blood Pressure 105/63 09/09/22 07:36 Blood Pressure Mean 56 08/25/22 20:35 Blood Pressure Position Supine 08/25/22 07:48 Pulse Oximetry 93 09/09/22 07:36 Oxygen Delivery Method Room Air 09/09/22 07:36 Oxygen Flow Rate 0 07/19/23 07:36 Pain Level 0 09/08/22 22:37 Comment Pt. denies pain at this time. Pt. states that she ...feels a little better than this morning. Pt. is asymptomatic with the decreased blood pressure. Charge nurse notified. 09/08/22 11:03 Intake & Output 09/08/22 09/08/22 09/09/22 11:59 23:59 11:59 Intake Total 311.667 / 851.667 510 / 851.667 210 / 210 Output Total 1950 / 4925 2975 / 4925 1850 / 1850 Balance -1638.333 / -4073.333 -2465 / -4073.333 -1640 / -1640 Weight 93.1 kg 91.3 kg Intake: IV 71.667 / 371.667 270 / 371.667 30 / 30 Oral 240 / 480 240 / 480 180 / 180 Output: Urine 1300 / 3800 2500 / 3800 1300 / 1300 Stool 650 / 1125 475 / 1125 550 / 550 Other: Urine Color Straw Dark Rere Yellow [place] Urine Appearance Clear Clear Clear Urine Odor Normal None None Comment Void x1 in the toilet. Void x1 in the bedside commode. pT voids independently in room. no hat in toilet. Stool Occult Blood Positive Positive Positive Stool Characteristics Soft Soft Liquid Brown Voiding Methods Toilet Toilet Toilet Bedside Commode Data Completed and Pending Completed studies during hospitalization [Text1]: XR L knee 08/23/22: Small joint effusion.? If there is continued clinical concern for septic arthritis, MRI or aspiration is recommended.? Echo 08/24/22: Normal left ventricular wall thickness and chamber size.? Ejection fraction is 60 to 65%.? Wall motion is normal Normal right ventricular size and systolic function Both atria are normal in size There is no structural or hemodynamically significant valvular disease No valvular vegetations were identified US abdomen 08/26/22: Cirrhotic appearing liver.? Patent TIPS shunt. Gallbladder not well evaluated due to contracted state. CTA chest 08/28/22; No evidence of pulmonary embolism. No acute abnormality in the chest. US RUE 08/31/22: 1.? Positive study for intraluminal thrombus within the right cephalic vein.? This is above the elbow level.? The length of the clot is approximately 12 cm. 2.? There is no extension into the axillary vein at this time. CT abdomen/pelvis 09/01/22: 1. TIPS, cirrhotic liver, splenomegaly, and collateralization, including esophageal varices.? Mild ascites evident in the abdomen pelvis. 2. There is cholelithiasis and there is significant amount of Sammie cholecystic fluid, more so than can be accounted for by the amount of ascites.? Suspect cholecystitis.? CBD is not dilated.? There is no obvious radiopaque calculus in the lower CBD. 3. Pancreas appears somewhat atrophic. 4. Visualized lung bases are clear. Echo 09/04/22: Normal left ventricular wall thickness and chamber size.? Ejection fraction is 65%.? Wall motion is normal Normal right ventricular size and systolic function Both atria are normal in size No structural or hemodynamically significant valvular disease is identified No valvular vegetations are noted US venous 09/04/22: 1.? No ultrasound evidence of DVT in either lower extremity. CXR 09/05/22: Increased markings both lung sams are probably exaggerated by the portable supine technique.? No confluent infiltrates.? No obvious pleural effusions.? Recommend nonportable PA and lateral views when clinically possible.Distal tip of the PICC line is in the upper right atrium. Hepatic TIPS shunt stent noted. CXR 09/07/22: Satisfactory placement PICC line. Labs on day of discharge: Labs from last 24 hours 09/09/22 09/09/22 09/09/22 10:25 06:15 06:15 WBC Pending Cancelled RBC Pending Cancelled Hgb Pending Cancelled Hct Pending Cancelled MCV Pending Cancelled MCH Pending Cancelled MCHC Pending Cancelled RDW Pending Cancelled Plt Count Pending Cancelled MPV Pending Cancelled Immature Gran % Pending Cancelled Neutrophils % Pending Cancelled Band Neutrophils % Cancelled Lymphocytes % Pending Cancelled Atypical Lymphs % Cancelled Monocytes % Pending Cancelled Eosinophils % Pending Cancelled Basophils % Pending Cancelled Metamyelocytes % Cancelled Myelocytes % Cancelled Promyelocytes % Cancelled Other Cells % Cancelled Nucleated RBC % Cancelled Absolute Neutrophils Pending Cancelled Absolute Lymphocytes Pending Cancelled Absolute Monocytes Pending Cancelled Absolute Eosinophils Pending Cancelled Absolute Basophils Pending Cancelled RBC Morphology Cancelled Polychromasia Cancelled Hypochromasia Cancelled Poikilocytosis Cancelled Basophilic Stippling Cancelled Anisocytosis Cancelled Microcytosis Cancelled Macrocytosis Cancelled Spherocytes Cancelled Tear Drop Cells Cancelled Ovalocytes Cancelled Stomatocytes Cancelled [place] Bodies Cancelled [place] Cells/Echinocytes Cancelled Acanthocytes (Spur) Cancelled Schistocytes Cancelled Sodium 138 Potassium 4.1 Chloride 104 Carbon Dioxide 26.9 Anion Gap 7.1 BUN 35 H Creatinine 1.2 H Est GFR (CKD-EPI 2020) 53.13 Glucose 111 H Calcium 7.8 L Magnesium 1.9 Total Bilirubin 5.7 H Conjugated Bilirubin 3.2 H AST 43 H ALT < 6 L Alkaline Phosphatase 94 C-Reactive Protein 2.00 H Total Protein 5.7 L Albumin 1.5 L Homocysteine 09/07/22 06:30 WBC RBC Hgb Hct MCV MCH MCHC RDW Plt Count MPV Immature Gran % Neutrophils % Band Neutrophils % Lymphocytes % Atypical Lymphs % Monocytes % Eosinophils % Basophils % Metamyelocytes % Myelocytes % Promyelocytes % Other Cells % Nucleated RBC % Absolute Neutrophils Absolute Lymphocytes Absolute Monocytes Absolute Eosinophils Absolute Basophils RBC Morphology Polychromasia Hypochromasia Poikilocytosis Basophilic Stippling Anisocytosis Microcytosis Macrocytosis Spherocytes Tear Drop Cells Ovalocytes Stomatocytes [place] Bodies [place] Cells/Echinocytes Acanthocytes (Spur) Schistocytes Sodium Potassium Chloride Carbon Dioxide Anion Gap BUN Creatinine Est GFR (CKD-EPI 2020) Glucose Calcium Magnesium Total Bilirubin Conjugated Bilirubin AST ALT Alkaline Phosphatase C-Reactive Protein Total Protein Albumin Homocysteine 13.3 PFSH All Active Problems (Updated 09/09/22 @ 13:43 by Parris Ulloa MD) Thrombosis of right cephalic vein (Acute) Folate deficiency (Acute) Sepsis (Acute) IDDM (insulin dependent diabetes mellitus) (Chronic) Obesity (BMI 30.0-34.9) (Chronic) Heme + stool (Acute) Hypoglycemia (Acute) Hypokalemia (Acute) Hypomagnesemia (Acute) Pleuritic chest pain (Acute) Staphylococcus aureus bacteremia (Acute) Hypotension (Acute) Thrombocytopenia (Chronic) Leukocytosis (Acute) Coagulopathy (Acute) Hypoproteinemia (Acute) Hypocalcemia (Acute) Gram-positive cocci bacteremia (Acute 08/23/22) Septic arthritis of knee, left (Acute ~08/09/22) S/P washout/debridement: 08/24/2022 Cirrhosis of liver (Chronic) Hyperbilirubinemia (Acute) Hepatorenal syndrome (Acute) Acute dehydration (Acute) ADHD (Acute) Crohn's disease in remission (Acute) Anemia of chronic disease (Acute) Acute exacerbation of chronic low back pain (Acute) Back pain (Acute) Stoma bleed (Acute) Chest pain (Acute) H/O malignant neoplasm of colon (Acute) DVT prophylaxis (Acute) Discharge planning issues (Acute) Anemia, blood loss (Acute) GI bleed (Chronic) Medical History Adjustment disorder Chronic low back pain Colon cancer Depression with anxiety Diabetes mellitus type 2 in obese GERD (gastroesophageal reflux disease) Hyposmia HADLEY (obstructive sleep apnea) PTSD (post-traumatic stress disorder) Vitamin B12 deficiency Vitamin D deficiency Surgical History H/O ileostomy History of endometrial ablation S/P colectomy S/P D&C (status post dilation and curettage) S/P LEEP Family History Mother , age 49 due to heart disease Diabetes Heart disease Hypertension Father Heart disease Social History Smoking/Tobacco Use Status: Never Smoking risk assessment performed?: Yes Alcohol Intake: never Drug use: Never Substance use type: does not use Household members: family Housing: house Number of Children: 5 number of grandchildren: 15 Pets and animals: Yes Pets and animals: dog(s) What type of physical activity do you participate in: none Seatbelt use: always Do you feel safe at home: Yes Do you feel safe in your relationship?: Yes Time Spent with Patient Time Spent with Patient: 70-84 minutes4 Time was spent: preparing to see the patient(eg.review tests), obtaining and/or reviewing separately otained hiistory, ordering medications,tests, procedures, referring, communicating with other health nanny caregiver, indepentently interpreting results, counseling the patient and care coordination
[2022-09-09 12:05] LABS: Anisocytosis 2+; Diff Comment RBC Morph Reviewed; Macrocytosis 2+; Platelet Count 57 10^3/uL (130-400)
--- NOTE | 2022-09-09 13:48 | PDOC.HHF2F ---
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 She had presented with evidence of ELVIA, worsening liver function tests, coagulopathy, thrombocytopenia, lactic acidosis, leucocytosis, hyperkalemia, hyperglycemia without evidence of DKA, and hyponatremia. She was not in shock. She was treated with IVF and insulin drip, initially, and as it became clear that the etiology of her presentation was infectious, with intravenous antibiotics. While initially hepatorenal syndrome was considered, we feel her ELVIA was prerenal due to dehydration and responded to IVF and antibiotic therapy/treatment of sepsis.? The patient had arthrocenthesis done by Dr Soliz on 08/23/22, c/w septic arthritis. The patient was started on vancomycin/cefepime. She went for a left knee arthroscopic debridement and synovectomy of the left knee on 08/24/22, during which pus was evacuated. Blood cultures on admission, as well as arthrocenthesis cultures and the cultures from the washout procedure all grew MSSA. Antibiotics were narrowed to cefazolin, initially, but then changed to oxacillin on 08/27/22 due to persistently positive blood cultures. Repeat blood cultures done on 08/25/22, 08/27/22, 08/29/22, 08/31/22 were still positive. Blood cultures on 09/03/22 finally were negative. A LUE PICC line was placed on 09/05/22. A transthoracic echocardiogram done on 08/24/22 showed no evidence of valvular disease. After going on and off insulin drip several times, she was transitioned to basal bolus insulin and was transferred out of the ICU on 08/25/22. Because there was a difficulty getting the patient to a tertiary care facility on inpatient basis, an outpatient [facility] is being pursued. The patient has been noted to have an intermittent murmur on this admission, likely related to her volume status, but we cannot rule out endocarditis, and she does have a TIPS shunt. She did have a transthoracic echo done again on 09/04/22 to ensure there were no obvious valvular lesions now, and there were none. US abdomen done on 08/26/22 showed a patent TIPS, cirrhotic liver, contracted gallbladder. There was no evidence of intrahepatic abscess. CT abdomen/pelvis on 09/01/22 showed no evidence of intraabdominal abscess. She does have esophageal varices and cholelithiasis. There was evidence of ascites and some amount of pericholecystic fluid which was c/w ascites. There was no clinical evidence of cholecystitis. US abdomen done on 09/04/22 again showed no focal intrahepatic lesions. TIPS appeared stable. I spoke with [facility] [place] [facility] [place] stated that TIPS shunts are not mechanically retrievable/exchangeable and that yes, there is a possibility of seeding, necessitating consideration of long-standing antibiotics. The case was discussed with ID, who recommended switching antibiotics back to cefazolin due to the patient's h/o liver disease, which was done on 09/04/22. The patient is being referred for outpatient ID follow up.? Additionally, on this admission,? CT chest was done on 08/28/22 due to the patient's report of chest pain on inspiration and was negative for a PE or any evidence of septic emboli. The patient required a transfusion of 1 unit of pRBCs for her anemia. She did not have hemodynamically significant bleeding but was heme positive.? She was started on a PPI. She is? also folate deficient and was started on folate replacement. Her diuretics were held due to lower than her baseline BPs on initial admission with evidence of prerenal ELVIA. Diuresis was restarted and intensified by the time of her discharge. She is now on aldactone and torsemide. Diuretics are being used to treat her ascites and edema related to her cirrhosis. Of note, the patient was no longer taking methylphenydate at home and it was not continued on discharge. Her insulin regimen on discharge is lantus 38 units BID, aspart 2 units: 10 grams of carbs consumed, 2 units for every 50 points that her blood sugar is over 150. She met with diabetes education and is being discharged home with a DEX[employer] AI CGM. She is being discharged home with 6 weeks of IV cefazolin starting from her 1st negative blood culture. Her last day of antibiotics is expected to be on 10/15/22. She should have weekly bloodwork to include CBC w/ diff, BMP, magnesium, CRP. Both potassium and magnesium did have to be repleted on this admission. She should follow up with Dr Soliz, who removed her stitches on 09/08/22. She should follow up with her PCP in 1-2 weeks. A referral for [facility] is being sent on discharge. Medical diagnosis necessitation home health referral: MSSA bacteremia and sepsis, L knee septic arthritis Registered Nurse: Check all that apply Instruct on new or changed medication(s)/assess compliance: Ordered Assess for exacerbation of medical condition, instruct patient/caregivers on signs and symptoms to report for early detection: Ordered IV therapy, consisting of: cefazolin 2 grams Q 8 hrs Physical Therapist: Check all that apply Increase strength & endurance for safe mobility at home: Ordered To design/establish home maintenance program: Ordered Fall reduction therapy program for patient with history of frequent falls: Ordered Home safety evaluation and teaching/gait training including stair management (if applicable): Ordered Home Bound Status Requires the aid of supportive device (check all that apply): Walker Describe why leaving home would require a considerable and taxing effort: Requires frequent rest periods and Other (pain due to septic arthritis L knee) Encounter Date and Reason: I certify that a FTF encounter for this patient was performed on September 09, 2022 and that such encounter was related to the primary reason the patient requires home health services. The encounter was conducted in the following manner: By me as the certifying physician, SALES CORRESPONDENT, PA or By an inpatient physician, SALES CORRESPONDENT or PA during an inpatient stay who communicated findings to me, Certification And Authentication I certify that I composed the above information based on my clinical judgment relating to this patient's medical condition and, if applicable, clinical findings communicated to me by the NPP or inpatient physician who performed the FTF encounter. Name of Provider that will be monitoring home health services: Deandra Hutchins
[2022-09-10 09:08] LABS: Methylmalonic Acid 0.23 nmol/mL (<=0.40)
--- NOTE | 2022-09-11 09:02 | INDS_ITS ---
PT Notes Visit Reasons: Hyperglycemia, ELVIA, Hyperkalemia Physical Therapy Inpatient Initial Evaluation Date: 09/02/2022 Dates of Service: 08/24/2022 through 09/02/2022 This is a clinical summary of care provided for the duration of dates listed above. No charge was made in the completion of this documentation. Referring Doctor: Justin Soliz MD PT Orders: PT CONSULT: S/P Ortho surgery.? S/P L knee washout.? WBAT with assistive devices.? Gentle progressions Precautions: Fall. Standard.? WBAT on the left LE with AD. Patient Profile/Admitting Diagnosis:? Janice is a 56-year-old female with septic arthritis of the left knee, bacteremia, s/p arthroscopic irrigation and debridement with synovectomy on postoperative day 0, previous history of colectomy for colon cancer with a colostomy,? longstanding liver [place] [facility] [place]otemia, hyperkalemia, hyperglycemia, and hyponatremia. PMHX: All Active Problems?(Updated 08/23/22 @ 04:03 by Denys Ortiz MD) Knee effusion (Acute) Internal derangement of knee (Acute) Hepatorenal syndrome (Acute) ELVIA (acute kidney injury) (Acute) Acute dehydration (Acute) ADHD (Acute) Crohn's disease in remission (Acute) Anemia of chronic disease (Acute) Acute exacerbation of chronic low back pain (Acute) Back pain (Acute) Stoma bleed (Acute) Chest pain (Acute) H/O malignant neoplasm of colon (Acute) DVT prophylaxis (Acute) Discharge planning issues (Acute) Anemia, blood loss (Acute) GI bleed (Chronic) Medical History? Adjustment disorder Chronic low back pain Colon cancer Depression with anxiety Diabetes mellitus type 2 in obese GERD (gastroesophageal reflux disease) Hyposmia HADLEY (obstructive sleep apnea) PTSD (post-traumatic stress disorder) Vitamin B12 deficiency Vitamin D deficiency Surgical History? happy fourth to see Wednesday yes I will see Wednesday [id number] Wednesday okay by watching H/O ileostomy History of endometrial ablation S/P colectomy S/P D&C (status post dilation and curettage) S/P LEEP Social History/Home Situation: Lives with son in a one-floor private home with 1-2 steps to enter.? Has not walked since she twisted her L knee two weeks ago.? Prior to that,? patient was independent with all aspects of ADLs Equipment Owned/DME: FWW,? SPC,? B[facility] Subjective: NT. See most recent INTEL RECRUITER notes. Objective: General Observation: NT. See most recent INTEL RECRUITER notes. Pain: NT. See most recent INTEL RECRUITER notes. Vital Signs: NT. See most recent INTEL RECRUITER notes. ROM: Right Lower Extremity: Hip flexion WFL. Hip abduction WFL. Knee flexion 20 -80 degrees. Knee extension -20 degrees.? Ankle dorsiflexion WFL. Ankle plantarflexion WFL. Left Lower Extremity: Hip flexion WFL. Hip abduction WFL. Knee flexion WFL. Ankle dorsiflexion WFL. Ankle plantarflexion WFL. Strength: Right Lower Extremity: Hip flexors 5/5. Hip abductors 5/5. Knee flexors 5/5. Knee extensors 5/5. Ankle dorsiflexors 4/5. Ankle plantarflexors 5/5. Left Lower Extremity: Hip flexors 4/5. Hip abductors 4/5. Knee flexors 3-/5. Knee extensors 3-/5. Ankle dorsiflexors 4/5. Ankle plantarflexors 5/5. BED MOBILITY/TRANSFERS? Rolling L/R: independent Supine-sit: independent? Sit-supine: independent ? Sit-stand: independent ? Stand-sit: independent Bed to toilet seat: independent Toilet seat to bed:? independent GAIT: 60 feet using FWW with WBAT on the L LE with supervision.? Did not appear as fatigued compared to last seen two days ago. ? THEREX: Supine heel slides x10,? only able to bend at the knee about 50 degrees Supine SLR x 5 Quads sets x 10 Slide outs x 10 Balance: Static Sitting: Good Dynamic Sitting: Fair Static Standing: Fair Dynamic Standing: Fair Special Tests: Mobility Limitations Standardized Measure [facility] 6 clicks Basic Mobility Inpatient Short Form: Raw Score: 18? CMS Score: 47% deficit? ? ? THERA EX: Ankle DF/PF while seated x 10 Chest expansion exercises with DBE x 5 LAQ to about -20 degrees of knee extension on the L, full LAQ on R x 10 Chest expansion exercises with DBE x 5 Seated marches x 10 Chest expansion exercises with DBE x 5 Informed Consent/Education:? Patient was instructed in purpose of PT consult and plan of care.? Agreeable to proceed with established PT POC to achieve personal goals. ASSESSMENT: Requires use of FWW for all mobility ADL performance and assistance of 1 to maximize independence and reduce fall risk.? Able to work through pain.? Requires pre-medication to maximize independence and ensure safety.? Impaired balance, anxiety over pain level, and difficulty walking all requires skilled services as inpatient. ? may require sub-acute/short-term rehab to achieve optimal functional mobility outcomes. Patient presents with clinical signs and symptoms consistent with current/admit ting diagnoses that have resulted to mobility limitations, gait instability, generalized weakness, and overall ADL decline as demonstrated by the following impairment level findings: 1.? Decreased strength to L hip and knee major muscle groups 2.? Impaired sitting/standing balance 3.? Impaired activity tolerance 4.? Limitation of joint range of motion in L knee and hip 5. Pain and anxiety over pain Impairments are contributing to the following functional limitations: 1.? Decline in bed mobility skills 2.? Decline in transfer skills 3.? Difficulty with ambulation without assistive device and physical assistance 4.? Increased completion time for mobility ADL performance 5.? Increased risk for falls 6.? Difficulty with managing steps alone safely Patient is assessed as a [id number] moderate complexity based on the following: History: 56-year-old female with past medical history as indicated above Examination: Demonstrable impairment in strength, balance, and mobility level with underlying impairments and functional limitations as exhibited above as well as deficit score of 47% utilizing the [facility] Mobility Inpatient Short Form Presentation: Evolving Decision Makin moderate complexity Goals: Goals X1 week 1. Supine-Sit independent 2. Sit-Supine independent 3. Sit-Stand independent 4. Stand-Sit independent with FWW 5. Bed-Chair independent with FWW 6. Chair-Bed independent with FWW 7. Independent gait on level surface with use of FWW for at least 300 feet without report of pain nor dyspnea 8. Independent stair negotiation while holding onto B rails for at least 3 steps without report of pain nor dyspnea 9. Independent with home exercise program 10. Good static and dynamic standing balance/tolerance DISCHARGE RECOMMENDATIONS: [] ? Home with no services [] [] ? Home with services [specify] [] ? Home with outpatient PT [] [] ? SNF for continued rehabilitation [] [] ? Care Home Care [] [] ? SNF versus LTC based on ability to participate and progress [] [X]? Subacute rehab vs. Swing bed level I vs. PT based on progress towards goals and on medical status TREATMENT CODE/TIME: MI Thank you for the opportunity to participate in the care of this patient. Yas Lenz PT, DPT, CLT [facility] [place], [place]
== END 2022-09-09 13:15 | disposition home health service (06) | DRG 853 ==
LOC: ER 08-23 04:42 → ICU 08-23 05:26 → MS 08-26 10:50
PROVIDERS: Family Medicine; Internal Medicine; Student in an Organized Health Care Education/Training Program; Admitting Provider General Practice; Emergency Provider Emergency Medicine; PCP Family Medicine; Visit Provider General Practice
PROC: 0SBD4ZZ Excision of Left Knee Joint, Percutaneous Endoscopic Approach (ICD-10-PCS; CPT 29870; principal; 2022-08-24 09:35)
DX: A41.01 Sepsis due to Methicillin susceptible Staphylococcus aureus (principal); K76.7 Hepatorenal syndrome; M00.062 Staphylococcal arthritis, left knee; N17.9 Acute kidney failure, unspecified; K50.90 Crohn's disease, unspecified, without complications; E87.1 Hypo-osmolality and hyponatremia; E87.21 Acute metabolic acidosis; D84.9 Immunodeficiency, unspecified; I82.611 Acute embolism and thrombosis of superficial veins of right upper extremity; R18.8 Other ascites; I82.612 Acute embolism and thrombosis of superficial veins of left upper extremity; E86.0 Dehydration; Z79.899 Other long term (current) drug therapy; Z79.84 Long term (current) use of oral hypoglycemic drugs; K72.10 Chronic hepatic failure without coma; D63.8 Anemia in other chronic diseases classified elsewhere; G89.29 Other chronic pain; M54.50 Low back pain, unspecified; Z85.038 Personal history of other malignant neoplasm of large intestine; D50.9 Iron deficiency anemia, unspecified; F43.23 Adjustment disorder with mixed anxiety and depressed mood; E66.9 Obesity, unspecified; Z68.34 Body mass index [BMI] 34.0-34.9, adult; K21.9 Gastro-esophageal reflux disease without esophagitis; F43.10 Post-traumatic stress disorder, unspecified; E53.8 Deficiency of other specified B group vitamins; E87.5 Hyperkalemia; E11.65 Type 2 diabetes mellitus with hyperglycemia; Z93.3 Colostomy status; K74.60 Unspecified cirrhosis of liver; F90.9 Attention-deficit hyperactivity disorder, unspecified type; E83.51 Hypocalcemia; I95.9 Hypotension, unspecified; E80.6 Other disorders of bilirubin metabolism; R79.1 Abnormal coagulation profile; E77.8 Other disorders of glycoprotein metabolism; D69.6 Thrombocytopenia, unspecified; B95.61 Methicillin susceptible Staphylococcus aureus infection as the cause of diseases classified elsewhere; R07.81 Pleurodynia; R19.5 Other fecal abnormalities
CPT/HCPCS: 20610; 29876; 36569; 36410; 36415; 36416; 51702; 71045; 71275; 80048; 80053; 80076; 80186; 82805; 82947; 82962; 83090; 84145; 85027; 85384; 85652; 86850; 86900; 86901; 86920; 87040; 87077; 87798; 93005; 93306; 94640; 96365; 96374; 96375; 97110; 97116; 97162; 97530; 99223; 99232; 99285; 73560; 74177; 76700; 76705; 80202; 81003; 81015; 82040; 82607; 82728; 82746; 83540; 83550; 83605; 83735; 83880; 84100; 84484; 85014; 85018; 85025; 85610; 85730; 86140; 86618; 87070; 87075; 87086; 87186; 87205; 89051; 93010; 93970; 93971; 99231; 99233; 99239; 99284; 99291; J0690; J0780; J1100; J1170; J1650; J1815; J1885; J1940; J1941; J2250; J2405; J2700; J3010; J3475; J3490; J7613; P9016

== ENCOUNTER 2022-09-13 20:31 | Emergency (ER) | payer MEDICARE, MEDICAID, SELFPAY ==
[2022-09-13] VITALS (36 sets, daily range): BP systolic 59–132; BP diastolic 31–56; PULSE 78–100; RESP 13–25; TEMP 37; O2SAT 98
--- NOTE | 2022-09-13 20:45 | RT.EKG_ITS ---
APPROVED REPORT Exam: Resting ECG Reason for Exam: SOB Patient Location: E HR:79 bpm ECG Measurements Heart Rate 79 AXIS AZ 115 P 30 QRSd 91 QRS 3 QT 376 T 42 QTc 431 Conclusion Sinus rhythm...normal P axis, V-rate 60- 99 Physivcian: no stemi
[2022-09-13 21:31] LABS: Abs Immature Grans 0.06 10^3/uL (0.0-0.06); Absolute Basophil Count 0.02 10^3/uL (0.0-0.2); Absolute Eosinophil Count 0.08 10^3/uL (0.0-0.7); Absolute Lymphocyte Count 1.76 10^3/uL (1.2-3.4); Absolute Monocyte Count 0.84 10^3/uL (0.1-0.8); Absolute Neutrophil Count 2.28 10^3/uL (1.2-6.7); Basophils % 0.4; Eosinophils % 1.6; HCT 26.8 % (36.0-46.0); HGB 8.9 g/dL (11.2-15.7); Immature Grans % 1.2; Lymphocytes % 34.9; MCH 37.4 pg (27.0-33.0); MCHC 33.2 % (32.0-36.0); MCV 113 fL (80-95); MPV 10.3 fL (8.0-11.0); Monocytes % 16.7; Neutrophils % 45.2; RBC 2.38 10^6/uL (3.93-5.22); RDW 17.9 % (11.7-14.6); RDW-SD 73.6 fL; WBC 5.04 10^3/uL (4.4-10.8)
[2022-09-13 21:50] LABS: Anisocytosis 1+; Diff Comment RBC Morph Reviewed; Macrocytosis 2+; Platelet Count 88 10^3/uL (130-400)
[2022-09-13] MEDS: Normal Saline 1,000 ML 1000 ML IV (21:53)
[2022-09-13 22:00] LABS: AST 46 U/L (15-37); Alkaline Phosphatase 125 U/L (46-116); Anion Gap 11.2 mmol/L (3-11); BUN 38 mg/dL (7-18); CO2 23.8 mmol/L (21.0-32.0); CREATININE 1.6 mg/dL (0.55-1.02); Calcium 8.2 mg/dL (8.5-10.1); Chloride 103 mmol/L (98-107); Estimated GFR 37.62 (mL/min/1.73m2); Glucose 200 mg/dL (74-106); Magnesium 1.3 mg/dL (1.8-2.4); Potassium 4.7 mmol/L (3.5-5.1); Sodium 138 mmol/L (136-145); Total Protein 7.2 g/dL (6.4-8.2)
[2022-09-13 22:11] LABS: ALT < 6 U/L (14-59)
--- NOTE | 2022-09-13 22:42 | W.ED.GENAD ---
Discharge Plan Disposition Patient Disposition: Home Discharge Details Chief Complaint: GenMedical Clinical Impression: Hand cramps, Hypocalcemia, Hypomagnesuria Primary Care Provider: Deandra Hutchins ED Provider: Joe Winn Home Meds and New Rx's Prescriptions: No Action calcium carbonate-vitamin D3 1,000 mg(2,500 mg)-800 unit tablet 1 tab PO BID levalbuterol tartrate [Xopenex HFA] 45 mcg/actuation HFA aerosol inhaler 2 inh inhalation .Q4-6HR metformin 500 mg tablet 1,000 mg PO BID acetaminophen [Mapap Extra Strength] 500 MG tablet 1 - 2 tab PO PRN PRN ondansetron 4 mg tablet,disintegrating 4 mg PO Q8H PRN (Reason: nausea and vomiting) Qty: 30 0RF diclofenac sodium 1 % Gel 2 g topical QID PRN PRNQty: 100 0RF Rx Instructions: apply to Left knee cefazolin in dextrose (iso-os) 2 gram/50 mL Piggyback 2 g IV Q8H Qty: 0 0RF folic acid 1 mg Tablet 1 mg PO DAILY Qty: 30 0RF pantoprazole 20 mg Tablet,Delayed Release (Dr/Ec) 20 mg PO DAILY@0730 Qty: 30 0RF Mag 64 64 mg Tablet,Delayed Release (Dr/Ec) 128 mg PO BID Qty: 120 0RF torsemide 20 mg Tablet 20 mg PO DAILY Qty: 30 0RF spironolactone 100 mg tablet 100 mg PO DAILY Qty: 30 0RF (DME) Dexcom G7 Sensor Device See Rx Instructions .Route Qty: 3 0RF Rx Instructions: For blood sugar monitoring in am, before meals, and at bedtime ([facility]) pen needle, diabetic [Sure-Fine Pen [place]] 31 gauge x 5/16 needle See Rx Instructions .Route Qty: 200 1RF Rx Instructions: For lantus injections BID and aspart AC/HS (DME) Dexcom G7 Profile Grinder Technician Misc See Rx Instructions .Route Qty: 1 0RF Rx Instructions: For blood sugar monitoring AC/HS (DME) lancets 30 gauge misc See Rx Instructions .Route Qty: 200 0RF Rx Instructions: As directed ([facility]) 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 meter Kit See Rx Instructions .Route Qty: 1 0RF Rx Instructions: glucometer for blood sugar checks AC/HS (DME) Blood Glucose Test Strip See Rx Instructions .Route Qty: 200 0RF Rx Instructions: For blood sugar checks AC&HS Levemir FlexPen 100 unit/mL (3 mL) insulin pen 38 unit subcut BID Qty: 15 0RF insulin aspart U-100 [Novolog FlexPen U-100 Insulin] 100 unit/mL (3 mL) insulin pen 1 sliding scale dose subcut USEASDIRECTD MDD 100 units Qty: 15 0RF Rx Instructions: Take AC and HS. Mealtime: take 2 units per 10 grams of carbs consumed, up to 20 units per meal. In addition, take 2 units for every 50 points that blood sugar is over 150, up to 10 units AC/HS. Discharge Instructions Instructions: Hypocalcemia (ED), Hypomagnesemia (ED) Additional Instructions: At this time your magnesium and calcium levels were low. This is likely the cause for your cramping. Please stay hydrated, take the calcium and magnesium as prescribed at the time of your discharge. If you notice any worsening of your symptoms, or any new symptoms such as vomiting, diarrhea, fever, chills, shortness of breath, chest pain, numbness, weakness, or fainting , please return immediately to the emergency department for reevaluation. Please follow up with your primary care provider as soon as possible for reassessment and reevaluation. As always, it was a pleasure participating in your medical care today. Referrals: Deandra Hutchins MD [Primary Care Provider] - Medical Decision Making This is a 56-year-old female with a past medical history of GERD, type 2 diabetes, obstructive sleep apnea, PTSD, hepatorenal syndrome, colectomy and ostomy, LEEP, previous Crohn's disease, with a recent admission and subsequent discharge on 09/09/2022 who at that time had a septic left knee, Staph aureus bacteremia, acute kidney injury, who was discharged on 6 weeks of cefazolin and will be on antibiotics until 10/15/2022, who presents today for cramping in her feet and hands. Patient did have electrolyte abnormalities on a previous admission. She states that today she felt like her hands were cramping up and causing her fingers to digging to her palms. Her feet were also cramping significantly. She was prescribed calcium for home use but unfortunately never got it filled because she did not have the finances to pay for it. She did pay for her other medications. She has also been taking spironolactone the diuretic. She states that she has been drinking, but has also been peeing regularly because of the diuretic. She denies any chest pain or shortness of breath. No other complaints at this time. No other modifying factors. Exam demonstrates evidence of cramping in the left hand with a notably contracted hand. Right hand is more benign for the cramping. Intermittent cramping for the feet bilaterally. Notably dry mucous membranes. No other focal or deficits in general. Patient adamantly refuses any muscle relaxants or benzos. Suspect dehydration in combination with hypocalcemia. Will evaluate for this, gently rehydrate, monitor closely and reassess. 12:03 AM Laboratory work-up has returned, slight improvement compared to when previously discharged. Calcium is notably low at 8.2, magnesium low at 1.3. Patient was given an amp of calcium gluconate, 2 g of magnesium as well as IV fluids. On reassessment patient is doing much better. Cramps have completely resolved. Patient feels well and is asking to be discharged right away. Laboratory work-up otherwise stable. Patient does have prescription for calcium and states that she will go by it in the morning. They do have Tums at home and she can take this in the meantime. Discussed red flags for which to return. I have extensively reviewed the treatment plan and discharge instructions with the patient and their family. I have addressed all patient concerns at this time. The patient and family was made aware of what symptoms to monitor for that would warrant a return to the emergency department. Discussed the plan with the patient and family, they demonstrate verbal understanding and agreement with our assessment and plan at this time. The documentation in this chart was dictated using [employer] dictation software. Please excuse any dictation errors. HPI General Date/Time Provider Initiated Documentation: 09/13/22 21:04. HPI Narrative: This is a 56-year-old female with a past medical history of GERD, type 2 diabetes, obstructive sleep apnea, PTSD, hepatorenal syndrome, colectomy and ostomy, LEEP, previous Crohn's disease, with a recent admission and subsequent discharge on 09/09/2022 who at that time had a septic left knee, Staph aureus bacteremia, acute kidney injury, who was discharged on 6 weeks of cefazolin and will be on antibiotics until 10/15/2022, who presents today for cramping in her feet and hands. Patient did have electrolyte abnormalities on a previous admission. She states that today she felt like her hands were cramping up and causing her fingers to digging to her palms. Her feet were also cramping significantly. She was prescribed calcium for home use but unfortunately never got it filled because she did not have the finances to pay for it. She did pay for her other medications. She has also been taking spironolactone the diuretic. She states that she has been drinking, but has also been peeing regularly because of the diuretic. She denies any chest pain or shortness of breath. No other complaints at this time. No other modifying factors. Related Data Home Medications Medication Instructions Recorded Confirmed acetaminophen 500 mg tablet (Mapap 1 - 2 tab PO PRN PRN 08/19/15 09/13/22 Extra Strength) levalbuterol tartrate 45 2 inh inhalation .Q4-6HR 01/22/20 09/13/22 mcg/actuation aerosol inhaler (Xopenex HFA) calcium carbonate 1,000 mg-vitamin 1 tab PO BID 04/15/20 09/13/22 D3 20 mcg (800 unit) tablet metformin 500 mg tablet 1,000 mg PO BID 06/17/20 09/13/22 ondansetron 4 mg disintegrating 4 mg PO Q8H PRN nausea and 05/21/21 09/13/22 tablet vomiting #30 tabs blood sugar diagnostic (Blood #200 09/09/22 Glucose Test strips) 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 meter #1 09/09/22 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 meter,continuous #1 09/09/22 (Dexcom G7 Profile Grinder Technician) 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 sensor (Dexcom G7 #3 09/09/22 Sensor device) cefazolin 2 gram/50 mL in dextrose 2 g (50 mL) IV Q8H #0 ea 09/09/22 09/13/22 (iso-osmotic) intravenous piggyback diclofenac sodium 1 % topical gel 2 g topical QID PRN PRN #100 grams 09/09/22 09/13/22 folic acid 1 mg tablet 1 mg PO DAILY #30 tabs 09/09/22 09/13/22 insulin aspart U-100 100 unit/mL 1 sliding scale dose subcut 09/09/22 09/13/22 (3 mL) subcutaneous pen (Novolog USEASDIRECTD #15 mL FlexPen U-100 Insulin aspart) insulin detemir U-100 100 unit/mL 38 unit (0.38 mL) subcut BID #15 mL 09/09/22 09/13/22 (3 mL) subcutaneous pen (Levemir FlexPen) lancets 30 gauge #200 ea 09/09/22 magnesium chloride 64 mg 128 mg PO BID #120 tabs 09/09/22 09/13/22 (magnesium chloride) tablet,delayed release (Mag 64) pantoprazole 20 mg tablet,delayed 20 mg PO DAILY@0730 #30 tabs 09/09/22 09/13/22 release pen needle, diabetic 31 gauge x #200 ea 09/09/2207/07 (Sure-Fine Pen [place]) spironolactone 100 mg tablet 100 mg PO DAILY #30 tabs 09/09/22 09/13/22 torsemide 20 mg tablet 20 mg PO DAILY #30 tabs 09/09/22 09/13/22 Previous Rx's Medication Instructions Recorded ondansetron 4 mg disintegrating 4 mg PO Q8H PRN nausea and 05/21/21 tablet vomiting #30 tabs blood sugar diagnostic (Blood #200 ea 09/09/22 Glucose Test strips) 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 meter #1 09/09/22 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 meter,continuous #1 09/09/22 (Dexcom G7 Profile Grinder Technician) 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 sensor (Dexcom G7 #3 09/09/22 Sensor device) cefazolin 2 gram/50 mL in dextrose 2 g (50 mL) IV Q8H #0 ea 09/09/22 (iso-osmotic) intravenous piggyback diclofenac sodium 1 % topical gel 2 g topical QID PRN PRN #100 grams 09/09/22 folic acid 1 mg tablet 1 mg PO DAILY #30 tabs 09/09/22 insulin aspart U-100 100 unit/mL 1 sliding scale dose subcut 09/09/22 (3 mL) subcutaneous pen (Novolog USEASDIRECTD #15 mL FlexPen U-100 Insulin aspart) insulin detemir U-100 100 unit/mL 38 unit (0.38 mL) subcut BID #15 mL 09/09/22 (3 mL) subcutaneous pen (Levemir FlexPen) lancets 30 gauge #200 ea 09/09/22 magnesium chloride 64 mg 128 mg PO BID #120 tabs 09/09/22 (magnesium chloride) tablet,delayed release (Mag 64) pantoprazole 20 mg tablet,delayed 20 mg PO DAILY@0730 #30 tabs 09/09/22 release pen needle, diabetic 31 gauge x #200 ea 09/09/22/16 (Sure-Fine Pen [place]) spironolactone 100 mg tablet 100 mg PO DAILY #30 tabs 09/09/22 torsemide 20 mg tablet 20 mg PO DAILY #30 tabs 09/09/22 Allergies Allergy/AdvReac Type Severity Reaction Status Date / Time codeine AdvReac Unknown unable to Unverified 08/22/22 21:37 take related to colon removal ibuprofen AdvReac Unknown unable to Unverified 08/22/22 21:37 take related to colon removal General Stated Complaint: GenMedical WILL: 3 Review of Systems All systems reviewed & are unremarkable except as noted in HPI and below PFSH All Active Problems (Updated 09/14/22 @ 00:03 by Joe Winn DO) Hand cramps (Acute) Hypocalcemia (Acute) Hypomagnesuria (Acute) Thrombosis of right cephalic vein (Acute) Folate deficiency (Acute) Sepsis (Acute) IDDM (insulin dependent diabetes mellitus) (Chronic) Obesity (BMI 30.0-34.9) (Chronic) Heme + stool (Acute) Hypoglycemia (Acute) Hypokalemia (Acute) Hypomagnesemia (Acute) Pleuritic chest pain (Acute) Staphylococcus aureus bacteremia (Acute) Hypotension (Acute) Thrombocytopenia (Chronic) Leukocytosis (Acute) Coagulopathy (Acute) Hypoproteinemia (Acute) Hypocalcemia (Acute) Gram-positive cocci bacteremia (Acute 08/23/22) Septic arthritis of knee, left (Acute ~08/09/22) S/P washout/debridement: 08/24/2022 Cirrhosis of liver (Chronic) Hyperbilirubinemia (Acute) Acute dehydration (Acute) ADHD (Acute) Crohn's disease in remission (Acute) Anemia of chronic disease (Acute) Acute exacerbation of chronic low back pain (Acute) Back pain (Acute) Stoma bleed (Acute) Chest pain (Acute) H/O malignant neoplasm of colon (Acute) Anemia, blood loss (Acute) GI bleed (Chronic) Medical History Adjustment disorder Chronic low back pain Colon cancer Depression with anxiety Diabetes mellitus type 2 in obese GERD (gastroesophageal reflux disease) Hepatorenal syndrome Hyposmia [place] (obstructive sleep apnea) PTSD (post-traumatic stress disorder) Vitamin B12 deficiency Vitamin D deficiency Surgical History H/O ileostomy History of endometrial ablation S/P colectomy S/P D&C (status post dilation and curettage) S/P LEEP Family History Mother , age 49 due to heart disease Diabetes Heart disease Hypertension Father Heart disease Social History Smoking/Tobacco Use Status: Never Smoking risk assessment performed?: Yes Alcohol Intake: never Drug use: Never Substance use type: does not use Household members: family Housing: house Number of Children: 5 number of grandchildren: 15 Pets and animals: Yes Pets and animals: dog(s) What type of physical activity do you participate in: none Seatbelt use: always Do you feel safe at home: Yes Do you feel safe in your relationship?: Yes Exam Narrative Exam Narrative: 1.Const: Well-nourished, Well-developed, appearing stated age 2.Eyes: PERRL, no conjunctival injection, and symmetrical lids. 3.ENT: Atraumatic external nose and ears. Notably dry MM. Neck: Symmetric, trachea midline, No thyromegaly. 4.CVS: +S1/S2, No murmurs or gallops. Peripheral pulses 2+ and equal in all extremities. Brisk capillary refill in all extremities. 5.RESP: Unlabored respiratory effort. Clear to auscultation bilaterally. No wheezes rales or rhonchi 6.GI: Soft, Nontender/Nondistended, No hepatosplenomegaly. No guarding or rebound. 7.MSK: Normocephalic/Atraumatic, Extremities w/o deformity or ttp No cyanosis or clubbing, notable cramping of the hands bilaterally worse on the left than the right. Patient also has intermittent cramping in her feet bilaterally. Normal movements otherwise. Patient does demonstrate a negative for Trousseau's and Fostex sign. 8.Skin: Warm, Dry. No rashes or lesions. 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 Sensation grossly intact, no focal neurologic deficits. 10.Psych: (AAO) x3. Appropriate mood and affect Course Vital Signs Vital signs: Vital Signs Temperature 37.0 C 09/13/22 20:44 Pulse 86 09/13/22 20:44 Respiratory Rate 14 09/13/22 20:44 Blood Pressure 116/49 L 09/13/22 20:44 Pulse Oximetry 98 09/13/22 20:44 Temperature 37.0 C 09/13/22 20:44 Temperature Source Temporal Artery Scan 09/13/22 20:44 Pulse 86 09/13/22 20:44 Respiratory Rate 16 09/13/22 21:47 Respiratory Effort Normal, Non-Labored 09/13/22 21:47 Respiratory Depth Normal 09/13/22 21:47 Respiratory Pattern Normal 09/13/22 21:47 Blood Pressure 116/49 L 09/13/22 20:44 Blood Pressure Position Sitting 09/13/22 20:44 Pulse Oximetry 98 09/13/22 20:44 Oxygen Delivery Method Room Air 09/13/22 20:44 Oxygen Flow Rate 0 09/13/22 20:44 Lab/Test Results Lab/Test Results: Laboratory Tests Range/Units 09/13/22 09/13/22 21:20 21:20 WBC (4.4-10.8) 10^3/uL 5.04 RBC (3.93-5.22) 10^6/uL 2.38 L Hgb (11.2-15.7) g/dL 8.9 L Hct (36.0-46.0) % 26.8 L MCV (80-95) fL 113 H MCH (27.0-33.0) pg 37.4 H MCHC (32.0-36.0) % 33.2 RDW (11.7-14.6) % 17.9 H Plt Count (130-400) 10^3/uL 88 L MPV (8.0-11.0) fL 10.3 Immature Gran % 1.2 Neutrophils % 45.2 Lymphocytes % 34.9 Monocytes % 16.7 Eosinophils % 1.6 Basophils % 0.4 Nucleated RBC % (0.0-0.3) % 0.0 Absolute Neutrophils (1.2-6.7) 10^3/uL 2.28 Absolute Lymphocytes (1.2-3.4) 10^3/uL 1.76 Absolute Monocytes (0.1-0.8) 10^3/uL 0.84 H Absolute Eosinophils (0.0-0.7) 10^3/uL 0.08 Absolute Basophils (0.0-0.2) 10^3/uL 0.02 RBC Morphology See Below Anisocytosis 1+ Macrocytosis 2+ Sodium (136-145) mmol/L 138 Potassium (3.5-5.1) mmol/L 4.7 Chloride (98-107) mmol/L 103 Carbon Dioxide (21.0-32.0) mmol/L 23.8 Anion Gap (3-11) mmol/L 11.2 H BUN (7-18) mg/dL 38 H Creatinine (0.55-1.02) mg/dL 1.6 H Est GFR (CKD-EPI 2020) (mL/min/1.73m2) 37.62 Glucose (74-106) mg/dL 200 H Calcium (8.5-10.1) mg/dL 8.2 L Magnesium (1.8-2.4) mg/dL 1.3 L Total Bilirubin (0.2-1.0) mg/dL 7.0 H AST (15-37) U/L 46 H ALT (14-59) U/L < 6 L Alkaline Phosphatase (46-116) U/L 125 H Total Protein (6.4-8.2) g/dL 7.2 Albumin (3.4-5.0) g/dL 2.0 L
[2022-09-13] MEDS: MAGNESIUM SULFATE 2 GM/50 ML BAG IVPB (22:52)
[2022-09-13] MEDS: Calcium Gluconate 4.65 MEQ/10 ML VIAL 4.65 MG IVP (22:52)
[2022-09-13] MEDS: Normal Saline 50 ML (23:04)
[2022-09-14] VITALS: PULSE 83; RESP 17
[2022-09-14 00:01] VITALS: BP 121/48; PULSE 83; PULSE 88; RESP 20
[2022-09-14 00:10] VITALS: PULSE 85; RESP 17
[2022-09-14 00:34] VITALS: BP 113/46; PULSE 89; RESP 19; O2SAT 95
== END 2022-09-14 00:35 | disposition home or self-care (01) ==
PROVIDERS: Emergency Provider Student in an Organized Health Care Education/Training Program; PCP Family Medicine
DX: R25.2 Cramp and spasm (principal); E83.51 Hypocalcemia; E83.42 Hypomagnesemia; K76.7 Hepatorenal syndrome; E11.9 Type 2 diabetes mellitus without complications; Z79.4 Long term (current) use of insulin; Z90.49 Acquired absence of other specified parts of digestive tract
CPT/HCPCS: 80053; 93005; 96361; 96365; 99283; 83735; 85025; 93010; J0131; J0612

== ENCOUNTER 2022-09-14 17:35 | Outpatient (REF) | payer MEDICARE, MEDICAID, SELFPAY ==
[2022-09-14 19:37] LABS: Abs Immature Grans 0.04 10^3/uL (0.0-0.06); Absolute Basophil Count 0.02 10^3/uL (0.0-0.2); Absolute Eosinophil Count 0.09 10^3/uL (0.0-0.7); Absolute Lymphocyte Count 1.37 10^3/uL (1.2-3.4); Absolute Monocyte Count 0.54 10^3/uL (0.1-0.8); Absolute Neutrophil Count 1.61 10^3/uL (1.2-6.7); Basophils % 0.5; Eosinophils % 2.5; HCT 24.3 % (36.0-46.0); Immature Grans % 1.1; Lymphocytes % 37.3; MCH 36.4 pg (27.0-33.0); MCHC 32.5 % (32.0-36.0); MCV 112 fL (80-95); MPV 10.6 fL (8.0-11.0); Monocytes % 14.7; Neutrophils % 43.9; RBC 2.17 10^6/uL (3.93-5.22); RDW 17.6 % (11.7-14.6); RDW-SD 72.4 fL; WBC 3.67 10^3/uL (4.4-10.8)
[2022-09-14 19:47] LABS: ALT 6 U/L (14-59); AST 45 U/L (15-37); Albumin 1.9 g/dL (3.4-5.0); Alkaline Phosphatase 121 U/L (46-116); Anion Gap 10.3 mmol/L (3-11); BUN 38 mg/dL (7-18); Bilirubin, Total 6.2 mg/dL (0.2-1.0); C-Reactive Protein 0.76 mg/dL (0.0-0.3); CO2 24.7 mmol/L (21.0-32.0); CREATININE 1.4 mg/dL (0.55-1.02); Calcium 8.1 mg/dL (8.5-10.1); Chloride 104 mmol/L (98-107); Estimated GFR 44.16 (mL/min/1.73m2); Glucose 213 mg/dL (74-106); Magnesium 1.6 mg/dL (1.8-2.4); Potassium 4.2 mmol/L (3.5-5.1); Sodium 139 mmol/L (136-145); Total Protein 6.5 g/dL (6.4-8.2)
[2022-09-14 20:20] LABS: Diff Comment RBC Morph Reviewed; HGB 7.9 g/dL (11.2-15.7); Platelet Count 77 10^3/uL (130-400)
[2022-09-14 20:21] LABS: Anisocytosis 1+; Macrocytosis 2+
[2022-09-15 06:46] LABS: Lab Add On Test DONE
[2022-09-15 06:59] LABS: Hemoglobin A1C 5.1 % (<5.7)
== END 2022-09-14 17:36 | disposition home or self-care (01) ==
LOC: LBN 17:35
PROVIDERS: Internal Medicine; PCP Family Medicine; Visit Provider Internal Medicine
DX: R78.81 Bacteremia (principal); B95.61 Methicillin susceptible Staphylococcus aureus infection as the cause of diseases classified elsewhere
CPT/HCPCS: 80053; 83036; 83735; 85025; 86140

== ENCOUNTER 2022-09-18 18:56 | Emergency (ER) | payer MEDICARE, MEDICAID, SELFPAY ==
[2022-09-18 19:04] VITALS: BP 128/48; PULSE 89; RESP 16; TEMP 37.1
--- NOTE | 2022-09-18 19:26 | NUR.NOTE ---
Pt presents to ED via POV with family at bedside. Per pt, was recently discharged from hospital after surgery and sepsis tx. Pt states has felt like passing out when changing positions, has felt nauseous off and on, and observed blood in ostomy bag. Pt denies n/v, palpitations, headache, sore throat, cough, vision changes. VSS, pt hooked up to VS equipment, call light within reach, no other needs verbalized at this time.
--- NOTE | 2022-09-18 19:28 | ED.GENADUL_ITS ---
Discharge Plan Disposition Patient Disposition: Home Condition: Stable Discharge Details Clinical Impression: Stoma bleed Primary Care Provider: Deandra Hutchins ED Provider: Martin De Leon Home Meds and New Rx's Prescriptions: Continued calcium carbonate-vitamin D3 1,000 mg(2,500 mg)-800 unit tablet 1 tab PO BID levalbuterol tartrate [Xopenex HFA] 45 mcg/actuation HFA aerosol inhaler 2 inh inhalation .Q4-6HR metformin 500 mg tablet 1,000 mg PO BID acetaminophen [Mapap Extra Strength] 500 MG tablet 1 - 2 tab PO PRN PRN ondansetron 4 mg tablet,disintegrating 4 mg PO Q8H PRN (Reason: nausea and vomiting) Qty: 30 0RF diclofenac sodium 1 % Gel 2 g topical QID PRN PRNQty: 100 0RF Rx Instructions: apply to Left knee cefazolin in dextrose (iso-os) 2 gram/50 mL Piggyback 2 g IV Q8H Qty: 0 0RF folic acid 1 mg Tablet 1 mg PO DAILY Qty: 30 0RF pantoprazole 20 mg Tablet,Delayed Release (Dr/Ec) 20 mg PO DAILY@0730 Qty: 30 0RF Mag 64 64 mg Tablet,Delayed Release (Dr/Ec) 128 mg PO BID Qty: 120 0RF torsemide 20 mg Tablet 20 mg PO DAILY Qty: 30 0RF spironolactone 100 mg tablet 100 mg PO DAILY Qty: 30 0RF (DME) Dexcom G7 Sensor Device See Rx Instructions .Route Qty: 3 0RF Rx Instructions: For blood sugar monitoring in am, before meals, and at bedtime ([facility]) pen needle, diabetic [Sure-Fine Pen [facility]] 31 gauge x 5/16 needle See Rx Instructions .Route Qty: 200 1RF Rx Instructions: For lantus injections BID and aspart AC/HS (DME) Dexcom G7 Infection Prevention Coordinator Misc See Rx Instructions .Route Qty: 1 0RF Rx Instructions: For blood sugar monitoring AC/HS (DME) lancets 30 gauge misc See Rx Instructions .Route Qty: 200 0RF Rx Instructions: As directed ([facility]) 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 meter Kit See Rx Instructions .Route Qty: 1 0RF Rx Instructions: glucometer for blood sugar checks AC/HS ([facility]) Blood Glucose Test Strip See Rx Instructions .Route Qty: 200 0RF Rx Instructions: For blood sugar checks AC&HS insulin aspart U-100 [Novolog FlexPen U-100 Insulin] 100 unit/mL (3 mL) insulin pen 1 sliding scale dose subcut USEASDIRECTD MDD 100 units Qty: 15 0RF Rx Instructions: Take AC and HS. Mealtime: take 2 units per 10 grams of carbs consumed, up to 20 units per meal. In addition, take 2 units for every 50 points that blood sugar is over 150, up to 10 units AC/HS. Levemir FlexPen 100 unit/mL (3 mL) insulin pen 15 unit subcut DAILY Discharge Instructions Instructions: Hypomagnesemia (ED) Additional Instructions: your blood count was higher then it was when it was last checked make sure to try and increase your dietary intake of magnesium follow up with your primary care provider within 1-2 weeks and have your electrolytes rechecked if you feel more ill, have severe pain or difficulty breathing return to the emergency department Medical Decision Making 56 year old female with h/o previously noninsulin dependent diabetes mellitus, cirrhosis of the liver due to DAMON s/p TIPS, H/o colon ca s/p ostomy in 1999, recent admission for sepsis secondary to septic knee and is receiving continued outpatient antibiotics, who comes in with cc of noting bright red blood in her ostomy bag today. Denies abdominal pain, fevers, n/v. She has no chest pain or dyspnea. She is caox4 does have pressure speech but is calm and answering question appropriately. Her ostomy bag doesn't have a clear area to see into, she states when she was here she had to change her own ostomy bags. No abdmoinal tenderness. Will check cbc, cmp, coags, given lack of abdominal tenderness do not feel ct imaging indicated labs show no significant changes from baseline, mild increase in K to 5.6 but has had this in the past, coags, bilirubin also have been elevated, hemoglobin actually improved from last check and is 9.1. Na after correction for hyperglycemia is 134, anion gap normal so doubt dka. She feels well, removed ostomy bag and she did have 2 areas around the base of the ostomy at the 8 olock and 3 oclock position that I cauterized with silver nitrate. She feelswell enough for d/c and given labs that are at her baseline and she had an area on her ostomy site that I wasable tocauterize with brown heme negative stool feel she can be discharged and f/u with her pcp within a week, return precautions given Differential Diagnosis Differential Diagnosis: stomal bleeding, gi bleed HPI General Mode of arrival: wheelchair . Date/Time Provider Initiated Documentation: 09/18/22 19:11 . Limitations to Documentation: no limitations . Information obtained by: patient and family . History of Present Illness 56 year old F presents to the emergency department with the chief complaint of bright red blood in ostomy bag, described as moderate, Patient started experiencing this hour(s) (6) and it has been constant. No relieving factors improve symptom(s), No exacerbating factors reported . Patient notes denies chest pain, fever/chills and shortness of breath. Patient did receive the following treatments prior to arrival, none Related Data Home Medications Medication Instructions Recorded Confirmed acetaminophen 500 mg tablet (Mapap 1 - 2 tab PO PRN PRN 08/19/15 09/13/22 Extra Strength) levalbuterol tartrate 45 2 inh inhalation .Q4-6HR 01/22/20 09/13/22 mcg/actuation aerosol inhaler (Xopenex HFA) calcium carbonate 1,000 mg-vitamin 1 tab PO BID 04/15/20 09/13/22 D3 20 mcg (800 unit) tablet metformin 500 mg tablet 1,000 mg PO BID 06/17/20 09/13/22 ondansetron 4 mg disintegrating 4 mg PO Q8H PRN nausea and 05/21/21 09/13/22 tablet vomiting #30 tabs blood sugar diagnostic (Blood #200 09/09/22 Glucose Test strips) 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 meter #1 ea 09/09/22 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 meter,continuous #1 09/09/22 (Dexcom G7 Infection Prevention Coordinator) 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 sensor (Dexcom G7 #3 09/09/22 Sensor device) cefazolin 2 gram/50 mL in dextrose 2 g (50 mL) IV Q8H #0 ea 09/09/22 09/18/22 (iso-osmotic) intravenous piggyback diclofenac sodium 1 % topical gel 2 g topical QID PRN PRN #100 grams 09/09/22 09/13/22 folic acid 1 mg tablet 1 mg PO DAILY #30 tabs 09/09/22 09/13/22 insulin aspart U-100 100 unit/mL 1 sliding scale dose subcut 09/09/22 09/18/22 (3 mL) subcutaneous pen (Novolog USEASDIRECTD #15 mL FlexPen U-100 Insulin aspart) lancets 30 gauge #200 ea 09/09/22 magnesium chloride 64 mg 128 mg PO BID #120 tabs 09/09/22 09/18/22 (magnesium chloride) tablet,delayed release (Mag 64) pantoprazole 20 mg tablet,delayed 20 mg PO DAILY@0730 #30 tabs 09/09/22 09/18/22 release pen needle, diabetic 31 gauge x #200 ea 09/09/22/ (Sure-Fine Pen [facility]) spironolactone 100 mg tablet 100 mg PO DAILY #30 tabs 09/09/22 09/18/22 torsemide 20 mg tablet 20 mg PO DAILY #30 tabs 09/09/22 09/18/22 insulin detemir U-100 100 unit/mL 15 unit subcut DAILY 09/18/22 09/18/22 (3 mL) subcutaneous pen (Levemir FlexPen) Previous Rx's Medication Instructions Recorded ondansetron 4 mg disintegrating 4 mg PO Q8H PRN nausea and 05/21/21 tablet vomiting #30 tabs blood sugar diagnostic (Blood #200 ea 09/09/22 Glucose Test strips) 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 meter #1 09/09/22 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 meter,continuous #1 09/09/22 (Dexcom G7 Infection Prevention Coordinator) 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 sensor (Dexcom G7 #3 09/09/22 Sensor device) cefazolin 2 gram/50 mL in dextrose 2 g (50 mL) IV Q8H #0 ea 09/09/22 (iso-osmotic) intravenous piggyback diclofenac sodium 1 % topical gel 2 g topical QID PRN PRN #100 grams 09/09/22 folic acid 1 mg tablet 1 mg PO DAILY #30 tabs 09/09/22 insulin aspart U-100 100 unit/mL 1 sliding scale dose subcut 09/09/22 (3 mL) subcutaneous pen (Novolog USEASDIRECTD #15 mL FlexPen U-100 Insulin aspart) lancets 30 gauge #200 ea 09/09/22 magnesium chloride 64 mg 128 mg PO BID #120 tabs 09/09/22 (magnesium chloride) tablet,delayed release (Mag 64) pantoprazole 20 mg tablet,delayed 20 mg PO DAILY@0730 #30 tabs 09/09/22 release pen needle, diabetic 31 gauge x #200 ea 09/09/2207/07 (Sure-Fine Pen [facility]) spironolactone 100 mg tablet 100 mg PO DAILY #30 tabs 09/09/22 torsemide 20 mg tablet 20 mg PO DAILY #30 tabs 09/09/22 Allergies Allergy/AdvReac Type Severity Reaction Status Date / Time codeine AdvReac Unknown unable to Unverified 09/18/22 19:06 take related to colon removal ibuprofen AdvReac Unknown unable to Unverified 09/18/22 19:06 take related to colon removal General Stated Complaint: GenMedical WILL: 3 Review of Systems All systems reviewed & are unremarkable except as noted in HPI and below Constitutional Constitutional: Denies chills, Denies fever(s) and Denies weakness Cardiovascular Cardiovascular: Denies chest pain and Denies dyspnea Respiratory Respiratory: Denies cough and Denies dyspnea Gastrointestinal Gastrointestinal: Denies abdominal pain, Denies nausea and Denies vomiting Integumentary/Breasts Skin/Breast: Denies rash Neurologic Neurologic: Denies weakness PFSH All Active Problems (Updated 09/18/22 @ 21:20 by Martin De Leon MD) Hand cramps (Acute) Hypocalcemia (Acute) Hypomagnesuria (Acute) Thrombosis of right cephalic vein (Acute) Folate deficiency (Acute) Sepsis (Acute) IDDM (insulin dependent diabetes mellitus) (Chronic) Obesity (BMI 30.0-34.9) (Chronic) Heme + stool (Acute) Hypoglycemia (Acute) Hypokalemia (Acute) Hypomagnesemia (Acute) Pleuritic chest pain (Acute) Staphylococcus aureus bacteremia (Acute) Hypotension (Acute) Thrombocytopenia (Chronic) Leukocytosis (Acute) Coagulopathy (Acute) Hypoproteinemia (Acute) Hypocalcemia (Acute) Gram-positive cocci bacteremia (Acute 08/23/22) Septic arthritis of knee, left (Acute ~08/09/22) S/P washout/debridement: 08/24/2022 Cirrhosis of liver (Chronic) Hyperbilirubinemia (Acute) Acute dehydration (Acute) ADHD (Acute) Crohn's disease in remission (Acute) Anemia of chronic disease (Acute) Acute exacerbation of chronic low back pain (Acute) Back pain (Acute) Stoma bleed (Acute) Chest pain (Acute) H/O malignant neoplasm of colon (Acute) Anemia, blood loss (Acute) GI bleed (Chronic) Medical History Adjustment disorder Chronic low back pain Colon cancer Depression with anxiety Diabetes mellitus type 2 in obese GERD (gastroesophageal reflux disease) Hepatorenal syndrome Hyposmia HADLEY (obstructive sleep apnea) PTSD (post-traumatic stress disorder) Vitamin B12 deficiency Vitamin D deficiency Surgical History H/O ileostomy History of endometrial ablation S/P colectomy S/P D&C (status post dilation and curettage) S/P LEEP Family History Mother , age 49 due to heart disease Diabetes Heart disease Hypertension Father Heart disease Social History Smoking/Tobacco Use Status: Never Smoking risk assessment performed?: Yes Alcohol Intake: never Drug use: Never Substance use type: does not use Household members: family Housing: house Number of Children: 5 number of grandchildren: 15 Pets and animals: Yes Pets and animals: dog(s) What type of physical activity do you participate in: none Seatbelt use: always Do you feel safe at home: Yes Do you feel safe in your relationship?: Yes Exam Const General: no acute distress Orientation: alert HENWV Head: normal to inspection Ears: external ears normal General nose exam: external nose normal Mouth: moist mucous membranes Eyes General: appearance normal, both eyes and all related structures Neck Neck: normal visual inspection Resp Effort & Inspection: normal respiratory effort and able to speak in complete sentences Cardio Rate: regular rate GI Palpation: soft and nontender Skin General skin exam: no rashes or lesions noted Neuro General: patient alert and patient oriented x3 Extrem General: normal to inspection Course Vital Signs Vital signs: Vital Signs Temperature 37.1 C 09/18/22 19:04 Pulse 89 09/18/22 19:04 Respiratory Rate 16 09/18/22 19:04 Blood Pressure 128/48 L 09/18/22 19:04 Temperature 37.1 C 09/18/22 19:04 Temperature Source Temporal Artery Scan 09/18/22 19:04 Pulse 89 09/18/22 19:04 Respiratory Rate 16 09/18/22 19:04 Respiratory Effort Normal 09/18/22 19:23 Blood Pressure 128/48 L 09/18/22 19:04 Blood Pressure Position Sitting 09/18/22 19:04 Oxygen Delivery Method Room Air 09/18/22 19:04 Oxygen Flow Rate 0 09/18/22 19:04 Pain Level 0 09/18/22 19:04
[2022-09-18 20:20] LABS: Abs Immature Grans 0.06 10^3/uL (0.0-0.06); Absolute Basophil Count 0.03 10^3/uL (0.0-0.2); Absolute Eosinophil Count 0.03 10^3/uL (0.0-0.7); Absolute Lymphocyte Count 1.07 10^3/uL (1.2-3.4); Absolute Monocyte Count 0.86 10^3/uL (0.1-0.8); Absolute Neutrophil Count 3.55 10^3/uL (1.2-6.7); Basophils % 0.5; Eosinophils % 0.5; HCT 26.7 % (36.0-46.0); HGB 9.1 g/dL (11.2-15.7); Immature Grans % 1.1; Lymphocytes % 19.1; MCH 37.8 pg (27.0-33.0); MCHC 34.1 % (32.0-36.0); MCV 111 fL (80-95); MPV 10.4 fL (8.0-11.0); Monocytes % 15.4; Neutrophils % 63.4; Platelet Count 111 10^3/uL (130-400); RBC 2.41 10^6/uL (3.93-5.22); RDW 16.6 % (11.7-14.6); RDW-SD 68.4 fL
[2022-09-18 20:39] LABS: AST 44 U/L (15-37); Albumin 2.1 g/dL (3.4-5.0); Alkaline Phosphatase 107 U/L (46-116); Anion Gap 9.9 mmol/L (3-11); BUN 42 mg/dL (7-18); Bilirubin, Direct 4.1 mg/dL (0.0-0.2); Bilirubin, Total 8.5 mg/dL (0.2-1.0); CO2 22.1 mmol/L (21.0-32.0); CREATININE 1.6 mg/dL (0.55-1.02); Calcium 8.3 mg/dL (8.5-10.1); Chloride 97 mmol/L (98-107); Estimated GFR 37.62 (mL/min/1.73m2); Glucose 297 mg/dL (74-106); Magnesium 1.6 mg/dL (1.8-2.4); Potassium 5.6 mmol/L (3.5-5.1); Sodium 129 mmol/L (136-145); Total Protein 7.2 g/dL (6.4-8.2)
[2022-09-18 20:40] LABS: Anisocytosis 1+; Diff Comment RBC Morph Reviewed; Macrocytosis 2+
[2022-09-18 20:41] LABS: INR 1.5 (0.9-1.1); PTT Activated 28.3 sec (21.5-31.9); Prothrombin Time 15.1 sec (9.3-11.0)
[2022-09-18 21:04] LABS: ALT 6 U/L (14-59)
== END 2022-09-18 21:29 | disposition home or self-care (01) ==
PROVIDERS: Emergency Provider Emergency Medicine; PCP Family Medicine
DX: K94.01 Colostomy hemorrhage (principal); E83.42 Hypomagnesemia; E11.9 Type 2 diabetes mellitus without complications; K75.81 Nonalcoholic steatohepatitis (NASH); K74.60 Unspecified cirrhosis of liver
CPT/HCPCS: 80053; 86850; 86900; 86901; 99283; 82248; 83735; 85025; 85610; 85730

== ENCOUNTER 2022-09-21 18:28 | Outpatient (REF) | payer MEDICARE, MEDICAID, SELFPAY ==
[2022-09-21 21:33] LABS: Abs Immature Grans 0.09 10^3/uL (0.0-0.06); Absolute Basophil Count 0.03 10^3/uL (0.0-0.2); Absolute Eosinophil Count 0.04 10^3/uL (0.0-0.7); Absolute Lymphocyte Count 1.27 10^3/uL (1.2-3.4); Absolute Monocyte Count 0.75 10^3/uL (0.1-0.8); Absolute Neutrophil Count 3.94 10^3/uL (1.2-6.7); Basophils % 0.5; Eosinophils % 0.7; HGB 9.1 g/dL (11.2-15.7); Immature Grans % 1.5; Lymphocytes % 20.8; MCH 37.8 pg (27.0-33.0); MCHC 33.7 % (32.0-36.0); MCV 112 fL (80-95); MPV 10.9 fL (8.0-11.0); Monocytes % 12.3; Neutrophils % 64.2; Platelet Count 117 10^3/uL (130-400); RBC 2.41 10^6/uL (3.93-5.22); RDW 15.8 % (11.7-14.6); RDW-SD 65.1 fL; WBC 6.12 10^3/uL (4.4-10.8)
[2022-09-21 21:58] LABS: AST 36 U/L (15-37); Alkaline Phosphatase 108 U/L (46-116); Anion Gap 12.9 mmol/L (3-11); BUN 46 mg/dL (7-18); Bilirubin, Total 6.6 mg/dL (0.2-1.0); C-Reactive Protein 0.39 mg/dL (0.0-0.3); CO2 21.1 mmol/L (21.0-32.0); CREATININE 1.5 mg/dL (0.55-1.02); Calcium 8.1 mg/dL (8.5-10.1); Chloride 95 mmol/L (98-107); Estimated GFR 40.65 (mL/min/1.73m2); Glucose 376 mg/dL (74-106); Magnesium 1.6 mg/dL (1.8-2.4); Potassium 4.7 mmol/L (3.5-5.1); Sodium 129 mmol/L (136-145); Total Protein 6.7 g/dL (6.4-8.2)
[2022-09-21 22:07] LABS: ALT < 6 U/L (14-59)
[2022-09-21 22:22] LABS: Diff Comment RBC Morph Reviewed; Macrocytosis 2+
[2022-09-21 22:24] LABS: Poikilocytes 1+
== END 2022-09-21 18:29 | disposition home or self-care (01) ==
LOC: NCHCN 18:28
PROVIDERS: PCP Family Medicine; Visit Provider Family Medicine
DX: R78.81 Bacteremia (principal)
CPT/HCPCS: 80053; 83735; 85025; 86140

== ENCOUNTER 2022-09-28 14:04 | Outpatient (REF) | payer MEDICARE, MEDICAID, SELFPAY ==
[2022-09-28 13:03] LABS: Abs Immature Grans 0.14 10^3/uL (0.0-0.06); Absolute Basophil Count 0.03 10^3/uL (0.0-0.2); Absolute Eosinophil Count 0.08 10^3/uL (0.0-0.7); Absolute Lymphocyte Count 1.55 10^3/uL (1.2-3.4); Absolute Monocyte Count 1.08 10^3/uL (0.1-0.8); Absolute Neutrophil Count 4.34 10^3/uL (1.2-6.7); Basophils % 0.4; Eosinophils % 1.1; HGB 9.5 g/dL (11.2-15.7); Immature Grans % 1.9; Lymphocytes % 21.5; MCH 37.3 pg (27.0-33.0); MCHC 33.9 % (32.0-36.0); MCV 110 fL (80-95); MPV 11.2 fL (8.0-11.0); Neutrophils % 60.1; RBC 2.55 10^6/uL (3.93-5.22); RDW 14.5 % (11.7-14.6); RDW-SD 59.1 fL; WBC 7.22 10^3/uL (4.4-10.8)
[2022-09-28 13:18] LABS: ALT 6 U/L (14-59); AST 35 U/L (15-37); Albumin 2.1 g/dL (3.4-5.0); Alkaline Phosphatase 116 U/L (46-116); Anion Gap 9.3 mmol/L (3-11); BUN 38 mg/dL (7-18); Bilirubin, Total 7.1 mg/dL (0.2-1.0); CO2 20.7 mmol/L (21.0-32.0); CREATININE 1.1 mg/dL (0.55-1.02); Calcium 8.3 mg/dL (8.5-10.1); Chloride 98 mmol/L (98-107); Estimated GFR 58.97 (mL/min/1.73m2); Glucose 330 mg/dL (74-106); Magnesium 1.4 mg/dL (1.8-2.4); Sodium 128 mmol/L (136-145); Total Protein 6.7 g/dL (6.4-8.2)
[2022-09-28 13:20] LABS: Platelet Count 95 10^3/uL (130-400)
[2022-09-28 13:21] LABS: Macrocytosis 1+
== END 2022-09-28 14:05 | disposition home or self-care (01) ==
LOC: NCHCN 14:04
PROVIDERS: PCP Family Medicine; Visit Provider Family Medicine
DX: B95.62 Methicillin resistant Staphylococcus aureus infection as the cause of diseases classified elsewhere; M00.062 Staphylococcal arthritis, left knee
CPT/HCPCS: 80053; 83735; 85025; 86140

== ENCOUNTER 2022-10-05 12:35 | Outpatient (REF) | payer MEDICARE, MEDICAID, SELFPAY ==
[2022-10-05 13:18] LABS: Abs Immature Grans 0.05 10^3/uL (0.0-0.06); Absolute Basophil Count 0.02 10^3/uL (0.0-0.2); Absolute Eosinophil Count 0.03 10^3/uL (0.0-0.7); Absolute Lymphocyte Count 0.72 10^3/uL (1.2-3.4); Absolute Monocyte Count 0.45 10^3/uL (0.1-0.8); Absolute Neutrophil Count 2.41 10^3/uL (1.2-6.7); Basophils % 0.5; Eosinophils % 0.8; HCT 26.2 % (36.0-46.0); HGB 8.8 g/dL (11.2-15.7); Immature Grans % 1.4; Lymphocytes % 19.6; MCH 37.1 pg (27.0-33.0); MCHC 33.6 % (32.0-36.0); MCV 111 fL (80-95); MPV 12.1 fL (8.0-11.0); Monocytes % 12.2; Neutrophils % 65.5; RBC 2.37 10^6/uL (3.93-5.22); RDW-SD 56.1 fL; WBC 3.68 10^3/uL (4.4-10.8)
[2022-10-05 13:33] LABS: ALT 11 U/L (14-59); AST 31 U/L (15-37); Albumin 1.9 g/dL (3.4-5.0); Alkaline Phosphatase 132 U/L (46-116); Anion Gap 6.7 mmol/L (3-11); BUN 38 mg/dL (7-18); Bilirubin, Total 3.9 mg/dL (0.2-1.0); C-Reactive Protein 0.31 mg/dL (0.0-0.3); CO2 26.3 mmol/L (21.0-32.0); CREATININE 1.2 mg/dL (0.55-1.02); Calcium 8.4 mg/dL (8.5-10.1); Chloride 101 mmol/L (98-107); Estimated GFR 53.13 (mL/min/1.73m2); Glucose 261 mg/dL (74-106); Magnesium 1.3 mg/dL (1.8-2.4); Potassium 4.7 mmol/L (3.5-5.1); Sodium 134 mmol/L (136-145); Total Protein 5.9 g/dL (6.4-8.2)
[2022-10-05 13:45] LABS: Diff Comment Diff Reviewed; Macrocytosis 2+; Platelet Count 57 10^3/uL (130-400)
== END 2022-10-05 12:36 | disposition home or self-care (01) ==
LOC: NCHCN 12:35
PROVIDERS: PCP Family Medicine; Visit Provider Family Medicine
DX: M00.062 Staphylococcal arthritis, left knee; A41.01 Sepsis due to Methicillin susceptible Staphylococcus aureus; R74.8 Abnormal levels of other serum enzymes; R79.82 Elevated C-reactive protein (CRP); R79.89 Other specified abnormal findings of blood chemistry; D50.9 Iron deficiency anemia, unspecified
CPT/HCPCS: 80053; 83735; 85025; 86140

== ENCOUNTER 2022-10-07 14:01 | Outpatient (REF) | payer MEDICARE, MEDICAID, SELFPAY ==
[2022-10-07 15:47] LABS: HCT 30.2 % (36.0-46.0); HGB 10.2 g/dL (11.2-15.7); MCH 36.8 pg (27.0-33.0); MCHC 33.8 % (32.0-36.0); MCV 109 fL (80-95); MPV 11.8 fL (8.0-11.0); RBC 2.77 10^6/uL (3.93-5.22); RDW 13.5 % (11.7-14.6); WBC 6.13 10^3/uL (4.4-10.8)
[2022-10-07 16:12] LABS: Platelet Count 74 10^3/uL (130-400)
[2022-10-07 16:27] LABS: Folate > 20.0 ng/mL (8.6-20.0)
== END 2022-10-07 14:02 | disposition home or self-care (01) ==
LOC: NCHCN 14:01
PROVIDERS: PCP Family Medicine; Visit Provider Family Medicine
DX: D50.9 Iron deficiency anemia, unspecified (principal)
CPT/HCPCS: 85027; 82746

== ENCOUNTER → 2022-10-09 08:51 | Outpatient (BNVA) | payer MEDICARE, SELFPAY | PROVIDERS: PCP Family Medicine; Referring Provider Family Medicine; Visit Provider Student in an Organized Health Care Education/Training Program | DX: Z47.89 Encounter for other orthopedic aftercare (principal); M00.062 Staphylococcal arthritis, left knee ==

== ENCOUNTER 2022-10-09 20:40 | Emergency (ER) | payer MEDICARE, SELFPAY ==
[2022-10-09 20:45] VITALS: BP 129/63; PULSE 91; RESP 16; TEMP 36.8; O2SAT 97
--- NOTE | 2022-10-09 20:45 | W.ED.GENAD ---
Discharge Plan Disposition Patient Disposition: Home Condition: Good Discharge Details Clinical Impression: Stoma bleed Primary Care Provider: Deandra Hutchins ED Provider: Rob Manrique Meds and New Rx's Prescriptions: Continued levalbuterol tartrate [Xopenex HFA] 45 mcg/actuation HFA aerosol inhaler 2 inh inhalation .Q4-6HR metformin 500 mg tablet 1,000 mg PO BID acetaminophen [Mapap Extra Strength] 500 MG tablet 1 - 2 tab PO PRN PRN diclofenac sodium 1 % Gel 2 g topical QID PRN PRNQty: 100 0RF Rx Instructions: apply to Left knee cefazolin in dextrose (iso-os) 2 gram/50 mL Piggyback 2 g IV Q8H Qty: 0 0RF folic acid 1 mg Tablet 1 mg PO DAILY Qty: 30 0RF pantoprazole 20 mg Tablet,Delayed Release (Dr/Ec) 20 mg PO DAILY@0730 Qty: 30 0RF Mag 64 64 mg Tablet,Delayed Release (Dr/Ec) 128 mg PO BID Qty: 120 0RF torsemide 20 mg Tablet 20 mg PO DAILY Qty: 30 0RF spironolactone 100 mg tablet 100 mg PO DAILY Qty: 30 0RF (DME) Dexcom G7 Sensor Device See Rx Instructions .Route Qty: 3 0RF Rx Instructions: For blood sugar monitoring in am, before meals, and at bedtime (DME) pen needle, diabetic [Sure-Fine Pen [facility]] 31 gauge x 5/16 needle See Rx Instructions .Route Qty: 200 1RF Rx Instructions: For lantus injections BID and aspart AC/HS (DME) Dexcom G7 Remote Computer Terminal Operator Misc See Rx Instructions .Route Qty: 1 0RF Rx Instructions: For blood sugar monitoring AC/HS (DME) lancets 30 gauge misc See Rx Instructions .Route Qty: 200 0RF Rx Instructions: As directed (DME) 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 meter Kit See Rx Instructions .Route Qty: 1 0RF Rx Instructions: glucometer for blood sugar checks AC/HS (DME) Blood Glucose Test Strip See Rx Instructions .Route Qty: 200 0RF Rx Instructions: For blood sugar checks AC&HS insulin aspart U-100 [Novolog FlexPen U-100 Insulin] 100 unit/mL (3 mL) insulin pen 1 sliding scale dose subcut USEASDIRECTD MDD 100 units Qty: 15 0RF Rx Instructions: Take AC and HS. Mealtime: take 2 units per 10 grams of carbs consumed, up to 20 units per meal. In addition, take 2 units for every 50 points that blood sugar is over 150, up to 10 units AC/HS. Levemir FlexPen 100 unit/mL (3 mL) insulin pen 15 unit subcut DAILY Discharge Instructions Care Plan Goals: You were seen in the ED for stomal bleeding which was controlled with silver nitrate cautery and TXA. Please follow-up with your surgeon on Wednesday as planned. Return to ED for any further bleeding or other concerns. Medical Decision Making Patient presenting with stomal bleeding. Use of silver nitrate and TXA has controlled bleeding. Patient has follow-up with her surgeon on Wednesday. Discharged home in good condition. Return precautions provided. HPI General Mode of arrival: ambulatory. Date/Time Provider Initiated Documentation: 10/09/22 20:45. Limitations to Documentation: no limitations. Information obtained by: patient. HPI Narrative: Patient presents to ED with bleeding from her stoma. Patient seen here September 18 for same. She has follow-up with her surgeon this coming Wednesday. Began bleeding tonight and after holding pressure for 1 hour she came in as it continued to bleed. Stool is normal. Related Data Home Medications Medication Instructions Recorded Confirmed acetaminophen 500 mg tablet (Mapap 1 - 2 tab PO PRN PRN 08/19/15 10/09/22 Extra Strength) levalbuterol tartrate 45 2 inh inhalation .Q4-6HR 01/22/20 10/09/22 mcg/actuation aerosol inhaler (Xopenex HFA) metformin 500 mg tablet 1,000 mg PO BID 06/17/20 10/09/22 blood sugar diagnostic (Blood #200 bian 09/09/22 10/09/22 Glucose Test strips) 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 meter #1 ea 09/09/22 10/09/22 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 meter,continuous #1 iban 09/09/22 10/09/22 (Dexcom G7 Remote Computer Terminal Operator) 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 sensor (Dexcom G7 #3 ea 09/09/22 10/09/22 Sensor device) cefazolin 2 gram/50 mL in dextrose 2 g (50 mL) IV Q8H #0 iban 09/09/22 10/09/22 (iso-osmotic) intravenous piggyback diclofenac sodium 1 % topical gel 2 g topical QID PRN PRN #100 grams 09/09/22 10/09/22 folic acid 1 mg tablet 1 mg PO DAILY #30 tabs 09/09/22 10/09/22 insulin aspart U-100 100 unit/mL 1 sliding scale dose subcut 09/09/22 10/09/22 (3 mL) subcutaneous pen (Novolog USEASDIRECTD #15 mL FlexPen U-100 Insulin aspart) lancets 30 gauge #200 ea 09/09/22 10/09/22 magnesium chloride 64 mg 128 mg PO BID #120 tabs 09/09/22 10/09/22 (magnesium chloride) tablet,delayed release (Mag 64) pantoprazole 20 mg tablet,delayed 20 mg PO DAILY@0730 #30 tabs 09/09/22 10/09/22 release pen needle, diabetic 31 gauge x #200 ea 09/09/22 10/09/22/16 (Sure-Fine Pen [facility]) spironolactone 100 mg tablet 100 mg PO DAILY #30 tabs 09/09/22 10/09/22 torsemide 20 mg tablet 20 mg PO DAILY #30 tabs 09/09/22 10/09/22 insulin detemir U-100 100 unit/mL 15 unit subcut DAILY 09/18/22 10/09/22 (3 mL) subcutaneous pen (Levemir FlexPen) Previous Rx's Medication Instructions Recorded blood sugar diagnostic (Blood #200 09/09/22 Glucose Test strips) 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 meter #1 09/09/22 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 meter,continuous #1 09/09/22 (Dexcom G7 Remote Computer Terminal Operator) 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 sensor (Dexcom G7 #3 09/09/22 Sensor device) cefazolin 2 gram/50 mL in dextrose 2 g (50 mL) IV Q8H #0 09/09/22 (iso-osmotic) intravenous piggyback diclofenac sodium 1 % topical gel 2 g topical QID PRN PRN #100 grams 09/09/22 folic acid 1 mg tablet 1 mg PO DAILY #30 tabs 09/09/22 insulin aspart U-100 100 unit/mL 1 sliding scale dose subcut 09/09/22 (3 mL) subcutaneous pen (Novolog USEASDIRECTD #15 mL FlexPen U-100 Insulin aspart) lancets 30 gauge #200 ea 09/09/22 magnesium chloride 64 mg 128 mg PO BID #120 tabs 09/09/22 (magnesium chloride) tablet,delayed release (Mag 64) pantoprazole 20 mg tablet,delayed 20 mg PO DAILY@0730 #30 tabs 09/09/22 release pen needle, diabetic 31 gauge x #200 ea 09/09/22 5/16 (Sure-Fine Pen [facility]) spironolactone 100 mg tablet 100 mg PO DAILY #30 tabs 09/09/22 torsemide 20 mg tablet 20 mg PO DAILY #30 tabs 09/09/22 Allergies Allergy/AdvReac Type Severity Reaction Status Date / Time codeine AdvReac Unknown unable to Verified 10/09/22 20:50 take related to colon removal ibuprofen AdvReac Unknown unable to Verified 10/09/22 20:50 take related to colon removal General WILL: 3 Review of Systems Narrative: per HPI PFSH All Active Problems Hand cramps (Acute) Hypocalcemia (Acute) Hypomagnesuria (Acute) Thrombosis of right cephalic vein (Acute) Folate deficiency (Acute) Sepsis (Acute) IDDM (insulin dependent diabetes mellitus) (Chronic) Obesity (BMI 30.0-34.9) (Chronic) Heme + stool (Acute) Hypoglycemia (Acute) Hypokalemia (Acute) Hypomagnesemia (Acute) Pleuritic chest pain (Acute) Staphylococcus aureus bacteremia (Acute) Hypotension (Acute) Thrombocytopenia (Chronic) Leukocytosis (Acute) Coagulopathy (Acute) Hypoproteinemia (Acute) Hypocalcemia (Acute) Gram-positive cocci bacteremia (Acute 08/23/22) Septic arthritis of knee, left (Acute ~08/09/22) S/P washout/debridement: 08/24/2022 Cirrhosis of liver (Chronic) Hyperbilirubinemia (Acute) Acute dehydration (Acute) ADHD (Acute) Crohn's disease in remission (Acute) Anemia of chronic disease (Acute) Acute exacerbation of chronic low back pain (Acute) Back pain (Acute) Stoma bleed (Acute) Chest pain (Acute) H/O malignant neoplasm of colon (Acute) Anemia, blood loss (Acute) GI bleed (Chronic) Medical History Adjustment disorder Chronic low back pain Colon cancer Depression with anxiety Diabetes mellitus type 2 in obese GERD (gastroesophageal reflux disease) Hepatorenal syndrome Hyposmia HADLEY (obstructive sleep apnea) PTSD (post-traumatic stress disorder) Vitamin B12 deficiency Vitamin D deficiency Surgical History H/O ileostomy History of endometrial ablation S/P colectomy S/P D&C (status post dilation and curettage) S/P LEEP Family History Mother , age 49 due to heart disease Diabetes Heart disease Hypertension Father Heart disease Social History Smoking/Tobacco Use Status: Never Smoking risk assessment performed?: Yes Alcohol Intake: never Drug use: Never Substance use type: does not use Household members: family Housing: house Number of Children: 5 number of grandchildren: 15 Pets and animals: Yes Pets and animals: dog(s) What type of physical activity do you participate in: none Seatbelt use: always Do you feel safe at home: Yes Do you feel safe in your relationship?: Yes Exam Narrative Exam Narrative: Const: WDWN female in NAD. HEENT: NC/AT. Normal facial exam. Eyes: Normal conjunctiva and sclera. Neck: Supple. Trachea midline. Lungs: Normal respiratory effort. GI: Soft. NT/ND. Stoma in LLQ, bleeding from skin/mucosa margin at 6 and 8 o'clock position. Neuro: A+O x 3. Normal speech, mentation, gait. Cranial nerves II - XII grossly intact. No gross motor or sensory deficit. Procedures Other Description: Patient with bleeding from her left lower quadrant stoma. LET and pressure applied prior to silver nitrate cautery. There was some oozing status post cautery and placed gauze with TXA and held pressure. Bleeding has resolved.
[2022-10-09] MEDS: Lidocaine/Epinephri/Tetracaine Topical Gel 3 ML (21:03)
[2022-10-09] MEDS: Silver Nitrate Stick 1 EACH ×2 (21:07→21:24)
[2022-10-09] MEDS: Tranexamic Acid 1,000 MG/10 ML VIAL 1000 MG (21:24)
== END 2022-10-09 22:05 | disposition home or self-care (01) ==
PROVIDERS: Emergency Provider Emergency Medicine; PCP Family Medicine
DX: K94.11 Enterostomy hemorrhage (principal)
CPT/HCPCS: 99282

== ENCOUNTER 2022-10-12 18:11 | Outpatient (REF) | payer MEDICARE, SELFPAY ==
[2022-10-12 17:52] LABS: Abs Immature Grans 0.03 10^3/uL (0.0-0.06); Absolute Basophil Count 0.02 10^3/uL (0.0-0.2); Absolute Eosinophil Count 0.05 10^3/uL (0.0-0.7); Absolute Lymphocyte Count 0.71 10^3/uL (1.2-3.4); Absolute Monocyte Count 0.52 10^3/uL (0.1-0.8); Absolute Neutrophil Count 2.42 10^3/uL (1.2-6.7); Basophils % 0.5; Eosinophils % 1.3; HCT 28.1 % (36.0-46.0); HGB 9.4 g/dL (11.2-15.7); Immature Grans % 0.8; Lymphocytes % 18.9; MCH 36.4 pg (27.0-33.0); MCHC 33.5 % (32.0-36.0); MCV 109 fL (80-95); Monocytes % 13.9; Neutrophils % 64.6; RBC 2.58 10^6/uL (3.93-5.22); RDW 13.4 % (11.7-14.6); RDW-SD 54.2 fL; WBC 3.75 10^3/uL (4.4-10.8)
[2022-10-12 18:06] LABS: ALT 8 U/L (14-59); AST 40 U/L (15-37); Albumin 2.2 g/dL (3.4-5.0); Alkaline Phosphatase 100 U/L (46-116); Anion Gap 12.4 mmol/L (3-11); BUN 30 mg/dL (7-18); Bilirubin, Total 6.1 mg/dL (0.2-1.0); C-Reactive Protein 0.28 mg/dL (0.0-0.3); CO2 22.6 mmol/L (21.0-32.0); CREATININE 1.4 mg/dL (0.55-1.02); Calcium 8.6 mg/dL (8.5-10.1); Chloride 97 mmol/L (98-107); Estimated GFR 44.16 (mL/min/1.73m2); Glucose 270 mg/dL (74-106); Magnesium 1.5 mg/dL (1.8-2.4); Potassium 4.2 mmol/L (3.5-5.1); Sodium 132 mmol/L (136-145); Total Protein 6.2 g/dL (6.4-8.2)
[2022-10-12 18:59] LABS: Platelet Count 62 10^3/uL (130-400)
[2022-10-12 19:00] LABS: Diff Comment RBC Morph Reviewed; Macrocytosis 1+
== END 2022-10-12 18:12 | disposition home or self-care (01) ==
LOC: LBN 18:11
PROVIDERS: PCP Family Medicine; Visit Provider Internal Medicine
DX: R78.81 Bacteremia (principal); D50.9 Iron deficiency anemia, unspecified; R79.82 Elevated C-reactive protein (CRP); Z79.2 Long term (current) use of antibiotics; E83.42 Hypomagnesemia; E11.9 Type 2 diabetes mellitus without complications
CPT/HCPCS: 80053; 83735; 85025; 86140

== ENCOUNTER 2022-10-30 15:31 | Outpatient (REF) | payer MEDICARE, SELFPAY ==
[2022-10-30 16:56] LABS: Anion Gap 11.5 mmol/L (3-11); BUN 25 mg/dL (7-18); CO2 20.5 mmol/L (21.0-32.0); CREATININE 1.1 mg/dL (0.55-1.02); Calcium 8.2 mg/dL (8.5-10.1); Chloride 100 mmol/L (98-107); Estimated GFR 58.97 (mL/min/1.73m2); Glucose 221 mg/dL (74-106); Potassium 4.2 mmol/L (3.5-5.1); Sodium 132 mmol/L (136-145)
== END 2022-10-30 15:32 | disposition home or self-care (01) ==
LOC: NCHCN 15:31
PROVIDERS: PCP Family Medicine; Visit Provider Family Medicine
DX: E11.9 Type 2 diabetes mellitus without complications (principal)
CPT/HCPCS: 80048

== ENCOUNTER 2022-11-16 16:05 | Outpatient (REF) | payer MEDICARE, SELFPAY ==
[2022-11-16 20:17] LABS: INR 1.3 (0.9-1.1)
[2022-11-16 20:52] LABS: ALT 16 U/L (14-59); AST 43 U/L (15-37); Albumin 2.7 g/dL (3.4-5.0); Alkaline Phosphatase 127 U/L (46-116); Anion Gap 10.8 mmol/L (3-11); BUN 22 mg/dL (7-18); Bilirubin, Total 7.8 mg/dL (0.2-1.0); C-Reactive Protein 0.37 mg/dL (0.0-0.3); CO2 24.2 mmol/L (21.0-32.0); CREATININE 1.3 mg/dL (0.55-1.02); Calcium 9.2 mg/dL (8.5-10.1); Chloride 100 mmol/L (98-107); Estimated GFR 48.26 (mL/min/1.73m2); Glucose 108 mg/dL (74-106); Magnesium 1.8 mg/dL (1.8-2.4); Potassium 3.7 mmol/L (3.5-5.1); Sodium 135 mmol/L (136-145); Total Protein 6.2 g/dL (6.4-8.2)
[2022-11-16 21:57] LABS: COMMENT (LAB VIEW ONLY) 13.72 mg/dL
[2022-11-18 09:39] LABS: AFP Tumor Marker 8.2 ng/mL (<8.1)
== END 2022-11-16 16:06 | disposition home or self-care (01) ==
LOC: NCHCN 16:05
PROVIDERS: PCP Family Medicine; Visit Provider Family Medicine
DX: E11.9 Type 2 diabetes mellitus without complications (principal); K74.60 Unspecified cirrhosis of liver; D50.9 Iron deficiency anemia, unspecified; R79.1 Abnormal coagulation profile; R79.82 Elevated C-reactive protein (CRP); R74.8 Abnormal levels of other serum enzymes
CPT/HCPCS: 80053; 82043; 82105; 82570; 83735; 85610; 86140

== ENCOUNTER 2022-11-18 15:09 | Outpatient (REF) | payer MEDICARE, SELFPAY ==
[2022-11-18 15:57] LABS: HCT 28.2 % (36.0-46.0); HGB 9.4 g/dL (11.2-15.7); MCH 35.6 pg (27.0-33.0); MCHC 33.3 % (32.0-36.0); MPV 10.6 fL (8.0-11.0); RBC 2.64 10^6/uL (3.93-5.22); RDW 14.5 % (11.7-14.6); WBC 3.96 10^3/uL (4.4-10.8)
[2022-11-18 17:25] LABS: MCV 107 fL (80-95)
[2022-11-18 17:26] LABS: Platelet Count 90 10^3/uL (130-400)
== END 2022-11-18 15:10 | disposition home or self-care (01) ==
LOC: NCHCN 15:09
PROVIDERS: PCP Family Medicine; Visit Provider Family Medicine
DX: E11.9 Type 2 diabetes mellitus without complications (principal); D50.9 Iron deficiency anemia, unspecified; K74.69 Other cirrhosis of liver
CPT/HCPCS: 85027; 83036

== ENCOUNTER → 2022-12-21 02:30 | Outpatient (CLI) | payer MEDICARE, SELFPAY ==
--- NOTE | 2022-12-21 | DI.MAMMO_ITS ---
Exam(s) MAMMO SCREENING EXAM: MAMMO SCREENING 2016 through 2021 CLINICAL HISTORY: SCREENING FOR BREAST CANCER Z12.39 TECHNIQUE: Mammograms were interpreted according to the usual protocol including computer analysis w [employer] CAD system, tomosynthesis and C-view imaging. COMPARISON: 2016 through 2021 FINDINGS: The breasts are composed of mainly fatty density , Breast Density category A. No suspicious masses or suspicious microcalcifications are seen. No skin thickening or abnormal axillary lymph nodes are seen. There has been no significant change from prior exams. IMPRESSION: BI-RADS Category 1, Negative mammogram Yearly screening mammography is recommended. Breast Density - Category A, fatty density. A negative radiographic report should not delay biopsy if a dominant or clinically suspicious mass is present. Up to ten percent of cancers are not identified on mammography. A negative report may reinforce clinical impression. Adenosis and dense breasts may obscure an underlying neoplasm. False positive reports average 6 to 10%. Patient will receive a letter notifying them of these results.
== END ==
PROVIDERS: PCP Family Medicine; Visit Provider Family Medicine
DX: Z12.31 Encounter for screening mammogram for malignant neoplasm of breast (principal)
CPT/HCPCS: 77063; 77067

== ENCOUNTER 2022-12-31 18:07 | Emergency (ER) | payer MEDICARE, SELFPAY ==
[2022-12-31] VITALS (12 sets, daily range): BP systolic 98–176; BP diastolic 24–67; PULSE 102–133; RESP 12–22; TEMP 36.8; O2SAT 96–99
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
[2022-12-31 19:46] LABS: Abs Immature Grans 0.11 10^3/uL (0.0-0.06); Absolute Basophil Count 0.03 10^3/uL (0.0-0.2); Absolute Eosinophil Count 0.03 10^3/uL (0.0-0.7); Absolute Lymphocyte Count 0.42 10^3/uL (1.2-3.4); Absolute Monocyte Count 0.89 10^3/uL (0.1-0.8); Absolute Neutrophil Count 6.26 10^3/uL (1.2-6.7); Basophils % 0.4; Eosinophils % 0.4; HCT 29.2 % (36.0-46.0); Immature Grans % 1.4; Lymphocytes % 5.4; MCH 35.3 pg (27.0-33.0); MCHC 34.2 % (32.0-36.0); MCV 103 fL (80-95); MPV 9.7 fL (8.0-11.0); Monocytes % 11.5; Neutrophils % 80.9; Platelet Count 105 10^3/uL (130-400); RBC 2.83 10^6/uL (3.93-5.22); RDW 14.5 % (11.7-14.6); RDW-SD 54.8 fL; WBC 7.74 10^3/uL (4.4-10.8)
[2022-12-31 19:49] LABS: ALT 18 U/L (14-59); AST 52 U/L (15-37); Albumin 2.7 g/dL (3.4-5.0); Alkaline Phosphatase 128 U/L (46-116); BUN 19 mg/dL (7-18); Bilirubin, Total 11.1 mg/dL (0.2-1.0); CREATININE 1.7 mg/dL (0.55-1.02); Calcium 9.4 mg/dL (8.5-10.1); Chloride 100 mmol/L (98-107); Estimated GFR 34.76 (mL/min/1.73m2); Glucose 147 mg/dL (74-106); Magnesium 1.8 mg/dL (1.8-2.4); Potassium 4.2 mmol/L (3.5-5.1); Sodium 134 mmol/L (136-145); Total Protein 6.6 g/dL (6.4-8.2); Troponin I < 50 ng/L (<or=60)
[2022-12-31 19:57] LABS: Amylase 85 U/L (25-115); Lipase 56 U/L (16-77)
[2022-12-31 19:57] LABS: INR 1.5 (0.9-1.1); PTT Activated 25.9 sec (23.6-32.8); Prothrombin Time 14.4 sec (9.1-11.1)
[2022-12-31 19:58] LABS: ETHANOL BLOOD < 3.0 mg/dL (<10)
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
[2022-12-31] MEDS: Normal Saline - Diluent 50 ML VIAL IJ (20:29)
[2022-12-31] MEDS: Omnipaque 350 MG/ML 100 ML BTL IJ (20:30)
[2022-12-31] MEDS: Normal Saline Flush 10 ML SYR IVP (20:44)
[2022-12-31 20:59] LABS: Bilirubin Negative (Negative); Blood Negative (Negative); Clarity Clear (Clear); Glucose Negative (Negative); Ketones Negative (Negative); Leukocyte Esterase Negative (Negative); Nitrite Negative (Negative); Specific Gravity 1.015 (1.005-1.025); Urobilinogen 0.2 mg/dL (Up to 0.2); pH 5.5 (5-8)
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
[2022-12-31] MEDS: Ondansetron 4 MG/2 ML VIAL IVP (21:12)
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
[2022-12-31] MEDS: Ketorolac 15 MG/ML VIAL IVP (22:21)
[2022-12-31] MEDS: Ondansetron O.D.T. 4 MG TABEF, 3 TABS/BTL PO (22:21)
[2022-12-31] MEDS: Acetaminophen 325 MG TAB 650 MG PO (22:29)
== END 2022-12-31 22:31 | disposition home or self-care (01) ==
PROVIDERS: Emergency Provider Student in an Organized Health Care Education/Training Program; PCP Family Medicine
DX: M25.511 Pain in right shoulder (principal); M25.521 Pain in right elbow; M54.2 Cervicalgia; M47.812 Spondylosis without myelopathy or radiculopathy, cervical region; M47.816 Spondylosis without myelopathy or radiculopathy, lumbar region; K72.90 Hepatic failure, unspecified without coma; E11.9 Type 2 diabetes mellitus without complications; Z79.4 Long term (current) use of insulin; Z79.899 Other long term (current) drug therapy; Z85.038 Personal history of other malignant neoplasm of large intestine; Z93.3 Colostomy status; V43.62XA Car passenger injured in collision with other type car in traffic accident, initial encounter
CPT/HCPCS: 36415; 74177; 80053; 83690; 86850; 86900; 86901; 96374; 96375; 99285; 70450; 71045; 71260; 72125; 73030; 73080; 80320; 81003; 82150; 83735; 84484; 85025; 85610; 85730; 99284; J1885; J2405; J3490

== ENCOUNTER → 2023-01-05 00:05 | Outpatient (CLI) | payer MEDICARE, SELFPAY ==
[2023-01-05] MEDS: Normal Saline - Diluent 50 ML VIAL 25 ML IJ (09:26)
[2023-01-05] MEDS: Gadoterate meglumine 20 ML VIAL 17 ML IVP (09:27)
--- NOTE | 2023-01-05 10:20 | DI.MRI_ITS ---
Exam(s) MR ABDOMEN WO/W EXAM: MR ABDOMEN WO/W CLINICAL HISTORY: CIRRHOSIS OF LIVER WITH ASCITES, K74.60, R18.8 TECHNIQUE: Multiplanar multisequence MRI of the Abdomen was performed. CONTRAST MATERIAL: IV Contrast: 17 mL of Dotarem contrast administered. COMPARISON: MR MRI - BRAIN W/WO CONTRAST from 07/05/[address] CHEST/ABD/PEL W from 12/31/[address] THORACIC LUMBAR SPINE REC from 12/31/2022 FINDINGS: Liver: Area of signal void corresponding to TIPS. Shrunken appearance. Mildly nodular surface. No regenerative nodules. Pancreas: No suspicious mass. Gallbladder and Bile Ducts: Unremarkable. Adrenals: Unremarkable. Kidneys: Unremarkable. Spleen: Enlarged at 15 cm in length.. No focal lesions. Aorta: Unremarkable. Soft Tissues: Unremarkable. Bone: Unremarkable. Lymph Nodes: Unremarkable. No ascites. IMPRESSION: Cirrhotic appearing liver with TIPS in place. No evidence of a mass. No ascites. DATA REPOSITORY:
== END ==
PROVIDERS: PCP Family Medicine; Visit Provider Internal Medicine
DX: K74.60 Unspecified cirrhosis of liver (principal); R18.8 Other ascites
CPT/HCPCS: 36415; 74183; 80048; 80076; 83010; 83615; 85025; 85610

== ENCOUNTER 2023-01-05 01:27 | Outpatient (CLI) | payer MEDICARE, SELFPAY ==
[2023-01-05 09:02] LABS: Abs Immature Grans 0.04 10^3/uL (0.0-0.06); Absolute Basophil Count 0.03 10^3/uL (0.0-0.2); Absolute Eosinophil Count 0.04 10^3/uL (0.0-0.7); Absolute Lymphocyte Count 0.98 10^3/uL (1.2-3.4); Absolute Monocyte Count 0.57 10^3/uL (0.1-0.8); Absolute Neutrophil Count 3.41 10^3/uL (1.2-6.7); Basophils % 0.6; Eosinophils % 0.8; HCT 31.8 % (36.0-46.0); HGB 10.8 g/dL (11.2-15.7); Immature Grans % 0.8; Lymphocytes % 19.3; MCV 106 fL (80-95); MPV 10.1 fL (8.0-11.0); Monocytes % 11.2; Neutrophils % 67.3; RDW 15.1 % (11.7-14.6); RDW-SD 58.7 fL; WBC 5.07 10^3/uL (4.4-10.8)
[2023-01-05 09:22] LABS: Platelet Count 96 10^3/uL (130-400)
[2023-01-05 09:23] LABS: Diff Comment Diff Reviewed; RBC Morphology Normal
[2023-01-05 09:39] LABS: INR 1.4 (0.9-1.1); Prothrombin Time 13.5 sec (9.1-11.1)
[2023-01-05 09:40] LABS: ALT 19 U/L (14-59); AST 43 U/L (15-37); Albumin 2.7 g/dL (3.4-5.0); Alkaline Phosphatase 148 U/L (46-116); Anion Gap 8.5 mmol/L (3-11); BUN 27 mg/dL (7-18); Bilirubin, Direct 4.2 mg/dL (0.0-0.2); Bilirubin, Total 8.3 mg/dL (0.2-1.0); CO2 25.5 mmol/L (21.0-32.0); CREATININE 1.3 mg/dL (0.55-1.02); Calcium 9.2 mg/dL (8.5-10.1); Chloride 104 mmol/L (98-107); Estimated GFR 47.96 (mL/min/1.73m2); Glucose 165 mg/dL (74-106); LDH 156 U/L (81-234); Sodium 138 mmol/L (136-145); Total Protein 6.5 g/dL (6.4-8.2)
[2023-01-06 09:53] LABS: Haptoglobin <7 mg/dL (32-197)
== END 2023-01-05 01:28 | disposition home or self-care (01) ==
LOC: LBO 01:27
PROVIDERS: PCP Family Medicine; Visit Provider Internal Medicine
DX: K74.60 Unspecified cirrhosis of liver (principal); R18.8 Other ascites
CPT/HCPCS: 36415; 80048; 80076; 83010; 83615; 85025; 85610

== ENCOUNTER 2023-03-01 04:21 | Outpatient (CLI) | payer MEDICARE, SELFPAY ==
[2023-03-01 14:37] LABS: Abs Immature Grans 0.05 10^3/uL (0.0-0.06); Absolute Basophil Count 0.02 10^3/uL (0.0-0.2); Absolute Eosinophil Count 0.02 10^3/uL (0.0-0.7); Absolute Lymphocyte Count 0.68 10^3/uL (1.2-3.4); Absolute Monocyte Count 0.48 10^3/uL (0.1-0.8); Absolute Neutrophil Count 2.92 10^3/uL (1.2-6.7); Basophils % 0.5; Eosinophils % 0.5; HGB 9.4 g/dL (11.2-15.7); Immature Grans % 1.2; Lymphocytes % 16.3; MCH 34.9 pg (27.0-33.0); MCHC 32.4 % (32.0-36.0); MPV 10.1 fL (8.0-11.0); Monocytes % 11.5; RBC 2.69 10^6/uL (3.93-5.22); RDW 14.8 % (11.7-14.6); RDW-SD 58.1 fL; WBC 4.17 10^3/uL (4.4-10.8)
[2023-03-01 14:45] LABS: INR 1.4 (0.9-1.1)
[2023-03-01 14:46] LABS: MCV 108 fL (80-95)
[2023-03-01 14:47] LABS: Diff Comment Diff Reviewed; Macrocytosis 2+; Platelet Count 87 10^3/uL (130-400)
[2023-03-01 14:50] LABS: ALT 21 U/L (14-59); AST 42 U/L (15-37); Albumin 2.5 g/dL (3.4-5.0); Alkaline Phosphatase 157 U/L (46-116); Anion Gap 10.6 mmol/L (3-11); BUN 14 mg/dL (7-18); CO2 17.4 mmol/L (21.0-32.0); Calcium 8.5 mg/dL (8.5-10.1); Chloride 108 mmol/L (98-107); Estimated GFR 65.71 (mL/min/1.73m2); Glucose 146 mg/dL (74-106); Potassium 4.7 mmol/L (3.5-5.1); Sodium 136 mmol/L (136-145); Total Protein 6.1 g/dL (6.4-8.2)
== END 2023-03-01 04:22 | disposition home or self-care (01) ==
LOC: LBO 04:22
PROVIDERS: PCP Family Medicine; Visit Provider Internal Medicine Gastroenterology
DX: K74.60 Unspecified cirrhosis of liver (principal)
CPT/HCPCS: 36415; 80053; 85025; 85610

== ENCOUNTER 2023-03-13 22:35 | Emergency (ER) | payer MEDICARE, SELFPAY ==
[2023-03-13] VITALS (8 sets, daily range): BP systolic 144; BP diastolic 64; PULSE 77; RESP 20; TEMP 37; O2SAT 97–99
--- NOTE | 2023-03-13 22:45 | RT.EKG_ITS ---
APPROVED REPORT Exam: Resting ECG Reason for Exam: chest pain Patient Location: E HR:69 bpm ECG Measurements Heart Rate 69 AXIS MT 160 P 74 QRSd 88 QRS 17 QT 486 T -25 QTc 520 Conclusion Sinus rhythm...normal P axis, V-rate 60- 99 PHysician: no stemi
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
[2023-03-13 23:08] LABS: BE (Venous) -8 mmol/L (-2-3); HCO3 (Venous) 18 mmol/L (23-28); O2 Sat (Venous) 84 %; TCO2 (Venous) 18 mmol/L (24-29); pCO2 (Venous) 35 mmHg (41-51); pH (Venous) 7.33 (7.31-7.41); pO2 (Venous) 49 mmHg
[2023-03-13 23:11] LABS: Abs Immature Grans 0.04 10^3/uL (0.0-0.06); Absolute Basophil Count 0.03 10^3/uL (0.0-0.2); Absolute Lymphocyte Count 0.81 10^3/uL (1.2-3.4); Absolute Monocyte Count 0.55 10^3/uL (0.1-0.8); Absolute Neutrophil Count 3.09 10^3/uL (1.2-6.7); Basophils % 0.6; Eosinophils % 2.2; HCT 29.5 % (36.0-46.0); HGB 9.5 g/dL (11.2-15.7); Immature Grans % 0.9; Lymphocytes % 17.5; MCH 34.7 pg (27.0-33.0); MCHC 32.2 % (32.0-36.0); MCV 108 fL (80-95); MPV 9.8 fL (8.0-11.0); Monocytes % 11.9; Neutrophils % 66.9; RBC 2.74 10^6/uL (3.93-5.22); RDW 15.4 % (11.7-14.6); RDW-SD 60.7 fL; WBC 4.62 10^3/uL (4.4-10.8)
[2023-03-13 23:21] LABS: Platelet Count 93 10^3/uL (130-400)
[2023-03-13 23:22] LABS: Macrocytosis 2+
[2023-03-13 23:23] LABS: Magnesium 2.1 mg/dL (1.8-2.4)
[2023-03-13 23:25] LABS: INR 1.6 (0.9-1.1); PTT Activated 29.4 sec (23.6-32.8); Prothrombin Time 15.8 sec (9.1-11.1)
[2023-03-13 23:29] LABS: ALT 19 U/L (14-59); AST 43 U/L (15-37); Albumin 2.3 g/dL (3.4-5.0); Alkaline Phosphatase 193 U/L (46-116); Anion Gap 11.4 mmol/L (3-11); BUN 9 mg/dL (7-18); Bilirubin, Total 7.2 mg/dL (0.2-1.0); CO2 18.6 mmol/L (21.0-32.0); Calcium 8.1 mg/dL (8.5-10.1); Chloride 108 mmol/L (98-107); Estimated GFR 65.71 (mL/min/1.73m2); Glucose 217 mg/dL (74-106); Potassium 3.8 mmol/L (3.5-5.1); Sodium 138 mmol/L (136-145); Total Protein 5.8 g/dL (6.4-8.2); Troponin I < 50 ng/L (< or =60)
[2023-03-13] MEDS: Normal Saline 500 ML IV (23:38)
[2023-03-13 23:39] LABS: D-Dimer 892 ng/mlFEU (<500)
[2023-03-13 23:54] LABS: COVID-19 PCR Negative (Negative); Influenza A PCR Negative (Negative); Influenza B PCR Negative (Negative); RSV PCR Negative (Negative)
[2023-03-14] VITALS (10 sets, daily range): BP systolic 113–131; BP diastolic 47–50; PULSE 77–79; RESP 18; O2SAT 93–99
[2023-03-14] LABS: Source Nasopharynx
--- NOTE | 2023-03-14 00:15 | DI.CT_ITS ---
Exam(s) CT CHEST PE CTA EXAM: CT CHEST PE CTA CLINICAL HISTORY: left chest pain, hx of PE's. TECHNIQUE: Imaging Protocol: Axial CT angiography was performed with multi-slice acquisition and mu lti-planar reconstructions as well as axial, coronal and sagittal MIP reconstructions. CONTRAST MATERIAL: Intravenous: Omnipaque 350 Contrast volume:100 ml COMPARISON: CT CT CHEST/ABD/PEL W from 12/31/[address] THORACIC LUMBAR SPINE REC from 12/31/2022 CR,XR XR PORTABLE CHEST AP from 12/31/2022 FINDINGS: Exam is limited by motion artifact. Pulmonary Arteries: Evaluation somewhat limited due to motion artifact. No evidence of filling defec t to suggest pulmonary emboli. Tracheobronchial tree: No mucous plugging. Mediastinum and Shanice: No dominant adenopathy or fluid collection. Pulmonary parenchyma: Not well evaluated due to motion. Left basilar infiltrate and compressive atel ectasis at left lower lobe. Small patchy infiltrate also seen in left upper lobe. Pleura: Moderate left and small right pleural effusion. Heart: The heart is not dilated. No coronary artery calcifications are seen. Aorta: Thoracic aorta non-dilated. No dissection. Upper abdomen: Cirrhotic liver. Tips. Small amount of ascites around liver. Bones: Unremarkable for age. Tubes, Catheters, and Lines: None Soft tissues: Small soft tissue edema and skin thickening in the left breast. Clinical correlation r ecommended. IMPRESSION: No evidence of pulmonary embolism. Moderate left pleural effusion and adjacent compressive atelectasis. Infiltrates left lower left upp er lobes. Small right pleural effusion. Cirrhotic liver. Small amount of ascites. Significant soft tissue edema of the left breast. Clinical correlation recommended. RADIATION DOSE DELIVERED: Total DLP DATA REPOSITORY: All CT scans at this facility are submitted to the National Radiology Data Registry (NRDR) Dose Index Registry (DIR) with the [employer] (ACR). RADIATION OPTIMIZATION: All CT scans at this facility use at least one of these dose optimization te chniques: automated exposure control; mA and/or kV adjustment per patient size (includes targeted exa ms where dose is matched to clinical indication); or iterative reconstruction.
[2023-03-14] MEDS: Omnipaque 350 MG/ML 100 ML BTL IJ (00:44)
[2023-03-14] MEDS: Normal Saline - Diluent 50 ML VIAL IJ (00:44)
--- NOTE | 2023-03-14 01:16 | DI.VRAD_ITS ---
PROCEDURE INFORMATION: Exam: CTA Chest With Contrast Exam date and time: 03/14/2023 12:53 AM Age: 57 years old Clinical indication: Left-sided; Patient HX: Left chest pain, HX of pes TECHNIQUE: Imaging protocol: Computed tomographic angiography of the chest with contrast. Exam focused on the arteries. 3D rendering (Not supervised by radiologist): MIP and/or 3D reconstructed images were created by the technologist. Contrast material: OMNIPAQUE 350; Contrast volume: 100 ml; Contrast route: INTRAVENOUS (IV); COMPARISON: CT CHEST PE CTA 08/28/2022 8:36 PM FINDINGS: Limitations: Motion artifact degrades image quality. Pulmonary arteries: No definite pulmonary embolus identified, within the limitations noted above. Aorta: No thoracic aortic aneurysm seen. Lungs: Consolidation in the left lower lobe. Patchy ground-glass opacity in the left upper lobe. Pleural spaces: Moderate left and small right pleural effusion. Heart: No pericardial effusion. Lymph nodes: No acute abnormality seen. Liver: Cirrhotic liver. Portosystemic shunt present. Gallbladder and bile ducts: Gallbladder wall appears prominent but is incompletely evaluated. Intraperitoneal space: Small amount of perihepatic fluid. Bones/joints: No acute pertinent abnormality seen. Soft tissues: Skin thickening and stranding involving the left breast tissue, incompletely imaged. IMPRESSION: 1. No definite pulmonary embolus identified, within the limitations noted above. 2. Bilateral pleural effusions. 3. Airspace opacities in the left lung suspicious for pneumonia. There is likely atelectasis in the left lower lobe. 4. Cirrhosis. 5. Gallbladder wall prominence, incompletely imaged and of indeterminate significance. Right upper quadrant ultrasound may be considered if cholecystitis is of clinical concern. 6. Skin thickening and stranding involving the left breast tissue, incompletely evaluated. Consider mastitis, neoplasm. 7. Additional findings as above. Dictated and Authenticated by: Fara Dominguez MD. Ordering:MARAL Diaz MD
[2023-03-14] MEDS: Amox. 875/Clav. 125, 2 TABS/BTL 1 TAB PO (02:07)
[2023-03-14] MEDS: Azithromycin 250 MG TAB 500 MG PO (02:07)
--- NOTE | 2023-03-14 04:40 | NUR.NOTE ---
Pt placed on care management referral list for Surgical for pleural effusion to be seen within 1-[address] iWnn
== END 2023-03-14 02:10 | disposition home or self-care (01) ==
PROVIDERS: Emergency Provider Student in an Organized Health Care Education/Training Program; PCP Family Medicine
DX: N61.0 Mastitis without abscess (principal); J90 Pleural effusion, not elsewhere classified; J18.9 Pneumonia, unspecified organism; K72.10 Chronic hepatic failure without coma; K74.60 Unspecified cirrhosis of liver; E11.9 Type 2 diabetes mellitus without complications; Z11.52 Encounter for screening for COVID-19; Z79.84 Long term (current) use of oral hypoglycemic drugs; Z79.4 Long term (current) use of insulin
CPT/HCPCS: 71275; 80053; 82805; 87637; 93005; 96360; 99285; 83735; 84484; 85025; 85379; 85610; 85730; 93010; 99284; J3490

== ENCOUNTER → 2023-03-18 02:47 | Outpatient (CLI) | payer MEDICARE, SELFPAY ==
--- NOTE | 2023-03-18 | DI.US_ITS ---
Exam(s) US BREAST LT COMPLETE EXAM: US BREAST LT COMPLETE CLINICAL HISTORY: LT BREAST PAIN, MASTODYNIA,N64.4,SWELLING TECHNIQUE: Ultrasound left breast performed using standard protocol. COMPARISON: CT CT CHEST PE CTA from 03/14/2023 FINDINGS: There is diffuse edema seen throughout the left breast. No cystic or solid breast mass is seen sonog raphically. There is diffuse skin thickening present. IMPRESSION: 1. Diffuse edematous changes seen in the skin and breast parenchyma of the left breast. The infectio us or inflammatory process should be considered. Neoplastic process including inflammatory carcinoma or lymphoma should be considered. Lymphatic or venous obstruction should also be considered. 2. No breast masses identified. 3. Given the findings a follow-up examination with either a mammogram and/or MRI of the breast is rec ommended. BI-RADS Category 0 - Assessment Incomplete: Need additional imaging evaluation Unexpected findings DATA REPOSITORY:
== END ==
PROVIDERS: PCP Family Medicine; Visit Provider Family Medicine
DX: N64.4 Mastodynia (principal); R92.8 Other abnormal and inconclusive findings on diagnostic imaging of breast
CPT/HCPCS: 76642

== ENCOUNTER → 2023-04-05 01:43 | Outpatient (CLI) | payer MEDICARE, SELFPAY ==
--- NOTE | 2023-04-05 14:00 | DI.RAD_ITS ---
Exam(s) XR CHEST 2V PA LATERAL EXAM: XR CHEST 2V PA LATERAL CLINICAL HISTORY: PNEUMONIA, J18.9, F/U PNEUMONIA/EFFUSION TECHNIQUE: 2D digital imaging was performed. COMPARISON: CR XR PORTABLE CHEST AP from 09/07/2022 CR,XR XR PORTABLE CHEST AP from 12/31/[address] CHEST PE CTA from 03/14/2023 FINDINGS: HEART: Mildly enlarged. Aorta: Not dilated. PULMONARY VASCULATURE: Normal. LUNGS: Clear. PLEURAL SPACE: No pleural effusion or pneumothorax. BONE:Unremarkable for age. Soft tissues: Tips noted right upper quadrant IMPRESSION: No acute abnormality. DATA REPOSITORY: RADIATION DOSE DELIVERED:
== END ==
PROVIDERS: PCP Family Medicine; Visit Provider Family Medicine
DX: J18.9 Pneumonia, unspecified organism (principal)
CPT/HCPCS: 71046

== ENCOUNTER 2023-04-14 12:27 | Outpatient (REF) | payer MEDICARE, SELFPAY ==
[2023-04-14 15:25] LABS: Abs Immature Grans 0.08 10^3/uL (0.0-0.06); Absolute Basophil Count 0.03 10^3/uL (0.0-0.2); Absolute Eosinophil Count 0.04 10^3/uL (0.0-0.7); Absolute Lymphocyte Count 0.71 10^3/uL (1.2-3.4); Absolute Monocyte Count 0.56 10^3/uL (0.1-0.8); Absolute Neutrophil Count 4.31 10^3/uL (1.2-6.7); Basophils % 0.5; Eosinophils % 0.7; HCT 29.7 % (36.0-46.0); HGB 10.1 g/dL (11.2-15.7); Immature Grans % 1.4; Lymphocytes % 12.4; MCH 34.5 pg (27.0-33.0); MCV 101 fL (80-95); Monocytes % 9.8; Neutrophils % 75.2; RBC 2.93 10^6/uL (3.93-5.22); RDW 14.2 % (11.7-14.6); RDW-SD 53.1 fL; WBC 5.73 10^3/uL (4.4-10.8)
[2023-04-14 15:46] LABS: Anion Gap 8.4 mmol/L (3-11); BUN 20 mg/dL (7-18); CO2 23.6 mmol/L (21.0-32.0); Calcium 8.2 mg/dL (8.5-10.1); Chloride 102 mmol/L (98-107); Estimated GFR 65.71 (mL/min/1.73m2); Glucose 190 mg/dL (74-106); Magnesium 1.8 mg/dL (1.8-2.4); Potassium 4.2 mmol/L (3.5-5.1); Sodium 134 mmol/L (136-145)
[2023-04-14 16:03] LABS: Diff Comment PLT Morph Reviewed; Platelet Count 89 10^3/uL (130-400); RBC Morphology Normal
== END 2023-04-14 12:28 | disposition home or self-care (01) ==
LOC: NCHCN 12:27
PROVIDERS: PCP Family Medicine; Referring Provider Family Medicine; Visit Provider Family Medicine
DX: E11.9 Type 2 diabetes mellitus without complications (principal); K74.60 Unspecified cirrhosis of liver
CPT/HCPCS: 80048; 83735; 85025

== ENCOUNTER 2023-06-21 13:57 | Outpatient (REF) | payer MEDICARE, SELFPAY ==
--- NOTE | 2023-06-21 10:40 | PAPFT_PTH ---
PATIENT: Janice Briones LOC: [facility]#:[id number] AGE/SX: 57/F ROOM: RE06/21/[address]: Deandra Hutchins : 1965 BED: DIS: 06/21/2023 SPEC #: [id number] RECD: 06/21/23 18:06 STATUS: WILFRID REAugusto #: [id number] MARIANO: 06/21/23 10:[address]: Deandra Hutchins DEPT: [facility] Cytology RECD BY: Florence Beckwith Tissues: 1 - CX/ENDOCX FOR PAP SMEARS Procedures: PAP THIN PREP/UVM Screening HPV DNA PROBE Comments: [id number]
== END 2023-06-21 13:58 | disposition home or self-care (01) ==
LOC: NCHCN 13:57
PROVIDERS: PCP Family Medicine; Visit Provider Family Medicine
DX: R22.9 Localized swelling, mass and lump, unspecified; Z11.51 Encounter for screening for human papillomavirus (HPV); Z01.411 Encounter for gynecological examination (general) (routine) with abnormal findings
CPT/HCPCS: 88142; 82985; 87624

== ENCOUNTER 2023-07-02 01:55 | Outpatient (CLI) | payer MEDICARE, SELFPAY ==
[2023-07-02 12:48] LABS: Abs Immature Grans 0.09 10^3/uL (0.0-0.06); Absolute Basophil Count 0.04 10^3/uL (0.0-0.2); Absolute Eosinophil Count 0.05 10^3/uL (0.0-0.7); Absolute Neutrophil Count 5.05 10^3/uL (1.2-6.7); Basophils % 0.5 %; Eosinophils % 0.7 %; HCT 32.3 % (36.0-46.0); Immature Grans % 1.2 %; MCH 36.8 pg (27.0-33.0); MCHC 34.1 % (32.0-36.0); MCV 108 fL (80-95); MPV 10.2 fL (8.0-11.0); Monocytes % 13.6 %; Platelet Count 102 10^3/uL (130-400); RBC 2.99 10^6/uL (3.93-5.22); RDW 14.3 % (11.7-14.6); RDW-SD 56.4 fL; WBC 7.33 10^3/uL (4.4-10.8)
[2023-07-02 13:11] LABS: INR 1.6 (0.9-1.1); Prothrombin Time 15.3 sec (9.1-11.1)
[2023-07-02 13:12] LABS: ALT 19 U/L (14-59); AST 40 U/L (15-37); Albumin 2.4 g/dL (3.4-5.0); Alkaline Phosphatase 279 U/L (46-116); BUN 23 mg/dL (7-18); Bilirubin, Total 13.1 mg/dL (0.2-1.0); CREATININE 1.2 mg/dL (0.55-1.02); Calcium 7.9 mg/dL (8.5-10.1); Chloride 101 mmol/L (98-107); Glucose 199 mg/dL (74-106); Potassium 4.1 mmol/L (3.5-5.1); Sodium 135 mmol/L (136-145); Total Protein 6.5 g/dL (6.4-8.2)
[2023-07-02 23:43] LABS: AFP Tumor Marker 9.5 ng/mL (<8.1)
== END 2023-07-02 01:56 | disposition home or self-care (01) ==
LOC: LBO 01:55
PROVIDERS: PCP Family Medicine; Visit Provider Internal Medicine Gastroenterology
DX: K74.60 Unspecified cirrhosis of liver (principal)
CPT/HCPCS: 36415; 80053; 86900; 86901; 82105; 85025; 85610

== ENCOUNTER 2023-07-06 05:10 | Outpatient (CLI) | payer MEDICARE, SELFPAY ==
[2023-07-06 15:31] LABS: Abs Immature Grans 0.06 10^3/uL (0.0-0.06); Absolute Basophil Count 0.03 10^3/uL (0.0-0.2); Absolute Eosinophil Count 0.04 10^3/uL (0.0-0.7); Absolute Lymphocyte Count 0.86 10^3/uL (1.2-3.4); Absolute Monocyte Count 0.82 10^3/uL (0.1-0.8); Absolute Neutrophil Count 4.92 10^3/uL (1.2-6.7); Basophils % 0.4 %; Eosinophils % 0.6 %; HCT 32.1 % (36.0-46.0); Immature Grans % 0.9 %; Lymphocytes % 12.8 %; MCH 36.5 pg (27.0-33.0); MCHC 34.3 % (32.0-36.0); MCV 107 fL (80-95); MPV 9.6 fL (8.0-11.0); Monocytes % 12.2 %; Neutrophils % 73.1 %; Platelet Count 108 10^3/uL (130-400); RBC 3.01 10^6/uL (3.93-5.22); RDW 14.3 % (11.7-14.6); RDW-SD 56.3 fL; WBC 6.73 10^3/uL (4.4-10.8)
[2023-07-06 15:39] LABS: INR 1.5 (0.9-1.1); Prothrombin Time 14.8 sec (9.1-11.1)
[2023-07-06 15:54] LABS: Diff Comment RBC Morph Reviewed; Macrocytosis 1+
[2023-07-06 16:45] LABS: ALT 22 U/L (14-59); AST 47 U/L (15-37); Albumin 2.6 g/dL (3.4-5.0); Alkaline Phosphatase 277 U/L (46-116); Anion Gap 12.9 mmol/L (3-11); BUN 22 mg/dL (7-18); Bilirubin, Total 12.7 mg/dL (0.2-1.0); CO2 23.1 mmol/L (21.0-32.0); CREATININE 1.1 mg/dL (0.55-1.02); Calcium 8.3 mg/dL (8.5-10.1); Chloride 99 mmol/L (98-107); Estimated GFR 58.61 (mL/min/1.73m2); Glucose 143 mg/dL (74-106); Potassium 3.6 mmol/L (3.5-5.1); Sodium 135 mmol/L (136-145); Total Protein 6.6 g/dL (6.4-8.2)
== END 2023-07-06 05:11 | disposition home or self-care (01) ==
LOC: LBO 05:10
PROVIDERS: PCP Family Medicine; Visit Provider Internal Medicine Gastroenterology
DX: K74.60 Unspecified cirrhosis of liver (principal)
CPT/HCPCS: 36415; 80053; 85025; 85610

== ENCOUNTER 2023-07-13 05:10 | Outpatient (CLI) | payer MEDICARE, SELFPAY ==
[2023-07-13 12:25] LABS: Abs Immature Grans 0.02 10^3/uL (0.0-0.06); Absolute Basophil Count 0.02 10^3/uL (0.0-0.2); Absolute Eosinophil Count 0.03 10^3/uL (0.0-0.7); Absolute Lymphocyte Count 0.56 10^3/uL (1.2-3.4); Basophils % 0.5 %; Eosinophils % 0.8 %; HCT 28.9 % (36.0-46.0); HGB 9.8 g/dL (11.2-15.7); Immature Grans % 0.5 %; Lymphocytes % 15.3 %; MCH 35.6 pg (27.0-33.0); MCHC 33.9 % (32.0-36.0); MCV 105 fL (80-95); MPV 10.9 fL (8.0-11.0); Monocytes % 13.7 %; Neutrophils % 69.2 %; RBC 2.75 10^6/uL (3.93-5.22); RDW 14.1 % (11.7-14.6); RDW-SD 54.5 fL; WBC 3.65 10^3/uL (4.4-10.8)
[2023-07-13 12:30] LABS: INR 1.9 (0.9-1.1); Prothrombin Time 18.2 sec (9.1-11.1)
[2023-07-13 12:32] LABS: Absolute Neutrophil Count 2.53 10^3/uL (1.2-6.7); Platelet Count 81 10^3/uL (130-400)
[2023-07-13 12:49] LABS: Diff Comment RBC Morph Reviewed; Macrocytosis 1+
[2023-07-13 12:58] LABS: ALT 90 U/L (14-59); AST 280 U/L (15-37); Albumin 2.3 g/dL (3.4-5.0); Alkaline Phosphatase 352 U/L (46-116); Anion Gap 6.6 mmol/L (3-11); BUN 17 mg/dL (7-18); Bilirubin, Total 10.2 mg/dL (0.2-1.0); CO2 25.4 mmol/L (21.0-32.0); CREATININE 1.2 mg/dL (0.55-1.02); Chloride 98 mmol/L (98-107); Glucose 198 mg/dL (74-106); Potassium 3.3 mmol/L (3.5-5.1); Sodium 130 mmol/L (136-145)
== END 2023-07-13 05:11 | disposition home or self-care (01) ==
LOC: LBO 05:10
PROVIDERS: PCP Family Medicine; Visit Provider Internal Medicine Gastroenterology
DX: K74.60 Unspecified cirrhosis of liver (principal)
CPT/HCPCS: 36415; 80053; 85025; 85610

== ENCOUNTER 2023-07-15 19:39 | Emergency (ER) | payer MEDICARE, MEDICAID, SELFPAY ==
[2023-07-15 19:45] VITALS: BP 133/31; PULSE 92; RESP 22; TEMP 36.8; O2SAT 99
--- NOTE | 2023-07-15 19:45 | RT.EKG_ITS ---
APPROVED REPORT Exam: Resting ECG Reason for Exam: dizzy Patient Location: E HR:93 bpm ECG Measurements Heart Rate 93 AXIS VT 156 P 67 QRSd 98 QRS -16 QT 380 T 36 QTc 474 Conclusion Sinus rhythm...normal P axis, V-rate 60- 99
--- NOTE | 2023-07-15 19:56 | ED.GENADUL_ITS ---
Discharge Plan Disposition Patient Disposition: Home Condition: Stable Discharge Details Clinical Impression: Nausea & vomiting, Dehydration Primary Care Provider: Deandra Hutchins ED Provider: Martin De Leon Home Meds and New Rx's Prescriptions: New ondansetron 4 mg tablet,disintegrating 4 mg PO Q8H PRN (Reason: nausea and vomiting) Qty: 30 0RF Continued levalbuterol tartrate [Xopenex HFA] 45 mcg/actuation HFA aerosol inhaler 2 inh inhalation .Q4-6HR metformin 500 mg tablet 1,000 mg PO BID acetaminophen [Mapap Extra Strength] 500 MG tablet 1 - 2 tab PO PRN PRN diclofenac sodium 1 % Gel 2 g topical QID PRN PRNQty: 100 0RF Rx Instructions: apply to Left knee cefazolin in dextrose (iso-os) 2 gram/50 mL Piggyback 2 g IV Q8H Qty: 0 0RF folic acid 1 mg Tablet 1 mg PO DAILY Qty: 30 0RF pantoprazole 20 mg Tablet,Delayed Release (Dr/Ec) 20 mg PO DAILY@0730 Qty: 30 0RF Mag 64 64 mg Tablet,Delayed Release (Dr/Ec) 128 mg PO BID Qty: 120 0RF torsemide 20 mg Tablet 20 mg PO DAILY Qty: 30 0RF spironolactone 100 mg tablet 100 mg PO DAILY Qty: 30 0RF (DME) Dexcom G7 Sensor Device See Rx Instructions .Route Qty: 3 0RF Rx Instructions: For blood sugar monitoring in am, before meals, and at bedtime (DME) pen needle, diabetic [Sure-Fine Pen Foster] 31 gauge x 5/16 needle See Rx Instructions .Route Qty: 200 1RF Rx Instructions: For lantus injections BID and aspart AC/HS (DME) Dexcom G7 [facility] Misc See Rx Instructions .Route Qty: 1 0RF Rx Instructions: For blood sugar monitoring AC/HS (DME) lancets 30 gauge misc See Rx Instructions .Route Qty: 200 0RF Rx Instructions: As directed (DME) 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 meter Kit See Rx Instructions .Route Qty: 1 0RF Rx Instructions: glucometer for blood sugar checks AC/HS (DME) Blood Glucose Test Strip See Rx Instructions .Route Qty: 200 0RF Rx Instructions: For blood sugar checks AC&HS insulin aspart U-100 [Novolog FlexPen U-100 Insulin] 100 unit/mL (3 mL) insulin pen 1 sliding scale dose subcut USEASDIRECTD MDD 100 units Qty: 15 0RF Rx Instructions: Take AC and HS. Mealtime: take 2 units per 10 grams of carbs consumed, up to 20 units per meal. In addition, take 2 units for every 50 points that blood sugar is over 150, up to 10 units AC/HS. Levemir FlexPen 100 unit/mL (3 mL) insulin pen 15 unit subcut DAILY Discharge Instructions Additional Instructions: Follow-up with your primary care provider within 1 to 2 weeks Use the ondansetron prior to taking the meds that are causing you to have an upset stomach. If you feel more ill, have high fevers or severe pain return to the emergency department for reevaluation HPI General Mode of arrival: ambulatory . Date/Time Provider Initiated Documentation: 07/15/23 19:45 . Limitations to Documentation: no limitations . Information obtained by: patient . History of Present Illness 57 year old F presents to the emergency department with the chief complaint of Nausea and vomiting, described as moderate, Patient started experiencing this week(s) (1) and it has been intermittent. No relieving factors improve symptom(s), Other factors that worsen symptoms (Taking her transplant medications) . Patient notes denies chest pain, fever/chills and shortness of breath. Patient did receive the following treatments prior to arrival, none Related Data Home Medications Medication Instructions Recorded Confirmed acetaminophen 500 mg tablet (Mapap 1 - 2 tab PO PRN PRN 08/19/15 12/31/22 Extra Strength) levalbuterol tartrate 45 2 inh inhalation .Q4-6HR 01/22/20 12/31/22 mcg/actuation aerosol inhaler (Xopenex HFA) metformin 500 mg tablet 1,000 mg PO BID 06/17/20 12/31/22 blood sugar diagnostic (Blood #200 09/09/22 12/31/22 Glucose Test strips) 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 meter #1 09/09/22 12/31/22 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 meter,continuous #1 09/09/22 12/31/22 (Dexcom G7 [facility]) 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 sensor (Dexcom G7 #3 09/09/22 12/31/22 Sensor device) cefazolin 2 gram/50 mL in dextrose 2 g IV Q8H #0 ea 09/09/22 12/31/22 (iso-osmotic) intravenous piggyback diclofenac sodium 1 % topical gel 2 g topical QID PRN PRN #100 grams 09/09/22 12/31/22 folic acid 1 mg tablet 1 mg PO DAILY #30 tabs 09/09/22 12/31/22 insulin aspart U-100 100 unit/mL 1 sliding scale dose subcut 09/09/22 12/31/22 (3 mL) subcutaneous pen (Novolog USEASDIRECTD #15 mL FlexPen U-100 Insulin aspart) lancets 30 gauge #200 ea 09/09/22 12/31/22 magnesium chloride 64 mg 128 mg (2 x 64 mg) PO BID #120 tabs 09/09/22 12/31/22 (magnesium chloride) tablet,delayed release (Mag 64) pantoprazole 20 mg tablet,delayed 20 mg PO DAILY@0730 #30 tabs 09/09/22 12/31/22 release pen needle, diabetic 31 gauge x #200 ea 09/09/22 12/31/22 5/16 (Sure-Fine Pen Foster) spironolactone 100 mg tablet 100 mg PO DAILY #30 tabs 09/09/22 12/31/22 torsemide 20 mg tablet 20 mg PO DAILY #30 tabs 09/09/22 12/31/22 insulin detemir U-100 100 unit/mL 15 unit subcut DAILY 09/18/22 12/31/22 (3 mL) subcutaneous pen (Levemir FlexPen) ondansetron 4 mg disintegrating 4 mg PO Q8H PRN nausea and 07/15/23 tablet vomiting #30 tabs Previous Rx's Medication Instructions Recorded blood sugar diagnostic (Blood #200 ea 09/09/22 Glucose Test strips) 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 meter #1 ea 09/09/22 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 meter,continuous #1 ea 09/09/22 (Dexcom G7 [facility]) 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 sensor (Dexcom G7 #3 ea 09/09/22 Sensor device) cefazolin 2 gram/50 mL in dextrose 2 g IV Q8H #0 iban 09/09/22 (iso-osmotic) intravenous piggyback diclofenac sodium 1 % topical gel 2 g topical QID PRN PRN #100 grams 09/09/22 folic acid 1 mg tablet 1 mg PO DAILY #30 tabs 09/09/22 insulin aspart U-100 100 unit/mL 1 sliding scale dose subcut 09/09/22 (3 mL) subcutaneous pen (Novolog USEASDIRECTD #15 mL FlexPen U-100 Insulin aspart) lancets 30 gauge #200 ea 09/09/22 magnesium chloride 64 mg 128 mg (2 x 64 mg) PO BID #120 tabs 09/09/22 (magnesium chloride) tablet,delayed release (Mag 64) pantoprazole 20 mg tablet,delayed 20 mg PO DAILY@0730 #30 tabs 09/09/22 release pen needle, diabetic 31 gauge x #200 ea 09/09/22 5/16 (Sure-Fine Pen Foster) spironolactone 100 mg tablet 100 mg PO DAILY #30 tabs 09/09/22 torsemide 20 mg tablet 20 mg PO DAILY #30 tabs 09/09/22 ondansetron 4 mg disintegrating 4 mg PO Q8H PRN nausea and 07/15/23 tablet vomiting #30 tabs Allergies Allergy/AdvReac Type Severity Reaction Status Date / Time codeine AdvReac Unknown unable to Verified 07/15/23 19:48 take related to colon removal ibuprofen AdvReac Unknown unable to Verified 07/15/23 19:48 take related to colon removal General Stated Complaint: Dizzy/Sync WILL: 3 Review of Systems All systems reviewed & are unremarkable except as noted in HPI and below Constitutional Constitutional: Denies chills, Denies fever(s) and Denies weakness Cardiovascular Cardiovascular: Denies chest pain and Denies dyspnea Respiratory Respiratory: Denies cough and Denies dyspnea Gastrointestinal Gastrointestinal: Denies abdominal pain, Reports nausea and Reports vomiting Musculoskeletal Musculoskeletal: Denies joint swelling Neurologic Neurologic: Denies weakness Exam Const General: no acute distress Orientation: alert [facility] Head: normal to inspection Ears: external ears normal General nose exam: external nose normal Mouth: moist mucous membranes Neck Neck: normal visual inspection Resp Effort & Inspection: normal respiratory effort and able to speak in complete sentences Auscultation: clear to auscultation bilaterally Cardio Rate: regular rate Heart Sounds: no murmurs GI Palpation: soft and nontender Skin General skin exam: no rashes or lesions noted Neuro General: patient alert and patient oriented x3 Extrem General: normal to inspection Psych Mental Status: mental status grossly normal Course Vital Signs Vital signs: Vital Signs Temperature 36.8 C 07/15/23 19:45 Pulse 92 H 07/15/23 19:45 Respiratory Rate 22 07/15/23 19:45 Blood Pressure 133/31 L 07/15/23 19:45 Pulse Oximetry 99 07/15/23 19:45 Temperature 36.8 C 07/15/23 19:45 Temperature Source Skin 07/15/23 19:45 Pulse 92 H 07/15/23 19:45 Respiratory Rate 22 07/15/23 19:45 Respiratory Effort Normal 07/15/23 19:47 Blood Pressure 133/31 L 07/15/23 19:45 Blood Pressure Position Supine 07/15/23 19:45 Pulse Oximetry 99 07/15/23 19:45 Oxygen Delivery Method Room Air 07/15/23 19:45 Oxygen Flow Rate 0 07/15/23 19:45 Medical Decision Making 57-year-old female with a 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 She denies any chest pain, difficulty breathing, abdominal pain, she does note she has had some epigastric burning when she vomits. She is alert and oriented x 4 on arrival has mild scleral icterus bilaterally. Has no tremors or tremulousness of her arms or legs. She has a soft nontender abdomen, clear lungs. She is not sure the name of the medication that they put her on a week ago. Suspect medication reaction, will treat with Zofran fluids and check a metabolic panel to evaluate for possible electrolyte abnormalities with the vomiting she has had. Given lack of chest pain doubt ACS and do not feel workup for this indicated and she has no abdominal tenderness so doubt surgical pathology such as SBO. Labs show no significant abnormalities from baseline, creatinine is 1.7 to seems to range from 1.1-1.71 with negative prior values. lipase just outside normal range, has no pain currently so doubt acute pancreatitis. LFTs elevated but again consistently elevated in the past, procalcitonin reassuring as is no leukocytosis. She feels better, has no abdominal tenderness so do not feel any imaging acutely of her abdomen indicated. Will prescribe her some Zofran and that she can use [id number] antacid such as Tums and Mylanta. She will follow-up with her primary care provider and return precautions given Differential Diagnosis Differential Diagnosis: Medication reaction, dehydration Medical Records Medical records reviewed: Yes I reviewed the patient's medical records. Lab Data Lab results reviewed: Yes I reviewed the patient's lab results. ECG Data Attestation: I personally reviewed and interpreted this ECG (s) as follows: Prior ECG tracings: available for review Interpretation: sinus rate of 93 pr 156 no stemi Quality:SDOH Health Related Social Needs: No Data to Display PFSH All Active Problems (Updated 07/15/23 @ 21:07 by Martin De Leon MD) Dehydration (Acute) Nausea & vomiting (Acute) Thrombosis of right cephalic vein (Acute) Folate deficiency (Acute) Sepsis (Acute) IDDM (insulin dependent diabetes mellitus) (Chronic) Obesity (BMI 30.0-34.9) (Chronic) Heme + stool (Acute) Hypoglycemia (Acute) Hypokalemia (Acute) Hypomagnesemia (Acute) Pleuritic chest pain (Acute) Staphylococcus aureus bacteremia (Acute) Hypotension (Acute) Thrombocytopenia (Chronic) Leukocytosis (Acute) Coagulopathy (Acute) Hypoproteinemia (Acute) Hypocalcemia (Acute) Gram-positive cocci bacteremia (Acute 08/23/22) Septic arthritis of knee, left (Acute ~08/09/22) S/P washout/debridement: 08/24/2022 Cirrhosis of liver (Chronic) Hyperbilirubinemia (Acute) Acute dehydration (Acute) ADHD (Acute) Crohn's disease in remission (Acute) Anemia of chronic disease (Acute) Acute exacerbation of chronic low back pain (Acute) Back pain (Acute) Stoma bleed (Acute) Chest pain (Acute) H/O malignant neoplasm of colon (Acute) Anemia, blood loss (Acute) GI bleed (Chronic) Medical History Hepatorenal syndrome Hyposmia Adjustment disorder Chronic low back pain Vitamin B12 deficiency Vitamin D deficiency HADLEY (obstructive sleep apnea) GERD (gastroesophageal reflux disease) Depression with anxiety Diabetes mellitus type 2 in obese PTSD (post-traumatic stress disorder) Colon cancer Surgical History S/P D&C (status post dilation and curettage) S/P LEEP H/O ileostomy History of endometrial ablation S/P colectomy Family History Mother , age 49 due to heart disease Diabetes Heart disease Hypertension Father Heart disease Social History Smoking/Tobacco Use Status: Never Smoking risk assessment performed?: Yes Alcohol Intake: never Drug use: Never Substance use type: does not use Household members: family Housing: house Number of Children: 5 number of grandchildren: 15 Pets and animals: Yes Pets and animals: dog(s) What type of physical activity do you participate in: none Seatbelt use: always Do you feel safe at home: Yes Do you feel safe in your relationship?: Yes
[2023-07-15 20:01] VITALS: RESP 18
[2023-07-15 20:10] LABS: Abs Immature Grans 0.03 10^3/uL (0.0-0.06); Absolute Basophil Count 0.01 10^3/uL (0.0-0.2); Absolute Eosinophil Count 0.02 10^3/uL (0.0-0.7); Absolute Lymphocyte Count 0.45 10^3/uL (1.2-3.4); Basophils % 0.2 %; Eosinophils % 0.3 %; HCT 28.9 % (36.0-46.0); HGB 9.7 g/dL (11.2-15.7); Immature Grans % 0.5 %; Lymphocytes % 7.6 %; MCH 35.4 pg (27.0-33.0); MCHC 33.6 % (32.0-36.0); MCV 106 fL (80-95); MPV 11.6 fL (8.0-11.0); Monocytes % 10.2 %; Neutrophils % 81.2 %; RBC 2.74 10^6/uL (3.93-5.22); RDW 14.2 % (11.7-14.6); RDW-SD 55.2 fL; WBC 5.91 10^3/uL (4.4-10.8)
[2023-07-15] MEDS: Normal Saline 1,000 ML 1000 ML IV (20:11)
[2023-07-15] MEDS: Ondansetron 4 MG/2 ML VIAL IVP (20:12)
[2023-07-15 20:23] LABS: INR 1.9 (0.9-1.1); Prothrombin Time 18.4 sec (9.1-11.1)
[2023-07-15 20:24] LABS: ALT 182 U/L (14-59); AST 485 U/L (15-37); Albumin 2.1 g/dL (3.4-5.0); Alkaline Phosphatase 316 U/L (46-116); Anion Gap 9.4 mmol/L (3-11); BUN 28 mg/dL (7-18); Bilirubin, Direct 5.6 mg/dL (0.0-0.2); Bilirubin, Total 10.2 mg/dL (0.2-1.0); CO2 21.6 mmol/L (21.0-32.0); CREATININE 1.7 mg/dL (0.55-1.02); Calcium 8.1 mg/dL (8.5-10.1); Chloride 95 mmol/L (98-107); Estimated GFR 34.76 (mL/min/1.73m2); Glucose 249 mg/dL (74-106); Lipase 82 U/L (16-77); Magnesium 2.1 mg/dL (1.8-2.4); Potassium 3.8 mmol/L (3.5-5.1); Sodium 126 mmol/L (136-145); Total Protein 5.4 g/dL (6.4-8.2)
[2023-07-15 20:29] LABS: Platelet Count 73 10^3/uL (130-400)
[2023-07-15 20:31] LABS: Diff Comment RBC Morph Reviewed; Macrocytosis 1+
[2023-07-15 20:56] LABS: Procalcitonin 0.2 ng/mL
[2023-07-15] MEDS: Ondansetron O.D.T. 4 MG TABEF, 3 TABS/BTL PO (21:13)
== END 2023-07-15 21:15 | disposition home or self-care (01) ==
PROVIDERS: Emergency Provider Emergency Medicine; PCP Family Medicine
DX: R11.2 Nausea with vomiting, unspecified (principal); E86.0 Dehydration; K74.69 Other cirrhosis of liver; K75.81 Nonalcoholic steatohepatitis (NASH); E11.9 Type 2 diabetes mellitus without complications; Z79.84 Long term (current) use of oral hypoglycemic drugs; Z79.82 Long term (current) use of aspirin
CPT/HCPCS: 36415; 80053; 83690; 84145; 93005; 96361; 96374; 99284; 82248; 83735; 85025; 85610; 85730; 93010; J2405

== ENCOUNTER 2023-07-20 01:28 | Outpatient (CLI) | payer MEDICARE, SELFPAY ==
[2023-07-20 12:12] LABS: HCT 27.6 % (36.0-46.0); HGB 9.6 g/dL (11.2-15.7); MCHC 34.8 % (32.0-36.0); MCV 103 fL (80-95); MPV 10.5 fL (8.0-11.0); Platelet Count 103 10^3/uL (130-400); RBC 2.67 10^6/uL (3.93-5.22); RDW 14.6 % (11.7-14.6); RDW-SD 54.4 fL; WBC 10.17 10^3/uL (4.4-10.8)
[2023-07-20 12:25] LABS: INR 1.9 (0.9-1.1); Prothrombin Time 17.8 sec (9.1-11.1)
[2023-07-20 12:31] LABS: ALT 93 U/L (14-59); AST 93 U/L (15-37); Albumin 1.8 g/dL (3.4-5.0); Alkaline Phosphatase 409 U/L (46-116); Anion Gap 8.1 mmol/L (3-11); BUN 31 mg/dL (7-18); Bilirubin, Total 11.8 mg/dL (0.2-1.0); CO2 21.9 mmol/L (21.0-32.0); CREATININE 1.3 mg/dL (0.55-1.02); Calcium 7.7 mg/dL (8.5-10.1); Chloride 102 mmol/L (98-107); Estimated GFR 47.96 (mL/min/1.73m2); Glucose 121 mg/dL (74-106); Potassium 4.1 mmol/L (3.5-5.1); Sodium 132 mmol/L (136-145); Total Protein 4.9 g/dL (6.4-8.2)
[2023-07-20 14:13] LABS: Absolute Lymphocyte Count 1.53 10^3/uL (1.2-3.4); Absolute Monocyte Count 0.92 10^3/uL (0.1-0.8); Absolute Neutrophil Count 7.63 10^3/uL (1.2-6.7)
[2023-07-20 14:14] LABS: Diff Comment Manual Differential; RBC Morphology Normal
== END 2023-07-20 01:29 | disposition home or self-care (01) ==
LOC: LBO 01:29
PROVIDERS: PCP Family Medicine; Visit Provider Internal Medicine Gastroenterology
DX: K74.60 Unspecified cirrhosis of liver (principal)
CPT/HCPCS: 36415; 80053; 85025; 85610

== ENCOUNTER 2023-07-23 00:57 | Outpatient (CLI) | payer MEDICARE, SELFPAY ==
[2023-07-23 12:19] LABS: HCT 27.3 % (36.0-46.0); HGB 9.2 g/dL (11.2-15.7); MCH 35.4 pg (27.0-33.0); MCHC 33.7 % (32.0-36.0); MCV 105 fL (80-95); MPV 9.7 fL (8.0-11.0); Platelet Count 118 10^3/uL (130-400); RDW 15.4 % (11.7-14.6); RDW-SD 57.3 fL; WBC 11.45 10^3/uL (4.4-10.8)
[2023-07-23 12:30] LABS: INR 1.7 (0.9-1.1); Prothrombin Time 16.7 sec (9.1-11.1)
[2023-07-23 12:34] LABS: ALT 62 U/L (14-59); AST 58 U/L (15-37); Alkaline Phosphatase 446 U/L (46-116); Anion Gap 8.2 mmol/L (3-11); BUN 31 mg/dL (7-18); Bilirubin, Total 14.4 mg/dL (0.2-1.0); CO2 21.8 mmol/L (21.0-32.0); CREATININE 1.2 mg/dL (0.55-1.02); Calcium 7.9 mg/dL (8.5-10.1); Chloride 101 mmol/L (98-107); Glucose 167 mg/dL (74-106); Potassium 4.5 mmol/L (3.5-5.1); Sodium 131 mmol/L (136-145); Total Protein 5.2 g/dL (6.4-8.2)
[2023-07-23 12:44] LABS: Absolute Eosinophil Count 0.11 10^3/uL (0.0-0.7); Absolute Lymphocyte Count 0.92 10^3/uL (1.2-3.4); Absolute Monocyte Count 2.18 10^3/uL (0.1-0.8); Absolute Neutrophil Count 8.24 10^3/uL (1.2-6.7); Atypical Lymphocytes % 1 %
[2023-07-23 12:45] LABS: Diff Comment Manual Differential; RBC Morphology Normal
== END 2023-07-23 00:58 | disposition home or self-care (01) ==
LOC: LBO 00:58
PROVIDERS: PCP Family Medicine; Visit Provider Internal Medicine Gastroenterology
DX: K74.60 Unspecified cirrhosis of liver (principal)
CPT/HCPCS: 36415; 80053; 85025; 85610

== ENCOUNTER 2023-07-30 05:21 | Outpatient (CLI) | payer MEDICARE, SELFPAY ==
[2023-07-30 09:06] LABS: Absolute Basophil Count 0.03 10^3/uL (0.0-0.2); Absolute Eosinophil Count 0.07 10^3/uL (0.0-0.7); Absolute Lymphocyte Count 1.25 10^3/uL (1.2-3.4); Absolute Monocyte Count 0.91 10^3/uL (0.1-0.8); Absolute Neutrophil Count 5.69 10^3/uL (1.2-6.7); Basophils % 0.4 %; Eosinophils % 0.8 %; HCT 23.2 % (36.0-46.0); HGB 7.8 g/dL (11.2-15.7); Immature Grans % 3.6 %; Lymphocytes % 15.2 %; MCH 35.8 pg (27.0-33.0); MCHC 33.6 % (32.0-36.0); MCV 106 fL (80-95); RBC 2.18 10^6/uL (3.93-5.22); RDW 19.4 % (11.7-14.6); RDW-SD 71.4 fL; WBC 8.25 10^3/uL (4.4-10.8)
[2023-07-30 09:19] LABS: INR 1.8 (0.9-1.1); Prothrombin Time 16.8 sec (9.1-11.1)
[2023-07-30 09:22] LABS: ALT 39 U/L (14-59); AST 57 U/L (15-37); Albumin 1.7 g/dL (3.4-5.0); Alkaline Phosphatase 429 U/L (46-116); Anion Gap 7.3 mmol/L (3-11); BUN 24 mg/dL (7-18); Bilirubin, Total 11.8 mg/dL (0.2-1.0); CO2 20.7 mmol/L (21.0-32.0); Calcium 7.5 mg/dL (8.5-10.1); Chloride 105 mmol/L (98-107); Estimated GFR 65.71 (mL/min/1.73m2); Glucose 171 mg/dL (74-106); Potassium 4.4 mmol/L (3.5-5.1); Sodium 133 mmol/L (136-145); Total Protein 4.6 g/dL (6.4-8.2)
[2023-07-30 09:31] LABS: Macrocytosis 1+; Polychromasia Present
[2023-07-30 09:32] LABS: Platelet Count 84 10^3/uL (130-400)
== END 2023-07-30 05:22 | disposition home or self-care (01) ==
LOC: LBO 05:21
PROVIDERS: PCP Family Medicine; Visit Provider Internal Medicine Gastroenterology
DX: K74.60 Unspecified cirrhosis of liver (principal)
CPT/HCPCS: 36415; 80053; 85025; 85610

== ENCOUNTER 2023-09-02 00:59 | Outpatient (CLI) | payer MEDICARE, SELFPAY ==
[2023-09-02 09:08] LABS: Abs Immature Grans 0.18 10^3/uL (0.0-0.06); Absolute Basophil Count 0.06 10^3/uL (0.0-0.2); Absolute Eosinophil Count 0.14 10^3/uL (0.0-0.7); Absolute Monocyte Count 0.87 10^3/uL (0.1-0.8); Absolute Neutrophil Count 5.93 10^3/uL (1.2-6.7); Basophils % 0.7 %; Eosinophils % 1.7 %; HCT 31.9 % (36.0-46.0); HGB 10.6 g/dL (11.2-15.7); Immature Grans % 2.2 %; Lymphocytes % 11.1 %; MCH 33.5 pg (27.0-33.0); MCHC 33.2 % (32.0-36.0); MCV 101 fL (80-95); MPV 9.2 fL (8.0-11.0); Monocytes % 10.8 %; Neutrophils % 73.5 %; Platelet Count 213 10^3/uL (130-400); RBC 3.16 10^6/uL (3.93-5.22); RDW 18.6 % (11.7-14.6); RDW-SD 68.2 fL; WBC 8.08 10^3/uL (4.4-10.8)
[2023-09-02 09:17] LABS: INR 1.1 (0.9-1.1); Prothrombin Time 10.7 sec (9.1-11.1)
[2023-09-02 09:29] LABS: ALT 104 U/L (14-59); AST 48 U/L (15-37); Albumin 3.6 g/dL (3.4-5.0); Alkaline Phosphatase 196 U/L (46-116); Anion Gap 12.3 mmol/L (3-11); BUN 32 mg/dL (7-18); Bilirubin, Total 1.29 mg/dL (0.2-1.0); CO2 23.7 mmol/L (21.0-32.0); Calcium 8.9 mg/dL (8.5-10.1); Chloride 101 mmol/L (98-107); Glucose 135 mg/dL (74-106); Magnesium 2.1 mg/dL (1.8-2.4); PHOSPHORUS 4.8 mg/dL (2.6-4.7); Sodium 137 mmol/L (136-145); Total Protein 6.8 g/dL (6.4-8.2)
[2023-09-03 18:15] LABS: Tacrolimus 5.3 ng/mL (See Note)
[2023-09-05 23:41] LABS: CMV DNA Detect/Quant, P Undetected IU/mL (Undetected)
== END 2023-09-02 01:00 | disposition home or self-care (01) ==
LOC: LBO 00:59
PROVIDERS: PCP Family Medicine; Visit Provider Internal Medicine Gastroenterology
DX: Z94.4 Liver transplant status (principal); D84.9 Immunodeficiency, unspecified
CPT/HCPCS: 36415; 80053; 80197; 83735; 84100; 85025; 85610; 87496; 87497

== ENCOUNTER 2023-09-06 03:56 | Outpatient (CLI) | payer MEDICARE, SELFPAY ==
[2023-09-06 09:28] LABS: Abs Immature Grans 0.24 10^3/uL (0.0-0.06); Absolute Basophil Count 0.06 10^3/uL (0.0-0.2); Absolute Eosinophil Count 0.05 10^3/uL (0.0-0.7); Absolute Lymphocyte Count 1.12 10^3/uL (1.2-3.4); Absolute Monocyte Count 0.93 10^3/uL (0.1-0.8); Absolute Neutrophil Count 7.82 10^3/uL (1.2-6.7); Basophils % 0.6 %; Eosinophils % 0.5 %; HCT 34.4 % (36.0-46.0); HGB 11.8 g/dL (11.2-15.7); Immature Grans % 2.3 %; MCH 33.5 pg (27.0-33.0); MCHC 34.3 % (32.0-36.0); MCV 98 fL (80-95); MPV 9.6 fL (8.0-11.0); Monocytes % 9.1 %; Neutrophils % 76.5 %; Platelet Count 227 10^3/uL (130-400); RBC 3.52 10^6/uL (3.93-5.22); RDW 17.7 % (11.7-14.6); RDW-SD 62.6 fL; WBC 10.22 10^3/uL (4.4-10.8)
[2023-09-06 09:55] LABS: ALT 140 U/L (14-59); AST 50 U/L (15-37); Albumin 3.9 g/dL (3.4-5.0); Alkaline Phosphatase 225 U/L (46-116); BUN 52 mg/dL (7-18); Bilirubin, Total 1.22 mg/dL (0.2-1.0); CREATININE 2.2 mg/dL (0.55-1.02); Calcium 9.3 mg/dL (8.5-10.1); Chloride 102 mmol/L (98-107); Estimated GFR 25.51 (mL/min/1.73m2); Glucose 135 mg/dL (74-106); Potassium 4.9 mmol/L (3.5-5.1); Sodium 138 mmol/L (136-145); Total Protein 7.3 g/dL (6.4-8.2)
[2023-09-06 09:59] LABS: INR 1.1 (0.9-1.1); Prothrombin Time 10.6 sec (9.1-11.1)
[2023-09-06 12:48] LABS: Magnesium 2.7 mg/dL (1.8-2.4); PHOSPHORUS 5.6 mg/dL (2.6-4.7)
[2023-09-07 09:50] LABS: Tacrolimus 6.2 ng/mL (See Note)
[2023-09-08 17:53] LABS: CMV DNA Detect/Quant, P Undetected IU/mL (Undetected)
== END 2023-09-06 03:57 | disposition home or self-care (01) ==
LOC: LBO 03:56
PROVIDERS: PCP Family Medicine; Visit Provider Internal Medicine Gastroenterology
DX: K74.60 Unspecified cirrhosis of liver (principal); Z94.4 Liver transplant status; D84.9 Immunodeficiency, unspecified
CPT/HCPCS: 36415; 80053; 80197; 83735; 84100; 85025; 85610; 87496; 87497

== ENCOUNTER 2023-09-09 02:39 | Outpatient (CLI) | payer MEDICARE, SELFPAY ==
[2023-09-09 09:00] LABS: Abs Immature Grans 0.24 10^3/uL (0.0-0.06); Absolute Basophil Count 0.05 10^3/uL (0.0-0.2); Absolute Eosinophil Count 0.07 10^3/uL (0.0-0.7); Absolute Lymphocyte Count 1.35 10^3/uL (1.2-3.4); Absolute Monocyte Count 1.01 10^3/uL (0.1-0.8); Absolute Neutrophil Count 7.53 10^3/uL (1.2-6.7); Basophils % 0.5 %; Eosinophils % 0.7 %; HCT 36.6 % (36.0-46.0); HGB 12.8 g/dL (11.2-15.7); Immature Grans % 2.3 %; Lymphocytes % 13.2 %; MCH 33.2 pg (27.0-33.0); MCV 95 fL (80-95); Monocytes % 9.9 %; Neutrophils % 73.4 %; Platelet Count 219 10^3/uL (130-400); RBC 3.85 10^6/uL (3.93-5.22); RDW 17.1 % (11.7-14.6); RDW-SD 59.2 fL; WBC 10.25 10^3/uL (4.4-10.8)
[2023-09-09 09:11] LABS: Prothrombin Time 10.4 sec (9.1-11.1)
[2023-09-09 09:28] LABS: ALT 136 U/L (14-59); AST 37 U/L (15-37); Albumin 4.2 g/dL (3.4-5.0); Alkaline Phosphatase 210 U/L (46-116); Anion Gap 16.8 mmol/L (3-11); Bilirubin, Total 1.07 mg/dL (0.2-1.0); CO2 16.2 mmol/L (21.0-32.0); Calcium 9.1 mg/dL (8.5-10.1); Chloride 99 mmol/L (98-107); Estimated GFR 12.83 (mL/min/1.73m2); Glucose 153 mg/dL (74-106); Magnesium 2.8 mg/dL (1.8-2.4); PHOSPHORUS 6.9 mg/dL (2.6-4.7); Potassium 4.9 mmol/L (3.5-5.1); Sodium 132 mmol/L (136-145); Total Protein 7.5 g/dL (6.4-8.2)
[2023-09-09 09:50] LABS: BUN 83 mg/dL (7-18); CREATININE 3.9 mg/dL (0.55-1.02)
[2023-09-11 06:22] LABS: Tacrolimus 11.7 ng/mL (See Note)
[2023-09-11 20:02] LABS: CMV DNA Detect/Quant, P Undetected IU/mL (Undetected)
== END 2023-09-09 02:40 | disposition home or self-care (01) ==
LOC: LBO 02:39
PROVIDERS: PCP Family Medicine; Visit Provider Internal Medicine Gastroenterology
DX: Z94.4 Liver transplant status (principal); D84.9 Immunodeficiency, unspecified
CPT/HCPCS: 36415; 80053; 80197; 83735; 84100; 85025; 85610; 87497

== ENCOUNTER 2023-09-13 02:18 | Outpatient (CLI) | payer MEDICARE, SELFPAY ==
[2023-09-13 09:36] LABS: Absolute Basophil Count 0.03 10^3/uL (0.0-0.2); Absolute Eosinophil Count 0.08 10^3/uL (0.0-0.7); Absolute Lymphocyte Count 1.11 10^3/uL (1.2-3.4); Absolute Monocyte Count 0.64 10^3/uL (0.1-0.8); Basophils % 0.4 %; Eosinophils % 1.1 %; HCT 32.5 % (36.0-46.0); Immature Grans % 1.4 %; Lymphocytes % 15.1 %; MCH 33.6 pg (27.0-33.0); MCHC 33.8 % (32.0-36.0); MCV 99 fL (80-95); MPV 8.9 fL (8.0-11.0); Monocytes % 8.7 %; Neutrophils % 73.3 %; Platelet Count 159 10^3/uL (130-400); RBC 3.27 10^6/uL (3.93-5.22); RDW 17.3 % (11.7-14.6); RDW-SD 64.2 fL; WBC 7.36 10^3/uL (4.4-10.8)
[2023-09-13 10:20] LABS: ALT 121 U/L (14-59); AST 34 U/L (15-37); Albumin 3.7 g/dL (3.4-5.0); Alkaline Phosphatase 154 U/L (46-116); Anion Gap 13.1 mmol/L (3-11); BUN 58 mg/dL (7-18); Bilirubin, Total 0.93 mg/dL (0.2-1.0); CO2 17.9 mmol/L (21.0-32.0); CREATININE 2.4 mg/dL (0.55-1.02); Calcium 9.3 mg/dL (8.5-10.1); Chloride 107 mmol/L (98-107); Estimated GFR 22.98 (mL/min/1.73m2); Glucose 141 mg/dL (74-106); Magnesium 2.3 mg/dL (1.8-2.4); PHOSPHORUS 4.5 mg/dL (2.6-4.7); Potassium 4.7 mmol/L (3.5-5.1); Sodium 138 mmol/L (136-145); Total Protein 6.7 g/dL (6.4-8.2)
[2023-09-13 10:53] LABS: INR 1.1 (0.9-1.1); Prothrombin Time 10.6 sec (9.1-11.1)
[2023-09-14 13:31] LABS: Tacrolimus 6.8 ng/mL (See Note)
[2023-09-15 14:52] LABS: CMV DNA Detect/Quant, P Undetected IU/mL (Undetected)
== END 2023-09-13 02:19 | disposition home or self-care (01) ==
LOC: LBO 02:18
PROVIDERS: PCP Family Medicine; Visit Provider Internal Medicine Gastroenterology
DX: Z94.4 Liver transplant status (principal); D84.9 Immunodeficiency, unspecified
CPT/HCPCS: 36415; 80053; 80197; 83735; 84100; 85025; 85610; 87496; 87497

== ENCOUNTER 2023-09-20 02:27 | Outpatient (CLI) | payer MEDICARE, SELFPAY ==
[2023-09-20 08:14] LABS: Abs Immature Grans 0.15 10^3/uL (0.0-0.06); Absolute Basophil Count 0.02 10^3/uL (0.0-0.2); Absolute Eosinophil Count 0.05 10^3/uL (0.0-0.7); Absolute Lymphocyte Count 1.05 10^3/uL (1.2-3.4); Absolute Neutrophil Count 4.43 10^3/uL (1.2-6.7); Basophils % 0.3 %; Eosinophils % 0.8 %; HCT 33.6 % (36.0-46.0); HGB 11.1 g/dL (11.2-15.7); Immature Grans % 2.4 %; Lymphocytes % 16.9 %; MCH 33.5 pg (27.0-33.0); MCV 102 fL (80-95); MPV 8.5 fL (8.0-11.0); Monocytes % 8.1 %; Neutrophils % 71.5 %; Platelet Count 139 10^3/uL (130-400); RBC 3.31 10^6/uL (3.93-5.22); RDW 17.2 % (11.7-14.6); RDW-SD 64.4 fL
[2023-09-20 08:31] LABS: ALT 96 U/L (14-59); AST 27 U/L (15-37); Albumin 3.7 g/dL (3.4-5.0); Alkaline Phosphatase 123 U/L (46-116); Anion Gap 13.2 mmol/L (3-11); BUN 47 mg/dL (7-18); Bilirubin, Total 0.81 mg/dL (0.2-1.0); CO2 16.8 mmol/L (21.0-32.0); Calcium 8.8 mg/dL (8.5-10.1); Chloride 115 mmol/L (98-107); Glucose 118 mg/dL (74-106); Magnesium 1.9 mg/dL (1.8-2.4); PHOSPHORUS 3.9 mg/dL (2.6-4.7); Potassium 4.7 mmol/L (3.5-5.1); Prothrombin Time 10.4 sec (9.1-11.1); Sodium 145 mmol/L (136-145); Total Protein 6.4 g/dL (6.4-8.2)
[2023-09-21 11:10] LABS: Tacrolimus 7.3 ng/mL (See Note)
[2023-09-22 08:35] LABS: CMV DNA Detect/Quant, P Undetected IU/mL (Undetected)
== END 2023-09-20 02:28 | disposition home or self-care (01) ==
PROVIDERS: PCP Family Medicine; Visit Provider Internal Medicine Gastroenterology
DX: Z94.4 Liver transplant status (principal)
CPT/HCPCS: 36415; 80053; 80197; 83735; 84100; 85025; 85610; 87497

== ENCOUNTER 2023-09-27 03:29 | Outpatient (CLI) | payer MEDICARE, SELFPAY ==
[2023-09-27 09:43] LABS: Abs Immature Grans 0.07 10^3/uL (0.0-0.06); Absolute Basophil Count 0.01 10^3/uL (0.0-0.2); Absolute Eosinophil Count 0.03 10^3/uL (0.0-0.7); Absolute Lymphocyte Count 0.87 10^3/uL (1.2-3.4); Absolute Monocyte Count 0.37 10^3/uL (0.1-0.8); Absolute Neutrophil Count 4.11 10^3/uL (1.2-6.7); Basophils % 0.2 %; Eosinophils % 0.5 %; HCT 30.6 % (36.0-46.0); HGB 10.5 g/dL (11.2-15.7); Immature Grans % 1.3 %; Lymphocytes % 15.9 %; MCHC 34.3 % (32.0-36.0); MCV 99 fL (80-95); MPV 8.9 fL (8.0-11.0); Monocytes % 6.8 %; Neutrophils % 75.3 %; Platelet Count 136 10^3/uL (130-400); RBC 3.09 10^6/uL (3.93-5.22); RDW 16.5 % (11.7-14.6); RDW-SD 59.7 fL; WBC 5.46 10^3/uL (4.4-10.8)
[2023-09-27 09:48] LABS: INR 1.1 (0.9-1.1); Prothrombin Time 10.7 sec (9.1-11.1)
[2023-09-27 10:24] LABS: ALT 93 U/L (14-59); AST 25 U/L (15-37); Albumin 3.4 g/dL (3.4-5.0); Alkaline Phosphatase 91 U/L (46-116); Anion Gap 10.1 mmol/L (3-11); BUN 40 mg/dL (7-18); Bilirubin, Total 0.65 mg/dL (0.2-1.0); CO2 18.9 mmol/L (21.0-32.0); CREATININE 1.5 mg/dL (0.55-1.02); Calcium 8.9 mg/dL (8.5-10.1); Chloride 113 mmol/L (98-107); Estimated GFR 40.39 (mL/min/1.73m2); Glucose 129 mg/dL (74-106); Magnesium 1.9 mg/dL (1.8-2.4); Sodium 142 mmol/L (136-145)
[2023-09-27 11:48] LABS: PHOSPHORUS 2.9 mg/dL (2.6-4.7)
[2023-09-28 09:25] LABS: Tacrolimus 4.9 ng/mL (See Note)
[2023-09-29 13:10] LABS: CMV DNA Detect/Quant, P Undetected IU/mL (Undetected)
== END 2023-09-27 03:30 | disposition home or self-care (01) ==
LOC: LBO 03:29
PROVIDERS: PCP Family Medicine; Visit Provider Internal Medicine Gastroenterology
DX: Z94.4 Liver transplant status (principal)
CPT/HCPCS: 36415; 80053; 80197; 83735; 84100; 85025; 85610; 87497

== ENCOUNTER 2023-10-04 03:32 | Outpatient (CLI) | payer MEDICARE, SELFPAY ==
[2023-10-04 09:46] LABS: Abs Immature Grans 0.11 10^3/uL (0.0-0.06); Absolute Basophil Count 0.01 10^3/uL (0.0-0.2); Absolute Eosinophil Count 0.03 10^3/uL (0.0-0.7); Absolute Lymphocyte Count 0.85 10^3/uL (1.2-3.4); Absolute Monocyte Count 0.38 10^3/uL (0.1-0.8); Basophils % 0.2 %; Eosinophils % 0.7 %; HCT 32.3 % (36.0-46.0); HGB 10.7 g/dL (11.2-15.7); Immature Grans % 2.6 %; Lymphocytes % 19.9 %; MCH 33.6 pg (27.0-33.0); MCHC 33.1 % (32.0-36.0); MCV 102 fL (80-95); MPV 8.9 fL (8.0-11.0); Monocytes % 8.9 %; Neutrophils % 67.7 %; Platelet Count 138 10^3/uL (130-400); RBC 3.18 10^6/uL (3.93-5.22); RDW 16.1 % (11.7-14.6); RDW-SD 60.6 fL; WBC 4.28 10^3/uL (4.4-10.8)
[2023-10-04 10:12] LABS: ALT 93 U/L (14-59); AST 28 U/L (15-37); Albumin 3.3 g/dL (3.4-5.0); Alkaline Phosphatase 83 U/L (46-116); Anion Gap 10.4 mmol/L (3-11); BUN 30 mg/dL (7-18); Bilirubin, Total 0.58 mg/dL (0.2-1.0); CO2 21.6 mmol/L (21.0-32.0); CREATININE 1.5 mg/dL (0.55-1.02); Calcium 8.4 mg/dL (8.5-10.1); Chloride 112 mmol/L (98-107); Estimated GFR 40.39 (mL/min/1.73m2); Glucose 132 mg/dL (74-106); Magnesium 1.8 mg/dL (1.8-2.4); PHOSPHORUS 3.2 mg/dL (2.6-4.7); Potassium 4.1 mmol/L (3.5-5.1); Sodium 144 mmol/L (136-145); Total Protein 5.7 g/dL (6.4-8.2)
[2023-10-05 11:43] LABS: Tacrolimus 6.1 ng/mL (See Note)
[2023-10-06 15:32] LABS: CMV DNA Detect/Quant, P <35 IU/mL (Undetected)
== END 2023-10-04 03:33 | disposition home or self-care (01) ==
LOC: LBO 03:32
PROVIDERS: PCP Family Medicine; Visit Provider Internal Medicine Gastroenterology
DX: Z94.4 Liver transplant status (principal)
CPT/HCPCS: 36415; 80053; 80197; 83735; 84100; 85025; 85610; 87497

== ENCOUNTER 2023-10-11 04:13 | Outpatient (CLI) | payer MEDICARE, SELFPAY ==
[2023-10-11 09:33] LABS: Abs Immature Grans 0.11 10^3/uL (0.0-0.06); Absolute Basophil Count 0.02 10^3/uL (0.0-0.2); Absolute Eosinophil Count 0.04 10^3/uL (0.0-0.7); Absolute Lymphocyte Count 0.88 10^3/uL (1.2-3.4); Absolute Monocyte Count 0.49 10^3/uL (0.1-0.8); Absolute Neutrophil Count 3.11 10^3/uL (1.2-6.7); Basophils % 0.4 %; Eosinophils % 0.9 %; HCT 32.8 % (36.0-46.0); HGB 11.3 g/dL (11.2-15.7); Immature Grans % 2.4 %; Lymphocytes % 18.9 %; MCH 34.8 pg (27.0-33.0); MCHC 34.5 % (32.0-36.0); MCV 101 fL (80-95); MPV 8.6 fL (8.0-11.0); Monocytes % 10.5 %; Neutrophils % 66.9 %; Platelet Count 123 10^3/uL (130-400); RBC 3.25 10^6/uL (3.93-5.22); RDW 15.1 % (11.7-14.6); RDW-SD 56.1 fL; WBC 4.65 10^3/uL (4.4-10.8)
[2023-10-11 09:44] LABS: Prothrombin Time 10.3 sec (9.1-11.1)
[2023-10-11 10:19] LABS: ALT 80 U/L (14-59); AST 24 U/L (15-37); Albumin 3.2 g/dL (3.4-5.0); Alkaline Phosphatase 70 U/L (46-116); Anion Gap 9.3 mmol/L (3-11); BUN 35 mg/dL (7-18); Bilirubin, Total 0.69 mg/dL (0.2-1.0); CO2 20.7 mmol/L (21.0-32.0); CREATININE 1.5 mg/dL (0.55-1.02); Calcium 8.6 mg/dL (8.5-10.1); Chloride 112 mmol/L (98-107); Estimated GFR 40.39 (mL/min/1.73m2); Glucose 129 mg/dL (74-106); Magnesium 1.8 mg/dL (1.8-2.4); PHOSPHORUS 3.3 mg/dL (2.6-4.7); Potassium 4.5 mmol/L (3.5-5.1); Sodium 142 mmol/L (136-145); Total Protein 5.7 g/dL (6.4-8.2)
[2023-10-12 09:53] LABS: Tacrolimus 7.7 ng/mL (See Note)
[2023-10-13 18:13] LABS: CMV DNA Detect/Quant, P Undetected IU/mL (Undetected)
== END 2023-10-11 04:14 | disposition home or self-care (01) ==
PROVIDERS: PCP Family Medicine; Visit Provider Nurse Practitioner
DX: Z94.4 Liver transplant status (principal)
CPT/HCPCS: 36415; 80053; 80197; 83735; 84100; 85025; 85610; 86644; 86645; 87497

== ENCOUNTER 2023-10-12 01:30 | Outpatient (CLI) | payer MEDICARE, MEDICAID, SELFPAY ==
--- NOTE | 2023-10-12 12:10 | DI.RAD_ITS ---
Exam(s) XR FOOT LT COMPLETE EXAM: XR FOOT LT COMPLETE CLINICAL HISTORY: LT FOOT PAIN, M79.672. TECHNIQUE: 2D digital imaging was performed of the left foot. Three images were obtained. AP, obli que and lateral views were obtained. COMPARISON: No exams were available for comparison FINDINGS: BONES: No acute fracture is present. No bony destructive lesion is seen. There is a small enthesophyt e at the posterior calcaneus. JOINTS: No dislocation present. The joint spaces are well maintained. SOFT TISSUE: Normal. IMPRESSION: Calcaneal spur. DATA REPOSITORY: RADIATION DOSE DELIVERED:
== END 2023-10-12 01:50 ==
PROVIDERS: PCP Family Medicine; Visit Provider Family Medicine
DX: M79.672 Pain in left foot (principal)
CPT/HCPCS: 73630

== ENCOUNTER 2023-10-18 03:14 | Outpatient (CLI) | payer MEDICARE, MEDICAID, SELFPAY ==
[2023-10-18 09:25] LABS: Abs Immature Grans 0.16 10^3/uL (0.0-0.06); Absolute Basophil Count 0.01 10^3/uL (0.0-0.2); Absolute Eosinophil Count 0.02 10^3/uL (0.0-0.7); Absolute Lymphocyte Count 1.02 10^3/uL (1.2-3.4); Absolute Monocyte Count 0.49 10^3/uL (0.1-0.8); Absolute Neutrophil Count 4.07 10^3/uL (1.2-6.7); Basophils % 0.2 %; Eosinophils % 0.3 %; HCT 33.7 % (36.0-46.0); HGB 11.2 g/dL (11.2-15.7); Immature Grans % 2.8 %; Lymphocytes % 17.7 %; MCH 33.4 pg (27.0-33.0); MCHC 33.2 % (32.0-36.0); MCV 101 fL (80-95); MPV 8.9 fL (8.0-11.0); Monocytes % 8.5 %; Neutrophils % 70.5 %; Platelet Count 127 10^3/uL (130-400); RBC 3.35 10^6/uL (3.93-5.22); RDW 14.7 % (11.7-14.6); RDW-SD 54.1 fL; WBC 5.77 10^3/uL (4.4-10.8)
[2023-10-18 09:44] LABS: Prothrombin Time 10.1 sec (9.1-11.1)
[2023-10-18 09:47] LABS: ALT 59 U/L (14-59); AST 14 U/L (15-37); Albumin 3.3 g/dL (3.4-5.0); Alkaline Phosphatase 64 U/L (46-116); BUN 35 mg/dL (7-18); Bilirubin, Total 0.57 mg/dL (0.2-1.0); CREATININE 1.1 mg/dL (0.55-1.02); Chloride 109 mmol/L (98-107); Estimated GFR 58.61 (mL/min/1.73m2); Glucose 93 mg/dL (74-106); Magnesium 1.9 mg/dL (1.8-2.4); Potassium 4.8 mmol/L (3.5-5.1); Sodium 141 mmol/L (136-145); Total Protein 5.9 g/dL (6.4-8.2)
[2023-10-20 00:17] LABS: CMV DNA Detect/Quant, P Undetected IU/mL (Undetected)
== END 2023-10-18 03:15 | disposition home or self-care (01) ==
LOC: LBO 03:14
PROVIDERS: PCP Family Medicine; Visit Provider Nurse Practitioner
DX: Z94.4 Liver transplant status (principal)
CPT/HCPCS: 36415; 80053; 80197; 83735; 84100; 85025; 85610; 87496; 87497

== ENCOUNTER 2023-10-25 01:37 | Outpatient (CLI) | payer MEDICARE, MEDICAID, SELFPAY ==
[2023-10-25 09:06] LABS: Abs Immature Grans 0.16 10^3/uL (0.0-0.06); Absolute Basophil Count 0.03 10^3/uL (0.0-0.2); Absolute Eosinophil Count 0.05 10^3/uL (0.0-0.7); Absolute Lymphocyte Count 1.23 10^3/uL (1.2-3.4); Absolute Monocyte Count 0.56 10^3/uL (0.1-0.8); Basophils % 0.5 %; Eosinophils % 0.8 %; HGB 11.7 g/dL (11.2-15.7); Immature Grans % 2.7 %; Lymphocytes % 20.7 %; MCH 34.1 pg (27.0-33.0); MCHC 33.4 % (32.0-36.0); MCV 102 fL (80-95); MPV 8.7 fL (8.0-11.0); Monocytes % 9.4 %; Neutrophils % 65.9 %; Platelet Count 130 10^3/uL (130-400); RBC 3.43 10^6/uL (3.93-5.22); RDW 14.3 % (11.7-14.6); RDW-SD 52.7 fL; WBC 5.93 10^3/uL (4.4-10.8)
[2023-10-25 09:19] LABS: ALT 45 U/L (14-59); AST 18 U/L (15-37); Albumin 3.4 g/dL (3.4-5.0); Alkaline Phosphatase 63 U/L (46-116); Anion Gap 8.9 mmol/L (3-11); BUN 29 mg/dL (7-18); Bilirubin, Total 0.53 mg/dL (0.2-1.0); CO2 21.1 mmol/L (21.0-32.0); CREATININE 1.5 mg/dL (0.55-1.02); Chloride 111 mmol/L (98-107); Estimated GFR 40.39 (mL/min/1.73m2); Glucose 123 mg/dL (74-106); Magnesium 1.7 mg/dL (1.8-2.4); PHOSPHORUS 4.6 mg/dL (2.6-4.7); Sodium 141 mmol/L (136-145); Total Protein 6.2 g/dL (6.4-8.2)
[2023-10-25 10:07] LABS: Prothrombin Time 9.9 sec (9.1-11.1)
[2023-10-28 15:52] LABS: CMV DNA Detect/Quant, P Undetected IU/mL (Undetected)
== END 2023-10-25 01:38 | disposition home or self-care (01) ==
LOC: LBO 01:38
PROVIDERS: PCP Family Medicine; Visit Provider Internal Medicine Gastroenterology
DX: Z94.4 Liver transplant status (principal); D84.9 Immunodeficiency, unspecified
CPT/HCPCS: 36415; 80053; 80197; 83735; 84100; 85025; 85610; 87497

== ENCOUNTER 2023-11-01 01:48 | Outpatient (CLI) | payer MEDICARE, MEDICAID, SELFPAY ==
[2023-11-01 09:23] LABS: Abs Immature Grans 0.32 10^3/uL (0.0-0.06); Absolute Basophil Count 0.03 10^3/uL (0.0-0.2); Absolute Eosinophil Count 0.03 10^3/uL (0.0-0.7); Absolute Lymphocyte Count 1.38 10^3/uL (1.2-3.4); Absolute Monocyte Count 0.55 10^3/uL (0.1-0.8); Absolute Neutrophil Count 4.44 10^3/uL (1.2-6.7); Basophils % 0.4 %; Eosinophils % 0.4 %; HCT 34.5 % (36.0-46.0); HGB 11.5 g/dL (11.2-15.7); Immature Grans % 4.7 %; Lymphocytes % 20.4 %; MCH 33.7 pg (27.0-33.0); MCHC 33.3 % (32.0-36.0); MCV 101 fL (80-95); MPV 8.7 fL (8.0-11.0); Monocytes % 8.1 %; Platelet Count 146 10^3/uL (130-400); RBC 3.41 10^6/uL (3.93-5.22); RDW 14.5 % (11.7-14.6); RDW-SD 52.8 fL; WBC 6.75 10^3/uL (4.4-10.8)
[2023-11-01 09:38] LABS: Prothrombin Time 9.8 sec (9.1-11.1)
[2023-11-01 09:58] LABS: ALT 43 U/L (14-59); AST 17 U/L (15-37); Albumin 3.3 g/dL (3.4-5.0); Alkaline Phosphatase 57 U/L (46-116); Anion Gap 7.8 mmol/L (3-11); BUN 40 mg/dL (7-18); Bilirubin, Total 0.41 mg/dL (0.2-1.0); CO2 21.2 mmol/L (21.0-32.0); CREATININE 1.4 mg/dL (0.55-1.02); Calcium 8.6 mg/dL (8.5-10.1); Chloride 109 mmol/L (98-107); Estimated GFR 43.88 (mL/min/1.73m2); Glucose 140 mg/dL (74-106); Magnesium 1.8 mg/dL (1.8-2.4); PHOSPHORUS 4.3 mg/dL (2.6-4.7); Potassium 4.6 mmol/L (3.5-5.1); Sodium 138 mmol/L (136-145)
[2023-11-02 11:32] LABS: Tacrolimus 8.2 ng/mL (See Note)
[2023-11-03 13:37] LABS: CMV DNA Detect/Quant, P Undetected IU/mL (Undetected)
== END 2023-11-01 01:49 | disposition home or self-care (01) ==
LOC: LBO 01:48
PROVIDERS: PCP Family Medicine; Visit Provider Internal Medicine Gastroenterology
DX: Z94.4 Liver transplant status (principal)
CPT/HCPCS: 36415; 80053; 80197; 83735; 84100; 85025; 85610; 87497

== ENCOUNTER 2023-11-08 09:44 | Outpatient (CLI) | payer MEDICARE, MEDICAID, SELFPAY ==
[2023-11-08 09:40] LABS: Absolute Basophil Count 0.04 10^3/uL (0.0-0.2); Absolute Eosinophil Count 0.05 10^3/uL (0.0-0.7); Absolute Lymphocyte Count 1.19 10^3/uL (1.2-3.4); Absolute Monocyte Count 0.49 10^3/uL (0.1-0.8); Basophils % 0.7 %; Eosinophils % 0.8 %; HCT 34.3 % (36.0-46.0); HGB 11.2 g/dL (11.2-15.7); Immature Grans % 1.6 %; Lymphocytes % 19.6 %; MCH 33.5 pg (27.0-33.0); MCHC 32.7 % (32.0-36.0); MCV 103 fL (80-95); MPV 8.5 fL (8.0-11.0); Monocytes % 8.1 %; Neutrophils % 69.2 %; Platelet Count 131 10^3/uL (130-400); RBC 3.34 10^6/uL (3.93-5.22); RDW 14.1 % (11.7-14.6); RDW-SD 52.5 fL; WBC 6.07 10^3/uL (4.4-10.8)
[2023-11-08 09:56] LABS: Prothrombin Time 9.9 sec (9.1-11.1)
[2023-11-08 11:16] LABS: ALT 37 U/L (14-59); AST 14 U/L (15-37); Albumin 3.2 g/dL (3.4-5.0); Alkaline Phosphatase 55 U/L (46-116); Anion Gap 6.7 mmol/L (3-11); BUN 33 mg/dL (7-18); Bilirubin, Total 0.53 mg/dL (0.2-1.0); CO2 22.3 mmol/L (21.0-32.0); CREATININE 1.1 mg/dL (0.55-1.02); Calcium 9.2 mg/dL (8.5-10.1); Chloride 112 mmol/L (98-107); Estimated GFR 58.61 (mL/min/1.73m2); Glucose 128 mg/dL (74-106); Magnesium 1.8 mg/dL (1.8-2.4); PHOSPHORUS 4.2 mg/dL (2.6-4.7); Potassium 4.6 mmol/L (3.5-5.1); Sodium 141 mmol/L (136-145); Total Protein 5.9 g/dL (6.4-8.2)
[2023-11-09 10:22] LABS: Tacrolimus 6.5 ng/mL (See Note)
[2023-11-09 22:32] LABS: CMV DNA Detect/Quant, P <35 IU/mL (Undetected)
== END 2023-11-08 09:45 | disposition home or self-care (01) ==
PROVIDERS: PCP Family Medicine; Visit Provider Nurse Practitioner
DX: Z94.4 Liver transplant status (principal)
CPT/HCPCS: 36415; 80053; 80197; 83735; 84100; 85025; 85610; 87497

== ENCOUNTER 2023-11-15 03:24 | Outpatient (CLI) | payer MEDICARE, MEDICAID, SELFPAY ==
[2023-11-15 09:29] LABS: Abs Immature Grans 0.13 10^3/uL (0.0-0.06); Absolute Basophil Count 0.02 10^3/uL (0.0-0.2); Absolute Eosinophil Count 0.03 10^3/uL (0.0-0.7); Absolute Lymphocyte Count 1.09 10^3/uL (1.2-3.4); Basophils % 0.3 %; Eosinophils % 0.4 %; HCT 35.3 % (36.0-46.0); HGB 11.6 g/dL (11.2-15.7); Immature Grans % 1.7 %; Lymphocytes % 14.2 %; MCH 33.7 pg (27.0-33.0); MCHC 32.9 % (32.0-36.0); MCV 103 fL (80-95); Monocytes % 7.8 %; Neutrophils % 75.6 %; Platelet Count 155 10^3/uL (130-400); RBC 3.44 10^6/uL (3.93-5.22); RDW 14.1 % (11.7-14.6); RDW-SD 52.3 fL; WBC 7.67 10^3/uL (4.4-10.8)
[2023-11-15 09:38] LABS: Prothrombin Time 10.3 sec (9.1-11.1)
[2023-11-15 09:46] LABS: ALT 37 U/L (14-59); AST 15 U/L (15-37); Albumin 3.5 g/dL (3.4-5.0); Alkaline Phosphatase 57 U/L (46-116); Anion Gap 10.6 mmol/L (3-11); BUN 29 mg/dL (7-18); Bilirubin, Total 0.48 mg/dL (0.2-1.0); CO2 20.4 mmol/L (21.0-32.0); CREATININE 1.4 mg/dL (0.55-1.02); Calcium 8.7 mg/dL (8.5-10.1); Chloride 111 mmol/L (98-107); Estimated GFR 43.88 (mL/min/1.73m2); Glucose 121 mg/dL (74-106); Magnesium 1.8 mg/dL (1.8-2.4); PHOSPHORUS 4.1 mg/dL (2.6-4.7); Potassium 4.4 mmol/L (3.5-5.1); Sodium 142 mmol/L (136-145); Total Protein 6.2 g/dL (6.4-8.2)
[2023-11-16 12:44] LABS: Tacrolimus 7.2 ng/mL (See Note)
[2023-11-17 15:07] LABS: CMV DNA Detect/Quant, P Undetected IU/mL (Undetected)
== END 2023-11-15 03:25 | disposition home or self-care (01) ==
PROVIDERS: Internal Medicine Gastroenterology; PCP Family Medicine; Visit Provider Nurse Practitioner
DX: Z94.4 Liver transplant status (principal); D84.9 Immunodeficiency, unspecified
CPT/HCPCS: 36415; 80053; 80197; 83735; 84100; 85025; 85610; 87496; 87497

== ENCOUNTER 2023-11-22 03:25 | Outpatient (CLI) | payer MEDICARE, MEDICAID, SELFPAY ==
[2023-11-22 09:30] LABS: Abs Immature Grans 0.05 10^3/uL (0.0-0.06); Absolute Basophil Count 0.02 10^3/uL (0.0-0.2); Absolute Eosinophil Count 0.07 10^3/uL (0.0-0.7); Absolute Lymphocyte Count 1.07 10^3/uL (1.2-3.4); Absolute Monocyte Count 0.04 10^3/uL (0.1-0.8); Basophils % 0.3 %; Eosinophils % 1.2 %; HCT 36.3 % (36.0-46.0); HGB 12.1 g/dL (11.2-15.7); Immature Grans % 0.9 %; Lymphocytes % 18.6 %; MCH 33.7 pg (27.0-33.0); MCHC 33.3 % (32.0-36.0); MCV 101 fL (80-95); MPV 9.3 fL (8.0-11.0); Monocytes % 0.7 %; Neutrophils % 78.3 %; Platelet Count 161 10^3/uL (130-400); RBC 3.59 10^6/uL (3.93-5.22); RDW 13.9 % (11.7-14.6); RDW-SD 51.2 fL; WBC 5.75 10^3/uL (4.4-10.8)
[2023-11-22 09:39] LABS: Prothrombin Time 9.6 sec (9.1-11.1)
[2023-11-22 10:08] LABS: ALT 47 U/L (14-59); AST 17 U/L (15-37); Albumin 3.3 g/dL (3.4-5.0); Alkaline Phosphatase 62 U/L (46-116); Anion Gap 8.8 mmol/L (3-11); BUN 36 mg/dL (7-18); Bilirubin, Total 0.44 mg/dL (0.2-1.0); CO2 20.2 mmol/L (21.0-32.0); CREATININE 1.5 mg/dL (0.55-1.02); Calcium 8.7 mg/dL (8.5-10.1); Chloride 110 mmol/L (98-107); Estimated GFR 40.14 (mL/min/1.73m2); Glucose 152 mg/dL (74-106); Magnesium 1.7 mg/dL (1.8-2.4); PHOSPHORUS 4.8 mg/dL (2.6-4.7); Potassium 4.6 mmol/L (3.5-5.1); Sodium 139 mmol/L (136-145); Total Protein 6.3 g/dL (6.4-8.2)
[2023-11-23 10:27] LABS: Tacrolimus 10.8 ng/mL (See Note)
[2023-11-24 23:29] LABS: CMV DNA Detect/Quant, P Undetected IU/mL (Undetected)
== END 2023-11-22 03:26 | disposition home or self-care (01) ==
PROVIDERS: PCP Family Medicine; Visit Provider Nurse Practitioner
DX: Z94.4 Liver transplant status (principal)
CPT/HCPCS: 36415; 80053; 80197; 83735; 84100; 85025; 85610; 87497

== ENCOUNTER 2023-11-29 02:55 | Outpatient (CLI) | payer MEDICARE, MEDICAID, SELFPAY ==
[2023-11-29 09:17] LABS: HCT 36.1 % (36.0-46.0); HGB 12.1 g/dL (11.2-15.7); MCH 33.2 pg (27.0-33.0); MCHC 33.5 % (32.0-36.0); MCV 99 fL (80-95); MPV 8.9 fL (8.0-11.0); Platelet Count 147 10^3/uL (130-400); RBC 3.64 10^6/uL (3.93-5.22); RDW 14.1 % (11.7-14.6); WBC 5.39 10^3/uL (4.4-10.8)
[2023-11-29 09:27] LABS: Prothrombin Time 10.2 sec (9.1-11.1)
[2023-11-29 09:38] LABS: Absolute Neutrophil Count 4.37 10^3/uL (1.2-6.7)
[2023-11-29 09:39] LABS: Absolute Basophil Count 0.05 10^3/uL (0.0-0.2); Absolute Eosinophil Count 0.05 10^3/uL (0.0-0.7); Absolute Lymphocyte Count 0.92 10^3/uL (1.2-3.4); Atypical Lymphocytes % 2 %; Diff Comment Manual Differential; RBC Morphology Normal
[2023-11-29 10:10] LABS: ALT 42 U/L (14-59); AST 18 U/L (15-37); Albumin 3.7 g/dL (3.4-5.0); Alkaline Phosphatase 66 U/L (46-116); Anion Gap 10.6 mmol/L (3-11); BUN 48 mg/dL (7-18); CO2 19.4 mmol/L (21.0-32.0); CREATININE 1.7 mg/dL (0.55-1.02); Calcium 9.4 mg/dL (8.5-10.1); Chloride 113 mmol/L (98-107); Estimated GFR 34.55 (mL/min/1.73m2); Glucose 172 mg/dL (74-106); Magnesium 1.9 mg/dL (1.8-2.4); PHOSPHORUS 4.9 mg/dL (2.6-4.7); Potassium 5.1 mmol/L (3.5-5.1); Sodium 143 mmol/L (136-145); Total Protein 6.7 g/dL (6.4-8.2)
[2023-11-30 10:43] LABS: Tacrolimus 9.7 ng/mL (See Note)
[2023-12-01 21:25] LABS: CMV DNA Detect/Quant, P Undetected IU/mL (Undetected)
== END 2023-11-29 02:56 | disposition home or self-care (01) ==
LOC: LBO 02:55
PROVIDERS: PCP Family Medicine; Visit Provider Internal Medicine Gastroenterology
DX: Z94.4 Liver transplant status (principal); D84.9 Immunodeficiency, unspecified
CPT/HCPCS: 36415; 80053; 80197; 83735; 84100; 85025; 85610; 87497

== ENCOUNTER 2023-12-13 02:35 | Outpatient (CLI) | payer MEDICARE, MEDICAID, SELFPAY ==
[2023-12-13 09:32] LABS: Abs Immature Grans 0.02 10^3/uL (0.0-0.06); Absolute Basophil Count 0.03 10^3/uL (0.0-0.2); Absolute Eosinophil Count 0.01 10^3/uL (0.0-0.7); Absolute Lymphocyte Count 0.68 10^3/uL (1.2-3.4); Absolute Neutrophil Count 1.86 10^3/uL (1.2-6.7); Basophils % 0.9 %; Eosinophils % 0.3 %; HCT 33.1 % (36.0-46.0); HGB 11.2 g/dL (11.2-15.7); Immature Grans % 0.6 %; Lymphocytes % 20.6 %; MCH 33.7 pg (27.0-33.0); MCHC 33.8 % (32.0-36.0); MCV 100 fL (80-95); MPV 9.7 fL (8.0-11.0); Monocytes % 21.2 %; Neutrophils % 56.4 %; Platelet Count 186 10^3/uL (130-400); RBC 3.32 10^6/uL (3.93-5.22); RDW 13.9 % (11.7-14.6); RDW-SD 50.9 fL
[2023-12-13 09:41] LABS: Prothrombin Time 10.1 sec (9.1-11.1)
[2023-12-13 09:48] LABS: ALT 52 U/L (14-59); AST 35 U/L (15-37); Alkaline Phosphatase 85 U/L (46-116); Anion Gap 8.2 mmol/L (3-11); BUN 26 mg/dL (7-18); Bilirubin, Total 0.58 mg/dL (0.2-1.0); CO2 22.8 mmol/L (21.0-32.0); CREATININE 1.4 mg/dL (0.55-1.02); Calcium 8.9 mg/dL (8.5-10.1); Chloride 111 mmol/L (98-107); Estimated GFR 43.61 (mL/min/1.73m2); Glucose 135 mg/dL (74-106); Magnesium 1.8 mg/dL (1.8-2.4); Potassium 5.1 mmol/L (3.5-5.1); Sodium 142 mmol/L (136-145); Total Protein 6.2 g/dL (6.4-8.2)
[2023-12-14 11:19] LABS: Tacrolimus 6.7 ng/mL (See Note)
[2023-12-15 15:21] LABS: CMV DNA Detect/Quant, P Undetected IU/mL (Undetected)
== END 2023-12-13 02:36 | disposition home or self-care (01) ==
PROVIDERS: Internal Medicine Gastroenterology; PCP Family Medicine; Visit Provider Nurse Practitioner
DX: Z94.4 Liver transplant status (principal)
CPT/HCPCS: 36415; 80053; 80197; 83735; 84100; 85025; 85610; 87497

== ENCOUNTER → 2023-12-23 15:17 | Outpatient (BNVA) | payer MEDICARE, MEDICAID, SELFPAY | PROVIDERS: PCP Family Medicine; Referring Provider Family Medicine; Visit Provider Podiatrist | DX: M25.572 Pain in left ankle and joints of left foot (principal); M19.072 Primary osteoarthritis, left ankle and foot | CPT/HCPCS: 29580; 99214; 29850 ==

== ENCOUNTER 2023-12-27 11:16 | Outpatient (CLI) | payer MEDICARE, MEDICAID, SELFPAY ==
[2023-12-27 09:30] LABS: Abs Immature Grans 0.13 10^3/uL (0.0-0.06); Absolute Basophil Count 0.07 10^3/uL (0.0-0.2); Absolute Eosinophil Count 0.09 10^3/uL (0.0-0.7); Absolute Lymphocyte Count 1.46 10^3/uL (1.2-3.4); Absolute Monocyte Count 0.63 10^3/uL (0.1-0.8); Absolute Neutrophil Count 5.77 10^3/uL (1.2-6.7); Basophils % 0.9 %; Eosinophils % 1.1 %; HCT 39.3 % (36.0-46.0); Immature Grans % 1.6 %; Lymphocytes % 17.9 %; MCH 32.7 pg (27.0-33.0); MCHC 33.1 % (32.0-36.0); MCV 99 fL (80-95); MPV 9.3 fL (8.0-11.0); Monocytes % 7.7 %; Neutrophils % 70.8 %; Platelet Count 142 10^3/uL (130-400); RBC 3.97 10^6/uL (3.93-5.22); RDW 12.9 % (11.7-14.6); RDW-SD 47.4 fL; WBC 8.15 10^3/uL (4.4-10.8)
[2023-12-27 09:45] LABS: Prothrombin Time 9.9 sec (9.1-11.1)
[2023-12-27 10:35] LABS: ALT 66 U/L (14-59); AST 35 U/L (15-37); Albumin 3.8 g/dL (3.4-5.0); Alkaline Phosphatase 124 U/L (46-116); Anion Gap 7.6 mmol/L (3-11); BUN 51 mg/dL (7-18); Bilirubin, Total 0.37 mg/dL (0.2-1.0); CO2 18.4 mmol/L (21.0-32.0); CREATININE 2.1 mg/dL (0.55-1.02); Calcium 9.6 mg/dL (8.5-10.1); Chloride 113 mmol/L (98-107); Estimated GFR 26.81 (mL/min/1.73m2); Glucose 125 mg/dL (74-106); Magnesium 2.2 mg/dL (1.8-2.4); PHOSPHORUS 5.8 mg/dL (2.6-4.7); Potassium 5.3 mmol/L (3.5-5.1); Sodium 139 mmol/L (136-145); Total Protein 7.4 g/dL (6.4-8.2)
[2023-12-28 10:11] LABS: Tacrolimus 9.2 ng/mL (See Note)
[2023-12-29 13:03] LABS: CMV DNA Detect/Quant, P Undetected IU/mL (Undetected)
== END 2023-12-27 11:17 | disposition home or self-care (01) ==
LOC: LBO 11:17
PROVIDERS: PCP Family Medicine; Visit Provider Nurse Practitioner
DX: Z94.4 Liver transplant status (principal)
CPT/HCPCS: 36415; 80053; 80197; 83735; 84100; 85025; 85610; 87497

== ENCOUNTER 2024-01-10 11:53 | Outpatient (CLI) | payer MEDICARE, MEDICAID, SELFPAY ==
[2024-01-10 09:31] LABS: Abs Immature Grans 0.04 10^3/uL (0.0-0.06); Absolute Basophil Count 0.03 10^3/uL (0.0-0.2); Absolute Eosinophil Count 0.15 10^3/uL (0.0-0.7); Absolute Lymphocyte Count 0.78 10^3/uL (1.2-3.4); Absolute Monocyte Count 0.28 10^3/uL (0.1-0.8); Absolute Neutrophil Count 4.11 10^3/uL (1.2-6.7); Basophils % 0.6 %; Eosinophils % 2.8 %; HCT 32.8 % (36.0-46.0); Immature Grans % 0.7 %; Lymphocytes % 14.5 %; MCHC 33.5 % (32.0-36.0); MCV 99 fL (80-95); MPV 9.1 fL (8.0-11.0); Monocytes % 5.2 %; Neutrophils % 76.2 %; Platelet Count 121 10^3/uL (130-400); RBC 3.33 10^6/uL (3.93-5.22); RDW 12.7 % (11.7-14.6); RDW-SD 45.3 fL; WBC 5.39 10^3/uL (4.4-10.8)
[2024-01-10 10:00] LABS: ALT 49 U/L (14-59); AST 32 U/L (15-37); Albumin 3.3 g/dL (3.4-5.0); Alkaline Phosphatase 98 U/L (46-116); Anion Gap 11.5 mmol/L (3-11); BUN 28 mg/dL (7-18); Bilirubin, Total 0.37 mg/dL (0.2-1.0); CO2 18.5 mmol/L (21.0-32.0); CREATININE 1.6 mg/dL (0.55-1.02); Calcium 9.2 mg/dL (8.5-10.1); Chloride 115 mmol/L (98-107); Estimated GFR 37.15 (mL/min/1.73m2); Glucose 158 mg/dL (74-106); Magnesium 1.8 mg/dL (1.8-2.4); PHOSPHORUS 3.4 mg/dL (2.6-4.7); Potassium 4.1 mmol/L (3.5-5.1); Sodium 145 mmol/L (136-145); Total Protein 6.2 g/dL (6.4-8.2)
[2024-01-10 10:10] LABS: Ferritin 163 ng/mL (8-252); Vitamin D 25 Total 14.3 ng/mL (30-100)
[2024-01-11 11:29] LABS: Tacrolimus 3.3 ng/mL (See Note)
[2024-01-12 15:41] LABS: Cystatin C, S 1.93 mg/L; eGFR by Cystatin C 31 mL/min/BSA (>60)
[2024-01-12 19:15] LABS: CMV DNA Detect/Quant, P Undetected IU/mL (Undetected)
== END 2024-01-10 11:54 | disposition home or self-care (01) ==
LOC: LBO 11:54
PROVIDERS: PCP Family Medicine; Visit Provider Internal Medicine Gastroenterology
DX: Z79.899 Other long term (current) drug therapy (principal); L65.9 Nonscarring hair loss, unspecified; Z94.4 Liver transplant status
CPT/HCPCS: 36415; 80053; 82306; 82610; 80197; 82728; 83735; 84100; 85025; 87497

== ENCOUNTER 2024-01-24 13:01 | Outpatient (CLI) | payer MEDICARE, MEDICAID, SELFPAY ==
[2024-01-24 09:32] LABS: Abs Immature Grans 0.01 10^3/uL (0.0-0.06); Absolute Basophil Count 0.03 10^3/uL (0.0-0.2); Absolute Eosinophil Count 0.13 10^3/uL (0.0-0.7); Absolute Lymphocyte Count 0.81 10^3/uL (1.2-3.4); Absolute Monocyte Count 0.27 10^3/uL (0.1-0.8); Absolute Neutrophil Count 3.29 10^3/uL (1.2-6.7); Basophils % 0.7 %; Eosinophils % 2.9 %; HCT 36.3 % (36.0-46.0); HGB 11.6 g/dL (11.2-15.7); Immature Grans % 0.2 %; Lymphocytes % 17.8 %; MCV 100 fL (80-95); MPV 9.1 fL (8.0-11.0); Monocytes % 5.9 %; Neutrophils % 72.5 %; Platelet Count 178 10^3/uL (130-400); RBC 3.63 10^6/uL (3.93-5.22); RDW 12.8 % (11.7-14.6); WBC 4.54 10^3/uL (4.4-10.8)
[2024-01-24 09:58] LABS: ALT 88 U/L (14-59); AST 49 U/L (15-37); Albumin 3.4 g/dL (3.4-5.0); Alkaline Phosphatase 155 U/L (46-116); Anion Gap 10.1 mmol/L (3-11); BUN 18 mg/dL (7-18); Bilirubin, Total 0.46 mg/dL (0.2-1.0); CO2 22.9 mmol/L (21.0-32.0); CREATININE 1.3 mg/dL (0.55-1.02); Calcium 8.9 mg/dL (8.5-10.1); Chloride 112 mmol/L (98-107); Estimated GFR 47.66 (mL/min/1.73m2); Glucose 124 mg/dL (74-106); Magnesium 1.9 mg/dL (1.8-2.4); PHOSPHORUS 3.5 mg/dL (2.6-4.7); Potassium 4.7 mmol/L (3.5-5.1); Sodium 145 mmol/L (136-145); Total Protein 6.6 g/dL (6.4-8.2)
[2024-01-25 10:52] LABS: Tacrolimus 2.7 ng/mL (See Note)
[2024-01-26 13:40] LABS: CMV DNA Detect/Quant, P Undetected IU/mL (Undetected)
[2024-01-26 15:03] LABS: Cystatin C, S 1.97 mg/L; eGFR by Cystatin C 30 mL/min/BSA (>60)
== END 2024-01-24 13:02 | disposition home or self-care (01) ==
LOC: LBO 13:06
PROVIDERS: PCP Family Medicine; Visit Provider Internal Medicine Gastroenterology
DX: Z79.899 Other long term (current) drug therapy (principal); Z94.4 Liver transplant status
CPT/HCPCS: 36415; 80053; 82610; 80197; 83735; 84100; 85025; 87497

== ENCOUNTER 2024-02-07 02:25 | Outpatient (CLI) | payer MEDICARE, MEDICAID, SELFPAY ==
[2024-02-07 09:18] LABS: Abs Immature Grans 0.03 10^3/uL (0.0-0.06); Absolute Basophil Count 0.02 10^3/uL (0.0-0.2); Absolute Eosinophil Count 0.08 10^3/uL (0.0-0.7); Absolute Lymphocyte Count 0.99 10^3/uL (1.2-3.4); Absolute Monocyte Count 0.33 10^3/uL (0.1-0.8); Absolute Neutrophil Count 3.54 10^3/uL (1.2-6.7); Basophils % 0.4 %; Eosinophils % 1.6 %; HCT 37.9 % (36.0-46.0); HGB 12.4 g/dL (11.2-15.7); Immature Grans % 0.6 %; Lymphocytes % 19.8 %; MCH 31.6 pg (27.0-33.0); MCHC 32.7 % (32.0-36.0); MCV 96 fL (80-95); MPV 9.1 fL (8.0-11.0); Monocytes % 6.6 %; Platelet Count 162 10^3/uL (130-400); RBC 3.93 10^6/uL (3.93-5.22); RDW 12.4 % (11.7-14.6); RDW-SD 44.1 fL; WBC 4.99 10^3/uL (4.4-10.8)
[2024-02-07 10:05] LABS: ALT 89 U/L (14-59); AST 56 U/L (15-37); Albumin 3.8 g/dL (3.4-5.0); Alkaline Phosphatase 167 U/L (46-116); BUN 38 mg/dL (7-18); Bilirubin, Total 0.56 mg/dL (0.2-1.0); CREATININE 1.7 mg/dL (0.55-1.02); Calcium 9.4 mg/dL (8.5-10.1); Chloride 111 mmol/L (98-107); Estimated GFR 34.55 (mL/min/1.73m2); Glucose 128 mg/dL (74-106); Magnesium 1.9 mg/dL (1.8-2.4); PHOSPHORUS 4.5 mg/dL (2.6-4.7); Potassium 4.8 mmol/L (3.5-5.1); Sodium 143 mmol/L (136-145)
[2024-02-08 12:31] LABS: Tacrolimus 5.3 ng/mL (See Note)
[2024-02-08 21:30] LABS: Cystatin C, S 2.33 mg/L; eGFR by Cystatin C 24 mL/min/BSA (>60)
[2024-02-10 13:46] LABS: CMV DNA Detect/Quant, P Undetected IU/mL (Undetected)
== END 2024-02-07 02:26 | disposition home or self-care (01) ==
LOC: LBO 02:25
PROVIDERS: PCP Family Medicine; Visit Provider Internal Medicine Gastroenterology
DX: Z79.899 Other long term (current) drug therapy (principal); Z94.4 Liver transplant status
CPT/HCPCS: 36415; 80053; 82610; 80197; 83735; 84100; 85025; 87497

== ENCOUNTER 2024-02-09 03:43 | Outpatient (CLI) | payer MEDICARE, MEDICAID, SELFPAY ==
--- NOTE | 2024-02-09 10:28 | DI.RAD_ITS ---
Exam(s) XR FOOT LT COMPLETE EXAM: XR FOOT LT COMPLETE CLINICAL HISTORY: midfoot pain,M25.572. TECHNIQUE: 2D digital imaging was performed. COMPARISON: CR XR FOOT LT COMPLETE from 10/12/2023 FINDINGS: 3 views No evidence of fracture or diastasis of the Lisfranc joint. Bone density normal. No osseous lesions . Great toe metatarsophalangeal joint appears unremarkable as do the other MTP joints. No pes planus. Small enthesophyte noted on the posterior calcaneus Achilles insertion site. No sign ificant inferior calcaneal spur. No evidence of osseous tarsal coalition IMPRESSION: No acute osseous findings in the foot. DATA REPOSITORY: RADIATION DOSE DELIVERED:
== END 2024-02-09 04:03 ==
LOC: DI 03:43
PROVIDERS: PCP Family Medicine; Visit Provider Podiatrist
DX: M25.572 Pain in left ankle and joints of left foot (principal)
CPT/HCPCS: 64455; 73630

== ENCOUNTER 2024-02-21 02:38 | Outpatient (CLI) | payer MEDICARE, MEDICAID, SELFPAY ==
[2024-02-21 09:28] LABS: Abs Immature Grans 0.05 10^3/uL (0.0-0.06); Absolute Basophil Count 0.03 10^3/uL (0.0-0.2); Absolute Eosinophil Count 0.09 10^3/uL (0.0-0.7); Absolute Lymphocyte Count 0.96 10^3/uL (1.2-3.4); Absolute Monocyte Count 0.32 10^3/uL (0.1-0.8); Absolute Neutrophil Count 3.72 10^3/uL (1.2-6.7); Basophils % 0.6 %; Eosinophils % 1.7 %; HCT 35.5 % (36.0-46.0); HGB 12.2 g/dL (11.2-15.7); Lymphocytes % 18.6 %; MCH 31.9 pg (27.0-33.0); MCHC 34.4 % (32.0-36.0); MCV 93 fL (80-95); MPV 9.7 fL (8.0-11.0); Monocytes % 6.2 %; Neutrophils % 71.9 %; Platelet Count 166 10^3/uL (130-400); RBC 3.83 10^6/uL (3.93-5.22); RDW 12.5 % (11.7-14.6); RDW-SD 42.5 fL; WBC 5.17 10^3/uL (4.4-10.8)
[2024-02-21 09:56] LABS: ALT 83 U/L (14-59); AST 50 U/L (15-37); Albumin 3.6 g/dL (3.4-5.0); Alkaline Phosphatase 130 U/L (46-116); Anion Gap 10.9 mmol/L (3-11); BUN 29 mg/dL (7-18); CO2 23.1 mmol/L (21.0-32.0); CREATININE 1.5 mg/dL (0.55-1.02); Calcium 9.1 mg/dL (8.5-10.1); Chloride 109 mmol/L (98-107); Estimated GFR 40.14 (mL/min/1.73m2); Glucose 119 mg/dL (74-106); Magnesium 1.8 mg/dL (1.8-2.4); PHOSPHORUS 4.1 mg/dL (2.6-4.7); Potassium 4.6 mmol/L (3.5-5.1); Sodium 143 mmol/L (136-145); Total Protein 6.7 g/dL (6.4-8.2)
[2024-02-22 13:24] LABS: Tacrolimus 4.5 ng/mL (See Note)
[2024-02-22 18:09] LABS: Cystatin C, S 2.14 mg/L; eGFR by Cystatin C 27 mL/min/BSA (>60)
[2024-02-24 12:59] LABS: CMV DNA Detect/Quant, P Undetected IU/mL (Undetected)
== END 2024-02-21 02:39 | disposition home or self-care (01) ==
LOC: LBO 02:39
PROVIDERS: PCP Family Medicine; Visit Provider Internal Medicine Gastroenterology
DX: Z94.4 Liver transplant status (principal)
CPT/HCPCS: 36415; 80053; 82610; 80197; 83735; 84100; 85025; 87497

== ENCOUNTER 2024-03-06 03:01 | Outpatient (CLI) | payer MEDICARE, MEDICAID, SELFPAY ==
[2024-03-06 09:11] LABS: Abs Immature Grans 0.03 10^3/uL (0.0-0.06); Absolute Basophil Count 0.02 10^3/uL (0.0-0.2); Absolute Eosinophil Count 0.11 10^3/uL (0.0-0.7); Absolute Lymphocyte Count 1.39 10^3/uL (1.2-3.4); Absolute Monocyte Count 0.61 10^3/uL (0.1-0.8); Absolute Neutrophil Count 5.02 10^3/uL (1.2-6.7); Basophils % 0.3 %; Eosinophils % 1.5 %; HCT 41.2 % (36.0-46.0); Immature Grans % 0.4 %; Lymphocytes % 19.4 %; MCH 30.9 pg (27.0-33.0); MCV 91 fL (80-95); MPV 9.8 fL (8.0-11.0); Monocytes % 8.5 %; Neutrophils % 69.9 %; Platelet Count 187 10^3/uL (130-400); RBC 4.53 10^6/uL (3.93-5.22); RDW 12.2 % (11.7-14.6); RDW-SD 40.1 fL; WBC 7.18 10^3/uL (4.4-10.8)
[2024-03-06 09:29] LABS: ALT 66 U/L (14-59); AST 34 U/L (15-37); Albumin 4.2 g/dL (3.4-5.0); Alkaline Phosphatase 139 U/L (46-116); Anion Gap 13.7 mmol/L (3-11); BUN 71 mg/dL (7-18); CO2 20.3 mmol/L (21.0-32.0); CREATININE 3.4 mg/dL (0.55-1.02); Calcium 9.7 mg/dL (8.5-10.1); Chloride 104 mmol/L (98-107); Estimated GFR 15.04 (mL/min/1.73m2); Glucose 152 mg/dL (74-106); Magnesium 2.5 mg/dL (1.8-2.4); Potassium 4.4 mmol/L (3.5-5.1); Sodium 138 mmol/L (136-145); Total Protein 7.5 g/dL (6.4-8.2)
[2024-03-07 11:33] LABS: Tacrolimus 5.6 ng/mL (See Note)
[2024-03-08 16:31] LABS: Cystatin C, S 3.09 mg/L; eGFR by Cystatin C 16 mL/min/BSA (>60)
[2024-03-08 22:00] LABS: CMV DNA Detect/Quant, P Undetected IU/mL (Undetected)
== END 2024-03-06 03:02 | disposition home or self-care (01) ==
LOC: LBO 03:02
PROVIDERS: PCP Family Medicine; Visit Provider Internal Medicine Gastroenterology
DX: Z79.899 Other long term (current) drug therapy (principal); Z94.4 Liver transplant status
CPT/HCPCS: 36415; 80053; 82610; 80197; 83735; 84100; 85025; 87497

== ENCOUNTER 2024-03-11 19:44 | Inpatient (IN) | payer MEDICARE, MEDICAID, SELFPAY ==
[2024-03-11] VITALS (40 sets, daily range): BP systolic 53–135; BP diastolic 28–88; PULSE 70–91; RESP 12–21; TEMP 36.4; O2SAT 96–100
--- NOTE | 2024-03-11 19:30 | RT.EKG_ITS ---
APPROVED REPORT Exam: Resting ECG Reason for Exam: syncope Patient Location: E HR:78 bpm ECG Measurements Heart Rate 78 AXIS MO 167 P 76 QRSd 93 QRS -18 QT 376 T 96 QTc 429 Conclusion Sinus rhythm, rate 78 No interval abnormalities No STEMI No significant changes from priors
[2024-03-11 20:12] LABS: Abs Immature Grans 0.11 10^3/uL (0.0-0.06); Absolute Basophil Count 0.04 10^3/uL (0.0-0.2); Absolute Eosinophil Count 0.07 10^3/uL (0.0-0.7); Absolute Lymphocyte Count 0.69 10^3/uL (1.2-3.4); Basophils % 0.3 %; Eosinophils % 0.5 %; HGB 14.1 g/dL (11.2-15.7); Immature Grans % 0.8 %; Lymphocytes % 4.8 %; MCH 31.3 pg (27.0-33.0); MCHC 35.3 % (32.0-36.0); MCV 89 fL (80-95); Monocytes % 5.5 %; Neutrophils % 88.1 %; Platelet Count 182 10^3/uL (130-400); RBC 4.51 10^6/uL (3.93-5.22); RDW 12.1 % (11.7-14.6); RDW-SD 39.3 fL
[2024-03-11 20:18] LABS: Absolute Monocyte Count 0.79 10^3/uL (0.1-0.8)
[2024-03-11 20:31] LABS: ALT 60 U/L (14-59); AST 36 U/L (15-37); Albumin 4.1 g/dL (3.4-5.0); Alkaline Phosphatase 147 U/L (46-116); Anion Gap 10.5 mmol/L (3-11); BUN 79 mg/dL (7-18); Bilirubin, Total 0.36 mg/dL (0.2-1.0); CO2 24.5 mmol/L (21.0-32.0); CREATININE 3.4 mg/dL (0.55-1.02); Calcium 9.3 mg/dL (8.5-10.1); Chloride 103 mmol/L (98-107); Estimated GFR 15.04 (mL/min/1.73m2); Glucose 203 mg/dL (74-106); Magnesium 2.4 mg/dL (1.8-2.4); Potassium 3.9 mmol/L (3.5-5.1); Sodium 138 mmol/L (136-145); Total Protein 7.4 g/dL (6.4-8.2); Troponin I 9 ng/L (<or=51)
[2024-03-11 20:45] LABS: COVID-19 PCR Negative (Negative); Influenza A PCR Negative (Negative); Influenza B PCR Negative (Negative); RSV PCR Negative (Negative)
[2024-03-11 20:51] LABS: Source Nasopharynx
--- NOTE | 2024-03-11 21:16 | W.ED.GENAD ---
Discharge Plan Discharge Details Chief Complaint: GenMedical Primary Care Provider: Deandra Hutchins ED Provider: Dania Cartwright Home Meds and New Rx's Prescriptions: No Action acyclovir 800 mg tablet 800 mg PO BID atorvastatin 20 mg tablet 20 mg PO DAILY calcium carbonate-vitamin D3 600 mg-20 mcg (800 unit) tablet 1 tab PO DAILY ergocalciferol (vitamin D2) 1,250 mcg (50,000 unit) capsule 1,250 mcg PO QWEEK Eliquis 5 mg tablet 5 mg PO BID Glucerna Snack Shake Liquid PO midodrine 5 mg tablet 5 mg PO TID Rx Instructions: do not give last dose of day after 6PM or within 4 hrs of bedtime mycophenolate mofetil 250 mg capsule 1,000 mg PO BID oxycodone 5 mg capsule 5 mg PO BID PRN acetaminophen 500 mg tablet 500 mg PO Q6H PRN prednisolone 5 mg tablet 5 mg PO DAILY sodium bicarbonate 650 mg tablet 650 mg PO BID sulfamethoxazole-trimethoprim 800-160 mg tablet 1 tab PO BID Rx Instructions: take 1 tablet by mouth 3 times a week tacrolimus 1 mg capsule 1 mg PO BID Rx Instructions: take 3 capsules by mouth every morning and take 3 capsules by mouth every evening vitamin A acetate 3,000 mcg (10,000 unit) tablet, sublingual 3,000 mcg PO DAILY levalbuterol tartrate [Xopenex HFA] 45 mcg/actuation HFA aerosol inhaler 2 inh inhalation .Q4-6HR metformin 500 mg tablet 1,000 mg PO BID acetaminophen [Mapap Extra Strength] 500 mg tablet 500 - 1,000 mg PO PRN PRN diclofenac sodium 1 % Gel 2 g topical QID PRN PRNQty: 100 0RF Rx Instructions: apply to Left knee folic acid 1 mg Tablet 1 mg PO DAILY Qty: 30 0RF magnesium chloride [Mag 64] 64 mg Tablet,Delayed Release (Dr/Ec) 128 mg PO BID Qty: 120 0RF torsemide 20 mg Tablet 20 mg PO DAILY Qty: 30 0RF spironolactone 100 mg tablet 100 mg PO DAILY Qty: 30 0RF (DME) Dexcom G7 Sensor Device See Rx Instructions .Route Qty: 3 0RF Rx Instructions: For blood sugar monitoring in am, before meals, and at bedtime (DME) pen needle, diabetic [Sure-Fine Pen Maceo] 31 gauge x 5/16 needle See Rx Instructions .Route Qty: 200 1RF Rx Instructions: For lantus injections BID and aspart AC/HS (DME) Dexcom G7 [employer] Misc See Rx Instructions .Route Qty: 1 0RF Rx Instructions: For blood sugar monitoring AC/HS (DME) lancets 30 gauge misc See Rx Instructions .Route Qty: 200 0RF Rx Instructions: As directed (DME) 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 meter Kit See Rx Instructions .Route Qty: 1 0RF Rx Instructions: glucometer for blood sugar checks AC/HS (DME) Blood Glucose Test Strip See Rx Instructions .Route Qty: 200 0RF Rx Instructions: For blood sugar checks AC&HS insulin aspart U-100 [Novolog FlexPen U-100 Insulin] 100 unit/mL (3 mL) insulin pen 1 sliding scale dose subcut USEASDIRECTD MDD 100 units Qty: 15 0RF Rx Instructions: Take AC and HS. Mealtime: take 2 units per 10 grams of carbs consumed, up to 20 units per meal. In addition, take 2 units for every 50 points that blood sugar is over 150, up to 10 units AC/HS. Levemir FlexPen 100 unit/mL (3 mL) insulin pen 15 unit subcut DAILY ondansetron 4 mg tablet,disintegrating 4 mg PO Q8H PRN (Reason: nausea and vomiting) Qty: 30 0RF pantoprazole 40 mg tablet,delayed release (DR/EC) 40 mg PO DAILY HPI General Mode of arrival: EMS. Date/Time Provider Initiated Documentation: 03/11/24 19:54. Limitations to Documentation: no limitations. Information obtained by: patient, EMS and old records reviewed. HPI Narrative: HPI: This is a 58-year-old female patient with a past medical history significant for ostomy due to colon cancer in her 30s, insulin-dependent diabetes, recent liver transplant for Solorzano cirrhosis in July 2023, history of renal dysfunction, not on hemodialysis, who is presenting for evaluation of near syncope. She reports that she for the last several days has felt very dizzy when she stands up, states that she feels weakness in her legs, lightheadedness and blurry vision. She is typically able to sit back down quickly enough that she does not lose consciousness. Today she was on the toilet, and had the same symptoms when she tried to stand up. She sat down on the toilet for some time until it passed, and attempted to get back to her couch but had recurrence of the symptoms and called 911. EMS noted the patient to be hemodynamically appropriate, with a normal blood glucose. She reports that she has not had any recent changes in her medications, has been eating and drinking typically but has noted some increased ostomy output. She denies bloody stools, recent hospitalization, or recent antibiotic use beyond her baseline prophylaxis. She has not had fevers, cough or shortness of breath, chest pain, abdominal pain, dysuria. No recent changes to medications. Exam: Gen: Awake and alert, in no apparent distress HEENT: Non-icteric sclera Neck: Supple Lungs: No apparent respiratory distress, normal respiratory effort. Lung sounds clear and equal bilaterally CV: Appears well perfused, heart with regular rate and rhythm, strong distal pulses Abdomen: Non-distended, soft, nontender. Ostomy in place without surrounding skin changes MSK: Moves 4 extremities without apparent limitation in ROM. No peripheral edema appreciated Skin: Visualized skin without rashes, cyanosis. Neuro: Normal Gait, cranial nerves II through XII intact and symmetrical bilaterally, full strength and sensation x 4 extremities. Speaks in full, clear sentences. Psych: Appropriate for situation. MDM: This is a 58-year-old female patient presenting for evaluation of near syncope. My differential includes but is not limited to orthostasis, vasovagal syndrome, dehydration, anemia, metabolic derangement, kidney injury, liver disease, medication effect, transplant rejection with certainly considered that the patient has been compliant with her medications. She is not currently taking steroids and has not for a great while, decreasing my concern for adrenal insufficiency. Reassuringly, she did not sustain any trauma, and did not actually lose consciousness. She has not had any infectious symptoms, though I did consider pneumonia, viral upper respiratory infection, UTI. Will obtain EKG, laboratory studies to include CBC, CMP, magnesium, troponin, and will obtain a chest x-ray and urinalysis. I will provide the patient with a liter of IV fluids for her symptoms of near syncope. ED Course: EKG obtained, showing a sinus rhythm without evidence of ischemia, interval abnormality, or ectopy. I reviewed the patient's laboratory studies, which showed a leukocytosis to 14, no anemia or thrombocytopenia, chemistry panel with evidence of baseline renal dysfunction with a BUN of 79 and creatinine of 3.4. No electrolyte derangements, glucose 203, no evidence of new liver dysfunction. Troponin was negative, and the UA does show some evidence for infection including leukocyte esterase, pyuria and few bacteria. COVID and influenza swab was negative, x-ray was independently interpreted by myself and shows no evidence of consolidation concerning for pneumonia. Orthostatic vital signs were obtained, and the patient did have a decrease in her blood pressure to the 50s systolic with standing, and was symptomatic at the time. I provided her with a dose of ceftriaxone and obtained blood cultures, and reach out to the hospitalist who is graciously accepted this patient for admission to their service for ongoing workup and management of her orthostatic hypotension. I am most concerned that this is due to her increased ostomy output plus her urinary tract action. She remained hemodynamically improved in supine/Semi-Diggs positioning while under my care. Transferred to the hospital service without incident. Dania Cartwright MD Related Data Home Medications ?Medication ?Instructions ?Recorded ?Confirmed levalbuterol tartrate 45 2 inh inhalation .Q4-6HR 01/22/20 03/11/24 mcg/actuation aerosol inhaler (Xopenex HFA) metformin 500 mg tablet 1,000 mg PO BID 06/17/20 03/11/24 blood sugar diagnostic (Blood #200 ea 09/09/22 03/11/24 Glucose Test strips) 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 meter #1 ea 09/09/22 03/11/24 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 meter,continuous #1 ea 09/09/22 03/11/24 (Dexcom G7 [employer]) 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 sensor (Dexcom G7 #3 ea 09/09/22 03/11/24 Sensor device) diclofenac sodium 1 % topical gel 2 g topical QID PRN PRN #100 grams 09/09/22 03/11/24 folic acid 1 mg tablet 1 mg PO DAILY #30 tabs 09/09/22 03/11/24 insulin aspart U-100 100 unit/mL 1 sliding scale dose subcut 09/09/22 03/11/24 (3 mL) subcutaneous pen (Novolog USEASDIRECTD #15 mL FlexPen U-100 Insulin aspart) lancets 30 gauge #200 ea 09/09/22 03/11/24 magnesium chloride 64 mg 128 mg (2 x 64 mg) PO BID #120 tabs 09/09/22 03/11/24 (magnesium chloride) tablet,delayed release (Mag 64) pen needle, diabetic 31 gauge x #200 ea 09/09/22 03/11/24 5/16 (Sure-Fine Pen Maceo) spironolactone 100 mg tablet 100 mg PO DAILY #30 tabs 09/09/22 03/11/24 torsemide 20 mg tablet 20 mg PO DAILY #30 tabs 09/09/22 03/11/24 insulin detemir U-100 100 unit/mL 15 unit subcut DAILY 09/18/22 03/11/24 (3 mL) subcutaneous pen (Levemir FlexPen) ondansetron 4 mg disintegrating 4 mg PO Q8H PRN nausea and 07/15/23 03/11/24 tablet vomiting #30 tabs acetaminophen 500 mg tablet 500 mg PO Q6H PRN 11/22/23 03/11/24 acetaminophen 500 mg tablet (Mapap 500 - 1,000 mg PO PRN PRN 11/22/23 03/11/24 Extra Strength) acyclovir 800 mg tablet 800 mg PO BID 11/22/23 03/11/24 apixaban 5 mg tablet (Eliquis) 5 mg PO BID 11/22/23 03/11/24 atorvastatin 20 mg tablet 20 mg PO DAILY 11/22/23 03/11/24 calcium 600 mg (as 1 tab PO DAILY 11/22/23 03/11/24 carbonate)-vitamin D3 20 mcg (800 unit) tablet ergocalciferol (vitamin D2) 1,250 1,250 mcg PO QWEEK 11/22/23 03/11/24 mcg (50,000 unit) capsule midodrine 5 mg tablet 5 mg PO TID 11/22/23 03/11/24 mycophenolate mofetil 250 mg 1,000 mg PO BID 11/22/23 03/11/24 capsule nut.tx.gluc.intol,lac-free,soy ml PO 11/22/23 02/09/24 (Glucerna Snack Shake oral liquid) oxycodone 5 mg capsule 5 mg PO BID PRN 11/22/23 03/11/24 prednisolone 5 mg tablet 5 mg PO DAILY 11/22/23 03/11/24 sodium bicarbonate 650 mg tablet 650 mg PO BID 11/22/23 03/11/24 sulfamethoxazole 800 1 tab PO BID 11/22/23 03/11/24 mg-trimethoprim 160 mg tablet tacrolimus 1 mg capsule, 1 mg PO BID 11/22/23 03/11/24 immediate-release vitamin A acetate 3,000 mcg 3,000 mcg PO DAILY 11/22/23 03/11/24 (10,000 unit) sublingual tablet pantoprazole 40 mg tablet,delayed 40 mg PO DAILY 03/11/24 03/11/24 release Previous Rx's ?Medication ?Instructions ?Recorded blood sugar diagnostic (Blood #200 ea 09/09/22 Glucose Test strips) 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 meter #1 ea 09/09/22 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 meter,continuous #1 ea 09/09/22 (Dexcom G7 [employer]) 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 sensor (Dexcom G7 #3 ea 09/09/22 Sensor device) diclofenac sodium 1 % topical gel 2 g topical QID PRN PRN #100 grams 09/09/22 folic acid 1 mg tablet 1 mg PO DAILY #30 tabs 09/09/22 insulin aspart U-100 100 unit/mL 1 sliding scale dose subcut 09/09/22 (3 mL) subcutaneous pen (Novolog USEASDIRECTD #15 mL FlexPen U-100 Insulin aspart) lancets 30 gauge #200 ea 09/09/22 magnesium chloride 64 mg 128 mg (2 x 64 mg) PO BID #120 tabs 09/09/22 (magnesium chloride) tablet,delayed release (Mag 64) pen needle, diabetic 31 gauge x #200 ea 09/09/22 5/16 (Sure-Fine Pen Maceo) spironolactone 100 mg tablet 100 mg PO DAILY #30 tabs 09/09/22 torsemide 20 mg tablet 20 mg PO DAILY #30 tabs 09/09/22 ondansetron 4 mg disintegrating 4 mg PO Q8H PRN nausea and 07/15/23 tablet vomiting #30 tabs Allergies Allergy/AdvReac Type Severity Reaction Status Date / Time codeine AdvReac Unknown unable to Verified 03/11/24 19:56 take related to colon removal ibuprofen AdvReac Unknown unable to Verified 03/11/24 19:56 take related to colon removal General Stated Complaint: GenMedical WILL: 3 Course Vital Signs Vital signs: Vital Signs Temperature 36.4 C L 03/11/24 19:46 Pulse 88 01/18/25 19:46 Respiratory Rate 18 03/11/24 19:46 Blood Pressure 121/88 03/11/24 19:46 Pulse Oximetry 98 03/11/24 19:46 Temperature 36.4 C L 03/11/24 19:55 Temperature Source Temporal Artery Scan 03/11/24 19:55 Pulse 88 03/11/24 19:55 Respiratory Rate 18 03/11/24 20:58 Respiratory Effort Normal, Non-Labored 03/11/24 20:58 Respiratory Depth Normal 03/11/24 20:58 Respiratory Pattern Normal 03/11/24 20:58 Blood Pressure 121/88 03/11/24 19:55 Blood Pressure Position Sitting 03/11/24 19:55 Pulse Oximetry 98 03/11/24 19:55 Oxygen Delivery Method Room Air 03/11/24 19:55 Oxygen Flow Rate 0 03/11/24 19:55 Pain Level 0 03/11/24 19:55 Lab/Test Results Lab/Test Results: Laboratory Tests Range/Units 03/11/24 03/11/24 03/11/24 20:00 20:05 20:12 WBC (4.4-10.8) 10^3/uL 14.30 H RBC (3.93-5.22) 10^6/uL 4.51 Hgb (11.2-15.7) g/dL 14.1 Hct (36.0-46.0) % 40.0 MCV (80-95) fL 89 MCH (27.0-33.0) pg 31.3 MCHC (32.0-36.0) % 35.3 RDW (11.7-14.6) % 12.1 Plt Count (130-400) 10^3/uL 182 MPV (8.0-11.0) fL 10.0 Immature Gran % % 0.8 Neutrophils % % 88.1 Lymphocytes % % 4.8 Monocytes % % 5.5 Eosinophils % % 0.5 Basophils % % 0.3 Nucleated RBC % (0.0-0.3) % 0.0 Absolute Neutrophils (1.2-6.7) 10^3/uL 12.60 H Absolute Lymphocytes (1.2-3.4) 10^3/uL 0.69 L Absolute Monocytes (0.1-0.8) 10^3/uL 0.79 Absolute Eosinophils (0.0-0.7) 10^3/uL 0.07 Absolute Basophils (0.0-0.2) 10^3/uL 0.04 PT (9.1-11.1) sec 10.0 INR (0.9-1.1) 1.0 Sodium (136-145) mmol/L 138 Potassium (3.5-5.1) mmol/L 3.9 Chloride (98-107) mmol/L 103 Carbon Dioxide (21.0-32.0) mmol/L 24.5 Anion Gap (3-11) mmol/L 10.5 BUN (7-18) mg/dL 79 H Creatinine (0.55-1.02) mg/dL 3.4 H Est GFR (CKD-EPI 2020) (mL/min/1.73m2) 15.04 Glucose (74-106) mg/dL 203 H Calcium (8.5-10.1) mg/dL 9.3 Magnesium (1.8-2.4) mg/dL 2.4 Total Bilirubin (0.2-1.0) mg/dL 0.36 AST (15-37) U/L 36 ALT (14-59) U/L 60 H Alkaline Phosphatase (46-116) U/L 147 H Troponin I (<or=51) ng/L 9 Total Protein (6.4-8.2) g/dL 7.4 Albumin (3.4-5.0) g/dL 4.1 COVID-19 Source Nasopharynx SARS-CoV-2 (PCR) (Negative) Negative Influenza Type A (PCR) (Negative) Negative Influenza Type B (PCR) (Negative) Negative RSV (PCR) (Negative) Negative Medical Decision Making Quality:SDOH Health Related Social Needs: No Data to Display PFSH All Active Problems (Updated 02/09/24 @ 11:49 by Mercy Cruz DPM) Neuritis of left foot (Acute) 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 (Acute) Pain in joint, foot, left (Acute) Presence of transplanted liver (Acute) Thrombosis of right cephalic vein (Acute) Folate deficiency (Acute) Sepsis (Acute) IDDM (insulin dependent diabetes mellitus) (Chronic) Obesity (BMI 30.0-34.9) (Chronic) Heme + stool (Acute) Hypoglycemia (Acute) Hypokalemia (Acute) Hypomagnesemia (Acute) Pleuritic chest pain (Acute) Staphylococcus aureus bacteremia (Acute) Hypotension (Acute) Thrombocytopenia (Chronic) Leukocytosis (Acute) Coagulopathy (Acute) Hypoproteinemia (Acute) Hypocalcemia (Acute) Gram-positive cocci bacteremia (Acute 08/23/22) Septic arthritis of knee, left (Acute ~08/09/22) S/P washout/debridement: 08/24/2022 Hyperbilirubinemia (Acute) Acute dehydration (Acute) ADHD (Acute) Crohn's disease in remission (Acute) Anemia of chronic disease (Acute) Acute exacerbation of chronic low back pain (Acute) Back pain (Acute) Stoma bleed (Acute) Chest pain (Acute) H/O malignant neoplasm of colon (Acute) Anemia, blood loss (Acute) GI bleed (Chronic) Medical History Cirrhosis of liver Hepatorenal syndrome Hyposmia Adjustment disorder Chronic low back pain Vitamin B12 deficiency Vitamin D deficiency HADLEY (obstructive sleep apnea) GERD (gastroesophageal reflux disease) Depression with anxiety Diabetes mellitus type 2 in obese PTSD (post-traumatic stress disorder) Colon cancer Surgical History Hx of liver transplant S/P D&C (status post dilation and curettage) S/P LEEP H/O ileostomy History of endometrial ablation S/P colectomy Family History Mother , age 49 due to heart disease Diabetes Heart disease Hypertension Father Heart disease Social History Smoking/Tobacco Use Status: Never Smoking risk assessment performed?: Yes Alcohol Intake: never Drug use: Never Substance use type: does not use Household members: family Housing: house Number of Children: 5 number of grandchildren: 15 Pets and animals: Yes Pets and animals: dog(s) What type of physical activity do you participate in: none Seatbelt use: always Do you feel safe at home: Yes Do you feel safe in your relationship?: Yes
[2024-03-11] MEDS: Lactated Ringers 1,000 ML 1000 ML IV (21:20)
[2024-03-11 21:59] LABS: Troponin I 12 ng/L (<or=51)
--- NOTE | 2024-03-11 22:13 | DI.RAD_ITS ---
Exam(s) XR PORTABLE CHEST AP EXAM: XR PORTABLE CHEST AP CLINICAL HISTORY: Eval PNA TECHNIQUE: 2D digital imaging was performed. COMPARISON: CR XR CHEST 2V PA LATERAL from 04/05/2023 FINDINGS: LUNGS: Clear. No pleural abnormality seen. HEART: Normal size. AORTA: Normal diameter. BONES: Unremarkable for age. Soft tissues: Unremarkable. IMPRESSION: No acute findings. DATA REPOSITORY: RADIATION DOSE DELIVERED:
[2024-03-11 22:59] LABS: Bilirubin Negative (Negative); Blood Negative (Negative); Clarity Clear (Clear); Glucose Negative (Negative); Ketones Negative (Negative); Leukocyte Esterase Small (Negative); Nitrite Negative (Negative); Specific Gravity 1.025 (1.005-1.025); Urobilinogen 0.2 mg/dL (Up to 0.2)
[2024-03-11 23:04] LABS: C & S Indicated? Yes; Casts Negative LPF (Negative); Crystals Negative HPF (Negative); Epithelial Cells Rare HPF (Negative); Mucus Negative (Negative); RBC 0-2 HPF (0-2)
[2024-03-11 23:05] LABS: Bacteria Few HPF (Negative)
--- NOTE | 2024-03-11 23:31 | HPE_ITS ---
Date of service: 03/11/24 Time of Service: 23:32 Assessment and Plan Assessment and plan (1) Orthostatic hypotension: Start date: 03/11/24 Start time: 23:46 Status: Acute Assessment and plan: The patient comes in w/ 3 day history of orthostatic pre-syncope w/o any loss of consciousness, cardiopulmonary symptoms or any new neurological deficits. She has noted poor oral intake and increased loose stool movements in her ostomy. She has not been on any new antibiotics outside of her PJP prophylaxis for liver transplant. In the ER she had an acute drop of her systolic pressures from 137 to 53. Her neurological exam shows noraml strength in all extremities 5/5. At this time I would recommend to continue w/ IVF and repeat Orthostatic in AM. She is no longer on prednisone and this seems less likely due to adrenal insufficiency; however if she is refractory of adequate IVF then we can re- evaluate this. In addition we should check for C. Diff w/ her increased ostomy output and check TSH. She is already on Midodrine 5mg tid which we can up- titrate if needed -Monitor on telemetry -Cont w/ IVF -If her BP is refractory to IVF consider up-titration of Midodrine and consider adrenal insufficiency -Hold BP medications (Spironolactone and Torsemide) -Repeat Orthostatics in AM -Obtain C Diff and check TSH (2) Leukocytosis: Status: Acute Assessment and plan: Suspect this is secondary to orthostatic hypotension. Recommend to continue to monitor and if her vital signs change we can re-evaluate for antibiotic administration. -Check Blood Cx x2 -Hold on ABX for now and monitor. Suspect most likely reactive. No evidence of SIRS/Sepsis at this time. UA is bland, CXR is unremarkable (3) Presence of transplanted liver: Status: Acute Assessment and plan: -Cont w/ Tacrolimus 1mg bid -Cont w/ Mycophenolate 1000mg bid -Cont w/ Acyclovir 800mg bid -Cont w/ Bactrim 1 tab three times per week (4) Coagulopathy: Status: Acute Assessment and plan: -On Eliquis 5mg bid (5) IDDM (insulin dependent diabetes mellitus): Status: Chronic Assessment and plan: -Cont w/ Levemir from 15 units qhs + Insulin Sliding Scale -BG on BMP 203 -Hold Metformin due to CKD (6) Hyperlipidemia: Status: Acute Assessment and plan: -Cont w/ Lipitor 20mg daily (7) CKD (chronic kidney disease) stage 5, GFR less than 15 ml/min: Status: Acute Assessment and plan: BUN 79, Cr 3.4. No recent BMP values to compare to. Prior on 07/15/23 BUN 28, Cr 1.7 -Cont w/ IVF and repeat in AM History of Present Illness History of Present Illness Chief Complaint: I feel dizzy Narrative: The patient is a 58 y/o C F w/ PMH Colon Cancer in 30s and more recently liver transplant secondary to DAMON Cirrhosis (07/2023) who comes in today due to recurrent episodes of dizziness which occurs when she changes position from sitting to standing. This has been on-going for the past few days. Tonight she was on the toilet when she got up and began to feel dizzy, have blurry vision and generalized weakness of her lower extremities. She did not have any loss of consciousness. She did lower herself gradually to the floor and laid down which did result in improvement. She denies any fever, chills or night sweats. She has no chest pain, palpitations, coughing, wheezing or dyspnea. She has no abdominal pain, nausea or vomiting. She has an ostomy and has noticed increased loose stool/watery input. She does admit to decreased oral intake but feels like she is hydrating herself. She has no recent domestic or international travel history. There have been no new medications added to her regimen. She has not had any recent sick contacts. EMS noted that she was hemodynamically stable but in the ER when orthostatics were performed her BP went from 135/71 to 53/28. She is not on any prednisone for her liver transplant at this time. Review of Systems Constitutional Constitutional: Denies chills, Denies fever(s), Denies night sweats and Reports poor appetite Eyes Eyes: Denies change in vision and Denies dry eyes ENT Ears, Nose, Mouth, and Throat: Reports dizziness, Denies dry mouth and Denies neck pain Cardiovascular Cardiovascular: Denies chest pain at rest, Denies rapid heart rate and Denies dyspnea Respiratory Respiratory: Denies chest congestion, Denies cough and Denies dyspnea Gastrointestinal Gastrointestinal: Denies abdominal pain, Denies coffee ground emesis, Denies constipation, Denies cramping, Reports diarrhea, Reports loose stools and Denies vomiting Genitourinary Comments: No hematuria, No dysuria Musculoskeletal Musculoskeletal: Denies myalgias, Denies arthralgias and Denies neck pain Neurologic Neurologic: Denies abnormal movements, Denies abnormal speech, Denies behavioral changes, Reports dizziness, Denies localized weakness and Denies paresthesias Psychiatric Psychiatric: Denies behavioral changes PFSH All Active Problems (Updated 03/12/24 @ 00:02 by Julio César Bañuelos MD) CKD (chronic kidney disease) stage 5, GFR less than 15 ml/min (Acute) Hyperlipidemia (Acute) Orthostatic hypotension (Acute) Neuritis of left foot (Acute) 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 (Acute) Pain in joint, foot, left (Acute) Presence of transplanted liver (Acute) Thrombosis of right cephalic vein (Acute) Folate deficiency (Acute) Sepsis (Acute) IDDM (insulin dependent diabetes mellitus) (Chronic) Obesity (BMI 30.0-34.9) (Chronic) Heme + stool (Acute) Hypoglycemia (Acute) Hypokalemia (Acute) Hypomagnesemia (Acute) Pleuritic chest pain (Acute) Staphylococcus aureus bacteremia (Acute) Hypotension (Acute) Thrombocytopenia (Chronic) Leukocytosis (Acute) Coagulopathy (Acute) Hypoproteinemia (Acute) Hypocalcemia (Acute) Gram-positive cocci bacteremia (Acute 08/23/22) Septic arthritis of knee, left (Acute ~08/09/22) S/P washout/debridement: 08/24/2022 Hyperbilirubinemia (Acute) Acute dehydration (Acute) ADHD (Acute) Crohn's disease in remission (Acute) Anemia of chronic disease (Acute) Acute exacerbation of chronic low back pain (Acute) Back pain (Acute) Stoma bleed (Acute) Chest pain (Acute) H/O malignant neoplasm of colon (Acute) Anemia, blood loss (Acute) GI bleed (Chronic) Medical History Cirrhosis of liver Hepatorenal syndrome Hyposmia Adjustment disorder Chronic low back pain Vitamin B12 deficiency Vitamin D deficiency HADLEY (obstructive sleep apnea) GERD (gastroesophageal reflux disease) Depression with anxiety Diabetes mellitus type 2 in obese PTSD (post-traumatic stress disorder) Colon cancer Surgical History Hx of liver transplant S/P D&C (status post dilation and curettage) S/P LEEP H/O ileostomy History of endometrial ablation S/P colectomy Family History Mother , age 49 due to heart disease Diabetes Heart disease Hypertension Father Heart disease Social History Smoking/Tobacco Use Status: Never Smoking risk assessment performed?: Yes Alcohol Intake: never Drug use: Never Substance use type: does not use Household members: family Housing: house Number of Children: 5 number of grandchildren: 15 Pets and animals: Yes Pets and animals: dog(s) What type of physical activity do you participate in: none Seatbelt use: always Do you feel safe at home: Yes Do you feel safe in your relationship?: Yes Meds Allergies and Home Medications Allergies Allergy/AdvReac Type Severity Reaction Status Date / Time codeine AdvReac Unknown unable to Verified 03/11/24 19:56 take related to colon removal ibuprofen AdvReac Unknown unable to Verified 03/11/24 19:56 take related to colon removal Home Medications ?Medication ?Instructions ?Recorded ?Confirmed ?Type levalbuterol tartrate 45 2 inh inhalation .Q4-6HR 01/22/20 03/11/24 History mcg/actuation aerosol inhaler (Xopenex HFA) metformin 500 mg tablet 1,000 mg PO BID 06/17/20 03/11/24 History blood sugar diagnostic (Blood #200 ea 09/09/22 03/11/24 Rx Glucose Test strips) 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 meter #1 ea 09/09/22 03/11/24 Rx 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 meter,continuous #1 ea 09/09/22 03/11/24 Rx (Dexcom G7 Angular Js Developer) 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 sensor (Dexcom G7 #3 ea 09/09/22 03/11/24 Rx Sensor device) diclofenac sodium 1 % topical gel 2 g topical QID PRN PRN #100 grams 09/09/22 03/11/24 Rx folic acid 1 mg tablet 1 mg PO DAILY #30 tabs 09/09/22 03/11/24 Rx insulin aspart U-100 100 unit/mL 1 sliding scale dose subcut 09/09/22 03/11/24 Rx (3 mL) subcutaneous pen (Novolog USEASDIRECTD #15 mL FlexPen U-100 Insulin aspart) lancets 30 gauge #200 ea 09/09/22 03/11/24 Rx magnesium chloride 64 mg 128 mg (2 x 64 mg) PO BID #120 tabs 09/09/22 03/11/24 Rx (magnesium chloride) tablet,delayed release (Mag 64) pen needle, diabetic 31 gauge x #200 ea 09/09/22 03/11/24 Rx 5/16 (Sure-Fine Pen Freedom) spironolactone 100 mg tablet 100 mg PO DAILY #30 tabs 09/09/22 03/11/24 Rx torsemide 20 mg tablet 20 mg PO DAILY #30 tabs 09/09/22 03/11/24 Rx insulin detemir U-100 100 unit/mL 15 unit subcut DAILY 09/18/22 03/11/24 History (3 mL) subcutaneous pen (Levemir FlexPen) ondansetron 4 mg disintegrating 4 mg PO Q8H PRN nausea and 07/15/23 03/11/24 Rx tablet vomiting #30 tabs acetaminophen 500 mg tablet 500 mg PO Q6H PRN 11/22/23 03/11/24 History acetaminophen 500 mg tablet (Mapap 500 - 1,000 mg PO PRN PRN 11/22/23 03/11/24 History Extra Strength) acyclovir 800 mg tablet 800 mg PO BID 11/22/23 03/11/24 History apixaban 5 mg tablet (Eliquis) 5 mg PO BID 11/22/23 03/11/24 History atorvastatin 20 mg tablet 20 mg PO DAILY 11/22/23 03/11/24 History calcium 600 mg (as 1 tab PO DAILY 11/22/23 03/11/24 History carbonate)-vitamin D3 20 mcg (800 unit) tablet ergocalciferol (vitamin D2) 1,250 1,250 mcg PO QWEEK 11/22/23 03/11/24 History mcg (50,000 unit) capsule midodrine 5 mg tablet 5 mg PO TID 11/22/23 03/11/24 History mycophenolate mofetil 250 mg 1,000 mg PO BID 11/22/23 03/11/24 History capsule nut.tx.gluc.intol,lac-free,soy ml PO 11/22/23 02/09/24 History (Glucerna Snack Shake oral liquid) oxycodone 5 mg capsule 5 mg PO BID PRN 11/22/23 03/11/24 History prednisolone 5 mg tablet 5 mg PO DAILY 11/22/23 03/11/24 History sodium bicarbonate 650 mg tablet 650 mg PO BID 11/22/23 03/11/24 History sulfamethoxazole 800 1 tab PO BID 11/22/23 03/11/24 History mg-trimethoprim 160 mg tablet tacrolimus 1 mg capsule, 1 mg PO BID 11/22/23 03/11/24 History immediate-release vitamin A acetate 3,000 mcg 3,000 mcg PO DAILY 11/22/23 03/11/24 History (10,000 unit) sublingual tablet pantoprazole 40 mg tablet,delayed 40 mg PO DAILY 03/11/24 03/11/24 History release Exam Const General: cooperative, healthy appearing, comfortable and no acute distress Nutritional Appearance: average body habitus Orientation: alert, awake and oriented x3 HENMT Head: normal to inspection Ears: hearing grossly normal bilaterally General nose exam: external nose normal Face and sinus: normal facial exam Eyes General: appearance normal, both eyes and all related structures Alignment and Position: alignment normal Periorbital: periorbital findings normal Eyelids: eyelids normal Neck Neck: normal visual inspection, full ROM and no lymphadenopathy Chest Chest: normal inspection of the chest Resp Effort & Inspection: normal respiratory effort and able to speak in complete sentences Auscultation: clear to auscultation bilaterally Cardio Rate: regular rate Rhythm: regular rhythm Heart Sounds: S1 normal and S2 normal GI Inspection: normal to inspection Palpation: soft Percussion: normal to percussion Other: Ostomy in place C/D/I Skin General skin exam: no rashes or lesions noted Neuro General: patient alert, patient awake and patient oriented x3 Cranial Nerves: CN's II-XI intact bilaterally Cognition: normal cognition Speech: speech normal Motor: strength 5/5 throughout Extrem General: normal to inspection and full ROM Results Labs 03/11/24 20:05 03/11/24 20:05 Labs: Laboratory Results - last 24 hr 03/11/24 03/11/24 03/11/24 20:00 20:05 20:12 WBC 14.30 H RBC 4.51 Hgb 14.1 Hct 40.0 MCV 89 MCH 31.3 MCHC 35.3 RDW 12.1 Plt Count 182 MPV 10.0 Immature Gran % 0.8 Neutrophils % 88.1 Lymphocytes % 4.8 Monocytes % 5.5 Eosinophils % 0.5 Basophils % 0.3 Nucleated RBC % 0.0 Absolute Neutrophils 12.60 H Absolute Lymphocytes 0.69 L Absolute Monocytes 0.79 Absolute Eosinophils 0.07 Absolute Basophils 0.04 PT 10.0 INR 1.0 Sodium 138 Potassium 3.9 Chloride 103 Carbon Dioxide 24.5 Anion Gap 10.5 BUN 79 H Creatinine 3.4 H Est GFR (CKD-EPI 2020) 15.04 Glucose 203 H Calcium 9.3 Magnesium 2.4 Total Bilirubin 0.36 AST 36 ALT 60 H Alkaline Phosphatase 147 H Troponin I 9 Total Protein 7.4 Albumin 4.1 Urine Color Urine Clarity Urine pH Ur Specific [place] Urine Protein Urine Ketones Urine Blood Urine Nitrite Urine Bilirubin Urine Urobilinogen Ur Leukocyte Esterase Urine RBC Urine WBC Ur Epithelial Cells Urine Crystals Urine Bacteria Urine Casts Urine Mucus Ur Culture Indicated? Urine Glucose COVID-19 Source Nasopharynx SARS-CoV-2 (PCR) Negative Influenza Type A (PCR) Negative Influenza Type B (PCR) Negative RSV (PCR) Negative 03/11/24 03/11/24 03/11/24 21:36 22:51 22:54 WBC RBC Hgb Hct MCV MCH MCHC RDW Plt Count MPV Immature Gran % Neutrophils % Lymphocytes % Monocytes % Eosinophils % Basophils % Nucleated RBC % Absolute Neutrophils Absolute Lymphocytes Absolute Monocytes Absolute Eosinophils Absolute Basophils PT INR Sodium Potassium Chloride Carbon Dioxide Anion Gap BUN Creatinine Est GFR (CKD-EPI 2020) Glucose Calcium Magnesium Total Bilirubin AST ALT Alkaline Phosphatase Troponin I 12 Cancelled Total Protein Albumin Urine Color Yellow Urine Clarity Clear Urine pH 6.0 Ur Specific [place] 1.025 Urine Protein 30 H Urine Ketones Negative Urine Blood Negative Urine Nitrite Negative Urine Bilirubin Negative Urine Urobilinogen 0.2 Ur Leukocyte Esterase Small H Urine RBC 0-2 Urine WBC 10-20 H Ur Epithelial Cells Rare Urine Crystals Negative Urine Bacteria Few Urine Casts Negative Urine Mucus Negative Ur Culture Indicated? Yes Urine Glucose Negative COVID-19 Source SARS-CoV-2 (PCR) Influenza Type A (PCR) Influenza Type B (PCR) RSV (PCR) Last Vital Signs Temp 36.4 C L 03/11/24 19:55 Pulse 75 03/11/24 22:53 Resp 12 03/11/24 22:53 BP 127/60 03/11/24 22:53 Pulse Ox 99 03/11/24 22:53 Time Spent Time spent with Patient: 40-54 minutes Time was spent: preparing to see the patient(eg.review tests), obtaining and/or reviewing separately otained hiistory, ordering medications,tests, procedures, referring, communicating with other health child care aide, indepentently interpreting results, counseling the patient and care coordination
--- NOTE | 2024-03-11 23:51 | DI.VRAD_ITS ---
PROCEDURE INFORMATION: Exam: XR Chest Exam date and time: 03/11/2024 9:57 PM Age: 58 years old Clinical indication: Other: Eval pna TECHNIQUE: Imaging protocol: Radiologic exam of the chest. Views: 1 view. COMPARISON: CR XR CHEST 2V PA LATERAL 04/05/2023 1:53 PM FINDINGS: Lungs: Unremarkable. No consolidation. Pleural spaces: Unremarkable. No pleural effusion. No pneumothorax. Heart/Mediastinum: Unremarkable. No cardiomegaly. Bones/joints: Unremarkable. IMPRESSION: No acute findings. Dictated and Authenticated by: Edgard Jim MD. Ordering:SOFÍA Costello MD
[2024-03-12] VITALS (11 sets, daily range): BP systolic 83–129; BP diastolic 42–80; PULSE 68–107; RESP 12–18; TEMP 36.4–36.8; O2SAT 95–99
[2024-03-12] MEDS: cefTRIAXone 1 GM/50 ML BAG IVPB (00:15)
[2024-03-12 00:44] LABS: TSH (W/Ref FT4) 1.13 uIU/mL (0.36-3.74)
--- NOTE | 2024-03-12 01:22 | W.PC.ACHO ---
Registration Status: Primary Language: Preferred Language: ED Information & Data Chief Complaint GenMedical 03/11/24 21:16 Triage Note called initially for a fall, 03/11/24 19:46 felt weak when she was in the bathroom. was able to get to the chair. bs 205. legs feel week and dizzy Medical / Surgical History (Last Reviewed 02/09/24 @ 11:44 by Mercy Cruz DPM) Cirrhosis of liver Hepatorenal syndrome Hyposmia Adjustment disorder Chronic low back pain Vitamin B12 deficiency Vitamin D deficiency HADLEY (obstructive sleep apnea) GERD (gastroesophageal reflux disease) Depression with anxiety Diabetes mellitus type 2 in obese PTSD (post-traumatic stress disorder) Colon cancer (Last Reviewed 02/09/24 @ 11:44 by Mercy Cruz DPM) Hx of liver transplant S/P D&C (status post dilation and curettage) S/P LEEP H/O ileostomy History of endometrial ablation S/P colectomy Most Recent Vital Signs Temperature 36.4 C L 03/11/24 19:55 Temperature Source Temporal Artery Scan 03/11/24 19:55 Pulse 75 03/11/24 22:53 Pulse 79 03/11/24 22:53 Respiratory Rate 12 03/11/24 22:53 Respiratory Effort Normal, Non-Labored 03/11/24 20:58 Respiratory Depth Normal 03/11/24 20:58 Respiratory Pattern Normal 03/11/24 20:58 Blood Pressure 127/60 03/11/24 22:53 Blood Pressure Mean 84 03/11/24 22:53 Blood Pressure Position Sitting 03/11/24 19:55 Pulse Oximetry 99 03/11/24 22:53 Oxygen Delivery Method Room Air 03/11/24 19:55 Oxygen Flow Rate 0 03/11/24 19:55 Pain Level 0 03/11/24 19:55 Allergies codeine Adverse Reaction (Unknown, Verified 03/11/24 19:56) unable to take related to colon removal ibuprofen Adverse Reaction (Unknown, Verified 03/11/24 19:56) unable to take related to colon removal Precautions Isolation Standard precaution 03/11/24 19:54 IV IV Catheter Type [Right Saline Lock Antecubital] IV Catheter Gauge [Right 20 Antecubital] Diet Orders Category Date Time Status Diabetes Consistent CHO [DIET] Nutrition 03/12/24 Breakfast Active Diagnostics 03/12/24 03/11/24 03/11/24 Range/Units 05:35 22:54 22:51 WBC Pending (4.4-10.8) 10^3/uL RBC Pending (3.93-5.22) 10^6/uL Hgb Pending (11.2-15.7) g/dL Hct Pending (36.0-46.0) % MCV Pending (80-95) fL MCH Pending (27.0-33.0) pg MCHC Pending (32.0-36.0) % RDW Pending (11.7-14.6) % Plt Count Pending (130-400) 10^3/uL MPV Pending (8.0-11.0) fL Immature Gran % Pending % Neutrophils % Pending % Lymphocytes % Pending % Monocytes % Pending % Eosinophils % Pending % Basophils % Pending % Nucleated RBC % (0.0-0.3) % Absolute Neutrophils Pending (1.2-6.7) 10^3/uL Absolute Lymphocytes Pending (1.2-3.4) 10^3/uL Absolute Monocytes Pending (0.1-0.8) 10^3/uL Absolute Eosinophils Pending (0.0-0.7) 10^3/uL Absolute Basophils Pending (0.0-0.2) 10^3/uL PT (9.1-11.1) sec INR (0.9-1.1) Sodium Pending (136-145) mmol/L Potassium Pending (3.5-5.1) mmol/L Chloride Pending (98-107) mmol/L Carbon Dioxide Pending (21.0-32.0) mmol/L Anion Gap Pending (3-11) mmol/L BUN Pending (7-18) mg/dL Creatinine Pending (0.55-1.02) mg/dL Est GFR (CKD-EPI 2020) Pending (mL/min/1.73m2) Glucose Pending (74-106) mg/dL Calcium Pending (8.5-10.1) mg/dL Magnesium (1.8-2.4) mg/dL Total Bilirubin Pending (0.2-1.0) mg/dL AST Pending (15-37) U/L ALT Pending (14-59) U/L Alkaline Phosphatase Pending (46-116) U/L Troponin I Cancelled (<or=51) ng/L Total Protein Pending (6.4-8.2) g/dL Albumin Pending (3.4-5.0) g/dL TSH (0.36-3.74) uIU/mL Urine Color Yellow (Yellow) Urine Clarity Clear (Clear) Urine pH 6.0 (5-8) Ur Specific [place] 1.025 (1.005-1.025) Urine Protein 30 H (Neg-Trace) mg/dL Urine Ketones Negative (Negative) mg/dL Urine Blood Negative (Negative) Urine Nitrite Negative (Negative) Urine Bilirubin Negative (Negative) Urine Urobilinogen 0.2 (Up to 0.2) mg/dL Ur Leukocyte Esterase Small H (Negative) Urine RBC 0-2 (0-2) HPF Urine WBC 10-20 H (0-5) HPF Ur Epithelial Cells Rare (Negative) HPF Urine Crystals Negative (Negative) HPF Urine Bacteria Few (Negative) HPF Urine Casts Negative (Negative) LPF Urine Mucus Negative (Negative) Ur Culture Indicated? Yes Urine Glucose Negative (Negative) mg/dL COVID-19 Source SARS-CoV-2 (PCR) (Negative) Influenza Type A (PCR) (Negative) Influenza Type B (PCR) (Negative) RSV (PCR) (Negative) 03/11/24 03/11/24 03/11/24 Range/Units 21:36 20:12 20:05 WBC 14.30 H (4.4-10.8) 10^3/uL RBC 4.51 (3.93-5.22) 10^6/uL Hgb 14.1 (11.2-15.7) g/dL Hct 40.0 (36.0-46.0) % MCV 89 (80-95) fL MCH 31.3 (27.0-33.0) pg MCHC 35.3 (32.0-36.0) % RDW 12.1 (11.7-14.6) % Plt Count 182 (130-400) 10^3/uL MPV 10.0 (8.0-11.0) fL Immature Gran % 0.8 % Neutrophils % 88.1 % Lymphocytes % 4.8 % Monocytes % 5.5 % Eosinophils % 0.5 % Basophils % 0.3 % Nucleated RBC % 0.0 (0.0-0.3) % Absolute Neutrophils 12.60 H (1.2-6.7) 10^3/uL Absolute Lymphocytes 0.69 L (1.2-3.4) 10^3/uL Absolute Monocytes 0.79 (0.1-0.8) 10^3/uL Absolute Eosinophils 0.07 (0.0-0.7) 10^3/uL Absolute Basophils 0.04 (0.0-0.2) 10^3/uL PT 10.0 (9.1-11.1) sec INR 1.0 (0.9-1.1) Sodium 138 (136-145) mmol/L Potassium 3.9 (3.5-5.1) mmol/L Chloride 103 (98-107) mmol/L Carbon Dioxide 24.5 (21.0-32.0) mmol/L Anion Gap 10.5 (3-11) mmol/L BUN 79 H (7-18) mg/dL Creatinine 3.4 H (0.55-1.02) mg/dL Est GFR (CKD-EPI 2020) 15.04 (mL/min/1.73m2) Glucose 203 H (74-106) mg/dL Calcium 9.3 (8.5-10.1) mg/dL Magnesium 2.4 (1.8-2.4) mg/dL Total Bilirubin 0.36 (0.2-1.0) mg/dL AST 36 (15-37) U/L ALT 60 H (14-59) U/L Alkaline Phosphatase 147 H (46-116) U/L Troponin I 12 9 (<or=51) ng/L Total Protein 7.4 (6.4-8.2) g/dL Albumin 4.1 (3.4-5.0) g/dL TSH (0.36-3.74) uIU/mL Urine Color (Yellow) Urine Clarity (Clear) Urine pH (5-8) Ur Specific [place] (1.005-1.025) Urine Protein (Neg-Trace) mg/dL Urine Ketones (Negative) mg/dL Urine Blood (Negative) Urine Nitrite (Negative) Urine Bilirubin (Negative) Urine Urobilinogen (Up to 0.2) mg/dL Ur Leukocyte Esterase (Negative) Urine RBC (0-2) HPF Urine WBC (0-5) HPF Ur Epithelial Cells (Negative) HPF Urine Crystals (Negative) HPF Urine Bacteria (Negative) HPF Urine Casts (Negative) LPF Urine Mucus (Negative) Ur Culture Indicated? Urine Glucose (Negative) mg/dL COVID-19 Source SARS-CoV-2 (PCR) (Negative) Influenza Type A (PCR) (Negative) Influenza Type B (PCR) (Negative) RSV (PCR) (Negative) 03/11/24 03/11/24 Range/Units 20:00 00:00 WBC (4.4-10.8) 10^3/uL RBC (3.93-5.22) 10^6/uL Hgb (11.2-15.7) g/dL Hct (36.0-46.0) % MCV (80-95) fL MCH (27.0-33.0) pg MCHC (32.0-36.0) % RDW (11.7-14.6) % Plt Count (130-400) 10^3/uL MPV (8.0-11.0) fL Immature Gran % % Neutrophils % % Lymphocytes % % Monocytes % % Eosinophils % % Basophils % % Nucleated RBC % (0.0-0.3) % Absolute Neutrophils (1.2-6.7) 10^3/uL Absolute Lymphocytes (1.2-3.4) 10^3/uL Absolute Monocytes (0.1-0.8) 10^3/uL Absolute Eosinophils (0.0-0.7) 10^3/uL Absolute Basophils (0.0-0.2) 10^3/uL PT (9.1-11.1) sec INR (0.9-1.1) Sodium (136-145) mmol/L Potassium (3.5-5.1) mmol/L Chloride (98-107) mmol/L Carbon Dioxide (21.0-32.0) mmol/L Anion Gap (3-11) mmol/L BUN (7-18) mg/dL Creatinine (0.55-1.02) mg/dL Est GFR (CKD-EPI 2020) (mL/min/1.73m2) Glucose (74-106) mg/dL Calcium (8.5-10.1) mg/dL Magnesium (1.8-2.4) mg/dL Total Bilirubin (0.2-1.0) mg/dL AST (15-37) U/L ALT (14-59) U/L Alkaline Phosphatase (46-116) U/L Troponin I (<or=51) ng/L Total Protein (6.4-8.2) g/dL Albumin (3.4-5.0) g/dL TSH 1.13 (0.36-3.74) uIU/mL Urine Color (Yellow) Urine Clarity (Clear) Urine pH (5-8) Ur Specific [place] (1.005-1.025) Urine Protein (Neg-Trace) mg/dL Urine Ketones (Negative) mg/dL Urine Blood (Negative) Urine Nitrite (Negative) Urine Bilirubin (Negative) Urine Urobilinogen (Up to 0.2) mg/dL Ur Leukocyte Esterase (Negative) Urine RBC (0-2) HPF Urine WBC (0-5) HPF Ur Epithelial Cells (Negative) HPF Urine Crystals (Negative) HPF Urine Bacteria (Negative) HPF Urine Casts (Negative) LPF Urine Mucus (Negative) Ur Culture Indicated? Urine Glucose (Negative) mg/dL COVID-19 Source Nasopharynx SARS-CoV-2 (PCR) Negative (Negative) Influenza Type A (PCR) Negative (Negative) Influenza Type B (PCR) Negative (Negative) RSV (PCR) Negative (Negative) 03/12/24 00:07 Blood Culture - Pending Blood 03/11/24 23:57 Blood Culture - Pending Blood 03/11/24 22:51 Urine Culture - Pending Urine - Reflex from Ua Intake and Output - 24 Hour Total 03/11/24 19:30 thru 03/11/24 22:39 Intake Total 1020 Balance 1020 Weight 82.418 kg Intake: IV 1020 Falls Risk Assessment History of Falls No History 03/11/24 19:58 Contributing Factors No Factors 03/11/24 19:58 Ambulatory Aids Uses ambulatory device 03/11/24 19:58 Tubes/Lines None 03/11/24 19:58 Gait Evaluation No gait disturbance 03/11/24 19:58 Cognition No cognitive impairment 03/11/24 19:58 Fall Total Score 15 03/11/24 19:58 Level of Risk Standard/Low Risk 03/11/24 19:58 Problems (Last Reviewed 02/09/24 @ 11:44 by Mercy Cruz DPM) CKD (chronic kidney disease) stage 5, GFR less than 15 ml/min (Acute) Hyperlipidemia (Acute) Orthostatic hypotension (Acute) Presence of transplanted liver (Acute) IDDM (insulin dependent diabetes mellitus) (Chronic) Leukocytosis (Acute) Coagulopathy (Acute) v v v v v v v v v Sending and/or Receiving Nurses: Please use comment section below to note any information pertinent to the patient hand-off not included above. Information / Comments: Pt arrived to Er s/p syncoal episode in bathroom at home. pt reports was able to get to chair and did not fall. Hx of colon cancer w/ current ostomy and hx of liver tx and needs a kidney. Dx Ortho static hypotension. Report received from:Jen YAO RN, [id number], admit to med/surg rm 7.
[2024-03-12] MEDS: Normal Saline Flush 10 ML SYR IVP ×3 (02:10→20:52)
[2024-03-12 04:53] LABS: C Diff PCR Negative (Negative)
[2024-03-12 06:53] LABS: Abs Immature Grans 0.05 10^3/uL (0.0-0.06); Absolute Basophil Count 0.03 10^3/uL (0.0-0.2); Absolute Lymphocyte Count 1.36 10^3/uL (1.2-3.4); Absolute Monocyte Count 0.73 10^3/uL (0.1-0.8); Basophils % 0.3 %; Eosinophils % 1.1 %; HCT 35.9 % (36.0-46.0); HGB 12.9 g/dL (11.2-15.7); Immature Grans % 0.6 %; Lymphocytes % 15.5 %; MCH 31.2 pg (27.0-33.0); MCHC 35.9 % (32.0-36.0); MCV 87 fL (80-95); MPV 10.5 fL (8.0-11.0); Monocytes % 8.3 %; Neutrophils % 74.2 %; Platelet Count 167 10^3/uL (130-400); RBC 4.13 10^6/uL (3.93-5.22); RDW 12.2 % (11.7-14.6); RDW-SD 38.5 fL; WBC 8.77 10^3/uL (4.4-10.8)
[2024-03-12 07:24] LABS: ALT 52 U/L (14-59); AST 28 U/L (15-37); Albumin 3.7 g/dL (3.4-5.0); Alkaline Phosphatase 126 U/L (46-116); Anion Gap 11.8 mmol/L (3-11); BUN 72 mg/dL (7-18); Bilirubin, Total 0.37 mg/dL (0.2-1.0); CO2 22.2 mmol/L (21.0-32.0); CREATININE 3.1 mg/dL (0.55-1.02); Calcium 9.3 mg/dL (8.5-10.1); Chloride 104 mmol/L (98-107); Glucose 162 mg/dL (74-106); Potassium 3.6 mmol/L (3.5-5.1); Sodium 138 mmol/L (136-145); Total Protein 6.7 g/dL (6.4-8.2)
[2024-03-12] MEDS: Pantoprazole 40 MG TABCR PO (08:41)
[2024-03-12] MEDS: Tacrolimus 0.5 MG CAP 3 MG PO (08:41)
[2024-03-12] MEDS: Sodium Bicarbonate 650 MG TAB PO ×2 (08:45→20:51)
[2024-03-12] MEDS: Insulin Aspart 300 UNITS/3 ML PEN SC ×3 (08:46→16:54)
[2024-03-12] MEDS: Lactated Ringers 1,000 ML 125 ML IV ×2 (09:14→17:11)
[2024-03-12] MEDS: Mycophenolate Mofetil 250 MG CAP 500 MG PO ×2 (10:53→23:05)
[2024-03-12] MEDS: Tacrolimus 0.5 MG CAP 1 MG PO ×2 (11:10→23:04)
[2024-03-12] MEDS: Midodrine 2.5 MG TAB 5 MG PO ×3 (11:14→20:51)
--- NOTE | 2024-03-12 12:27 | PHACLINREV_ITS ---
Pharmacy Admission Review Admission Clinical Review Admission Pharmacy Review: CKD (chronic kidney disease) stage 5, GFR less than 15 ml/min (Acute) Hyperlipidemia (Acute) Orthostatic hypotension (Acute) Presence of transplanted liver (Acute) Leukocytosis (Acute) Coagulopathy (Acute) codeine Adverse Reaction (Unknown, Verified 03/11/24 19:56) unable to take related to colon removal ibuprofen Adverse Reaction (Unknown, Verified 03/11/24 19:56) unable to take related to colon removal Resuscitation Status Full Code Height 5 ft 4 in Weight 82 kg Comments Comments/Follow Ups: blood/urine cultures pending, reach out to provider about vitamin D2 - patient takes weekly on Mondays, brought in bottle ([facility]), watch renal function Pharmacy Admission Review Renal Dosing Renal Dosing: BUN 72 mg/dL (7-18) H 03/12/24 06:10 Creatinine 3.1 mg/dL (0.55-1.02) H 03/12/24 06:10 Medications needing adjustments: Intervened (CrCl 20.49 mL/min, BUN decreased from 79 and SCr decreased from 3.4) List of meds needing interventions: Changed Bactrim order from DS to SS - provider aware of change, changed enoxaparin from 40mg to 30mg Anticoagulation Anticoagulation: Hgb 12.9 g/dL (11.2-15.7) 03/12/24 06:10 Hct 35.9 % (36.0-46.0) L 03/12/24 06:10 Plt Count 167 10^3/uL (130-400) 03/12/24 06:10 INR 1.0 (0.9-1.1) 03/11/24 20:12 Creatinine 3.1 mg/dL (0.55-1.02) H 03/12/24 06:10 DVT Prophylaxis: Intervened (changed order from 40mg to 30mg due to CrCl < 30) Medications: Enoxaparin (30mg daily) Opiate Usage Evaluate Pain Scale/Pains Meds: Reviewed (oxycodone 5mg BID PRN - no doses given) Scheduled Bowel Reg ordered if on Opiates?: No Relevant Labs Relevant Labs: Sodium 138 mmol/L (136-145) 03/12/24 06:10 Potassium 3.6 mmol/L (3.5-5.1) 03/12/24 06:10 Chloride 104 mmol/L (98-107) 03/12/24 06:10 Magnesium 2.4 mg/dL (1.8-2.4) 03/11/24 20:05 Electrolytes, C-Reactive P, ESR: Reviewed (WBC decreased from 14.3 to 8.77) DM Control DM Control: Glucose 162 mg/dL (74-106) H 03/12/24 06:10 Finger Stick Blood Glucose 163 1213 Finger Stick Blood Glucose 163 1140 Finger Stick Blood Glucose 163 1140 Finger Stick Blood Glucose 181 0903 Finger Stick Blood Glucose 181 0846 Finger Stick Blood Glucose 181 0745 Finger Stick Blood Glucose 181 0745 DM Control: Intervened Insulin Dosing, Diabetic Medication: Patient has order for SS insulin and glargine 15 units at bedtime. Originally had Levemir on home med list but confirmed with patient that she uses Lantus. Updated home med list and changed order to Lantus (provider aware). Cardiac Review Cardiac Review: Troponin I Cancelled 03/11/24 22:54 BP, HR, EF%: Reviewed (BP and HR WNL) List meds needing interventions: Has order for midodrine 5mg TID QTc Review QTc: Reviewed (429 from 03/11/24) IV to PO Switch IV Medications: Reviewed Home Meds Home Med List reviewed: Intervened Relevent Home Meds Not ordered & why?: metformin (on hold), APAP (PRN), diclofenac gel (PRN), vitamin D2 (weekly - on Mondays), vitamin A Completed med rec using patients own meds (including pill pack) that were brought in to pharmacy and external fill history. Provider was made aware of all changes to home med list and any orders. Changes as follows: Meds on home med list that were adjusted: changed metformin from 1000mg BID to metformin ER 500mg daily, changed tacrolimus from 3mg BID to 1mg BID, changed mycophenolate from 1000mg BID to 500mg BID. Orders for tacrolimus and mycophenolate were adjusted. Meds taken off home med list: acyclovir (canceled order), Eliquis (canceled order), atorvastatin (canceled order), Levemir (canceled order), midodrine (kept order per provider), ondansetron, spironolactone, torsemide and prednisone. Added to home med list: Lantus 15 units at bedtime (added order) Current Meds Current Medication Order Review: Intervened Comments: changed pantoprazole timing from 0830 to 0730 per pharmacy protocol changed ED IV access Comments Comments/Follow Ups: blood/urine cultures pending, reach out to provider about vitamin D2 - patient takes weekly on Mondays, brought in bottle (in [facility] own [facility]), watch renal function
--- NOTE | 2024-03-12 15:22 | PDOC.CMIN ---
Date of service: 03/12/24 Time of Service: 13:00 Care Management Initial Assmt Initial Assessment Reason for Hospitalization: orthostatic hypotension s/p fall Functional Status/Living Situation Patient Presentation: Janice presented to the ED last night with c/o dizziness when she stands, weakness, lightheadedness and blurry vision. She stated to that she fell slowly to the floor, did not hurt herself, but was unable to get back up. EMS was called. In the ED, orthostatic VS were taken, and Janice had a drop in her systolic BP to the 50s with standing. She was given fluids and was admitted. When met with Janice today she was very pleasant. She has a long, complicated, medical history which includes colon CA with an ostomy, liver tranplant in 2023, CKD and diabetes. Janice has been dealing with medical issues for many years. She stated that she may need a kidney transplant as well. She is being followed closely by doctors in [place]. Town of Residence: [place] Resides with: Child (son Fabricio and his have been living with Janice since she returned home after her liver transplant) Significant Other/Family: Local (5 kids 1 in [place], 1 in [place], 2 in [place] and 1 [address] Caregiver/Guardian: son, Fabricio, has been helping out [employer]: family. Especially likes to spend time with her grandson who lives very close. Janice has [employer] Employment Status: Disabled Instrumental Activities of Daily Living (ADLs): Independent (does need help with big chores and driving long distances. She tires very easily) Medications Medication Management: Issues/Barriers with Instructions/Directions (Seems Janice was not taking one of her medications. She sees many different doctors who are often changing her medications. ) Advance Directives Advance Directives: Do you have an Advance Directive: Y 09/04/23 08:45 AD On File at [facility]: Y 09/04/23 08:45 Date Asked 08/24/22 09/04/23 08:45 AD Date Reviewed 03/11/24 03/11/24 20:13 COLST On File at [facility] COLST Date Scanned Code Status Resuscitation Status Full Code Portal Pt does not currently have a portal and education provided: Yes Insurance Coverage/Financial Issues Insurance: Medicare and Medicaid Care Team Visit Care Team Role Provider Type Deandra Hutchins MD Primary Care Provider [facility] STAFF PHYSICIAN Dania Cartwright MD Emergency Provider [facility] STAFF PHYSICIAN Julio César Bañuelos MD Admit Provider [facility] STAFF PHYSICIAN Attending Provider Discharge Potential Discharge Needs: PCP F/U Appt and Other (continued f/u with her many specialists) Anticipated Barriers to Discharge: None Identified Patient/Family Education Needs: Review discharge instructions, discuss Ask Me Three Transportation: Private vehicle Plan: Anticipate that Janice will be discharged home with no new services. She will f/u with her PCP and her team of providers as needed. She will transport in a private vehicle. CM will continue to follow and update the plan as needed. Social Determinants of Health Screening Social Determinants of Health last assessed: 03/12/24 Will the Patient Participate in the Screening?: Yes Do you worry about having a steady place to live?: no Problems where you live: no known problems In the past 12 months, have you had to go without electric, gas, oil or water in your home?: no Have you or anyone in your house had to go without enough food to eat?: no Has lack of transportation kept you from medical appointments or from doing things needed for daily living?: no Has anyone in your life made you feel unsafe or unsupported?: no How hard is it for you to pay for the very basics like food, housing, medical care, and heating? Would you say it is:: Not hard at all Do you want help finding or keeping work or a job?: I do not need or want help If for any reason you need help with day-to-day activities such as bathing, preparing meals, shopping, managing finances, etc., do you get the help you need?: I get all the help I need How often do you feel lonely or isolated from those around you?: Never Do you speak a language other than Danish at home?: No Does the patient want assistance with any of the above?: No PFSH All Active Problems (Updated 03/12/24 @ 00:02 by Julio César Bañuelos MD) CKD (chronic kidney disease) stage 5, GFR less than 15 ml/min (Acute) Hyperlipidemia (Acute) Orthostatic hypotension (Acute) Neuritis of left foot (Acute) 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 (Acute) Pain in joint, foot, left (Acute) Presence of transplanted liver (Acute) Thrombosis of right cephalic vein (Acute) Folate deficiency (Acute) Sepsis (Acute) IDDM (insulin dependent diabetes mellitus) (Chronic) Obesity (BMI 30.0-34.9) (Chronic) Heme + stool (Acute) Hypoglycemia (Acute) Hypokalemia (Acute) Hypomagnesemia (Acute) Pleuritic chest pain (Acute) Staphylococcus aureus bacteremia (Acute) Hypotension (Acute) Thrombocytopenia (Chronic) Leukocytosis (Acute) Coagulopathy (Acute) Hypoproteinemia (Acute) Hypocalcemia (Acute) Gram-positive cocci bacteremia (Acute 08/23/22) Septic arthritis of knee, left (Acute ~08/09/22) S/P washout/debridement: 08/24/2022 Hyperbilirubinemia (Acute) Acute dehydration (Acute) ADHD (Acute) Crohn's disease in remission (Acute) Anemia of chronic disease (Acute) Acute exacerbation of chronic low back pain (Acute) Back pain (Acute) Stoma bleed (Acute) Chest pain (Acute) H/O malignant neoplasm of colon (Acute) Anemia, blood loss (Acute) GI bleed (Chronic) Medical History Cirrhosis of liver Hepatorenal syndrome Hyposmia Adjustment disorder Chronic low back pain Vitamin B12 deficiency Vitamin D deficiency HADLEY (obstructive sleep apnea) GERD (gastroesophageal reflux disease) Depression with anxiety Diabetes mellitus type 2 in obese PTSD (post-traumatic stress disorder) Colon cancer Surgical History Hx of liver transplant S/P D&C (status post dilation and curettage) S/P LEEP H/O ileostomy History of endometrial ablation S/P colectomy Family History Mother , age 49 due to heart disease Diabetes Heart disease Hypertension Father Heart disease Social History Smoking/Tobacco Use Status: Never Smoking risk assessment performed?: Yes Alcohol Intake: never Drug use: Never Substance use type: does not use Household members: family Housing: house Number of Children: 5 number of grandchildren: 15 Pets and animals: Yes Pets and animals: dog(s) What type of physical activity do you participate in: none Seatbelt use: always Do you feel safe at home: Yes Do you feel safe in your relationship?: Yes Readmission Within the Past 30 Days Yes or No: No
[2024-03-13] VITALS (8 sets, daily range): BP systolic 92–143; BP diastolic 50–76; PULSE 62–89; RESP 15–18; TEMP 36.7–36.8; O2SAT 96–99
[2024-03-13] MEDS: Lactated Ringers 1,000 ML 125 ML IV (01:25)
[2024-03-13] MEDS: Sodium Bicarbonate 650 MG TAB PO (07:53)
[2024-03-13] MEDS: Midodrine 2.5 MG TAB 5 MG PO ×2 (07:53→14:57)
[2024-03-13] MEDS: Pantoprazole 40 MG TABCR PO (07:53)
--- NOTE | 2024-03-13 08:25 | CMPROGNOTE_ITS ---
Date of service: 03/13/24 Time of Service: 08:25 Care Management Progress Note Progress Note Text Progress Note Text: Janice was sitting up in bed when CM met with her. She was pleasant and engaged easily with CM, known to her from previous hospital stays. Jnaice stated that she is feeling better and that the new medication she has been given (midodrine) has been helping with her hypotension. Janice verbalized that she is hopeful that she will be discharged home later today. No new services are anticipated. Discharge Potential Discharge Needs: PCP F/U Appt Anticipated Barriers to Discharge: None Identified Patient/Family Education Needs: Review discharge instructions, discuss Ask Me Three Transportation: Private vehicle Plan: Anticipate that Janice will be discharged home with no new services. She will f/u with her PCP and her team of providers as needed. She will transport in a private vehicle. CM will continue to follow and update the plan as needed. S Social Determinants of Health Screening Social Determinants of Health last assessed: 03/13/24 Will the Patient Participate in the Screening?: Yes Do you worry about having a steady place to live?: no Problems where you live: no known problems In the past 12 months, have you had to go without electric, gas, oil or water in your home?: no Have you or anyone in your house had to go without enough food to eat?: no Has lack of transportation kept you from medical appointments or from doing t hings needed for daily living?: no Has anyone in your life made you feel unsafe or unsupported?: no How hard is it for you to pay for the very basics like food, housing, medical care, and heating? Would you say it is:: Not hard at all Do you want help finding or keeping work or a job?: I do not need or want help If for any reason you need help with day-to-day activities such as bathing, preparing meals, shopping, managing finances, etc., do you get the help you need?: I get all the help I need How often do you feel lonely or isolated from those around you?: Never Do you speak a language other than Greenlandic at home?: No Does the patient want assistance with any of the above?: No
[2024-03-13] MEDS: Mycophenolate Mofetil 250 MG CAP 500 MG PO (09:01)
[2024-03-13] MEDS: Tacrolimus 0.5 MG CAP 1 MG PO (09:01)
--- NOTE | 2024-03-13 11:57 | DSE_ITS ---
Date of service: 03/13/24 Time of Service: 11:57 DS: Diagnosis Discharge Diagnosis (1) Orthostatic hypotension: Status: Acute (2) Leukocytosis: Status: Acute (3) Presence of transplanted liver: Status: Acute (4) Coagulopathy: Status: Acute (5) IDDM (insulin dependent diabetes mellitus): Status: Chronic (6) Hyperlipidemia: Status: Acute (7) CKD (chronic kidney disease) stage 5, GFR less than 15 ml/min: Status: Acute Discharge Plan Disposition Patient Disposition: Home Condition: Good Discharge Details Reason For Visit: Orthostatic Hypotension Admit Date/Time: 03/12/24 00:04 Admit Provider: Julio César Bañuelos Attending Provider: Julio César Bañuelos Primary Care Provider: Deandra Hutchins [facility] Course Hospital Course: Patient initially presented with signs and symptoms that were consistent with orthostatic hypotension. This is likely in the setting of status post liver transplant and worsening kidney function as a result. However, patient received IV fluid rehydration in addition to initiation of midodrine and had significant improvement of her symptoms. Orthostatic vitals were significantly improved and patient was able to ambulate a impressive distance around the unit without experiencing any lightheadedness or dizziness. Ultimately, given that the patient's symptoms significantly improved he was determined that she was stable for discharge home. Home Meds and New Rx's Prescriptions: New midodrine 2.5 mg Tablet 5 mg PO TID 90 Days Qty: 540 2RF Continued ergocalciferol (vitamin D2) 1,250 mcg (50,000 unit) capsule 1,250 mcg PO QWEEK Patient Comments: MONDAYS Glucerna Snack Shake Liquid PO mycophenolate mofetil 250 mg capsule 500 mg PO BID acetaminophen 500 mg tablet 500 mg PO Q6H PRN sodium bicarbonate 650 mg tablet 650 mg PO BID sulfamethoxazole-trimethoprim 800-160 mg tablet 1 tab PO BID Rx Instructions: take 1 tablet by mouth 3 times a week vitamin A acetate 3,000 mcg (10,000 unit) tablet, sublingual 3,000 mcg PO DAILY levalbuterol tartrate [Xopenex HFA] 45 mcg/actuation HFA aerosol inhaler 2 inh inhalation .Q4-6HR diclofenac sodium 1 % Gel 2 g topical QID PRN PRNQty: 100 0RF Rx Instructions: apply to Left knee folic acid 1 mg Tablet 1 mg PO DAILY Qty: 30 0RF magnesium chloride [Mag 64] 64 mg Tablet,Delayed Release (Dr/Ec) 128 mg PO BID Qty: 120 0RF insulin aspart U-100 [Novolog FlexPen U-100 Insulin] 100 unit/mL (3 mL) insulin pen 1 sliding scale dose subcut USEASDIRECTD MDD 100 units Qty: 15 0RF Rx Instructions: Take AC and HS. Mealtime: take 2 units per 10 grams of carbs consumed, up to 20 units per meal. In addition, take 2 units for every 50 points that blood sugar is over 150, up to 10 units AC/HS. pantoprazole 40 mg tablet,delayed release (DR/EC) 40 mg PO DAILY metformin 500 mg tablet extended release 24 hr 500 mg PO DAILY Patient Comments: TAKE 1 TABLET BY MOUTH EVERY MORNING WITH FOOD tacrolimus 0.5 mg capsule 1 mg PO Q12H Patient Comments: TAKE 2 CAPSULES BY MOUTH EVERY MORNING AND 2 EVERY EVENING insulin glargine [Lantus Solostar U-100 Insulin] 100 unit/mL (3 mL) insulin pen 15 unit SUBCUT HS Discontinued oxycodone 5 mg capsule 5 mg PO BID PRN No Action (DME) Dexcom G7 Sensor Device See Rx Instructions .Route Qty: 3 0RF Rx Instructions: For blood sugar monitoring in am, before meals, and at bedtime (DME) pen needle, diabetic [Sure-Fine Pen [place]] 31 gauge x 5/16 needle See Rx Instructions .Route Qty: 200 1RF Rx Instructions: For lantus injections BID and aspart AC/HS (DME) Dexcom G7 [employer] Professor Misc See Rx Instructions .Route Qty: 1 0RF Rx Instructions: For blood sugar monitoring AC/HS (DME) lancets 30 gauge misc See Rx Instructions .Route Qty: 200 0RF Rx Instructions: As directed (DME) 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 meter Kit See Rx Instructions .Route Qty: 1 0RF Rx Instructions: glucometer for blood sugar checks AC/HS (DME) Blood Glucose Test Strip See Rx Instructions .Route Qty: 200 0RF Rx Instructions: For blood sugar checks AC&HS Discharge Instructions Activity:: Activity as Tolerated Equipment/Supplies:: No Equipment Needed Diet:: As Tolerated Discharge Orders Discharge Orders: Discharge Order (Routine); Ordered 03/13/24 Ordered By: Momo Mcmahon DS: Summary Time Spent with Patient providing and/or coordinating discharge services: Greater than 30 minutes Status at Discharge Functional status at discharge: independent ambulation Overall status at discharge: patient is back to baseline Mental Status: mental status grossly normal Speech and Movement: speech and movement normal Mood: congruent mood Affect: normal affect Quality:SDOH Health Related Social Needs: No Data to Display Exam Narrative Exam Narrative: Well-appearing female laying in bed in no acute distress, ANO x 4, heart regular rhythm, lungs clear to auscultation bilaterally, abdomen soft, nontender, nondistended Psych Mental Status: mental status grossly normal Speech and Movement: speech and movement normal Mood: congruent mood Affect: normal affect DS: Data Vitals/I&O Vitals and I&O: Vital Signs Temperature 98.1 F 03/13/24 10:50 Temperature Source Temporal Artery Scan 03/13/24 10:50 Pulse 68 03/13/24 10:50 Pulse Rhythm Regular 03/12/24 01:23 Pulse 79 03/11/24 22:53 Respiratory Rate 18 03/13/24 10:50 Respiratory Effort Normal 03/12/24 01:23 Respiratory Depth Normal 03/12/24 01:23 Respiratory Pattern Normal 03/12/24 01:23 Blood Pressure 128/67 03/13/24 10:50 Blood Pressure Mean 84 03/11/24 22:53 Blood Pressure Position Sitting 03/11/24 19:55 Pulse Oximetry 97 03/13/24 10:50 Oxygen Delivery Method Room Air 03/13/24 10:50 Oxygen Flow Rate 0 03/13/24 10:50 Pain Level 0 03/13/24 10:50 Comment pt ambulated around the unit (one lap). pt asymptomatic although per pt left leg bothers her when she walks. 03/13/24 09:20 Intake & Output 03/12/24 03/13/24 03/13/24 17:59 05:59 17:59 Intake Total 1763.75 / 1763.75 1600 / 3363.75 480 / 480 Output Total 650 / 650 300 / 300 Balance 1113.75 / 1113.75 1600 / 2713.75 180 / 180 Intake: IV 1003.75 / 1003.75 1000 / 2002.75 Oral 760 / 760 600 / 1360 480 / 480 Output: Urine 150 / 150 Stool 500 / 500 300 / 300 Other: Urine Color Pale Yellow Urine Appearance Clear Clear Urine Odor Normal None Comment pt voided unmeasured amount x 1 No hat in toilet at this time. Will place hat in toilet. Stool Size Small Moderate Moderate Stool Characteristics Liquid Liquid Liquid Brown Data Completed and Pending Labs on day of discharge: Preliminary micro results at discharge 03/11/24 22:51 Urine Culture - Preliminary Urine - Reflex from Ua Gram positive mike, mixed Gram negative poncho 03/11/24 23:57 Blood Culture - Preliminary Blood NO GROWTH 24 HOURS 03/12/24 00:07 Blood Culture - Preliminary Blood NO GROWTH 24 HOURS PFSH All Active Problems (Updated 03/12/24 @ 00:02 by Julio César Bañuelos MD) CKD (chronic kidney disease) stage 5, GFR less than 15 ml/min (Acute) Hyperlipidemia (Acute) Orthostatic hypotension (Acute) Neuritis of left foot (Acute) 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 (Acute) Pain in joint, foot, left (Acute) Presence of transplanted liver (Acute) Thrombosis of right cephalic vein (Acute) Folate deficiency (Acute) Sepsis (Acute) IDDM (insulin dependent diabetes mellitus) (Chronic) Obesity (BMI 30.0-34.9) (Chronic) Heme + stool (Acute) Hypoglycemia (Acute) Hypokalemia (Acute) Hypomagnesemia (Acute) Pleuritic chest pain (Acute) Staphylococcus aureus bacteremia (Acute) Hypotension (Acute) Thrombocytopenia (Chronic) Leukocytosis (Acute) Coagulopathy (Acute) Hypoproteinemia (Acute) Hypocalcemia (Acute) Gram-positive cocci bacteremia (Acute 08/23/22) Septic arthritis of knee, left (Acute ~08/09/22) S/P washout/debridement: 08/24/2022 Hyperbilirubinemia (Acute) Acute dehydration (Acute) ADHD (Acute) Crohn's disease in remission (Acute) Anemia of chronic disease (Acute) Acute exacerbation of chronic low back pain (Acute) Back pain (Acute) Stoma bleed (Acute) Chest pain (Acute) H/O malignant neoplasm of colon (Acute) Anemia, blood loss (Acute) GI bleed (Chronic) Medical History Cirrhosis of liver Hepatorenal syndrome Hyposmia Adjustment disorder Chronic low back pain Vitamin B12 deficiency Vitamin D deficiency HADLEY (obstructive sleep apnea) GERD (gastroesophageal reflux disease) Depression with anxiety Diabetes mellitus type 2 in obese PTSD (post-traumatic stress disorder) Colon cancer Surgical History Hx of liver transplant S/P D&C (status post dilation and curettage) S/P LEEP H/O ileostomy History of endometrial ablation S/P colectomy Family History Mother , age 49 due to heart disease Diabetes Heart disease Hypertension Father Heart disease Social History Smoking/Tobacco Use Status: Never Smoking risk assessment performed?: Yes Alcohol Intake: never Drug use: Never Substance use type: does not use Household members: family Housing: house Number of Children: 5 number of grandchildren: 15 Pets and animals: Yes Pets and animals: dog(s) What type of physical activity do you participate in: none Seatbelt use: always Do you feel safe at home: Yes Do you feel safe in your relationship?: Yes Time Spent with Patient Time Spent with Patient: <45 minutes Time was spent: preparing to see the patient(eg.review tests), obtaining and/or reviewing separately otained hiistory, ordering medications,tests, procedures, referring, communicating with other health managed care specialist, indepentently interpreting results, counseling the patient and care coordination
[2024-03-13] MEDS: Insulin Aspart 300 UNITS/3 ML PEN SC (12:00)
--- NOTE | 2024-03-13 12:00 | PDOC.CMDIS ---
Date of service: 03/13/24 Time of Service: 12:00 LACE Index Scoring Tool Questions: Length of Stay (in days): 1 Was the patient admitted via the E.D.?: Yes Comorbidities: Diabetes w/o Complication, Chronic Pulmonary Disease, Any Tumor and Liver or Renal Disease E.D. Visits: 1 Answers: Total Score: 10 Risk of Readmission: High Risk Care Management Discharge Plan Reason for Hospitalization: orthostatic hypotension Discharge Plan: Janice will be discharged home with no new services. She will follow up with her community providers and plan of care and transport with her son's girlfriend. Patient/Family Education Needs: review of discharge instructions, limitations, follow up plan and discuss Ask Me Three. SDOK Health Related Social Needs: No Data to Display
== END 2024-03-13 15:13 | disposition home or self-care (01) | DRG 312 ==
LOC: ER 03-12 00:20 → MS 03-12 01:12
PROVIDERS: Admitting Provider Student in an Organized Health Care Education/Training Program; Emergency Provider Emergency Medicine; PCP Family Medicine; Visit Provider Student in an Organized Health Care Education/Training Program
DX: I95.1 Orthostatic hypotension (principal); Z94.4 Liver transplant status; N18.5 Chronic kidney disease, stage 5; E11.22 Type 2 diabetes mellitus with diabetic chronic kidney disease; D69.6 Thrombocytopenia, unspecified; E78.5 Hyperlipidemia, unspecified; D72.829 Elevated white blood cell count, unspecified; Z79.621 Long term (current) use of calcineurin inhibitor; Z79.624 Long term (current) use of inhibitors of nucleotide synthesis; Z85.038 Personal history of other malignant neoplasm of large intestine; Z90.49 Acquired absence of other specified parts of digestive tract; Z93.3 Colostomy status; Z79.84 Long term (current) use of oral hypoglycemic drugs; Z79.4 Long term (current) use of insulin; M19.072 Primary osteoarthritis, left ankle and foot; E53.8 Deficiency of other specified B group vitamins; E55.9 Vitamin D deficiency, unspecified; G47.33 Obstructive sleep apnea (adult) (pediatric); K21.9 Gastro-esophageal reflux disease without esophagitis; F43.10 Post-traumatic stress disorder, unspecified
CPT/HCPCS: 00123; 36415; 80053; 87040; 87493; 87637; 93005; 96361; 96365; 99285; 71045; 81003; 81015; 83735; 84443; 84484; 85025; 85610; 87086; 93010; 99222; 99239; J0696; J1815; J3490; J7517

== ENCOUNTER 2024-03-20 02:51 | Outpatient (CLI) | payer MEDICARE, MEDICAID, SELFPAY ==
[2024-03-20 09:05] LABS: Abs Immature Grans 0.04 10^3/uL (0.0-0.06); Absolute Basophil Count 0.03 10^3/uL (0.0-0.2); Absolute Lymphocyte Count 1.78 10^3/uL (1.2-3.4); Absolute Monocyte Count 0.39 10^3/uL (0.1-0.8); Absolute Neutrophil Count 6.29 10^3/uL (1.2-6.7); Basophils % 0.3 %; Eosinophils % 1.2 %; HCT 38.8 % (36.0-46.0); HGB 12.8 g/dL (11.2-15.7); Immature Grans % 0.5 %; Lymphocytes % 20.6 %; MCH 30.9 pg (27.0-33.0); MCV 94 fL (80-95); MPV 10.2 fL (8.0-11.0); Monocytes % 4.5 %; Neutrophils % 72.9 %; Platelet Count 157 10^3/uL (130-400); RBC 4.14 10^6/uL (3.93-5.22); RDW 12.5 % (11.7-14.6); RDW-SD 42.5 fL; WBC 8.63 10^3/uL (4.4-10.8)
[2024-03-20 09:30] LABS: ALT 57 U/L (14-59); AST 30 U/L (15-37); Albumin 3.8 g/dL (3.4-5.0); Alkaline Phosphatase 150 U/L (46-116); Anion Gap 12.5 mmol/L (3-11); BUN 49 mg/dL (7-18); Bilirubin, Total 0.32 mg/dL (0.2-1.0); CO2 19.5 mmol/L (21.0-32.0); CREATININE 2.6 mg/dL (0.55-1.02); Calcium 9.4 mg/dL (8.5-10.1); Chloride 106 mmol/L (98-107); Estimated GFR 20.75 (mL/min/1.73m2); Glucose 131 mg/dL (74-106); PHOSPHORUS 5.1 mg/dL (2.6-4.7); Potassium 5.4 mmol/L (3.5-5.1); Sodium 138 mmol/L (136-145); Total Protein 7.6 g/dL (6.4-8.2)
[2024-03-21 07:37] LABS: Tacrolimus 6.6 ng/mL (See Note)
[2024-03-22 14:05] LABS: Cystatin C, S 3.11 mg/L; eGFR by Cystatin C 16 mL/min/BSA (>60)
[2024-03-22 22:55] LABS: CMV DNA Detect/Quant, P Undetected IU/mL (Undetected)
== END 2024-03-20 02:52 | disposition home or self-care (01) ==
LOC: LBO 02:51
PROVIDERS: PCP Family Medicine; Visit Provider Internal Medicine Gastroenterology
DX: Z79.899 Other long term (current) drug therapy (principal); Z94.4 Liver transplant status
CPT/HCPCS: 36415; 80053; 82610; 80197; 83735; 84100; 85025; 87497

== ENCOUNTER 2024-04-03 02:44 | Outpatient (CLI) | payer MEDICARE, MEDICAID, SELFPAY ==
[2024-04-03 09:54] LABS: Abs Immature Grans 0.03 10^3/uL (0.0-0.06); Absolute Basophil Count 0.02 10^3/uL (0.0-0.2); Absolute Lymphocyte Count 1.14 10^3/uL (1.2-3.4); Absolute Neutrophil Count 3.46 10^3/uL (1.2-6.7); Basophils % 0.4 %; Eosinophils % 1.9 %; HCT 34.3 % (36.0-46.0); HGB 11.3 g/dL (11.2-15.7); Immature Grans % 0.6 %; Lymphocytes % 22.1 %; MCHC 32.9 % (32.0-36.0); MCV 94 fL (80-95); MPV 9.9 fL (8.0-11.0); Monocytes % 7.8 %; Neutrophils % 67.2 %; Platelet Count 161 10^3/uL (130-400); RBC 3.65 10^6/uL (3.93-5.22); RDW 13.2 % (11.7-14.6); RDW-SD 46.1 fL; WBC 5.15 10^3/uL (4.4-10.8)
[2024-04-03 10:39] LABS: ALT 53 U/L (14-59); AST 27 U/L (15-37); Albumin 3.6 g/dL (3.4-5.0); Alkaline Phosphatase 123 U/L (46-116); Anion Gap 11.7 mmol/L (3-11); BUN 36 mg/dL (7-18); CO2 16.3 mmol/L (21.0-32.0); CREATININE 1.9 mg/dL (0.55-1.02); Calcium 9.5 mg/dL (8.5-10.1); Chloride 114 mmol/L (98-107); Estimated GFR 30.23 (mL/min/1.73m2); Glucose 146 mg/dL (74-106); Magnesium 1.8 mg/dL (1.8-2.4); PHOSPHORUS 3.8 mg/dL (2.6-4.7); Potassium 4.7 mmol/L (3.5-5.1); Sodium 142 mmol/L (136-145); Total Protein 6.6 g/dL (6.4-8.2)
[2024-04-04 10:58] LABS: Tacrolimus 5.1 ng/mL (See Note)
[2024-04-05 15:36] LABS: CMV DNA Detect/Quant, P Undetected IU/mL (Undetected)
[2024-04-06 07:11] LABS: Cystatin C, S 2.47 mg/L; eGFR by Cystatin C 22 mL/min/BSA (>60)
== END 2024-04-03 02:45 | disposition home or self-care (01) ==
LOC: LBO 02:44
PROVIDERS: PCP Family Medicine; Visit Provider Internal Medicine Gastroenterology
DX: Z79.899 Other long term (current) drug therapy (principal); Z94.4 Liver transplant status
CPT/HCPCS: 36415; 80053; 82610; 80197; 83735; 84100; 85025; 87497

== ENCOUNTER 2024-04-17 03:08 | Outpatient (CLI) | payer MEDICARE, MEDICAID, SELFPAY ==
[2024-04-17 09:27] LABS: Abs Immature Grans 0.03 10^3/uL (0.0-0.06); Absolute Basophil Count 0.03 10^3/uL (0.0-0.2); Absolute Lymphocyte Count 0.93 10^3/uL (1.2-3.4); Absolute Monocyte Count 0.39 10^3/uL (0.1-0.8); Absolute Neutrophil Count 3.13 10^3/uL (1.2-6.7); Basophils % 0.7 %; Eosinophils % 2.2 %; HCT 34.1 % (36.0-46.0); HGB 11.4 g/dL (11.2-15.7); Immature Grans % 0.7 %; Lymphocytes % 20.2 %; MCH 31.7 pg (27.0-33.0); MCHC 33.4 % (32.0-36.0); MCV 95 fL (80-95); MPV 9.4 fL (8.0-11.0); Monocytes % 8.5 %; Neutrophils % 67.7 %; Platelet Count 147 10^3/uL (130-400); RDW 13.4 % (11.7-14.6); RDW-SD 46.5 fL; WBC 4.61 10^3/uL (4.4-10.8)
[2024-04-17 09:55] LABS: ALT 58 U/L (14-59); AST 32 U/L (15-37); Albumin 3.3 g/dL (3.4-5.0); Alkaline Phosphatase 102 U/L (46-116); BUN 22 mg/dL (7-18); Bilirubin, Total 0.43 mg/dL (0.2-1.0); CREATININE 1.6 mg/dL (0.55-1.02); Calcium 9.1 mg/dL (8.5-10.1); Chloride 112 mmol/L (98-107); Estimated GFR 37.15 (mL/min/1.73m2); Glucose 138 mg/dL (74-106); Magnesium 1.6 mg/dL (1.8-2.4); PHOSPHORUS 3.4 mg/dL (2.6-4.7); Potassium 4.8 mmol/L (3.5-5.1); Sodium 144 mmol/L (136-145); Total Protein 6.2 g/dL (6.4-8.2)
[2024-04-18 11:54] LABS: Tacrolimus 5.2 ng/mL (See Note)
[2024-04-19 17:28] LABS: Cystatin C, S 2.21 mg/L; eGFR by Cystatin C 25 mL/min/BSA (>60)
[2024-04-19 18:42] LABS: CMV DNA Detect/Quant, P Undetected IU/mL (Undetected)
== END 2024-04-17 03:09 | disposition home or self-care (01) ==
LOC: LBO 03:08
PROVIDERS: PCP Family Medicine; Visit Provider Internal Medicine Gastroenterology
DX: Z79.899 Other long term (current) drug therapy (principal); Z94.4 Liver transplant status
CPT/HCPCS: 36415; 80053; 82610; 80197; 83735; 84100; 85025; 87497

== ENCOUNTER 2024-04-28 16:07 | Outpatient (REF) | payer MEDICARE, MEDICAID, SELFPAY ==
[2024-04-28 22:15] LABS: COMMENT (LAB VIEW ONLY) 181.34 mg/dL
== END 2024-04-28 16:08 | disposition home or self-care (01) ==
LOC: NCHCN 16:07
PROVIDERS: PCP Family Medicine; Visit Provider Family Medicine
DX: E11.9 Type 2 diabetes mellitus without complications (principal)
CPT/HCPCS: 82043; 82570

== ENCOUNTER 2024-05-01 11:50 | Outpatient (CLI) | payer MEDICARE, MEDICAID, SELFPAY ==
[2024-05-01 09:22] LABS: Abs Immature Grans 0.03 10^3/uL (0.0-0.06); Absolute Basophil Count 0.02 10^3/uL (0.0-0.2); Absolute Eosinophil Count 0.11 10^3/uL (0.0-0.7); Absolute Lymphocyte Count 0.85 10^3/uL (1.2-3.4); Absolute Monocyte Count 0.36 10^3/uL (0.1-0.8); Absolute Neutrophil Count 2.94 10^3/uL (1.2-6.7); Basophils % 0.5 %; Eosinophils % 2.6 %; HCT 34.5 % (36.0-46.0); HGB 11.4 g/dL (11.2-15.7); Immature Grans % 0.7 %; Lymphocytes % 19.7 %; MCH 31.3 pg (27.0-33.0); MCV 95 fL (80-95); MPV 9.9 fL (8.0-11.0); Monocytes % 8.4 %; Neutrophils % 68.1 %; Platelet Count 173 10^3/uL (130-400); RBC 3.64 10^6/uL (3.93-5.22); RDW 13.3 % (11.7-14.6); RDW-SD 46.3 fL; WBC 4.31 10^3/uL (4.4-10.8)
[2024-05-01 10:00] LABS: ALT 48 U/L (14-59); AST 36 U/L (15-37); Albumin 3.5 g/dL (3.4-5.0); Alkaline Phosphatase 109 U/L (46-116); Anion Gap 10.4 mmol/L (3-11); BUN 33 mg/dL (7-18); Bilirubin, Total 0.4 mg/dL (0.2-1.0); CO2 21.6 mmol/L (21.0-32.0); CREATININE 1.8 mg/dL (0.55-1.02); Calcium 9.1 mg/dL (8.5-10.1); Chloride 113 mmol/L (98-107); Estimated GFR 32.25 (mL/min/1.73m2); Glucose 152 mg/dL (74-106); Magnesium 1.8 mg/dL (1.8-2.4); PHOSPHORUS 3.2 mg/dL (2.6-4.7); Potassium 4.3 mmol/L (3.5-5.1); Sodium 145 mmol/L (136-145); Total Protein 6.5 g/dL (6.4-8.2)
[2024-05-02 10:28] LABS: Tacrolimus 4.8 ng/mL (See Note)
[2024-05-03 12:45] LABS: CMV DNA Detect/Quant, P Undetected IU/mL (Undetected)
[2024-05-03 14:35] LABS: Cystatin C, S 2.18 mg/L; eGFR by Cystatin C 26 mL/min/BSA (>60)
== END 2024-05-01 11:51 | disposition home or self-care (01) ==
LOC: LBO 11:50
PROVIDERS: PCP Family Medicine; Visit Provider Internal Medicine Gastroenterology
DX: Z94.4 Liver transplant status (principal); Z79.899 Other long term (current) drug therapy
CPT/HCPCS: 36415; 80053; 82610; 80197; 83735; 84100; 85025; 87496; 87497

== ENCOUNTER 2024-05-15 02:51 | Outpatient (CLI) | payer MEDICARE, MEDICAID, SELFPAY ==
[2024-05-15 09:03] LABS: Abs Immature Grans 0.03 10^3/uL (0.0-0.06); Absolute Basophil Count 0.03 10^3/uL (0.0-0.2); Absolute Eosinophil Count 0.09 10^3/uL (0.0-0.7); Absolute Monocyte Count 0.47 10^3/uL (0.1-0.8); Absolute Neutrophil Count 4.95 10^3/uL (1.2-6.7); Basophils % 0.4 %; Eosinophils % 1.3 %; HCT 39.1 % (36.0-46.0); Immature Grans % 0.4 %; Lymphocytes % 18.9 %; MCH 31.4 pg (27.0-33.0); MCHC 33.2 % (32.0-36.0); MCV 94 fL (80-95); MPV 9.5 fL (8.0-11.0); Monocytes % 6.8 %; Neutrophils % 72.2 %; Platelet Count 184 10^3/uL (130-400); RBC 4.14 10^6/uL (3.93-5.22); RDW 12.8 % (11.7-14.6); RDW-SD 44.2 fL; WBC 6.87 10^3/uL (4.4-10.8)
[2024-05-15 09:43] LABS: ALT 46 U/L (14-59); AST 31 U/L (15-37); Albumin 4.2 g/dL (3.4-5.0); Alkaline Phosphatase 137 U/L (46-116); Anion Gap 15.8 mmol/L (3-11); BUN 45 mg/dL (7-18); Bilirubin, Total 0.4 mg/dL (0.2-1.0); CO2 15.2 mmol/L (21.0-32.0); CREATININE 2.3 mg/dL (0.55-1.02); Calcium 9.2 mg/dL (8.5-10.1); Chloride 108 mmol/L (98-107); Estimated GFR 24.04 (mL/min/1.73m2); Glucose 191 mg/dL (74-106); Magnesium 2.3 mg/dL (1.8-2.4); Potassium 4.9 mmol/L (3.5-5.1); Sodium 139 mmol/L (136-145); Total Protein 7.5 g/dL (6.4-8.2)
[2024-05-15 09:54] LABS: PHOSPHORUS 4.9 mg/dL (2.6-4.7)
[2024-05-16 11:46] LABS: Tacrolimus 6.5 ng/mL (See Note)
[2024-05-17 14:11] LABS: CMV DNA Detect/Quant, P Undetected IU/mL (Undetected)
[2024-05-18 10:08] LABS: Cystatin C, S 2.71 mg/L; eGFR by Cystatin C 19 mL/min/BSA (>60)
== END 2024-05-15 02:52 | disposition home or self-care (01) ==
LOC: LBO 02:51
PROVIDERS: PCP Family Medicine; Visit Provider Internal Medicine Gastroenterology
DX: Z79.899 Other long term (current) drug therapy (principal); Z94.4 Liver transplant status
CPT/HCPCS: 36415; 80053; 82610; 80197; 83735; 84100; 85025; 87497

== ENCOUNTER 2024-05-24 02:11 | Outpatient (CLI) | payer MEDICARE, MEDICAID, SELFPAY ==
--- NOTE | 2024-05-24 09:25 | DI.MAMMO_ITS ---
Exam(s) MAMMO SCREENING EXAM: MAMMO SCREENING CLINICAL HISTORY: Screening, Z12.39 TECHNIQUE: Bilateral full field digital CC and MLO mammographic images were obtained with 3D tomosyn thesis and utilizing computer aided detection (CAD). COMPARISON: Available for comparison. FINDINGS: Masses/Architectural Distortion: None seen. Microcalcifications: No suspicious pleomorphic-type are seen. Skin Thickening/Nipple Retraction: None. IMPRESSION: 1. No significant interval change with no specific features of malignancy noted. 2. Unless there is more urgent need, screening mammography is recommended, as per [employer] guidelines. BI-RADS Category 1 - Negative Breast Density - Category A - Almost entirely fatty Breast density category C or D implies that the patient has dense breast tissue. Dense breast tissue is very common and is not abnormal but dense breast tissue can make it harder to find cancer on a ma mmogram. Also, dense breast tissue may increase their breast cancer risk. This information about the result of the mammogram report was provided to the patient to raise their awareness. Use this report when you speak with the patient about their risks for breast cancer, which includes their family hist ory. At that time, you may recommend for more screening tests (Ultrasound or MRI) as they might be us eful based on their risk. A negative radiographic report should not delay biopsy if a dominant or clinically suspicious mass is present. Up to ten percent of cancers are not identified on mammography. A negative report may reinforce clinical impression. Adenosis and dense breasts may obscure an underlying neoplasm. False positive reports average 6 to 10%. Patient will receive a letter notifying them of these results.
== END 2024-05-24 02:31 ==
LOC: DI 02:11
PROVIDERS: PCP Family Medicine; Visit Provider Family Medicine
DX: Z12.31 Encounter for screening mammogram for malignant neoplasm of breast (principal); R92.313 Mammographic fatty tissue density, bilateral breasts
CPT/HCPCS: 77063; 77067

== ENCOUNTER 2024-05-29 03:36 | Outpatient (CLI) | payer MEDICARE, MEDICAID, SELFPAY ==
[2024-05-29 09:02] LABS: Abs Immature Grans 0.03 10^3/uL (0.0-0.06); Absolute Basophil Count 0.02 10^3/uL (0.0-0.2); Absolute Eosinophil Count 0.09 10^3/uL (0.0-0.7); Absolute Monocyte Count 0.39 10^3/uL (0.1-0.8); Absolute Neutrophil Count 2.91 10^3/uL (1.2-6.7); Basophils % 0.5 %; HCT 34.9 % (36.0-46.0); HGB 11.2 g/dL (11.2-15.7); Immature Grans % 0.7 %; Lymphocytes % 22.5 %; MCH 31.4 pg (27.0-33.0); MCHC 32.1 % (32.0-36.0); MCV 98 fL (80-95); MPV 9.7 fL (8.0-11.0); Monocytes % 8.8 %; Neutrophils % 65.5 %; Platelet Count 144 10^3/uL (130-400); RBC 3.57 10^6/uL (3.93-5.22); RDW 12.8 % (11.7-14.6); RDW-SD 46.1 fL; WBC 4.44 10^3/uL (4.4-10.8)
[2024-05-29 09:54] LABS: ALT 54 U/L (14-59); AST 40 U/L (15-37); Albumin 3.5 g/dL (3.4-5.0); Alkaline Phosphatase 106 U/L (46-116); Anion Gap 5.9 mmol/L (3-11); BUN 24 mg/dL (7-18); Bilirubin, Total 0.3 mg/dL (0.2-1.0); CO2 25.1 mmol/L (21.0-32.0); CREATININE 1.4 mg/dL (0.55-1.02); Calcium 9.2 mg/dL (8.5-10.1); Chloride 113 mmol/L (98-107); Estimated GFR 43.61 (mL/min/1.73m2); Glucose 149 mg/dL (74-106); PHOSPHORUS 3.9 mg/dL (2.6-4.7); Potassium 4.8 mmol/L (3.5-5.1); Sodium 144 mmol/L (136-145); Total Protein 6.5 g/dL (6.4-8.2)
[2024-05-30 11:09] LABS: Tacrolimus 2.8 ng/mL (See Note)
[2024-05-31 14:55] LABS: CMV DNA Detect/Quant, P Undetected IU/mL (Undetected)
[2024-06-02 10:18] LABS: Cystatin C, S 2.04 mg/L; eGFR by Cystatin C 28 mL/min/BSA (>60)
== END 2024-05-29 03:37 | disposition home or self-care (01) ==
LOC: LBO 03:36
PROVIDERS: PCP Family Medicine; Visit Provider Internal Medicine Gastroenterology
DX: Z79.899 Other long term (current) drug therapy (principal); Z94.4 Liver transplant status
CPT/HCPCS: 36415; 80053; 82610; 80197; 83735; 84100; 85025; 87497

== ENCOUNTER 2024-06-12 03:18 | Outpatient (CLI) | payer MEDICARE, MEDICAID, SELFPAY ==
[2024-06-12 09:06] LABS: Abs Immature Grans 0.03 10^3/uL (0.0-0.06); Absolute Basophil Count 0.03 10^3/uL (0.0-0.2); Absolute Eosinophil Count 0.09 10^3/uL (0.0-0.7); Absolute Lymphocyte Count 1.13 10^3/uL (1.2-3.4); Absolute Monocyte Count 0.46 10^3/uL (0.1-0.8); Absolute Neutrophil Count 3.65 10^3/uL (1.2-6.7); Basophils % 0.6 %; Eosinophils % 1.7 %; HCT 36.5 % (36.0-46.0); HGB 11.8 g/dL (11.2-15.7); Immature Grans % 0.6 %; MCH 31.1 pg (27.0-33.0); MCHC 32.3 % (32.0-36.0); MCV 96 fL (80-95); MPV 9.4 fL (8.0-11.0); Monocytes % 8.5 %; Neutrophils % 67.6 %; Platelet Count 168 10^3/uL (130-400); RBC 3.79 10^6/uL (3.93-5.22); RDW 12.8 % (11.7-14.6); RDW-SD 44.9 fL; WBC 5.39 10^3/uL (4.4-10.8)
[2024-06-12 09:55] LABS: ALT 56 U/L (14-59); AST 35 U/L (15-37); Albumin 3.8 g/dL (3.4-5.0); Alkaline Phosphatase 113 U/L (46-116); Anion Gap 8.7 mmol/L (3-11); BUN 39 mg/dL (7-18); Bilirubin, Total 0.3 mg/dL (0.2-1.0); CO2 22.3 mmol/L (21.0-32.0); CREATININE 1.5 mg/dL (0.55-1.02); Calcium 9.2 mg/dL (8.5-10.1); Chloride 110 mmol/L (98-107); Estimated GFR 40.14 (mL/min/1.73m2); Glucose 146 mg/dL (74-106); PHOSPHORUS 4.3 mg/dL (2.6-4.7); Potassium 4.4 mmol/L (3.5-5.1); Sodium 141 mmol/L (136-145); Total Protein 7.1 g/dL (6.4-8.2)
[2024-06-13 10:35] LABS: Tacrolimus 3.1 ng/mL (See Note)
[2024-06-14 14:15] LABS: CMV DNA Detect/Quant, P Undetected IU/mL (Undetected)
[2024-06-14 17:50] LABS: Cystatin C, S 2.07 mg/L; eGFR by Cystatin C 28 mL/min/BSA (>60)
== END 2024-06-12 03:19 | disposition home or self-care (01) ==
LOC: LBO 03:18
PROVIDERS: PCP Family Medicine; Visit Provider Internal Medicine Gastroenterology
DX: Z79.899 Other long term (current) drug therapy (principal); Z94.4 Liver transplant status
CPT/HCPCS: 36415; 80053; 82610; 80197; 83735; 84100; 85025; 87497

== ENCOUNTER 2024-06-26 09:31 | Outpatient (CLI) | payer MEDICARE, MEDICAID, SELFPAY ==
[2024-06-26 09:01] LABS: Abs Immature Grans 0.04 10^3/uL (0.0-0.06); Absolute Basophil Count 0.02 10^3/uL (0.0-0.2); Absolute Eosinophil Count 0.11 10^3/uL (0.0-0.7); Absolute Lymphocyte Count 1.19 10^3/uL (1.2-3.4); Absolute Monocyte Count 0.41 10^3/uL (0.1-0.8); Basophils % 0.4 %; HCT 36.9 % (36.0-46.0); HGB 12.3 g/dL (11.2-15.7); Immature Grans % 0.7 %; Lymphocytes % 22.2 %; MCH 31.3 pg (27.0-33.0); MCHC 33.3 % (32.0-36.0); MCV 94 fL (80-95); MPV 9.4 fL (8.0-11.0); Monocytes % 7.6 %; Neutrophils % 67.1 %; Platelet Count 164 10^3/uL (130-400); RBC 3.93 10^6/uL (3.93-5.22); RDW 12.2 % (11.7-14.6); RDW-SD 42.4 fL; WBC 5.37 10^3/uL (4.4-10.8)
[2024-06-26 09:33] LABS: ALT 48 U/L (14-59); AST 32 U/L (15-37); Albumin 3.8 g/dL (3.4-5.0); Alkaline Phosphatase 119 U/L (46-116); Anion Gap 10.6 mmol/L (3-11); BUN 31 mg/dL (7-18); Bilirubin, Total 0.6 mg/dL (0.2-1.0); CO2 24.4 mmol/L (21.0-32.0); CREATININE 1.6 mg/dL (0.55-1.02); Calcium 9.3 mg/dL (8.5-10.1); Chloride 107 mmol/L (98-107); Estimated GFR 37.15 (mL/min/1.73m2); Glucose 131 mg/dL (74-106); Magnesium 1.7 mg/dL (1.8-2.4); Potassium 4.5 mmol/L (3.5-5.1); Sodium 142 mmol/L (136-145); Total Protein 6.8 g/dL (6.4-8.2)
[2024-06-27 09:19] LABS: Tacrolimus 4.4 ng/mL (See Note)
[2024-06-28 14:38] LABS: CMV DNA Detect/Quant, P Undetected IU/mL (Undetected)
[2024-06-28 20:53] LABS: Cystatin C, S 1.95 mg/L; eGFR by Cystatin C 30 mL/min/BSA (>60)
== END 2024-06-26 09:32 | disposition home or self-care (01) ==
LOC: LBO 09:31
PROVIDERS: PCP Family Medicine; Visit Provider Internal Medicine Gastroenterology
DX: Z94.4 Liver transplant status (principal); D84.9 Immunodeficiency, unspecified
CPT/HCPCS: 36415; 80053; 82610; 80197; 83735; 84100; 85025; 87497

== ENCOUNTER 2024-07-10 03:57 | Outpatient (CLI) | payer MEDICARE, MEDICAID, SELFPAY ==
[2024-07-10 08:58] LABS: Abs Immature Grans 0.02 10^3/uL (0.0-0.06); Absolute Basophil Count 0.02 10^3/uL (0.0-0.2); Absolute Eosinophil Count 0.07 10^3/uL (0.0-0.7); Absolute Lymphocyte Count 1.26 10^3/uL (1.2-3.4); Absolute Monocyte Count 0.47 10^3/uL (0.1-0.8); Basophils % 0.4 %; Eosinophils % 1.3 %; HCT 37.7 % (36.0-46.0); HGB 12.9 g/dL (11.2-15.7); Immature Grans % 0.4 %; Lymphocytes % 23.2 %; MCH 31.2 pg (27.0-33.0); MCHC 34.2 % (32.0-36.0); MCV 91 fL (80-95); MPV 9.7 fL (8.0-11.0); Monocytes % 8.6 %; Neutrophils % 66.1 %; Platelet Count 165 10^3/uL (130-400); RBC 4.13 10^6/uL (3.93-5.22); RDW 12.1 % (11.7-14.6); RDW-SD 40.1 fL; WBC 5.44 10^3/uL (4.4-10.8)
[2024-07-10 10:06] LABS: ALT 55 U/L (14-59); AST 35 U/L (15-37); Albumin 4.2 g/dL (3.4-5.0); Alkaline Phosphatase 128 U/L (46-116); Anion Gap 12.7 mmol/L (3-11); BUN 44 mg/dL (7-18); Bilirubin, Total 0.6 mg/dL (0.2-1.0); CO2 22.3 mmol/L (21.0-32.0); CREATININE 1.9 mg/dL (0.55-1.02); Calcium 9.3 mg/dL (8.5-10.1); Chloride 105 mmol/L (98-107); Estimated GFR 30.23 (mL/min/1.73m2); Glucose 134 mg/dL (74-106); Magnesium 2.1 mg/dL (1.8-2.4); PHOSPHORUS 4.5 mg/dL (2.6-4.7); Potassium 4.3 mmol/L (3.5-5.1); Sodium 140 mmol/L (136-145); Total Protein 7.6 g/dL (6.4-8.2)
[2024-07-12 13:26] LABS: CMV DNA Detect/Quant, P Undetected IU/mL (Undetected)
[2024-07-12 13:37] LABS: Cystatin C, S 2.13 mg/L; eGFR by Cystatin C 27 mL/min/BSA (>60)
== END 2024-07-10 03:58 | disposition home or self-care (01) ==
PROVIDERS: PCP Family Medicine; Visit Provider Internal Medicine Gastroenterology
DX: Z94.4 Liver transplant status (principal); D64.9 Anemia, unspecified; Z79.899 Other long term (current) drug therapy
CPT/HCPCS: 36415; 80053; 82610; 80197; 83735; 84100; 85025; 87497

== ENCOUNTER 2024-07-24 04:24 | Outpatient (CLI) | payer MEDICARE, MEDICAID, SELFPAY ==
[2024-07-24 09:27] LABS: Abs Immature Grans 0.02 10^3/uL (0.0-0.06); Absolute Basophil Count 0.02 10^3/uL (0.0-0.2); Absolute Eosinophil Count 0.07 10^3/uL (0.0-0.7); Absolute Lymphocyte Count 1.11 10^3/uL (1.2-3.4); Absolute Neutrophil Count 4.43 10^3/uL (1.2-6.7); Basophils % 0.3 %; Eosinophils % 1.2 %; HCT 36.5 % (36.0-46.0); HGB 12.5 g/dL (11.2-15.7); Immature Grans % 0.3 %; Lymphocytes % 18.3 %; MCH 31.5 pg (27.0-33.0); MCHC 34.2 % (32.0-36.0); MCV 92 fL (80-95); MPV 9.8 fL (8.0-11.0); Monocytes % 6.6 %; Neutrophils % 73.3 %; Platelet Count 164 10^3/uL (130-400); RBC 3.97 10^6/uL (3.93-5.22); RDW 12.2 % (11.7-14.6); RDW-SD 41.1 fL; WBC 6.05 10^3/uL (4.4-10.8)
[2024-07-24 10:20] LABS: ALT 57 U/L (14-59); AST 33 U/L (15-37); Albumin 3.9 g/dL (3.4-5.0); Alkaline Phosphatase 122 U/L (46-116); Anion Gap 11.4 mmol/L (3-11); BUN 33 mg/dL (7-18); Bilirubin, Total 0.5 mg/dL (0.2-1.0); CO2 24.6 mmol/L (21.0-32.0); CREATININE 1.5 mg/dL (0.55-1.02); Calcium 9.1 mg/dL (8.5-10.1); Chloride 108 mmol/L (98-107); Estimated GFR 40.14 (mL/min/1.73m2); Glucose 118 mg/dL (74-106); Magnesium 1.8 mg/dL (1.8-2.4); Potassium 4.1 mmol/L (3.5-5.1); Sodium 144 mmol/L (136-145); Total Protein 7.1 g/dL (6.4-8.2)
[2024-07-25 10:12] LABS: Tacrolimus 4.5 ng/mL (See Note)
[2024-07-26 14:24] LABS: CMV DNA Detect/Quant, P Undetected IU/mL (Undetected)
[2024-07-27 14:08] LABS: Cystatin C, S 1.85 mg/L; eGFR by Cystatin C 32 mL/min/BSA (>60)
== END 2024-07-24 04:25 | disposition home or self-care (01) ==
PROVIDERS: PCP Family Medicine; Visit Provider Internal Medicine Gastroenterology
DX: Z94.4 Liver transplant status (principal); Z79.899 Other long term (current) drug therapy
CPT/HCPCS: 36415; 80053; 82610; 87340; 80197; 83735; 84100; 85025; 87497

== ENCOUNTER 2024-08-07 00:44 | Outpatient (CLI) | payer MEDICARE, MEDICAID, SELFPAY ==
[2024-08-07 09:09] LABS: Abs Immature Grans 0.03 10^3/uL (0.0-0.06); Absolute Basophil Count 0.02 10^3/uL (0.0-0.2); Absolute Lymphocyte Count 1.12 10^3/uL (1.2-3.4); Absolute Monocyte Count 0.37 10^3/uL (0.1-0.8); Absolute Neutrophil Count 4.16 10^3/uL (1.2-6.7); Basophils % 0.3 %; Eosinophils % 1.7 %; HCT 37.5 % (36.0-46.0); HGB 12.4 g/dL (11.2-15.7); Immature Grans % 0.5 %; Lymphocytes % 19.3 %; MCH 30.5 pg (27.0-33.0); MCHC 33.1 % (32.0-36.0); MCV 92 fL (80-95); MPV 9.4 fL (8.0-11.0); Monocytes % 6.4 %; Neutrophils % 71.8 %; Platelet Count 157 10^3/uL (130-400); RBC 4.07 10^6/uL (3.93-5.22); RDW 12.2 % (11.7-14.6); RDW-SD 40.8 fL
[2024-08-07 09:48] LABS: ALT 57 U/L (14-59); AST 30 U/L (15-37); Albumin 3.8 g/dL (3.4-5.0); Alkaline Phosphatase 118 U/L (46-116); Anion Gap 9.1 mmol/L (3-11); BUN 27 mg/dL (7-18); Bilirubin, Total 0.6 mg/dL (0.2-1.0); CO2 27.9 mmol/L (21.0-32.0); CREATININE 1.5 mg/dL (0.55-1.02); Calcium 9.2 mg/dL (8.5-10.1); Chloride 107 mmol/L (98-107); Estimated GFR 40.14 (mL/min/1.73m2); Glucose 94 mg/dL (74-106); Magnesium 1.8 mg/dL (1.8-2.4); PHOSPHORUS 3.7 mg/dL (2.6-4.7); Potassium 4.3 mmol/L (3.5-5.1); Sodium 144 mmol/L (136-145); Total Protein 6.9 g/dL (6.4-8.2)
[2024-08-09 19:23] LABS: CMV DNA Detect/Quant, P Undetected IU/mL (Undetected)
[2024-08-09 21:04] LABS: HBV DNA Detect/Quant, PCR Undetected IU/mL (Undetected)
[2024-08-12 11:34] LABS: Cystatin C, S 1.95 mg/L; eGFR by Cystatin C 30 mL/min/BSA (>60)
== END 2024-08-07 00:45 | disposition home or self-care (01) ==
LOC: LBO 00:45
PROVIDERS: PCP Family Medicine; Visit Provider Internal Medicine Gastroenterology
DX: Z94.4 Liver transplant status (principal); Z79.899 Other long term (current) drug therapy
CPT/HCPCS: 36415; 80053; 82610; 87517; 80197; 83735; 84100; 85025; 87497

== ENCOUNTER 2024-08-08 01:48 | Outpatient (CLI) | payer MEDICARE, MEDICAID, SELFPAY ==
--- NOTE | 2024-08-08 | DI.DEXA_ITS ---
Exam(s) XR DEXA BONE DENSITY W/WO ESCOBAR EXAM: XR DEXA BONE DENSITY W/WO ESCOBAR CLINICAL HISTORY: Long-term systemic steroid user, Z79.52; h/o liver transplant HCC, Z94.4 TECHNIQUE: COMPARISON: DX DEXA BONE DENSITY WITH ESCOBAR from 12/08/2016 FINDINGS: Lateral Spine Image: Unremarkable. No compression deformities identified. Left hip: Total T-Score: -0.7. This compares to 0.0 on the prior examination. Total Z-Score: 0.1 T- and Z-scores: There is no evidence of osteoporosis. Lumbar Spine: Total T-Score: -0.9. This compares to 0.3 on the prior examination. Total Z-Score: 0.4 T- and Z-scores: Within normal limits. IMPRESSION: No evidence of osteoporosis.
== END 2024-08-08 02:08 ==
LOC: DI 01:48
PROVIDERS: PCP Family Medicine; Visit Provider Internal Medicine Gastroenterology
DX: Z13.820 Encounter for screening for osteoporosis (principal); Z79.52 Long term (current) use of systemic steroids; Z94.4 Liver transplant status
CPT/HCPCS: 77080

== ENCOUNTER 2024-09-04 03:07 | Outpatient (CLI) | payer MEDICARE, MEDICAID, SELFPAY ==
[2024-09-04 09:10] LABS: Abs Immature Grans 0.02 10^3/uL (0.0-0.06); HCT 34.9 % (36.0-46.0); HGB 11.7 g/dL (11.2-15.7); Immature Grans % 0.3 %; MCH 30.9 pg (27.0-33.0); MCHC 33.5 % (32.0-36.0); MCV 92 fL (80-95); MPV 9.6 fL (8.0-11.0); Platelet Count 166 10^3/uL (130-400); RBC 3.79 10^6/uL (3.93-5.22); RDW 12.6 % (11.7-14.6); RDW-SD 41.5 fL; WBC 6.39 10^3/uL (4.4-10.8)
[2024-09-04 09:35] LABS: ALT 56 U/L (14-59); AST 34 U/L (15-37); Albumin 3.6 g/dL (3.4-5.0); Alkaline Phosphatase 116 U/L (46-116); Anion Gap 9.0 mmol/L (3-11); BUN 28 mg/dL (7-18); Bilirubin, Total 0.5 mg/dL (0.2-1.0); CO2 27.0 mmol/L (21.0-32.0); Calcium 9.1 mg/dL (8.5-10.1); Chloride 107 mmol/L (98-107); Estimated GFR 43.61 (mL/min/1.73m2); Glucose 131 mg/dL (74-106); Magnesium 1.8 mg/dL (1.8-2.4); Potassium 4.5 mmol/L (3.5-5.1); Sodium 143 mmol/L (136-145); Total Protein 6.9 g/dL (6.4-8.2)
== END 2024-09-04 03:08 | disposition home or self-care (01) ==
LOC: LBO 03:07
PROVIDERS: PCP Family Medicine; Visit Provider Internal Medicine Gastroenterology
DX: Z94.4 Liver transplant status (principal)
CPT/HCPCS: 36415; 80053; 82610; 80197; 83735; 84100; 85025; 87497

== ENCOUNTER 2024-11-10 13:40 | Outpatient (REF) | payer MEDICARE, MEDICAID, SELFPAY ==
[2024-11-10 15:59] LABS: HCT 38.8 % (36.0-46.0); HGB 13.1 g/dL (11.2-15.7); MCH 30.6 pg (27.0-33.0); MCHC 33.8 % (32.0-36.0); MCV 91 fL (80-95); MPV 10.6 fL (8.0-11.0); Platelet Count 199 10^3/uL (130-400); RBC 4.28 10^6/uL (3.93-5.22); RDW 12.4 % (11.7-14.6); RDW-SD 41.0 fL; WBC 6.54 10^3/uL (4.4-10.8)
[2024-11-10 16:09] LABS: ESR 5 mm/hr (0-30)
[2024-11-10 16:14] LABS: Creatine Kinase 18 U/L (26-192)
[2024-11-10 16:15] LABS: C-Reactive Protein < 0.50 mg/dL (<or=0.5)
[2024-11-10 16:21] LABS: Hemoglobin A1C 4.9 % (<5.7)
[2024-11-10 16:47] LABS: Ferritin 180 ng/mL (8-252)
== END 2024-11-10 13:41 | disposition home or self-care (01) ==
LOC: NCHCN 13:40
PROVIDERS: PCP Family Medicine; Visit Provider Family Medicine
DX: E11.9 Type 2 diabetes mellitus without complications (principal); M62.81 Muscle weakness (generalized)
CPT/HCPCS: 82550; 85027; 85652; 82728; 83036; 86140

== ENCOUNTER 2024-11-28 01:16 | Outpatient (CLI) | payer MEDICARE, MEDICAID, SELFPAY ==
--- NOTE | 2024-11-28 | DI.RAD_ITS ---
Exam(s) XR CHEST 2V PA LATERAL EXAM: XR CHEST 2V PA LATERAL CLINICAL HISTORY: TORRES R06.09 TECHNIQUE: 2D digital imaging was performed of the chest. Three images were obtained. PA and lateral views were obtained. COMPARISON: CR XR CHEST 2V PA LATERAL from 04/05/2023 CR,XR XR PORTABLE CHEST AP from 03/11/2024 FINDINGS: MEDIASTINUM: Normal. HEART: Normal. PULMONARY VASCULATURE: Normal. LUNGS: Clear. PLEURAL SPACE: No pleural effusion or pneumothorax. BONE:Within normal limits for the patient's age. OTHER FINDINGS:Surgical clips are again seen in the upper abdomen. IMPRESSION: No acute pulmonary findings. DATA REPOSITORY: RADIATION DOSE DELIVERED:
--- NOTE | 2024-11-28 | DI.US_ITS ---
APPROVED REPORT EXAM: Comprehensive 2D, Doppler, and color-flow Echocardiogram Patient Location: Out-Patient Cross Tie Tram Loader: Angelina Schwartz RDCS (AE) Indications: TORRES Other Information Study Quality: Adequate Conclusion Normal left ventricular wall thickness and chamber size. Ejection fraction is 55 to 60%. Wall motion is normal Normal right ventricular size and function Both atria are normal in size There is no structural or hemodynamically significant valvular disease Wall motion Left Ventricle The left ventricle is normal size. The left ventricular systolic function is normal. The left ventricular ejection fraction is within the normal range. There is normal left ventricular wall thickness. There is normal LV segmental wall motion. There is no ventricular septal defect visualized. LVEF is 58%. Right Ventricle The right ventricle is normal size. The right ventricular systolic function is normal. Atria The left atrium size is normal. The right atrium size is normal. The interatrial septum is intact with no evidence for an atrial septal defect. Aortic Valve The aortic valve is normal in structure. Aortic valve is trileaflet. There is no aortic valvular stenosis. No aortic regurgitation is present. Mitral Valve The mitral valve is normal in structure. No evidence of mitral valve stenosis. Trace mitral regurgitation. Tricuspid Valve The tricuspid valve is normal in structure. There is no tricuspid valve stenosis. Trace tricuspid regurgitation. Unable to assess PA pressure. Pulmonic Valve The pulmonary valve is normal in structure. There is no pulmonic valvular stenosis. Trace pulmonic regurgitation. Great Vessels The aortic root is normal in size. The ascending aorta is normal in size. IVC is normal in size and collapses >50% with inspiration. Pericardium There is no pericardial effusion. Limited subcostal imaging. Unable to compress. 2D Dimensions IVSD d PLAX 1.00 cm F: 0.6-1.0 Ao Root d 2.40 cm F: 2.7 - 3.3 LVPW d PLAX 1.01 cm F: 0.6 - 1.0 Ao Asc Diam d 2.78 cm F: 2.3 - 3.1 LVID d PLAX 4.10 cm F: 3.8 - 5.2 LVDs 2.80 cm F: 2.2 - 3.5 LV EF Teichholz 59.5 % FS 31.19 % LV EDV (Teich) 72.7 mL LV ESV (Teich) 29.5 mL M-Mode TAPSE 1.34 cm (M/F) >1.7 Auto EF LV EDV A4C 81.6 mL LV EDV A2C 80.7 mL LV EDV BP 81.3 mL LV ESV A4C 34.5 mL LV ESV A2C 33.7 mL LV ESV BP 33.8 mL LVEF(%) A4C 57.7 % LVEF(%) A2C 58.3 % LVEF(%) BP 58.4 % LV SV A4C 47.1 ml LV SV A2C 47.0 ml LV SV BP 47.5 ml LV CO A4C 2.6 L/min LV CO A2C 3.1 L/min LV CO BP 2.9 L/min HR A4C 55.47 BPM HR A2C 66.03 BPM LV EDV Index (BP) LA Volume LA Length A4C 4.6 cm LA Length A2C 4.6 cm LA Area A4C s 14.87 cm2 LA Area A2C s 12.70 cm2 LA Vol A4C A-L 40.85 mL LA Vol A2C A-L 29.82 mL LA Vol Biplane A-L 34.9 mL LA Vol/BSA A4C A-L LA Vol/BSA A2C A-L LA Vol/BSA BP A-L 18.4 mL/m2 LA Vol A4C MOD 38.8 mL LA Vol A2C MOD 28.2 mL LA Vol BP MOD 33.0 mL LV Diastology MV E' medial 0.072 (>0.07 m/s) MV E Vmax 0.50 (0.4-1.3 m/s) MV E/E' MED 6.89 (<14) MV A Vmax 0.65 (0.4-1.3 m/s) MV E' lateral 0.061 (>0.1 m/s) E/A Ratio 0.8 MV E/E' LAT 8.10 (<14) MV E' Average 0.067 m/s MV E/E'(average) 7.45 Aortic Valve AoV Vmax 1.31 m/s LVOT Vmax 0.99 m/s AoV Peak Grad 6.9 mmHg LVOT Peak Grad 3.9 mmHg AoV Area (Vmax) 2.11 cm2 LVOT VTI 0.180 m AoV VTI 0.279 m LVOT Mean Grad 2.0 mmHg AoV Mean Jimbo. 0.91 m/s LVOT SV 50.39 mL AoV Mean Grad 3.8 mmHg LVOT Diam s 1.85 cm AoV Area (VTI) 1.80 cm2 AV Regurg Peak Gr. 6.87 mmHg Velocity Ratio 0.76 Mitral Valve MV DT 240 (160-240 msec) MV Vmax TIPS 0.80 m/s MV Mean Grad 0.7 (<2mmHg) MV VTI 0.219 m Pulmonary Valve PV Vmax 0.81 (0.5-1.5 m/s) RVOT Vmax 0.66 m/s PV Peak Grad 2.6 mmHg RVOT Peak Gr. 1.7 mmHg PV Mean Jimbo 0.58 m/s RVOT VTI 0.148 m PV Mean Grad 1.5 mmHg RVOT Mean Gr. 1.0 mmHg Tricuspid Valve TV S' 0.10 m/s
== END 2024-11-28 01:36 ==
LOC: DI 01:16
PROVIDERS: PCP Family Medicine; Visit Provider Internal Medicine Cardiovascular Disease
DX: R06.09 Other forms of dyspnea (principal)
CPT/HCPCS: 93306; 71046

== ENCOUNTER 2024-12-06 15:47 | Outpatient (REF) | payer MEDICARE, MEDICAID, SELFPAY ==
--- NOTE | 2024-12-06 11:30 | PAPFT_PTH ---
PATIENT: Janice Briones LOC: [facility]#:[id number] AGE/SX: 59/F ROOM: RE12/06/[address]: Deandra Hutchins : 1965 BED: DIS: 12/06/2024 SPEC #: [id number] RECD: 12/06/24 18:38 STATUS: WILFRID REAugusto #: [id number] MARIANO: 12/06/24 11:[address]: Deandra Hutchins DEPT: [facility] Cytology RECD BY: Florence Beckwith Tissues: 1 - CX/ENDOCX FOR PAP SMEARS Procedures: PAP THIN PREP/UVM Screening HPV DNA PROBE Comments: [id number] (HPV 16 & 18/45)
== END 2024-12-06 15:48 | disposition home or self-care (01) ==
LOC: NCHCN 15:47
PROVIDERS: PCP Family Medicine; Visit Provider Family Medicine
DX: Z12.4 Encounter for screening for malignant neoplasm of cervix (principal)
CPT/HCPCS: 88142; 87624

== ENCOUNTER 2024-12-11 08:01 | Outpatient (CLI) | payer MEDICARE, MEDICAID, SELFPAY | END 2024-12-11 08:02 | disposition home or self-care (01) | PROVIDERS: PCP Family Medicine; Visit Provider Family Medicine | DX: R06.09 Other forms of dyspnea (principal) | CPT/HCPCS: 93246 ==

== ENCOUNTER 2024-12-29 07:28 | Outpatient (CLI) | payer MEDICARE, MEDICAID, SELFPAY ==
--- NOTE | 2024-12-29 12:41 | W.CARDEVENT ---
Date of service: 12/29/24 Time of Service: 12:41 Cardiac Event Recorder Referring Provider:: Deandra Hutchins Indications:: Dizziness Cardiac Event Note: This is a cardiac event monitor. Patient was monitored for 13 days and 17 hours Predominant rhythm was sinus with an average heart rate of 72. Minimum was 52, maximum 142 There were very rare isolated ventricular ectopic beats. There were rare atrial premature beats. Several self-limited atrial runs occurred. Majority of these were less than 5 beats in duration There was no atrial fibrillation, no high-grade AV block, no pauses greater than 3 seconds No symptoms were reported
== END 2024-12-29 07:29 | disposition home or self-care (01) ==
LOC: CARDOPNVT 07:28
PROVIDERS: PCP Family Medicine; Visit Provider Internal Medicine Cardiovascular Disease
DX: R42 Dizziness and giddiness (principal); I49.1 Atrial premature depolarization
CPT/HCPCS: 93248

== ENCOUNTER 2025-01-29 13:53 | Emergency (ER) | payer MEDICARE, MEDICAID, SELFPAY ==
[2025-01-29] VITALS (114 sets, daily range): BP systolic 118–158; BP diastolic 57–110; PULSE 72–102; RESP 12–58; TEMP 36.2–36.3; O2SAT 94–99
--- NOTE | 2025-01-29 14:15 | RT.EKG_ITS ---
APPROVED REPORT Exam: Resting ECG Reason for Exam: Abdominal pain Patient Location: E HR:94 bpm ECG Measurements Heart Rate [address] 159 P 60 QRSd 83 QRS -41 QT 319 T [id number] QTc 400 Conclusion Sinus rhythm...normal P axis, V-rate 60- 99 Left axis deviation...QRS axis (-30,-90) Nonspecific T abnrm, anterolateral leads...T <-0.10mV, I aVL V2-V6 No Occlusion OR
[2025-01-29 14:17] LABS: Abs Immature Grans 0.05 10^3/uL (0.0-0.06); HCT 39.3 % (36.0-46.0); HGB 13.3 g/dL (11.2-15.7); Immature Grans % 0.7 %; MCH 30.2 pg (27.0-33.0); MCHC 33.8 % (32.0-36.0); MCV 89 fL (80-95); MPV 9.9 fL (8.0-11.0); Platelet Count 165 10^3/uL (130-400); RBC 4.40 10^6/uL (3.93-5.22); RDW 11.9 % (11.7-14.6); RDW-SD 38.5 fL; WBC 7.61 10^3/uL (4.4-10.8)
[2025-01-29 14:33] LABS: Lipase 23 U/L (<53); Magnesium 1.7 mg/dL (1.6-2.6)
[2025-01-29 14:35] LABS: ALT 99 U/L (10-49); AST 61 U/L (<34); Albumin 4.4 g/dL (3.2-5.0); Alkaline Phosphatase 213 U/L (46-116); Anion Gap 10.3 mmol/L (3-11); BUN 22 mg/dL (9-23); Bilirubin, Total 0.90 mg/dL (0.2-1.2); CO2 23.7 mmol/L (20.0-31.0); Calcium 8.9 mg/dL (8.3-10.6); Chloride 110 mmol/L (98-107); Glucose 161 mg/dL (74-106); Potassium 4.6 mmol/L (3.5-5.1); Sodium 144 mmol/L (136-145); Total Protein 7.0 g/dL (5.7-8.2)
[2025-01-29] MEDS: Ondansetron 4 MG/2 ML VIAL IVP (15:06)
[2025-01-29 15:08] LABS: INR 1.0 (0.9-1.1); PTT Activated 23.1 sec (20.6-30.2); Prothrombin Time 9.9 sec (9.1-11.1)
--- NOTE | 2025-01-29 15:16 | W.ED.GENAD ---
Discharge Plan Discharge Details Chief Complaint: Abd Prob Primary Care Provider: Deandra Hutchins ED Provider: Theresa Mistry Home Meds and New Rx's Prescriptions: No Action ergocalciferol (vitamin D2) 1,250 mcg (50,000 unit) capsule 1,250 mcg PO QWEEK Patient Comments: MONDAYS Glucerna Snack Shake Liquid PO mycophenolate mofetil 250 mg capsule 500 mg PO BID acetaminophen 500 mg tablet 500 mg PO Q6H PRN sodium bicarbonate 650 mg tablet 650 mg PO BID vitamin A acetate 3,000 mcg (10,000 unit) tablet, sublingual 3,000 mcg PO DAILY levalbuterol tartrate [Xopenex HFA] 45 mcg/actuation HFA aerosol inhaler 2 inh inhalation .Q4-6HR diclofenac sodium 1 % Gel 2 g topical QID PRN PRNQty: 100 0RF Rx Instructions: apply to Left knee folic acid 1 mg Tablet 1 mg PO DAILY Qty: 30 0RF magnesium chloride [Mag 64] 64 mg Tablet,Delayed Release (Dr/Ec) 128 mg PO BID Qty: 120 0RF (DME) Dexcom G7 Sensor Device See Rx Instructions .Route Qty: 3 0RF Rx Instructions: For blood sugar monitoring in am, before meals, and at bedtime (DME) pen needle, diabetic [Sure-Fine Pen [place]] 31 gauge x 5/16 needle See Rx Instructions .Route Qty: 200 1RF Rx Instructions: For lantus injections BID and aspart AC/HS (DME) Dexcom G7 Project Account Manager Misc See Rx Instructions .Route Qty: 1 0RF Rx Instructions: For blood sugar monitoring AC/HS (DME) lancets 30 gauge misc See Rx Instructions .Route Qty: 200 0RF Rx Instructions: As directed (DME) 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 meter Kit See Rx Instructions .Route Qty: 1 0RF Rx Instructions: glucometer for blood sugar checks AC/HS (DME) Blood Glucose Test Strip See Rx Instructions .Route Qty: 200 0RF Rx Instructions: For blood sugar checks AC&HS insulin aspart U-100 [Novolog FlexPen U-100 Insulin] 100 unit/mL (3 mL) insulin pen 1 sliding scale dose subcut USEASDIRECTD MDD 100 units Qty: 15 0RF Rx Instructions: Take AC and HS. Mealtime: take 2 units per 10 grams of carbs consumed, up to 20 units per meal. In addition, take 2 units for every 50 points that blood sugar is over 150, up to 10 units AC/HS. pantoprazole 40 mg tablet,delayed release (DR/EC) 40 mg PO DAILY metformin 500 mg tablet extended release 24 hr 500 mg PO DAILY Patient Comments: TAKE 1 TABLET BY MOUTH EVERY MORNING WITH FOOD tacrolimus 0.5 mg capsule 1 mg PO Q12H Patient Comments: TAKE 2 CAPSULES BY MOUTH EVERY MORNING AND 2 EVERY EVENING insulin glargine [Lantus Solostar U-100 Insulin] 100 unit/mL (3 mL) insulin pen 15 unit SUBCUT HS midodrine 2.5 mg Tablet 5 mg PO TID 90 Days Qty: 540 2RF HPI General Date/Time Provider Initiated Documentation: 01/29/25 14:00. Limitations to Documentation: no limitations. Information obtained by: patient, RN notes reviewed and old records reviewed. History of Present Illness 59 year old F presents to the emergency department with the chief complaint of nausea, vomiting, lower abdominal discomfort, described as moderate, and is localized to the abdomen. Patient reports no radiation. Patient started experiencing this day(s) (last night) and it has been constant. No relieving factors improve symptom(s), Medication worsens symptoms (states symptoms worsened after she took her medications this morning) . 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 #1 ea 09/09/22 01/29/25 (Dexcom G7 Project Account Manager) diclofenac sodium 1 % topical gel 2 g topical QID PRN PRN #100 grams 09/09/22 01/29/25 folic acid 1 mg tablet 1 mg PO DAILY #30 tabs 09/09/22 01/29/25 insulin aspart U-100 100 unit/mL 1 sliding scale dose subcut 09/09/22 01/29/25 (3 mL) subcutaneous pen (Novolog USEASDIRECTD #15 mL FlexPen U-100 Insulin aspart) lancets 30 gauge #200 ea 09/09/22 01/29/25 magnesium chloride 64 mg 128 mg (2 x 64 mg) PO BID #120 tabs 09/09/22 01/29/25 (magnesium chloride) tablet,delayed release (Mag 64) pen needle, diabetic 31 gauge x #200 ea 09/09/22 01/29/25 5/16 (Sure-Fine Pen [place]) acetaminophen 500 mg tablet 500 mg PO Q6H PRN 11/22/23 01/29/25 ergocalciferol (vitamin D2) 1,250 1,250 mcg PO QWEEK 11/22/23 01/29/25 mcg (50,000 unit) capsule mycophenolate mofetil 250 mg 500 mg PO BID 11/22/23 01/29/25 capsule nut.tx.gluc.intol,lac-free,soy ml PO 11/22/23 02/09/24 (Glucerna Snack Shake oral liquid) sodium bicarbonate 650 mg tablet 650 mg PO BID 11/22/23 01/29/25 vitamin A acetate 3,000 mcg 3,000 mcg PO DAILY 11/22/23 01/29/25 (10,000 unit) sublingual tablet pantoprazole 40 mg tablet,delayed 40 mg PO DAILY 03/11/24 01/29/25 release insulin glargine 100 unit/mL (3 15 unit subcut HS 03/12/24 01/29/25 mL) subcutaneous pen (Lantus Solostar U-100 Insulin) metformin 500 mg tablet,extended 500 mg PO DAILY 03/12/24 01/29/25 release 24 hr tacrolimus 0.5 mg capsule, 1 mg PO Q12H 03/12/24 01/29/25 immediate-release midodrine 2.5 mg tablet 5 mg (2 x 2.5 mg) PO TID 90 days 03/13/24 01/29/25 #540 tabs Previous Rx's ?Medication ?Instructions ?Recorded blood sugar diagnostic (Blood #200 ea 09/09/22 Glucose Test strips) 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 meter #1 ea 09/09/22 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 sensor ([employer] G7 #3 ea 09/09/22 Sensor device) 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,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,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 #1 ea 09/09/22 (Dexcom G7 Project Account Manager) diclofenac sodium 1 % topical gel 2 g topical QID PRN PRN #100 grams 09/09/22 folic acid 1 mg tablet 1 mg PO DAILY #30 tabs 09/09/22 insulin aspart U-100 100 unit/mL 1 sliding scale dose subcut 09/09/22 (3 mL) subcutaneous pen (Novolog USEASDIRECTD #15 mL FlexPen U-100 Insulin aspart) lancets 30 gauge #200 ea 09/09/22 magnesium chloride 64 mg 128 mg (2 x 64 mg) PO BID #120 tabs 09/09/22 (magnesium chloride) tablet,delayed release (Mag 64) pen needle, diabetic 31 gauge x #200 ea 09/09/22 5/16 (Sure-Fine Pen [place]) midodrine 2.5 mg tablet 5 mg (2 x 2.5 mg) PO TID 90 days 03/13/24 #540 tabs Allergies Allergy/AdvReac Type Severity Reaction Status Date / Time codeine AdvReac Unknown unable to Verified 01/29/25 14:02 take related to colon removal ibuprofen AdvReac Unknown unable to Verified 01/29/25 14:02 take related to colon removal General Stated Complaint: Abd Prob WILL: 3 Review of Systems Constitutional Constitutional: Reports as per HPI, Denies chills, Denies fever(s) and Denies headache(s) ENT Ears, Nose, Mouth, and Throat: Denies headache(s) Cardiovascular Cardiovascular: Reports as per HPI, Denies chest pain and Denies dyspnea Respiratory Respiratory: Reports as per HPI, Denies cough and Denies dyspnea Gastrointestinal Gastrointestinal: Reports as per HPI Genitourinary Genitourinary: Reports as per HPI Musculoskeletal Musculoskeletal: Reports as per HPI and Denies back pain Integumentary/Breasts Skin/Breast: Reports as per HPI and Denies rash Neurologic Neurologic: Reports as per HPI and Denies headache(s) Exam Const General: cooperative, comfortable, no acute distress, well developed and ill appearing chronically Nutritional Appearance: well nourished and overweight Orientation: alert and awake HENMT Head: normal to inspection Mouth: moist mucous membranes Resp Effort & Inspection: normal respiratory effort, able to speak in complete sentences and no respiratory distress Auscultation: clear to auscultation bilaterally, no rales, no rhonchi and no wheezes Cardio Rate: regular rate Rhythm: regular rhythm Heart Sounds: S1 normal and S2 normal GI Inspection: normal to inspection, no edema, non-distended, scar (Well-healed postsurgical incisions) and other (Ostomy) Palpation: soft, not firm, no guarding, no masses, no pulsatile masses and not rigid Back/Spine/Pelvis Back: no CVA tenderness Skin General skin exam: no rashes or lesions noted Trauma: no lacerations or abrasions Neuro General: patient alert and patient awake Cognition: normal cognition Speech: speech normal Course Vital Signs Vital signs: Vital Signs Temperature 36.2 C L 01/29/25 13:56 Pulse 101 H 01/29/25 13:56 Respiratory Rate 20 01/29/25 13:56 Blood Pressure 146/110 H 01/29/25 13:56 Pulse Oximetry 97 01/29/25 13:56 Temperature 36.2 C L 01/29/25 13:56 Temperature Source Oral 01/29/25 13:56 Pulse 101 H 01/29/25 13:56 Respiratory Rate 20 01/29/25 13:56 Blood Pressure 146/110 H 01/29/25 13:56 Pulse Oximetry 97 01/29/25 13:56 Oxygen Delivery Method Room Air 01/29/25 13:56 Oxygen Flow Rate 0 01/29/25 13:56 Pain Level 9 01/29/25 13:56 Lab/Test Results Lab/Test Results: Laboratory Tests Range/Units 01/29/25 14:10 WBC (4.4-10.8) 10^3/uL 7.61 RBC (3.93-5.22) 10^6/uL 4.40 Hgb (11.2-15.7) g/dL 13.3 Hct (36.0-46.0) % 39.3 MCV (80-95) fL 89 MCH (27.0-33.0) pg 30.2 MCHC (32.0-36.0) % 33.8 RDW (11.7-14.6) % 11.9 Plt Count (130-400) 10^3/uL 165 MPV (8.0-11.0) fL 9.9 Immature Gran % % 0.7 Neutrophils % % 83.6 Lymphocytes % % 9.7 Monocytes % % 5.4 Eosinophils % % 0.3 Basophils % % 0.3 Nucleated RBC % (0.0-0.3) % 0.0 Absolute Neutrophils (1.2-6.7) 10^3/uL 6.37 Absolute Lymphocytes (1.2-3.4) 10^3/uL 0.74 L Absolute Monocytes (0.1-0.8) 10^3/uL 0.41 Absolute Eosinophils (0.0-0.7) 10^3/uL 0.02 Absolute Basophils (0.0-0.2) 10^3/uL 0.02 PT (9.1-11.1) sec 9.9 INR (0.9-1.1) 1.0 APTT (20.6-30.2) sec 23.1 Sodium (136-145) mmol/L 144 Potassium (3.5-5.1) mmol/L 4.6 Chloride (98-107) mmol/L 110 H Carbon Dioxide (20.0-31.0) mmol/L 23.7 Anion Gap (3-11) mmol/L 10.3 BUN (9-23) mg/dL 22 Creatinine (0.55-1.02) mg/dL 1.40 H Est GFR (CKD-EPI 2020) (mL/min/1.73m2) 38.46 Glucose (74-106) mg/dL 161 H Calcium (8.3-10.6) mg/dL 8.9 Magnesium (1.6-2.6) mg/dL 1.7 Total Bilirubin (0.2-1.2) mg/dL 0.90 AST (<34) U/L 61 H ALT (10-49) U/L 99 H Alkaline Phosphatase (46-116) U/L 213 H Total Protein (5.7-8.2) g/dL 7.0 Albumin (3.2-5.0) g/dL 4.4 Lipase (<53) U/L 23 Medical Decision Making Patient is a pleasant 59-year-old female past medical history of CKD, Cirrhosis, adjustment disorder, HADLEY, GERD, depression, type 2 diabetes, PTSD, colon cancer, status post liver transplant and colectomy with ostomy placement, presented with chief complaint of nausea, vomiting and UTI symptoms. She reports that the UTI symptoms began yesterday with some low central abdominal discomfort as well as burning with urination. She is not sexually active. She denies any vaginal discharge. She denies any pain going up into her back, no CVA tenderness. She denies any change in her ostomy output. She reports she has been able to take all of her medications today, in particular she has taken antirejection medications and was able to keep these down. States has had some nausea and vomiting but does not seem like she has had large quantities of emesis. Denies any fevers or chills. Reports generally low appetite today with normal appetite yesterday. Has transitioned her care to [facility] after intitial transplant was completed in [place]. On exam, patient appears chronically unwell but not acutely toxic. Lungs are clear, normal cardiac exam. She is appropriate does not demonstrate any confusion. She hemodynamically stable. Abdomen is fairly benign. She has well-healed midline incision. Hypoactive bowel sounds. Ostomy has minimal output. She is slightly tender low central over the bladder but otherwise nontender with palpation. No pain in the right upper quadrant or epigastric region. No CVA tenderness. Primary concern with the dysuria and bladder tenderness is for UTI. However, with her history of liver transplant, certainly increases my concern for easy infection as she is so immunocompromised. Will obtain baseline labs as well as lactate, ammonia, coags. Will consult with her team at [facility] regarding treatment plan, give IV hydration. Patient is requesting something for discomfort, will give morphine. Labs reviewed. No leukocytosis. Stable H&H. Coags are within normal limits. Lactate within normal limits. Her LFTs are elevated with an AST 61, ALT 99, alk phos 213, T. bili is WNL, lipase WNL comparatively, patient's LFTs have come up and down even status post transplant. Will discuss this further with her GI team at [facility].. Dr. Cai with GI. She advised that this is not too far off from recent visit. She advised that she has had fatty liver recurring with andrea elevated LFTs. Recommends CT abdominal imaging. Start empiric antibiotics. As andrea patient had moderate upper quadrant pain with palpation, he has otherwise been feeling well aside from very frequent UTI symptoms, for that targeting the antibiotics against likely urinary pathogen is appropriate at this point. We can update once we have further information back. Med list updated. Did discuss the antibiotic choice with the pharmacist and we will begin the patient on pip-tazo as at appropriate renal dosing. At the end of my shift, care transitioned to oncoming clinician with a UA and CT pending. Based on conversation with [facility], they are not expecting a callback unless there is an abnormality on the CT scan regarding the transplanted liver. More likely, UTI causing more significant infection in the setting of being so immunocompromised. Dictation completed using [employer] dictation software. 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 (Acute) Pain in joint, foot, left (Acute) Presence of transplanted liver (Acute) Thrombosis of right cephalic vein (Acute) Folate deficiency (Acute) Sepsis (Acute) IDDM (insulin dependent diabetes mellitus) (Chronic) Obesity (BMI 30.0-34.9) (Chronic) Heme + stool (Acute) Hypoglycemia (Acute) Hypokalemia (Acute) Hypomagnesemia (Acute) Pleuritic chest pain (Acute) Staphylococcus aureus bacteremia (Acute) Hypotension (Acute) Thrombocytopenia (Chronic) Leukocytosis (Acute) Coagulopathy (Acute) Hypoproteinemia (Acute) Hypocalcemia (Acute) Gram-positive cocci bacteremia (Acute 08/23/22) Septic arthritis of knee, left (Acute ~08/09/22) S/P washout/debridement: 08/24/2022 Hyperbilirubinemia (Acute) Acute dehydration (Acute) ADHD (Acute) Crohn's disease in remission (Acute) Anemia of chronic disease (Acute) Acute exacerbation of chronic low back pain (Acute) Back pain (Acute) Stoma bleed (Acute) Chest pain (Acute) H/O malignant neoplasm of colon (Acute) Anemia, blood loss (Acute) GI bleed (Chronic) Medical History Cirrhosis of liver Hepatorenal syndrome Hyposmia Adjustment disorder Chronic low back pain Vitamin B12 deficiency Vitamin D deficiency HADLEY (obstructive sleep apnea) GERD (gastroesophageal reflux disease) Depression with anxiety Diabetes mellitus type 2 in obese PTSD (post-traumatic stress disorder) Colon cancer Surgical History Hx of liver transplant S/P D&C (status post dilation and curettage) S/P LEEP H/O ileostomy History of endometrial ablation S/P colectomy Family History Mother , age 49 due to heart disease Diabetes Heart disease Hypertension Father Heart disease Social History Smoking/Tobacco Use Status: Never Smoking risk assessment performed?: Yes Alcohol Intake: never Drug use: Never Substance use type: does not use Household members: family Housing: house Number of Children: 5 number of grandchildren: 15 Pets and animals: Yes Pets and animals: dog(s) What type of physical activity do you participate in: none Seatbelt use: always Do you feel safe at home: Yes Do you feel safe in your relationship?: Yes
[2025-01-29 15:38] LABS: Ammonia < 10 umol/L (11-32)
--- NOTE | 2025-01-29 16:15 | DI.CT_ITS ---
Exam(s) CT ABDOMEN PELVIS W EXAM: CT ABDOMEN PELVIS W CLINICAL HISTORY: incr. LFT, hx liver transplant, central low pain. TECHNIQUE: Imaging Protocol: Axial computed tomography images with coronal and sagittal reformatted images were created and reviewed CONTRAST MATERIAL: Intravenous: Omnipaque-350 75cc Oral: None COMPARISON: CT CT CHEST/ABD/PEL W from 12/31/[address] CHEST PE CTA from 03/14/2023 FINDINGS: VISUALIZED LUNG BASES: No nodules nor pleural effusions evident. ABDOMEN: LIVER: There has been interval liver transplant. There is no ascites. The transplant liver is diffusely hypodense implying steatosis but there are no discrete focal hepatic lesions identified. There is no thrombosis of the systemic veins in the liver nor of the intrahepatic IVC nor subhepatic IVC. In trahepatic portal veins are also patent. There is no periportal edema.. GALLBLADDER/BILIARY: Gallbladder surgically absent. CBD is not dilated. PANCREAS: No evidence of pancreatic mass nor dilatation of the pancreatic duct. SPLEEN: Splenomegaly again noted. Some calcification in the splenic capsule is again noted. There are no intrasplenic lesions. The splenic and portal veins are patent. The diameter of the nonthrombosed splenic vein is 1 cm. ADRENALS: There are no significant adrenal masses. KIDNEYS:Left kidney unremarkable. There is right-sided hydronephrosis and hydroureter. Ureter is dilated to 9 mm. There is an obstructing calculus in the mid pelvic right ureter which measures approximately 4 mm.. The right ureter below this level is collapsed. There are no calculi within the lumen of the nondistended urinary bladder. No no calculi nor hydronephrosis on the opposite-left side. ABDOMINAL AORTA: Abdominal aorta is not enlarged. LYMPH NODES:There is no retroperitoneal nor paraaortic adenopathy. ABDOMINAL WALL: Again noted is an anterior abdominal wall right of center infraumbilical ostomy site. GI: There is no evidence of bowel obstruction, free air, nor abscess. PELVIS: GI: No evidence of appendicitis.No evidence of sigmoid diverticulitis. LYMPH NODES: There is no intrapelvic nor inguinal adenopathy. REPRODUCTIVE: Uterus and adnexal regions age-appropriate. URINARY BLADDER: No calculi nor obvious masses evident OSSEOUS: No fractures and no significant osseous lesions. IMPRESSION: 1. Main acute finding is an obstructing 4 millimeter calculus in the lower 3rd of the right ureter with mild hydronephrosis above this level.. 2. There has been interval liver transplant when compared to prior CT scan of 12/31/2022. The transplant liver is hypodense implying steatosis. 3. Other findings as above. Report called by myself to ER 01/29/2025 at 5:47 p.m. RADIATION DOSE DELIVERED: 531.77mGy.cm Total DLP DATA REPOSITORY: All CT scans at this facility are submitted to the National Radiology Data Registry (NRDR) Dose Index Registry (DIR) with the [employer] (A[employer]). RADIATION OPTIMIZATION: All CT scans at this facility use at least one of these dose optimization techniques: automated exposure control; mA and/or kV adjustment per patient size (includes targeted exams where dose is matched to clinical indication); or iterative reconstruction.
[2025-01-29] MEDS: Normal Saline Flush 10 ML SYR IVP ×2 (16:16→17:17)
[2025-01-29] MEDS: Lactated Ringers 1,000 ML 1000 ML IV (16:16)
[2025-01-29] MEDS: MORPHine 10 MG/ML VIAL 4 MG IVP (16:21)
[2025-01-29] MEDS: Normal Saline - Diluent 50 ML VIAL IJ (17:17)
[2025-01-29] MEDS: Omnipaque 350 MG/ML 100 ML BTL IJ (17:17)
[2025-01-29] MEDS: PIPERACILLIN/TAZO 3.375 GM in Normal Saline 50 ML IVPB (17:51)
[2025-01-29] MEDS: cefTRIAXone 2 GM/50 ML BAG IVPB (18:37)
[2025-01-29 19:11] LABS: Glucose Negative (Negative)
[2025-01-29 19:18] LABS: RBC >50 HPF (0-2)
[2025-01-29 19:19] LABS: C & S Indicated? No
[2025-01-29] MEDS: Tamsulosin 0.4 MG CAPCR PO (19:37)
[2025-01-29] MEDS: MORPHine 10 MG/ML VIAL 2 MG IVP (19:37)
--- NOTE | 2025-01-29 21:30 | ED.PROG_ITS ---
Date of service: 01/29/25 Time of Service: 21:30 Medical Decision Making This dictation utilizes [id number] dictation software and may contain unedited grammatical errors. 59-year-old female with history of liver transplant 1.5 years ago managed by [facility] was consulted on by prior provider they recommended CT scan, she presented there initially for renal colic and UTI symptoms but has not provided urine sample yet. Patients' medical history: Immune compromised with liver transplant, T2DM, CKD, history of DVT, history of electrolyte derangements. Differential / pathologies of concern include renal stone, UTI, pyelonephritis. Diagnostic studies of: - Reviewed prior labs, pending studies or CT ABD/pelvis with contrast, UA. - CT shows an obstructing kidney stone in the mid right ureter with hydronephrosis - UA shows nitrate positive with 5-10 WBCs Interventions of: - Changed her antibiotic selection from pip-tazo to ceftriaxone with urinary source, provided 0.4 mg p.o. Flomax and IV fluids. ED Course/Assessment/Plan: 59-year-old female presents with renal colic symptoms, awaiting CT at shift change, CT and urine show that she has an obstructed infected kidney stone warranting stenting, she has tachycardia of 102 on arrival with a respiratory rate of 20 but is afebrile at this time. Urology is not on-call here I did page them but they did not return call. I did speak with Dr. Ron at [facility] [place] who recommended ED to ED transfer but likely being admitted to medicine service with her complicated medical history but that she may need a stent. [facility] checked with on-call medical clerical assistant and refused transfer, I did ask that they reconnect with on-call medical clerical assistant and stress that this is a transplant patient that is managed by [facility] and has obstructed infected kidney stone. [facility] did return call and accepted ED to ED transfer @ 2136 - accepting physician Dr. Finn. Disposition of Right Ureteral Stone, Obstructive Uropathy, Urinary Tract Infection. Patient verbalized understanding of the plan and return to ED criteria and engaged in shared decision making. Medical Records Medical records reviewed: Yes I reviewed the patient's medical records. Imaging Data Radiologic Study: Attestation: I personally reviewed and interpreted this imaging study as follows: Imaging: CT Scan Radiologist's impression: EXAM: CT ABDOMEN PELVIS W CLINICAL HISTORY: incr. LFT, hx liver transplant, central low pain. TECHNIQUE: Imaging Protocol: Axial computed tomography images with coronal and sagittal reformatted images were created and reviewed CONTRAST MATERIAL: Intravenous: Omnipaque-350 75cc Oral: None COMPARISON: CT CT CHEST/ABD/PEL W from 12/31/[address] CHEST PE CTA from 03/14/2023 FINDINGS: VISUALIZED LUNG BASES: No nodules nor pleural effusions evident. ABDOMEN: LIVER: There has been interval liver transplant. There is no ascites. The transplant liver is diffusely hypodense implying steatosis but there are no discrete focal hepatic lesions identified. There is no thrombosis of the systemic veins in the liver nor of the intrahepatic IVC nor subhepatic IVC. Intrahepatic portal veins are also patent. There is no periportal edema.. GALLBLADDER/BILIARY: Gallbladder surgically absent. CBD is not dilated. PANCREAS: No evidence of pancreatic mass nor dilatation of the pancreatic duct. SPLEEN: Splenomegaly again noted. Some calcification in the splenic capsule is again noted. There are no intrasplenic lesions. The splenic and portal veins are patent. The diameter of the nonthrombosed splenic vein is 1 cm. ADRENALS: There are no significant adrenal masses. KIDNEYS:Left kidney unremarkable. There is right-sided hydronephrosis and hydroureter. Ureter is dilated to 9 mm. There is an obstructing calculus in the mid pelvic right ureter which measures approximately 4 mm.. The right uret er below this level is collapsed. There are no calculi within the lumen of the nondistended urinary bladder. No no calculi nor hydronephrosis on the opposite- left side. ABDOMINAL AORTA: Abdominal aorta is not enlarged. LYMPH NODES:There is no retroperitoneal nor paraaortic adenopathy. ABDOMINAL WALL: Again noted is an anterior abdominal wall right of center infraumbilical ostomy site. GI: There is no evidence of bowel obstruction, free air, nor abscess. PELVIS: GI: No evidence of appendicitis.No evidence of sigmoid diverticulitis. LYMPH NODES: There is no intrapelvic nor inguinal adenopathy. REPRODUCTIVE: Uterus and adnexal regions age-appropriate. URINARY BLADDER: No calculi nor obvious masses evident OSSEOUS: No fractures and no significant osseous lesions. IMPRESSION: 1. Main acute finding is an obstructing 4 millimeter calculus in the lower 3rd of the right ureter with mild hydronephrosis above this level.. 2. There has been interval liver transplant when compared to prior CT scan of 12/31/2022. The transplant liver is hypodense implying steatosis. 3. Other findings as above. Report called by myself to ER 01/29/2025 at 5:47 p.m. Lab Data Lab results reviewed: Yes I reviewed the patient's lab results. Labs: 01/29/25 16:45 Blood Blood Culture - Pending 01/29/25 16:53 Blood Blood Culture - Pending Laboratory Tests Range/Units 01/29/25 01/29/25 01/29/25 14:10 15:05 19:05 WBC (4.4-10.8) 10^3/uL 7.61 RBC (3.93-5.22) 10^6/uL 4.40 Hgb (11.2-15.7) g/dL 13.3 Hct (36.0-46.0) % 39.3 MCV (80-95) fL 89 MCH (27.0-33.0) pg 30.2 MCHC (32.0-36.0) % 33.8 RDW (11.7-14.6) % 11.9 Plt Count (130-400) 10^3/uL 165 MPV (8.0-11.0) fL 9.9 Immature Gran % % 0.7 Neutrophils % % 83.6 Lymphocytes % % 9.7 Monocytes % % 5.4 Eosinophils % % 0.3 Basophils % % 0.3 Nucleated RBC % (0.0-0.3) % 0.0 Absolute Neutrophils (1.2-6.7) 10^3/uL 6.37 Absolute Lymphocytes (1.2-3.4) 10^3/uL 0.74 L Absolute Monocytes (0.1-0.8) 10^3/uL 0.41 Absolute Eosinophils (0.0-0.7) 10^3/uL 0.02 Absolute Basophils (0.0-0.2) 10^3/uL 0.02 PT (9.1-11.1) sec 9.9 INR (0.9-1.1) 1.0 APTT (20.6-30.2) sec 23.1 VBG Lactate (<or=2.0) mmol/L 1.5 Sodium (136-145) mmol/L 144 Potassium (3.5-5.1) mmol/L 4.6 Chloride (98-107) mmol/L 110 H Carbon Dioxide (20.0-31.0) mmol/L 23.7 Anion Gap (3-11) mmol/L 10.3 BUN (9-23) mg/dL 22 Creatinine (0.55-1.02) mg/dL 1.40 H Est GFR (CKD-EPI 2020) (mL/min/1.73m2) 38.46 Glucose (74-106) mg/dL 161 H Calcium (8.3-10.6) mg/dL 8.9 Magnesium (1.6-2.6) mg/dL 1.7 Total Bilirubin (0.2-1.2) mg/dL 0.90 AST (<34) U/L 61 H ALT (10-49) U/L 99 H Alkaline Phosphatase (46-116) U/L 213 H Ammonia (11-32) umol/L < 10 L Total Protein (5.7-8.2) g/dL 7.0 Albumin (3.2-5.0) g/dL 4.4 Lipase (<53) U/L 23 Urine Color (Yellow) Rere Urine Clarity (Clear) Cloudy Urine pH (5-8) 5.0 Ur Specific [place] (1.005-1.025) 1.010 Urine Protein (Neg-Trace) mg/dL 100 H Urine Ketones (Negative) mg/dL Negative Urine Blood (Negative) Large H Urine Nitrite (Negative) Positive H Urine Bilirubin (Negative) Negative Urine Urobilinogen (Up to 0.2) mg/dL 0.2 Ur Leukocyte Esterase (Negative) Small H Urine RBC (0-2) HPF >50 H Urine WBC (0-5) HPF 5-10 Ur Epithelial Cells (Negative) HPF Negative Urine Crystals (Negative) HPF Few Uric Acid Urine Bacteria (Negative) HPF Moderate Urine Mucus (Negative) Negative Ur Culture Indicated? No Urine Glucose (Negative) mg/dL Negative Discharge Plan Disposition Patient Disposition: Transfer-Acute Inpatient Care Specific Acute Inpt Facility: [facility] Condition: Stable Discharge Details Clinical Impression: Calculus of right ureter, Obstructive uropathy, Urinary tract infection Primary Care Provider: Deandra Hutchins ED Provider: Joe Dickson Home Meds and New Rx's Prescriptions: No Action ergocalciferol (vitamin D2) 1,250 mcg (50,000 unit) capsule 1,250 mcg PO QWEEK Patient Comments: MONDAYS Glucerna Snack Shake Liquid PO mycophenolate mofetil 250 mg capsule 500 mg PO BID acetaminophen 500 mg tablet 500 mg PO Q6H PRN sodium bicarbonate 650 mg tablet 650 mg PO BID vitamin A acetate 3,000 mcg (10,000 unit) tablet, sublingual 3,000 mcg PO DAILY levalbuterol tartrate [Xopenex HFA] 45 mcg/actuation HFA aerosol inhaler 2 inh inhalation .Q4-6HR diclofenac sodium 1 % Gel 2 g topical QID PRN PRNQty: 100 0RF Rx Instructions: apply to Left knee folic acid 1 mg Tablet 1 mg PO DAILY Qty: 30 0RF magnesium chloride [Mag 64] 64 mg Tablet,Delayed Release (Dr/Ec) 128 mg PO BID Qty: 120 0RF (DME) Dexcom G7 Sensor Device See Rx Instructions .Route Qty: 3 0RF Rx Instructions: For blood sugar monitoring in am, before meals, and at bedtime (DME) pen needle, diabetic [Sure-Fine Pen [place]] 31 gauge x 5/16 needle See Rx Instructions .Route Qty: 200 1RF Rx Instructions: For lantus injections BID and aspart AC/HS (DME) Dexcom G7 Neuropsychology Medical Consultant Misc See Rx Instructions .Route Qty: 1 0RF Rx Instructions: For blood sugar monitoring AC/HS (DME) lancets 30 gauge misc See Rx Instructions .Route Qty: 200 0RF Rx Instructions: As directed ([facility]) 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 meter Kit See Rx Instructions .Route Qty: 1 0RF Rx Instructions: glucometer for blood sugar checks AC/HS (DME) Blood Glucose Test Strip See Rx Instructions .Route Qty: 200 0RF Rx Instructions: For blood sugar checks AC&HS insulin aspart U-100 [Novolog FlexPen U-100 Insulin] 100 unit/mL (3 mL) insulin pen 1 sliding scale dose subcut USEASDIRECTD MDD 100 units Qty: 15 0RF Rx Instructions: Take AC and HS. Mealtime: take 2 units per 10 grams of carbs consumed, up to 20 units per meal. In addition, take 2 units for every 50 points that blood sugar is over 150, up to 10 units AC/HS. pantoprazole 40 mg tablet,delayed release (DR/EC) 40 mg PO DAILY metformin 500 mg tablet extended release 24 hr 500 mg PO DAILY Patient Comments: TAKE 1 TABLET BY MOUTH EVERY MORNING WITH FOOD tacrolimus 0.5 mg capsule 1 mg PO Q12H Patient Comments: TAKE 2 CAPSULES BY MOUTH EVERY MORNING AND 2 EVERY EVENING insulin glargine [Lantus Solostar U-100 Insulin] 100 unit/mL (3 mL) insulin pen 15 unit SUBCUT HS midodrine 2.5 mg Tablet 5 mg PO TID 90 Days Qty: 540 2RF
== END 2025-01-29 23:18 | disposition short-term general hospital (02) ==
PROVIDERS: Physician Assistant; Emergency Provider Physician Assistant; PCP Family Medicine
DX: N13.2 Hydronephrosis with renal and ureteral calculous obstruction (principal); N39.0 Urinary tract infection, site not specified
CPT/HCPCS: 99285 ×2; 36415; 96375; 96376; 00123; 80053; 83690; 87040; 93005; 96361; 96365; 96368; 74177; 81003; 81015; 82140; 83605; 83735; 85025; 85610; 85730; 93010; J0696; J2270; J2405; J2543; J3490